=== PATIENT | female | born 1945 | race American Indian/Alaskan Native ===

== ENCOUNTER 2016-11-06 10:21 | Emergency (ER) | payer MEDICARE, OTHER ==
[2016-11-06 10:21] VITALS: PULSE 96
[2016-11-06 11:08] VITALS: RESP 18; TEMP 97.4; BMI 28.6
--- NOTE | 2016-11-06 13:36 | RAD ---
PROCEDURE: Left Ankle Radiographs. HISTORY: ankle pain s/p fall 2 days ago COMPARISON: Comparison is made to the previous study dated 06/01/2015 FINDINGS: BONES: Normal. No fracture. JOINTS: No evidence of dislocation. Mild osteoarthritic changes. SOFT TISSUES: Soft tissue swelling seen more prominent at the lateral malleolus. OTHER FINDINGS: None. IMPRESSION: No evidence of acute fracture or dislocation. Mild osteoarthritic changes. Mild soft tissue swelling more prominent at the lateral malleolus.
--- NOTE | 2016-11-06 13:37 | RAD ---
PROCEDURE: Left Foot Radiographs. HISTORY: foot pain/fall COMPARISON: None. FINDINGS: BONES: No evidence of acute fracture. Suspicious for diffuse osteopenia. Small calcaneal spur. JOINTS: Mild arthritic degenerative changes SOFT TISSUES: Normal. OTHER FINDINGS: None. IMPRESSION: No evidence of acute fracture or dislocation. Suspicious for osteopenia.
--- NOTE | 2016-11-06 14:11 | ED PDOC ---
Arrival/HPI - General Chief Complaint: Lower Extremity Problem/Injury Time Seen by Provider: 11/06/16 11:51 Historian: Patient, Family - History of Present Illness Narrative History of Present Illness (Text): 11/06/16 16:32 71-year-old female presents today with a 2 day history of left-sided ankle and foot pain. Patient states 2 days ago she was walking with her walker the walker got stuck she tripped and fell injuring the left ankle and foot. Patient states she has a history of diabetic neuropathy in the legs and always has chronic pain but she's had increased swelling and pain to the ankle and foot on the left side. Patient states she was taking Tylenol with Codeine for pain at home with some improvement. Patient states she has been able to walk on the ankle but with pain. Past Medical History - Provider Review Nursing Documentation Reviewed: Yes - Travel History Have you recently traveled outside [place] w/in the past 3 mons?: No - Infectious Disease Hx of Infectious Diseases: None - Tetanus Immunization Tetanus Immunization: Unknown - Reproductive Menopause: Yes - Cardiac Hx Cardiac Disorders: Yes (CAD) Hx Congestive Heart Failure: Yes Hx Hypertension: Yes - Pulmonary Hx Chronic Obstructive Pulmonary Disease (COPD): Yes - Neurological Hx Neurological Disorder: No - HEENT Hx HEENT Disorder: Yes (WEARS RX GLASSES) - Renal Hx Renal Failure: Yes - Endocrine/Metabolic Hx Diabetes Mellitus Type 2: Yes - Hematological/Oncological Hx Blood Disorders: Yes Hx Anemia: Yes (IRON DEFICIENCY ANEMIA) - Integumentary Hx Dermatological Disorder: No - Musculoskeletal/Rheumatological Hx Arthritis: Yes - Gastrointestinal Hx Gastrointestinal Disorders: Yes (THORACENTESIS WITH 17OO CC OF FLUID REMOVED 06-27-16) - Genitourinary/Gynecological Hx Genitourinary Disorders: Yes (HYSTERECTOMY) - Psychiatric Hx Psychophysiologic Disorder: Yes (SMOKED CIGARETTES PPD . QUIT 15 YRS AGO) Hx Anxiety: Yes Hx Substance Use: No - Surgical History Hx Cardiac Catheterization: Yes Hx Hysterectomy: Yes Hx Open Heart Surgery: Yes - Anesthesia Hx Anesthesia: Yes Hx Anesthesia Reactions: No Hx Malignant Hyperthermia: No - Suicidal Assessment Feels Threatened In Home Enviroment: No Family/Social History - Physician Review Nursing Documentation Reviewed: Yes Family/Social History: Unknown Family HX Smoking Status: Former Smoker Hx Alcohol Use: No Hx Substance Use: No Allergies/Home Meds Allergies/Adverse Reactions: Allergies shellfish Allergy (Mild, Uncoded 11/06/16 11:04) ITCHING Home Medications: Home Meds Medication Instructions Recorded Confirmed Spironolactone [Aldactone] 25 mg PO DAILY 08/17/14 11/06/16 Apixaban [Eliquis] 2.5 mg PO BID 05/05/16 11/06/16 Atorvastatin [Lipitor] 40 mg PO DAILY 05/05/16 11/06/16 Calcium Acetate [Phoslo] 1 tab PO DAILY 07/01/16 11/06/16 Folic Acid 1 mg PO DAILY 07/01/16 11/06/16 Acetaminophen/Oxycodone Hydr 1 tab PO Q6H 11/06/16 11/06/16 [Percocet 10/325 mg Tab] Magnesium Oxide [Magnesium] 400 mg PO DAILY 11/06/16 11/06/16 Review of Systems - Review of Systems Constitutional: absent: Fatigue, Fevers Respiratory: absent: SOB, Cough Cardiovascular: absent: Chest Pain, Palpitations Gastrointestinal: absent: Abdominal Pain, Diarrhea, Nausea Genitourinary Female: absent: Dysuria Musculoskeletal: Arthralgias Skin: absent: Rash, Pruritis Neurological: absent: Headache, Dizziness Physical Exam Vital Signs Reviewed: Yes Vital Signs Temp Pulse Resp BP Pulse Ox 11/06/16 14:22 60 18 115/64 94 L 11/06/16 11:00 97.4 F L 62 18 113/40 L 95 Temperature: Afebrile Blood Pressure: Normal Pulse: Regular Respiratory Rate: Normal Appearance: Positive for: Well-Appearing, Non-Toxic, Comfortable Pain Distress: None Mental Status: Positive for: Alert and Oriented X 3 - Systems Exam Head: Present: Atraumatic Neck: Present: Normal Range of Motion Cardiovascular: Present: Regular Rate and Rhythm Lower Extremity: Present: NORMAL PULSES, Tenderness (Left ankle: Positive edema and tenderness noted over both the lateral medial malleolus. No erythema. No warmth. Positive tenderness noted over the dorsal aspect of the left foot. Cap refill less than 2. Pulses intact.), Swelling, Capillary Refill < 2 s. No: Normal Inspection, CALF TENDERNESS, Normal ROM (Limited ROM of ankle with pain.) Neurological: Present: GCS=15 Skin: Present: Warm, Dry, Normal Color. No: Rashes Psychiatric: Present: Alert, Oriented x 3 Medical Decision Making ED Course and Treatment: 11/06/16 16:35 Patient nontoxic well-appearing in no distress with stable vital signs 71-year-old female with a 2 day history of ankle pain status post mechanical fall X-rays of the left foot and left ankle show no fracture as read by the radiologist Tylenol given by mouth for pain Patient placed in short leg splint. Postoperative boot given. Patient was advised to avoid ambulation on the leg. Case was discussed in depth with Dr. Mayes who will see the patient in the office tomorrow at 1pm. All results discussed in depth with the patient and family members. The patient 's daughter arranged follow-up with Dr. Mayes for tomorrow at 1 PM in the office. pt requesting rx for tylenol #3 for pain. Patient verbalizes understanding of discharge instructions and need for immediate followup. Impression: Ankle pain, foot pain tylenol #3 every 6 hours as needed for pain follow up with dr. mayes tomorrow at 11am in the office. rest, ice, elevation return if symptoms worsen,persist or if new symptoms develop. - RAD Interpretation Radiology Orders: 11/06/16 11:51 ANKLE LEFT 3 VIEWS ROUTINE [RAD] Stat FOOT LEFT 3 VIEWS ROUTINE [RAD] Stat - Medication Orders Current Medication Orders: Discontinued Medications Acetaminophen (Tylenol 325mg Tab) 650 mg PO STAT STA Stop: 11/06/16 11:52 Last Admin: 11/06/16 12:08 Dose: 650 MG [facility] Pain/Vitals Document 11/06/16 12:08 [facility] (Rec: 11/06/16 12[facility]09 [id number] Pain Reassessment Is This A Pain ReAssessment? No Procedures - Splinting Location: left ankle Hand-Made Type: fiberglass Splint: posterior short leg splint Pre-Proc Neuro Vasc Exam: normal Post-Proc Neuro Vasc Exam: normal Disposition/Present on Arrival - Present on Arrival Any Indicators Present on Arrival: Yes History of DVT/PE: No History of Uncontrolled Diabetes: Yes Urinary Catheter: No History of Decub. Ulcer: No History Surgical Site Infection Following: None - Disposition Have Diagnosis and Disposition been Completed?: Yes Diagnosis: Ankle pain, Foot pain Disposition: HOME/ ROUTINE Disposition Time: 13:12 Patient Plan: Discharge Condition: GOOD Discharge Instructions (ExitCare): Arthralgia (ED) Additional Instructions: tylenol #3 every 6 hours as needed for pain follow up with dr. mayes tomorrow at 11am in the office. rest, ice, elevation return if symptoms worsen,persist or if new symptoms develop. Prescriptions: Acetaminophen/Codeine [Tylenol/Codeine 300 MG/30 MG] 1 tab PO Q6H PRN #6 tab PRN Reason: Pain, Severe Referrals: Laurel Schultz MD [Primary Care Provider] - Follow up with primary Fabrizio Mayes DO [Staff Provider] - Follow up with primary
[2016-11-06 14:24] VITALS: BP 115/64; PULSE 60; O2SAT 94
== END 2016-11-06 14:23 | disposition home or self-care (01) ==
LOC: ED 10:21
DX: M25.572 Pain in left ankle and joints of left foot (principal); M79.672 Pain in left foot

== ENCOUNTER 2018-09-06 10:09 | Outpatient (CLI) | payer MEDICARE | END 2018-09-06 10:10 | disposition home or self-care (01) | LOC: CARDIO 10:09 | DX: I25.10 Atherosclerotic heart disease of native coronary artery without angina pectoris (principal); I10 Essential (primary) hypertension; Z95.0 Presence of cardiac pacemaker; E11.9 Type 2 diabetes mellitus without complications; R42 Dizziness and giddiness; R06.02 Shortness of breath ==

== ENCOUNTER 2018-10-18 16:44 | Inpatient (IN) | payer MEDICARE, OTHER ==
[2018-10-18 16:49] VITALS: BMI 38.9
[2018-10-18] MEDS ORDERED: Albuterol-Ipratrop 3 mg / 0.5 (3 ml) UD ONE (16:58)
--- NOTE | 2018-10-18 16:58 | ED PDOC ---
Arrival/HPI - General Chief Complaint: Shortness Of Breath Time Seen by Provider: 10/18/18 16:53 Historian: Family, EMS - History of Present Illness Narrative History of Present Illness (Text): 10/18/18 16:55 A 73 year old female, whose past medical history includes COPD and CHF, presents to the emergency department for respiratory distress from earlier today. Family reports patient has had shortness of breath for the past 2 days that progressively getting worse. Per EMS patient was found to be hypoxic on scene with a pulse ox measurement of 76. EMS reports patient responded well to supplemental oxygen and was brought to ER on CPAP. Patient was unable to provide history and review of system due to respiratory distress. PMD: Dr. Schultz, Dr. Latif Time/Duration: Other (ealier today) Symptom Onset: Gradual Symptom Course: Improving Activities at Onset: Light Context: Home Past Medical History - Provider Review Nursing Documentation Reviewed: Yes - Infectious Disease Hx of Infectious Diseases: None - Tetanus Immunization Tetanus Immunization: Unknown - Reproductive Menopause: Yes - Cardiac Hx Cardiac Disorders: Yes (CAD) Hx Congestive Heart Failure: Yes Hx Hypertension: Yes - Pulmonary Hx Chronic Obstructive Pulmonary Disease (COPD): Yes - Neurological Hx Neurological Disorder: No - HEENT Hx HEENT Disorder: Yes (WEARS RX GLASSES) - Renal Hx Renal Failure: Yes - Endocrine/Metabolic Hx Diabetes Mellitus Type 2: Yes - Hematological/Oncological Hx Blood Disorders: Yes Hx Anemia: Yes (IRON DEFICIENCY ANEMIA) - Integumentary Hx Dermatological Disorder: No - Musculoskeletal/Rheumatological Hx Arthritis: Yes - Gastrointestinal Hx Gastrointestinal Disorders: Yes (THORACENTESIS WITH 17OO CC OF FLUID REMOVED 06-27-16) - Genitourinary/Gynecological Hx Genitourinary Disorders: Yes (HYSTERECTOMY) - Psychiatric Hx Psychophysiologic Disorder: Yes (SMOKED CIGARETTES PPD . QUIT 15 YRS AGO) Hx Anxiety: Yes Hx Substance Use: No - Surgical History Hx Cardiac Catheterization: Yes Hx Hysterectomy: Yes Hx Open Heart Surgery: Yes - Anesthesia Hx Anesthesia: Yes Hx Anesthesia Reactions: No Hx Malignant Hyperthermia: No - Suicidal Assessment Feels Threatened In Home Enviroment: No Family/Social History - Physician Review Nursing Documentation Reviewed: Yes Family/Social History: No Known Family HX Smoking Status: Former Smoker Hx Alcohol Use: No Hx Substance Use: No Allergies/Home Meds Allergies/Adverse Reactions: Allergies shellfish Allergy (Mild, Uncoded 10/18/18 16:55) ITCHING Home Medications: Home Meds Medication Instructions Recorded Confirmed Spironolactone [Aldactone] 25 mg PO DAILY 08/17/14 10/18/18 Apixaban [Eliquis] 2.5 mg PO BID 05/05/16 10/18/18 Atorvastatin [Lipitor] 40 mg PO DAILY 05/05/16 10/18/18 Folic Acid 1 mg PO DAILY 07/01/16 10/18/18 Magnesium Oxide [Magnesium] 400 mg PO DAILY 11/06/16 10/18/18 Albuterol Sulfate [Proair Hfa] 0.09 mg IH DAILY 10/18/18 10/18/18 Albuterol Sulfate [Ventolin Hfa] 1 puff IH Q4 PRN 10/18/18 10/18/18 Calcitriol [Rocaltrol] 0.25 mcg PO DAILY 10/18/18 10/18/18 Ferrous Sulfate [Feosol] 325 mg PO DAILY 10/18/18 10/18/18 Pregabalin [Lyrica] 75 mg PO BID 10/18/18 10/18/18 metOLazone [Zaroxolyn] 5 mg PO DAILY 10/18/18 10/18/18 Review of Systems - Review of Systems Systems not reviewed;Unavailable: Respiratory Distress Physical Exam Vital Signs Reviewed: Yes Temperature: Febrile Blood Pressure: Hypertensive Pulse: Tachycardic Respiratory Rate: Normal Appearance: Positive for: Other (moderate respiratory distress) - Systems Exam Head: Present: Atraumatic, Normocephalic Pupils: Present: PERRL Extroacular Muscles: Present: EOMI Conjunctiva: Present: Normal Respiratory/Chest: Present: Good Air Exchange (fair air exchange bilaterally), Wheezes (diffuse bilateral expiratory wheezing), Tachypneic (tachypnei with excess muscle use) Cardiovascular: Present: Tachycardic (tachycardic but normal rhythm) Lower Extremity: Present: Edema (trace edema to bilateral lower extremities) Skin: Present: Warm, Dry, Normal Color. No: Rashes Medical Decision Making ED Course and Treatment: 10/18/18 16:55 Impression: 73 year old female presenting to the emergency room for respiratory distress. Plan: -- Type and screen -- ABG shock panel -- VBG -- Labs -- CBC -- COAGs -- Chest X-ray -- Duoneb -- Solumedrol -- Blood culture -- Urinalysis -- Reassess and disposition Prior Visits: Notes and results from previous visits were reviewed. Progress Notes: 10/18/18 18:08: patient appears much more comfortable in BIPBP, she is now able to talk underneath the mask. 10/18/18 18:[address] schultz. patient to be admitted for copd exacerbation, empiric tx for pneumonia. patient has exhibited good improvement in respiratory distress since presenting to ED. will request office technology instructor for ICU screening. 10/18/18 19:[address] henriquez, will see the patient in consultation - Critical Care Critical Care Minutes: 60 minutes - RAD Interpretation Narrative RAD Interpretations (Text): 10/18/18 19:10 Procedure: Chest X-ray Dictator: Whit Plummer Impression: Moderate interstitial edema/infection. Cardiomegaly. Median sternotomy wires. Dual lead left-sided pacemaker. Chain Tender: Radiologist - EKG Interpretation EKG Interpretation (Text): 10/18/18 17:53 1700: significant baseline artifact, undetermined rhythm at 119 bpm 10/18/18 18:52 sinus rhythm at 91 bpm, nml qrs, rbbb, no ectopy, lateral flipped t waves Interpreted by ED Physician: Yes - Scribe Statement The provider has reviewed the documentation as recorded by the Daryl Hernández All medical record entries made by the Scribe were at my direction and personally dictated by me. I have reviewed the chart and agree that the record accurately reflects my personal performance of the history, physical exam, medical decision making, and the department course for this patient. I have also personally directed, reviewed, and agree with the discharge instructions and disposition. Disposition/Present on Arrival - Present on Arrival Any Indicators Present on Arrival: No History of DVT/PE: No History of Uncontrolled Diabetes: Yes Urinary Catheter: No History of Decub. Ulcer: No History Surgical Site Infection Following: None - Disposition Have Diagnosis and Disposition been Completed?: Yes Diagnosis: Pneumonia Disposition: HOSPITALIZED Disposition Time: 18:12 Patient Plan: Admission Patient Problems: Current Active Problems Problem Status Onset Pneumonia Acute Condition: GUARDED Referrals: Laurel Schultz MD [Primary Care Provider] - Follow up with primary Forms: food.de (Bulgarian)
[2018-10-18] MEDS: Albuterol-Ipratrop 3 mg / 0.5 (3 ml) UD IH SCH ×3 (17:00→17:30)
[2018-10-18 17:05] LABS: VENOUS BLOOD GAS BASE EXCESS 4.5 mmol/L (0.0-2.0); VENOUS BLOOD GAS PO2 42 mm/Hg (30-55); VENOUS BLOOD PH 7.22 (7.32-7.43)
[2018-10-18 17:13] LABS: BASO # 0.02 K/mm3 (0.0-2.0); BASO % 0.1 % (0.0-3.0); EOS # 0.1 (0.0-0.7); EOS % 0.8 % (1.5-5.0); HEMOGLOBIN 9.4 g/dL (12.0-16.0); LYMPH # 1.6 (1.2-3.4); LYMPH % 10.6 % (22.0-35.0); MEAN CELL VOLUME 93.3 fl (80.0-105.0); MEAN CORPUSCULAR HEMOGLOBIN 27.5 pg (25.0-35.0); MEAN CORPUSCULAR HGB CONC 29.5 g/dl (31.0-37.0); MEAN PLATELET VOLUME 12.5 fl (7.0-11.0); MONO # 1.1 (0.1-0.6); MONO % 7.2 % (1.0-6.0); RBC 3.42 10^6/uL (3.5-6.1); RED CELL DISTRIBUTION WIDTH 17.4 % (11.5-14.5); WHITE BLOOD COUNT 15.5 10^3/uL (4.5-11.0)
[2018-10-18 17:23] LABS: INR 1.63; PARTIAL THROMBOPLASTIN TIME 33.6 Seconds (26.9-38.3); PROTHROMBIN TIME 18.1 SECONDS (9.4-12.5)
[2018-10-18 17:28] LABS: ARTERIAL BLOOD GAS HCO3 31.8 mmol/L (21-28); ARTERIAL BLOOD GAS O2 SAT 99.4 % (95-98); ARTERIAL BLOOD GAS PCO2 59 mm/Hg (35-45); ARTERIAL BLOOD GAS PH 7.34 (7.35-7.45); ARTERIAL BLOOD GAS TCO2 33.6 mmol.L (22-28)
[2018-10-18 17:36] LABS: URINE BILIRUBIN NEGATIVE (NEGATIVE); URINE BLOOD SMALL (NEGATIVE); URINE GLUCOSE (UA) 100 mg/dL (NEGATIVE); URINE LEUKOCYTE ESTERASE MODERATE Leu/uL (NEGATIVE); URINE PROTEIN 100 mg/dL (<30 mg/dL); URINE UROBILINOGEN 0.2 E.U./dL (<1 E.U./dL)
[2018-10-18] MEDS ORDERED: Piperacillin/Tazobact 3.375 gm 100 ML IVPB STA (17:37)
[2018-10-18 18:23] LABS: URINE APPEARANCE CLEAR (CLEAR)
[2018-10-18 18:30] LABS: URINE EPITHELIAL CELLS MANY /hpf (0-5); URINE RBC 20 - 25 /hpf (0-2)
[2018-10-18 18:44] LABS: ALB/GLOB RATIO 1.3 (1.1-1.8); CALCIUM 9.6 mg/dL (8.4-10.5)
--- NOTE | 2018-10-18 18:52 | RAD ---
HISTORY: chest pain COMPARISON: Chest x-ray performed 07/01/16 TECHNIQUE: Chest, one view. FINDINGS: Examination limited by habitus LUNGS: Moderate interstitial edema or infection. Please note that chest x-ray has limited sensitivity for the detection of pulmonary masses. PLEURA: No significant pleural effusion identified. No definite pneumothorax . CARDIOVASCULAR: Median sternotomy wires. Dual lead left-sided pacemaker. Cardiomegaly. Dense atherosclerotic calcifications of the aorta. OSSEOUS STRUCTURES: Degenerative changes. VISUALIZED UPPER ABDOMEN: Unremarkable. OTHER FINDINGS: None. IMPRESSION: Moderate interstitial edema/infection. Cardiomegaly. Median sternotomy wires. Dual lead left-sided pacemaker.
[2018-10-18 19:03] LABS: TROPONIN I 0.05 ng/mL
[2018-10-18] MEDS ORDERED: Albuterol-Ipratrop 3 mg / 0.5 (3 ml) UD IH PRN (19:35)
[2018-10-18] MEDS ORDERED: Oxycodone/Acetaminophen 5/325 mg Tab PO PRN (19:35)
--- NOTE | 2018-10-18 20:23 | CP.PCM.CON ---
<Jacinot Bob - Last Filed: 10/18/18 21:17> History of Present Illness - History of Present Illness History of Present Illness: Patient is a 71 female with a history of COPD, diastolic CHF, moderate pulmonary hypertension, moderate mitral regurgitation, modeterate tricuspid regurgitation, chronic kidney disease, CAD s/p open heart surgery, NIDDM who presents with complaints of increased shortness of breath for the past 2 days with productive cough associated with clear sputum. As per EMS patient was found to be hypoxic with o2 saturation of 76^. Patient was then placed on CPAP and latasha to the ED. In ED patient was noted to be in respiratory distress and was placed on BiPAP. Patient admits to sick contacts; daughter and niece were both sick whom patient was exposed to. 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 absent: Chest Pain - Respiratory Respiratory: Cough, Dyspnea, Wheezing - Gastrointestinal Gastrointestinal: absent: Diarrhea - Genitourinary Genitourinary: absent: Dysuria - Musculoskeletal Musculoskeletal: absent: Back Pain - Neurological Neurological: absent: Dizziness Past Patient History - Infectious Disease Hx of Infectious Diseases: None - Tetanus Immunizations Tetanus Immunization: Unknown - Past Medical History & Family History Past Medical History?: Yes - Past Social History Smoking Status: Former Smoker - CARDIAC Hx Cardiac Disorders: Yes (CAD) Hx Congestive Heart Failure: Yes Hx Hypertension: Yes - PULMONARY Hx Chronic Obstructive Pulmonary Disease (COPD): Yes - NEUROLOGICAL Hx Neurological Disorder: No - HEENT Hx HEENT Problems: Yes (WEARS RX GLASSES) - RENAL Hx Renal Failure: Yes - ENDOCRINE/METABOLIC Hx Diabetes Mellitus Type 2: Yes - HEMATOLOGICAL/ONCOLOGICAL Hx Blood Disorders: Yes Hx Anemia: Yes (IRON DEFICIENCY ANEMIA) - INTEGUMENTARY Hx Dermatological Problems: No - MUSCULOSKELETAL/RHEUMATOLOGICAL Hx Arthritis: Yes - GASTROINTESTINAL Hx Gastrointestinal Disorders: Yes (THORACENTESIS WITH 17OO CC OF FLUID REMOVED 06-27-16) - GENITOURINARY/GYNECOLOGICAL Hx Genitourinary Disorders: Yes (HYSTERECTOMY) - PSYCHIATRIC Hx Psychophysiologic Disorder: Yes (SMOKED CIGARETTES PPD . QUIT 15 YRS AGO) Hx Anxiety: Yes Hx Substance Use: No - SURGICAL HISTORY Hx Cardiac Catheterization: Yes Hx Hysterectomy: Yes Hx Open Heart Surgery: Yes - ANESTHESIA Hx Anesthesia: Yes Hx Anesthesia Reactions: No Hx Malignant Hyperthermia: No Meds Allergies/Adverse Reactions: Allergies Allergy/AdvReac Type Severity Reaction Status Date / Time shellfish Allergy Mild ITCHING Uncoded 10/18/18 16:55 - Medications Medications: Current Medications Acetaminophen (Tylenol 325mg Tab) 650 mg PO Q6H PRN PRN Reason: Fever >100.4 F Albuterol/Ipratropium (Duoneb 3 Mg/0.5 Mg (3 Ml) Ud) 3 ml IH Q2H PRN PRN Reason: Shortness of Breath Apixaban (Eliquis) 2.5 mg PO BID [facility]; Protocol Last Admin: 10/18/18 20:16 Dose: 2.5 mg Atorvastatin Calcium (Lipitor) 40 mg PO DAILY [facility] Folic Acid (Folic Acid) 1 mg PO DAILY [facility] Furosemide (Lasix) 40 mg IVP DAILY [facility] Cefepime HCl (Maxipime 1gm) 1 gm in 100 mls @ 100 mls/hr IVPB Q12 [facility]; Protocol Azithromycin (Zithromax 500mg In Ns) 500 mg in 250 mls @ 167 mls/hr IVPB DAILY [facility]; Protocol Insulin Human Regular (Humulin R High) 0 units SC ACHS [facility]; Protocol Levalbuterol HCl (Xopenex) 1.25 mg IH [id number] [facility] Lisinopril (Zestril) 20 mg PO DAILY [facility] Methylprednisolone (Solu-Medrol) 40 mg IV Q12 [facility] Metoprolol Tartrate (Lopressor) 50 mg PO BID [facility] Last Admin: 10/18/18 20:15 Dose: 50 mg Montelukast Sodium (Singulair) 10 mg PO HS [facility] Ondansetron HCl (Zofran Inj) 4 mg IVP Q6H PRN PRN Reason: Nausea/Vomiting Oxycodone/Acetaminophen (Percocet 5/325 Mg Tab) 1 tab PO Q6H PRN PRN Reason: Pain, moderate (4-7) Stop: 10/21/18 19:36 Pantoprazole Sodium (Protonix Ec Tab) 40 mg PO 0630 [facility] Pregabalin (Lyrica) 75 mg PO BID [facility] Last Admin: 10/18/18 20:16 Dose: 75 mg Sildenafil Citrate (Revatio) 20 mg PO BID [facility] Spironolactone (Aldactone) 25 mg PO DAILY [facility] Physical Exam - Head Exam Head Exam: ATRAUMATIC, NORMAL INSPECTION, NORMOCEPHALIC - Eye Exam Eye Exam: EOMI, Normal appearance - ENT Exam ENT Exam: Mucous Membranes Dry - Respiratory Exam Respiratory Exam: Wheezes - Cardiovascular Exam Cardiovascular Exam: REGULAR RHYTHM, +S1, +S2 - GI/Abdominal Exam GI & Abdominal Exam: Normal Bowel Sounds, Soft - Extremities Exam Extremities exam: Positive for: normal inspection - Neurological Exam Neurological exam: Alert, CN II-XII Intact, Oriented x3 - Psychiatric Exam Psychiatric exam: Normal Affect, Normal Mood - Skin Skin Exam: Normal Color, Warm Results - Vital Signs Recent Vital Signs: Last Vital Signs Temp 100.8 F H 10/18/18 19:08 Pulse 75 10/18/18 20:15 Resp 18 10/18/18 19:08 BP 164/57 H 10/18/18 20:15 Pulse Ox 98 10/18/18 19:08 - Labs Result Diagrams: 10/18/18 17:00 10/18/18 17:40 Labs: Laboratory Results - last 24 hr 10/18/18 10/18/18 10/18/18 16:55 17:00 17:00 WBC 15.5 H RBC 3.42 L Hgb 9.4 L Hct 31.9 L MCV 93.3 MCH 27.5 MCHC 29.5 L RDW 17.4 H Plt Count 234 MPV 12.5 H Neut % (Auto) 81.3 H Lymph % (Auto) 10.6 L [place] % (Auto) 7.2 H Eos % (Auto) 0.8 L Baso % (Auto) 0.1 Lymph # (Auto) 1.6 [place] # (Auto) 1.1 H Eos # (Auto) 0.1 Baso # (Auto) 0.02 Absolute Neuts (auto) 12.61 H PT 18.1 H INR 1.63 APTT 33.6 pCO2 pO2 42 HCO3 ABG pH ABG Total CO2 ABG O2 Saturation ABG Base Excess ABG Potassium VBG pH 7.22 L VBG pCO2 86.0 H* VBG HCO3 35.2 H VBG Total CO2 37.8 H VBG O2 Sat (Calc) 72.0 H VBG Base Excess 4.5 H VBG Potassium 6.6 H* Sodium 140.0 Chloride 103.0 Glucose 224 H Lactate 1.9 FiO2 21.0 Pressure Support Inspiratory BiPAP Blood Gas Comments Cv Crit Value Called To Jayashree branch rn Crit Value Called By Rst Blood Gas Notified Time 1701 Potassium Carbon Dioxide Anion Gap BUN Creatinine Est GFR ( Amer) Est GFR (Non-Af Amer) Random Glucose Calcium Phosphorus Magnesium Total Bilirubin AST ALT Alkaline Phosphatase Troponin I NT-Pro-B Natriuret Pep Total Protein Albumin Globulin Albumin/Globulin Ratio Arterial Blood Potassium Venous Blood Potassium 6.6 H* Urine Color Urine Appearance Urine pH Ur Specific Vega Urine Protein Urine Glucose (UA) Urine Ketones Urine Blood Urine Nitrate Urine Bilirubin Urine Urobilinogen Ur Leukocyte Esterase Urine RBC Urine WBC Ur Epithelial Cells Blood Type Blood Type Confirm Antibody Screen BBK History Checked 10/18/18 10/18/18 10/18/18 17:20 17:20 17:40 WBC RBC Hgb Hct MCV MCH MCHC RDW Plt Count MPV Neut % (Auto) Lymph % (Auto) [place] % (Auto) Eos % (Auto) Baso % (Auto) Lymph # (Auto) [place] # (Auto) Eos # (Auto) Baso # (Auto) Absolute Neuts (auto) PT INR APTT pCO2 59 H pO2 100.0 HCO3 31.8 H ABG pH 7.34 L ABG Total CO2 33.6 H ABG O2 Saturation 99.4 H ABG Base Excess 4.3 H ABG Potassium 5.0 VBG pH VBG pCO2 VBG HCO3 VBG Total CO2 VBG O2 Sat (Calc) VBG Base Excess VBG Potassium Sodium 140.0 141 Chloride 106.0 99 Glucose 200 H Lactate 0.8 FiO2 40.0 Pressure Support 7 Inspiratory BiPAP 12 Blood Gas Comments Crit Value Called To Crit Value Called By Blood Gas Notified Time Potassium 5.1 H Carbon Dioxide 33 Anion Gap 14 BUN 37 H Creatinine 2.1 H Est GFR ( Amer) 28 Est GFR (Non-Af Amer) 23 Random Glucose 207 H Calcium 9.6 Phosphorus 4.7 H Magnesium 1.9 Total Bilirubin 0.3 AST 43 H ALT 24 Alkaline Phosphatase 94 Troponin I 0.05 D NT-Pro-B Natriuret Pep 3960 H Total Protein 7.2 Albumin 4.0 Globulin 3.2 Albumin/Globulin Ratio 1.3 Arterial Blood Potassium 5.0 Venous Blood Potassium Urine Color yellow Urine Appearance Clear Urine pH 6.0 Ur Specific Vega 1.025 Urine Protein 100 H Urine Glucose (UA) 100 H Urine Ketones Negative Urine Blood Small H Urine Nitrate Negative Urine Bilirubin Negative Urine Urobilinogen 0.2 Ur Leukocyte Esterase Moderate H Urine RBC 20 - 25 H Urine WBC 10 - 15 H Ur Epithelial Cells Many H Blood Type Blood Type Confirm Antibody Screen BBK History Checked 10/18/18 10/18/18 17:50 18:20 WBC RBC Hgb Hct MCV MCH MCHC RDW Plt Count MPV Neut % (Auto) Lymph % (Auto) [place] % (Auto) Eos % (Auto) Baso % (Auto) Lymph # (Auto) [place] # (Auto) Eos # (Auto) Baso # (Auto) Absolute Neuts (auto) PT INR APTT pCO2 pO2 HCO3 ABG pH ABG Total CO2 ABG O2 Saturation ABG Base Excess ABG Potassium VBG pH VBG pCO2 VBG HCO3 VBG Total CO2 VBG O2 Sat (Calc) VBG Base Excess VBG Potassium Sodium Chloride Glucose Lactate FiO2 Pressure Support Inspiratory BiPAP Blood Gas Comments Crit Value Called To Crit Value Called By Blood Gas Notified Time Potassium Carbon Dioxide Anion Gap BUN Creatinine Est GFR ( Amer) Est GFR (Non-Af Amer) Random Glucose Calcium Phosphorus Magnesium Total Bilirubin AST ALT Alkaline Phosphatase Troponin I NT-Pro-B Natriuret Pep Total Protein Albumin Globulin Albumin/Globulin Ratio Arterial Blood Potassium Venous Blood Potassium Urine Color Urine Appearance Urine pH Ur Specific Vega Urine Protein Urine Glucose (UA) Urine Ketones Urine Blood Urine Nitrate Urine Bilirubin Urine Urobilinogen Ur Leukocyte Esterase Urine RBC Urine WBC Ur Epithelial Cells Blood Type O POSITIVE Blood Type Confirm O POSITIVE Antibody Screen Negative BBK History Checked No verified bt Assessment & Plan - Assessment and Plan (Free Text) Assessment: 71 F with history of COPD, Diastolic CHF, CKD presenting with shortness of breath and sputum production x 2 days found to be in respiratory distress requiring BiPAP. Plan: -Continue with BiPAP -Continue with duonebs, solumdrol, singulair, sildefanil -Continue with abx: Azithromycin to treat pneumonia -Proaclitonin -Maintain SpO2>90% -Continue diuresis with lasix and aldactone -Due to patient being stable on BiPAP patient does not need ICU and will be further monitored on telemetry. <Mini Juárez - Last Filed: 10/19/18 05:30> Meds - Medications Medications: Current Medications Acetaminophen (Tylenol 325mg Tab) 650 mg PO Q6H PRN PRN Reason: Fever >100.4 F Albuterol/Ipratropium (Duoneb 3 Mg/0.5 Mg (3 Ml) Ud) 3 ml IH Q2H PRN PRN Reason: Shortness of Breath Apixaban (Eliquis) 2.5 mg PO BID [facility]; Protocol Last Admin: 10/18/18 20:16 Dose: 2.5 mg Atorvastatin Calcium (Lipitor) 40 mg PO DAILY [facility] Folic Acid (Folic Acid) 1 mg PO DAILY [facility] Furosemide (Lasix) 40 mg IVP DAILY [facility] Cefepime HCl (Maxipime 1gm) 1 gm in 100 mls @ 100 mls/hr IVPB Q12 [facility]; Protocol Last Admin: 10/18/18 22:06 Dose: 100 mls/hr Azithromycin (Zithromax 500mg In Ns) 500 mg in 250 mls @ 167 mls/hr IVPB DAILY [facility]; Protocol Insulin Human Regular (Humulin R High) 0 units SC ACHS [facility]; Protocol Last Admin: 10/18/18 22:00 Dose: Not Given Levalbuterol HCl (Xopenex) 1.25 mg IH [id number] [facility] Last Admin: 10/19/18 01:07 Dose: Not Given Lisinopril (Zestril) 20 mg PO DAILY [facility] Methylprednisolone (Solu-Medrol) 40 mg IV Q12 [facility] Last Admin: 10/18/18 22:07 Dose: 40 mg Metoprolol Tartrate (Lopressor) 50 mg PO BID [facility] Last Admin: 10/18/18 20:15 Dose: 50 mg Montelukast Sodium (Singulair) 10 mg PO HS [facility] Last Admin: 10/18/18 22:07 Dose: 10 mg Ondansetron HCl (Zofran Inj) 4 mg IVP Q6H PRN PRN Reason: Nausea/Vomiting Oxycodone/Acetaminophen (Percocet 5/325 Mg Tab) 1 tab PO Q6H PRN PRN Reason: Pain, moderate (4-7) Stop: 10/21/18 19:36 Pantoprazole Sodium (Protonix Ec Tab) 40 mg PO 0630 [facility] Pregabalin (Lyrica) 75 mg PO BID [facility] Last Admin: 10/18/18 20:16 Dose: 75 mg Sildenafil Citrate (Revatio) 20 mg PO BID [facility] Spironolactone (Aldactone) 25 mg PO DAILY [facility] Results - Vital Signs Recent Vital Signs: Last Vital Signs Temp 100.8 F H 10/18/18 19:08 Pulse 80 10/19/18 02:00 Resp 20 10/19/18 00:25 BP 165/67 H 10/18/18 21:32 Pulse Ox 100 10/18/18 21:32 - Labs Result Diagrams: 10/18/18 17:00 10/18/18 17:40 Labs: Laboratory Results - last 24 hr 10/18/18 10/18/18 10/18/18 16:55 17:00 17:00 WBC 15.5 H RBC 3.42 L Hgb 9.4 L Hct 31.9 L MCV 93.3 MCH 27.5 MCHC 29.5 L RDW 17.4 H Plt Count 234 MPV 12.5 H Neut % (Auto) 81.3 H Lymph % (Auto) 10.6 L [place] % (Auto) 7.2 H Eos % (Auto) 0.8 L Baso % (Auto) 0.1 Lymph # (Auto) 1.6 [place] # (Auto) 1.1 H Eos # (Auto) 0.1 Baso # (Auto) 0.02 Absolute Neuts (auto) 12.61 H PT 18.1 H INR 1.63 APTT 33.6 pCO2 pO2 42 HCO3 ABG pH ABG Total CO2 ABG O2 Saturation ABG Base Excess ABG Potassium VBG pH 7.22 L VBG pCO2 86.0 H* VBG HCO3 35.2 H VBG Total CO2 37.8 H VBG O2 Sat (Calc) 72.0 H VBG Base Excess 4.5 H VBG Potassium 6.6 H* Sodium 140.0 Chloride 103.0 Glucose 224 H Lactate 1.9 FiO2 21.0 Pressure Support Inspiratory BiPAP Blood Gas Comments Cv Crit Value Called To Jayashree branch rn Crit Value Called By Rst Blood Gas Notified Time 1701 Potassium Carbon Dioxide Anion Gap BUN Creatinine Est GFR ( Amer) Est GFR (Non-Af Amer) Random Glucose Calcium Phosphorus Magnesium Total Bilirubin AST ALT Alkaline Phosphatase Troponin I NT-Pro-B Natriuret Pep Total Protein Albumin Globulin Albumin/Globulin Ratio Procalcitonin Arterial Blood Potassium Venous Blood Potassium 6.6 H* Urine Color Urine Appearance Urine pH Ur Specific Vega Urine Protein Urine Glucose (UA) Urine Ketones Urine Blood Urine Nitrate Urine Bilirubin Urine Urobilinogen Ur Leukocyte Esterase Urine RBC Urine WBC Ur Epithelial Cells Blood Type Blood Type Confirm Antibody Screen BBK History Checked 10/18/18 10/18/18 10/18/18 17:00 17:20 17:20 WBC RBC Hgb Hct MCV MCH MCHC RDW Plt Count MPV Neut % (Auto) Lymph % (Auto) [place] % (Auto) Eos % (Auto) Baso % (Auto) Lymph # (Auto) [place] # (Auto) Eos # (Auto) Baso # (Auto) Absolute Neuts (auto) PT INR APTT pCO2 59 H pO2 100.0 HCO3 31.8 H ABG pH 7.34 L ABG Total CO2 33.6 H ABG O2 Saturation 99.4 H ABG Base Excess 4.3 H ABG Potassium 5.0 VBG pH VBG pCO2 VBG HCO3 VBG Total CO2 VBG O2 Sat (Calc) VBG Base Excess VBG Potassium Sodium 140.0 Chloride 106.0 Glucose 200 H Lactate 0.8 FiO2 40.0 Pressure Support 7 Inspiratory BiPAP 12 Blood Gas Comments Crit Value Called To Crit Value Called By Blood Gas Notified Time Potassium Carbon Dioxide Anion Gap BUN Creatinine Est GFR ( Amer) Est GFR (Non-Af Amer) Random Glucose Calcium Phosphorus Magnesium Total Bilirubin AST ALT Alkaline Phosphatase Troponin I NT-Pro-B Natriuret Pep Total Protein Albumin Globulin Albumin/Globulin Ratio Procalcitonin 0.35 Arterial Blood Potassium 5.0 Venous Blood Potassium Urine Color yellow Urine Appearance Clear Urine pH 6.0 Ur Specific Vega 1.025 Urine Protein 100 H Urine Glucose (UA) 100 H Urine Ketones Negative Urine Blood Small H Urine Nitrate Negative Urine Bilirubin Negative Urine Urobilinogen 0.2 Ur Leukocyte Esterase Moderate H Urine RBC 20 - 25 H Urine WBC 10 - 15 H Ur Epithelial Cells Many H Blood Type Blood Type Confirm Antibody Screen BBK History Checked 10/18/18 10/18/18 10/18/18 17:40 17:50 18:20 WBC RBC Hgb Hct MCV MCH MCHC RDW Plt Count MPV Neut % (Auto) Lymph % (Auto) [place] % (Auto) Eos % (Auto) Baso % (Auto) Lymph # (Auto) [place] # (Auto) Eos # (Auto) Baso # (Auto) Absolute Neuts (auto) PT INR APTT pCO2 pO2 HCO3 ABG pH ABG Total CO2 ABG O2 Saturation ABG Base Excess ABG Potassium VBG pH VBG pCO2 VBG HCO3 VBG Total CO2 VBG O2 Sat (Calc) VBG Base Excess VBG Potassium Sodium 141 Chloride 99 Glucose Lactate FiO2 Pressure Support Inspiratory BiPAP Blood Gas Comments Crit Value Called To Crit Value Called By Blood Gas Notified Time Potassium 5.1 H Carbon Dioxide 33 Anion Gap 14 BUN 37 H Creatinine 2.1 H Est GFR ( Amer) 28 Est GFR (Non-Af Amer) 23 Random Glucose 207 H Calcium 9.6 Phosphorus 4.7 H Magnesium 1.9 Total Bilirubin 0.3 AST 43 H ALT 24 Alkaline Phosphatase 94 Troponin I 0.05 D NT-Pro-B Natriuret Pep 3960 H Total Protein 7.2 Albumin 4.0 Globulin 3.2 Albumin/Globulin Ratio 1.3 Procalcitonin Arterial Blood Potassium Venous Blood Potassium Urine Color Urine Appearance Urine pH Ur Specific Vega Urine Protein Urine Glucose (UA) Urine Ketones Urine Blood Urine Nitrate Urine Bilirubin Urine Urobilinogen Ur Leukocyte Esterase Urine RBC Urine WBC Ur Epithelial Cells Blood Type O POSITIVE Blood Type Confirm O POSITIVE Antibody Screen Negative BBK History Checked No verified bt 10/18/18 20:51 WBC RBC Hgb Hct MCV MCH MCHC RDW Plt Count MPV Neut % (Auto) Lymph % (Auto) [place] % (Auto) Eos % (Auto) Baso % (Auto) Lymph # (Auto) [place] # (Auto) Eos # (Auto) Baso # (Auto) Absolute Neuts (auto) PT INR APTT pCO2 pO2 HCO3 ABG pH ABG Total CO2 ABG O2 Saturation ABG Base Excess ABG Potassium VBG pH VBG pCO2 VBG HCO3 VBG Total CO2 VBG O2 Sat (Calc) VBG Base Excess VBG Potassium Sodium Chloride Glucose Lactate FiO2 Pressure Support Inspiratory BiPAP Blood Gas Comments Crit Value Called To Crit Value Called By Blood Gas Notified Time Potassium Carbon Dioxide Anion Gap BUN Creatinine Est GFR ( Amer) Est GFR (Non-Af Amer) Random Glucose Calcium Phosphorus Magnesium Total Bilirubin AST ALT Alkaline Phosphatase Troponin I 0.12 D NT-Pro-B Natriuret Pep Total Protein Albumin Globulin Albumin/Globulin Ratio Procalcitonin Arterial Blood Potassium Venous Blood Potassium Urine Color Urine Appearance Urine pH Ur Specific Vega Urine Protein Urine Glucose (UA) Urine Ketones Urine Blood Urine Nitrate Urine Bilirubin Urine Urobilinogen Ur Leukocyte Esterase Urine RBC Urine WBC Ur Epithelial Cells Blood Type Blood Type Confirm Antibody Screen BBK History Checked Attending/Attestation - Attestation I have personally seen and examined this patient.: Yes I have fully participated in the care of the patient.: Yes I have reviewed all pertinent clinical information: Yes
--- NOTE | 2018-10-18 21:58 | PCM.SEPTIC ---
<Jacinto Bob - Last Filed: 10/18/18 21:56> Sepsis Progress Note - Reassessment Type Date of Evaluation: 10/18/18 Time of Evaluation: 19:00 Reassessment Type: Non-invasive reassessment - Non Invasive Reassessment Were the most recent vital sign reviewed: Yes Vital Sign (Latest): Temp Pulse Resp BP Pulse Ox 100.8 F H 83 17 165/67 H 100 10/18/18 19:08 10/18/18 21:32 10/18/18 21:32 10/18/18 21:32 10/18/18 21:32 Cardiovascular: Yes: Regular Rate, Rhythm Respiratory: Yes: Wheezing Capillary Refill: Normal (Less than 2 sec) Skin: Normal Color <Mini Juárez - Last Filed: 10/19/18 05:30> Sepsis Progress Note - Non Invasive Reassessment Vital Sign (Latest): Temp Pulse Resp BP Pulse Ox 100.8 F H 80 20 165/67 H 100 10/18/18 19:08 10/19/18 02:00 10/19/18 00:25 10/18/18 21:32 10/18/18 21:32 Attending/Attestation - Attestation I have personally seen and examined this patient.: Yes I have fully participated in the care of the patient.: Yes I have reviewed all pertinent clinical information, including history, physical exam and plan: Yes
[2018-10-18] MEDS: Insulin Reg-HIGH-Coverage SC SCH (22:00)
[2018-10-18] MEDS: Cefepime 1gm in NS 100ml 1 GM/100 ML BAG IVPB SCH (22:06)
[2018-10-18] MEDS: MethylPREDNISolone 40 mg Vial IV SCH (22:07)
[2018-10-18] MEDS ORDERED: Vancomycin 1gm in NS 250ml 1 GM/250 ML BAG IVPB ONE (23:15)
[2018-10-19] MEDS: Levalbuterol 1.25 MG/3 ML Inhal Soln UD IH SCH ×6 (00:48→20:40)
--- NOTE | 2018-10-19 02:11 | HP ---
DATE OF EXAM: 10/18/2018 HISTORY OF PRESENT ILLNESS: The patient is 73 years old, known to me from office practice, was brought in because of increasing cough, congestion, fever, and shortness of breath. She was very short of breath that has been going on for last few days, but was completely short of breath this morning, so they called ambulance and she was found to be hypoxic with pulse ox of 76%, so she was given oxygen on her way to the hospital, and she was transferred to emergency room for further evaluation. The patient complained of having fever and chills. PAST MEDICAL HISTORY: She has a past medical history significant for; 1. Hypertension. 2. Congestive heart failure. 3. COPD. 4. History of pulmonary hypertension. 5. Chronic kidney disease. 6. Coronary artery disease status post open heart surgery. 7. Non-insulin dependent diabetes. 8. Diabetic neuropathy. 9. Chronic bilateral knee osteoarthritis. SOCIAL HISTORY She has a history of heavy smoking in the past and used to socially drink. ALLERGIES SHE IS ALLERGIC TO SHELLFISH. HOME MEDICATIONS: She is on Lasix at 40 mg daily, Lyrica 75 mg twice a day, Percocet 1 tablet every 6 hours p.r.n. She is on spironolactone 25 mg daily, 40 mg daily, Eliquis 2.5 mg twice a day, Zetia 20 mg twice a day, folic acid 1 mg daily, Singulair 10 mg daily, magnesium oxide 400 mg daily, lisinopril 20 mg daily, metoprolol 50 mg twice a day. REVIEW OF SYSTEMS: Significant for cough, congestion, and shortness of breath. PHYSICAL EXAMINATION GENERAL: She is awake and alert but short of breath. VITAL SIGNS: She has a temperature of 101.6, pulse 112, respirations 20, blood pressure 138/101. HEART: S1, S2 audible. LUNGS: Bilateral soft crackles in upper lung area. ABDOMEN: Soft. Obese. Nontender. No rebound. No guarding. NEUROLOGIC: The patient is awake and alert. Able to communicate. LABORATORY DATA: WBC 15.5, hemoglobin 9.4, hematocrit 31.9, platelet of 234. Chemistry; sodium 141, potassium 5.1, chloride 99, CO2 of 33, BUN 37, creatinine 2.1, blood sugar of 207. LFTs are within normal limits. . Urinalysis shows moderate leukocyte and 10 to 15 wbc's. IMPRESSION: 1. Chronic obstructive pulmonary disease exacerbation. 2. Congestive heart failure exacerbation. 3. Community-acquired pneumonia. 4. Pulmonary hypertension. 5. Coronary artery disease. 6. Noninsulin-dependent diabetes. 7. Hyperlipidemia. PLAN: We will do blood culture, urine cultures are sent. We will start her on IV steroid, IV antibiotics, and start on IV diuretics and monitor her blood sugar. We will follow up. Laurel Schultz MD
[2018-10-19] MEDS: Pantoprazole 40 mg EC Tab PO SCH (05:51)
[2018-10-19 07:33] LABS: HEMOGLOBIN 8.3 g/dL (12.0-16.0); LYMPH # 0.2 (1.2-3.4); LYMPH % 2.9 % (22.0-35.0); MEAN CELL VOLUME 93.2 fl (80.0-105.0); MEAN CORPUSCULAR HEMOGLOBIN 26.9 pg (25.0-35.0); MEAN CORPUSCULAR HGB CONC 28.8 g/dl (31.0-37.0); MONO # 0.4 (0.1-0.6); MONO % 4.4 % (1.0-6.0); PLATELET COUNT 184 10^3/uL (120.0-450.0); RBC 3.09 10^6/uL (3.5-6.1); RED CELL DISTRIBUTION WIDTH 17.2 % (11.5-14.5); WHITE BLOOD COUNT 8.4 10^3/uL (4.5-11.0)
[2018-10-19 07:51] LABS: ALB/GLOB RATIO 1.2 (1.1-1.8); ALBUMIN 4.2 g/dL (3.0-4.8); CALCIUM 9.2 mg/dL (8.4-10.5)
[2018-10-19] MEDS: Insulin Reg-HIGH-Coverage SC SCH ×4 (08:29→21:29)
[2018-10-19 09:32] LABS: BAND 1 % (0-2); LYMPHOCYTE 2 % (22.0-35.0); MONOCYTE 4 % (1.0-6.0); NEUTROPHIL 93 % (50.0-70.0); PLATELET ESTIMATE NORMAL (NORMAL)
[2018-10-19 09:33] LABS: ANISOCYTOSIS SLIGHT; HYPOCHROMIA SLIGHT; LARGE PLATELETS PRESENT
--- NOTE | 2018-10-19 10:41 | CT ---
Date of service: 10/19/2018 CT chest without IV contrast Indication: sob Technique: Contiguous axial images were obtained through the chest without intravenous contrast enhancement. Sagittal and coronal reconstructions were generated and reviewed. This CT exam was performed using 1 or more of the following dose reduction techniques: Automated exposure control, adjustment of the MAA and/or kV according to patient size, and/or use of iterative reconstruction technique. Radiation dose (DLP): 740.54 MGy-cm. Comparison: Chest x-ray performed 10/18/18, CT chest without contrast performed 06/25/16 Findings: Visualized portions of the inferior thyroid gland appear unremarkable. The unenhanced mediastinal and hilar vascular structures appear grossly unremarkable except for extensive atherosclerotic calcifications. Cardiomegaly. Dense coronary artery and mitral annulus calcifications. Median sternotomy wires. Dual lead left-sided pacemaker. Atherosclerotic calcifications the aorta. Emphysematous changes. Ground-glass and nodular opacities suspected to reflect pneumonia within the right middle and bilateral lower lobes. Pulmonary neoplasm cannot be excluded. Recommend chest CT follow-up upon completion of treatment of acute symptoms in order to assess for resolution. No pleural effusion. No pneumothorax. Small hiatal hernia. Limited visualization of the noncontrast upper abdomen: 2.2 x 2.1 cm right adrenal gland mass measures approximately 28 HU, indeterminate. Degenerative changes. Kyphosis. Osseous demineralization. Impression: Ground-glass and nodular opacities suspected to reflect pneumonia within the right middle and bilateral lower lobes. Neoplasm cannot be excluded. Recommend chest CT follow-up upon completion of treatment of acute symptoms in order to assess for complete resolution and exclude pulmonary nodule. Emphysematous changes. Cardiomegaly. Dense coronary artery and mitral annulus calcifications. The median sternotomy wires. Dual lead left-sided pacemaker. Indeterminate 2.2 x 2.1 cm right adrenal gland mass. Outpatient MRI adrenal gland protocol may be considered for further evaluation if indicated.
[2018-10-19] MEDS: Cefepime 1gm in NS 100ml 1 GM/100 ML BAG IVPB SCH ×2 (11:01→21:28)
[2018-10-19] MEDS: Azithromycin 500MG/NS 250ml 500 MG/250 ML BAG IVPB SCH (11:01)
[2018-10-19] MEDS: MethylPREDNISolone 40 mg Vial IV SCH ×2 (11:01→21:28)
[2018-10-19] MEDS: Sildenafil 20 MG TAB PO SCH ×2 (11:02→18:03)
--- NOTE | 2018-10-19 14:05 | CP.PCM.CON ---
History of Present Illness - History of Present Illness History of Present Illness: General Surgery Consult note for Dr. Shirley Patient is a 73 yr old female with PMH COPD, diastolic CHF, moderate pulmonary hypertension, moderate mitral regurgitation, modeterate tricuspid regurgitation, chronic kidney disease, CAD s/p open heart surgery, N[place]DM[place] [facility] and COPD exacerbation. Surgery has been consulted for evaluation of an umbilical hernia. patient states that hernia has been present for many years and has not ever been painful. She states that it often grows larger or appears when she is standing or straining. She states that she has always been able to push the hernia back in without any pain or difficulty. She denies any change in BM, n/v, and abdominal pain at this time. PMH:COPD, diastolic CHF, moderate pulmonary hypertension, moderate mitral regurgitation, modeterate tricuspid regurgitation, chronic kidney disease, CAD s/p open heart surgery, NIDDM PSH: Hysterectomy, CABG, Pacemaker placement All: Shellfish Social: denies ETOH, illicit drugs and tobacco PMD: Perveen Cardio: Salomon Review of Systems - Review of Systems All systems: reviewed and no additional remarkable complaints except (as per HPI) Past Patient History - Infectious Disease Hx of Infectious Diseases: None - Tetanus Immunizations Tetanus Immunization: Unknown - Past Medical History & Family History Past Medical History?: Yes - Past Social History Smoking Status: Never Smoked - CARDIAC Hx Cardiac Disorders: Yes (CAD) Hx Congestive Heart Failure: Yes Hx Hypertension: Yes Hx Pacemaker: Yes (left side) - PULMONARY Hx Respiratory Disorders: Yes Hx Bronchitis: Yes Hx Chronic Obstructive Pulmonary Disease (COPD): Yes Hx Emphysema: Yes Hx Pneumonia: Yes - NEUROLOGICAL Hx Neurological Disorder: No - HEENT Hx HEENT Problems: Yes (WEARS RX GLASSES) - RENAL Hx Chronic Kidney Disease: Yes Hx Renal Failure: Yes - ENDOCRINE/METABOLIC Hx Endocrine Disorders: Yes Hx Diabetes Mellitus Type 2: Yes - HEMATOLOGICAL/ONCOLOGICAL Hx Blood Disorders: Yes Hx Anemia: Yes (IRON DEFICIENCY ANEMIA) - INTEGUMENTARY Hx Dermatological Problems: No - MUSCULOSKELETAL/RHEUMATOLOGICAL Hx Musculoskeletal Disorders: Yes Hx Arthritis: Yes Hx Falls: Yes (2 weeks ago) - GASTROINTESTINAL Hx Gastrointestinal Disorders: Yes (THORACENTESIS WITH 17OO CC OF FLUID REMOVED 06-27-16) - GENITOURINARY/GYNECOLOGICAL Hx Genitourinary Disorders: Yes (HYSTERECTOMY) - PSYCHIATRIC Hx Psychophysiologic Disorder: Yes (SMOKED CIGARETTES PPD . QUIT 15 YRS AGO) Hx Anxiety: Yes Hx Substance Use: No - SURGICAL HISTORY Hx Surgeries: Yes Hx Cardiac Catheterization: Yes Hx Hysterectomy: Yes Hx Open Heart Surgery: Yes (CABG, pacemaker) - ANESTHESIA Hx Anesthesia: Yes Hx Anesthesia Reactions: No Hx Malignant Hyperthermia: No Meds Allergies/Adverse Reactions: Allergies Allergy/AdvReac Type Severity Reaction Status Date / Time shellfish Allergy Mild ITCHING Uncoded 10/18/18 16:55 - Medications Medications: Current Medications Acetaminophen (Tylenol 325mg Tab) 650 mg PO Q6H PRN PRN Reason: Fever >100.4 F Albuterol/Ipratropium (Duoneb 3 Mg/0.5 Mg (3 Ml) Ud) 3 ml IH Q2H PRN PRN Reason: Shortness of Breath Last Admin: 10/19/18 10:38 Dose: 3 ml Apixaban (Eliquis) 2.5 mg PO BID [facility]; Protocol Last Admin: 10/19/18 11:02 Dose: 2.5 mg Atorvastatin Calcium (Lipitor) 40 mg PO DAILY [facility] Last Admin: 10/19/18 11:02 Dose: 40 mg Folic Acid (Folic Acid) 1 mg PO DAILY [facility] Last Admin: 10/19/18 11:02 Dose: 1 mg Furosemide (Lasix) 40 mg IVP DAILY [facility] Last Admin: 10/19/18 11:01 Dose: 40 mg Cefepime HCl (Maxipime 1gm) 1 gm in 100 mls @ 100 mls/hr IVPB Q12 [facility]; Protocol Last Admin: 10/19/18 11:01 Dose: 100 mls/hr Azithromycin (Zithromax 500mg In Ns) 500 mg in 250 mls @ 167 mls/hr IVPB DAILY [facility]; Protocol Last Admin: 10/19/18 11:01 Dose: 167 mls/hr Insulin Human Regular (Humulin R High) 0 units SC ACHS [facility]; Protocol Last Admin: 10/19/18 12:22 Dose: 7 units Levalbuterol HCl (Xopenex) 1.25 mg IH [id number] [facility] Last Admin: 10/19/18 13:19 Dose: 1.25 mg Lisinopril (Zestril) 20 mg PO DAILY [facility] Last Admin: 10/19/18 11:02 Dose: 20 mg Methylprednisolone (Solu-Medrol) 40 mg IV Q12 [facility] Last Admin: 10/19/18 11:01 Dose: 40 mg Metoprolol Tartrate (Lopressor) 50 mg PO BID [facility] Last Admin: 10/19/18 11:02 Dose: 50 mg Montelukast Sodium (Singulair) 10 mg PO HS [facility] Last Admin: 10/18/18 22:07 Dose: 10 mg Ondansetron HCl (Zofran Inj) 4 mg IVP Q6H PRN PRN Reason: Nausea/Vomiting Last Admin: 10/19/18 07:55 Dose: 4 mg Oxycodone/Acetaminophen (Percocet 5/325 Mg Tab) 1 tab PO Q6H PRN PRN Reason: Pain, moderate (4-7) Stop: 10/21/18 19:36 Pantoprazole Sodium (Protonix Ec Tab) 40 mg PO 0630 [facility] Last Admin: 10/19/18 05:51 Dose: 40 mg Pregabalin (Lyrica) 75 mg PO BID [facility] Last Admin: 10/19/18 11:02 Dose: 75 mg Sildenafil Citrate (Revatio) 20 mg PO BID [facility] Last Admin: 10/19/18 11:02 Dose: 20 mg Spironolactone (Aldactone) 25 mg PO DAILY [facility] Last Admin: 10/19/18 11:02 Dose: 25 mg Physical Exam - Constitutional Appears: Well, Non-toxic, No Acute Distress - Eye Exam Eye Exam: EOMI - ENT Exam ENT Exam: Mucous Membranes Moist - Respiratory Exam Respiratory Exam: NORMAL BREATHING PATTERN - Cardiovascular Exam Cardiovascular Exam: REGULAR RHYTHM - GI/Abdominal Exam GI & Abdominal Exam: Hernia (small 2-3 cm reducible umbilical hernia), Soft. absent: Tenderness - Extremities Exam Extremities exam: Negative for: calf tenderness - Neurological Exam Neurological exam: Alert, Oriented x3 - Psychiatric Exam Psychiatric exam: Normal Affect, Normal Mood - Skin Skin Exam: Dry, Intact, Normal Color, Warm Additional comments: no skin changes over hernia site Results - Vital Signs Recent Vital Signs: Last Vital Signs Temp 97.5 F L 10/19/18 12:00 Pulse 69 10/19/18 12:00 Resp 18 10/19/18 12:00 BP 144/52 L 10/19/18 12:00 Pulse Ox 100 10/19/18 06:00 - Labs Result Diagrams: 10/19/18 07:00 10/19/18 07:00 Labs: Laboratory Results - last 24 hr 10/18/18 10/18/18 10/18/18 16:55 17:00 17:00 WBC 15.5 H RBC 3.42 L Hgb 9.4 L Hct 31.9 L MCV 93.3 MCH 27.5 MCHC 29.5 L RDW 17.4 H Plt Count 234 MPV 12.5 H Neut % (Auto) 81.3 H Lymph % (Auto) 10.6 L Kinney % (Auto) 7.2 H Eos % (Auto) 0.8 L Baso % (Auto) 0.1 Lymph # (Auto) 1.6 Kinney # (Auto) 1.1 H Eos # (Auto) 0.1 Baso # (Auto) 0.02 Absolute Neuts (auto) 12.61 H Neutrophils % (Manual) Band Neutrophils % Lymphocytes % (Manual) Monocytes % (Manual) Platelet Evaluation Large Platelets Hypochromasia Anisocytosis (manual) PT 18.1 H INR 1.63 APTT 33.6 pCO2 pO2 42 HCO3 ABG pH ABG Total CO2 ABG O2 Saturation ABG Base Excess ABG Potassium VBG pH 7.22 L VBG pCO2 86.0 H* VBG HCO3 35.2 H VBG Total CO2 37.8 H VBG O2 Sat (Calc) 72.0 H VBG Base Excess 4.5 H VBG Potassium 6.6 H* Sodium 140.0 Chloride 103.0 Glucose 224 H Lactate 1.9 FiO2 21.0 Pressure Support Inspiratory BiPAP Blood Gas Comments Cv Crit Value Called To Jayashree branch rn Crit Value Called By Rst Blood Gas Notified Time 1701 Potassium Carbon Dioxide Anion Gap BUN Creatinine Est GFR ( Amer) Est GFR (Non-Af Amer) Random Glucose Calcium Phosphorus Magnesium Total Bilirubin AST ALT Alkaline Phosphatase Troponin I NT-Pro-B Natriuret Pep Total Protein Albumin Globulin Albumin/Globulin Ratio Procalcitonin Arterial Blood Potassium Venous Blood Potassium 6.6 H* Urine Color Urine Appearance Urine pH Ur Specific [place] Urine Protein Urine Glucose (UA) Urine Ketones Urine Blood Urine Nitrate Urine Bilirubin Urine Urobilinogen Ur Leukocyte Esterase Urine RBC Urine WBC Ur Epithelial Cells Ur L.pneumophila Ag Blood Type Blood Type Confirm Antibody Screen BBK History Checked 10/18/18 10/18/18 10/18/18 17:00 17:20 17:20 WBC RBC Hgb Hct MCV MCH MCHC RDW Plt Count MPV Neut % (Auto) Lymph % (Auto) Kinney % (Auto) Eos % (Auto) Baso % (Auto) Lymph # (Auto) Kinney # (Auto) Eos # (Auto) Baso # (Auto) Absolute Neuts (auto) Neutrophils % (Manual) Band Neutrophils % Lymphocytes % (Manual) Monocytes % (Manual) Platelet Evaluation Large Platelets Hypochromasia Anisocytosis (manual) PT INR APTT pCO2 59 H pO2 100.0 HCO3 31.8 H ABG pH 7.34 L ABG Total CO2 33.6 H ABG O2 Saturation 99.4 H ABG Base Excess 4.3 H ABG Potassium 5.0 VBG pH VBG pCO2 VBG HCO3 VBG Total CO2 VBG O2 Sat (Calc) VBG Base Excess VBG Potassium Sodium 140.0 Chloride 106.0 Glucose 200 H Lactate 0.8 FiO2 40.0 Pressure Support 7 Inspiratory BiPAP 12 Blood Gas Comments Crit Value Called To Crit Value Called By Blood Gas Notified Time Potassium Carbon Dioxide Anion Gap BUN Creatinine Est GFR ( Amer) Est GFR (Non-Af Amer) Random Glucose Calcium Phosphorus Magnesium Total Bilirubin AST ALT Alkaline Phosphatase Troponin I NT-Pro-B Natriuret Pep Total Protein Albumin Globulin Albumin/Globulin Ratio Procalcitonin 0.35 Arterial Blood Potassium 5.0 Venous Blood Potassium Urine Color yellow Urine Appearance Clear Urine pH 6.0 Ur Specific [place] 1.025 Urine Protein 100 H Urine Glucose (UA) 100 H Urine Ketones Negative Urine Blood Small H Urine Nitrate Negative Urine Bilirubin Negative Urine Urobilinogen 0.2 Ur Leukocyte Esterase Moderate H Urine RBC 20 - 25 H Urine WBC 10 - 15 H Ur Epithelial Cells Many H Ur L.pneumophila Ag Blood Type Blood Type Confirm Antibody Screen BBK History Checked 10/18/18 10/18/18 10/18/18 17:40 17:50 18:20 WBC RBC Hgb Hct MCV MCH MCHC RDW Plt Count MPV Neut % (Auto) Lymph % (Auto) Kinney % (Auto) Eos % (Auto) Baso % (Auto) Lymph # (Auto) Kinney # (Auto) Eos # (Auto) Baso # (Auto) Absolute Neuts (auto) Neutrophils % (Manual) Band Neutrophils % Lymphocytes % (Manual) Monocytes % (Manual) Platelet Evaluation Large Platelets Hypochromasia Anisocytosis (manual) PT INR APTT pCO2 pO2 HCO3 ABG pH ABG Total CO2 ABG O2 Saturation ABG Base Excess ABG Potassium VBG pH VBG pCO2 VBG HCO3 VBG Total CO2 VBG O2 Sat (Calc) VBG Base Excess VBG Potassium Sodium 141 Chloride 99 Glucose Lactate FiO2 Pressure Support Inspiratory BiPAP Blood Gas Comments Crit Value Called To Crit Value Called By Blood Gas Notified Time Potassium 5.1 H Carbon Dioxide 33 Anion Gap 14 BUN 37 H Creatinine 2.1 H Est GFR ( Amer) 28 Est GFR (Non-Af Amer) 23 Random Glucose 207 H Calcium 9.6 Phosphorus 4.7 H Magnesium 1.9 Total Bilirubin 0.3 AST 43 H ALT 24 Alkaline Phosphatase 94 Troponin I 0.05 D NT-Pro-B Natriuret Pep 3960 H Total Protein 7.2 Albumin 4.0 Globulin 3.2 Albumin/Globulin Ratio 1.3 Procalcitonin Arterial Blood Potassium Venous Blood Potassium Urine Color Urine Appearance Urine pH Ur Specific [place] Urine Protein Urine Glucose (UA) Urine Ketones Urine Blood Urine Nitrate Urine Bilirubin Urine Urobilinogen Ur Leukocyte Esterase Urine RBC Urine WBC Ur Epithelial Cells Ur L.pneumophila Ag Blood Type O POSITIVE Blood Type Confirm O POSITIVE Antibody Screen Negative BBK History Checked No verified bt 10/18/18 10/19/18 10/19/18 20:51 00:09 07:00 WBC RBC Hgb Hct MCV MCH MCHC RDW Plt Count MPV Neut % (Auto) Lymph % (Auto) Kinney % (Auto) Eos % (Auto) Baso % (Auto) Lymph # (Auto) Kinney # (Auto) Eos # (Auto) Baso # (Auto) Absolute Neuts (auto) Neutrophils % (Manual) Band Neutrophils % Lymphocytes % (Manual) Monocytes % (Manual) Platelet Evaluation Large Platelets Hypochromasia Anisocytosis (manual) PT INR APTT pCO2 pO2 HCO3 ABG pH ABG Total CO2 ABG O2 Saturation ABG Base Excess ABG Potassium VBG pH VBG pCO2 VBG HCO3 VBG Total CO2 VBG O2 Sat (Calc) VBG Base Excess VBG Potassium Sodium Chloride Glucose Lactate FiO2 Pressure Support Inspiratory BiPAP Blood Gas Comments Crit Value Called To Crit Value Called By Blood Gas Notified Time Potassium Carbon Dioxide Anion Gap BUN Creatinine Est GFR ( Amer) Est GFR (Non-Af Amer) Random Glucose Calcium Phosphorus Magnesium Total Bilirubin AST ALT Alkaline Phosphatase Troponin I 0.12 D NT-Pro-B Natriuret Pep Total Protein Albumin Globulin Albumin/Globulin Ratio Procalcitonin 13.08 H Arterial Blood Potassium Venous Blood Potassium Urine Color Urine Appearance Urine pH Ur Specific [place] Urine Protein Urine Glucose (UA) Urine Ketones Urine Blood Urine Nitrate Urine Bilirubin Urine Urobilinogen Ur Leukocyte Esterase Urine RBC Urine WBC Ur Epithelial Cells Ur L.pneumophila Ag Negative Blood Type Blood Type Confirm Antibody Screen BBK History Checked 10/19/18 10/19/18 07:00 07:00 WBC 8.4 D RBC 3.09 L Hgb 8.3 L Hct 28.8 L MCV 93.2 MCH 26.9 MCHC 28.8 L RDW 17.2 H Plt Count 184 MPV Neut % (Auto) 92.7 H Lymph % (Auto) 2.9 L Kinney % (Auto) 4.4 Eos % (Auto) 0.0 L Baso % (Auto) 0.0 Lymph # (Auto) 0.2 L [place] # (Auto) 0.4 Eos # (Auto) 0.0 Baso # (Auto) 0.00 Absolute Neuts (auto) 7.76 H Neutrophils % (Manual) 93 H Band Neutrophils % 1 Lymphocytes % (Manual) 2 L Monocytes % (Manual) 4 Platelet Evaluation Normal Large Platelets Present Hypochromasia Slight Anisocytosis (manual) Slight PT INR APTT pCO2 pO2 HCO3 ABG pH ABG Total CO2 ABG O2 Saturation ABG Base Excess ABG Potassium VBG pH VBG pCO2 VBG HCO3 VBG Total CO2 VBG O2 Sat (Calc) VBG Base Excess VBG Potassium Sodium 143 Chloride 102 Glucose Lactate FiO2 Pressure Support Inspiratory BiPAP Blood Gas Comments Crit Value Called To Crit Value Called By Blood Gas Notified Time Potassium 4.9 Carbon Dioxide 35 H Anion Gap 12 BUN 45 H Creatinine 2.0 H Est GFR ( Amer) 29 Est GFR (Non-Af Amer) 24 Random Glucose 256 H Calcium 9.2 Phosphorus Magnesium Total Bilirubin 0.5 AST 39 H ALT 23 Alkaline Phosphatase 89 Troponin I NT-Pro-B Natriuret Pep Total Protein 7.5 Albumin 4.2 Globulin 3.4 Albumin/Globulin Ratio 1.2 Procalcitonin Arterial Blood Potassium Venous Blood Potassium Urine Color Urine Appearance Urine pH Ur Specific [place] Urine Protein Urine Glucose (UA) Urine Ketones Urine Blood Urine Nitrate Urine Bilirubin Urine Urobilinogen Ur Leukocyte Esterase Urine RBC Urine WBC Ur Epithelial Cells Ur L.pneumophila Ag Blood Type Blood Type Confirm Antibody Screen BBK History Checked Assessment & Plan - Assessment and Plan (Free Text) Assessment: 73 yr old female with PMH COPD, diastolic CHF, moderate pulmonary hypertension, moderate mitral regurgitation, modeterate tricuspid regurgitation, chronic kidney disease, CAD s/p open heart surgery, NIDDM presenting with asymptomatic reducible umbilical hernia Plan: -Patient will need full cardiac worup and medical clearance prior to procedure - recommend outpatient follow up for elective procedure if possible - continue treatment of COPD exacerbation and possible URI as per Primary - continue cardiology medications as per Dr. Latif - please reconsult as necessary - discussed with Dr. Fern Bradshaw, PGY 1 - Date & Time Date: 10/19/18 Time: 12:15
--- NOTE | 2018-10-19 14:41 | CON ---
DATE OF CONSULTATION: 10/19/2018 The patient is seen earlier today in room 262, bed 2. CHIEF COMPLAINT: Shortness of breath x2 days. HISTORY OF PRESENT ILLNESS: This is a 73-year-old female with a history of diastolic congestive heart failure, chronic obstructive lung disease, coronary artery disease, hypertension, diabetes, hyperparathyroidism, panic disorder, moderate pulmonary hypertension, mitral regurgitation, tricuspid regurgitation, and kidney disease, who is admitted now with chronic obstructive lung disease, and Infectious Disease consultation requested. The patient did have a fever in the emergency room. The patient is having cough, which is productive and associated with shortness of breath. No abdominal pain. No diarrhea or constipation. No dysuria or frequency. No headaches or blurred vision. REVIEW OF SYSTEMS: A 12-point review of systems is performed. PAST MEDICAL HISTORY: Significant for diastolic congestive heart failure, coronary artery disease, hypertension, diabetes, chronic obstructive lung disease, hyperparathyroidism, panic disorder, moderate pulmonary hypertension, mitral regurgitation, tricuspid regurgitation, and kidney disease. PAST SURGICAL HISTORY: Significant for coronary bypass graft, permanent pacemaker, hysterectomy, and thoracentesis. ALLERGIES: THE PATIENT IS ALLERGIC TO SHELL FISH. PHYSICAL EXAMINATION: VITAL SIGNS: The patient's temperature is 99, T-max is 100.8, respiratory rate of 20, heart rate was up to 112, blood pressure 138/100. HEENT: Examination of HEENT is unremarkable. NECK: Supple. LUNGS: Have decreased breath sounds. HEART: Normal S1, S2. ABDOMEN: Soft. LABORATORY DATA: Laboratory examination reveals a white count of 15,500, hemoglobin of 9, and platelets of 234. Chemistries revealed a BUN of 37, creatinine of 2.1. Prior to this, the creatinine was 1 on the previous admission. The urinalysis is noted with 10-15 wbc's with leukocyte esterase positive and microbiology is noted. The patient had a CT scan of the chest, which is results pending. History and physical examination of Dr. Schultz is reviewed. ASSESSMENT AND PLAN: This is a 73-year-old female admitted with severe sepsis with community-acquired pneumonia and acute kidney injury, which changed her creatinine from 1 to 2.1 with acute diastolic congestive heart failure on top of chronic congestive heart failure. The patient was given a dose of vancomycin on azithromycin and cefepime pending blood cultures, urine cultures, sputum cultures, and urine for Legionella antigen and procalcitonin. The patient is also on Solu-Medrol and initial workup in progress and MRSA screen is in progress. We will follow closely with you. Juan Miguel Malone MD
--- NOTE | 2018-10-19 14:57 | CON ---
DATE OF CONSULTATION: 10/19/2018 CARDIOLOGY CONSULTATION (FOR DR. TIWARI) HISTORY: The patient is a 73-year-old woman, who presents with acute shortness of breath. She denies chest pain. PAST MEDICAL HISTORY: The patient's past medical history includes hypertension, diabetes mellitus, obesity, is a former smoker, status post coronary bypass surgery and status post pacemaker placement in the past. She is known to have renal insufficiency. On admission, her troponins were mildly elevated including a ProBNP that was 3960. She denies angina. Her breathing is better now. SOCIAL HISTORY: The patient does not smoke now. REVIEW OF SYSTEMS: Fourteen-point review of systems is reviewed in detail. All symptoms are included above. PHYSICAL EXAMINATION: VITAL SIGNS: Blood pressure is 163/65, the heart rate is in the 90s. NECK: Negative JVD. LUNGS: Clear to auscultation. HEART: Reveals S1, S2. EXTREMITIES: No edema noted. EKG shows right bundle-branch block with frequent APCs and diffuse ST-T changes. LABORATORY DATA: Troponins have gone from 0.05 to 0.12. BUN and creatinine are 45 and 2. Hemoglobin is 8.3. IMPRESSION: 1. Acute systolic congestive heart failure. 2. Non-ST elevation myocardial infarction. 3. Renal insufficiency. 4. Diabetes mellitus. 5. Hypertension. 6. Obesity. 7. History of coronary artery bypass surgery. 8. History of pacemaker placement. PLAN: Given these findings, the patient will be anticoagulated. Lasix has been ordered. We will repeat an echocardiogram. We will discuss with Dr. Tiwari about the need for it, and discussed the risks, benefits of repeat cardiac catheterization. Khurram Kraft MD
--- NOTE | 2018-10-19 17:10 | PN ---
DATE: 10/19/2018 SUBJECTIVE: The patient is 73 years old, seen and examined, seems to be doing a little better, less cough and congestion. Complained of some periumbilical area pain. She has a ventral hernia. She states that it hurts when she coughs or sneeze. She was referred to ____ as outpatient, but she never went because her baby sister had similar situation and she of complication of ventral hernia repair, so she was scared to get evaluation even. She states that her shortness of breath is a little better than yesterday. PHYSICAL EXAMINATION: VITAL SIGNS: She is afebrile. Pulse 90, respiration 19, blood pressure 163/65. LUNGS: Bilateral expiratory rhonchi. HEART: S1 and S2 audible, irregular rate control. ABDOMEN: Soft. Nontender. Obese. Small umbilical hernia, reducible. EXTREMITIES: Bilateral legs no edema. LABORATORY DATA: WBC 8.4, hemoglobin 8.3, hematocrit 28, platelet of 184. Chemistry: Sodium 143, potassium 4.9, chloride 102, CO2 of 35, BUN 45, creatinine 2, blood sugar of 256. Her blood cultures are pending. She had CT scan of the chest done that shows ground-glass and nodular opacity, suspect it to reflect pneumonia within the right middle and bilateral lower lobes with emphysema changes. She has cardiomegaly, indeterminate 2.2 x 2.1 cm right adrenal gland mass. ASSESSMENT: 1. Right middle and bilateral lower lobe pneumonia. 2. Congestive heart failure. 3. Chronic obstructive pulmonary disease. 4. History of pulmonary hypertension. 5. Insulin-dependent diabetes. PLAN: Currently, the patient is on Aldactone. She is on Eliquis. She is on folic acid. Will continue on Lipitor. She is on metoprolol. She is on 40 mg of prednisone. She is on Zithromax and she was given a dose of vancomycin. She is on cefepime. Blood culture and urine cultures are pending. I will order for a flu test. We will cut down her steroid, monitor blood sugar. I will request consult with Dr. Shirley to evaluate for umbilical hernia. Laurel Schultz MD
[2018-10-20] MEDS: Levalbuterol 1.25 MG/3 ML Inhal Soln UD IH SCH ×4 (02:40→22:10)
[2018-10-20] MEDS: Pantoprazole 40 mg EC Tab PO SCH (05:44)
--- NOTE | 2018-10-20 07:50 | CARD ---
APPROVED REPORT Date of service: 10/18/2018 EKG Measurement Heart [id number] <Conclusion> Undetermined rhythm Right bundle branch block Anterior infarct, age undetermined Inferior injury pattern ACUTE NE Abnormal ECG
[2018-10-20] MEDS: Insulin Reg-HIGH-Coverage SC SCH ×4 (08:42→21:26)
[2018-10-20] MEDS: MethylPREDNISolone 40 mg Vial IV SCH ×2 (09:24→21:27)
[2018-10-20] MEDS: Cefepime 1gm in NS 100ml 1 GM/100 ML BAG IVPB SCH ×2 (09:25→21:26)
[2018-10-20] MEDS: Sildenafil 20 MG TAB PO SCH ×2 (09:27→17:16)
--- NOTE | 2018-10-20 13:29 | PN ---
DATE: 10/20/2018 SUBJECTIVE: The patient is seen earlier. She is awake and responsive. No fevers. OBJECTIVE: VITAL SIGNS: Her temperature has responded and she initially came with a 101.6 temperature, now temperature is 98 with a heart rate of 61 and respiratory rate of 20 with a blood pressure of 143/50. HEENT: Unremarkable. NECK: Supple. LUNGS: Have decreased breath sounds. HEART: Normal S1, S2. ABDOMEN: Soft, nontender. No organomegaly. No rebound. No guarding. No masses. LABORATORY EXAMINATION: Reveals a white count is also responded from 15,500 down to 8.4, hemoglobin of 8, platelets of 184. Chemistries reveals a creatinine is 2. Procalcitonin is 13.08. Urinalysis is noted to be significant. Urine for Legionella antigen is negative. Microbiology reveals one bottle is positive for coag-negative staph. The other blood culture is negative and the sputum culture is pending. The urine culture is pending. Currently the patient is on cefepime and the patient is also on Solu-Medrol. The patient has had received a dose of vancomycin. The patient is also on IV azithromycin. ASSESSMENT AND PLAN: This is a 73-year-old female with history of diastolic congestive heart failure, chronic obstructive lung disease, coronary artery disease, hypertension, diabetes, hyperparathyroidism, panic disorder, moderate pulmonary hypertension and mitral regurgitation, tricuspid as admitted with now the patient is admitted with; 1. Severe sepsis with a community-acquired pneumonia and acute kidney injury and with diastolic congestive heart failure on top of chronic congestive heart failure, on cefepime and azithromycin with coag-negative staph bacteremia, most consistent with contamination and negative urine Legionella antigen, elevated procalcitonin. We will discontinue the IV Zithromax and to p.o. Zithromax. The patient is somewhat improved although still feels weak. We will complete short course of antibiotics pending final culture results. Review of the EKG reveals the patient's QTC is 422. We will follow with you and check on the sputum cultures, may be able to switch to p.o. antibiotics within the next 24 hours if the patient remains afebrile. Juan Miguel Malone MD
[2018-10-20] MEDS: Azithromycin 500MG/NS 250ml 500 MG/250 ML BAG IVPB SCH (15:20)
--- NOTE | 2018-10-20 16:35 | CARD ---
APPROVED REPORT Date of service: 10/19/2018 EXAM: Two-dimensional and M-mode echocardiogram with Doppler and color Doppler. INDICATION Congestive Heart Failure 2D DIMENSIONS Left Atrium (2D)4.9 (1.6-4.0cm)IVSd1.5 (0.7-1.1cm) Aortic Root (2D)2.8 (2.0-3.7cm)LVDd4.5 (3.9-5.9cm) PWd1.4 (0.7-1.1cm)LVDs3.0 (2.5-4.0cm) FS (%) 33.3 %LVEF (%)62.1 (>50%) M-Mode DIMENSIONS Aortic Cusp Exc.1.90 (1.5-2.0cm) Aortic Valve AoV Peak Eloveanb227.0cm/Ghada Peak GR.15mmHg Mitral Valve MV E Mvsbqypo179.0cm/sMV E Peak Gr.13mmHgMV A Vogvjdrk437.0cm/s MV E Mean Gr.7mmHgE/A ratio1.0 TDI Lateral E' Peak V6.80cm/sMedial E' Peak V4.87cm/sE/Lateral E'28.7 E/Medial E'40.0 Pulmonary Valve PV Peak Clhscecq680.0cm/sPV Peak Grad.7mmHg Tricuspid Valve TR Peak Ktdsdcez145ip/sRAP [id number] Peak Gr.52mmHg OSVE20zhMn LEFT VENTRICLE The left ventricle is normal size. There is mild to moderate concentric left ventricular hypertrophy. The left ventricular function is normal.EF-55-60% There is normal LV segmental wall motion. Transmitral Doppler flow pattern is Grade III-reversible restrictive diastolic dysfunction. No left ventricle thrombus noted on this study. There is no ventricular septal defect visualized. There is no left ventricular aneurysm. There is no mass noted in the left ventricle. RIGHT VENTRICLE The right ventricle is mildly to moderately dilated. There is normal right ventricular wall thickness. Systolic function ofRV is mildly to moderately reduced. There is a pacemaker lead in the right ventricle. ATRIA The left atrium is mildly dilated. The right atrium is mildly dilated. There is a catheter/pacemaker lead seen in the right atrium. The interatrial septum is intact with no evidence for an atrial septal defect. AORTIC VALVE The aortic valve is thickened but opens well. There is trace aortic regurgitation. Aortic sclerosis Vs Mild There is no aortic valvular vegetation. MITRAL VALVE Mitral annular calcification is moderate to severe. The mitral valve is thickened but opens well. Mitral regurgitation is trace. There is mild mitral valve stenosis. There is no evidence of mitral valve prolapse. TRICUSPID VALVE The tricuspid valve leaflets are thickened , but open well. There is mild tricuspid regurgitation.RVSP-55 mmof Hg. There is mild to moderate pulmonary hypertension. There is no tricuspid valve stenosis. There is no tricuspid valve prolapse or vegetation. PULMONIC VALVE The pulmonic valve is not well visualized. GREAT VESSELS The aortic root is normal in size. The ascending aorta is normal in size. The pulmonary artery is normal. The IVC is normal in size and collapses >50% with inspiration. PERICARDIAL EFFUSION There is no pleural effusion. There is no pericardial effusion. <Conclusion> The left ventricle is normal size. There is mild to moderate concentric left ventricular hypertrophy. The left ventricular function is normal.EF-55-60% The right ventricle is mildly to moderately dilated. Systolic function of RV is mildly to moderately reduced. There is trace aortic regurgitation. Aortic sclerosis Vs Mild Mitral regurgitation is trace. There is mild mitral valve stenosis. There is mild tricuspid regurgitation.RVSP-55 mmof Hg. There is mild to moderate pulmonary hypertension. The IVC is normal in size and collapses >50% with inspiration. There is no pericardial effusion.
--- NOTE | 2018-10-20 19:39 | PN ---
DATE: 10/20/2018 SUBJECTIVE: The patient is a 73-year-old, seen and examined, looks much better than yesterday, less short of breath, and able to speak full sentence. PHYSICAL EXAMINATION: VITAL SIGNS: She is afebrile, pulse 61, respirations 18, and blood pressure 143/54. LUNGS: Bilateral fair airflow expiratory rhonchi. HEART: S1 and S2 audible. ABDOMEN: Soft and nontender. No rebound. No guarding. NEUROLOGIC: The patient is awake, alert and oriented, able to communicate. LABORATORY DATA: There is no new lab available today. Her blood culture positive for coag-negative Staphylococcus, second bottle is negative. CT scan of the chest was done that shows bilateral ground-glass nodular opacities. She has a right middle and bilateral lower lobe pneumonia. ASSESSMENT: 1. Bilateral pneumonia. 2. Chronic obstructive pulmonary disease. 3. Hypertension. 4. Hyperlipidemia. 5. Congestive heart failure. 6. Pulmonary hypertension. 7. History of chronic atrial fibrillation. PLAN: We will followup echocardiogram. Continue her on Eliquis and nebulizer treatment. She is on IV cefepime and she is on Zithromax. I will cut down her steroid since she is not actively wheezing at this point. I will request for physical therapy evaluation and I will reevaluate the patient in a.m. Laurel Schultz MD
[2018-10-21] MEDS: Levalbuterol 1.25 MG/3 ML Inhal Soln UD IH SCH ×4 (02:26→19:31)
[2018-10-21] MEDS: Pantoprazole 40 mg EC Tab PO SCH (05:29)
[2018-10-21 06:50] LABS: HEMOGLOBIN 7.9 g/dL (12.0-16.0); LYMPH # 0.4 (1.2-3.4); LYMPH % 4.8 % (22.0-35.0); MEAN CELL VOLUME 95.5 fl (80.0-105.0); MEAN CORPUSCULAR HEMOGLOBIN 27.3 pg (25.0-35.0); MEAN CORPUSCULAR HGB CONC 28.6 g/dl (31.0-37.0); MONO # 0.5 (0.1-0.6); MONO % 6.4 % (1.0-6.0); RBC 2.89 10^6/uL (3.5-6.1); RED CELL DISTRIBUTION WIDTH 16.8 % (11.5-14.5); WHITE BLOOD COUNT 7.5 10^3/uL (4.5-11.0)
[2018-10-21 06:51] LABS: INR 1.46; PROTHROMBIN TIME 16.5 SECONDS (9.4-12.5)
[2018-10-21 07:11] LABS: TROPONIN I 0.04 ng/mL
[2018-10-21 07:58] LABS: ALB/GLOB RATIO 1.2 (1.1-1.8); ALBUMIN 3.9 g/dL (3.0-4.8); CALCIUM 8.9 mg/dL (8.4-10.5)
[2018-10-21] MEDS: Insulin Reg-HIGH-Coverage SC SCH ×4 (08:12→22:40)
[2018-10-21] MEDS ORDERED: Calcium Gluconate in NS 1 GM/50 ML BAG IV ONE ×2 (08:45→19:11)
--- NOTE | 2018-10-21 09:01 | PN ---
DATE: 10/20/2018 SUBJECTIVE: The patient's breathing is better. PHYSICAL EXAMINATION: VITAL SIGNS: Blood pressure 143/54, heart rate is in the 60s. NECK: Negative JVD. LUNGS: Minimal wheezing noted. HEART: S1, S2. EXTREMITIES: Without edema. LABORATORY DATA: Hemoglobin is 8.3. Chemistries, BUN and creatinine 45 and 2 with a glucose of 256. IMPRESSION: 1. Non-ST elevation myocardial infarction. 2. Dyspnea, which is improved. 3. Obesity. 4. Coronary artery disease. 5. History of pacemaker placement. 6. History of coronary artery bypass surgery. 7. Diabetes mellitus. 8. Hypertension. PLAN: Given these findings, in the morning we will refer the case back to Dr. Latif. I will discuss with him about the risks, benefits of repeat catheterization on the patient. Khurram Kraft MD
[2018-10-21] MEDS: Cefepime 1gm in NS 100ml 1 GM/100 ML BAG IVPB SCH ×2 (09:03→23:36)
[2018-10-21] MEDS: Sildenafil 20 MG TAB PO SCH ×2 (09:06→17:02)
[2018-10-21] MEDS: MethylPREDNISolone 40 mg Vial IV SCH ×2 (09:09→22:22)
[2018-10-21 11:56] LABS: IRON 22 ug/dL (45-180)
[2018-10-21 12:05] LABS: % IRON SATURATION 7 % (20-55); TOTAL IRON BINDING CAPACITY 317 ug/dL (265-497)
--- NOTE | 2018-10-21 14:33 | PN ---
DATE: 10/21/2018 SUBJECTIVE: The patient seen earlier today. She is doing better. She states overall she is much improved. Her temperature is down. PHYSICAL EXAMINATION: VITAL SIGNS: Temperature is 98, blood pressure is 140/50, respiratory rate 18, heart rate of 78. HEENT: Unremarkable. NECK: Supple. LUNGS: Decreased breath sounds. HEART: Normal S1, S2. ABDOMEN: Soft. LABORATORY DATA: White count of 7.5, hemoglobin of 7.9. Chemistries are noted and urinalysis is reviewed. Serology, Legionella is negative. Mycoplasma is one bottle is coag-negative staph and sputum culture is pending. The patient is on cefepime, p.o. Zithromax with a procalcitonin of 13.08 from the . ASSESSMENT AND PLAN: This is a 73-year-old female with history of diastolic congestive heart failure, chronic obstructive lung disease, coronary artery disease, hypertension, diabetes, hyperparathyroidism, panic disorder, moderate pulmonary hypertension, mitral regurgitation, tricuspid regurgitation, admitted with severe sepsis with community-acquired pneumonia, acute kidney injury, diastolic congestive heart failure on top of chronic congestive heart failure with coag-negative staph bacteremia, most likely a contamination, on cefepime and Zithromax, day #4, would complete 4 to 7 days of antibiotics. Today is day #4 of 4 to 7 days of antibiotics. Juan Miguel Malone MD
[2018-10-21] MEDS ORDERED: Insulin Regular 1 UNITS/0.01 ML ML SC STA (15:14)
[2018-10-21] MEDS ORDERED: Albuterol 0.083% Inhal Sol (2.5 mg/3 mL) UD IH STA (15:15)
[2018-10-21 19:01] LABS: ALB/GLOB RATIO 1.2 (1.1-1.8); ALBUMIN 4.2 g/dL (3.0-4.8); CALCIUM 9.4 mg/dL (8.4-10.5)
--- NOTE | 2018-10-21 19:16 | PN ---
DATE: 10/21/2018 REASON FOR CONSULTATION FOLLOWUP: History of coronary artery disease, history of CABG, history of PTCA, admitted with shortness of breath status post pacemaker, paroxysmal atrial fibrillation. SUBJECTIVE: The patient denies any chest pain but complains of shortness of breath, feels better since she came in. PHYSICAL EXAMINATION: GENERAL: Not in apparent distress.. VITAL SIGNS: Temperature 98.1, heart rate 78, blood pressure 149/54, height of the patient 5 feet 3 inches, weight of patient 211, body mass index 38 kg/m2. HEENT: PERRLA. Extraocular muscles intact.. NECK: Supple. No carotid bruits. No thyromegaly. CHEST: Clear to auscultation. Few basilar crackles noted. HEART: S1, S2 regular. ABDOMEN: Soft. EXTREMITIES: Clubbing and cyanosis, negative. 1+ pedal edema noted. LABORATORY DATA: WBC 7.5, hemoglobin 7.9, hematocrit 27.6, platelets count 155. Chemistries showed sodium 141, potassium 6.5, chloride of 103, carbon dioxide 30, anion gap of 14, BUN 73, creatinine 3. Random blood sugar 303. Troponin 0.5, 0.12. Total protein 7.1, albumin 3.9, album-globulin ratio 1.2. TSH 0.07. IMPRESSION: A 73-year-old female with past medical history significant for coronary artery disease status post coronary artery bypass grafting, history of percutaneous transluminal coronary angioplasty, history of chronic obstructive pulmonary disease, obesity, history of chronic kidney disease, type 2 diabetes, hypertension, hyperlipidemia, history of paroxysmal atrial fibrillation, admitted with shortness of breath and worsening renal insufficiency. History of coronary artery bypass grafting on 06/14/2014 at [facility] ([facility] history of non-ST elevated myocardial infarction 05/2015 status post percutaneous transluminal coronary angioplasty of right coronary artery; at that time cardiac catheterization revealed patent left internal mammary artery to left anterior descending artery, patent saphenous vein graft to diagonal 1, patent patent saphenous vein graft to obtuse marginal 1, occluded patent saphenous vein graft to right coronary artery and patient underwent percutaneous transluminal coronary angioplasty of right coronary artery because patient admitted with non-ST elevated myocardial infarction on 06/13/2015. Then the patient had a repeat catheterization done in 06/2016 with patent graft, pulmonary hypertension. Then the patient had a repeat catheterization in 06/23/2016 where the patient shows patent left internal mammary artery to left anterior descending artery. At that time the cardia catheterization revealed wiyot triple vessel disease, patent left internal mammary artery to left anterior descending artery, patent saphenous vein graft to diagonal 1 and sequential to obtuse marginal 1. Patent percutaneous transluminal coronary angioplasty site in proximal right coronary artery and patent saphenous vein graft to right posterior descending artery. History of renal insufficiency, atrial fibrillation status post pacemaker, mild to moderate mitral regurgitation by echocardiogram, moderate to severe tricuspid regurgitation and pulmonary hypertension on systolic pressure 83 by echocardiogram. MEDICAL TREATMENT RECOMMENDED: Since the patient came in with acute kidney injury, shortness of breath, so far only very borderline troponin positive, I believe, the patient could have gone for catheterization, but then in view of worsening renal insufficiency that will make the patient dialysis dependent and today the troponin is 0.04, initially it was 0.05, so we will hold of cardiac catheterization until the renal function is stabilizes or the troponin trends up. So far the troponin has not trended up and the patient is asymptomatic, no chest pain, discussed with the patient and discussed with the patient's daughter who is HISTORIAN [employer] ASSISTANT, name Yudy, telephone number [phone], updated the patient's condition and plan. We will now give her Kayexalate 30 g for hyperkalemia and nephrology followup with Dr. Ca. We will follow up with you and we will do T3, T4, TSH and we will follow up. Further recommendations depend upon the hospital course. We will T3, T4 to rule out any hyper thyroidism. Continue Eliquis low dose and monitor closely renal function. We will hold spironolactone in view of worsening hyperkalemia. Avoid nephrotoxic medications and any drug that causes hyperkalemia. Continue gentle diuretics, continue metoprolol, continue atorvastatin, continue Revatio for pulmonary hypertension and monitor renal function. If it gets worse we will also hold lisinopril and switch over to hydralazine. Thank you Thank you Dr. Ca, for providing us the opportunity in taking care of the patient, we will follow with you. Sapna Latif MD
[2018-10-21 21:09] LABS: ARTERIAL BLOOD GAS HCO3 31.2 mmol/L (21-28); ARTERIAL BLOOD GAS O2 CAPACITY 12.6 mL/dl (16-24); ARTERIAL BLOOD GAS O2 CONTENT 12.6 ML/dl (15-23); ARTERIAL BLOOD GAS PCO2 68 mm/Hg (35-45); ARTERIAL BLOOD GAS PH 7.27 (7.35-7.45); ARTERIAL BLOOD GAS TCO2 33.3 mmol.L (22-28)
--- NOTE | 2018-10-21 21:09 | CP.PCM.CON ---
<KamCristian - Last Filed: 10/22/18 01:27> History of Present Illness - History of Present Illness History of Present Illness: Cristian Humphrey, PGY1 ICU Consult Note for Dr. Loya Patient is a 73 yr old female with PMH COPD, diastolic CHF, moderate pulmonary hypertension, moderate mitral regurgitation, moderate tricuspid regurgitation, chronic kidney disease, CAD s/p open heart surgery, NIDDM who was admitted [place] [facility] [place] for respiratory distress and COPD exacerbation. She initially presented hypoxic with SaO2 76%. She was placed on BiPAP. Patient was stabilized on duonebs, solumedrol, singular, and sildenafil. On presentation, she was found to be in severe sepsis with CAP. She was also placed on antibiotics for treatment of PNA. Blood cx were positive for staph bacteremia, which as per ID was most likely a contamination. UA was positive for gram negative rods and sputum was positive for yeast. She is currently on cefepime and zithromax (Day 4 of 7) for antibiotic coverage as per ID recs. Cardiology is also on consult for CHF. Nephro is on consult for worsening renal function. Surgery is on consult for umbilical hernia. ICU was consulted for evaluation of shortness of breath. Patient was examined at bedside on telemetry. She was wearing BiPAP. She is awake, alert, oriented x3. She follows commands appropriately and moves all extremities. There is no change in mental status. She was having some shortness of breath which improved with BiPAP (12/5/12/40%). She did have some burning sensation in her throat. Otherwise, denied chest pain, n/v/d, abdominal pain, fever, chills. A full 12 point ROS was conducted and unremarkable except as stated above. PMD: Perveen Cardio: Salomon PMH:COPD, diastolic CHF, moderate pulmonary hypertension, moderate mitral regurgitation, moderate tricuspid regurgitation, chronic kidney disease, CAD s/p open heart surgery, NIDDM PSH: Hysterectomy, CABG, Pacemaker placement All: Shellfish Meds: see MAR Social: denies ETOH, illicit drugs, and tobacco. Former heavy smoker. FamHx: non-contributory Review of Systems - Review of Systems All systems: reviewed and no additional remarkable complaints except (as per HPI.) Past Patient History - Infectious Disease Hx of Infectious Diseases: None - Tetanus Immunizations Tetanus Immunization: Unknown - Past Medical History & Family History Past Medical History?: Yes - Past Social History Smoking Status: Never Smoked - CARDIAC Hx Cardiac Disorders: Yes (CAD, cardiac cath, NSTEMI, CABG) Hx Congestive Heart Failure: Yes (acute systolic CHF.) Hx Hypertension: Yes - PULMONARY Hx Chronic Obstructive Pulmonary Disease (COPD): Yes - NEUROLOGICAL Hx Neurological Disorder: No - HEENT Hx HEENT Problems: Yes (WEARS RX GLASSES) - RENAL Hx Renal Failure: Yes - ENDOCRINE/METABOLIC Hx Diabetes Mellitus Type 2: Yes (diabetic neuropathy) - HEMATOLOGICAL/ONCOLOGICAL Hx Blood Disorders: Yes Hx Anemia: Yes (IRON DEFICIENCY ANEMIA) - INTEGUMENTARY Hx Dermatological Problems: No - MUSCULOSKELETAL/RHEUMATOLOGICAL Hx Arthritis: Yes (B/L knees) - GASTROINTESTINAL Hx Gastrointestinal Disorders: Yes (THORACENTESIS WITH 17OO CC OF FLUID REMOVED 06-27-16) - GENITOURINARY/GYNECOLOGICAL Hx Genitourinary Disorders: Yes (HYSTERECTOMY) - PSYCHIATRIC Hx Psychophysiologic Disorder: Yes (SMOKED CIGARETTES PPD . QUIT 15 YRS AGO) Hx Anxiety: Yes Hx Substance Use: No - SURGICAL HISTORY Hx Surgeries: Yes Hx Cardiac Catheterization: Yes Hx Hysterectomy: Yes Hx Open Heart Surgery: Yes (CABG, pacemaker) - ANESTHESIA Hx Anesthesia: Yes Hx Anesthesia Reactions: No Hx Malignant Hyperthermia: No Meds Allergies/Adverse Reactions: Allergies Allergy/AdvReac Type Severity Reaction Status Date / Time shellfish Allergy Mild ITCHING Uncoded 10/18/18 16:55 - Medications Medications: Current Medications Acetaminophen (Tylenol 325mg Tab) 650 mg PO Q6H PRN PRN Reason: Fever >100.4 F Last Admin: 10/21/18 16:47 Dose: 650 mg Albuterol/Ipratropium (Duoneb 3 Mg/0.5 Mg (3 Ml) Ud) 3 ml IH Q2H PRN PRN Reason: Shortness of Breath Last Admin: 10/19/18 10:38 Dose: 3 ml Apixaban (Eliquis) 2.5 mg PO BID [facility]; Protocol Last Admin: 10/21/18 17:07 Dose: 2.5 mg Atorvastatin Calcium (Lipitor) 40 mg PO DAILY [facility] Last Admin: 10/21/18 09:05 Dose: 40 mg Azithromycin (Zithromax) 500 mg PO DAILY [facility]; Protocol Stop: 10/26/18 10:01 Last Admin: 03/04/19 09:06 Dose: 500 mg Folic Acid (Folic Acid) 1 mg PO DAILY [facility] Last Admin: 10/21/18 09:06 Dose: 1 mg Furosemide (Lasix) 40 mg IVP DAILY [facility] Last Admin: 10/20/18 09:25 Dose: 40 mg Hydralazine HCl (Apresoline) 25 mg PO BID [facility] Last Admin: 10/21/18 17:08 Dose: 25 mg Hydralazine HCl (Apresoline) 10 mg PO QID PRN PRN Reason: for sbp.160 Cefepime HCl (Maxipime 1gm) 1 gm in 100 mls @ 100 mls/hr IVPB Q12 [facility]; Protocol Last Admin: 10/21/18 09:03 Dose: 100 mls/hr Insulin Human Regular (Humulin R High) 0 units SC ACHS [facility]; Protocol Last Admin: 10/21/18 17:06 Dose: 7 units Levalbuterol HCl (Xopenex) 1.25 mg IH [id number] [facility] Last Admin: 10/21/18 19:31 Dose: 1.25 mg Lisinopril (Zestril) 20 mg PO DAILY [facility] Last Admin: 10/21/18 09:06 Dose: 20 mg Methylprednisolone (Solu-Medrol) 20 mg IV Q12 [facility] Last Admin: 10/21/18 09:09 Dose: 20 mg Metoprolol Tartrate (Lopressor) 50 mg PO BID [facility] Last Admin: 10/21/18 17:02 Dose: 50 mg Montelukast Sodium (Singulair) 10 mg PO HS [facility] Last Admin: 10/20/18 21:27 Dose: 10 mg Ondansetron HCl (Zofran Inj) 4 mg IVP Q6H PRN PRN Reason: Nausea/Vomiting Last Admin: 10/19/18 07:55 Dose: 4 mg Pantoprazole Sodium (Protonix Inj) 40 mg IVP DAILY [facility] Pregabalin (Lyrica) 75 mg PO BID [facility] Last Admin: 10/21/18 17:07 Dose: 75 mg Sildenafil Citrate (Revatio) 20 mg PO BID [facility] Last Admin: 10/21/18 17:02 Dose: 20 mg Physical Exam - Constitutional Appears: No Acute Distress - Head Exam Head Exam: ATRAUMATIC, NORMAL INSPECTION, NORMOCEPHALIC - Eye Exam Eye Exam: EOMI, PERRL Pupil Exam: NORMAL ACCOMODATION - ENT Exam ENT Exam: Mucous Membranes Moist, Normal Exam Additional comments: BiPAP in place. - Neck Exam Neck exam: Positive for: Normal Inspection - Respiratory Exam Respiratory Exam: Clear to Auscultation Bilateral. absent: Accessory Muscle Use, Chest Wall Tenderness, Rales, Rhonchi, Wheezes, Respiratory Distress, Stridor - Cardiovascular Exam Cardiovascular Exam: REGULAR RHYTHM, +S1, +S2, Systolic Murmur (Mitral regurg and tricuspid regurg. ) - GI/Abdominal Exam GI & Abdominal Exam: Normal Bowel Sounds, Soft. absent: Guarding, Pulsatile Mass, Rebound, Tenderness Additional comments: 2cm reducible umbilical hernia. - Extremities Exam Extremities exam: Positive for: normal inspection, pedal pulses present. Negative for: calf tenderness, tenderness - Back Exam Back exam: NORMAL INSPECTION - Neurological Exam Neurological exam: Alert, CN II-XII Intact, Oriented x3 - Skin Skin Exam: Dry, Intact, Normal Color, Warm Results - Vital Signs Recent Vital Signs: Last Vital Signs Temp 98.8 F 10/21/18 17:41 Pulse 70 10/21/18 19:19 Resp 18 10/21/18 17:41 BP 194/80 H 10/21/18 20:16 Pulse Ox 97 10/21/18 06:00 - Labs Result Diagrams: 10/21/18 06:00 10/21/18 18:27 Labs: Laboratory Results - last 24 hr 10/19/18 10/21/18 10/21/18 07:00 06:00 06:00 WBC 7.5 RBC 2.89 L Hgb 7.9 L Hct 27.6 L MCV 95.5 MCH 27.3 MCHC 28.6 L RDW 16.8 H Plt Count 155 MPV 12.0 H Neut % (Auto) 88.8 H Lymph % (Auto) 4.8 L Glascock % (Auto) 6.4 H Eos % (Auto) 0.0 L Baso % (Auto) 0.0 Lymph # (Auto) 0.4 L Glascock # (Auto) 0.5 Eos # (Auto) 0.0 Baso # (Auto) 0.00 Absolute Neuts (auto) 6.64 H PT INR Sodium 141 Potassium 6.5 H* D Chloride 103 Carbon Dioxide 30 Anion Gap 14 BUN 76 H Creatinine 3.0 H Est GFR ( Amer) 18 Est GFR (Non-Af Amer) 15 Random Glucose 303 H* Hemoglobin A1c Calcium 8.9 Phosphorus 4.4 Magnesium 2.4 H Iron TIBC % Saturation Ferritin Total Bilirubin 0.5 AST 20 ALT 21 Alkaline Phosphatase 88 Lactate Dehydrogenase 540 Total Creatine Kinase 65 Troponin I 0.04 D Total Protein 7.1 Albumin 3.9 Globulin 3.3 Albumin/Globulin Ratio 1.2 Triglycerides 158 Cholesterol 115 L LDL Cholesterol Direct 50 HDL Cholesterol 38 TSH 3rd Generation Proteinase 3 (PR3) <1.0 Myeloperoxidase Ab <1.0 Blood Type Antibody Screen Crossmatch BBK History Checked 10/21/18 10/21/18 10/21/18 06:00 06:00 06:00 WBC RBC Hgb Hct MCV MCH MCHC RDW Plt Count MPV Neut % (Auto) Lymph % (Auto) Glascock % (Auto) Eos % (Auto) Baso % (Auto) Lymph # (Auto) Glascock # (Auto) Eos # (Auto) Baso # (Auto) Absolute Neuts (auto) PT 16.5 H INR 1.46 Sodium Potassium Chloride Carbon Dioxide Anion Gap BUN Creatinine Est GFR ( Amer) Est GFR (Non-Af Amer) Random Glucose Hemoglobin A1c 6.2 Calcium Phosphorus Magnesium Iron TIBC % Saturation Ferritin Total Bilirubin AST ALT Alkaline Phosphatase Lactate Dehydrogenase Total Creatine Kinase Troponin I Total Protein Albumin Globulin Albumin/Globulin Ratio Triglycerides Cholesterol LDL Cholesterol Direct HDL Cholesterol TSH 3rd Generation 0.07 L Proteinase 3 (PR3) Myeloperoxidase Ab Blood Type Antibody Screen Crossmatch BBK History Checked 10/21/18 10/21/18 10/21/18 11:26 11:26 12:00 WBC RBC Hgb Hct MCV MCH MCHC RDW Plt Count MPV Neut % (Auto) Lymph % (Auto) Glascock % (Auto) Eos % (Auto) Baso % (Auto) Lymph # (Auto) Glascock # (Auto) Eos # (Auto) Baso # (Auto) Absolute Neuts (auto) PT INR Sodium Potassium Chloride Carbon Dioxide Anion Gap BUN Creatinine Est GFR ( Amer) Est GFR (Non-Af Amer) Random Glucose Hemoglobin A1c Calcium Phosphorus Magnesium Iron 22 L TIBC 317 % Saturation 7 L Ferritin 33.1 Total Bilirubin AST ALT Alkaline Phosphatase Lactate Dehydrogenase Total Creatine Kinase Troponin I Total Protein Albumin Globulin Albumin/Globulin Ratio Triglycerides Cholesterol LDL Cholesterol Direct HDL Cholesterol TSH 3rd Generation Proteinase 3 (PR3) Myeloperoxidase Ab Blood Type O POSITIVE Antibody Screen Negative Crossmatch See Detail BBK History Checked Patient has bt 10/21/18 18:27 WBC RBC Hgb Hct MCV MCH MCHC RDW Plt Count MPV Neut % (Auto) Lymph % (Auto) Glascock % (Auto) Eos % (Auto) Baso % (Auto) Lymph # (Auto) Glascock # (Auto) Eos # (Auto) Baso # (Auto) Absolute Neuts (auto) PT INR Sodium 140 Potassium 6.0 H* Chloride 102 Carbon Dioxide 31 Anion Gap 13 BUN 80 H Creatinine 3.0 H Est GFR ( Amer) 18 Est GFR (Non-Af Amer) 15 Random Glucose 315 H* Hemoglobin A1c Calcium 9.4 Phosphorus Magnesium Iron TIBC % Saturation Ferritin Total Bilirubin 0.3 AST 18 ALT 22 Alkaline Phosphatase 99 Lactate Dehydrogenase Total Creatine Kinase Troponin I Total Protein 7.7 Albumin 4.2 Globulin 3.5 Albumin/Globulin Ratio 1.2 Triglycerides Cholesterol LDL Cholesterol Direct HDL Cholesterol TSH 3rd Generation Proteinase 3 (PR3) Myeloperoxidase Ab Blood Type Antibody Screen Crossmatch BBK History Checked Assessment & Plan - Assessment and Plan (Free Text) Assessment: Patient is a 73 yr old female with PMH COPD, diastolic CHF, moderate pulmonary hypertension, moderate mitral regurgitation, moderate tricuspid regurgitation, chronic kidney disease, CAD s/p open heart surgery, NIDDM who was admitted [place] [facility] [place] for respiratory distress and COPD exacerbation. ICU was consulted for evaluation of shortness of breath on 10/21. Plan: -Continue with BiPAP -ABG stat ordered --> still indicates hypercapnia (patient's baseline CO2 is high, 60s); adjusted IPAP and RR settings on BIPAP -will f/u repeat ABG in morning -continue to monitor patient's mental status -Switched to Protonix 40mg IVP -Maintain SaO2 > 90% -Recommend to follow up on stool occult blood test given Hgb is 7.9 (decreased from baseline), however patient is not overtly bleeding. Transfuse as needed if Hgb drops < 7.0 -Continue with current level of management and care. Vital signs are stable. Patient does not meet admission criteria to the ICU at this time. Case was discussed and reviewed with Attending Physician, Dr. Loya. <Timmy Loya - Last Filed: 10/22/18 06:44> Meds - Medications Medications: Current Medications Acetaminophen (Tylenol 325mg Tab) 650 mg PO Q6H PRN PRN Reason: Fever >100.4 F Last Admin: 10/21/18 16:47 Dose: 650 mg Albuterol/Ipratropium (Duoneb 3 Mg/0.5 Mg (3 Ml) Ud) 3 ml IH Q2H PRN PRN Reason: Shortness of Breath Last Admin: 10/19/18 10:38 Dose: 3 ml Apixaban (Eliquis) 2.5 mg PO BID [facility]; Protocol Last Admin: 10/21/18 17:07 Dose: 2.5 mg Atorvastatin Calcium (Lipitor) 40 mg PO DAILY [facility] Last Admin: 10/21/18 09:05 Dose: 40 mg Azithromycin (Zithromax) 500 mg PO DAILY [facility]; Protocol Stop: 10/26/18 10:01 Last Admin: 10/21/18 09:06 Dose: 500 mg Folic Acid (Folic Acid) 1 mg PO DAILY [facility] Last Admin: 10/21/18 09:06 Dose: 1 mg Furosemide (Lasix) 40 mg IVP DAILY [facility] Last Admin: 10/20/18 09:25 Dose: 40 mg Hydralazine HCl (Apresoline) 25 mg PO BID [facility] Last Admin: 10/21/18 17:08 Dose: 25 mg Hydralazine HCl (Apresoline) 10 mg PO QID PRN PRN Reason: for sbp.160 Last Admin: 10/22/18 00:06 Dose: 10 mg Cefepime HCl (Maxipime 1gm) 1 gm in 100 mls @ 100 mls/hr IVPB Q12 [facility]; Protocol Last Admin: 10/21/18 23:36 Dose: 100 mls/hr Insulin Human Regular (Humulin R High) 0 units SC ACHS [facility]; Protocol Last Admin: 10/21/18 22:40 Dose: Not Given Levalbuterol HCl (Xopenex) 1.25 mg IH [id number] [facility] Last Admin: 10/22/18 01:27 Dose: 1.25 mg Lisinopril (Zestril) 20 mg PO DAILY [facility] Last Admin: 10/21/18 09:06 Dose: 20 mg Methylprednisolone (Solu-Medrol) 20 mg IV Q12 [facility] Last Admin: 10/21/18 22:22 Dose: 20 mg Metoprolol Tartrate (Lopressor) 50 mg PO BID [facility] Last Admin: 10/21/18 17:02 Dose: 50 mg Montelukast Sodium (Singulair) 10 mg PO HS [facility] Last Admin: 10/21/18 22:23 Dose: 10 mg Ondansetron HCl (Zofran Inj) 4 mg IVP Q6H PRN PRN Reason: Nausea/Vomiting Last Admin: 10/19/18 07:55 Dose: 4 mg Pantoprazole Sodium (Protonix Inj) 40 mg IVP DAILY [facility] Last Admin: 10/21/18 22:23 Dose: 40 mg Pregabalin (Lyrica) 75 mg PO BID [facility] Last Admin: 10/21/18 17:07 Dose: 75 mg Sildenafil Citrate (Revatio) 20 mg PO BID [facility] Last Admin: 10/21/18 17:02 Dose: 20 mg Results - Vital Signs Recent Vital Signs: Last Vital Signs Temp 97.3 F L 10/22/18 00:01 Pulse 63 10/22/18 02:10 Resp 18 10/22/18 00:01 BP 182/81 H 10/22/18 02:10 Pulse Ox 99 10/22/18 00:01 - Labs Result Diagrams: 10/21/18 06:00 10/21/18 18:27 Labs: Laboratory Results - last 24 hr 10/19/18 10/21/18 10/21/18 07:00 06:00 06:00 WBC 7.5 RBC 2.89 L Hgb 7.9 L Hct 27.6 L MCV 95.5 MCH 27.3 MCHC 28.6 L RDW 16.8 H Plt Count 155 MPV 12.0 H Neut % (Auto) 88.8 H Lymph % (Auto) 4.8 L Glascock % (Auto) 6.4 H Eos % (Auto) 0.0 L Baso % (Auto) 0.0 Lymph # (Auto) 0.4 L Glascock # (Auto) 0.5 Eos # (Auto) 0.0 Baso # (Auto) 0.00 Absolute Neuts (auto) 6.64 H PT INR pCO2 pO2 HCO3 ABG pH ABG Total CO2 ABG O2 Saturation ABG O2 Content ABG Base Excess ABG Hemoglobin ABG Carboxyhemoglobin POC ABG HHb (Measured) ABG Methemoglobin ABG O2 Capacity Hgb O2 Saturation FiO2 Crit Value Called To Crit Value Called By Blood Gas Notified Time Sodium 141 Potassium 6.5 H* D Chloride 103 Carbon Dioxide 30 Anion Gap 14 BUN 76 H Creatinine 3.0 H Est GFR ( Amer) 18 Est GFR (Non-Af Amer) 15 Random Glucose 303 H* Hemoglobin A1c Calcium 8.9 Phosphorus 4.4 Magnesium 2.4 H Iron TIBC % Saturation Ferritin Total Bilirubin 0.5 AST 20 ALT 21 Alkaline Phosphatase 88 Lactate Dehydrogenase 540 Total Creatine Kinase 65 Troponin I 0.04 D Total Protein 7.1 Albumin 3.9 Globulin 3.3 Albumin/Globulin Ratio 1.2 Triglycerides 158 Cholesterol 115 L LDL Cholesterol Direct 50 HDL Cholesterol 38 TSH 3rd Generation Stool Occult Blood Proteinase 3 (PR3) <1.0 Myeloperoxidase Ab <1.0 Blood Type Antibody Screen Crossmatch BBK History Checked 10/21/18 10/21/18 10/21/18 06:00 06:00 06:00 WBC RBC Hgb Hct MCV MCH MCHC RDW Plt Count MPV Neut % (Auto) Lymph % (Auto) Glascock % (Auto) Eos % (Auto) Baso % (Auto) Lymph # (Auto) Glascock # (Auto) Eos # (Auto) Baso # (Auto) Absolute Neuts (auto) PT 16.5 H INR 1.46 pCO2 pO2 HCO3 ABG pH ABG Total CO2 ABG O2 Saturation ABG O2 Content ABG Base Excess ABG Hemoglobin ABG Carboxyhemoglobin POC ABG HHb (Measured) ABG Methemoglobin ABG O2 Capacity Hgb O2 Saturation FiO2 Crit Value Called To Crit Value Called By Blood Gas Notified Time Sodium Potassium Chloride Carbon Dioxide Anion Gap BUN Creatinine Est GFR ( Amer) Est GFR (Non-Af Amer) Random Glucose Hemoglobin A1c 6.2 Calcium Phosphorus Magnesium Iron TIBC % Saturation Ferritin Total Bilirubin AST ALT Alkaline Phosphatase Lactate Dehydrogenase Total Creatine Kinase Troponin I Total Protein Albumin Globulin Albumin/Globulin Ratio Triglycerides Cholesterol LDL Cholesterol Direct HDL Cholesterol TSH 3rd Generation 0.07 L Stool Occult Blood Proteinase 3 (PR3) Myeloperoxidase Ab Blood Type Antibody Screen Crossmatch BBK History Checked 10/21/18 10/21/18 10/21/18 11:26 11:26 12:00 WBC RBC Hgb Hct MCV MCH MCHC RDW Plt Count MPV Neut % (Auto) Lymph % (Auto) Glascock % (Auto) Eos % (Auto) Baso % (Auto) Lymph # (Auto) Glascock # (Auto) Eos # (Auto) Baso # (Auto) Absolute Neuts (auto) PT INR pCO2 pO2 HCO3 ABG pH ABG Total CO2 ABG O2 Saturation ABG O2 Content ABG Base Excess ABG Hemoglobin ABG Carboxyhemoglobin POC ABG HHb (Measured) ABG Methemoglobin ABG O2 Capacity Hgb O2 Saturation FiO2 Crit Value Called To Crit Value Called By Blood Gas Notified Time Sodium Potassium Chloride Carbon Dioxide Anion Gap BUN Creatinine Est GFR ( Amer) Est GFR (Non-Af Amer) Random Glucose Hemoglobin A1c Calcium Phosphorus Magnesium Iron 22 L TIBC 317 % Saturation 7 L Ferritin 33.1 Total Bilirubin AST ALT Alkaline Phosphatase Lactate Dehydrogenase Total Creatine Kinase Troponin I Total Protein Albumin Globulin Albumin/Globulin Ratio Triglycerides Cholesterol LDL Cholesterol Direct HDL Cholesterol TSH 3rd Generation Stool Occult Blood Proteinase 3 (PR3) Myeloperoxidase Ab Blood Type O POSITIVE Antibody Screen Negative Crossmatch See Detail BBK History Checked Patient has bt 10/21/18 10/21/18 10/21/18 18:27 20:43 21:00 WBC RBC Hgb Hct MCV MCH MCHC RDW Plt Count MPV Neut % (Auto) Lymph % (Auto) Glascock % (Auto) Eos % (Auto) Baso % (Auto) Lymph # (Auto) Glascock # (Auto) Eos # (Auto) Baso # (Auto) Absolute Neuts (auto) PT INR pCO2 68 H pO2 166.0 H HCO3 31.2 H ABG pH 7.27 L ABG Total CO2 33.3 H ABG O2 Saturation 100.0 H ABG O2 Content 12.6 L ABG Base Excess 3.3 H ABG Hemoglobin 9.0 L ABG Carboxyhemoglobin 2.4 H POC ABG HHb (Measured) 0 ABG Methemoglobin 1.2 ABG O2 Capacity 12.6 L Hgb O2 Saturation 96.4 FiO2 40.0 Crit Value Called To Robbie hilton rn Crit Value Called By Ana [employer] attendant Blood Gas Notified Time 2107 Sodium 140 Potassium 6.0 H* Chloride 102 Carbon Dioxide 31 Anion Gap 13 BUN 80 H Creatinine 3.0 H Est GFR ( Amer) 18 Est GFR (Non-Af Amer) 15 Random Glucose 315 H* Hemoglobin A1c Calcium 9.4 Phosphorus Magnesium Iron TIBC % Saturation Ferritin Total Bilirubin 0.3 AST 18 ALT 22 Alkaline Phosphatase 99 Lactate Dehydrogenase Total Creatine Kinase Troponin I Total Protein 7.7 Albumin 4.2 Globulin 3.5 Albumin/Globulin Ratio 1.2 Triglycerides Cholesterol LDL Cholesterol Direct HDL Cholesterol TSH 3rd Generation Stool Occult Blood Positive H Proteinase 3 (PR3) Myeloperoxidase Ab Blood Type Antibody Screen Crossmatch BBK History Checked 10/22/18 10/22/18 00:05 05:44 WBC RBC Hgb Hct MCV MCH MCHC RDW Plt Count MPV Neut % (Auto) Lymph % (Auto) Glascock % (Auto) Eos % (Auto) Baso % (Auto) Lymph # (Auto) Glascock # (Auto) Eos # (Auto) Baso # (Auto) Absolute Neuts (auto) PT INR pCO2 71 H* 75 H* pO2 163.0 H 158.0 H HCO3 31.1 H 32.9 H ABG pH 7.25 L 7.25 L ABG Total CO2 33.3 H 35.2 H ABG O2 Saturation 100.1 H 100.2 H ABG O2 Content 13.4 L 13.2 L ABG Base Excess 2.7 4.3 H ABG Hemoglobin 9.6 L 9.4 L ABG Carboxyhemoglobin 2.5 H 2.4 H POC ABG HHb (Measured) -0.1 L -0.2 L ABG Methemoglobin 1.1 0.9 ABG O2 Capacity 13.4 L 13.2 L Hgb O2 Saturation 96.5 96.9 FiO2 40.0 40.0 Crit Value Called To Robbie hilton rn Robbie hilton rn Crit Value Called By Ana [employer] attendant Ana [employer] attendant Blood Gas Notified Time 25 550 Sodium Potassium Chloride Carbon Dioxide Anion Gap BUN Creatinine Est GFR ( Amer) Est GFR (Non-Af Amer) Random Glucose Hemoglobin A1c Calcium Phosphorus Magnesium Iron TIBC % Saturation Ferritin Total Bilirubin AST ALT Alkaline Phosphatase Lactate Dehydrogenase Total Creatine Kinase Troponin I Total Protein Albumin Globulin Albumin/Globulin Ratio Triglycerides Cholesterol LDL Cholesterol Direct HDL Cholesterol TSH 3rd Generation Stool Occult Blood Proteinase 3 (PR3) Myeloperoxidase Ab Blood Type Antibody Screen Crossmatch BBK History Checked Attending/Attestation - Attestation I have personally seen and examined this patient.: Yes I have fully participated in the care of the patient.: Yes I have reviewed all pertinent clinical information: Yes Notes (Text): 10/22/18 06:43 Seen and examined with resident. Comfortable on Bipap. + FOBT. PCP to decide on continuing or stopping Eliquis. Bipap setting adjusted. At this time, pt. can be monitored on Tele.
--- NOTE | 2018-10-21 23:00 | CON ---
DATE: 10/21/2018 REASON FOR CONSULTATION: Hyperkalemia, acute kidney injury superimposed and chronic kidney disease, stage IV. HISTORY OF PRESENT ILLNESS: A 73-year-old lady known to me from outpatient followup. Patient was admitted on 10/18/2018 with complaints of shortness of breath, dyspnea on exertion. Patient was found to have decompensated congestive heart failure. Patient was treated with IV Lasix. Patient was also on DANIEL inhibitor, Aldactone. At the time of presentation, her BUN was 37, creatinine was 2.1. This morning, her potassium was 6.5, BUN was 76, and creatinine was 3.0. Hence, consultation was requested for acute kidney injury. PAST MEDICAL/SURGICAL HISTORY: Hypertension, CHF, COPD, pulmonary hypertension, CAD, history of CABG, NIDDM, diabetic neuropathy, chronic kidney disease stage IV, proteinuria, diastolic heart failure, MR, TR, and hysterectomy. FAMILY HISTORY: Hypertension. SOCIAL HISTORY: Ex-smoker. No alcohol use. No IV drug abuse. ALLERGIES; SHELLFISH. MEDICATIONS AT HOME: Lisinopril 20, Lasix 40 b.i.d., Revatio, Eliquis, Aldactone 25 daily, Lyrica 75 b.i.d., Zaroxolyn 5, and calcitriol 0.25. REVIEW OF SYSTEMS: Shortness of breath, dyspnea on exertion, decreased urine output. PHYSICAL EXAMINATION: GENERAL: An elderly lady lying in bed in [id number] respiratory distress. VITAL SIGNS: Blood pressure 149/54, heart rate 78, respiratory rate 20, temperature 98.9. HEENT: Normocephalic, atraumatic, positive pallor. NECK: Supple. No JVD. LUNGS: Bilateral equal air entry, bilateral equal expansion, bilateral rhonchi. CARDIAC: S1 and S2. Regular rate and rhythm. Positive murmur. No rub. ABDOMEN: Obese, distended, and soft. Bowel sounds present. EXTREMITIES: No lower extremity edema. INTAKE AND OUTPUT: 1600/600. LABORATORY DATA: WBC 7.5, hemoglobin 7.9, hematocrit 27.6, and platelets 155. Sodium 141, potassium 6.5, chloride 103, CO2 of 30, BUN 76, creatinine 3.0, glucose 363, A1c is 6.2, calcium 8.9, phosphorous 4.4, magnesium 2.4, iron saturation 7%, iron 22, ferritin 33, albumin 4.2. Urinalysis yellow clear, pH is 6.0, specific gravity 1.025, protein 100, glucose 100, and leukocyte esterase moderate. Urine culture gram positive kylah. Blood culture coagulase negative Staph. Sputum culture yeast. CT of the chest done on 10/18/2018 showing ground glass nodular opacity suspected to reflect pneumonia within the right middle lobe and bilateral lower lobes, emphysema, 2.2 cm right adrenal mass. CURRENT MEDICATIONS: Hydralazine 25 mg b.i.d., Eliquis 2.5 mg b.i.d, folic acid 1 mg, Lasix 40 mg t.i.d. daily put on hold today, Lipitor 40 mg, Lopressor 50 mg b.i.d. Lyrica 75 mg b.i.d., cefepime 1 g every 12, Revatio 20 mg b.i.d. Singulair, Solu-Medrol 20 mg IV every 12 hours, Tylenol, Xopenex, Zestril, Zithromax, and Zofran. ASSESSMENT: 1. Acute kidney injury, superimposed and chronic kidney disease, stage IV. 2. Hyperkalemia secondary to acute kidney injury. 3. Acute and chronic anemia, ?gastrointestinal blood loss which can explain the acute kidney injury and the hyperkalemia. 4. Oct-hzdlpeb-xwnnavnbi diabetes mellitus. 5. Congestive heart failure/cardiomyopathy/coronary artery disease/coronary artery bypass graft. 6. Bilateral pneumonia. PLAN: 1. Long discussion with the daughter and patient, will attempt to lower potassium by medical measures if it does not respond may need dialysis. 2. Patient appears to be somewhat uremic. She does have the asterixis. 3. Agree with calcium gluconate IV, insulin IV, Kayexalate, albuterol 10 mg via nebulizer. 4. Monitor BNP every 12 hours. 5. Monitor urine output. 6. Agree with holding Zestril and Aldactone. 7. Check urine eosinophils. 8. dose all antibiotics for creatinine clearance about 10 to 30 mL per minute. 9. Avoid nephrotoxins. 10. Consider GI evaluation. Thank you for the courtesy of this consultation. We will follow the patient closely with you. Doris Antunez MD [facility] # [id number]
--- NOTE | 2018-10-21 23:45 | PN ---
DATE: 10/21/2018 SUBJECTIVE: The patient is 73-year-old. Seen and examined. She was found to be very agitated this morning. She was given Xanax. When I saw the patient, she was very sleepy but arousable. She has mild shortness of breath. PHYSICAL EXAMINATION: VITAL SIGNS: She is afebrile, pulse 63, respirations 18, blood pressure 165/68. LUNGS: Bilateral diffuse decreased breath sounds. Few expiratory rhonchi. HEART: S1 and S2 audible. ABDOMEN: Soft, nontender. No rebound. No guarding. NEUROLOGIC: She is sleepy, but arousable. EXTREMITIES: Bilateral leg, no edema. LABORATORY DATA: WBC 7.5, hemoglobin 7.9, hematocrit 27.6, platelets 155. PT 16.5. INR 1.46. Chemistry, sodium 140, potassium 6, chloride 102, CO2 of 31, BUN 80, creatinine 3. Blood sugar of 315. Iron is 22. Her urine has gram-negative rods, identification to follow. She has Staphylococcus aureus and coag-negative Staph in her blood cultures. ASSESSMENT AND PLAN: 1. Chronic obstructive pulmonary disease exacerbation. 2. Congestive heart failure exacerbation. 3. Acute on chronic renal failure. 4. Hyperkalemia. PLAN: I will order for stool for Hemoccult. Get GI evaluation. Give her dose of calcium gluconate. Allowed her for one Kayexalate enema. We will follow her electrolytes in a.m. Laurel Schultz MD
[2018-10-22 00:23] LABS: ARTERIAL BLOOD GAS HCO3 31.1 mmol/L (21-28); ARTERIAL BLOOD GAS HEMOGLOBIN 9.6 g/dL (11.7-17.4); ARTERIAL BLOOD GAS O2 CAPACITY 13.4 mL/dl (16-24); ARTERIAL BLOOD GAS O2 CONTENT 13.4 ML/dl (15-23); ARTERIAL BLOOD GAS O2 SAT 100.1 % (95-98); ARTERIAL BLOOD GAS PCO2 71 mm/Hg (35-45); ARTERIAL BLOOD GAS PH 7.25 (7.35-7.45); ARTERIAL BLOOD GAS TCO2 33.3 mmol.L (22-28)
[2018-10-22] MEDS: Levalbuterol 1.25 MG/3 ML Inhal Soln UD IH SCH ×4 (01:27→19:54)
[2018-10-22 05:50] LABS: ARTERIAL BLOOD GAS HCO3 32.9 mmol/L (21-28); ARTERIAL BLOOD GAS HEMOGLOBIN 9.4 g/dL (11.7-17.4); ARTERIAL BLOOD GAS O2 CAPACITY 13.2 mL/dl (16-24); ARTERIAL BLOOD GAS O2 CONTENT 13.2 ML/dl (15-23); ARTERIAL BLOOD GAS O2 SAT 100.2 % (95-98); ARTERIAL BLOOD GAS PCO2 75 mm/Hg (35-45); ARTERIAL BLOOD GAS PH 7.25 (7.35-7.45); ARTERIAL BLOOD GAS TCO2 35.2 mmol.L (22-28)
[2018-10-22 07:21] LABS: CREATININE,RANDOM URINE 75 mg/dL
[2018-10-22] MEDS: Budesonide 0.5 mg/2 ml Inhal Susp UD IH SCH ×2 (07:41→19:54)
[2018-10-22 07:53] LABS: T3 UPTAKE 35.4 % (23.0-41.0)
--- NOTE | 2018-10-22 07:59 | CON ---
DATE OF CONSULTATION: 10/22/2018 PULMONARY CONSULTATION REASON FOR CONSULTATION: Chronic obstructive pulmonary disease. REFERRING PHYSICIAN: Dr. Schultz SOURCE OF HISTORY: History is obtained via extensive discussion with the nurse and daughter. I have also reviewed the chart at length. The patient does not appear to be an adequate historian. HISTORY OF PRESENT ILLNESS: The patient is a 73-year-old female, with past medical history significant for chronic obstructive pulmonary disease, congestive heart failure, paroxysmal atrial fibrillation, coronary artery disease, status post open heart surgery, who presented to [facility] - originally on 10/18/2018 - with a 2-day history of worsening shortness of breath at rest, dyspnea on exertion, cough, and minimal sputum production. There is no history of chest pain, coughing up of blood, or chest pain - brought on with deep respirations. The patient did present with fevers and chills. The fevers have since resolved. No history of infectious exposure. No history of night sweats, weight loss, or appetite change prior to the above events. No history of calf pains. No history of syncope or diaphoresis. No history of recent travel or trauma. REVIEW OF SYSTEMS: No history of nausea, vomiting or diarrhea. No acute urinary symptoms. No new musculoskeletal complaints. Rest of the review of systems is negative. ALLERGIES: SHELLFISH. SOCIAL HISTORY: Positive for former tobacco usage. No alcohol. FAMILY HISTORY: No inheritable diseases. MEDICATIONS: Home medications include Feosol, Rocaltrol, Zaroxolyn, Lyrica, ProAir, Ventolin, Aldactone, Lipitor, Eliquis, Revatio, Lasix, Singulair, magnesium, Lopressor, lisinopril. PHYSICAL EXAMINATION: GENERAL: The patient is not short of breath at rest this morning. She is not using accessory muscles for breathing. She is currently on BiPAP. VITAL SIGNS: Temperature is 97.3, pulse is 70, respirations 18/20, blood pressure 182/81. Oxygen saturation on BiPAP is 99%. HEENT: Normocephalic, atraumatic. No JVD. CARDIOVASCULAR: Systolic ejection murmur at the lower left sternal border. Positive S3 gallop. LUNGS: Minimal crackles at both bases. Minimal bilateral rhonchi. No wheezing. EXTREMITIES: Positive for edema. No cyanosis. No clubbing. Calves are nontender to palpation. GASTROINTESTINAL: Abdomen is soft, nontender and nondistended. Bowel sounds are positive. SKIN: No acute rash. NEUROLOGIC: Exam limited at the present time. PERTINENT LABORATORY DATA: CT scan of the chest was done on 10/18/2018 and reviewed. There is a patchy right lower lobe infiltrate noted. There are emphysematous changes also noted. There is no significant lymphadenopathy. CBC: White count 7.5K, hemoglobin 7.9, hematocrit 27.6, platelets of 155,000. Complete metabolic profile: Potassium 6, BUN 80, creatinine 3, glucose 315. Rest of the metabolic profile is within normal limits. Arterial blood gas was done on /E-02/01,40% oxygen. Results are: PH 7.25, pCO2 75, pO2 of 158. B-type natriuretic peptide 3960. Peak troponin 0.12. IMPRESSION: 1. Respiratory failure. 2. Advanced chronic obstructive pulmonary disease. 3. Right lower lobe pneumonia. 4. Congestive heart failure. 5. Rule out myocardial infarction. 6. Paroxysmal atrial fibrillation. 7. Renal insufficiency. PLAN: Again, I did discuss the case with the nurse and the patient's daughter at length. I have also reviewed the chart at length. The patient presented to [facility] - originally on 10/18/2018 - with a 2-day history of worsening pulmonary symptoms. On admission, the patient was febrile. She was thus admitted for additional evaluation. I did review the CT scan of the chest - done on 10/18/2018. On that CT scan, a patchy right lower lobe infiltrate is noted. I would continue with the antibiotic coverage as per Infectious Disease. Input by Dr. Malone is noted. Temperatures have fully resolved. The leukocytosis has also fully resolved. I have also reviewed the arterial blood gas. The arterial blood gas reveals a moderate respiratory acidosis with adequate oxygenation. BiPAP adjustments have been made. Repeat arterial blood gas has been ordered. On physical exam, only minimal bronchospasm is noted. I will continue the current nebulizer treatments and low-dose intravenous steroids for now. I will also add inhaled Pulmicort. In addition to the above, I will also order a stat repeat chest x-ray. The patient appears very guarded at this point in time. I did discuss the case with the ICU residents earlier this morning. The patient may in fact need transfer to the medical ICU. I will discuss the above with the ICU attending. I will discuss the above with the medical attending physician (Dr. Schultz). Additional pulmonary intervention will based on the above results, as well as the clinical status of the patient. Thank you very much for this pulmonary consultation. Bhupinder Chiang MD [facility]
[2018-10-22] MEDS: Insulin Reg-HIGH-Coverage SC SCH ×4 (08:29→21:23)
--- NOTE | 2018-10-22 08:45 | RAD ---
Date of service: 10/22/2018 HISTORY: follow up COMPARISON: 10/18/2018 FINDINGS: LUNGS: No active pulmonary disease. PLEURA: No significant pleural effusion identified, no pneumothorax apparent. CARDIOVASCULAR: There is atherosclerotic calcification of thoracic aortic arch. Permanent pacemaker. CABG. Normal heart size. No congestive change. OSSEOUS STRUCTURES: No significant abnormalities. VISUALIZED UPPER ABDOMEN: Normal. OTHER FINDINGS: None. IMPRESSION: No active disease.
[2018-10-22] MEDS: Cefepime 1gm in NS 100ml 1 GM/100 ML BAG IVPB SCH ×2 (09:39→21:22)
[2018-10-22] MEDS: MethylPREDNISolone 40 mg Vial IV SCH ×2 (09:39→21:22)
[2018-10-22] MEDS: Sildenafil 20 MG TAB PO SCH ×2 (09:40→18:53)
[2018-10-22 09:52] LABS: ARTERIAL BLOOD GAS HCO3 31.5 mmol/L (21-28); ARTERIAL BLOOD GAS HEMOGLOBIN 9.6 g/dL (11.7-17.4); ARTERIAL BLOOD GAS O2 CAPACITY 13.2 mL/dl (16-24); ARTERIAL BLOOD GAS O2 CONTENT 13.1 ML/dl (15-23); ARTERIAL BLOOD GAS O2 SAT 99.2 % (95-98); ARTERIAL BLOOD GAS PCO2 67 mm/Hg (35-45); ARTERIAL BLOOD GAS PH 7.28 (7.35-7.45); ARTERIAL BLOOD GAS TCO2 33.6 mmol.L (22-28)
[2018-10-22 10:43] LABS: BASO # 0.01 K/mm3 (0.0-2.0); BASO % 0.1 % (0.0-3.0); EOS # 0.1 (0.0-0.7); EOS % 0.5 % (1.5-5.0); HEMOGLOBIN 9.8 g/dL (12.0-16.0); LYMPH # 0.8 (1.2-3.4); LYMPH % 8.9 % (22.0-35.0); MEAN CELL VOLUME 93.3 fl (80.0-105.0); MEAN CORPUSCULAR HEMOGLOBIN 27.5 pg (25.0-35.0); MEAN CORPUSCULAR HGB CONC 29.4 g/dl (31.0-37.0); MONO # 0.4 (0.1-0.6); MONO % 4.5 % (1.0-6.0); RBC 3.57 10^6/uL (3.5-6.1); RED CELL DISTRIBUTION WIDTH 17.4 % (11.5-14.5)
[2018-10-22 10:46] LABS: WHITE BLOOD COUNT 9.5 10^3/uL (4.5-11.0)
[2018-10-22 11:47] LABS: PLATELET COUNT 175 10^3/uL (120.0-450.0)
--- NOTE | 2018-10-22 11:57 | CP.PCM.CON ---
History of Present Illness - History of Present Illness History of Present Illness: GI Consult note for Dr. Billie Castro, PGY-1 Pt seen/examined at bedside with attending physician. Pt's daughter at bedside, pt currently on Bipap for respiratory issues. History as per daughter. 73F w/multiple medical co-morbidities as listed below consulted for positive FOBT. Pt originally admitted for respiratory distress/COPD exacerbation, requiring Bipap. Pt evaluated and diagnosed with CAP, severe sepsis, currently on antibiotics. Pt currently without abdominal pain, N or V, changes to bowel or bladder habits. Denies ever having colonoscopy or EGD (pt previously declined scopes). Hgb 9.8 from 7.9. Iron studies with findings of iron deficiency anemia. PMH: COPD, diastolic CHF, moderate pulmonary HTN, moderate mitral regurgitation, moderate tricuspide regurgitation, CKD, CAD, DM PSH: CABG, hysterectomy, Pacemaker placement All: Shellfish SH: Denies ETOH, current tobacco (hx of) or illicit drug use PMD: Perveen Cardio: Salomon Review of Systems - Review of Systems All systems: reviewed and no additional remarkable complaints except - EENT Eyes: absent: Change in Vision Ears: absent: Dizziness Nose/Mouth/Throat: absent: Sore Throat - Cardiovascular Cardiovascular: absent: Chest Pain - Respiratory Respiratory: Dyspnea - Gastrointestinal Gastrointestinal: absent: Abdominal Pain, Nausea, Vomiting - Genitourinary Genitourinary: absent: Change in Urinary Stream - Integumentary Integumentary: absent: Bleeding Lesions - Neurological Neurological: absent: Dizziness Past Patient History - Infectious Disease Hx of Infectious Diseases: None - Tetanus Immunizations Tetanus Immunization: Unknown - Past Medical History & Family History Past Medical History?: Yes - Past Social History Smoking Status: Never Smoked - CARDIAC Hx Cardiac Disorders: Yes (CAD, cardiac cath, NSTEMI, CABG) Hx Congestive Heart Failure: Yes (acute systolic CHF.) Hx Hypertension: Yes - PULMONARY Hx Chronic Obstructive Pulmonary Disease (COPD): Yes - NEUROLOGICAL Hx Neurological Disorder: No - HEENT Hx HEENT Problems: Yes (WEARS RX GLASSES) - RENAL Hx Renal Failure: Yes - ENDOCRINE/METABOLIC Hx Diabetes Mellitus Type 2: Yes (diabetic neuropathy) - HEMATOLOGICAL/ONCOLOGICAL Hx Blood Disorders: Yes Hx Anemia: Yes (IRON DEFICIENCY ANEMIA) - INTEGUMENTARY Hx Dermatological Problems: No - MUSCULOSKELETAL/RHEUMATOLOGICAL Hx Arthritis: Yes (B/L knees) - GASTROINTESTINAL Hx Gastrointestinal Disorders: Yes (THORACENTESIS WITH 17OO CC OF FLUID REMOVED 06-27-16) - GENITOURINARY/GYNECOLOGICAL Hx Genitourinary Disorders: Yes (HYSTERECTOMY) - PSYCHIATRIC Hx Psychophysiologic Disorder: Yes (SMOKED CIGARETTES PPD . QUIT 15 YRS AGO) Hx Anxiety: Yes Hx Substance Use: No - SURGICAL HISTORY Hx Surgeries: Yes Hx Cardiac Catheterization: Yes Hx Hysterectomy: Yes Hx Open Heart Surgery: Yes (CABG, pacemaker) - ANESTHESIA Hx Anesthesia: Yes Hx Anesthesia Reactions: No Hx Malignant Hyperthermia: No Meds Allergies/Adverse Reactions: Allergies Allergy/AdvReac Type Severity Reaction Status Date / Time shellfish Allergy Mild ITCHING Uncoded 10/18/18 16:55 - Medications Medications: Current Medications Acetaminophen (Tylenol 325mg Tab) 650 mg PO Q6H PRN PRN Reason: Fever >100.4 F Last Admin: 10/21/18 16:47 Dose: 650 mg Albuterol/Ipratropium (Duoneb 3 Mg/0.5 Mg (3 Ml) Ud) 3 ml IH Q2H PRN PRN Reason: Shortness of Breath Last Admin: 10/19/18 10:38 Dose: 3 ml Apixaban (Eliquis) 2.5 mg PO BID COUNTS INCLUDE 234 BEDS AT THE [facility]; Protocol Last Admin: 10/21/18 17:07 Dose: 2.5 mg Atorvastatin Calcium (Lipitor) 40 mg PO DAILY COUNTS INCLUDE 234 BEDS AT THE [facility] Last Admin: 10/22/18 09:40 Dose: 40 mg Azithromycin (Zithromax) 500 mg PO DAILY COUNTS INCLUDE 234 BEDS AT THE [facility]; Protocol Stop: 10/26/18 10:01 Last Admin: 10/22/18 09:39 Dose: 500 mg Budesonide (Pulmicort Respules) 0.5 mg IH [id number] COUNTS INCLUDE 234 BEDS AT THE [facility] Last Admin: 10/22/18 07:41 Dose: 0.5 mg Folic Acid (Folic Acid) 1 mg PO DAILY COUNTS INCLUDE 234 BEDS AT THE [facility] Last Admin: 10/22/18 09:40 Dose: 1 mg Furosemide (Lasix) 40 mg IVP DAILY COUNTS INCLUDE 234 BEDS AT THE [facility] Last Admin: 10/20/18 09:25 Dose: 40 mg Hydralazine HCl (Apresoline) 10 mg PO QID PRN PRN Reason: for sbp.160 Last Admin: 10/22/18 00:06 Dose: 10 mg Hydralazine HCl (Apresoline) 50 mg PO BID COUNTS INCLUDE 234 BEDS AT THE [facility] Cefepime HCl (Maxipime 1gm) 1 gm in 100 mls @ 100 mls/hr IVPB Q12 COUNTS INCLUDE 234 BEDS AT THE [facility]; Protocol Last Admin: 10/22/18 09:39 Dose: 100 mls/hr Insulin Human Regular (Humulin R High) 0 units SC ACHS COUNTS INCLUDE 234 BEDS AT THE [facility]; Protocol Last Admin: 10/22/18 08:29 Dose: Not Given Levalbuterol HCl (Xopenex) 1.25 mg IH [id number] COUNTS INCLUDE 234 BEDS AT THE [facility] Last Admin: 10/22/18 07:42 Dose: 1.25 mg Methylprednisolone (Solu-Medrol) 20 mg IV Q12 COUNTS INCLUDE 234 BEDS AT THE [facility] Last Admin: 10/22/18 09:39 Dose: 20 mg Metoprolol Tartrate (Lopressor) 50 mg PO BID COUNTS INCLUDE 234 BEDS AT THE [facility] Last Admin: 10/22/18 09:40 Dose: 50 mg Montelukast Sodium (Singulair) 10 mg PO HS COUNTS INCLUDE 234 BEDS AT THE [facility] Last Admin: 10/21/18 22:23 Dose: 10 mg Ondansetron HCl (Zofran Inj) 4 mg IVP Q6H PRN PRN Reason: Nausea/Vomiting Last Admin: 10/19/18 07:55 Dose: 4 mg Pantoprazole Sodium (Protonix Inj) 40 mg IVP DAILY COUNTS INCLUDE 234 BEDS AT THE [facility] Last Admin: 10/22/18 09:39 Dose: 40 mg Pregabalin (Lyrica) 75 mg PO BID COUNTS INCLUDE 234 BEDS AT THE [facility] Last Admin: 10/22/18 09:39 Dose: 75 mg Sildenafil Citrate (Revatio) 20 mg PO BID COUNTS INCLUDE 234 BEDS AT THE [facility] Last Admin: 10/22/18 09:40 Dose: 20 mg Physical Exam - Constitutional Appears: Non-toxic, No Acute Distress - Head Exam Head Exam: ATRAUMATIC, NORMAL INSPECTION, NORMOCEPHALIC - Eye Exam Eye Exam: EOMI, Normal appearance - Respiratory Exam Respiratory Exam: Accessory Muscle Use (currently on bipap). absent: Respiratory Distress - Cardiovascular Exam Cardiovascular Exam: REGULAR RHYTHM, +S1, +S2 - GI/Abdominal Exam GI & Abdominal Exam: Soft. absent: Distended (obese), Firm, Guarding, Tenderness - Rectal Exam Rectal Exam: Deferred - Neurological Exam Neurological exam: Alert - Skin Skin Exam: Dry, Intact, Normal Color, Warm Results - Vital Signs Recent Vital Signs: Last Vital Signs Temp 97.3 F L 10/22/18 00:01 Pulse 62 10/22/18 09:55 Resp 18 10/22/18 00:01 BP 164/69 H 10/22/18 09:40 Pulse Ox 99 10/22/18 00:01 - Labs Result Diagrams: 10/22/18 10:00 10/21/18 18:27 Labs: Laboratory Results - last 24 hr 10/19/18 10/21/18 10/21/18 07:00 11:26 11:26 WBC RBC Hgb Hct MCV MCH MCHC RDW Plt Count Neut % (Auto) Lymph % (Auto) Young % (Auto) Eos % (Auto) Baso % (Auto) Lymph # (Auto) Young # (Auto) Eos # (Auto) Baso # (Auto) Absolute Neuts (auto) pCO2 pO2 HCO3 ABG pH ABG Total CO2 ABG O2 Saturation ABG O2 Content ABG Base Excess ABG Hemoglobin ABG Carboxyhemoglobin POC ABG HHb (Measured) ABG Methemoglobin ABG O2 Capacity Hgb O2 Saturation FiO2 Crit Value Called To Crit Value Called By Blood Gas Notified Time Sodium Potassium Chloride Carbon Dioxide Anion Gap BUN Creatinine Est GFR ( Amer) Est GFR (Non-Af Amer) Random Glucose Calcium Phosphorus Magnesium Iron 22 L TIBC 317 % Saturation 7 L Ferritin 33.1 Total Bilirubin AST ALT Alkaline Phosphatase NT-Pro-B Natriuret Pep Total Protein Albumin Globulin Albumin/Globulin Ratio Thyroxine (T4) T3 Uptake TSH 3rd Generation Urine Eosinophils Ur Random Creatinine Ur Random Sodium Stool Occult Blood Proteinase 3 (PR3) <1.0 Myeloperoxidase Ab <1.0 Blood Type Antibody Screen Crossmatch BBK History Checked 10/21/18 10/21/18 10/21/18 12:00 18:27 20:43 WBC RBC Hgb Hct MCV MCH MCHC RDW Plt Count Neut % (Auto) Lymph % (Auto) Young % (Auto) Eos % (Auto) Baso % (Auto) Lymph # (Auto) Young # (Auto) Eos # (Auto) Baso # (Auto) Absolute Neuts (auto) pCO2 pO2 HCO3 ABG pH ABG Total CO2 ABG O2 Saturation ABG O2 Content ABG Base Excess ABG Hemoglobin ABG Carboxyhemoglobin POC ABG HHb (Measured) ABG Methemoglobin ABG O2 Capacity Hgb O2 Saturation FiO2 Crit Value Called To Crit Value Called By Blood Gas Notified Time Sodium 140 Potassium 6.0 H* Chloride 102 Carbon Dioxide 31 Anion Gap 13 BUN 80 H Creatinine 3.0 H Est GFR ( Amer) 18 Est GFR (Non-Af Amer) 15 Random Glucose 315 H* Calcium 9.4 Phosphorus Magnesium Iron TIBC % Saturation Ferritin Total Bilirubin 0.3 AST 18 ALT 22 Alkaline Phosphatase 99 NT-Pro-B Natriuret Pep Total Protein 7.7 Albumin 4.2 Globulin 3.5 Albumin/Globulin Ratio 1.2 Thyroxine (T4) T3 Uptake TSH 3rd Generation Urine Eosinophils Ur Random Creatinine Ur Random Sodium Stool Occult Blood Positive H Proteinase 3 (PR3) Myeloperoxidase Ab Blood Type O POSITIVE Antibody Screen Negative Crossmatch See Detail BBK History Checked Patient has bt 10/21/18 10/22/18 10/22/18 21:00 00:05 05:16 WBC RBC Hgb Hct MCV MCH MCHC RDW Plt Count Neut % (Auto) Lymph % (Auto) Young % (Auto) Eos % (Auto) Baso % (Auto) Lymph # (Auto) Young # (Auto) Eos # (Auto) Baso # (Auto) Absolute Neuts (auto) pCO2 68 H 71 H* pO2 166.0 H 163.0 H HCO3 31.2 H 31.1 H ABG pH 7.27 L 7.25 L ABG Total CO2 33.3 H 33.3 H ABG O2 Saturation 100.0 H 100.1 H ABG O2 Content 12.6 L 13.4 L ABG Base Excess 3.3 H 2.7 ABG Hemoglobin 9.0 L 9.6 L ABG Carboxyhemoglobin 2.4 H 2.5 H POC ABG HHb (Measured) 0 -0.1 L ABG Methemoglobin 1.2 1.1 ABG O2 Capacity 12.6 L 13.4 L Hgb O2 Saturation 96.4 96.5 FiO2 40.0 40.0 Crit Value Called To Robbie hilton rn Robbie hilton rn Crit Value Called By Ana gamez curriculum writer Ana gamez curriculum writer Blood Gas Notified Time 2107 25 Sodium Potassium Chloride Carbon Dioxide Anion Gap BUN Creatinine Est GFR ( Amer) Est GFR (Non-Af Amer) Random Glucose Calcium Phosphorus Magnesium Iron TIBC % Saturation Ferritin Total Bilirubin AST ALT Alkaline Phosphatase NT-Pro-B Natriuret Pep Total Protein Albumin Globulin Albumin/Globulin Ratio Thyroxine (T4) T3 Uptake TSH 3rd Generation Urine Eosinophils Ur Random Creatinine 75 Ur Random Sodium 45 Stool Occult Blood Proteinase 3 (PR3) Myeloperoxidase Ab Blood Type Antibody Screen Crossmatch BBK History Checked 10/22/18 10/22/18 10/22/18 05:16 05:44 07:15 WBC RBC Hgb Hct MCV MCH MCHC RDW Plt Count Neut % (Auto) Lymph % (Auto) Young % (Auto) Eos % (Auto) Baso % (Auto) Lymph # (Auto) Young # (Auto) Eos # (Auto) Baso # (Auto) Absolute Neuts (auto) pCO2 75 H* pO2 158.0 H HCO3 32.9 H ABG pH 7.25 L ABG Total CO2 35.2 H ABG O2 Saturation 100.2 H ABG O2 Content 13.2 L ABG Base Excess 4.3 H ABG Hemoglobin 9.4 L ABG Carboxyhemoglobin 2.4 H POC ABG HHb (Measured) -0.2 L ABG Methemoglobin 0.9 ABG O2 Capacity 13.2 L Hgb O2 Saturation 96.9 FiO2 40.0 Crit Value Called To Robbie hilton rn Crit Value Called By Ana gamez curriculum writer Blood Gas Notified Time 550 Sodium Potassium Chloride Carbon Dioxide Anion Gap BUN Creatinine Est GFR ( Amer) Est GFR (Non-Af Amer) Random Glucose Calcium Phosphorus 4.5 Magnesium 2.4 H Iron TIBC % Saturation Ferritin Total Bilirubin AST ALT Alkaline Phosphatase NT-Pro-B Natriuret Pep Total Protein Albumin Globulin Albumin/Globulin Ratio Thyroxine (T4) T3 Uptake TSH 3rd Generation Urine Eosinophils Negative Ur Random Creatinine Ur Random Sodium Stool Occult Blood Proteinase 3 (PR3) Myeloperoxidase Ab Blood Type Antibody Screen Crossmatch BBK History Checked 10/22/18 10/22/18 10/22/18 07:15 08:30 10:00 WBC 9.5 D RBC 3.57 Hgb 9.8 L Hct 33.3 L MCV 93.3 MCH 27.5 MCHC 29.4 L RDW 17.4 H Plt Count 175 Neut % (Auto) 86.0 H Lymph % (Auto) 8.9 L Young % (Auto) 4.5 Eos % (Auto) 0.5 L Baso % (Auto) 0.1 Lymph # (Auto) 0.8 L Young # (Auto) 0.4 Eos # (Auto) 0.1 Baso # (Auto) 0.01 Absolute Neuts (auto) 8.16 H pCO2 67 H pO2 99.0 HCO3 31.5 H ABG pH 7.28 L ABG Total CO2 33.6 H ABG O2 Saturation 99.2 H ABG O2 Content 13.1 L ABG Base Excess 3.6 H ABG Hemoglobin 9.6 L ABG Carboxyhemoglobin 2.3 H POC ABG HHb (Measured) 0.8 ABG Methemoglobin 0.9 ABG O2 Capacity 13.2 L Hgb O2 Saturation 96.0 FiO2 30.0 Crit Value Called To Rn Crit Value Called By [id number] Blood Gas Notified Time 840 Sodium Potassium Chloride Carbon Dioxide Anion Gap BUN Creatinine Est GFR ( Amer) Est GFR (Non-Af Amer) Random Glucose Calcium Phosphorus Magnesium Iron TIBC % Saturation Ferritin Total Bilirubin AST ALT Alkaline Phosphatase NT-Pro-B Natriuret Pep Total Protein Albumin Globulin Albumin/Globulin Ratio Thyroxine (T4) 5.0 L T3 Uptake 35.4 TSH 3rd Generation 0.27 L Urine Eosinophils Ur Random Creatinine Ur Random Sodium Stool Occult Blood Proteinase 3 (PR3) Myeloperoxidase Ab Blood Type Antibody Screen Crossmatch BBK History Checked 10/22/18 10:00 WBC RBC Hgb Hct MCV MCH MCHC RDW Plt Count Neut % (Auto) Lymph % (Auto) Young % (Auto) Eos % (Auto) Baso % (Auto) Lymph # (Auto) Young # (Auto) Eos # (Auto) Baso # (Auto) Absolute Neuts (auto) pCO2 pO2 HCO3 ABG pH ABG Total CO2 ABG O2 Saturation ABG O2 Content ABG Base Excess ABG Hemoglobin ABG Carboxyhemoglobin POC ABG HHb (Measured) ABG Methemoglobin ABG O2 Capacity Hgb O2 Saturation FiO2 Crit Value Called To Crit Value Called By Blood Gas Notified Time Sodium Potassium Chloride Carbon Dioxide Anion Gap BUN Creatinine Est GFR ( Amer) Est GFR (Non-Af Amer) Random Glucose Calcium Phosphorus Magnesium Iron TIBC % Saturation Ferritin Total Bilirubin AST ALT Alkaline Phosphatase NT-Pro-B Natriuret Pep 65806 H Total Protein Albumin Globulin Albumin/Globulin Ratio Thyroxine (T4) T3 Uptake TSH 3rd Generation Urine Eosinophils Ur Random Creatinine Ur Random Sodium Stool Occult Blood Proteinase 3 (PR3) Myeloperoxidase Ab Blood Type Antibody Screen Crossmatch BBK History Checked Assessment & Plan - Assessment and Plan (Free Text) Assessment: 73F w/positive FOBT Plan: Recommend CT abdomen/pelvis with PO contrast Pt is high risk for EGD due to pulmonary HTN and other co-morbidities- will need medical optimization prior to any GI intervention Iron deficiency anemia is likely multi-factorial, recommend PPI and to hold Eliquis for at least 48 hrs prior to any GI intervention after medical optimization DW Dr. Arce - Date & Time Date: 10/22/18 Time: 10:00
[2018-10-22] MEDS ORDERED: Barium Sulfate Susp 2.1% w/v, 2.0% w/w 450 mL Bottle PO ONE (12:16)
--- NOTE | 2018-10-22 12:26 | CP.PCM.CON ---
<Selma Castro - Last Filed: 10/22/18 12:23> History of Present Illness - History of Present Illness History of Present Illness: GI consult note for Dr Billie Castro, PGY-2 Pt seen/examined at bedside with Dr. Miranda. Pt currently on Bipap- history as per daughter at bedside. 73F w/multiple medical co-morbidities as listed below consulted for positive FOBT. Pt originally admitted to hospital for respiratory ditress/COPD exacerbation, currently on Bipap. Pt found to have CAP & severe sepsis, started on Abx. Pt currently resting comfortably in bed on Bipap. Admits to SOB, fever (on admission), Denies abdominal pain, N & V, hematochezia, melena, constipation, diarrhea, changes in urinary habits. Hgb 9.8 from 7.9. PMH: COPD, diastolic CHF, moderate pulmonary hypertension, moderate mitral regurgitation, moderate tricuspid regurgitation, chronic kidney disease, CAD, DM PSH: CABG, hysterectomy, pacemaker placement All: Shellfish SH: Hx of tobacco use (not current), denies ETOH or illicit drug use FH: Non contributory PMD: Perveen Cardio: Salomon Review of Systems - Review of Systems All systems: reviewed and no additional remarkable complaints except - Constitutional Constitutional: Fever - EENT Ears: absent: Dizziness Nose/Mouth/Throat: absent: Sore Throat - Cardiovascular Cardiovascular: absent: Chest Pain - Respiratory Respiratory: Cough - Gastrointestinal Gastrointestinal: absent: Abdominal Pain, Constipation, Diarrhea, Hematemesis, Hematochezia, Melena - Genitourinary Genitourinary: absent: Change in Urinary Stream - Integumentary Integumentary: absent: Rash - Neurological Neurological: absent: Dizziness Past Patient History - Infectious Disease Hx of Infectious Diseases: None - Tetanus Immunizations Tetanus Immunization: Unknown - Past Medical History & Family History Past Medical History?: Yes - Past Social History Smoking Status: Never Smoked - CARDIAC Hx Cardiac Disorders: Yes (CAD, cardiac cath, NSTEMI, CABG) Hx Congestive Heart Failure: Yes (acute systolic CHF.) Hx Hypertension: Yes - PULMONARY Hx Chronic Obstructive Pulmonary Disease (COPD): Yes - NEUROLOGICAL Hx Neurological Disorder: No - HEENT Hx HEENT Problems: Yes (WEARS RX GLASSES) - RENAL Hx Renal Failure: Yes - ENDOCRINE/METABOLIC Hx Diabetes Mellitus Type 2: Yes (diabetic neuropathy) - HEMATOLOGICAL/ONCOLOGICAL Hx Blood Disorders: Yes Hx Anemia: Yes (IRON DEFICIENCY ANEMIA) - INTEGUMENTARY Hx Dermatological Problems: No - MUSCULOSKELETAL/RHEUMATOLOGICAL Hx Arthritis: Yes (B/L knees) - GASTROINTESTINAL Hx Gastrointestinal Disorders: Yes (THORACENTESIS WITH 17OO CC OF FLUID REMOVED 06-27-16) - GENITOURINARY/GYNECOLOGICAL Hx Genitourinary Disorders: Yes (HYSTERECTOMY) - PSYCHIATRIC Hx Psychophysiologic Disorder: Yes (SMOKED CIGARETTES PPD . QUIT 15 YRS AGO) Hx Anxiety: Yes Hx Substance Use: No - SURGICAL HISTORY Hx Surgeries: Yes Hx Cardiac Catheterization: Yes Hx Hysterectomy: Yes Hx Open Heart Surgery: Yes (CABG, pacemaker) - ANESTHESIA Hx Anesthesia: Yes Hx Anesthesia Reactions: No Hx Malignant Hyperthermia: No Meds Allergies/Adverse Reactions: Allergies Allergy/AdvReac Type Severity Reaction Status Date / Time shellfish Allergy Mild ITCHING Uncoded 10/18/18 16:55 - Medications Medications: Current Medications Acetaminophen (Tylenol 325mg Tab) 650 mg PO Q6H PRN PRN Reason: Fever >100.4 F Last Admin: 10/21/18 16:47 Dose: 650 mg Albuterol/Ipratropium (Duoneb 3 Mg/0.5 Mg (3 Ml) Ud) 3 ml IH Q2H PRN PRN Reason: Shortness of Breath Last Admin: 10/19/18 10:38 Dose: 3 ml Apixaban (Eliquis) 2.5 mg PO BID [facility]; Protocol Last Admin: 10/21/18 17:07 Dose: 2.5 mg Atorvastatin Calcium (Lipitor) 40 mg PO DAILY [facility] Last Admin: 10/22/18 09:40 Dose: 40 mg Azithromycin (Zithromax) 500 mg PO DAILY [facility]; Protocol Stop: 10/26/18 10:01 Last Admin: 10/22/18 09:39 Dose: 500 mg Budesonide (Pulmicort Respules) 0.5 mg IH [id number] [facility] Last Admin: 10/22/18 07:41 Dose: 0.5 mg Folic Acid (Folic Acid) 1 mg PO DAILY [facility] Last Admin: 10/22/18 09:40 Dose: 1 mg Furosemide (Lasix) 40 mg IVP DAILY [facility] Last Admin: 10/20/18 09:25 Dose: 40 mg Hydralazine HCl (Apresoline) 10 mg PO QID PRN PRN Reason: for sbp.160 Last Admin: 10/22/18 00:06 Dose: 10 mg Hydralazine HCl (Apresoline) 50 mg PO BID [facility] Cefepime HCl (Maxipime 1gm) 1 gm in 100 mls @ 100 mls/hr IVPB Q12 [facility]; Protocol Last Admin: 10/22/18 09:39 Dose: 100 mls/hr Insulin Human Regular (Humulin R High) 0 units SC ACHS [facility]; Protocol Last Admin: 10/22/18 08:29 Dose: Not Given Levalbuterol HCl (Xopenex) 1.25 mg IH [id number] [facility] Last Admin: 10/22/18 07:42 Dose: 1.25 mg Methylprednisolone (Solu-Medrol) 20 mg IV Q12 [facility] Last Admin: 10/22/18 09:39 Dose: 20 mg Metoprolol Tartrate (Lopressor) 50 mg PO BID [facility] Last Admin: 10/22/18 09:40 Dose: 50 mg Montelukast Sodium (Singulair) 10 mg PO HS [facility] Last Admin: 10/21/18 22:23 Dose: 10 mg Ondansetron HCl (Zofran Inj) 4 mg IVP Q6H PRN PRN Reason: Nausea/Vomiting Last Admin: 10/19/18 07:55 Dose: 4 mg Pantoprazole Sodium (Protonix Ec Tab) 40 mg PO ACB [facility] Pregabalin (Lyrica) 75 mg PO BID [facility] Last Admin: 10/22/18 09:39 Dose: 75 mg Sildenafil Citrate (Revatio) 20 mg PO BID [facility] Last Admin: 10/22/18 09:40 Dose: 20 mg Physical Exam - Constitutional Appears: Non-toxic, No Acute Distress - Head Exam Head Exam: ATRAUMATIC, NORMAL INSPECTION, NORMOCEPHALIC - Eye Exam Eye Exam: EOMI, Normal appearance - Respiratory Exam Respiratory Exam: Accessory Muscle Use (mild), NORMAL BREATHING PATTERN. absent: Respiratory Distress - Cardiovascular Exam Cardiovascular Exam: REGULAR RHYTHM, +S1, +S2 - GI/Abdominal Exam GI & Abdominal Exam: Normal Bowel Sounds, Soft. absent: Distended (obese), Firm, Guarding, Tenderness - Neurological Exam Neurological exam: Alert - Skin Skin Exam: Dry, Intact, Normal Color, Warm Results - Vital Signs Recent Vital Signs: Last Vital Signs Temp 97.5 F L 10/22/18 12:00 Pulse 88 10/22/18 12:00 Resp 20 10/22/18 12:00 BP 160/82 H 10/22/18 12:00 Pulse Ox 99 10/22/18 00:01 - Labs Result Diagrams: 10/22/18 10:00 10/21/18 18:27 Labs: Laboratory Results - last 24 hr 10/19/18 10/21/18 10/21/18 07:00 11:26 12:00 WBC RBC Hgb Hct MCV MCH MCHC RDW Plt Count Neut % (Auto) Lymph % (Auto) Holmes % (Auto) Eos % (Auto) Baso % (Auto) Lymph # (Auto) Holmes # (Auto) Eos # (Auto) Baso # (Auto) Absolute Neuts (auto) pCO2 pO2 HCO3 ABG pH ABG Total CO2 ABG O2 Saturation ABG O2 Content ABG Base Excess ABG Hemoglobin ABG Carboxyhemoglobin POC ABG HHb (Measured) ABG Methemoglobin ABG O2 Capacity Hgb O2 Saturation FiO2 Crit Value Called To Crit Value Called By Blood Gas Notified Time Sodium Potassium Chloride Carbon Dioxide Anion Gap BUN Creatinine Est GFR ( Amer) Est GFR (Non-Af Amer) Random Glucose Calcium Phosphorus Magnesium Ferritin 33.1 Total Bilirubin AST ALT Alkaline Phosphatase NT-Pro-B Natriuret Pep Total Protein Albumin Globulin Albumin/Globulin Ratio Thyroxine (T4) T3 Uptake TSH 3rd Generation Urine Eosinophils Ur Random Creatinine Ur Random Sodium Stool Occult Blood Proteinase 3 (PR3) <1.0 Myeloperoxidase Ab <1.0 Blood Type O POSITIVE Antibody Screen Negative Crossmatch See Detail BBK History Checked Patient has bt 10/21/18 10/21/18 10/21/18 18:27 20:43 21:00 WBC RBC Hgb Hct MCV MCH MCHC RDW Plt Count Neut % (Auto) Lymph % (Auto) Holmes % (Auto) Eos % (Auto) Baso % (Auto) Lymph # (Auto) Holmes # (Auto) Eos # (Auto) Baso # (Auto) Absolute Neuts (auto) pCO2 68 H pO2 166.0 H HCO3 31.2 H ABG pH 7.27 L ABG Total CO2 33.3 H ABG O2 Saturation 100.0 H ABG O2 Content 12.6 L ABG Base Excess 3.3 H ABG Hemoglobin 9.0 L ABG Carboxyhemoglobin 2.4 H POC ABG HHb (Measured) 0 ABG Methemoglobin 1.2 ABG O2 Capacity 12.6 L Hgb O2 Saturation 96.4 FiO2 40.0 Crit Value Called To Robbie hilton rn Crit Value Called By Ana gamez hydroelectric machinery mechanic Blood Gas Notified Time 210 Sodium 140 Potassium 6.0 H* Chloride 102 Carbon Dioxide 31 Anion Gap 13 BUN 80 H Creatinine 3.0 H Est GFR ( Amer) 18 Est GFR (Non-Af Amer) 15 Random Glucose 315 H* Calcium 9.4 Phosphorus Magnesium Ferritin Total Bilirubin 0.3 AST 18 ALT 22 Alkaline Phosphatase 99 NT-Pro-B Natriuret Pep Total Protein 7.7 Albumin 4.2 Globulin 3.5 Albumin/Globulin Ratio 1.2 Thyroxine (T4) T3 Uptake TSH 3rd Generation Urine Eosinophils Ur Random Creatinine Ur Random Sodium Stool Occult Blood Positive H Proteinase 3 (PR3) Myeloperoxidase Ab Blood Type Antibody Screen Crossmatch BBK History Checked 10/22/18 10/22/18 10/22/18 00:05 05:16 05:16 WBC RBC Hgb Hct MCV MCH MCHC RDW Plt Count Neut % (Auto) Lymph % (Auto) Holmes % (Auto) Eos % (Auto) Baso % (Auto) Lymph # (Auto) Holmes # (Auto) Eos # (Auto) Baso # (Auto) Absolute Neuts (auto) pCO2 71 H* pO2 163.0 H HCO3 31.1 H ABG pH 7.25 L ABG Total CO2 33.3 H ABG O2 Saturation 100.1 H ABG O2 Content 13.4 L ABG Base Excess 2.7 ABG Hemoglobin 9.6 L ABG Carboxyhemoglobin 2.5 H POC ABG HHb (Measured) -0.1 L ABG Methemoglobin 1.1 ABG O2 Capacity 13.4 L Hgb O2 Saturation 96.5 FiO2 40.0 Crit Value Called To Robbie hilton rn Crit Value Called By Ana gamez hydroelectric machinery mechanic Blood Gas Notified Time 25 Sodium Potassium Chloride Carbon Dioxide Anion Gap BUN Creatinine Est GFR ( Amer) Est GFR (Non-Af Amer) Random Glucose Calcium Phosphorus Magnesium Ferritin Total Bilirubin AST ALT Alkaline Phosphatase NT-Pro-B Natriuret Pep Total Protein Albumin Globulin Albumin/Globulin Ratio Thyroxine (T4) T3 Uptake TSH 3rd Generation Urine Eosinophils Negative Ur Random Creatinine 75 Ur Random Sodium 45 Stool Occult Blood Proteinase 3 (PR3) Myeloperoxidase Ab Blood Type Antibody Screen Crossmatch BBK History Checked 10/22/18 10/22/18 10/22/18 05:44 07:15 07:15 WBC RBC Hgb Hct MCV MCH MCHC RDW Plt Count Neut % (Auto) Lymph % (Auto) Holmes % (Auto) Eos % (Auto) Baso % (Auto) Lymph # (Auto) Holmes # (Auto) Eos # (Auto) Baso # (Auto) Absolute Neuts (auto) pCO2 75 H* pO2 158.0 H HCO3 32.9 H ABG pH 7.25 L ABG Total CO2 35.2 H ABG O2 Saturation 100.2 H ABG O2 Content 13.2 L ABG Base Excess 4.3 H ABG Hemoglobin 9.4 L ABG Carboxyhemoglobin 2.4 H POC ABG HHb (Measured) -0.2 L ABG Methemoglobin 0.9 ABG O2 Capacity 13.2 L Hgb O2 Saturation 96.9 FiO2 40.0 Crit Value Called To Robbie hilton rn Crit Value Called By Ana gamez hydroelectric machinery mechanic Blood Gas Notified Time 550 Sodium Potassium Chloride Carbon Dioxide Anion Gap BUN Creatinine Est GFR ( Amer) Est GFR (Non-Af Amer) Random Glucose Calcium Phosphorus 4.5 Magnesium 2.4 H Ferritin Total Bilirubin AST ALT Alkaline Phosphatase NT-Pro-B Natriuret Pep Total Protein Albumin Globulin Albumin/Globulin Ratio Thyroxine (T4) 5.0 L T3 Uptake 35.4 TSH 3rd Generation 0.27 L Urine Eosinophils Ur Random Creatinine Ur Random Sodium Stool Occult Blood Proteinase 3 (PR3) Myeloperoxidase Ab Blood Type Antibody Screen Crossmatch BBK History Checked 10/22/18 10/22/18 10/22/18 08:30 10:00 10:00 WBC 9.5 D RBC 3.57 Hgb 9.8 L Hct 33.3 L MCV 93.3 MCH 27.5 MCHC 29.4 L RDW 17.4 H Plt Count 175 Neut % (Auto) 86.0 H Lymph % (Auto) 8.9 L Holmes % (Auto) 4.5 Eos % (Auto) 0.5 L Baso % (Auto) 0.1 Lymph # (Auto) 0.8 L Holmes # (Auto) 0.4 Eos # (Auto) 0.1 Baso # (Auto) 0.01 Absolute Neuts (auto) 8.16 H pCO2 67 H pO2 99.0 HCO3 31.5 H ABG pH 7.28 L ABG Total CO2 33.6 H ABG O2 Saturation 99.2 H ABG O2 Content 13.1 L ABG Base Excess 3.6 H ABG Hemoglobin 9.6 L ABG Carboxyhemoglobin 2.3 H POC ABG HHb (Measured) 0.8 ABG Methemoglobin 0.9 ABG O2 Capacity 13.2 L Hgb O2 Saturation 96.0 FiO2 30.0 Crit Value Called To Rn Crit Value Called By [id number] Blood Gas Notified Time 840 Sodium Potassium Chloride Carbon Dioxide Anion Gap BUN Creatinine Est GFR ( Amer) Est GFR (Non-Af Amer) Random Glucose Calcium Phosphorus Magnesium Ferritin Total Bilirubin AST ALT Alkaline Phosphatase NT-Pro-B Natriuret Pep 83379 H Total Protein Albumin Globulin Albumin/Globulin Ratio Thyroxine (T4) T3 Uptake TSH 3rd Generation Urine Eosinophils Ur Random Creatinine Ur Random Sodium Stool Occult Blood Proteinase 3 (PR3) Myeloperoxidase Ab Blood Type Antibody Screen Crossmatch BBK History Checked Assessment & Plan - Assessment and Plan (Free Text) Assessment: 73F w/multiple medical co-morbidities consulted for postive FOBT Plan: Monitor for bleeding Recommend CT A/P w/PO contrast Pt high risk for EGD Recommend PPI Pt will need to have Eliquis held x 48 hrs prior to EGD DW Dr. Miranda - Date & Time Date: 10/22/18 Time: 09:50 <Keegan Miranda V - Last Filed: 10/22/18 20:41> Meds - Medications Medications: Current Medications Acetaminophen (Tylenol 325mg Tab) 650 mg PO Q6H PRN PRN Reason: Fever >100.4 F Last Admin: 10/21/18 16:47 Dose: 650 mg Albuterol/Ipratropium (Duoneb 3 Mg/0.5 Mg (3 Ml) Ud) 3 ml IH Q2H PRN PRN Reason: Shortness of Breath Last Admin: 10/19/18 10:38 Dose: 3 ml Apixaban (Eliquis) 2.5 mg PO BID [facility]; Protocol Last Admin: 10/21/18 17:07 Dose: 2.5 mg Atorvastatin Calcium (Lipitor) 40 mg PO DAILY [facility] Last Admin: 10/22/18 09:40 Dose: 40 mg Azithromycin (Zithromax) 500 mg PO DAILY [facility]; Protocol Stop: 10/26/18 10:01 Last Admin: 10/22/18 09:39 Dose: 500 mg Budesonide (Pulmicort Respules) 0.5 mg IH [id number] [facility] Last Admin: 10/22/18 19:54 Dose: 0.5 mg Clonidine HCl (Catapres-Tts3 0.3 Mg/24 Hr) 1 patch TD Q7D@1000 [facility] Last Admin: 10/22/18 18:58 Dose: 1 patch Folic Acid (Folic Acid) 1 mg PO DAILY [facility] Last Admin: 10/22/18 09:40 Dose: 1 mg Furosemide (Lasix) 40 mg IVP DAILY [facility] Last Admin: 10/20/18 09:25 Dose: 40 mg Hydralazine HCl (Apresoline) 10 mg PO QID PRN PRN Reason: for sbp.160 Last Admin: 10/22/18 00:06 Dose: 10 mg Hydralazine HCl (Apresoline) 50 mg PO BID [facility] Last Admin: 10/22/18 18:54 Dose: Not Given Cefepime HCl (Maxipime 1gm) 1 gm in 100 mls @ 100 mls/hr IVPB Q12 [facility]; Protocol Last Admin: 10/22/18 09:39 Dose: 100 mls/hr Insulin Human Regular (Humulin R High) 0 units SC ACHS [facility]; Protocol Last Admin: 10/22/18 18:13 Dose: 4 units Levalbuterol HCl (Xopenex) 1.25 mg IH [id number] [facility] Last Admin: 10/22/18 19:54 Dose: 1.25 mg Methylprednisolone (Solu-Medrol) 20 mg IV Q12 [facility] Last Admin: 10/22/18 09:39 Dose: 20 mg Metoprolol Tartrate (Lopressor) 50 mg PO BID [facility] Last Admin: 10/22/18 18:53 Dose: Not Given Montelukast Sodium (Singulair) 10 mg PO HS [facility] Last Admin: 10/21/18 22:23 Dose: 10 mg Ondansetron HCl (Zofran Inj) 4 mg IVP Q6H PRN PRN Reason: Nausea/Vomiting Last Admin: 10/19/18 07:55 Dose: 4 mg Pantoprazole Sodium (Protonix Ec Tab) 40 mg PO ACB [facility] Pregabalin (Lyrica) 75 mg PO BID [facility] Last Admin: 10/22/18 18:53 Dose: Not Given Sildenafil Citrate (Revatio) 20 mg PO BID [facility] Last Admin: 10/22/18 18:53 Dose: Not Given Results - Vital Signs Recent Vital Signs: Last Vital Signs Temp 98.5 F 10/22/18 17:53 Pulse 62 10/22/18 19:58 Resp 21 10/22/18 17:53 BP 197/71 H 10/22/18 18:58 Pulse Ox 99 10/22/18 00:01 - Labs Result Diagrams: 10/22/18 10:00 10/22/18 10:00 Labs: Laboratory Results - last 24 hr 10/21/18 10/21/18 10/22/18 20:43 21:00 00:05 WBC RBC Hgb Hct MCV MCH MCHC RDW Plt Count Neut % (Auto) Lymph % (Auto) Holmes % (Auto) Eos % (Auto) Baso % (Auto) Lymph # (Auto) Holmes # (Auto) Eos # (Auto) Baso # (Auto) Absolute Neuts (auto) pCO2 68 H 71 H* pO2 166.0 H 163.0 H HCO3 31.2 H 31.1 H ABG pH 7.27 L 7.25 L ABG Total CO2 33.3 H 33.3 H ABG O2 Saturation 100.0 H 100.1 H ABG O2 Content 12.6 L 13.4 L ABG Base Excess 3.3 H 2.7 ABG Hemoglobin 9.0 L 9.6 L ABG Carboxyhemoglobin 2.4 H 2.5 H POC ABG HHb (Measured) 0 -0.1 L ABG Methemoglobin 1.2 1.1 ABG O2 Capacity 12.6 L 13.4 L Hgb O2 Saturation 96.4 96.5 FiO2 40.0 40.0 Crit Value Called To Robbie hilton rn Crit Value Called By Ana gamez hydroelectric machinery mechanic Ana gamez hydroelectric machinery mechanic Blood Gas Notified Time 0 25 Sodium Potassium Chloride Carbon Dioxide Anion Gap BUN Creatinine Est GFR ( Amer) Est GFR (Non-Af Amer) Random Glucose Calcium Phosphorus Magnesium Total Bilirubin AST ALT Alkaline Phosphatase NT-Pro-B Natriuret Pep Total Protein Albumin Globulin Albumin/Globulin Ratio Thyroxine (T4) T3 Uptake TSH 3rd Generation Urine Eosinophils Ur Random Creatinine Ur Random Sodium Stool Occult Blood Positive H 10/22/18 10/22/18 10/22/18 05:16 05:16 05:44 WBC RBC Hgb Hct MCV MCH MCHC RDW Plt Count Neut % (Auto) Lymph % (Auto) Holmes % (Auto) Eos % (Auto) Baso % (Auto) Lymph # (Auto) Holmes # (Auto) Eos # (Auto) Baso # (Auto) Absolute Neuts (auto) pCO2 75 H* pO2 158.0 H HCO3 32.9 H ABG pH 7.25 L ABG Total CO2 35.2 H ABG O2 Saturation 100.2 H ABG O2 Content 13.2 L ABG Base Excess 4.3 H ABG Hemoglobin 9.4 L ABG Carboxyhemoglobin 2.4 H POC ABG HHb (Measured) -0.2 L ABG Methemoglobin 0.9 ABG O2 Capacity 13.2 L Hgb O2 Saturation 96.9 FiO2 40.0 Crit Value Called To Robbie hilton rn Crit Value Called By Ana gamez hydroelectric machinery mechanic Blood Gas Notified Time 550 Sodium Potassium Chloride Carbon Dioxide Anion Gap BUN Creatinine Est GFR ( Amer) Est GFR (Non-Af Amer) Random Glucose Calcium Phosphorus Magnesium Total Bilirubin AST ALT Alkaline Phosphatase NT-Pro-B Natriuret Pep Total Protein Albumin Globulin Albumin/Globulin Ratio Thyroxine (T4) T3 Uptake TSH 3rd Generation Urine Eosinophils Negative Ur Random Creatinine 75 Ur Random Sodium 45 Stool Occult Blood 10/22/18 10/22/18 10/22/18 07:15 07:15 08:30 WBC RBC Hgb Hct MCV MCH MCHC RDW Plt Count Neut % (Auto) Lymph % (Auto) Holmes % (Auto) Eos % (Auto) Baso % (Auto) Lymph # (Auto) Holmes # (Auto) Eos # (Auto) Baso # (Auto) Absolute Neuts (auto) pCO2 67 H pO2 99.0 HCO3 31.5 H ABG pH 7.28 L ABG Total CO2 33.6 H ABG O2 Saturation 99.2 H ABG O2 Content 13.1 L ABG Base Excess 3.6 H ABG Hemoglobin 9.6 L ABG Carboxyhemoglobin 2.3 H POC ABG HHb (Measured) 0.8 ABG Methemoglobin 0.9 ABG O2 Capacity 13.2 L Hgb O2 Saturation 96.0 FiO2 30.0 Crit Value Called To Rn Crit Value Called By [id number] Blood Gas Notified Time 840 Sodium Potassium Chloride Carbon Dioxide Anion Gap BUN Creatinine Est GFR ( Amer) Est GFR (Non-Af Amer) Random Glucose Calcium Phosphorus 4.5 Magnesium 2.4 H Total Bilirubin AST ALT Alkaline Phosphatase NT-Pro-B Natriuret Pep Total Protein Albumin Globulin Albumin/Globulin Ratio Thyroxine (T4) 5.0 L T3 Uptake 35.4 TSH 3rd Generation 0.27 L Urine Eosinophils Ur Random Creatinine Ur Random Sodium Stool Occult Blood 10/22/18 10/22/18 10/22/18 10:00 10:00 10:00 WBC 9.5 D RBC 3.57 Hgb 9.8 L Hct 33.3 L MCV 93.3 MCH 27.5 MCHC 29.4 L RDW 17.4 H Plt Count 175 Neut % (Auto) 86.0 H Lymph % (Auto) 8.9 L Holmes % (Auto) 4.5 Eos % (Auto) 0.5 L Baso % (Auto) 0.1 Lymph # (Auto) 0.8 L Holmes # (Auto) 0.4 Eos # (Auto) 0.1 Baso # (Auto) 0.01 Absolute Neuts (auto) 8.16 H pCO2 pO2 HCO3 ABG pH ABG Total CO2 ABG O2 Saturation ABG O2 Content ABG Base Excess ABG Hemoglobin ABG Carboxyhemoglobin POC ABG HHb (Measured) ABG Methemoglobin ABG O2 Capacity Hgb O2 Saturation FiO2 Crit Value Called To Crit Value Called By Blood Gas Notified Time Sodium 143 Potassium 5.7 H* Chloride 106 Carbon Dioxide 26 Anion Gap 18 BUN 84 H Creatinine 2.6 H Est GFR ( Amer) 22 Est GFR (Non-Af Amer) 18 Random Glucose 211 H Calcium 9.5 Phosphorus Magnesium Total Bilirubin 0.4 AST 21 ALT 26 Alkaline Phosphatase 76 NT-Pro-B Natriuret Pep 02537 H Total Protein 7.3 Albumin 4.1 Globulin 3.2 Albumin/Globulin Ratio 1.3 Thyroxine (T4) T3 Uptake TSH 3rd Generation Urine Eosinophils Ur Random Creatinine Ur Random Sodium Stool Occult Blood Attending/Attestation - Attestation I have personally seen and examined this patient.: Yes I have fully participated in the care of the patient.: Yes I have reviewed all pertinent clinical information: Yes Notes (Text): This is an addendum to GI progress report dictated by the GI Fellow. The patient was seen and examined earlier. Medical records, lab studies, imagings were reviewed. Last 24 hours events reviewed. Agreed with the above treatment plan as outlined in GI Fellow 's notes with the addition of the following Patient has other multiple comorbidities COPD Pulmonary arterial hypertension Coronary artery disease Patient is high risk for any endoscopy procedure/sedation Will discuss with the Dr. Schultz Patient will need a cardiopulmonary optimization, patient does have significant pulmonary arterial hypertension We will request CT abdomen pelvis with p.o. contrast Discussed with the patient's daughter who was at bedside 10/22/18 20:37
--- NOTE | 2018-10-22 14:30 | PN ---
DATE: 10/22/2018 REASON FOR CONSULTATION/FOLLOWUP: History of coronary artery disease, CABG, history of PTCA, admitted with shortness of breath, status post pacemaker, paroxysmal atrial fibrillation, worsening renal insufficiency, acute kidney injury. SUBJECTIVE: The patient is on noninvasive ventilator, on CPAP, short of breath. Daughter, Winnie, at the bedside. OBJECTIVE: GENERAL: Moderate respiratory distress, impending respiratory failure, but I told the nurse that the patient is improving on CPAP. Earlier seen by Dr. Chiang. VITAL SIGNS: Temperature afebrile, heart rate 79, blood pressure 164/69. HEENT: PERRLA. Extraocular muscles intact. NECK: Supple. No carotid bruit or thyromegaly. CHEST: Clear to auscultation. HEART: S1, S2 regular. ABDOMEN: Soft. EXTREMITIES: Clubbing and cyanosis negative. 1+ pedal edema. LABORATORY DATA: Today's lab pending, not done as of yet. IMPRESSION: A 73-year-old female with a past medical history significant for coronary artery disease status post coronary artery bypass graft in the past, status post percutaneous transluminal coronary angioplasty, history of coronary artery bypass surgery, four-vessel bypass, left internal mammary artery to left anterior descending, saphenous vein graft to obtuse marginal 1, saphenous vein graft to diagonal, saphenous vein graft to right coronary artery on 06/14/2014 at [facility], history of [id number] myocardial infarction on 05/2015 status post percutaneous transluminal angioplasty of [place] right coronary artery, history of pacemaker, admitted with acute kidney injury, shortness of breath, history of pulmonary hypertension by right heart catheterization, on Revatio; history of paroxysmal atrial fibrillation, on anticoagulation. Last pulmonary artery pressure was 83 mmHg on right ventricular systolic pressure. Yesterday, the patient had a repeat echocardiography done that showed ejection fraction of 76%, RV systolic pressure of 55 mmHg, mild mitral stenosis, trace mitral regurgitation, aortic sclerosis versus mild aortic stenosis, [id number] tricuspid regurgitation. Patient with acute kidney injury and hyperkalemia, Aldactone is on hold, lisinopril is on hold, and hydralazine was started. Today's lab is pending, ordered stat blood workup to see potassium and creatinine trend. We will increase hydralazine to 50 b.i.d. now for better control of the blood pressure. Avoid nephrotoxic medication. Follow up the lab, though the patient has a very borderline troponin most likely secondary to stress, but can go after the catheterization to the acute renal failure requiring dialysis. Continue antibiotics. The patient has right lower lobe pneumonia as well and history of chronic obstructive pulmonary disease exacerbation, history of paroxysmal atrial fibrillation, on anticoagulation; right lower lobe pneumonia; impending respiratory failure, but improving on continuous positive airway pressure. If does not improve, then move to the ICU. Follow up the result of the blood when available. We will increase hydralazine to 50 b.i.d. We will closely follow with you. So far, no plan for cardiac catheterization. The patient's troponin and kidney function is getting worse. If the kidney function trend up, may need the dialysis. Discussed with daughter Toma. We will order the blood workup for tomorrow as well. Sapna Latif MD
--- NOTE | 2018-10-22 14:57 | PN ---
DATE: 10/22/2018 SUBJECTIVE: The patient is 73-year-old, known to me from office practice, came to emergency room because of cough, congestion, spiked fever, was short of breath. So, she came to ER, however, found to have bilateral pneumonia along with COPD exacerbation and congestive heart failure. Yesterday, the patient had acute on chronic renal insufficiency because of aggressive diuresis. She was found to be anemic, was given two blood transfusions. She was given two doses of Kayexalate. Later on, she had bowel movement; however, she was found to be Hemoccult positive and also shortness of breath has got worse in the evening. evaluation was done and they recommended to treat her on telemetry with close observation. The patient was seen and examined this morning, seems to be doing little better, less shortness of breath, has BiPAP. PHYSICAL EXAMINATION: VITAL SIGNS: She is afebrile, pulse 62, respiration 25, and blood pressure 164/69. LUNGS: Bilateral diffuse decreased breath sounds, few crackles. HEART: S1 and S2 audible. ABDOMEN: Soft and nontender. No rebound. No guarding. NEUROLOGIC: She is awake and alert, able to communicate. EXTREMITIES: Moves all extremities. Bilateral leg, no edema. LABORATORY DATA: WBC 9.5, hemoglobin 9.8, hematocrit 33.3, and platelet 175. Chemistry; sodium 140, potassium 6.0, chloride 102, CO2 of 31, BUN 18, creatinine 3.0, and blood sugar 315. ASSESSMENT: 1. Bilateral pneumonia. 2. Respiratory distress and respiratory insufficiency. 3. Chronic obstructive pulmonary disease exacerbation. 4. Congestive heart failure. 5. Paroxysmal atrial fibrillation. 6. Acute on chronic renal insufficiency. 7. Anemia, stool for Hemoccult positive, status post blood transfusion. PLAN: Currently, the patient is on nebulizer treatment. She is on IV steroids. Her blood sugar is being monitored; although, she has noninsulin-dependent diabetes. hemoglobin, her liquids is on hold. We will monitor her blood sugar. Follow up CBC and CMP in a.m. Laurel Schultz MD [facility] # [id number]
[2018-10-22 16:59] LABS: ALB/GLOB RATIO 1.3 (1.1-1.8); ALBUMIN 4.1 g/dL (3.0-4.8); CALCIUM 9.5 mg/dL (8.4-10.5)
--- NOTE | 2018-10-22 18:19 | PN ---
DATE: 10/22/2018 SUBJECTIVE: The patient is in bed in no acute distress, nontoxic. OBJECTIVE: VITAL SIGNS: On exam, temperature is 97, blood pressure is 160/70, respiratory rate 16. HEENT: Unremarkable. NECK: Supple. LUNGS: Have decreased breath sounds. HEART: Normal S1, S2. ABDOMEN: Soft. LABORATORY EXAMINATION: Reveals a white count of 9.5, hemoglobin of 9, BUN of 80, creatinine of 3. BNP is noted. Microbiology is reviewed with yeast in the sputum. Pseudomonas aeruginosa in the urine. This is resistant to cefazolin only, relatively sensitive. Review of orders reveals the patient to be on cefepime and Zithromax. The patient's chest x-ray from today, no active lung disease. Dr. Chiang's consultation is reviewed. ASSESSMENT AND PLAN: A 73-year-old female with history of diastolic congestive heart failure, chronic obstructive lung disease, coronary artery disease, hypertension, diabetes, hyperparathyroidism, panic disorder, moderate pulmonary hypertension, mitral regurgitation, tricuspid regurgitation who is admitted with severe sepsis with community-acquired pneumonia, acute kidney injury, diastolic congestive heart failure on top of chronic congestive heart failure with coagulation-negative Staphylococcus bacteremia most likely a contamination, now on also with Pseudomonas in the urine, on cefepime and Zithromax day #5 with complete 4 to 7 days of antibiotics. The urine culture is noted and the patient has been on the cefepime since which would be adequate coverage also. Juan Miguel Malone MD
--- NOTE | 2018-10-22 20:14 | PN ---
DATE: 10/22/2018 SUBJECTIVE: The patient is currently seen on telemetry. She has a BiPAP mask in place. Family is in the room. Unfortunately that her labs were done this morning and SMA-7 was not requested, so there is no potassium or BUN and creatinine available from earlier today. This will be added to the blood work from the tube that was drawn early in the morning with the possibility of needing to initiate dialysis if the patient remains with refractory hyperkalemia in the setting of acute renal failure superimposed on chronic kidney disease stage IV, there will be no choice but to initiate acute dialysis. The patient's family is agreeable to this plan. MEDICATIONS: Medication list reviewed. The patient is currently on hydralazine, DuoNeb, Eliquis is on hold, folic acid, insulin, Lasix is on hold, Lipitor, Lopressor, Lyrica, Maxipime, Protonix, Pulmicort, Revatio, Singulair, Solu-Medrol, Tylenol, Xopenex, p.o. Zithromax, and Zofran. OBJECTIVE: INTAKE AND OUTPUT: Intake is 1771 and output is 1250. However, urine output from today appears to be sluggish. VITAL SIGNS: Blood pressure is 160/82, temperature 97.5, respiratory rate 20 with a pulse of 88. HEENT: Shows a BiPAP mask in place. NECK: Supple. No neck vein distention. CHEST: Bilateral rhonchi. Scattered rales. Decreased breath sounds. CARDIAC: Normal S1 and S2. Positive MR/TR, AI/. No S3. No S4. No rub. ABDOMEN: Moderately obese. Nondistended. Soft. Bowel sounds are normal. EXTREMITIES: Show no pitting edema of her lower extremity. No cyanosis or clubbing. NEUROLOGIC: Shows her hands to show no asterixis today. The patient is not communicating because she has a BiPAP mask in place. LABORATORY DATA AND IMAGING STUDIES: CBC; white blood cell count 9.5, hemoglobin 9.8 with a platelet count of 175,000. The patient has received 1 unit of packed red blood cells. Chemistries show a potassium yesterday of 6 with a BUN of 80 and a creatinine of 3. Today's labs are pending. Calcium is 9.4. Phosphorus is 4.5. Magnesium level was 2.5 and saturations were 7%. BNP was elevated at 12,200. Blood gas from today pH of 7.28 with a pO2 of 99, pCO2 of 67, and a bicarbonate of 31.5. The patient has a respiratory acidosis. Lactate level was normal. Urine eosinophil stain was negative. Fractional secretion of sodium was greater than 1%. Stools are positive for blood from yesterday. Pancreatitis from 10/19/2018 were negative. Serologies; Legionella pneumonia antigen was negative. Chest CT scan showed bilateral infiltrates consistent with pneumonia. Positive COPD changes. Positive ground glass for nodular opacities. Small hiatal hernia with a right adrenal gland mass 2 x 2 x 2 x 1 cm. Microbiology, urine cultures are positive for Pseudomonas early on. Blood cultures were positive for coag-negative Staph. Sputum was positive for yeast. ASSESSMENT: 1. Acute renal failure superimposed on chronic kidney disease stage IV. Apparently, the patient had mild asterixis yesterday, which apparently is improved. The patient has had refractory hyperkalemia. If the potassium level from today's blood work is not improved, the patient would be a candidate for acute dialysis to help lower her potassium level. Her Aldactone was discontinued. Her DANIEL inhibitor was discontinued. The patient had received Kayexalate yesterday. The patient's family member understands the need for dialysis and they would agree to this plan. 2. Acute on chronic anemia. Hemoglobin level is 9.8. She is status post 1 unit of packed red blood cells. Of note, stools are positive for blood. This also might be contributing to her hyperkalemia. Gastrointestinal has been consulted. The patient is currently high risk for any procedures. She remains on p.o. Protonix. 3. History of chronic obstructive pulmonary disease with bilateral pneumonia on CT scan and possible nodular densities of undetermined etiology. The patient remains on antibiotic therapy. She remains on inhalation therapy. The patient does have an acute respiratory acidosis secondary to CO2 retention. She remains on bilevel positive airway pressure. 4. Atherosclerotic heart disease, status post coronary artery bypass graft, currently stable. 5. Noninsulin-dependent diabetes mellitus. The patient is currently on sliding scale insulin. 6. History of pulmonary hypertension and hypertension, currently stable. 7. History of mitral regurgitation/tricuspid regurgitation with perhaps mild aortic stenosis and aortic insufficiency. The patient's ejection fraction was 62% with left ventricular hypertrophy. PLAN: 1. Discussion with her family. We might need to initiate dialysis if the potassium becomes difficult to control. If potassium level comes back elevated today, I will likely challenge her with another dose of Kayexalate. The patient's family and perhaps the patient are agreeable to a trial of dialysis, which could take place as early as tomorrow, pending the results of today's labs. 2. Agree with antibiotic therapy, should be dose adjusted for renal failure for her bilateral pneumonia. 3. Agree with complete discontinuation of DANIEL inhibition therapy and Aldactone in light of her hyperkalemia. 4. We will obtain a renal ultrasound to assess her kidney size and rule out any obstructive uropathy. There is no evidence for acute interstitial nephritis. 5. Continue to monitor hemoglobin on a daily basis. The patient may be started on iron supplements. I will avoid IV iron in light of her positive blood cultures. 6. Case discussed in detail with staff on 2R. Await results of today's lab work and make a decision about perhaps placement of a dialysis catheter for possible dialysis tomorrow. Stalin Ibanez MD [facility]
--- NOTE | 2018-10-23 00:06 | CP.PCM.PCO ---
Addendum Addendum: 10/23/18 05:49 Nurse paged because patient had SBP of 204. On examination patient was comfortable on bipap but lethargic. Per nurse she was unable to tolerate PO meds. she was given total 20mg hydralazine IVP, BP responded and SBP decreased into the 160s. However later on in the night she had another episode with SBP in the 190s. She was given hydralazine IVP.
[2018-10-23] MEDS: Levalbuterol 1.25 MG/3 ML Inhal Soln UD IH SCH ×4 (01:18→19:22)
[2018-10-23 06:43] LABS: ARTERIAL BLOOD GAS HEMOGLOBIN 10.1 g/dL (11.7-17.4); ARTERIAL BLOOD GAS O2 CAPACITY 13.9 mL/dl (16-24); ARTERIAL BLOOD GAS O2 CONTENT 13.8 ML/dl (15-23); ARTERIAL BLOOD GAS O2 SAT 99.5 % (95-98); ARTERIAL BLOOD GAS PCO2 52 mm/Hg (35-45); ARTERIAL BLOOD GAS PH 7.41 (7.35-7.45); ARTERIAL BLOOD GAS TCO2 34.6 mmol.L (22-28)
[2018-10-23 07:24] LABS: BASO # 0.01 K/mm3 (0.0-2.0); BASO % 0.1 % (0.0-3.0); EOS # 0.1 (0.0-0.7); EOS % 0.7 % (1.5-5.0); LYMPH # 1.2 (1.2-3.4); LYMPH % 12.1 % (22.0-35.0); MEAN CELL VOLUME 91.8 fl (80.0-105.0); MEAN CORPUSCULAR HEMOGLOBIN 27.2 pg (25.0-35.0); MEAN CORPUSCULAR HGB CONC 29.6 g/dl (31.0-37.0); MEAN PLATELET VOLUME 11.8 fl (7.0-11.0); MONO # 0.8 (0.1-0.6); MONO % 7.7 % (1.0-6.0); RBC 3.68 10^6/uL (3.5-6.1); RED CELL DISTRIBUTION WIDTH 17.1 % (11.5-14.5); WHITE BLOOD COUNT 10.1 10^3/uL (4.5-11.0)
[2018-10-23] MEDS: Budesonide 0.5 mg/2 ml Inhal Susp UD IH SCH ×2 (07:24→19:22)
[2018-10-23 07:36] LABS: ALB/GLOB RATIO 1.1 (1.1-1.8); ALBUMIN 4.3 g/dL (3.0-4.8); CALCIUM 10.1 mg/dL (8.4-10.5)
--- NOTE | 2018-10-23 09:09 | PN ---
DATE: 10/23/2018 PULMONARY NOTE SUBJECTIVE: The patient appears comfortable this morning. She is not short of breath at rest. She is much more awake and alert. PHYSICAL EXAMINATION VITAL SIGNS: Temperature is 98.5, pulse is 81, respiratory rate 20, blood pressure 198/87 and oxygen saturation on the BiPAP is 98%. HEENT: Normocephalic and atraumatic. No JVD. CARDIOVASCULAR: Systolic ejection murmur at the lower left sternal border. Positive S3 gallop. LUNGS: Minimal crackles at both bases. Much less/minimal rhonchi. No wheezing. EXTREMITIES: Less edema. No cyanosis. No clubbing. Calves are nontender to palpation. GI: Abdomen is soft, nontender and nondistended. Bowel sounds are positive. SKIN: No acute rash. NEUROLOGIC: Exam limited at the present time. PERTINENT LABORATORY DATA: Arterial blood gas was done this morning on BiPAP with 30% oxygen. Results are: PH 7.41, pCO2 of 52 and pO2 of 115. IMPRESSION: 1. Respiratory failure. 2. Advanced chronic obstructive pulmonary disease. 3. Right lower lobe pneumonia. 4. Congestive heart failure. 5. Rule out myocardial infarction. 6. Paroxysmal atrial fibrillation. 7. Renal insufficiency. PLAN: The patient appears comfortable this morning. She is not short of breath at rest. She is much more awake and alert. I did discuss the case with night nurse and daughter at length. The night nurse stated the patient had a good night. However, the patient's blood pressure was uncontrolled during her shift. We will await additional Cardiology input this morning. I did review the chest x-ray from yesterday. The chest x-ray was actually improved-- with decreased pulmonary vascular congestion. I have also reviewed the arterial blood gas. The arterial blood gas is significantly improved - now with normalization of the pH, as well as a significant decrease in the alveolar-arterial gradient. We will continue with the bilevel positive airway pressure for now; however, I would like to try her off the bilevel positive airway pressure during the day. On physical examination, there is certainly less bronchospasm noted. I will continue the current nebulizer treatments and low-dose intravenous steroids for now. The patient also remains on antibiotic therapy. Temperatures have fully resolved. The leukocytosis has fully resolved. Inputs by Renal and Gastroenterology are also noted. Clinical status of the patient is certainly improved - compared to a few days ago. However, she does remain guarded overall. I will discuss the above with the attending physician. Bhupinder Chiang MD [facility]
[2018-10-23] MEDS: Insulin Reg-HIGH-Coverage SC SCH ×4 (09:59→21:44)
[2018-10-23] MEDS: Cefepime 1gm in NS 100ml 1 GM/100 ML BAG IVPB SCH ×2 (10:05→21:13)
[2018-10-23] MEDS: Sildenafil 20 MG TAB PO SCH (10:05)
[2018-10-23] MEDS: Pantoprazole 40 mg EC Tab PO SCH (10:05)
[2018-10-23] MEDS: MethylPREDNISolone 40 mg Vial IV SCH ×2 (10:07→21:15)
--- NOTE | 2018-10-23 10:25 | CP.PCM.PN ---
<Dakota Yeboah - Last Filed: 10/23/18 18:09> Subjective - Date & Time of Evaluation Date of Evaluation: 10/23/18 Time of Evaluation: 10:20 - Subjective Subjective: No acute overnight events. Patient is still on BiPAP and unable to tolerate by mouth intake including oral contrast for CT scan. No obvious bleeding. Objective - Vital Signs/Intake and Output Vital Signs (last 24 hours): Temp Pulse Resp BP Pulse Ox 98.5 F 99 H 21 184/67 H 99 10/22/18 17:53 10/23/18 08:39 10/22/18 17:53 10/23/18 08:39 10/22/18 00:01 Intake and Output: 10/23/18 10/23/18 06:59 18:59 Intake Total 0 Output Total 775 Balance -775 - Medications Medications: Current Medications Acetaminophen (Tylenol 325mg Tab) 650 mg PO Q6H PRN PRN Reason: Fever >100.4 F Last Admin: 10/21/18 16:47 Dose: 650 mg Albuterol/Ipratropium (Duoneb 3 Mg/0.5 Mg (3 Ml) Ud) 3 ml IH Q2H PRN PRN Reason: Shortness of Breath Last Admin: 10/19/18 10:38 Dose: 3 ml Apixaban (Eliquis) 2.5 mg PO BID [facility]; Protocol Last Admin: 10/21/18 17:07 Dose: 2.5 mg Atorvastatin Calcium (Lipitor) 40 mg PO DAILY [facility] Last Admin: 10/23/18 10:00 Dose: Not Given Azithromycin (Zithromax) 500 mg PO DAILY [facility]; Protocol Stop: 10/26/18 10:01 Last Admin: 10/23/18 10:06 Dose: Not Given Budesonide (Pulmicort Respules) 0.5 mg IH [id number] [facility] Last Admin: 10/23/18 07:24 Dose: 0.5 mg Clonidine HCl (Catapres-Tts3 0.3 Mg/24 Hr) 1 patch TD Q7D@1000 [facility] Last Admin: 10/22/18 18:58 Dose: 1 patch Folic Acid (Folic Acid) 1 mg PO DAILY [facility] Last Admin: 10/23/18 09:59 Dose: Not Given Furosemide (Lasix) 40 mg IVP DAILY [facility] Last Admin: 10/20/18 09:25 Dose: 40 mg Hydralazine HCl (Apresoline) 50 mg PO BID [facility] Last Admin: 10/23/18 09:59 Dose: Not Given Hydralazine HCl (Apresoline) 10 mg IVP Q4 PRN PRN Reason: for SBP>160 Cefepime HCl (Maxipime 1gm) 1 gm in 100 mls @ 100 mls/hr IVPB Q12 [facility]; Protocol Last Admin: 10/23/18 10:05 Dose: 100 mls/hr Insulin Human Regular (Humulin R High) 0 units SC ACHS [facility]; Protocol Last Admin: 10/23/18 09:59 Dose: Not Given Levalbuterol HCl (Xopenex) 1.25 mg IH [id number] [facility] Last Admin: 10/23/18 07:24 Dose: 1.25 mg Methylprednisolone (Solu-Medrol) 20 mg IV Q12 [facility] Last Admin: 10/23/18 10:07 Dose: 20 mg Metoprolol Tartrate (Lopressor) 50 mg PO BID [facility] Last Admin: 10/23/18 10:00 Dose: Not Given Montelukast Sodium (Singulair) 10 mg PO HS [facility] Last Admin: 10/22/18 21:23 Dose: Not Given Ondansetron HCl (Zofran Inj) 4 mg IVP Q6H PRN PRN Reason: Nausea/Vomiting Last Admin: 10/19/18 07:55 Dose: 4 mg Pantoprazole Sodium (Protonix Ec Tab) 40 mg PO ACB [facility] Last Admin: 10/23/18 10:05 Dose: Not Given Pregabalin (Lyrica) 75 mg PO BID [facility] Last Admin: 10/23/18 10:04 Dose: Not Given Sildenafil Citrate (Revatio) 20 mg PO BID [facility] Last Admin: 10/23/18 10:05 Dose: Not Given - Labs Labs: 10/23/18 07:00 10/23/18 07:00 PT 16.5 SECONDS (9.4-12.5) H 10/21/18 06:00 INR 1.46 10/21/18 06:00 APTT 33.6 Seconds (26.9-38.3) 10/18/18 17:00 - Constitutional Appears: Non-toxic, Chronically Ill - Head Exam Head Exam: ATRAUMATIC, NORMAL INSPECTION - ENT Exam ENT Exam: Mucous Membranes Moist, Normal Exam - Respiratory Exam Respiratory Exam: Clear to Ausculation Bilateral, NORMAL BREATHING PATTERN - Cardiovascular Exam Cardiovascular Exam: REGULAR RHYTHM, +S1, +S2 - GI/Abdominal Exam GI & Abdominal Exam: Soft, Normal Bowel Sounds. absent: Tenderness - Extremities Exam Extremities Exam: Normal Inspection. absent: Pedal Edema - Neurological Exam Neurological Exam: absent: Alert, Awake - Psychiatric Exam Psychiatric exam: Depressed, Flat Affect - Skin Skin Exam: Dry, Normal Color Assessment and Plan - Assessment and Plan (Free Text) Assessment: #Suspected occult GI bleed #Pneumonia #NSTEMI #Atrial fibrillation on oral anticoagulation #Pulmonary hypertension #CAD #COPD Plan: -Continue supportive care -EGD contraindicated at this time -Recommend CT abdomen/pelvis with oral contrast when able to tolerate -Continue PPI -Continue to hold Eliquis and NSAIDs Case discussed with Dr. Miranda, see attestation. <Keegan Miranda V - Last Filed: 10/23/18 22:25> Objective - Vital Signs/Intake and Output Vital Signs (last 24 hours): Temp Pulse Resp BP Pulse Ox 98.3 F 60 18 128/45 L 100 10/23/18 18:00 10/23/18 19:50 10/23/18 18:00 10/23/18 19:00 10/23/18 19:50 Intake and Output: 10/23/18 10/24/18 18:59 06:59 Intake Total 695 100 Output Total 1000 Balance -305 100 - Medications Medications: Current Medications Acetaminophen (Tylenol 325mg Tab) 650 mg PO Q6H PRN PRN Reason: Fever >100.4 F Last Admin: 10/21/18 16:47 Dose: 650 mg Albuterol/Ipratropium (Duoneb 3 Mg/0.5 Mg (3 Ml) Ud) 3 ml IH Q2H PRN PRN Reason: Shortness of Breath Last Admin: 10/19/18 10:38 Dose: 3 ml Amlodipine Besylate (Norvasc) 10 mg PO DAILY [facility] Last Admin: 10/23/18 17:31 Dose: 10 mg Apixaban (Eliquis) 2.5 mg PO BID [facility]; Protocol Last Admin: 10/21/18 17:07 Dose: 2.5 mg Atorvastatin Calcium (Lipitor) 40 mg PO DAILY [facility] Last Admin: 10/23/18 10:00 Dose: Not Given Azithromycin (Zithromax) 500 mg PO DAILY [facility]; Protocol Stop: 10/26/18 10:01 Last Admin: 10/23/18 10:06 Dose: Not Given Budesonide (Pulmicort Respules) 0.5 mg IH [id number] [facility] Last Admin: 10/23/18 19:22 Dose: 0.5 mg Folic Acid (Folic Acid) 1 mg PO DAILY [facility] Last Admin: 10/23/18 09:59 Dose: Not Given Furosemide (Lasix) 40 mg IVP DAILY [facility] Last Admin: 10/20/18 09:25 Dose: 40 mg Heparin Sodium (Porcine) (Heparin) 5,000 units SC Q8 [facility]; Protocol Last Admin: 10/23/18 21:16 Dose: 5,000 units Hydralazine HCl (Apresoline) 50 mg PO BID [facility] Last Admin: 10/23/18 17:31 Dose: 50 mg Hydralazine HCl (Apresoline) 10 mg IVP Q4 PRN PRN Reason: SBP > 180 Cefepime HCl (Maxipime 1gm) 1 gm in 100 mls @ 100 mls/hr IVPB Q12 [facility]; Protocol Last Admin: 10/23/18 21:13 Dose: 100 mls/hr Nicardipine HCl (Cardene Iv Premix) 20 mg in 200 mls @ 50 mls/hr IV .Q4H PRN; Protocol PRN Reason: TITRATE PER MD ORDER Last Admin: 10/23/18 18:53 Dose: 5 mg/hr, 50 mls/hr Propofol (Diprivan) 1,000 mg in 100 mls @ 2.879 mls/hr IV .Q24H PRN; Protocol PRN Reason: TITRATE PER MD ORDER Last Admin: 10/23/18 21:25 Dose: 50 mcg/kg/min, 28.794 mls/hr Midazolam 100 mg/100ml in NS (Midazolam 100 Mg/100ml In Ns) 100 mg in 100 mls @ 1 mls/hr IV .Q24H PRN; Protocol PRN Reason: Sedation Last Titration: 10/23/18 16:30 Dose: 7 mg/hr, 7 mls/hr Insulin Human Regular (Humulin R High) 0 units SC ACHS [facility]; Protocol Last Admin: 10/23/18 21:44 Dose: Not Given Levalbuterol HCl (Xopenex) 1.25 mg IH [id number] [facility] Last Admin: 10/23/18 19:22 Dose: 1.25 mg Methylprednisolone (Solu-Medrol) 20 mg IV Q12 [facility] Last Admin: 10/23/18 21:15 Dose: 20 mg Metoprolol Tartrate (Lopressor) 50 mg PO BID [facility] Last Admin: 10/23/18 18:58 Dose: 50 mg Montelukast Sodium (Singulair) 10 mg PO HS [facility] Last Admin: 10/23/18 21:17 Dose: 10 mg Ondansetron HCl (Zofran Inj) 4 mg IVP Q6H PRN PRN Reason: Nausea/Vomiting Last Admin: 10/19/18 07:55 Dose: 4 mg Pantoprazole Sodium (Protonix Ec Tab) 40 mg PO ACB [facility] Last Admin: 10/23/18 10:05 Dose: Not Given Pantoprazole Sodium (Protonix Inj) 40 mg IVP Q12 [facility] Last Admin: 10/23/18 21:13 Dose: 40 mg Pregabalin (Lyrica) 75 mg PO BID [facility] Last Admin: 10/23/18 18:55 Dose: Not Given Sildenafil Citrate (Revatio) 20 mg PO BID [facility] Last Admin: 10/23/18 10:05 Dose: Not Given - Labs Labs: 10/23/18 07:00 10/23/18 07:00 PT 14.8 SECONDS (9.4-12.5) H 10/23/18 14:00 INR 1.33 10/23/18 14:00 APTT 26.6 Seconds (26.9-38.3) L 10/23/18 14:00 Attending/Attestation - Attestation I have personally seen and examined this patient.: Yes I have fully participated in the care of the patient.: Yes I have reviewed all pertinent clinical information, including history, physical exam and plan: Yes Notes (Text): This is an addendum to GI progress report dictated by the GI Fellow. The patient was seen and examined earlier. Medical records, lab studies, imagings were reviewed. Last 24 hours events reviewed. Agreed with the above treatment plan as outlined in GI Fellow 's notes with the addition of the following Previous events noted Patient is intubated on vent History of anemia, stool for occult blood positive High risk patient for any endoscopy evaluation Follow-up hemoglobin CAT abdomen and pelvis scan when patient is more stable 10/23/18 22:24
--- NOTE | 2018-10-23 11:48 | PN ---
DATE: 10/23/2018 SUBJECTIVE: The patient is in bed in no acute distress, nontoxic, was seen earlier today. PHYSICAL EXAMINATION VITAL SIGNS: On exam, temperature is 98, blood pressure is 195/80, respiratory rate of 18 and heart rate of 78. HEENT: Unremarkable. NECK: Supple. LUNGS: Have decreased breath sounds. HEART: Normal S1 and S2. ABDOMEN: Soft. LABORATORY EXAMINATION: Reveals a white count of 10,000 and hemoglobin of 10. Chemistries reveals a BUN of 76 and creatinine of 2.3. Urinalysis is noted and stool for occult blood is noted. Urine for Legionella antigen is negative. Microbiology reveals yeast in the urine. There is Pseudomonas aeruginosa in the urine and coag-negative staph in blood in one bottle. Review of orders reveals the patient is currently on cefepime which requires renewal. The patient is on Solu-Medrol. The patient is on Zithromax. communication report is reviewed. ASSESSMENT AND PLAN: This is a 73-year-old female seen earlier this morning in [facility], bed 2, who has a history of diastolic congestive heart failure and chronic obstructive lung disease, coronary artery disease, hypertension, diabetes, hyperparathyroidism, panic disorder, moderate pulmonary hypertension, mitral regurgitation, tricuspid regurgitation who was admitted on this admission with severe sepsis with community-acquired pneumonia, acute kidney injury, diastolic congestive heart failure on top of chronic congestive heart failure and a coag-negative Staphylococcus bacteremia most consistent with contamination with Pseudomonas in the urine, currently on cefepime and Zithromax. The patient had adequate antibiotic therapy and today is day #6 of 4-7 days of antibiotics. Once the blood pressure is controlled by Internal Medicine group, the patient may complete 4-7 days of antibiotics. Juan Miguel Malone MD
--- NOTE | 2018-10-23 12:11 | CP.PCM.CON ---
History of Present Illness - History of Present Illness History of Present Illness: ICU CONSULT NOTE FOR DR. RD Tovar PGY1 PMH: COPD, diastolic CHF, moderate pulmonary hypertension, moderate mitral regurgitation, moderate tricuspid regurgitation, chronic kidney disease, CAD s/p open heart surgery, NIDDM PSH: Hysterectomy, CABG, Pacemaker placement All: Shellfish Meds: see MAR Social: denies ETOH, illicit drugs, and tobacco. Former heavy smoker. FamHx: non-contributory Past Patient History - Infectious Disease Hx of Infectious Diseases: None - Tetanus Immunizations Tetanus Immunization: Unknown - Past Medical History & Family History Past Medical History?: Yes - Past Social History Smoking Status: Never Smoked - CARDIAC Hx Cardiac Disorders: Yes (CAD, cardiac cath, NSTEMI, CABG) Hx Congestive Heart Failure: Yes (acute systolic CHF.) Hx Hypertension: Yes - PULMONARY Hx Chronic Obstructive Pulmonary Disease (COPD): Yes - NEUROLOGICAL Hx Neurological Disorder: No - HEENT Hx HEENT Problems: Yes (WEARS RX GLASSES) - RENAL Hx Renal Failure: Yes - ENDOCRINE/METABOLIC Hx Diabetes Mellitus Type 2: Yes (diabetic neuropathy) - HEMATOLOGICAL/ONCOLOGICAL Hx Blood Disorders: Yes Hx Anemia: Yes (IRON DEFICIENCY ANEMIA) - INTEGUMENTARY Hx Dermatological Problems: No - MUSCULOSKELETAL/RHEUMATOLOGICAL Hx Arthritis: Yes (B/L knees) - GASTROINTESTINAL Hx Gastrointestinal Disorders: Yes (THORACENTESIS WITH 17OO CC OF FLUID REMOVED 06-27-16) - GENITOURINARY/GYNECOLOGICAL Hx Genitourinary Disorders: Yes (HYSTERECTOMY) - PSYCHIATRIC Hx Psychophysiologic Disorder: Yes (SMOKED CIGARETTES PPD . QUIT 15 YRS AGO) Hx Anxiety: Yes Hx Substance Use: No - SURGICAL HISTORY Hx Surgeries: Yes Hx Cardiac Catheterization: Yes Hx Hysterectomy: Yes Hx Open Heart Surgery: Yes (CABG, pacemaker) - ANESTHESIA Hx Anesthesia: Yes Hx Anesthesia Reactions: No Hx Malignant Hyperthermia: No Meds Allergies/Adverse Reactions: Allergies Allergy/AdvReac Type Severity Reaction Status Date / Time shellfish Allergy Mild ITCHING Uncoded 10/18/18 16:55 - Medications Medications: Current Medications Acetaminophen (Tylenol 325mg Tab) 650 mg PO Q6H PRN PRN Reason: Fever >100.4 F Last Admin: 10/21/18 16:47 Dose: 650 mg Albuterol/Ipratropium (Duoneb 3 Mg/0.5 Mg (3 Ml) Ud) 3 ml IH Q2H PRN PRN Reason: Shortness of Breath Last Admin: 10/19/18 10:38 Dose: 3 ml Amlodipine Besylate (Norvasc) 10 mg PO DAILY [facility] Apixaban (Eliquis) 2.5 mg PO BID [facility]; Protocol Last Admin: 10/21/18 17:07 Dose: 2.5 mg Atorvastatin Calcium (Lipitor) 40 mg PO DAILY [facility] Last Admin: 10/23/18 10:00 Dose: Not Given Azithromycin (Zithromax) 500 mg PO DAILY [facility]; Protocol Stop: 10/26/18 10:01 Last Admin: 10/23/18 10:06 Dose: Not Given Budesonide (Pulmicort Respules) 0.5 mg IH [id number] [facility] Last Admin: 10/23/18 07:24 Dose: 0.5 mg Folic Acid (Folic Acid) 1 mg PO DAILY [facility] Last Admin: 10/23/18 09:59 Dose: Not Given Furosemide (Lasix) 40 mg IVP DAILY [facility] Last Admin: 10/20/18 09:25 Dose: 40 mg Hydralazine HCl (Apresoline) 50 mg PO BID [facility] Last Admin: 10/23/18 09:59 Dose: Not Given Hydralazine HCl (Apresoline) 10 mg IVP Q4 [facility] Cefepime HCl (Maxipime 1gm) 1 gm in 100 mls @ 100 mls/hr IVPB Q12 [facility]; Protocol Last Admin: 10/23/18 10:05 Dose: 100 mls/hr Insulin Human Regular (Humulin R High) 0 units SC ACHS [facility]; Protocol Last Admin: 10/23/18 11:36 Dose: Not Given Levalbuterol HCl (Xopenex) 1.25 mg IH [id number] [facility] Last Admin: 10/23/18 07:24 Dose: 1.25 mg Methylprednisolone (Solu-Medrol) 20 mg IV Q12 [facility] Last Admin: 10/23/18 10:07 Dose: 20 mg Metoprolol Tartrate (Lopressor) 50 mg PO BID [facility] Last Admin: 10/23/18 10:00 Dose: Not Given Montelukast Sodium (Singulair) 10 mg PO HS [facility] Last Admin: 10/22/18 21:23 Dose: Not Given Ondansetron HCl (Zofran Inj) 4 mg IVP Q6H PRN PRN Reason: Nausea/Vomiting Last Admin: 10/19/18 07:55 Dose: 4 mg Pantoprazole Sodium (Protonix Ec Tab) 40 mg PO ACB [facility] Last Admin: 10/23/18 10:05 Dose: Not Given Pregabalin (Lyrica) 75 mg PO BID [facility] Last Admin: 10/23/18 10:04 Dose: Not Given Sildenafil Citrate (Revatio) 20 mg PO BID [facility] Last Admin: 10/23/18 10:05 Dose: Not Given Results - Vital Signs Recent Vital Signs: Last Vital Signs Temp 98.5 F 10/22/18 17:53 Pulse 99 H 10/23/18 08:39 Resp 21 10/22/18 17:53 BP 184/67 H 10/23/18 08:39 Pulse Ox 99 10/22/18 00:01 - Labs Result Diagrams: 10/23/18 07:00 10/23/18 07:00 Labs: Laboratory Results - last 24 hr 10/22/18 10/23/18 10/23/18 10:00 06:40 07:00 WBC 10.1 RBC 3.68 Hgb 10.0 L Hct 33.8 L MCV 91.8 MCH 27.2 MCHC 29.6 L RDW 17.1 H Plt Count 182 MPV 11.8 H Neut % (Auto) 79.4 H Lymph % (Auto) 12.1 L [place] % (Auto) 7.7 H Eos % (Auto) 0.7 L Baso % (Auto) 0.1 Lymph # (Auto) 1.2 [place] # (Auto) 0.8 H Eos # (Auto) 0.1 Baso # (Auto) 0.01 Absolute Neuts (auto) 7.99 H pCO2 52 H pO2 115.0 H HCO3 33.0 H ABG pH 7.41 ABG Total CO2 34.6 H ABG O2 Saturation 99.5 H ABG O2 Content 13.8 L ABG Base Excess 7.2 H ABG Hemoglobin 10.1 L ABG Carboxyhemoglobin 2.5 H POC ABG HHb (Measured) 0.5 ABG Methemoglobin 1.4 ABG O2 Capacity 13.9 L Hgb O2 Saturation 95.6 FiO2 30.0 Sodium 143 Potassium 5.7 H* Chloride 106 Carbon Dioxide 26 Anion Gap 18 BUN 84 H Creatinine 2.6 H Est GFR ( Amer) 22 Est GFR (Non-Af Amer) 18 Random Glucose 211 H Calcium 9.5 Phosphorus Magnesium Total Bilirubin 0.4 AST 21 ALT 26 Alkaline Phosphatase 76 Total Protein 7.3 Albumin 4.1 Globulin 3.2 Albumin/Globulin Ratio 1.3 10/23/18 07:00 WBC RBC Hgb Hct MCV MCH MCHC RDW Plt Count MPV Neut % (Auto) Lymph % (Auto) [place] % (Auto) Eos % (Auto) Baso % (Auto) Lymph # (Auto) [place] # (Auto) Eos # (Auto) Baso # (Auto) Absolute Neuts (auto) pCO2 pO2 HCO3 ABG pH ABG Total CO2 ABG O2 Saturation ABG O2 Content ABG Base Excess ABG Hemoglobin ABG Carboxyhemoglobin POC ABG HHb (Measured) ABG Methemoglobin ABG O2 Capacity Hgb O2 Saturation FiO2 Sodium 149 H Potassium 4.5 Chloride 109 H Carbon Dioxide 34 H Anion Gap 11 BUN 76 H Creatinine 2.3 H Est GFR ( Amer) 25 Est GFR (Non-Af Amer) 21 Random Glucose 241 H Calcium 10.1 Phosphorus 3.2 Magnesium 2.5 H Total Bilirubin 0.5 AST 27 ALT 33 Alkaline Phosphatase 85 Total Protein 8.0 Albumin 4.3 Globulin 3.7 Albumin/Globulin Ratio 1.1
[2018-10-23] MEDS: Nicardipine 20 MG/200 ML 20 MG/200 ML BAG IV PRN ×2 (12:30→18:53)
[2018-10-23] MEDS ORDERED: Etomidate 20 mg/10ml Inj IV ONE (12:58)
[2018-10-23] MEDS ORDERED: Midazolam 2 MG/2 ML VIAL ONE (12:59)
[2018-10-23] MEDS ORDERED: Propofol 10 mg/ml 1,000 MG/100 ML VIAL ONE (13:10)
--- NOTE | 2018-10-23 13:24 | RAD ---
Date of service: 10/23/2018 HISTORY: SOB COMPARISON: 10/22/2018 FINDINGS: LUNGS: No active pulmonary disease. PLEURA: No significant pleural effusion identified, no pneumothorax apparent. CARDIOVASCULAR: Aortic calcification Mild to moderate cardiomegaly moderate vascular congestion OSSEOUS STRUCTURES: Sternal wires VISUALIZED UPPER ABDOMEN: Normal. OTHER FINDINGS: Dual lead pacemaker IMPRESSION: Mild to moderate cardiomegaly moderate vascular congestion
[2018-10-23] MEDS ORDERED: Midazolam 2 MG/2 ML VIAL IVP ONE (13:27)
[2018-10-23] MEDS ORDERED: Etomidate 20 mg/10ml Inj IVP STA (13:27)
[2018-10-23] MEDS ORDERED: Propofol 10 mg/ml Inj (20 ML) IVP ONE (13:27)
[2018-10-23] MEDS: Propofol 10 mg/ml 1,000 MG/100 ML VIAL IV PRN ×3 (13:41→21:25)
--- NOTE | 2018-10-23 13:41 | PN ---
DATE: 10/23/2018 REASON FOR CONSULTATION: History of coronary artery disease, CABG, history of PTCA, admitted with shortness of breath, status post pacemaker, paroxysmal atrial fibrillation, worsening renal insufficiency, acute kidney injury, inability to take p.o. meds, hypertension. SUBJECTIVE: The patient denies any chest pain, shortness of breath or any new palpitations. Daughter is at the bedside. OBJECTIVE: GENERAL: Mild respiratory distress. VITAL SIGNS: Temperature afebrile, heart rate 99, blood pressure 184/67. HEENT: PERRLA. Extraocular muscles intact. NECK: Supple. No carotid bruit or thyromegaly. CHEST: Clear to auscultation. HEART: S1, S2. Regular. ABDOMEN: Soft. EXTREMITIES: Clubbing and cyanosis, negative. LABORATORY DATA: Blood workup, WBC 10.1, hemoglobin 10, hematocrit 33.8, platelet count 182. Chemistries shows sodium 149, potassium 4.5, chloride 109, carbon dioxide 34, anion gap of 11, BUN 76, creatinine 2.3. IMPRESSION: A 73-year-old obese female, body mass index 40 kg/m2, history of coronary artery disease, history of coronary artery bypass graft in 2013, history of stent in circle right coronary artery is occluded, admitted with respiratory insufficiency, chronic obstructive pulmonary disease exacerbation, borderline troponin positive secondary to possibly renal insufficiency, acute kidney injury, worsened renal insufficiency, hyperkalemia, respiratory insufficiency, inability to take oral medications, on intravenous. RECOMMENDATIONS: Continue Catapres patch #3, continue intravenous hydralazine. If the blood pressure is not well controlled, we will move to intensive care unit because the patient has inability to take oral medications and starts choking as per nurse taking care of the patient. Monitor renal function, renal function is trending down. Not a candidate at this time to do cardiac catheterization because we will put the patient into complete dialysis. Asymptomatic, no chest pain, history of pulmonary hypertension was on Revatio, but now we will hold because of the inability to take oral medications. We will follow with you. We will transfer to intensive care unit for intravenous antihypertensive medication. The patient has been evaluated by plasma processing centrifuge operator, but . Request again to transfer to intensive care unit. Overall, the patient's condition is critical. retirement prognosis is guarded. Discussed with the daughter who is an DRUG SAFETY ASSISTANT named Yudy, who is at the bedside. Yesterday discussed with the other daughter Winnie, who was at the bedside. Recently the patient had the pacemaker interrogation done; end-of-life is [address] Thank you Dr. Schultz for providing us the opportunity in taking care of the patient Sobeida Emerson. Sapna Latif MD
[2018-10-23 13:56] LABS: ANCA SCREEN NEGATIVE (NEGATIVE)
--- NOTE | 2018-10-23 14:00 | CP.PCM.PN ---
Subjective - Date & Time of Evaluation Date of Evaluation: 10/23/18 Time of Evaluation: 13:43 - Subjective Subjective: MICU Re-consult Note Patient is 73yo female with PMhx of severe pulm HTN, COPD on home O2, diastolic CHF, moderate pulmonary hypertension, moderate mitral regurgitation, modeterate tricuspid regurgitation, chronic kidney disease, CAD s/p open heart surgery, NIDDM admitted to telemetry with hypercapnia, PNA, resp failure requiring BIPAP. ICU re-consulted for hypertension, SBP 220s, worsening resp distress. Upon my examination patient is awake, confused, tachypenic, RR 30s, in moderate distress, subsequently intubated. Currently intubated on Propofol Family uptated of events CXR with worsening pulm congestion/edema Objective - Vital Signs/Intake and Output Vital Signs (last 24 hours): Temp Pulse Resp BP Pulse Ox 98.5 F 99 H 21 184/67 H 99 10/22/18 17:53 10/23/18 08:39 10/22/18 17:53 10/23/18 08:39 10/22/18 00:01 Intake and Output: 10/23/18 10/23/18 06:59 18:59 Intake Total 0 Output Total 775 Balance -775 - Medications Medications: Current Medications Acetaminophen (Tylenol 325mg Tab) 650 mg PO Q6H PRN PRN Reason: Fever >100.4 F Last Admin: 10/21/18 16:47 Dose: 650 mg Albuterol/Ipratropium (Duoneb 3 Mg/0.5 Mg (3 Ml) Ud) 3 ml IH Q2H PRN PRN Reason: Shortness of Breath Last Admin: 10/19/18 10:38 Dose: 3 ml Amlodipine Besylate (Norvasc) 10 mg PO DAILY [facility] Apixaban (Eliquis) 2.5 mg PO BID [facility]; Protocol Last Admin: 10/21/18 17:07 Dose: 2.5 mg Atorvastatin Calcium (Lipitor) 40 mg PO DAILY [facility] Last Admin: 10/23/18 10:00 Dose: Not Given Azithromycin (Zithromax) 500 mg PO DAILY [facility]; Protocol Stop: 10/26/18 10:01 Last Admin: 10/23/18 10:06 Dose: Not Given Budesonide (Pulmicort Respules) 0.5 mg IH [id number] [facility] Last Admin: 10/23/18 07:24 Dose: 0.5 mg Folic Acid (Folic Acid) 1 mg PO DAILY [facility] Last Admin: 10/23/18 09:59 Dose: Not Given Furosemide (Lasix) 40 mg IVP DAILY [facility] Last Admin: 10/20/18 09:25 Dose: 40 mg Hydralazine HCl (Apresoline) 50 mg PO BID [facility] Last Admin: 10/23/18 09:59 Dose: Not Given Hydralazine HCl (Apresoline) 10 mg IVP Q4 [facility] Cefepime HCl (Maxipime 1gm) 1 gm in 100 mls @ 100 mls/hr IVPB Q12 [facility]; Protocol Last Admin: 10/23/18 10:05 Dose: 100 mls/hr Nicardipine HCl (Cardene Iv Premix) 20 mg in 200 mls @ 50 mls/hr IV .Q4H PRN; Protocol PRN Reason: TITRATE PER MD ORDER Last Admin: 10/23/18 12:30 Dose: 5 mg/hr, 50 mls/hr Propofol (Diprivan) 1,000 mg in 100 mls @ 2.879 mls/hr IV .Q24H PRN; Protocol PRN Reason: TITRATE PER MD ORDER Insulin Human Regular (Humulin R High) 0 units SC ACHS [facility]; Protocol Last Admin: 10/23/18 11:36 Dose: Not Given Levalbuterol HCl (Xopenex) 1.25 mg IH [id number] [facility] Last Admin: 10/23/18 07:24 Dose: 1.25 mg Methylprednisolone (Solu-Medrol) 20 mg IV Q12 [facility] Last Admin: 10/23/18 10:07 Dose: 20 mg Metoprolol Tartrate (Lopressor) 50 mg PO BID [facility] Last Admin: 10/23/18 10:00 Dose: Not Given Montelukast Sodium (Singulair) 10 mg PO HS [facility] Last Admin: 10/22/18 21:23 Dose: Not Given Ondansetron HCl (Zofran Inj) 4 mg IVP Q6H PRN PRN Reason: Nausea/Vomiting Last Admin: 10/19/18 07:55 Dose: 4 mg Pantoprazole Sodium (Protonix Ec Tab) 40 mg PO ACB [facility] Last Admin: 10/23/18 10:05 Dose: Not Given Pregabalin (Lyrica) 75 mg PO BID [facility] Last Admin: 10/23/18 10:04 Dose: Not Given Sildenafil Citrate (Revatio) 20 mg PO BID [facility] Last Admin: 10/23/18 10:05 Dose: Not Given - Labs Labs: 10/23/18 07:00 10/23/18 07:00 PT 16.5 SECONDS (9.4-12.5) H 10/21/18 06:00 INR 1.46 10/21/18 06:00 APTT 33.6 Seconds (26.9-38.3) 10/18/18 17:00 - Constitutional Appears: In Acute Distress, Older Than Stated Age, Combative, Chronically Ill - Head Exam Head Exam: NORMAL INSPECTION - Eye Exam Eye Exam: Normal appearance - ENT Exam ENT Exam: Mucous Membranes Moist - Respiratory Exam Respiratory Exam: Accessory Muscle Use, Decreased Breath Sounds - Cardiovascular Exam Cardiovascular Exam: REGULAR RHYTHM, +S1, +S2 - GI/Abdominal Exam GI & Abdominal Exam: Soft, Normal Bowel Sounds - Extremities Exam Extremities Exam: Pedal Edema - Neurological Exam Neurological Exam: Altered - Skin Skin Exam: Normal Color, Warm Assessment and Plan - Assessment and Plan (Free Text) Assessment: 73yo female with PMHx as stated with resp failure, hypercapnia COPD on home O2 Pulm HTN, severe Hypercapnic resp failure HTN urgency CHF, acute diastolic TR/MR CAD s/p CABG NIDDM Renal failure Pulm edema Multi-organ failure - currently intubated, sedated on Propofol, difficult to sedate - BP 150/79, HR 95, O2 100% on PRVC - family notified - given Lasix 40mg IV x 1 Recommend: - cont with vent uspport, low tidal vol ventilation, duonebs PRN, daily CXR, ABG sedation vacation - broad spectrum abx, Cefepime, Vanco, Azithro, check Urine Lg, Strep, Check procal - Panculture - BP control - monitor LFTs - Lasix 40mg IV BID - cardio, pulm follow up - sedation - repeat labs, check ABG - monitor Cr - GI ppx - DVT ppx - Monitor in MICU Critical care time 45 minutes
[2018-10-23] MEDS: Midazolam 100 mg/100ml in NS 100 MG/100 ML SOL IV PRN (14:16)
--- NOTE | 2018-10-23 14:17 | PCM.PROC ---
Procedures Attestation:: I certify that I have explained the specified Operation(s) or Procedure(s), risks, benefits and reasonable alternatives to the Patient and/or other person responsible. The opportunity was given to ask questions and all questions answered - Intubation Time Out Performed: Yes Sedative: Etomidate, Versed Laryngoscope: Glidescope ET Tube Size: 7.5 ET Tube Secured at Depth: 22 ET Tube Secured Locarion: Teeth ET Tube Placement Confirmation: Visualized Passing Through Cords, Breath Sounds Equal Bilaterally, No Breath Sounds Over Epigastrum, Confirmation w/Capnometry Patient Tolerated Procedure: Well Procedure Immediate Complications: None
--- NOTE | 2018-10-23 14:28 | RAD ---
Date of service: 10/23/2018 HISTORY: Intubated. COMPARISON: Multiple serial examinations preceding the most recent study: October 23, 2018 time 12:40. FINDINGS: LUNGS: Stable pulmonary congestion. PLEURA: No significant pleural effusion identified, no pneumothorax apparent. CARDIOVASCULAR: Atherosclerotic calcifications identified primarily aortic arch. Position/ configuration of pacemaker No significant interval change compared to the prior examination(s). OSSEOUS STRUCTURES: No significant abnormalities. VISUALIZED UPPER ABDOMEN: Normal. OTHER FINDINGS: Satisfactory position recently placed endotracheal tube. Nasogastric tube tip in the proximal stomach. Optimal positioning would require advancing least 5 cm. IMPRESSION: Satisfactory position of recently placed endotracheal tube. Acceptable but suboptimal position nasogastric tube.
--- NOTE | 2018-10-23 14:31 | PN ---
DATE: 10/23/2018 SUBJECTIVE: The patient is 73-year-old, seen and examined, currently on BIPAP, seems to be doing well. She is fully awake and alert. Last night, she was found to be lethargic and having difficulty swallowing, so her oral blood pressure medication were on hold. She was given Catapres patch #3. She was given multiple doses of hydralazine, still blood pressure is high. PHYSICAL EXAMINATION: GENERAL: She is awake, alert and able to communicate. VITAL SIGNS: She is afebrile. Pulse 99, respiration 18 and blood pressure 184/67. LUNGS: Bilateral diffusely decreased breath sounds. Few crackle at bases. HEART: S1 and S2, audible. ABDOMEN: Soft and nontender. No rebound. No guarding. NEUROLOGICAL: The patient is awake,alert, oriented and able to communicate. EXTREMITIES: Bilateral legs, no edema. LABORATORY DATA: WBC 10.1, hemoglobin 10, hematocrit 33 and platelet 182. Chemistry, sodium 149, potassium 4.5, chloride 109, CO2 of 34, BUN 76, creatinine 2.3 and blood sugar 241. Stool for Hemoccult is positive. Sputum positive for yeast. Urine positive for Pseudomonas. coag negative staph. ASSESSMENT: 1. Bilateral pneumonia. 2. Chronic obstructive pulmonary disease. 3. Chronic heart failure. 4. Ssppi-er-qxyfhjk renal failure. 5. Hypertension. 6. Pulmonary hypertension. 7. Hyperlipidemia. 8. Insulin-dependant diabetes. PLAN: Currently, the patient is on nebulizer treatment. Continue on nebulizer treatment. She is on Eliquis. She is on folic acid. We will continue on Lasix 40 daily. She is on atorvastatin beta-benita. We will continue her on Protonix. Continue her on Zithromax. We will get Pulmonary evaluation, we will give her dose of Norvasc. Continue to monitor her CBC and CMP in a.m. Laurel Schultz MD
[2018-10-23 14:34] LABS: INR 1.33; PARTIAL THROMBOPLASTIN TIME 26.6 Seconds (26.9-38.3); PROTHROMBIN TIME 14.8 SECONDS (9.4-12.5)
[2018-10-23 15:56] LABS: ARTERIAL BLOOD GAS HCO3 35.6 mmol/L (21-28); ARTERIAL BLOOD GAS HEMOGLOBIN 8.9 g/dL (11.7-17.4); ARTERIAL BLOOD GAS O2 CAPACITY 12.3 mL/dl (16-24); ARTERIAL BLOOD GAS O2 CONTENT 12.3 ML/dl (15-23); ARTERIAL BLOOD GAS O2 SAT 99.7 % (95-98); ARTERIAL BLOOD GAS PCO2 69 mm/Hg (35-45); ARTERIAL BLOOD GAS PH 7.32 (7.35-7.45); ARTERIAL BLOOD GAS TCO2 37.7 mmol.L (22-28)
--- NOTE | 2018-10-23 16:22 | PN ---
DATE: 10/23/2018 SUBJECTIVE: The patient is seen lying in bed. She is awake, she is alert. She is in mild respiratory distress. She reports she is feeling a little bit better. As per the nursing staff, she has been choking and gagging on her liquids. Currently not receiving any oral medications. PHYSICAL EXAMINATION: GENERAL: Elderly lady lying in bed. VITAL SIGNS: Blood pressure 184/67, heart rate 99, respiratory rate 21, temperature 98.5. HEENT: Normocephalic, atraumatic, positive pallor. NECK: Supple, no JVD. LUNGS: Bilateral rhonchi, bilateral distant breath sounds, bilateral basilar rales. CARDIAC: S1, S2, regular rate and rhythm, positive murmur, no rub. ABDOMEN: Soft, distended, bowel sounds present. EXTREMITIES: No lower extremity edema. INTAKE/OUTPUT: 0/775? LABORATORY DATA: WBC 10, hemoglobin 10, hematocrit 34, platelets 182. Sodium 149, potassium 4.5, chloride 109, CO2 of 34, BUN 76, creatinine 2.3, glucose 241, calcium 10.1, phosphorus 3.2, magnesium 2.5, albumin 4.3. Urine eosinophils negative, urine creatinine 75, urine sodium 45. Stool occult positive. Sputum culture yeast. Urine culture Pseudomonas. Blood culture, coagulase-negative staph. CURRENT MEDICATIONS: Catapres 0.3 patch, DuoNeb, Eliquis 2.5 b.i.d. on hold, folic acid, insulin, Lasix on hold, Lipitor 40, Lopressor 50 b.i.d. not given. No p.o. meds are being given. Cefepime 1 g every 12 hours, Protonix. ASSESSMENT: 1. Acute kidney injury superimposed on chronic kidney disease stage 4, resolving acute kidney injury. Cardiorenal syndrome. Decreased cardiac output, renal hypoperfusion. 2. Hyperkalemia, resolved. 3. Hypernatremia. 4. Hyperalbuminemia, clinically consistent with dehydration. 5. Xkc-oejmark-oczlyfiht diabetes mellitus. 6. Coronary artery disease, coronary artery bypass graft, congestive heart failure, pulmonary hypertension. 7. Severe anemia, occult positive stool, gastrointestinal blood loss plus chronic anemia of chronic kidney disease. 8. Pseudomonas urinary tract infection. 9. Staphylococcus bacteremia. PLAN: 1. Continue to hold Lasix, clinically the patient appears to be intravascularly deplete. 2. Continue to hold Aldactone. 3. Monitor H&H. 4. Blood pressure is severely uncontrolled because the patient is not able to swallow any p.o. meds, continue Catapres patch. Will put her on hydralazine 10 mg IV push every 4 hours. Swallow evaluation. 5. GI followup. 6. We will discuss with Cardiology. 7. Discussed with Dr. Schultz. Doris Antunez MD
--- NOTE | 2018-10-23 18:35 | US ---
Date of service: 10/23/2018 PROCEDURE: Ultrasound of the Kidneys HISTORY: [facility]F COMPARISON: None available. TECHNIQUE: Sonogram of the kidneys. FINDINGS: RIGHT KIDNEY: Measures: 11.0 x 5.0 x 5.5 cm. Echogenic renal parenchyma. 0.8 x 0.7 x 0.9 cm midpole cyst and 2.0 x 1.5 x 1.6 cm lower pole cyst. No obstructing calculus or hydronephrosis identified. LEFT KIDNEY: Measures: 8.4 x 5.5 x 5.7 cm. Echogenic renal parenchyma. No obstructing calculus, hydronephrosis, or renal cyst identified. OTHER FINDINGS: None. IMPRESSION: Echogenic renal parenchyma may be seen in setting of medical renal disease. Right renal cysts.
[2018-10-23 21:24] LABS: INFLUENZA TYPE B AB 1:32 titer (<1:8)
--- NOTE | 2018-10-23 22:42 | CARD ---
APPROVED REPORT Date of service: 10/23/2018 EKG Measurement Heart [id number] <Conclusion> Electronic atrial pacemaker RBBB Possible Inferior infarct, age undetermined ST & T wave abnormalities diffuse Abnormal ECG
[2018-10-24] MEDS: Levalbuterol 1.25 MG/3 ML Inhal Soln UD IH SCH ×4 (01:00→20:30)
[2018-10-24] MEDS: Nicardipine 20 MG/200 ML 20 MG/200 ML BAG IV PRN ×2 (01:39→06:03)
[2018-10-24] MEDS: Propofol 10 mg/ml 1,000 MG/100 ML VIAL IV PRN ×4 (01:40→14:49)
[2018-10-24] MEDS: Midazolam 100 mg/100ml in NS 100 MG/100 ML SOL IV PRN (06:05)
[2018-10-24 06:07] LABS: ARTERIAL BLOOD GAS HCO3 33.2 mmol/L (21-28); ARTERIAL BLOOD GAS HEMOGLOBIN 9.1 g/dL (11.7-17.4); ARTERIAL BLOOD GAS O2 CAPACITY 12.7 mL/dl (16-24); ARTERIAL BLOOD GAS O2 CONTENT 12.7 ML/dl (15-23); ARTERIAL BLOOD GAS O2 SAT 99.7 % (95-98); ARTERIAL BLOOD GAS PCO2 69 mm/Hg (35-45); ARTERIAL BLOOD GAS PH 7.29 (7.35-7.45); ARTERIAL BLOOD GAS TCO2 35.3 mmol.L (22-28)
[2018-10-24 06:45] LABS: BASO # 0.01 K/mm3 (0.0-2.0); BASO % 0.1 % (0.0-3.0); EOS # 0.3 (0.0-0.7); EOS % 4.3 % (1.5-5.0); HEMOGLOBIN 9.7 g/dL (12.0-16.0); LYMPH # 0.4 (1.2-3.4); LYMPH % 5.5 % (22.0-35.0); MEAN CELL VOLUME 92.5 fl (80.0-105.0); MEAN CORPUSCULAR HEMOGLOBIN 29.1 pg (25.0-35.0); MEAN CORPUSCULAR HGB CONC 31.5 g/dl (31.0-37.0); MONO # 0.6 (0.1-0.6); MONO % 7.1 % (1.0-6.0); PLATELET COUNT 160 10^3/uL (120.0-450.0); RBC 3.33 10^6/uL (3.5-6.1); RED CELL DISTRIBUTION WIDTH 17.2 % (11.5-14.5); WHITE BLOOD COUNT 7.9 10^3/uL (4.5-11.0)
[2018-10-24 06:51] LABS: ALB/GLOB RATIO 1.1 (1.1-1.8); ALBUMIN 3.6 g/dL (3.0-4.8); CALCIUM 9.1 mg/dL (8.4-10.5)
[2018-10-24] MEDS: Budesonide 0.5 mg/2 ml Inhal Susp UD IH SCH ×2 (07:00→20:30)
--- NOTE | 2018-10-24 08:20 | CP.CCUPN ---
<Kitty Tovar - Last Filed: 10/24/18 11:38> CCU Subjective - Physician Review Subjective (Free Text): CRITICAL CARE PROGRESS NOTE Kitty Tovar PGY1 73 y/o F with PMHx of HTN, CAD s/p CABG(06/14/14) & cath (05/2015: LAI to LAD, SVG to D1, SVG to OM1, s/p PTCA of occluded RCA), paroxysmal Afib s/p PM placement on home eliquis, mild-mod pulm HTN (RVSP 55mmHg), COPD on home O2, HFpEF, CKD4, NIDDM admitted to ICU for hypercapnic respiratory failure with acute respiratory distress requiring intubation and hypertensive emergency requiring titratable nicardipine gtt Pt seen and examined at bedside this am. No acute events overnight. Pt is sedated, intubated. Unable to obtain ROS Drips: Propofol: 40 mcg/kg/min Midazolam: 5 mg/h Vent: PRVC 420/22/40%/5 CCU Objective - Vital Signs / Intake & Output Vital Signs (Last 4 hours): Vital Signs Resp Pulse Ox 10/24/18 07:04 22 100 Intake and Output (Last 8hrs): Intake & Output 10/23/18 10/24/18 10/24/18 22:59 06:59 14:59 Intake Total 847 483 Output Total 1000 Balance -153 483 Intake: IV 847 483 Left Forearm 150 Right Forearm 200 Right Hand 28 Output: Urine 1000 Urethral ([place]) 1000 - Physical Exam Head: Positive for: Atraumatic, Normocephalic Pupils: Positive for: PERRL, Pinpoint (reactive) Conjunctiva: Positive for: Normal Mouth: Positive for: Moist Mucous Membranes Neck: Negative for: JVD Respiratory/Chest: Positive for: Good Air Exchange (fair air exchange bilaterally), Other (intubated) Cardiovascular: Positive for: Tachycardic (tachycardic but normal rhythm) Abdomen: Positive for: Hernias (reducible umbilical hernia). Negative for: Distention, Peritoneal Signs Upper Extremity: Positive for: Normal Inspection, Cyanosis Lower Extremity: Positive for: Edema (trace edema to bilateral lower extremities) Skin: Positive for: Warm, Dry, Normal Color. Negative for: Rashes - Medications Active Medications: Active Medications Generic Name Dose Route Start Last Admin Trade Name Freq PRN Reason Stop Dose Admin Acetaminophen 650 mg 10/18/18 19:35 10/21/18 16:47 Tylenol 325mg Tab PO 650 mg Q6H PRN Administration Fever >100.4 F Albuterol/Ipratropium 3 ml 10/18/18 19:35 10/19/18 10:38 Duoneb 3 Mg/0.5 Mg (3 Ml) Ud IH 3 ml Q2H PRN Administration Shortness of Breath Amlodipine Besylate 10 mg 10/23/18 12:15 10/23/18 17:31 Norvasc PO 10 mg DAILY CYNDI Administration Apixaban 2.5 mg 10/18/18 19:30 10/21/18 17:07 Eliquis PO 2.5 mg BID CYNDI Administration Protocol Atorvastatin Calcium 40 mg 10/19/18 10:00 10/23/18 10:00 Lipitor PO Not Given DAILY CYNDI Azithromycin 500 mg 10/21/18 10:00 10/23/18 10:06 Zithromax PO 10/26/18 10:01 Not Given DAILY CYNDI Protocol Budesonide 0.5 mg 10/22/18 08:00 10/24/18 07:00 Pulmicort Respules IH 0.5 mg [id number] CYNDI Administration Folic Acid 1 mg 10/19/18 10:00 10/23/18 09:59 Folic Acid PO Not Given DAILY CYNDI Furosemide 40 mg 10/19/18 10:00 10/20/18 09:25 Lasix IVP 40 mg DAILY CYNDI Administration Heparin Sodium (Porcine) 5,000 units 10/23/18 14:30 10/24/18 06:03 Heparin SC 5,000 units Q8 CYNDI Administration Protocol Hydralazine HCl 50 mg 10/22/18 18:00 10/23/18 17:31 Apresoline PO 50 mg BID CYNDI Administration Hydralazine HCl 10 mg 10/23/18 17:33 Apresoline IVP Q4 PRN SBP > 180 Cefepime HCl 1 gm in 100 mls @ 100 mls/hr 10/18/18 22:00 10/23/18 21:13 Maxipime 1gm IVPB 100 mls/hr Q12 CYNDI Administration Protocol Nicardipine HCl 20 mg in 200 mls @ 50 mls/hr 10/23/18 12:16 10/24/18 06:03 Cardene Iv Premix IV 5 mg/hr .Q4H PRN 50 mls/hr TITRATE PER MD ORDER Administration Protocol 5 MG/HR Propofol 1,000 mg in 100 mls @ 2.879 mls/hr 10/23/18 13:33 10/24/18 06:03 Diprivan IV 50 mcg/kg/min .Q24H PRN 28.794 mls/hr TITRATE PER MD ORDER Administration Protocol 5 MCG/KG/MIN Midazolam 100 mg/100ml in NS 100 mg in 100 mls @ 1 mls/hr 10/23/18 14:09 10/24/18 06:05 Midazolam 100 Mg/100ml In Ns IV 7 mg/hr .Q24H PRN 7 mls/hr Sedation Administration Protocol 1 MG/HR Insulin Human Regular 0 units 10/18/18 22:00 10/23/18 21:44 Humulin R High SC Not Given ACHS CYNDI Protocol Levalbuterol HCl 1.25 mg 10/18/18 20:00 10/24/18 07:00 Xopenex IH 1.25 mg [id number] CYNDI Administration Methylprednisolone 40 mg 10/24/18 10:00 Solu-Medrol IVP Q12 CYNDI Metoprolol Tartrate 50 mg 10/18/18 19:30 10/23/18 18:58 Lopressor PO 50 mg BID CYNDI Administration Montelukast Sodium 10 mg 10/18/18 22:00 10/23/18 21:17 Singulair PO 10 mg HS CYNDI Administration Ondansetron HCl 4 mg 10/18/18 19:35 10/19/18 07:55 Zofran Inj IVP 4 mg Q6H PRN Administration Nausea/Vomiting Pantoprazole Sodium 40 mg 10/23/18 07:30 10/23/18 10:05 Protonix Ec Tab PO Not Given ACB CYNDI Pantoprazole Sodium 40 mg 10/23/18 22:00 10/23/18 21:13 Protonix Inj IVP 40 mg Q12 CYNDI Administration Pregabalin 75 mg 10/18/18 19:30 10/23/18 18:55 Lyrica PO Not Given BID CYNDI Sildenafil Citrate 20 mg 10/19/18 10:00 10/23/18 10:05 Revatio PO Not Given BID CYNDI - Patient Studies Lab Studies: Microbiology Studies 10/18/18 17:15 Blood Culture - Final Blood-Venous NO GROWTH AFTER 5 DAYS Gram Stain - Final TEST NOT PERFORMED Lab Studies 10/24/18 10/24/18 10/24/18 Range/Units 07:12 05:48 05:30 WBC (4.5-11.0) 10^3/uL RBC (3.5-6.1) 10^6/uL Hgb (12.0-16.0) g/dL Hct (36.0-48.0) % MCV (80.0-105.0) fl MCH (25.0-35.0) pg MCHC (31.0-37.0) g/dl RDW (11.5-14.5) % Plt Count (120.0-450.0) 10^3/uL Neut % (Auto) (50.0-68.0) % Lymph % (Auto) (22.0-35.0) % [place] % (Auto) (1.0-6.0) % Eos % (Auto) (1.5-5.0) % Baso % (Auto) (0.0-3.0) % Lymph # (Auto) (1.2-3.4) [place] # (Auto) (0.1-0.6) Eos # (Auto) (0.0-0.7) Baso # (Auto) (0.0-2.0) K/mm3 Absolute Neuts (auto) (1.4-6.5) PT (9.4-12.5) SECONDS INR APTT (26.9-38.3) Seconds pCO2 69 H (35-45) mm/Hg pO2 137.0 H (80-100) mm/Hg HCO3 33.2 H (21-28) mmol/L ABG pH 7.29 L (7.35-7.45) ABG Total CO2 35.3 H (22-28) mmol.L ABG O2 Saturation 99.7 H (95-98) % ABG O2 Content 12.7 L (15-23) ML/dl ABG Base Excess 5.3 H (-2.0-3.0) mmol/L ABG Hemoglobin 9.1 L (11.7-17.4) g/dL ABG Carboxyhemoglobin 2.2 H (0.5-1.5) % POC ABG HHb (Measured) 0.3 (0-5) % ABG Methemoglobin 0.8 (0.0-3.0) % ABG O2 Capacity 12.7 L (16-24) mL/dl Hgb O2 Saturation 96.7 (95.0-98.0) % FiO2 50.0 % Crit Value Called To Dr. boyd Crit Value Called By Maxim Blood Gas Notified Time 608 Sodium 145 (132-148) mmol/L Potassium 3.9 (3.6-5.0) mmol/L Chloride 106 (98-107) mmol/L Carbon Dioxide 30 (21-33) mmol/L Anion Gap 13 (10-20) BUN 68 H (7-21) mg/dL Creatinine 1.8 H (0.7-1.2) mg/dl Est GFR ( Amer) 33 Est GFR (Non-Af Amer) 27 POC Glucose (mg/dL) 217 H (65-110) mg/dL Random Glucose 232 H (70-110) mg/dL Calcium 9.1 (8.4-10.5) mg/dL Phosphorus 3.3 (2.5-4.5) mg/dL Magnesium 2.3 H (1.7-2.2) mg/dL Total Bilirubin 0.3 (0.2-1.3) mg/dL AST 19 (14-36) U/L ALT 20 (7-56) U/L Alkaline Phosphatase 65 (38-126) U/L Total Protein 6.8 (5.8-8.3) g/dL Albumin 3.6 (3.0-4.8) g/dL Globulin 3.2 gm/dL Albumin/Globulin Ratio 1.1 (1.1-1.8) Procalcitonin (0.19-0.49) NG/ML ANCA Screen (NEGATIVE) c-ANCA Titer Proteinase 3 (PR3) (<1.0) AI p-ANCA Titer Atypical p-ANCA Titer Myeloperoxidase Ab (<1.0) AI Influenza Type A Ab (<1:8) titer Influenza Type B Ab (<1:8) titer 10/24/18 10/23/18 10/23/18 Range/Units 05:30 21:05 18:14 WBC 7.9 D (4.5-11.0) 10^3/uL RBC 3.33 L (3.5-6.1) 10^6/uL Hgb 9.7 L (12.0-16.0) g/dL Hct 30.8 L (36.0-48.0) % MCV 92.5 (80.0-105.0) fl MCH 29.1 (25.0-35.0) pg MCHC 31.5 (31.0-37.0) g/dl RDW 17.2 H (11.5-14.5) % Plt Count 160 (120.0-450.0) 10^3/uL Neut % (Auto) 83.0 H (50.0-68.0) % Lymph % (Auto) 5.5 L (22.0-35.0) % [place] % (Auto) 7.1 H (1.0-6.0) % Eos % (Auto) 4.3 (1.5-5.0) % Baso % (Auto) 0.1 (0.0-3.0) % Lymph # (Auto) 0.4 L (1.2-3.4) [place] # (Auto) 0.6 (0.1-0.6) Eos # (Auto) 0.3 (0.0-0.7) Baso # (Auto) 0.01 (0.0-2.0) K/mm3 Absolute Neuts (auto) 6.52 H (1.4-6.5) PT (9.4-12.5) SECONDS INR APTT (26.9-38.3) Seconds pCO2 (35-45) mm/Hg pO2 (80-100) mm/Hg HCO3 (21-28) mmol/L ABG pH (7.35-7.45) ABG Total CO2 (22-28) mmol.L ABG O2 Saturation (95-98) % ABG O2 Content (15-23) ML/dl ABG Base Excess (-2.0-3.0) mmol/L ABG Hemoglobin (11.7-17.4) g/dL ABG Carboxyhemoglobin (0.5-1.5) % POC ABG HHb (Measured) (0-5) % ABG Methemoglobin (0.0-3.0) % ABG O2 Capacity (16-24) mL/dl Hgb O2 Saturation (95.0-98.0) % FiO2 % Crit Value Called To Crit Value Called By Blood Gas Notified Time Sodium (132-148) mmol/L Potassium (3.6-5.0) mmol/L Chloride (98-107) mmol/L Carbon Dioxide (21-33) mmol/L Anion Gap (10-20) BUN (7-21) mg/dL Creatinine (0.7-1.2) mg/dl Est GFR ( Amer) Est GFR (Non-Af Amer) POC Glucose (mg/dL) 283 H 289 H (65-110) mg/dL Random Glucose (70-110) mg/dL Calcium (8.4-10.5) mg/dL Phosphorus (2.5-4.5) mg/dL Magnesium (1.7-2.2) mg/dL Total Bilirubin (0.2-1.3) mg/dL AST (14-36) U/L ALT (7-56) U/L Alkaline Phosphatase (38-126) U/L Total Protein (5.8-8.3) g/dL Albumin (3.0-4.8) g/dL Globulin gm/dL Albumin/Globulin Ratio (1.1-1.8) Procalcitonin (0.19-0.49) NG/ML ANCA Screen (NEGATIVE) c-ANCA Titer Proteinase 3 (PR3) (<1.0) AI p-ANCA Titer Atypical p-ANCA Titer Myeloperoxidase Ab (<1.0) AI Influenza Type A Ab (<1:8) titer Influenza Type B Ab (<1:8) titer 10/23/18 10/23/18 10/23/18 Range/Units 15:45 14:00 14:00 WBC (4.5-11.0) 10^3/uL RBC (3.5-6.1) 10^6/uL Hgb (12.0-16.0) g/dL Hct (36.0-48.0) % MCV (80.0-105.0) fl MCH (25.0-35.0) pg MCHC (31.0-37.0) g/dl RDW (11.5-14.5) % Plt Count (120.0-450.0) 10^3/uL Neut % (Auto) (50.0-68.0) % Lymph % (Auto) (22.0-35.0) % [place] % (Auto) (1.0-6.0) % Eos % (Auto) (1.5-5.0) % Baso % (Auto) (0.0-3.0) % Lymph # (Auto) (1.2-3.4) [place] # (Auto) (0.1-0.6) Eos # (Auto) (0.0-0.7) Baso # (Auto) (0.0-2.0) K/mm3 Absolute Neuts (auto) (1.4-6.5) PT 14.8 H (9.4-12.5) SECONDS INR 1.33 APTT 26.6 L (26.9-38.3) Seconds pCO2 69 H (35-45) mm/Hg pO2 136.0 H (80-100) mm/Hg HCO3 35.6 H (21-28) mmol/L ABG pH 7.32 L (7.35-7.45) ABG Total CO2 37.7 H (22-28) mmol.L ABG O2 Saturation 99.7 H (95-98) % ABG O2 Content 12.3 L (15-23) ML/dl ABG Base Excess 8.0 H (-2.0-3.0) mmol/L ABG Hemoglobin 8.9 L (11.7-17.4) g/dL ABG Carboxyhemoglobin 2.4 H (0.5-1.5) % POC ABG HHb (Measured) 0.3 (0-5) % ABG Methemoglobin 1.4 (0.0-3.0) % ABG O2 Capacity 12.3 L (16-24) mL/dl Hgb O2 Saturation 96.0 (95.0-98.0) % FiO2 60.0 % Crit Value Called To Crit Value Called By García Blood Gas Notified Time 1551 Sodium (132-148) mmol/L Potassium (3.6-5.0) mmol/L Chloride (98-107) mmol/L Carbon Dioxide (21-33) mmol/L Anion Gap (10-20) BUN (7-21) mg/dL Creatinine (0.7-1.2) mg/dl Est GFR ( Amer) Est GFR (Non-Af Amer) POC Glucose (mg/dL) (65-110) mg/dL Random Glucose (70-110) mg/dL Calcium (8.4-10.5) mg/dL Phosphorus (2.5-4.5) mg/dL Magnesium (1.7-2.2) mg/dL Total Bilirubin (0.2-1.3) mg/dL AST (14-36) U/L ALT (7-56) U/L Alkaline Phosphatase (38-126) U/L Total Protein (5.8-8.3) g/dL Albumin (3.0-4.8) g/dL Globulin gm/dL Albumin/Globulin Ratio (1.1-1.8) Procalcitonin 1.88 H (0.19-0.49) NG/ML ANCA Screen (NEGATIVE) c-ANCA Titer Proteinase 3 (PR3) (<1.0) AI p-ANCA Titer Atypical p-ANCA Titer Myeloperoxidase Ab (<1.0) AI Influenza Type A Ab (<1:8) titer Influenza Type B Ab (<1:8) titer 10/19/18 10/19/18 Range/Units 07:00 07:00 WBC (4.5-11.0) 10^3/uL RBC (3.5-6.1) 10^6/uL Hgb (12.0-16.0) g/dL Hct (36.0-48.0) % MCV (80.0-105.0) fl MCH (25.0-35.0) pg MCHC (31.0-37.0) g/dl RDW (11.5-14.5) % Plt Count (120.0-450.0) 10^3/uL Neut % (Auto) (50.0-68.0) % Lymph % (Auto) (22.0-35.0) % [place] % (Auto) (1.0-6.0) % Eos % (Auto) (1.5-5.0) % Baso % (Auto) (0.0-3.0) % Lymph # (Auto) (1.2-3.4) [place] # (Auto) (0.1-0.6) Eos # (Auto) (0.0-0.7) Baso # (Auto) (0.0-2.0) K/mm3 Absolute Neuts (auto) (1.4-6.5) PT (9.4-12.5) SECONDS INR APTT (26.9-38.3) Seconds pCO2 (35-45) mm/Hg pO2 (80-100) mm/Hg HCO3 (21-28) mmol/L ABG pH (7.35-7.45) ABG Total CO2 (22-28) mmol.L ABG O2 Saturation (95-98) % ABG O2 Content (15-23) ML/dl ABG Base Excess (-2.0-3.0) mmol/L ABG Hemoglobin (11.7-17.4) g/dL ABG Carboxyhemoglobin (0.5-1.5) % POC ABG HHb (Measured) (0-5) % ABG Methemoglobin (0.0-3.0) % ABG O2 Capacity (16-24) mL/dl Hgb O2 Saturation (95.0-98.0) % FiO2 % Crit Value Called To Crit Value Called By Blood Gas Notified Time Sodium (132-148) mmol/L Potassium (3.6-5.0) mmol/L Chloride (98-107) mmol/L Carbon Dioxide (21-33) mmol/L Anion Gap (10-20) BUN (7-21) mg/dL Creatinine (0.7-1.2) mg/dl Est GFR ( Amer) Est GFR (Non-Af Amer) POC Glucose (mg/dL) (65-110) mg/dL Random Glucose (70-110) mg/dL Calcium (8.4-10.5) mg/dL Phosphorus (2.5-4.5) mg/dL Magnesium (1.7-2.2) mg/dL Total Bilirubin (0.2-1.3) mg/dL AST (14-36) U/L ALT (7-56) U/L Alkaline Phosphatase (38-126) U/L Total Protein (5.8-8.3) g/dL Albumin (3.0-4.8) g/dL Globulin gm/dL Albumin/Globulin Ratio (1.1-1.8) Procalcitonin (0.19-0.49) NG/ML ANCA Screen Negative (NEGATIVE) c-ANCA Titer TNP Proteinase 3 (PR3) <1.0 (<1.0) AI p-ANCA Titer TNP Atypical p-ANCA Titer TNP Myeloperoxidase Ab <1.0 (<1.0) AI Influenza Type A Ab 1:64 H (<1:8) titer Influenza Type B Ab 1:32 H (<1:8) titer Laboratory Results - last 24 hr 10/19/18 10/19/18 10/23/18 07:00 07:00 14:00 WBC RBC Hgb Hct MCV MCH MCHC RDW Plt Count Neut % (Auto) Lymph % (Auto) [place] % (Auto) Eos % (Auto) Baso % (Auto) Lymph # (Auto) [place] # (Auto) Eos # (Auto) Baso # (Auto) Absolute Neuts (auto) PT INR APTT pCO2 pO2 HCO3 ABG pH ABG Total CO2 ABG O2 Saturation ABG O2 Content ABG Base Excess ABG Hemoglobin ABG Carboxyhemoglobin POC ABG HHb (Measured) ABG Methemoglobin ABG O2 Capacity Hgb O2 Saturation FiO2 Crit Value Called To Crit Value Called By Blood Gas Notified Time Sodium Potassium Chloride Carbon Dioxide Anion Gap BUN Creatinine Est GFR ( Amer) Est GFR (Non-Af Amer) POC Glucose (mg/dL) Random Glucose Calcium Phosphorus Magnesium Total Bilirubin AST ALT Alkaline Phosphatase Total Protein Albumin Globulin Albumin/Globulin Ratio Procalcitonin 1.88 H ANCA Screen Negative c-ANCA Titer TNP Proteinase 3 (PR3) <1.0 p-ANCA Titer TNP Atypical p-ANCA Titer TNP Myeloperoxidase Ab <1.0 Influenza Type A Ab 1:64 H Influenza Type B Ab 1:32 H 10/23/18 10/23/18 10/23/18 14:00 15:45 18:14 WBC RBC Hgb Hct MCV MCH MCHC RDW Plt Count Neut % (Auto) Lymph % (Auto) [place] % (Auto) Eos % (Auto) Baso % (Auto) Lymph # (Auto) [place] # (Auto) Eos # (Auto) Baso # (Auto) Absolute Neuts (auto) PT 14.8 H INR 1.33 APTT 26.6 L pCO2 69 H pO2 136.0 H HCO3 35.6 H ABG pH 7.32 L ABG Total CO2 37.7 H ABG O2 Saturation 99.7 H ABG O2 Content 12.3 L ABG Base Excess 8.0 H ABG Hemoglobin 8.9 L ABG Carboxyhemoglobin 2.4 H POC ABG HHb (Measured) 0.3 ABG Methemoglobin 1.4 ABG O2 Capacity 12.3 L Hgb O2 Saturation 96.0 FiO2 60.0 Crit Value Called To Crit Value Called By García Blood Gas Notified Time 1555 Sodium Potassium Chloride Carbon Dioxide Anion Gap BUN Creatinine Est GFR ( Amer) Est GFR (Non-Af Amer) POC Glucose (mg/dL) 289 H Random Glucose Calcium Phosphorus Magnesium Total Bilirubin AST ALT Alkaline Phosphatase Total Protein Albumin Globulin Albumin/Globulin Ratio Procalcitonin ANCA Screen c-ANCA Titer Proteinase 3 (PR3) p-ANCA Titer Atypical p-ANCA Titer Myeloperoxidase Ab Influenza Type A Ab Influenza Type B Ab 10/23/18 10/24/18 10/24/18 21:05 05:30 05:30 WBC 7.9 D RBC 3.33 L Hgb 9.7 L Hct 30.8 L MCV 92.5 MCH 29.1 MCHC 31.5 RDW 17.2 H Plt Count 160 Neut % (Auto) 83.0 H Lymph % (Auto) 5.5 L [place] % (Auto) 7.1 H Eos % (Auto) 4.3 Baso % (Auto) 0.1 Lymph # (Auto) 0.4 L [place] # (Auto) 0.6 Eos # (Auto) 0.3 Baso # (Auto) 0.01 Absolute Neuts (auto) 6.52 H PT INR APTT pCO2 pO2 HCO3 ABG pH ABG Total CO2 ABG O2 Saturation ABG O2 Content ABG Base Excess ABG Hemoglobin ABG Carboxyhemoglobin POC ABG HHb (Measured) ABG Methemoglobin ABG O2 Capacity Hgb O2 Saturation FiO2 Crit Value Called To Crit Value Called By Blood Gas Notified Time Sodium 145 Potassium 3.9 Chloride 106 Carbon Dioxide 30 Anion Gap 13 BUN 68 H Creatinine 1.8 H Est GFR ( Amer) 33 Est GFR (Non-Af Amer) 27 POC Glucose (mg/dL) 283 H Random Glucose 232 H Calcium 9.1 Phosphorus 3.3 Magnesium 2.3 H Total Bilirubin 0.3 AST 19 ALT 20 Alkaline Phosphatase 65 Total Protein 6.8 Albumin 3.6 Globulin 3.2 Albumin/Globulin Ratio 1.1 Procalcitonin ANCA Screen c-ANCA Titer Proteinase 3 (PR3) p-ANCA Titer Atypical p-ANCA Titer Myeloperoxidase Ab Influenza Type A Ab Influenza Type B Ab 10/24/18 10/24/18 05:48 07:12 WBC RBC Hgb Hct MCV MCH MCHC RDW Plt Count Neut % (Auto) Lymph % (Auto) [place] % (Auto) Eos % (Auto) Baso % (Auto) Lymph # (Auto) [place] # (Auto) Eos # (Auto) Baso # (Auto) Absolute Neuts (auto) PT INR APTT pCO2 69 H pO2 137.0 H HCO3 33.2 H ABG pH 7.29 L ABG Total CO2 35.3 H ABG O2 Saturation 99.7 H ABG O2 Content 12.7 L ABG Base Excess 5.3 H ABG Hemoglobin 9.1 L ABG Carboxyhemoglobin 2.2 H POC ABG HHb (Measured) 0.3 ABG Methemoglobin 0.8 ABG O2 Capacity 12.7 L Hgb O2 Saturation 96.7 FiO2 50.0 Crit Value Called To Dr. boyd Crit Value Called By Maxim Blood Gas Notified Time 608 Sodium Potassium Chloride Carbon Dioxide Anion Gap BUN Creatinine Est GFR ( Amer) Est GFR (Non-Af Amer) POC Glucose (mg/dL) 217 H Random Glucose Calcium Phosphorus Magnesium Total Bilirubin AST ALT Alkaline Phosphatase Total Protein Albumin Globulin Albumin/Globulin Ratio Procalcitonin ANCA Screen c-ANCA Titer Proteinase 3 (PR3) p-ANCA Titer Atypical p-ANCA Titer Myeloperoxidase Ab Influenza Type A Ab Influenza Type B Ab Radiology Impressions: Radiology Impressions Renal Ultrasound 10/22/18 17:16 IMPRESSION: Echogenic renal parenchyma may be seen in setting of medical renal disease. Right renal cysts. Chest X-Ray 10/23/18 12:25 IMPRESSION: Mild to moderate cardiomegaly moderate vascular congestion Chest X-Ray 10/23/18 13:17 IMPRESSION: Satisfactory position of recently placed endotracheal tube. Acceptable but suboptimal position nasogastric tube. EKG/Cardiology Studies: Cardiology / EKG Studies 10/23/18 12:31 EKG [ELECTROCARDIOGRAM] Stat Comment: Reason For Exam: tachycardia, HTN Fingerstick Blood Sugar Results: 283 Review of Systems - Review of Systems Review of Systems: unable to obtain Critical Care Progress Note - Ventilator Checklist Head of Bed 30 Degrees: Yes Daily Sedation Vacation: Yes Daily Assessment of Readiness to Wean: Yes Daily Spontaneous Breathing Trial: Yes PUD Prophalyxis: Yes DVT Prophylaxis: Yes Oral Care with Chlorhexidine Gluconate {CHG}: Yes - Vent Settings MODE:: PRVC - Extremities/Vascular Does the Patient have a Central Venous Catheter?: No - Prophylaxis GI Prophylaxis GI: PPI - Prophylaxis DVT Prophylaxis DVT: Heparin SQ - Nutrition Nutrition: Nutrition Category Date Time Status Heart Healthy Diet [DIET] Diets 10/18/18 Breakfast Active Assessment/Plan - Assessment and Plan (Free Text) Assessment: 73 y/o F with PMHx of HTN, CAD s/p CABG(06/14/14) & cath (05/2015: LAI to LAD, SVG to D1, SVG to OM1, s/p PTCA of occluded RCA), paroxysmal Afib s/p PM placement on home eliquis, mild-mod pulm HTN (RVSP 55mmHg), COPD on home O2, HFpEF, CKD4, NIDDM admitted to ICU for hypertensive emergency complicated by ventilator dependent hypercapnic respiratory failure in the setting of cardiorenal syndrome Plan: Neuro: AMS -2/2 toxic metabolic encephalopathy in the setting of RLL pneumonia -CT head pending radiologist impression -Pt sedated/intubated with propofol/midazolam. Will attempt to wean down on pr opofol -Continue daily sedation vacation Cardiovascular: Hypertensive emergency -continue nicardipine titratable gtt. Currently not requiring gtt -continue home amlodipine, metoprolol -continue hydralazine po cyndi and IV prn per cardio recs -will consider resuming home lisinopril if HTN still uncontrolled -clonidine patch was removed upon start of nicardipine drip -lasix/spironolactone/lisinopril on hold d/t SPRING Acute on Chronic HFpEF -reduce cardiac output d/t diastolic dysfunction, causing cardiorenal syndrome -currently holding lasix/spironolactone d/t SPRING CAD s/p CABG -not a candidate for cardiac cath d/t SPRING -continue home atorvastatin, Paroxysmal Atrial Fibrillation w/ RA/RV pacemaker -continue home metoprolol for rate control, eliquis on hold per primary -pacemaker interrogation done recently, per osiris Mild-Moderate TR/MR RVSP 55mmHg with mild-mod dilation of RV. RVSF mil-mod reduced. PM in RA/RV -continue home sildenafil to reduce R sided afterload, continue antihypertensives to reduce L sided afterload Pulm: Hypercapnic Respiratory Failure -Requiring ventilator support on PRVC -Pt persistently hypercapnic today, will increase rate -continue daily ABGs -continue VAP bundle: HOB>40 degrees, GI/DVT Ppx, daily mouth care with chlorhexidine, daily sedation vacation/weaning trials RLL Pneumonia -continue azithromycin for atypical coverage, -completed course of cefepime -ID following Mild-Moderate Pulmonary Hypertension -continue home sildenafil Acute on Chronic COPD Exacerbation -budesonide IH, xopenex cyndi, continue duoneb prn & home montelukast -continue solu-medrol 40mg IVP Q12 per pulm recs -continue azithromycin, completed cefepime course GI: Abdominal Pain -OG tube in place. Pt was unable to tolerate po meds prior to intubation. Will continue administering oral medications via OGT -GI following -CT Abd/Pelvis w/ po contrast pending /Renal: SPRING on CKD4 -2/2 cardiorenal syndrome -will continue to hold lasix/spironolactone ID: RLL Pneumonia -continue po azithromycin -completed course of cefepime -procalcitonin dowtrending -ID following Heme: Normocytic Anemia -Likely 2/2 from stool occult blood. s/p 1u pRBC 10/21/18 -continue to hold eliquis/NSAIDs -continue PPI -will repeat CT Abdomen with oral contrast when more stable -GI following. No plans for endoscopy currently as there aren't signs of active bleeding Endocrine: NIDDM -continue sliding scale insulin F/E/N: -Holding fluids given cardiorenal syndrome/correct electrolytes prn/Currently NPO, will consider tube feeds if unable to extubate GI/DVT: protonix/Hep SQ Case seen, examined and discussed with attending physician, Dr. Zafar. Further recs per him Kitty Tovar PGY1 <Sarai Zafar - Last Filed: 10/24/18 17:07> CCU Objective - Vital Signs / Intake & Output Vital Signs (Last 4 hours): Vital Signs Pulse BP Pulse Ox 10/24/18 14:30 115 H 119/52 L 99 03/07/19 14:20 112 H 99 10/24/18 14:10 115 H 99 10/24/18 14:00 115 H 124/54 L 99 10/24/18 13:50 115 H 99 10/24/18 13:40 115 H 99 10/24/18 13:30 115 H 135/61 100 10/24/18 13:20 114 H 100 10/24/18 13:10 111 H 100 Intake and Output (Last 8hrs): Intake & Output 10/24/18 10/24/18 10/24/18 06:59 14:59 22:59 Intake Total 483 250 Output Total 700 Balance -217 250 Intake: IV 483 250 Output: Urine 700 Urethral ([place]) 700 - Medications Active Medications: Active Medications Generic Name Dose Route Start Last Admin Trade Name Freq PRN Reason Stop Dose Admin Acetaminophen 650 mg 10/18/18 19:35 10/21/18 16:47 Tylenol 325mg Tab PO 650 mg Q6H PRN Administration Fever >100.4 F Albuterol/Ipratropium 3 ml 10/18/18 19:35 10/19/18 10:38 Duoneb 3 Mg/0.5 Mg (3 Ml) Ud IH 3 ml Q2H PRN Administration Shortness of Breath Amlodipine Besylate 10 mg 10/23/18 12:15 10/24/18 09:44 Norvasc PO 10 mg DAILY CYNDI Administration Apixaban 2.5 mg 10/18/18 19:30 10/21/18 17:07 Eliquis PO 2.5 mg BID CYNDI Administration Protocol Atorvastatin Calcium 40 mg 10/19/18 10:00 10/24/18 09:44 Lipitor PO 40 mg DAILY CYNDI Administration Budesonide 0.5 mg 10/22/18 08:00 10/24/18 07:00 Pulmicort Respules IH 0.5 mg [id number] CYNDI Administration Folic Acid 1 mg 10/19/18 10:00 10/24/18 09:45 Folic Acid PO 1 mg DAILY CYNDI Administration Furosemide 40 mg 10/19/18 10:00 10/20/18 09:25 Lasix IVP 40 mg DAILY CYNDI Administration Heparin Sodium (Porcine) 5,000 units 10/23/18 14:30 10/24/18 13:19 Heparin SC 5,000 units Q8 CYNDI Administration Protocol Hydralazine HCl 50 mg 10/22/18 18:00 10/24/18 09:44 Apresoline PO 50 mg BID CYNDI Administration Hydralazine HCl 10 mg 10/23/18 17:33 Apresoline IVP Q4 PRN SBP > 180 Nicardipine HCl 20 mg in 200 mls @ 50 mls/hr 10/23/18 12:16 10/24/18 07:15 Cardene Iv Premix IV 0 mg/hr .Q4H PRN 0 mls/hr TITRATE PER MD ORDER Titration Protocol 5 MG/HR Propofol 1,000 mg in 100 mls @ 2.879 mls/hr 10/23/18 13:33 10/24/18 14:49 Diprivan IV 50 mcg/kg/min .Q24H PRN 28.794 mls/hr TITRATE PER MD ORDER Administration Protocol 5 MCG/KG/MIN Midazolam 100 mg/100ml in NS 100 mg in 100 mls @ 1 mls/hr 10/23/18 14:09 10/24/18 06:05 Midazolam 100 Mg/100ml In Ns IV 7 mg/hr .Q24H PRN 7 mls/hr Sedation Administration Protocol 1 MG/HR Meropenem 250 mg/ Sodium 100 mls @ 100 mls/hr 10/24/18 10:15 10/24/18 10:41 Chloride IVPB 10/31/18 10:16 100 mls/hr Q12H CYNDI Administration Protocol Insulin Human Regular 0 units 10/18/18 22:00 10/24/18 12:10 Humulin R High SC Not Given ACHS CYNDI Protocol Levalbuterol HCl 1.25 mg 10/18/18 20:00 10/24/18 13:11 Xopenex IH 1.25 mg [id number] CYNDI Administration Methylprednisolone 40 mg 10/24/18 10:00 10/24/18 09:45 Solu-Medrol IVP 40 mg Q12 CYNDI Administration Metoprolol Tartrate 50 mg 10/18/18 19:30 10/24/18 09:44 Lopressor PO 50 mg BID CYNDI Administration Montelukast Sodium 10 mg 10/18/18 22:00 10/23/18 21:17 Singulair PO 10 mg HS CYNDI Administration Ondansetron HCl 4 mg 10/18/18 19:35 10/19/18 07:55 Zofran Inj IVP 4 mg Q6H PRN Administration Nausea/Vomiting Pantoprazole Sodium 40 mg 10/23/18 07:30 10/24/18 08:27 Protonix Ec Tab PO 40 mg ACB CYNDI Administration Pregabalin 75 mg 10/18/18 19:30 10/24/18 09:45 Lyrica PO 75 mg BID CYNDI Administration Sildenafil Citrate 20 mg 10/19/18 10:00 10/24/18 09:45 Revatio PO 20 mg BID CYNDI Administration Verapamil HCl 2.5 mg 10/24/18 12:34 Verapamil Inj IVP Q6H PRN for Heart rate >120 - Patient Studies Lab Studies: Microbiology Studies 10/23/18 14:00 Blood Culture - Preliminary Blood NO GROWTH AFTER 24 HOURS 10/18/18 17:15 Blood Culture - Final Blood-Venous NO GROWTH AFTER 5 DAYS Gram Stain - Final TEST NOT PERFORMED Lab Studies 10/24/18 10/24/18 10/24/18 Range/Units 10:15 07:12 05:48 WBC (4.5-11.0) 10^3/uL RBC (3.5-6.1) 10^6/uL Hgb (12.0-16.0) g/dL Hct (36.0-48.0) % MCV (80.0-105.0) fl MCH (25.0-35.0) pg MCHC (31.0-37.0) g/dl RDW (11.5-14.5) % Plt Count (120.0-450.0) 10^3/uL Neut % (Auto) (50.0-68.0) % Lymph % (Auto) (22.0-35.0) % [place] % (Auto) (1.0-6.0) % Eos % (Auto) (1.5-5.0) % Baso % (Auto) (0.0-3.0) % Lymph # (Auto) (1.2-3.4) [place] # (Auto) (0.1-0.6) Eos # (Auto) (0.0-0.7) Baso # (Auto) (0.0-2.0) K/mm3 Absolute Neuts (auto) (1.4-6.5) pCO2 69 H (35-45) mm/Hg pO2 137.0 H (80-100) mm/Hg HCO3 33.2 H (21-28) mmol/L ABG pH 7.29 L (7.35-7.45) ABG Total CO2 35.3 H (22-28) mmol.L ABG O2 Saturation 99.7 H (95-98) % ABG O2 Content 12.7 L (15-23) ML/dl ABG Base Excess 5.3 H (-2.0-3.0) mmol/L ABG Hemoglobin 9.1 L (11.7-17.4) g/dL ABG Carboxyhemoglobin 2.2 H (0.5-1.5) % POC ABG HHb (Measured) 0.3 (0-5) % ABG Methemoglobin 0.8 (0.0-3.0) % ABG O2 Capacity 12.7 L (16-24) mL/dl Hgb O2 Saturation 96.7 (95.0-98.0) % FiO2 50.0 % Crit Value Called To Dr. boyd Crit Value Called By Maxim Blood Gas Notified Time 608 Sodium (132-148) mmol/L Potassium (3.6-5.0) mmol/L Chloride (98-107) mmol/L Carbon Dioxide (21-33) mmol/L Anion Gap (10-20) BUN (7-21) mg/dL Creatinine (0.7-1.2) mg/dl Est GFR ( Amer) Est GFR (Non-Af Amer) POC Glucose (mg/dL) 217 H (65-110) mg/dL Random Glucose (70-110) mg/dL Calcium (8.4-10.5) mg/dL Phosphorus (2.5-4.5) mg/dL Magnesium (1.7-2.2) mg/dL Total Bilirubin (0.2-1.3) mg/dL AST (14-36) U/L ALT (7-56) U/L Alkaline Phosphatase (38-126) U/L Total Protein (5.8-8.3) g/dL Albumin (3.0-4.8) g/dL Globulin gm/dL Albumin/Globulin Ratio (1.1-1.8) Procalcitonin 2.95 H (0.19-0.49) NG/ML Influenza Type A Ab (<1:8) titer Influenza Type B Ab (<1:8) titer Crossmatch 10/24/18 10/24/18 10/23/18 Range/Units 05:30 05:30 21:05 WBC 7.9 D (4.5-11.0) 10^3/uL RBC 3.33 L (3.5-6.1) 10^6/uL Hgb 9.7 L (12.0-16.0) g/dL Hct 30.8 L (36.0-48.0) % MCV 92.5 (80.0-105.0) fl MCH 29.1 (25.0-35.0) pg MCHC 31.5 (31.0-37.0) g/dl RDW 17.2 H (11.5-14.5) % Plt Count 160 (120.0-450.0) 10^3/uL Neut % (Auto) 83.0 H (50.0-68.0) % Lymph % (Auto) 5.5 L (22.0-35.0) % [place] % (Auto) 7.1 H (1.0-6.0) % Eos % (Auto) 4.3 (1.5-5.0) % Baso % (Auto) 0.1 (0.0-3.0) % Lymph # (Auto) 0.4 L (1.2-3.4) [place] # (Auto) 0.6 (0.1-0.6) Eos # (Auto) 0.3 (0.0-0.7) Baso # (Auto) 0.01 (0.0-2.0) K/mm3 Absolute Neuts (auto) 6.52 H (1.4-6.5) pCO2 (35-45) mm/Hg pO2 (80-100) mm/Hg HCO3 (21-28) mmol/L ABG pH (7.35-7.45) ABG Total CO2 (22-28) mmol.L ABG O2 Saturation (95-98) % ABG O2 Content (15-23) ML/dl ABG Base Excess (-2.0-3.0) mmol/L ABG Hemoglobin (11.7-17.4) g/dL ABG Carboxyhemoglobin (0.5-1.5) % POC ABG HHb (Measured) (0-5) % ABG Methemoglobin (0.0-3.0) % ABG O2 Capacity (16-24) mL/dl Hgb O2 Saturation (95.0-98.0) % FiO2 % Crit Value Called To Crit Value Called By Blood Gas Notified Time Sodium 145 (132-148) mmol/L Potassium 3.9 (3.6-5.0) mmol/L Chloride 106 (98-107) mmol/L Carbon Dioxide 30 (21-33) mmol/L Anion Gap 13 (10-20) BUN 68 H (7-21) mg/dL Creatinine 1.8 H (0.7-1.2) mg/dl Est GFR ( Amer) 33 Est GFR (Non-Af Amer) 27 POC Glucose (mg/dL) 283 H (65-110) mg/dL Random Glucose 232 H (70-110) mg/dL Calcium 9.1 (8.4-10.5) mg/dL Phosphorus 3.3 (2.5-4.5) mg/dL Magnesium 2.3 H (1.7-2.2) mg/dL Total Bilirubin 0.3 (0.2-1.3) mg/dL AST 19 (14-36) U/L ALT 20 (7-56) U/L Alkaline Phosphatase 65 (38-126) U/L Total Protein 6.8 (5.8-8.3) g/dL Albumin 3.6 (3.0-4.8) g/dL Globulin 3.2 gm/dL Albumin/Globulin Ratio 1.1 (1.1-1.8) Procalcitonin (0.19-0.49) NG/ML Influenza Type A Ab (<1:8) titer Influenza Type B Ab (<1:8) titer Crossmatch 10/23/18 10/23/18 10/21/18 Range/Units 18:14 14:00 12:00 WBC (4.5-11.0) 10^3/uL RBC (3.5-6.1) 10^6/uL Hgb (12.0-16.0) g/dL Hct (36.0-48.0) % MCV (80.0-105.0) fl MCH (25.0-35.0) pg MCHC (31.0-37.0) g/dl RDW (11.5-14.5) % Plt Count (120.0-450.0) 10^3/uL Neut % (Auto) (50.0-68.0) % Lymph % (Auto) (22.0-35.0) % [place] % (Auto) (1.0-6.0) % Eos % (Auto) (1.5-5.0) % Baso % (Auto) (0.0-3.0) % Lymph # (Auto) (1.2-3.4) [place] # (Auto) (0.1-0.6) Eos # (Auto) (0.0-0.7) Baso # (Auto) (0.0-2.0) K/mm3 Absolute Neuts (auto) (1.4-6.5) pCO2 (35-45) mm/Hg pO2 (80-100) mm/Hg HCO3 (21-28) mmol/L ABG pH (7.35-7.45) ABG Total CO2 (22-28) mmol.L ABG O2 Saturation (95-98) % ABG O2 Content (15-23) ML/dl ABG Base Excess (-2.0-3.0) mmol/L ABG Hemoglobin (11.7-17.4) g/dL ABG Carboxyhemoglobin (0.5-1.5) % POC ABG HHb (Measured) (0-5) % ABG Methemoglobin (0.0-3.0) % ABG O2 Capacity (16-24) mL/dl Hgb O2 Saturation (95.0-98.0) % FiO2 % Crit Value Called To Crit Value Called By Blood Gas Notified Time Sodium (132-148) mmol/L Potassium (3.6-5.0) mmol/L Chloride (98-107) mmol/L Carbon Dioxide (21-33) mmol/L Anion Gap (10-20) BUN (7-21) mg/dL Creatinine (0.7-1.2) mg/dl Est GFR ( Amer) Est GFR (Non-Af Amer) POC Glucose (mg/dL) 289 H (65-110) mg/dL Random Glucose (70-110) mg/dL Calcium (8.4-10.5) mg/dL Phosphorus (2.5-4.5) mg/dL Magnesium (1.7-2.2) mg/dL Total Bilirubin (0.2-1.3) mg/dL AST (14-36) U/L ALT (7-56) U/L Alkaline Phosphatase (38-126) U/L Total Protein (5.8-8.3) g/dL Albumin (3.0-4.8) g/dL Globulin gm/dL Albumin/Globulin Ratio (1.1-1.8) Procalcitonin 1.88 H (0.19-0.49) NG/ML Influenza Type A Ab (<1:8) titer Influenza Type B Ab (<1:8) titer Crossmatch See Detail 10/19/18 Range/Units 07:00 WBC (4.5-11.0) 10^3/uL RBC (3.5-6.1) 10^6/uL Hgb (12.0-16.0) g/dL Hct (36.0-48.0) % MCV (80.0-105.0) fl MCH (25.0-35.0) pg MCHC (31.0-37.0) g/dl RDW (11.5-14.5) % Plt Count (120.0-450.0) 10^3/uL Neut % (Auto) (50.0-68.0) % Lymph % (Auto) (22.0-35.0) % [place] % (Auto) (1.0-6.0) % Eos % (Auto) (1.5-5.0) % Baso % (Auto) (0.0-3.0) % Lymph # (Auto) (1.2-3.4) [place] # (Auto) (0.1-0.6) Eos # (Auto) (0.0-0.7) Baso # (Auto) (0.0-2.0) K/mm3 Absolute Neuts (auto) (1.4-6.5) pCO2 (35-45) mm/Hg pO2 (80-100) mm/Hg HCO3 (21-28) mmol/L ABG pH (7.35-7.45) ABG Total CO2 (22-28) mmol.L ABG O2 Saturation (95-98) % ABG O2 Content (15-23) ML/dl ABG Base Excess (-2.0-3.0) mmol/L ABG Hemoglobin (11.7-17.4) g/dL ABG Carboxyhemoglobin (0.5-1.5) % POC ABG HHb (Measured) (0-5) % ABG Methemoglobin (0.0-3.0) % ABG O2 Capacity (16-24) mL/dl Hgb O2 Saturation (95.0-98.0) % FiO2 % Crit Value Called To Crit Value Called By Blood Gas Notified Time Sodium (132-148) mmol/L Potassium (3.6-5.0) mmol/L Chloride (98-107) mmol/L Carbon Dioxide (21-33) mmol/L Anion Gap (10-20) BUN (7-21) mg/dL Creatinine (0.7-1.2) mg/dl Est GFR ( Amer) Est GFR (Non-Af Amer) POC Glucose (mg/dL) (65-110) mg/dL Random Glucose (70-110) mg/dL Calcium (8.4-10.5) mg/dL Phosphorus (2.5-4.5) mg/dL Magnesium (1.7-2.2) mg/dL Total Bilirubin (0.2-1.3) mg/dL AST (14-36) U/L ALT (7-56) U/L Alkaline Phosphatase (38-126) U/L Total Protein (5.8-8.3) g/dL Albumin (3.0-4.8) g/dL Globulin gm/dL Albumin/Globulin Ratio (1.1-1.8) Procalcitonin (0.19-0.49) NG/ML Influenza Type A Ab 1:64 H (<1:8) titer Influenza Type B Ab 1:32 H (<1:8) titer Crossmatch Laboratory Results - last 24 hr 10/19/18 10/21/18 10/23/18 07:00 12:00 14:00 WBC RBC Hgb Hct MCV MCH MCHC RDW Plt Count Neut % (Auto) Lymph % (Auto) [place] % (Auto) Eos % (Auto) Baso % (Auto) Lymph # (Auto) [place] # (Auto) Eos # (Auto) Baso # (Auto) Absolute Neuts (auto) pCO2 pO2 HCO3 ABG pH ABG Total CO2 ABG O2 Saturation ABG O2 Content ABG Base Excess ABG Hemoglobin ABG Carboxyhemoglobin POC ABG HHb (Measured) ABG Methemoglobin ABG O2 Capacity Hgb O2 Saturation FiO2 Crit Value Called To Crit Value Called By Blood Gas Notified Time Sodium Potassium Chloride Carbon Dioxide Anion Gap BUN Creatinine Est GFR ( Amer) Est GFR (Non-Af Amer) POC Glucose (mg/dL) Random Glucose Calcium Phosphorus Magnesium Total Bilirubin AST ALT Alkaline Phosphatase Total Protein Albumin Globulin Albumin/Globulin Ratio Procalcitonin 1.88 H Influenza Type A Ab 1:64 H Influenza Type B Ab 1:32 H Crossmatch See Detail 10/23/18 10/23/18 10/24/18 18:14 21:05 05:30 WBC 7.9 D RBC 3.33 L Hgb 9.7 L Hct 30.8 L MCV 92.5 MCH 29.1 MCHC 31.5 RDW 17.2 H Plt Count 160 Neut % (Auto) 83.0 H Lymph % (Auto) 5.5 L [place] % (Auto) 7.1 H Eos % (Auto) 4.3 Baso % (Auto) 0.1 Lymph # (Auto) 0.4 L [place] # (Auto) 0.6 Eos # (Auto) 0.3 Baso # (Auto) 0.01 Absolute Neuts (auto) 6.52 H pCO2 pO2 HCO3 ABG pH ABG Total CO2 ABG O2 Saturation ABG O2 Content ABG Base Excess ABG Hemoglobin ABG Carboxyhemoglobin POC ABG HHb (Measured) ABG Methemoglobin ABG O2 Capacity Hgb O2 Saturation FiO2 Crit Value Called To Crit Value Called By Blood Gas Notified Time Sodium Potassium Chloride Carbon Dioxide Anion Gap BUN Creatinine Est GFR ( Amer) Est GFR (Non-Af Amer) POC Glucose (mg/dL) 289 H 283 H Random Glucose Calcium Phosphorus Magnesium Total Bilirubin AST ALT Alkaline Phosphatase Total Protein Albumin Globulin Albumin/Globulin Ratio Procalcitonin Influenza Type A Ab Influenza Type B Ab Crossmatch 10/24/18 10/24/18 10/24/18 05:30 05:48 07:12 WBC RBC Hgb Hct MCV MCH MCHC RDW Plt Count Neut % (Auto) Lymph % (Auto) [place] % (Auto) Eos % (Auto) Baso % (Auto) Lymph # (Auto) [place] # (Auto) Eos # (Auto) Baso # (Auto) Absolute Neuts (auto) pCO2 69 H pO2 137.0 H HCO3 33.2 H ABG pH 7.29 L ABG Total CO2 35.3 H ABG O2 Saturation 99.7 H ABG O2 Content 12.7 L ABG Base Excess 5.3 H ABG Hemoglobin 9.1 L ABG Carboxyhemoglobin 2.2 H POC ABG HHb (Measured) 0.3 ABG Methemoglobin 0.8 ABG O2 Capacity 12.7 L Hgb O2 Saturation 96.7 FiO2 50.0 Crit Value Called To Dr. boyd Crit Value Called By Maxim Blood Gas Notified Time 608 Sodium 145 Potassium 3.9 Chloride 106 Carbon Dioxide 30 Anion Gap 13 BUN 68 H Creatinine 1.8 H Est GFR ( Amer) 33 Est GFR (Non-Af Amer) 27 POC Glucose (mg/dL) 217 H Random Glucose 232 H Calcium 9.1 Phosphorus 3.3 Magnesium 2.3 H Total Bilirubin 0.3 AST 19 ALT 20 Alkaline Phosphatase 65 Total Protein 6.8 Albumin 3.6 Globulin 3.2 Albumin/Globulin Ratio 1.1 Procalcitonin Influenza Type A Ab Influenza Type B Ab Crossmatch 10/24/18 10:15 WBC RBC Hgb Hct MCV MCH MCHC RDW Plt Count Neut % (Auto) Lymph % (Auto) [place] % (Auto) Eos % (Auto) Baso % (Auto) Lymph # (Auto) [place] # (Auto) Eos # (Auto) Baso # (Auto) Absolute Neuts (auto) pCO2 pO2 HCO3 ABG pH ABG Total CO2 ABG O2 Saturation ABG O2 Content ABG Base Excess ABG Hemoglobin ABG Carboxyhemoglobin POC ABG HHb (Measured) ABG Methemoglobin ABG O2 Capacity Hgb O2 Saturation FiO2 Crit Value Called To Crit Value Called By Blood Gas Notified Time Sodium Potassium Chloride Carbon Dioxide Anion Gap BUN Creatinine Est GFR ( Amer) Est GFR (Non-Af Amer) POC Glucose (mg/dL) Random Glucose Calcium Phosphorus Magnesium Total Bilirubin AST ALT Alkaline Phosphatase Total Protein Albumin Globulin Albumin/Globulin Ratio Procalcitonin 2.95 H Influenza Type A Ab Influenza Type B Ab Crossmatch Radiology Impressions: Radiology Impressions Renal Ultrasound 10/22/18 17:16 IMPRESSION: Echogenic renal parenchyma may be seen in setting of medical renal disease. Right renal cysts. Chest X-Ray 10/24/18 06:00 IMPRESSION: Stable tubes and catheters with no interval consolidation, pleural effusion or pneumothorax identified. No pulmonary vascular congestion. Abdomen/Pelvis CT 10/24/18 12:14 IMPRESSION: 1. Bilateral streaky perinephric changes are identified, greater the left and right. Consider potential left pyelonephritis/nephritis. No obstructive uropathy bilaterally or radiodense urolithiasis. 2. Left colonic diverticulosis without diverticulitis. 3. Small umbilical and left inguinal hernias containing mesenteric fat and minimal fluid. 4. Limited anterior wedge compression fracture L1, age indeterminate. Head CT 10/24/18 12:14 IMPRESSION: No acute intracranial findings EKG/Cardiology Studies: Cardiology / EKG Studies 10/24/18 11:37 EKG [ELECTROCARDIOGRAM] Stat Comment: Reason For Exam: ekg changes Does Patient Have a Pacemaker?: Yes Critical Care Progress Note - Nutrition Nutrition: Nutrition Category Date Time Status NPO Diet [DIET] Diets 10/24/18 Dinner Ordered Addendum Addendum: 10/24/18 17:07 MICU Attending Addendum Patient seen and examined with housestaff agree with resident note above with the following add/exceptions: 73 F HTN, CAD s/p CABG(06/14/14), paroxysmal Afib s/p PM placement on home eliquis, mild-mod pulm HTN (RVSP 55mmHg), COPD on home O2, HFpEF, CKD4, NIDDM admitted to ICU for hypertensive emergency complicated by ventilator dependent hypercapnic respiratory failure. Pulm exam improved today vent adjusted cont antihtn meds increase norvasc from 5 to 10mg metop 50bid hydral po 50 BID lasix 40 holding home lisinpril 20mg for now holding eliquis for now given +guaic cont revatio for phtn abx as per ID spring improiving, cont to monitor urine output rest of care as noted above Sarai Zafar MD MICU Attending
[2018-10-24] MEDS: Insulin Reg-HIGH-Coverage SC SCH ×4 (08:25→22:00)
[2018-10-24] MEDS: Pantoprazole 40 mg EC Tab PO SCH (08:27)
--- NOTE | 2018-10-24 08:27 | RAD ---
Date of service: 10/24/2018 HISTORY: intubated COMPARISON: Portable chest 10/23/2018. FINDINGS: LUNGS: Endotracheal and nasogastric tubes are not significantly changed in position with pacemaker reiterated as well. No consolidation bilaterally. PLEURA: No significant pleural effusion identified, no pneumothorax apparent. CARDIOVASCULAR: Calcific atherosclerotic changes are seen related to the thoracic aorta. Normal cardiac size. No pulmonary vascular congestion. OSSEOUS STRUCTURES: No significant abnormalities. VISUALIZED UPPER ABDOMEN: Normal. OTHER FINDINGS: None. IMPRESSION: Stable tubes and catheters with no interval consolidation, pleural effusion or pneumothorax identified. No pulmonary vascular congestion.
--- NOTE | 2018-10-24 08:36 | PN ---
DATE: 10/24/2018(630am-720am) PULMONARY NOTE SUBJECTIVE: The patient is now in the ICU. She is intubated and sedated. PHYSICAL EXAMINATION: VITAL SIGNS: Temperature is 98.3, pulse is 60, respiratory rate 20/18, blood pressure 128/45. HEENT: Normocephalic, atraumatic. No JVD. CARDIOVASCULAR: Systolic ejection murmur at the lower left sternal border. Positive S3 gallop. LUNGS: Minimal crackles at the bases. Minimal rhonchi. No wheezing. GI: Abdomen is soft, nondistended. Bowel sounds are positive. EXTREMITIES: Less edema. No cyanosis, no clubbing. SKIN: No acute rash. NEUROLOGIC: Exam limited at the present time. PERTINENT LABORATORY DATA: Chest x-ray was done this morning and reviewed. The chest x-ray this morning is slightly improved compared to the film done yesterday afternoon - with decreased pulmonary vascular congestion. Official results are pending. Arterial blood gas was done on PRVC 18, tidal volume 400, FIO2 50%, PEEP of 5. Results are: PH 7.29, PCO2 69, PO2 of 137. IMPRESSION: 1. Respiratory failure. 2. Acute congestive heart failure. 3. Advanced chronic obstructive pulmonary disease. 4. Right lower lobe pneumonia. 5. Rule out myocardial infarction. 6. Paroxysmal atrial fibrillation. 7. Renal insufficiency. PLAN: The patient is now in the ICU and intubated. She is sedated. I did discuss the case with the night nurse at length. I also discussed the case with Dr. Jones (ICU) at length yesterday. As noted previously, the patient's blood pressure was uncontrolled during the morning hours. She was then transferred to the medical ICU for intravenous treatment. Chest x-ray done yesterday afternoon showed definite worsening - with increased pulmonary vascular congestion. In addition, the arterial blood gas revealed a worsening respiratory acidosis. The patient was then intubated for airway protection and ventilation. I did review the chest x-ray from this morning. The chest x-ray is improved from yesterday afternoon - with decreased pulmonary vascular congestion. I have also reviewed the arterial blood gas. The arterial blood gas remains with a mild respiratory acidosis, but with a decrease in the alveolar-arterial gradient. On physical exam, the patient has no significant bronchospasm. I will continue the current nebulizer treatments and low-dose intravenous steroids for now. Inputs by Infectious Disease, Cardiology, and Renal are also noted. The patient is critically ill at this point in time. Her overall status/prognosis remains very guarded. I will discuss the above with the entire ICU team in the next few moments. I will also discuss the above with the attending physician later this morning. Bhupinder Chiang MD MTDD
--- NOTE | 2018-10-24 09:14 | CT ---
Date of service: 10/24/2018 PROCEDURE: CT HEAD WITHOUT CONTRAST. HISTORY: ?HTN emergency/confusion COMPARISON: 06/22/2016 TECHNIQUE: Axial computed tomography images were obtained through the head/brain without intravenous contrast. Radiation dose: Total exam DLP = 854.3 mGy-cm. This CT exam was performed using one or more of the following dose reduction techniques: Automated exposure control, adjustment of the mA and/or kV according to patient size, and/or use of iterative reconstruction technique. FINDINGS: HEMORRHAGE: No intracranial hemorrhage. BRAIN: No mass effect or edema. No atrophy or chronic microvascular ischemic changes. VENTRICLES: Unremarkable. No hydrocephalus. CALVARIUM: Unremarkable. PARANASAL SINUSES: Unremarkable as visualized. No significant inflammatory changes. MASTOID AIR CELLS: Unremarkable as visualized. No inflammatory changes. OTHER FINDINGS: None IMPRESSION: No acute intracranial findings
[2018-10-24] MEDS: Cefepime 1gm in NS 100ml 1 GM/100 ML BAG IVPB SCH (09:42)
[2018-10-24] MEDS: Sildenafil 20 MG TAB PO SCH ×2 (09:45→17:52)
[2018-10-24] MEDS: MethylPREDNISolone 40 mg Vial IVP SCH ×2 (09:45→21:59)
[2018-10-24] MEDS ORDERED: Vancomycin 1gm in NS 250ml 1 GM/250 ML BAG IVPB STA (10:04)
--- NOTE | 2018-10-24 11:06 | PN ---
DATE: 10/24/2018 SUBJECTIVE: The patient is in bed in no acute distress, nontoxic. The patient now is intubated on a ventilator, seen earlier today. PHYSICAL EXAMINATION VITAL SIGNS: On exam, temperature is 98, blood pressure is 180/70, respiratory rate of 18, heart rate of 120. HEENT: Reveals ET tube in place. NECK: Supple. LUNGS: Have decreased breath sounds. HEART: Normal S1, S2. ABDOMEN: Soft. LABORATORY DATA: Reveals a white count of 7.9, hemoglobin 9, platelets of 160. Chemistries reveals the patient has a BUN of 68, creatinine of 1.8. Procalcitonin is 1.88. Urinalysis is noted.. Urine Legionella antigen is negative. Yeast in the sputum, Pseudomonas and naris. The patient had a CAT scan of the head today. No acute findings. Had a CAT scan of the abdomen and pelvis. Dr. Robert note is reviewed. Review of orders reveals the patient to be on cefepime. ASSESSMENT AND PLAN: The patient is a 73-year-old female who was seen earlier in the ICU, now with respiratory failure intubated, now the patient with diastolic congestive heart failure, chronic obstructive lung disease, coronary artery disease, hypertension, diabetes, hyperparathyroidism, panic disorder, moderate pulmonary hypertension, mitral regurgitation, tricuspid regurgitation, admitted now with severe sepsis, community-acquired pneumonia, acute kidney injury, diastolic congestive heart failure, chronic congestive heart failure and a coagulase-negative Staphylococcus with Pseudomonas in the urine, has been treated for today is day #7 of cefepime and Zithromax. We will discontinue Zithromax and cefepime. Yesterday, the patient had respiratory failure, intubated on a ventilator. However, the patient is afebrile. We will repeat pancultures, blood, urine, sputum and yesterday, blood, urine and MRSA screen was also ordered. We will order a procalcitonin, although her renal failure of limited value. We will give a dose of vancomycin and then start the patient on meropenem, adjusted for renal disease. We will make further recommendations upon availability of initial results. Overall, prognosis is poor. We will follow with you. Juan Miguel Malone MD [facility] # [id number]
--- NOTE | 2018-10-24 11:14 | PN ---
DATE: 10/24/2018 SUBJECTIVE The patient is currently seen in CCU bed 1. The patient was transferred to the CCU yesterday because of increasing respiratory distress in the setting of COPD and pneumonia and possible CHF. The patient is currently on a ventilator, sedated. She has just come back from an abdominal and pelvic CT scan. MEDICATIONS: Medication list reviewed. The patient is currently on hydralazine, Cardene, Diprivan, DuoNeb, folic acid, subcu heparin, insulin p.r.n., Lipitor, Lopressor, Lyrica, Maxipime, midazolam, Norvasc, Protonix, Pulmicort, Revatio, Singulair, Solu-Medrol, Tylenol p.r.n., Xopenex, Zithromax, and Zofran. OBJECTIVE: INTAKE/OUTPUT: Intake is 1478, output is 1700. VITAL SIGNS: Blood pressure is 128/45, pulse is 60, respiratory rate is 22, temperature 98.6, pulse ox 100%. HEENT: Eyes are closed. The patient is intubated. NECK: No neck vein distention. CHEST: Scattered rhonchi. No rales. Decreased breath sounds at the bases. CARDIAC: Normal S1, S2. Positive MR/TR/AI/. No S3, no S4, no rub. ABDOMEN: Moderately obese. Nondistended. Soft. Bowel sounds normal. EXTREMITIES: Show no lower extremity pitting edema. No cyanosis or clubbing. LABORATORY DATA AND IMAGING: CBC today white blood cell count 7.9, hemoglobin 9.7 with a platelet count of 160,000. Blood gas from today showed a pH of 7.29 with a pCO2 of 69 and a pO2 of 137. Adjustments were made in her ventilator settings. Chemistry showed normal electrolytes. BUN down to 68 with a creatinine of 1.8. Her BUN was as high as 84, is now down to 68, on admission she was 37. Creatinine down from a high of 3 to 1.8. Her baseline creatinine is in the low 1 range. Microbiology, urines were positive for Pseudomonas, sputum was positive for yeast, and initial blood cultures were positive for coag-negative Staph. ASSESSMENT: 1. Acute renal failure, superimposed on chronic kidney disease, likely stage 3/4. Her creatinine back in 2016 was in the 1 to 1.3 range. Most recently, she has been in the low 2 range. The patient had refractory hyperkalemia on admission. Her DANIEL inhibitor was discontinued. Her Aldactone was discontinued. The patient did receive Kayexalate to lower her potassium level. There was some concern about the possibly of being due to dialysis, so we could not lower her potassium level. Now with improvement in her BUN and creatinine, her potassium level is now normal at 3.9. There is no need for any form of dialytic therapy. 2. History of chronic obstructive pulmonary disease with bilateral pneumonia. The patient has just returned from a CAT scan. She had nodular densities on her chest CT scan. The patient developed an acute respiratory acidosis secondary to CO2 retention. She was unable to tolerate bilevel positive airway pressure and was transferred down to the coronary care unit in acute respiratory distress and is currently intubated. The patient is being followed closely by Pulmonary. 3. History of acute on chronic anemia. Hemoglobin is currently stable. Stools were initially positive for blood. Gastrointestinal had been consulted. She remains on proton pump inhibitor therapy. 4. History of arteriosclerotic heart disease, status post coronary artery bypass grafting, currently stable. 5. History of non insulin-dependent diabetes mellitus, currently stable on sliding scale insulin. 6. History of pulmonary hypertension and hypertension, currently stable. 7. History of valvular heart disease, mitral regurgitation/tricuspid regurgitation with mild aortic stenosis and aortic insufficiency. The patient's ejection fraction was 62%. PLAN: 1. Reviewed report of today's chest x-ray, no evidence for pulmonary vascular congestion. 2. As discussed with CCU staff, there is no role for any dialytic therapy as her BUN and creatinine continue to fall toward baseline levels and her hyperkalemia had resolved. 3. Continue antibiotic therapy for pneumonia. 4. We will keep the patient off DANIEL inhibition and Aldactone in light of her hyperkalemia. 5. Renal ultrasound report reviewed. She has echogenic renal parenchyma, chronic medical renal disease. No evidence for hydronephrosis. 6. We will continue to monitor the patient closely in the CCU with you. 7. Continued followup with GI, Cardiology, and Infectious Disease along with Pulmonary. Greater than 35 minutes spent in the care of this patient. Stalin Ibanez MD
--- NOTE | 2018-10-24 11:40 | CT ---
Date of service: 10/24/2018 PROCEDURE: CT Abdomen and Pelvis without intravenous contrast HISTORY: Abdominal pain COMPARISON: None. TECHNIQUE: Helical CT of the abdomen and pelvis was performed without oral or intravenous contrast as per referring physician request. Coronal and sagittal reformats were generated.. Contrast dose: None Radiation dose: Total exam DLP = 1426.79 mGy-cm. This CT exam was performed using one or more of the following dose reduction techniques: Automated exposure control, adjustment of the mA and/or kV according to patient size, and/or use of iterative reconstruction technique. FINDINGS: LOWER THORAX: Cardiomegaly identified with extensive mitral annular calcifications. Pacemaker leads are seen at the right heart. No pericardial effusion. Trace bilateral pleural effusion identified bilaterally with limited subsegmental atelectasis related to compression. Nasogastric tube in situ terminating at the gastric fundus. LIVER: Unremarkable. No gross lesion or ductal dilatation. GALLBLADDER AND BILE DUCTS: Unremarkable. PANCREAS: Unremarkable. No gross lesion or ductal dilatation. SPLEEN: Unremarkable. ADRENALS: Unremarkable. No mass. KIDNEYS AND URETERS: Nonspecific streaky perinephric changes are identified bilaterally, greater the left and right sides. No obstructive uropathy bilaterally. Consider potential left-sided pyelonephritis. Clinically correlate further. VASCULATURE: Nonaneurysmal abdominal aortic calcific atherosclerotic changes are identified. BOWEL: No bowel obstruction identified. Elgh-mg-nhnwertr volume of retained fecal material scattered throughout various large-bowel segments. Left colonic diverticular change are identified without definite diverticulitis. APPENDIX: Unremarkable. Normal appendix. PERITONEUM: Small umbilical hernia containing only mesenteric fat and trace fluid.. No free fluid. No free air. Small left inguinal hernia contain only fat and a minimal amount of fluid. LYMPH NODES: Unremarkable. No enlarged lymph nodes. BLADDER: Completely decompressed by Benton catheter. Slightly irregular pericystic changes may indicate cystitis. Clinically correlate further. REPRODUCTIVE: Prior hysterectomy. BONES: Potential anterior wedge compression fracture of L1 of indeterminate age. Multilevel lumbar spondylosis appears moderate to severe. OTHER FINDINGS: None. IMPRESSION: 1. Bilateral streaky perinephric changes are identified, greater the left and right. Consider potential left pyelonephritis/nephritis. No obstructive uropathy bilaterally or radiodense urolithiasis. 2. Left colonic diverticulosis without diverticulitis. 3. Small umbilical and left inguinal hernias containing mesenteric fat and minimal fluid. 4. Limited anterior wedge compression fracture L1, age indeterminate.
--- NOTE | 2018-10-24 16:18 | PN ---
DATE: 10/24/2018 REASON FOR CONSULTATION AND FOLLOWUP: History of coronary artery disease, CABG, history of PTCA, admitted with shortness of breath, status post pacemaker, atrial fibrillation worsening renal insufficiency, worsening respiratory insufficiency, status post intubated moved to ICU. PHYSICAL EXAMINATION: GENERAL: The patient remain on vent, going for CAT scan of the head, abdomen and pelvis today. VITAL SIGNS: Temperature 100, heart rate 102, aflutter and blood pressure 114/53. HEENT: PERRLA. Extraocular muscles intact. NECK: Supple. No carotid bruit or thyromegaly. CHEST: Clear to auscultation. HEART: S1 and S2, regular. ABDOMEN: Soft. EXTREMITIES: Clubbing and cyanosis negative. LABORATORY DATA: WBC 7.9, hemoglobin 9.6, hematocrit 30.8 and platelet count 160. Chemistry shows sodium 145, potassium 3.9, chloride 106, carbon 30, anion gap of 13, BUN 68 and creatinine 1.8. IMPRESSION: A 73-year-old female with past medical history significant for coronary artery disease, status post coronary artery bypass graft, obesity body mass index elevated, history of foot body mass index 40 kg/m2, history of coronary artery bypass graft in 2013, history of stent in [place] coronary artery as right coronary artery occluded, admitted with respiratory insufficiency, chronic obstructive pulmonary disease, possible pneumonia, congestive heart failure, worsening renal insufficiency, positive troponin secondary to renal insufficiency, acute kidney injury on baseline, chronic renal insufficiency, history of proximal atrial fibrillation, hyperkalemia inability to take medications, respiratory status get worse and moved to ICU requiring intubation. Now the patient currently being intubated on now in atrial fibrillation flutter. RECOMMENDATION: We will start IV Verapamil 2.5 every 6 plan for heart rate more than 110. We will follow with you. Overall the patient condition is critical. Long-term prognosis is guarded. Continue vent management. Continue broad-spectrum antibiotic for blood pressure. The patient is started nicardipine. Now the patient has intubated and the tube so give continue metoprolol 50 twice a day and we will put 2.5 verapamil p.r.n. for heart rate more than 120. We will follow. The patient had CAT scan of the chest after she came back essentially negative, no acute finding noted. CAT scan of the abdomen and pelvis bilateral perinephric changes identified great of left than right, left colonic diverticulosis noted, a small umbilical left inguinal hernia noted. troponin bumped most likely secondary to renal insufficiency doubt this is an IA. Sapna Latif MD
--- NOTE | 2018-10-24 20:36 | PN ---
DATE: 10/24/2018 SUBJECTIVE: The patient is a 73-year-old. Seen and examined. Intubated in ICU, sedated, not in any distress. PHYSICAL EXAMINATION: VITAL SIGNS: She is afebrile. Pulse 115, respirations 16, blood pressure 124/54. LUNGS: Bilateral fair airflow. No rhonchi or crackles. HEART: S1, S2 audible. ABDOMEN: Soft and nontender. No rebound. No guarding. NEUROLOGIC: The patient is sedated. EXTREMITIES: Bilateral legs have SCDs. LABORATORY EXAM: WBC 7.9, hemoglobin 9.7, hematocrit 30.8, platelets 160. Chemistry sodium 145, potassium 3.9, chloride 106, CO2 of 30, BUN 68, creatinine 1.8, blood sugar 217. ASSESSMENT: 1. Respiratory failure. 2. On ventilator. 3. Chronic obstructive pulmonary disease. 4. Congestive heart failure. 5. Pneumonia. 6. Pulmonary hypertension. 7. Pyelonephritis. 8. Left colonic diverticulosis. 9. Umbilical hernia. PLAN: Currently, the patient is on ventilator. She is sedated on IV antibiotics. Continue nebulizer treatment. Follow up H and H. Follow up electrolytes. We will see the patient in a.m. Laurel Schultz MD
--- NOTE | 2018-10-24 22:28 | CARD ---
APPROVED REPORT Date of service: 10/24/2018 EKG Measurement Heart [id number] <Conclusion> Probably atrial flutter with 2:1 block Incomplete right bundle branch block Leftward axis Cannot exclude oldi inferior infarct ST & T wave abnormality, consider anterolateral ischemia CCR Abnormal ECG
[2018-10-25] MEDS: Levalbuterol 1.25 MG/3 ML Inhal Soln UD IH SCH ×4 (01:10→20:25)
--- NOTE | 2018-10-25 02:31 | PN ---
DATE: 10/24/2018 SUBJECTIVE: This patient still remains on the vent. PHYSICAL EXAMINATION: VITAL SIGNS: Temperature is afebrile, blood pressure 118/56, pulse 109, respirations 29, and O2 saturation 99%. End-tidal CO2 of 29. HEENT: Atraumatic and anicteric. NECK: Supple. HEART: S1 and S2 heard. LUNGS: Bilateral air entry present. ABDOMEN: Soft. There is no tenderness. Bowel sounds present. EXTREMITIES: No cyanosis. No clubbing. NEUROLOGIC: The patient is on vent, sedated. LABORATORY DATA: Hemoglobin 9.7, hematocrit 30.8, WBC 7.9, and platelet 160. Chemistry showed . The patient has anemia, stool for occult blood positive. The patient did have a CT done with no IV or p.o. contrast, found to have perinephric stranding and diverticulosis, both umbilical and also inguinal hernia. IMPRESSION: This 73-year-old patient with history of coronary artery disease, with history of pulmonary hypertension, chronic obstructive pulmonary disease, admitted with abdominal pain with official diagnosis include inflammatory bowel disease is infectious. 1. Anemia with occult blood positive. 2. History of multiple comorbidities with higher risk for any endoscopy procedure. RECOMMENDATIONS: Would recommend: 1. Followup of the CAT scan. 2. If the patient need to be on Eliquis blood thinner, he can be restarted with close followup of the hemoglobin and hematocrit. 3. We will discuss with Pulmonary and ICU team regarding the timing of endoscopic evaluation. I did speak with the patient's daughter earlier and they for conservative approach. We will discuss with the patient's family again. Thank you very much for allowing us to participate in the care of the patient. Keegan Miranda MD
[2018-10-25] MEDS: Propofol 10 mg/ml 1,000 MG/100 ML VIAL IV PRN ×2 (05:59)
[2018-10-25 06:13] LABS: BASO # 0.01 K/mm3 (0.0-2.0); BASO % 0.2 % (0.0-3.0); EOS % 0.2 % (1.5-5.0); HEMOGLOBIN 9.2 g/dL (12.0-16.0); LYMPH # 0.4 (1.2-3.4); LYMPH % 7.3 % (22.0-35.0); MEAN CORPUSCULAR HEMOGLOBIN 27.4 pg (25.0-35.0); MEAN CORPUSCULAR HGB CONC 30.9 g/dl (31.0-37.0); MONO # 0.3 (0.1-0.6); MONO % 5.8 % (1.0-6.0); PLATELET COUNT 179 10^3/uL (120.0-450.0); RBC 3.36 10^6/uL (3.5-6.1); WHITE BLOOD COUNT 5.9 10^3/uL (4.5-11.0)
[2018-10-25 06:19] LABS: MEAN CELL VOLUME 88.7 fl (80.0-105.0)
[2018-10-25 06:21] LABS: ARTERIAL BLOOD GAS HCO3 25.7 mmol/L (21-28); ARTERIAL BLOOD GAS O2 CAPACITY 12.7 mL/dl (16-24); ARTERIAL BLOOD GAS O2 CONTENT 12.7 ML/dl (15-23); ARTERIAL BLOOD GAS O2 SAT 100.1 % (95-98); ARTERIAL BLOOD GAS PCO2 33 mm/Hg (35-45); ARTERIAL BLOOD GAS TCO2 26.7 mmol.L (22-28)
[2018-10-25] MEDS: Budesonide 0.5 mg/2 ml Inhal Susp UD IH SCH ×2 (07:00→20:25)
[2018-10-25 07:20] LABS: ALB/GLOB RATIO 1.1 (1.1-1.8); ALBUMIN 3.4 g/dL (3.0-4.8); CALCIUM 9.4 mg/dL (8.4-10.5)
[2018-10-25] MEDS: Insulin Reg-HIGH-Coverage SC SCH ×4 (07:54→22:15)
--- NOTE | 2018-10-25 08:40 | CP.CCUPN ---
<GuyKitty - Last Filed: 10/25/18 11:00> CCU Subjective - Physician Review Subjective (Free Text): CRITICAL CARE PROGRESS NOTE Kitty Tovar PGY1 Pt seen and examined at bedside this am. No acute events overnight. Pt is sedated, intubated. She is opening her eyes as sedation has been turned off. Currently undergoing weaning trial on pressure support with 8/5mmHg with plan for extubation. ROS unable to be obtained. CCU Objective - Vital Signs / Intake & Output Vital Signs (Last 4 hours): Vital Signs Pulse Resp BP Pulse Ox 10/25/18 07:28 16 100 10/25/18 07:02 16 100 10/25/18 05:50 117 H 100 10/25/18 05:30 118 H 99 10/25/18 05:20 97 H 99 10/25/18 05:10 100 H 98 10/25/18 05:00 97 H 138/62 99 10/25/18 04:50 98 H 98 10/25/18 04:40 92 H 98 Intake and Output (Last 8hrs): Intake & Output 10/24/18 10/25/18 10/25/18 22:59 06:59 14:59 Intake Total 640 500 Output Total 600 600 Balance 40 -100 Intake: IV 640 500 Left Forearm 540 Right Forearm 100 Right Hand 300 Oral 0 Output: Urine 600 600 Urethral ([place]) 600 600 Other: # Bowel Movements 0 0 - Physical Exam Head: Positive for: Atraumatic, Normocephalic Pupils: Positive for: PERRL Conjunctiva: Positive for: Normal Mouth: Positive for: Moist Mucous Membranes Neck: Negative for: JVD Respiratory/Chest: Positive for: Good Air Exchange (fair air exchange bilaterally), Other (intubated) Cardiovascular: Positive for: Tachycardic (tachycardic but normal rhythm) Abdomen: Positive for: Hernias (reducible umbilical hernia). Negative for: Distention, Peritoneal Signs Upper Extremity: Positive for: Normal Inspection, Cyanosis Lower Extremity: Positive for: Edema (trace edema to bilateral lower extremities) Skin: Positive for: Warm, Dry, Normal Color. Negative for: Rashes - Medications Active Medications: Active Medications Generic Name Dose Route Start Last Admin Trade Name Freq PRN Reason Stop Dose Admin Acetaminophen 650 mg 10/18/18 19:35 10/21/18 16:47 Tylenol 325mg Tab PO 650 mg Q6H PRN Administration Fever >100.4 F Albuterol/Ipratropium 3 ml 10/18/18 19:35 10/19/18 10:38 Duoneb 3 Mg/0.5 Mg (3 Ml) Ud IH 3 ml Q2H PRN Administration Shortness of Breath Amlodipine Besylate 10 mg 10/23/18 12:15 10/24/18 09:44 Norvasc PO 10 mg DAILY CYNDI Administration Apixaban 2.5 mg 10/18/18 19:30 10/21/18 17:07 Eliquis PO 2.5 mg BID CYNDI Administration Protocol Atorvastatin Calcium 40 mg 10/19/18 10:00 10/24/18 09:44 Lipitor PO 40 mg DAILY CYNDI Administration Budesonide 0.5 mg 10/22/18 08:00 10/24/18 20:30 Pulmicort Respules IH 0.5 mg [id number] CYNDI Administration Folic Acid 1 mg 10/19/18 10:00 10/24/18 09:45 Folic Acid PO 1 mg DAILY CYNDI Administration Furosemide 40 mg 10/19/18 10:00 10/20/18 09:25 Lasix IVP 40 mg DAILY CYNDI Administration Heparin Sodium (Porcine) 5,000 units 10/23/18 14:30 10/25/18 05:59 Heparin SC 5,000 units Q8 CYNDI Administration Protocol Hydralazine HCl 50 mg 10/22/18 18:00 10/24/18 17:51 Apresoline PO 50 mg BID CYNDI Administration Hydralazine HCl 10 mg 10/23/18 17:33 Apresoline IVP Q4 PRN SBP > 180 Nicardipine HCl 20 mg in 200 mls @ 50 mls/hr 10/23/18 12:16 10/24/18 07:15 Cardene Iv Premix IV 0 mg/hr .Q4H PRN 0 mls/hr TITRATE PER MD ORDER Titration Protocol 5 MG/HR Propofol 1,000 mg in 100 mls @ 2.879 mls/hr 10/23/18 13:33 10/25/18 06:53 Diprivan IV 0 mcg/kg/min .Q24H PRN 0 mls/hr TITRATE PER MD ORDER Titration Protocol 5 MCG/KG/MIN Midazolam 100 mg/100ml in NS 100 mg in 100 mls @ 1 mls/hr 10/23/18 14:09 10/25/18 06:53 Midazolam 100 Mg/100ml In Ns IV 0 mg/hr .Q24H PRN 0 mls/hr Sedation Titration Protocol 1 MG/HR Meropenem 250 mg/ Sodium 100 mls @ 100 mls/hr 10/24/18 10:15 10/24/18 22:01 Chloride IVPB 10/31/18 10:16 100 mls/hr Q12H CYNDI Administration Protocol Potassium Chloride 10 meq in 100 mls @ 50 mls/hr 10/25/18 07:30 10/25/18 08:18 Potassium Chloride 10 Meq/100 Ml IVPB 10/25/18 11:29 50 mls/hr Q2H CYNDI Administration Insulin Human Regular 0 units 10/18/18 22:00 10/25/18 07:54 Humulin R High SC 7 units ACHS CYNDI Administration Protocol Levalbuterol HCl 1.25 mg 10/18/18 20:00 10/25/18 06:59 Xopenex IH 1.25 mg [id number] CYNDI Administration Methylprednisolone 40 mg 10/24/18 10:00 10/24/18 21:59 Solu-Medrol IVP 40 mg Q12 CYNDI Administration Metoprolol Tartrate 50 mg 10/18/18 19:30 10/24/18 17:50 Lopressor PO 50 mg BID CYNDI Administration Montelukast Sodium 10 mg 10/18/18 22:00 10/24/18 21:59 Singulair PO 10 mg HS CYNDI Administration Ondansetron HCl 4 mg 10/18/18 19:35 10/19/18 07:55 Zofran Inj IVP 4 mg Q6H PRN Administration Nausea/Vomiting Pantoprazole Sodium 40 mg 10/23/18 07:30 10/24/18 08:27 Protonix Ec Tab PO 40 mg ACB CYNDI Administration Pantoprazole Sodium 40 mg 10/25/18 10:00 Protonix Inj IVP DAILY CYNDI Pregabalin 75 mg 10/18/18 19:30 10/24/18 09:45 Lyrica PO 75 mg BID CYNDI Administration Sildenafil Citrate 20 mg 10/19/18 10:00 10/24/18 17:52 Revatio PO 20 mg BID CYNDI Administration Verapamil HCl 2.5 mg 10/24/18 12:34 Verapamil Inj IVP Q6H PRN for Heart rate >120 - Patient Studies Lab Studies: Microbiology Studies 10/23/18 14:00 Blood Culture - Preliminary Blood NO GROWTH AFTER 24 HOURS Lab Studies 10/25/18 10/25/18 10/25/18 Range/Units 07:37 06:00 05:10 WBC (4.5-11.0) 10^3/uL RBC (3.5-6.1) 10^6/uL Hgb (12.0-16.0) g/dL Hct (36.0-48.0) % MCV (80.0-105.0) fl MCH (25.0-35.0) pg MCHC (31.0-37.0) g/dl RDW (11.5-14.5) % Plt Count (120.0-450.0) 10^3/uL Neut % (Auto) (50.0-68.0) % Lymph % (Auto) (22.0-35.0) % [place] % (Auto) (1.0-6.0) % Eos % (Auto) (1.5-5.0) % Baso % (Auto) (0.0-3.0) % Lymph # (Auto) (1.2-3.4) [place] # (Auto) (0.1-0.6) Eos # (Auto) (0.0-0.7) Baso # (Auto) (0.0-2.0) K/mm3 Absolute Neuts (auto) (1.4-6.5) Differential Comment pCO2 33 L (35-45) mm/Hg pO2 191.0 H (80-100) mm/Hg HCO3 25.7 (21-28) mmol/L ABG pH 7.50 H (7.35-7.45) ABG Total CO2 26.7 (22-28) mmol.L ABG O2 Saturation 100.1 H (95-98) % ABG O2 Content 12.7 L (15-23) ML/dl ABG Base Excess 2.6 (-2.0-3.0) mmol/L ABG Hemoglobin 9.0 L (11.7-17.4) g/dL ABG Carboxyhemoglobin 2.1 H (0.5-1.5) % POC ABG HHb (Measured) -0.1 L (0-5) % ABG Methemoglobin 1.1 (0.0-3.0) % ABG O2 Capacity 12.7 L (16-24) mL/dl Hgb O2 Saturation 96.8 (95.0-98.0) % FiO2 40.0 % Sodium 149 H (132-148) mmol/L Potassium 3.5 L (3.6-5.0) mmol/L Chloride 112 H (98-107) mmol/L Carbon Dioxide 28 (21-33) mmol/L Anion Gap 12 (10-20) BUN 73 H (7-21) mg/dL Creatinine 2.1 H (0.7-1.2) mg/dl Est GFR ( Amer) 28 Est GFR (Non-Af Amer) 23 POC Glucose (mg/dL) 276 H (65-110) mg/dL Random Glucose 306 H* D (70-110) mg/dL Calcium 9.4 (8.4-10.5) mg/dL Phosphorus 2.8 (2.5-4.5) mg/dL Magnesium 2.5 H (1.7-2.2) mg/dL Total Bilirubin 0.6 (0.2-1.3) mg/dL AST 16 (14-36) U/L ALT 21 (7-56) U/L Alkaline Phosphatase 71 (38-126) U/L Total Protein 6.6 (5.8-8.3) g/dL Albumin 3.4 (3.0-4.8) g/dL Globulin 3.2 gm/dL Albumin/Globulin Ratio 1.1 (1.1-1.8) Procalcitonin (0.19-0.49) NG/ML Crossmatch 10/25/18 10/24/18 10/24/18 Range/Units 05:10 21:49 15:48 WBC 5.9 D (4.5-11.0) 10^3/uL RBC 3.36 L (3.5-6.1) 10^6/uL Hgb 9.2 L (12.0-16.0) g/dL Hct 29.8 L (36.0-48.0) % MCV 88.7 D (80.0-105.0) fl MCH 27.4 (25.0-35.0) pg MCHC 30.9 L (31.0-37.0) g/dl RDW 17.0 H (11.5-14.5) % Plt Count 179 (120.0-450.0) 10^3/uL Neut % (Auto) 86.5 H (50.0-68.0) % Lymph % (Auto) 7.3 L (22.0-35.0) % [place] % (Auto) 5.8 (1.0-6.0) % Eos % (Auto) 0.2 L (1.5-5.0) % Baso % (Auto) 0.2 (0.0-3.0) % Lymph # (Auto) 0.4 L (1.2-3.4) [place] # (Auto) 0.3 (0.1-0.6) Eos # (Auto) 0.0 (0.0-0.7) Baso # (Auto) 0.01 (0.0-2.0) K/mm3 Absolute Neuts (auto) 5.10 (1.4-6.5) Differential Comment pCO2 (35-45) mm/Hg pO2 (80-100) mm/Hg HCO3 (21-28) mmol/L ABG pH (7.35-7.45) ABG Total CO2 (22-28) mmol.L ABG O2 Saturation (95-98) % ABG O2 Content (15-23) ML/dl ABG Base Excess (-2.0-3.0) mmol/L ABG Hemoglobin (11.7-17.4) g/dL ABG Carboxyhemoglobin (0.5-1.5) % POC ABG HHb (Measured) (0-5) % ABG Methemoglobin (0.0-3.0) % ABG O2 Capacity (16-24) mL/dl Hgb O2 Saturation (95.0-98.0) % FiO2 % Sodium (132-148) mmol/L Potassium (3.6-5.0) mmol/L Chloride (98-107) mmol/L Carbon Dioxide (21-33) mmol/L Anion Gap (10-20) BUN (7-21) mg/dL Creatinine (0.7-1.2) mg/dl Est GFR ( Amer) Est GFR (Non-Af Amer) POC Glucose (mg/dL) 249 H 272 H (65-110) mg/dL Random Glucose (70-110) mg/dL Calcium (8.4-10.5) mg/dL Phosphorus (2.5-4.5) mg/dL Magnesium (1.7-2.2) mg/dL Total Bilirubin (0.2-1.3) mg/dL AST (14-36) U/L ALT (7-56) U/L Alkaline Phosphatase (38-126) U/L Total Protein (5.8-8.3) g/dL Albumin (3.0-4.8) g/dL Globulin gm/dL Albumin/Globulin Ratio (1.1-1.8) Procalcitonin (0.19-0.49) NG/ML Crossmatch 10/24/18 10/24/18 10/21/18 Range/Units 11:15 10:15 12:00 WBC (4.5-11.0) 10^3/uL RBC (3.5-6.1) 10^6/uL Hgb (12.0-16.0) g/dL Hct (36.0-48.0) % MCV (80.0-105.0) fl MCH (25.0-35.0) pg MCHC (31.0-37.0) g/dl RDW (11.5-14.5) % Plt Count (120.0-450.0) 10^3/uL Neut % (Auto) (50.0-68.0) % Lymph % (Auto) (22.0-35.0) % [place] % (Auto) (1.0-6.0) % Eos % (Auto) (1.5-5.0) % Baso % (Auto) (0.0-3.0) % Lymph # (Auto) (1.2-3.4) [place] # (Auto) (0.1-0.6) Eos # (Auto) (0.0-0.7) Baso # (Auto) (0.0-2.0) K/mm3 Absolute Neuts (auto) (1.4-6.5) Differential Comment pCO2 (35-45) mm/Hg pO2 (80-100) mm/Hg HCO3 (21-28) mmol/L ABG pH (7.35-7.45) ABG Total CO2 (22-28) mmol.L ABG O2 Saturation (95-98) % ABG O2 Content (15-23) ML/dl ABG Base Excess (-2.0-3.0) mmol/L ABG Hemoglobin (11.7-17.4) g/dL ABG Carboxyhemoglobin (0.5-1.5) % POC ABG HHb (Measured) (0-5) % ABG Methemoglobin (0.0-3.0) % ABG O2 Capacity (16-24) mL/dl Hgb O2 Saturation (95.0-98.0) % FiO2 % Sodium (132-148) mmol/L Potassium (3.6-5.0) mmol/L Chloride (98-107) mmol/L Carbon Dioxide (21-33) mmol/L Anion Gap (10-20) BUN (7-21) mg/dL Creatinine (0.7-1.2) mg/dl Est GFR ( Amer) Est GFR (Non-Af Amer) POC Glucose (mg/dL) 205 H (65-110) mg/dL Random Glucose (70-110) mg/dL Calcium (8.4-10.5) mg/dL Phosphorus (2.5-4.5) mg/dL Magnesium (1.7-2.2) mg/dL Total Bilirubin (0.2-1.3) mg/dL AST (14-36) U/L ALT (7-56) U/L Alkaline Phosphatase (38-126) U/L Total Protein (5.8-8.3) g/dL Albumin (3.0-4.8) g/dL Globulin gm/dL Albumin/Globulin Ratio (1.1-1.8) Procalcitonin 2.95 H (0.19-0.49) NG/ML Crossmatch See Detail Laboratory Results - last 24 hr 10/21/18 10/24/18 10/24/18 12:00 10:15 11:15 WBC RBC Hgb Hct MCV MCH MCHC RDW Plt Count Neut % (Auto) Lymph % (Auto) [place] % (Auto) Eos % (Auto) Baso % (Auto) Lymph # (Auto) [place] # (Auto) Eos # (Auto) Baso # (Auto) Absolute Neuts (auto) Differential Comment pCO2 pO2 HCO3 ABG pH ABG Total CO2 ABG O2 Saturation ABG O2 Content ABG Base Excess ABG Hemoglobin ABG Carboxyhemoglobin POC ABG HHb (Measured) ABG Methemoglobin ABG O2 Capacity Hgb O2 Saturation FiO2 Sodium Potassium Chloride Carbon Dioxide Anion Gap BUN Creatinine Est GFR ( Amer) Est GFR (Non-Af Amer) POC Glucose (mg/dL) 205 H Random Glucose Calcium Phosphorus Magnesium Total Bilirubin AST ALT Alkaline Phosphatase Total Protein Albumin Globulin Albumin/Globulin Ratio Procalcitonin 2.95 H Crossmatch See Detail 10/24/18 10/24/18 10/25/18 15:48 21:49 05:10 WBC 5.9 D RBC 3.36 L Hgb 9.2 L Hct 29.8 L MCV 88.7 D MCH 27.4 MCHC 30.9 L RDW 17.0 H Plt Count 179 Neut % (Auto) 86.5 H Lymph % (Auto) 7.[address] [place] % (Auto) 5.8 Eos % (Auto) 0.2 L Baso % (Auto) 0.2 Lymph # (Auto) 0.[address] [place] # (Auto) 0.3 Eos # (Auto) 0.0 Baso # (Auto) 0.01 Absolute Neuts (auto) 5.10 Differential Comment pCO2 pO2 HCO3 ABG pH ABG Total CO2 ABG O2 Saturation ABG O2 Content ABG Base Excess ABG Hemoglobin ABG Carboxyhemoglobin POC ABG HHb (Measured) ABG Methemoglobin ABG O2 Capacity Hgb O2 Saturation FiO2 Sodium Potassium Chloride Carbon Dioxide Anion Gap BUN Creatinine Est GFR ( Amer) Est GFR (Non-Af Amer) POC Glucose (mg/dL) 272 H 249 H Random Glucose Calcium Phosphorus Magnesium Total Bilirubin AST ALT Alkaline Phosphatase Total Protein Albumin Globulin Albumin/Globulin Ratio Procalcitonin Crossmatch 10/25/18 10/25/18 10/25/18 05:10 06:00 07:37 WBC RBC Hgb Hct MCV MCH MCHC RDW Plt Count Neut % (Auto) Lymph % (Auto) [place] % (Auto) Eos % (Auto) Baso % (Auto) Lymph # (Auto) [place] # (Auto) Eos # (Auto) Baso # (Auto) Absolute Neuts (auto) Differential Comment pCO2 33 L pO2 191.0 H HCO3 25.7 ABG pH 7.50 H ABG Total CO2 26.7 ABG O2 Saturation 100.1 H ABG O2 Content 12.7 L ABG Base Excess 2.6 ABG Hemoglobin 9.0 L ABG Carboxyhemoglobin 2.1 H POC ABG HHb (Measured) -0.1 L ABG Methemoglobin 1.1 ABG O2 Capacity 12.7 L Hgb O2 Saturation 96.8 FiO2 40.0 Sodium 149 H Potassium 3.5 L Chloride 112 H Carbon Dioxide 28 Anion Gap 12 BUN 73 H Creatinine 2.1 H Est GFR ( Amer) 28 Est GFR (Non-Af Amer) 23 POC Glucose (mg/dL) 276 H Random Glucose 306 H* D Calcium 9.4 Phosphorus 2.8 Magnesium 2.5 H Total Bilirubin 0.6 AST 16 ALT 21 Alkaline Phosphatase 71 Total Protein 6.6 Albumin 3.4 Globulin 3.2 Albumin/Globulin Ratio 1.1 Procalcitonin Crossmatch Radiology Impressions: Radiology Impressions Abdomen/Pelvis CT 10/24/18 12:14 IMPRESSION: 1. Bilateral streaky perinephric changes are identified, greater the left and right. Consider potential left pyelonephritis/nephritis. No obstructive uropathy bilaterally or radiodense urolithiasis. 2. Left colonic diverticulosis without diverticulitis. 3. Small umbilical and left inguinal hernias containing mesenteric fat and minimal fluid. 4. Limited anterior wedge compression fracture L1, age indeterminate. Head CT 10/24/18 12:14 IMPRESSION: No acute intracranial findings EKG/Cardiology Studies: Cardiology / EKG Studies 10/24/18 11:37 EKG [ELECTROCARDIOGRAM] Stat Comment: Reason For Exam: ekg changes Does Patient Have a Pacemaker?: Yes Fingerstick Blood Sugar Results: 276 Review of Systems - Review of Systems Review of Systems: unable to obtain Critical Care Progress Note - Nutrition Nutrition: Nutrition Category Date Time Status NPO Diet [DIET] Diets 10/24/18 Dinner Ordered Assessment/Plan - Assessment and Plan (Free Text) Assessment: 73 y/o F with PMHx of HTN, CAD s/p CABG(06/14/14) & cath (05/2015: LAI to LAD, SVG to D1, SVG to OM1, s/p PTCA of occluded RCA), paroxysmal Afib s/p PM placement on home eliquis, mild-mod pulm HTN (RVSP 55mmHg), COPD on home O2, HFpEF, CKD4, NIDDM admitted to ICU for hypertensive emergency complicated by ventilator dependent hypercapnic respiratory failure in the setting of cardiorenal syndrome Plan: Neuro: AMS -2/2 toxic metabolic encephalopathy in the setting of RLL pneumonia -CT head read as negative -Pt sedated/intubated with propofol/midazolam. Will attempt to wean down on propofol -Continue daily sedation vacation Cardiovascular: Hypertensive emergency -no longer requiring nicardipine drip -continue home amlodipine, metoprolol -continue hydralazine po cyndi and IV prn per cardio recs -continue verapamil for HR >110 -will consider resuming home lisinopril if HTN still uncontrolled -clonidine patch was removed upon start of nicardipine drip -lasix/spironolactone/lisinopril on hold d/t LEIGHA Acute on Chronic HFpEF -reduce cardiac output d/t diastolic dysfunction, causing cardiorenal syndrome -currently holding lasix/spironolactone d/t LEIGHA CAD s/p CABG -not a candidate for cardiac cath d/t LEIGHA -continue home atorvastatin, Paroxysmal Atrial Fibrillation w/ RA/RV pacemaker -continue home metoprolol for rate control, -will resume eliquis today. Will coordinate with GI team regarding endoscopy. -pacemaker interrogation done recently, per osiris Mild-Moderate TR/MR RVSP 55mmHg with mild-mod dilation of RV. RVSF mil-mod reduced. PM in RA/RV -continue home sildenafil to reduce R sided afterload, continue antihypertensives to reduce L sided afterload Pulm: Hypercapnic Respiratory Failure -Hypercapnea resolved on todays ABG. Will attempt weaning trial today -continue VAP bundle: HOB>40 degrees, GI/DVT Ppx, daily mouth care with chlorhexidine, daily sedation vacation/weaning trials RLL Pneumonia -continue meropenem per ID recs -ID following Mild-Moderate Pulmonary Hypertension -continue home sildenafil Acute on Chronic COPD Exacerbation -budesonide IH, xopenex cyndi, continue duoneb prn & home montelukast -continue solu-medrol 40mg IVP Q12 per pulm recs GI: Abdominal Pain -OG tube in place. Will continue administering oral medications via OGT -GI following -CT Abd/Pelvis reveals perinephric changes L>R. Potential pyelonephritis. Covered with meropenem -Diverticulosis seen on CT, GI following /Renal: LEIGHA on CKD4 -2/2 cardiorenal syndrome -will continue to hold lasix/spironolactone ID: RLL Pneumonia -continue meropenem -procalcitonin dowtrending -ID following Heme: Normocytic Anemia -Likely 2/2 from stool occult blood. s/p 1u pRBC 10/21/18 -continue to hold NSAIDs. Will resume eliquis per GI recs -continue PPI -will repeat CT Abdomen with oral contrast when more stable -GI following. No plans for endoscopy currently as there aren't signs of active bleeding Endocrine: NIDDM -continue sliding scale insulin F/E/N: -Holding fluids given cardiorenal syndrome. GI/DVT: protonix/SCD Dispo: Will attempt extubation today Case seen, examined and discussed with attending physician, Dr. Zafar. Further recs per him Kitty Tovar PGY1 <CharismaBilleo - Last Filed: 10/25/18 15:17> CCU Objective - Vital Signs / Intake & Output Vital Signs (Last 4 hours): Vital Signs Temp Pulse Resp BP Pulse Ox 10/25/18 14:10 70 96 10/25/18 14:00 90 181/161 H 100 10/25/18 13:50 82 98 10/25/18 13:40 77 98 10/25/18 13:30 69 146/61 100 10/25/18 13:20 71 18 100 10/25/18 13:10 72 99 10/25/18 13:00 68 134/36 L 98 10/25/18 12:50 67 98 10/25/18 12:40 67 97 10/25/18 12:30 66 120/44 L 96 10/25/18 12:20 72 97 10/25/18 12:10 77 98 10/25/18 12:00 98.4 F 93 H 18 165/61 H 98 10/25/18 11:50 76 98 10/25/18 11:40 72 99 10/25/18 11:30 81 152/63 H 98 10/25/18 11:20 78 99 Intake and Output (Last 8hrs): Intake & Output 10/25/18 10/25/18 10/25/18 06:59 14:59 22:59 Intake Total 500 Output Total 600 Balance -100 Intake: IV 500 Right Forearm 100 Right Hand 300 Oral 0 Output: Urine 600 Urethral ([place]) 600 Other: # Bowel Movements 0 - Medications Active Medications: Active Medications Generic Name Dose Route Start Last Admin Trade Name Freq PRN Reason Stop Dose Admin Acetaminophen 650 mg 10/18/18 19:35 10/21/18 16:47 Tylenol 325mg Tab PO 650 mg Q6H PRN Administration Fever >100.4 F Albuterol/Ipratropium 3 ml 10/18/18 19:35 10/19/18 10:38 Duoneb 3 Mg/0.5 Mg (3 Ml) Ud IH 3 ml Q2H PRN Administration Shortness of Breath Amlodipine Besylate 10 mg 10/23/18 12:15 10/25/18 09:01 Norvasc PO 10 mg DAILY CYNDI Administration Apixaban 2.5 mg 10/18/18 19:30 10/21/18 17:07 Eliquis PO 2.5 mg BID CYNDI Administration Protocol Atorvastatin Calcium 40 mg 10/19/18 10:00 10/25/18 09:02 Lipitor PO 40 mg DAILY CYNDI Administration Budesonide 0.5 mg 10/22/18 08:00 10/25/18 07:00 Pulmicort Respules IH 0.5 mg [id number] CYNDI Administration Folic Acid 1 mg 10/19/18 10:00 10/25/18 09:09 Folic Acid PO 1 mg DAILY CYNDI Administration Furosemide 40 mg 10/19/18 10:00 10/25/18 10:40 Lasix IVP 40 mg DAILY CYNDI Administration Hydralazine HCl 50 mg 10/22/18 18:00 10/25/18 09:06 Apresoline PO 50 mg BID CYNDI Administration Hydralazine HCl 10 mg 10/23/18 17:33 Apresoline IVP Q4 PRN SBP > 180 Nicardipine HCl 20 mg in 200 mls @ 50 mls/hr 10/23/18 12:16 10/24/18 07:15 Cardene Iv Premix IV 0 mg/hr .Q4H PRN 0 mls/hr TITRATE PER MD ORDER Titration Protocol 5 MG/HR Propofol 1,000 mg in 100 mls @ 2.879 mls/hr 10/23/18 13:33 10/25/18 06:53 Diprivan IV 0 mcg/kg/min .Q24H PRN 0 mls/hr TITRATE PER MD ORDER Titration Protocol 5 MCG/KG/MIN Midazolam 100 mg/100ml in NS 100 mg in 100 mls @ 1 mls/hr 10/23/18 14:09 10/25/18 06:53 Midazolam 100 Mg/100ml In Ns IV 0 mg/hr .Q24H PRN 0 mls/hr Sedation Titration Protocol 1 MG/HR Meropenem 250 mg/ Sodium 100 mls @ 100 mls/hr 10/24/18 10:15 10/25/18 09:39 Chloride IVPB 10/31/18 10:16 100 mls/hr Q12H CYNDI Administration Protocol Insulin Human Regular 0 units 10/18/18 22:00 10/25/18 12:05 Humulin R High SC 10 units ACHS CYNDI Administration Protocol Levalbuterol HCl 1.25 mg 10/18/18 20:00 10/25/18 13:16 Xopenex IH 1.25 mg [id number] CYNDI Administration Methylprednisolone 40 mg 10/24/18 10:00 10/25/18 09:01 Solu-Medrol IVP 40 mg Q12 CYNDI Administration Metoprolol Tartrate 50 mg 10/18/18 19:30 10/25/18 09:02 Lopressor PO 50 mg BID CYNDI Administration Montelukast Sodium 10 mg 10/18/18 22:00 10/24/18 21:59 Singulair PO 10 mg HS CYNDI Administration Ondansetron HCl 4 mg 10/18/18 19:35 10/19/18 07:55 Zofran Inj IVP 4 mg Q6H PRN Administration Nausea/Vomiting Pantoprazole Sodium 40 mg 10/25/18 10:00 10/25/18 09:01 Protonix Inj IVP 40 mg DAILY CYNDI Administration Polyethylene Glycol 17 gm 10/25/18 18:00 Miralax PO BID CYNDI Pregabalin 75 mg 10/18/18 19:30 10/24/18 09:45 Lyrica PO 75 mg BID CYNDI Administration Sildenafil Citrate 20 mg 10/19/18 10:00 10/25/18 09:02 Revatio PO 20 mg BID CYNDI Administration Verapamil HCl 2.5 mg 10/24/18 12:34 Verapamil Inj IVP Q6H PRN for Heart rate >120 - Patient Studies Lab Studies: Microbiology Studies 10/23/18 14:00 Blood Culture - Preliminary Blood NO GROWTH AFTER 48 HOURS 10/23/18 19:00 MRSA Culture (Admit) - Final Naris MRSA NOT DETECTED 10/24/18 12:06 Urine Culture - Final Urine,Catheterized No Growth (<1,000 CFU/ML) Lab Studies 10/25/18 10/25/18 10/25/18 Range/Units 11:47 07:37 06:00 WBC (4.5-11.0) 10^3/uL RBC (3.5-6.1) 10^6/uL Hgb (12.0-16.0) g/dL Hct (36.0-48.0) % MCV (80.0-105.0) fl MCH (25.0-35.0) pg MCHC (31.0-37.0) g/dl RDW (11.5-14.5) % Plt Count (120.0-450.0) 10^3/uL Neut % (Auto) (50.0-68.0) % Lymph % (Auto) (22.0-35.0) % [place] % (Auto) (1.0-6.0) % Eos % (Auto) (1.5-5.0) % Baso % (Auto) (0.0-3.0) % Lymph # (Auto) (1.2-3.4) [place] # (Auto) (0.1-0.6) Eos # (Auto) (0.0-0.7) Baso # (Auto) (0.0-2.0) K/mm3 Absolute Neuts (auto) (1.4-6.5) Differential Comment pCO2 33 L (35-45) mm/Hg pO2 191.0 H (80-100) mm/Hg HCO3 25.7 (21-28) mmol/L ABG pH 7.50 H (7.35-7.45) ABG Total CO2 26.7 (22-28) mmol.L ABG O2 Saturation 100.1 H (95-98) % ABG O2 Content 12.7 L (15-23) ML/dl ABG Base Excess 2.6 (-2.0-3.0) mmol/L ABG Hemoglobin 9.0 L (11.7-17.4) g/dL ABG Carboxyhemoglobin 2.1 H (0.5-1.5) % POC ABG HHb (Measured) -0.1 L (0-5) % ABG Methemoglobin 1.1 (0.0-3.0) % ABG O2 Capacity 12.7 L (16-24) mL/dl Hgb O2 Saturation 96.8 (95.0-98.0) % FiO2 40.0 % Sodium (132-148) mmol/L Potassium (3.6-5.0) mmol/L Chloride (98-107) mmol/L Carbon Dioxide (21-33) mmol/L Anion Gap (10-20) BUN (7-21) mg/dL Creatinine (0.7-1.2) mg/dl Est GFR ( Amer) Est GFR (Non-Af Amer) POC Glucose (mg/dL) 328 H 276 H (65-110) mg/dL Random Glucose (70-110) mg/dL Calcium (8.4-10.5) mg/dL Phosphorus (2.5-4.5) mg/dL Magnesium (1.7-2.2) mg/dL Total Bilirubin (0.2-1.3) mg/dL AST (14-36) U/L ALT (7-56) U/L Alkaline Phosphatase (38-126) U/L Total Protein (5.8-8.3) g/dL Albumin (3.0-4.8) g/dL Globulin gm/dL Albumin/Globulin Ratio (1.1-1.8) Procalcitonin (0.19-0.49) NG/ML 10/25/18 10/25/18 10/24/18 Range/Units 05:10 05:10 21:49 WBC 5.9 D (4.5-11.0) 10^3/uL RBC 3.36 L (3.5-6.1) 10^6/uL Hgb 9.2 L (12.0-16.0) g/dL Hct 29.8 L (36.0-48.0) % MCV 88.7 D (80.0-105.0) fl MCH 27.4 (25.0-35.0) pg MCHC 30.9 L (31.0-37.0) g/dl RDW 17.0 H (11.5-14.5) % Plt Count 179 (120.0-450.0) 10^3/uL Neut % (Auto) 86.5 H (50.0-68.0) % Lymph % (Auto) 7.3 L (22.0-35.0) % [place] % (Auto) 5.8 (1.0-6.0) % Eos % (Auto) 0.2 L (1.5-5.0) % Baso % (Auto) 0.2 (0.0-3.0) % Lymph # (Auto) 0.4 L (1.2-3.4) [place] # (Auto) 0.3 (0.1-0.6) Eos # (Auto) 0.0 (0.0-0.7) Baso # (Auto) 0.01 (0.0-2.0) K/mm3 Absolute Neuts (auto) 5.10 (1.4-6.5) Differential Comment pCO2 (35-45) mm/Hg pO2 (80-100) mm/Hg HCO3 (21-28) mmol/L ABG pH (7.35-7.45) ABG Total CO2 (22-28) mmol.L ABG O2 Saturation (95-98) % ABG O2 Content (15-23) ML/dl ABG Base Excess (-2.0-3.0) mmol/L ABG Hemoglobin (11.7-17.4) g/dL ABG Carboxyhemoglobin (0.5-1.5) % POC ABG HHb (Measured) (0-5) % ABG Methemoglobin (0.0-3.0) % ABG O2 Capacity (16-24) mL/dl Hgb O2 Saturation (95.0-98.0) % FiO2 % Sodium 149 H (132-148) mmol/L Potassium 3.5 L (3.6-5.0) mmol/L Chloride 112 H (98-107) mmol/L Carbon Dioxide 28 (21-33) mmol/L Anion Gap 12 (10-20) BUN 73 H (7-21) mg/dL Creatinine 2.1 H (0.7-1.2) mg/dl Est GFR ( Amer) 28 Est GFR (Non-Af Amer) 23 POC Glucose (mg/dL) 249 H (65-110) mg/dL Random Glucose 306 H* D (70-110) mg/dL Calcium 9.4 (8.4-10.5) mg/dL Phosphorus 2.8 (2.5-4.5) mg/dL Magnesium 2.5 H (1.7-2.2) mg/dL Total Bilirubin 0.6 (0.2-1.3) mg/dL AST 16 (14-36) U/L ALT 21 (7-56) U/L Alkaline Phosphatase 71 (38-126) U/L Total Protein 6.6 (5.8-8.3) g/dL Albumin 3.4 (3.0-4.8) g/dL Globulin 3.2 gm/dL Albumin/Globulin Ratio 1.1 (1.1-1.8) Procalcitonin (0.19-0.49) NG/ML 10/24/18 10/24/18 10/24/18 Range/Units 15:48 11:15 10:15 WBC (4.5-11.0) 10^3/uL RBC (3.5-6.1) 10^6/uL Hgb (12.0-16.0) g/dL Hct (36.0-48.0) % MCV (80.0-105.0) fl MCH (25.0-35.0) pg MCHC (31.0-37.0) g/dl RDW (11.5-14.5) % Plt Count (120.0-450.0) 10^3/uL Neut % (Auto) (50.0-68.0) % Lymph % (Auto) (22.0-35.0) % [place] % (Auto) (1.0-6.0) % Eos % (Auto) (1.5-5.0) % Baso % (Auto) (0.0-3.0) % Lymph # (Auto) (1.2-3.4) [place] # (Auto) (0.1-0.6) Eos # (Auto) (0.0-0.7) Baso # (Auto) (0.0-2.0) K/mm3 Absolute Neuts (auto) (1.4-6.5) Differential Comment pCO2 (35-45) mm/Hg pO2 (80-100) mm/Hg HCO3 (21-28) mmol/L ABG pH (7.35-7.45) ABG Total CO2 (22-28) mmol.L ABG O2 Saturation (95-98) % ABG O2 Content (15-23) ML/dl ABG Base Excess (-2.0-3.0) mmol/L ABG Hemoglobin (11.7-17.4) g/dL ABG Carboxyhemoglobin (0.5-1.5) % POC ABG HHb (Measured) (0-5) % ABG Methemoglobin (0.0-3.0) % ABG O2 Capacity (16-24) mL/dl Hgb O2 Saturation (95.0-98.0) % FiO2 % Sodium (132-148) mmol/L Potassium (3.6-5.0) mmol/L Chloride (98-107) mmol/L Carbon Dioxide (21-33) mmol/L Anion Gap (10-20) BUN (7-21) mg/dL Creatinine (0.7-1.2) mg/dl Est GFR ( Amer) Est GFR (Non-Af Amer) POC Glucose (mg/dL) 272 H 205 H (65-110) mg/dL Random Glucose (70-110) mg/dL Calcium (8.4-10.5) mg/dL Phosphorus (2.5-4.5) mg/dL Magnesium (1.7-2.2) mg/dL Total Bilirubin (0.2-1.3) mg/dL AST (14-36) U/L ALT (7-56) U/L Alkaline Phosphatase (38-126) U/L Total Protein (5.8-8.3) g/dL Albumin (3.0-4.8) g/dL Globulin gm/dL Albumin/Globulin Ratio (1.1-1.8) Procalcitonin 2.95 H (0.19-0.49) NG/ML Laboratory Results - last 24 hr 10/24/18 10/24/18 10/24/18 10:15 11:15 15:48 WBC RBC Hgb Hct MCV MCH MCHC RDW Plt Count Neut % (Auto) Lymph % (Auto) [place] % (Auto) Eos % (Auto) Baso % (Auto) Lymph # (Auto) [place] # (Auto) Eos # (Auto) Baso # (Auto) Absolute Neuts (auto) Differential Comment pCO2 pO2 HCO3 ABG pH ABG Total CO2 ABG O2 Saturation ABG O2 Content ABG Base Excess ABG Hemoglobin ABG Carboxyhemoglobin POC ABG HHb (Measured) ABG Methemoglobin ABG O2 Capacity Hgb O2 Saturation FiO2 Sodium Potassium Chloride Carbon Dioxide Anion Gap BUN Creatinine Est GFR ( Amer) Est GFR (Non-Af Amer) POC Glucose (mg/dL) 205 H 272 H Random Glucose Calcium Phosphorus Magnesium Total Bilirubin AST ALT Alkaline Phosphatase Total Protein Albumin Globulin Albumin/Globulin Ratio Procalcitonin 2.95 H 10/24/18 10/25/18 10/25/18 21:49 05:10 05:10 WBC 5.9 D RBC 3.36 L Hgb 9.2 L Hct 29.8 L MCV 88.7 D MCH 27.4 MCHC 30.9 L RDW 17.0 H Plt Count 179 Neut % (Auto) 86.5 H Lymph % (Auto) 7.[address] [place] % (Auto) 5.8 Eos % (Auto) 0.2 L Baso % (Auto) 0.2 Lymph # (Auto) 0.[address] [place] # (Auto) 0.3 Eos # (Auto) 0.0 Baso # (Auto) 0.01 Absolute Neuts (auto) 5.10 Differential Comment pCO2 pO2 HCO3 ABG pH ABG Total CO2 ABG O2 Saturation ABG O2 Content ABG Base Excess ABG Hemoglobin ABG Carboxyhemoglobin POC ABG HHb (Measured) ABG Methemoglobin ABG O2 Capacity Hgb O2 Saturation FiO2 Sodium 149 H Potassium 3.5 L Chloride 112 H Carbon Dioxide 28 Anion Gap 12 BUN 73 H Creatinine 2.1 H Est GFR ( Amer) 28 Est GFR (Non-Af Amer) 23 POC Glucose (mg/dL) 249 H Random Glucose 306 H* D Calcium 9.4 Phosphorus 2.8 Magnesium 2.5 H Total Bilirubin 0.6 AST 16 ALT 21 Alkaline Phosphatase 71 Total Protein 6.6 Albumin 3.4 Globulin 3.2 Albumin/Globulin Ratio 1.1 Procalcitonin 10/25/18 10/25/18 10/25/18 06:00 07:37 11:47 WBC RBC Hgb Hct MCV MCH MCHC RDW Plt Count Neut % (Auto) Lymph % (Auto) [place] % (Auto) Eos % (Auto) Baso % (Auto) Lymph # (Auto) [place] # (Auto) Eos # (Auto) Baso # (Auto) Absolute Neuts (auto) Differential Comment pCO2 33 L pO2 191.0 H HCO3 25.7 ABG pH 7.50 H ABG Total CO2 26.7 ABG O2 Saturation 100.1 H ABG O2 Content 12.7 L ABG Base Excess 2.6 ABG Hemoglobin 9.0 L ABG Carboxyhemoglobin 2.1 H POC ABG HHb (Measured) -0.1 L ABG Methemoglobin 1.1 ABG O2 Capacity 12.7 L Hgb O2 Saturation 96.8 FiO2 40.0 Sodium Potassium Chloride Carbon Dioxide Anion Gap BUN Creatinine Est GFR ( Amer) Est GFR (Non-Af Amer) POC Glucose (mg/dL) 276 H 328 H Random Glucose Calcium Phosphorus Magnesium Total Bilirubin AST ALT Alkaline Phosphatase Total Protein Albumin Globulin Albumin/Globulin Ratio Procalcitonin Radiology Impressions: Radiology Impressions Chest X-Ray 10/25/18 06:00 IMPRESSION: No active disease. Critical Care Progress Note - Nutrition Nutrition: Nutrition Category Date Time Status NPO Diet [DIET] Diets 10/24/18 Dinner Ordered Addendum Addendum: 10/25/18 15:16 MICU Attending Addendum Patient seen and examined with housestaff agree with resident note above with the following add/exceptions: 73 F HTN, CAD s/p CABG(06/14/14), paroxysmal Afib s/p PM placement on home eliquis, mild-mod pulm HTN (RVSP 55mmHg), COPD on home O2, HFpEF, CKD4, NIDDM admitted to ICU for hypertensive emergency complicated by ventilator dependent hypercapnic respiratory failure. Pulm exam stable vent adjusted weaned off sedation, awaiting for her to wake up today plan for SBT and eval for extubation cont antihtn meds; off nicardipine now on 10/24 we increased norvasc from 5 to 10mg metop 50bid hydral po 50 BID lasix 40 holding home lisinpril 20mg for now holding eliquis for now given +guaic - pending GI d/w with medical team cont revatio for phtn abx as per ID leigha - monitor urine output rest of care as noted above Sarai Zafra MD MICU Attending
--- NOTE | 2018-10-25 08:44 | PN ---
DATE: 10/25/2018([id number]) SUBJECTIVE: The patient remains in the ICU. She remains intubated and sedated. PHYSICAL EXAMINATION: VITAL SIGNS: Temperature is 99.1, pulse is 97, respiratory rate 22/22, blood pressure 138/62. HEENT: Normocephalic, atraumatic. No JVD. CARDIOVASCULAR: Systolic ejection murmur at the lower left sternal border. Positive S3 gallop. LUNGS: Minimal crackles at the bases. Much less/minimal rhonchi. No wheezing. EXTREMITIES: Minimal edema. No cyanosis, no clubbing. GASTROINTESTINAL: Abdomen is soft, nondistended. Bowel sounds are positive. SKIN: No acute rash. NEUROLOGIC: Exam limited at the present time. PERTINENT LABORATORY DATA: Chest x-ray was done this morning and reviewed. The chest x-ray shows definite improvement - with decreased pulmonary vascular congestion. There are also much less right lower lobe changes. Official results are pending. Arterial blood gas was done on PRVC 22, tidal volume 420, FIO2 40%, PEEP of 5. Results are: PH 7.50, pCO2 of 33, pO2 of 191. IMPRESSION: 1. Respiratory failure. 2. Acute congestive heart failure. 3. Advanced chronic obstructive pulmonary disease. 4. Right lower lobe pneumonia. 5. Rule out myocardial infarction. 6. Paroxysmal atrial fibrillation. 7. Renal insufficiency. PLAN: The patient remains in the ICU. She remains sedated and on the ventilator. I did discuss the case with the night nurse at length. The night nurse stated that the patient had a good night. I did review the chest x-ray from this morning. Findings are noted above. The chest x-ray shows definite improvement. Official results are pending. I have also reviewed the arterial blood gas. There is now a respiratory alkalosis with a significant decrease in the alveolar-arterial gradient. I will decrease the minute ventilation this morning. Weaning trials should be considered. On physical exam, there is much less bronchospasm noted. I will continue with the current nebulizer treatments and intravenous steroids (increased yesterday) for now. Inputs by Cardiology, Renal, Infectious Disease are also noted. Clinical status of the patient is definitely improved - compared to a few days ago. She does remain very guarded overall. I will discuss the above with the entire ICU team in the next few moments. I will also discuss the above with the attending physician later this morning. Bhupinder Chiang MD [facility]
[2018-10-25] MEDS: Pantoprazole 40 mg EC Tab PO SCH (08:45)
[2018-10-25] MEDS: MethylPREDNISolone 40 mg Vial IVP SCH ×2 (09:01→22:15)
[2018-10-25] MEDS: Sildenafil 20 MG TAB PO SCH ×2 (09:02→18:17)
--- NOTE | 2018-10-25 09:20 | RAD ---
Date of service: 10/25/2018 HISTORY: intubated COMPARISON: 10/24/2018 FINDINGS: LUNGS: No active pulmonary disease. PLEURA: No significant pleural effusion identified, no pneumothorax apparent. CARDIOVASCULAR: Aortic calcification Normal cardiac size. No pulmonary vascular congestion. OSSEOUS STRUCTURES: Sternal wires. Dual lead pacemaker VISUALIZED UPPER ABDOMEN: Normal. OTHER FINDINGS: The endotracheal tube and nasogastric tube are in satisfactory position IMPRESSION: No active disease.
[2018-10-25] MEDS ORDERED: Potassium Chloride 20 mEq/15 ml LIQ UD PO STA (09:42)
--- NOTE | 2018-10-25 10:49 | CP.PCM.PN ---
<EdiliaDakota - Last Filed: 10/25/18 17:39> Subjective - Date & Time of Evaluation Date of Evaluation: 10/25/18 Time of Evaluation: 10:46 - Subjective Subjective: patient is intubated. No acute overnight events. no obvious bleeding. She has not had a bowel movement in some time. CT scan from yesterday showed retained colonic stool. Objective - Vital Signs/Intake and Output Vital Signs (last 24 hours): Temp Pulse Resp BP Pulse Ox 99 F 80 23 145/56 L 99 10/25/18 04:15 10/25/18 09:06 10/25/18 08:41 10/25/18 09:06 10/25/18 08:41 Intake and Output: 10/25/18 10/25/18 06:59 18:59 Intake Total 500 Output Total 600 Balance -100 - Medications Medications: Current Medications Acetaminophen (Tylenol 325mg Tab) 650 mg PO Q6H PRN PRN Reason: Fever >100.4 F Last Admin: 10/21/18 16:47 Dose: 650 mg Albuterol/Ipratropium (Duoneb 3 Mg/0.5 Mg (3 Ml) Ud) 3 ml IH Q2H PRN PRN Reason: Shortness of Breath Last Admin: 10/19/18 10:38 Dose: 3 ml Amlodipine Besylate (Norvasc) 10 mg PO DAILY [facility] Last Admin: 10/25/18 09:01 Dose: 10 mg Apixaban (Eliquis) 2.5 mg PO BID [facility]; Protocol Last Admin: 10/21/18 17:07 Dose: 2.5 mg Atorvastatin Calcium (Lipitor) 40 mg PO DAILY [facility] Last Admin: 10/25/18 09:02 Dose: 40 mg Budesonide (Pulmicort Respules) 0.5 mg IH [id number] [facility] Last Admin: 10/24/18 20:30 Dose: 0.5 mg Folic Acid (Folic Acid) 1 mg PO DAILY [facility] Last Admin: 10/25/18 09:09 Dose: 1 mg Furosemide (Lasix) 40 mg IVP DAILY [facility] Last Admin: 10/20/18 09:25 Dose: 40 mg Furosemide (Lasix) 40 mg IV ONCE ONE Stop: 10/25/18 15:01 Heparin Sodium (Porcine) (Heparin) 5,000 units SC Q8 [facility]; Protocol Last Admin: 10/25/18 05:59 Dose: 5,000 units Hydralazine HCl (Apresoline) 50 mg PO BID [facility] Last Admin: 10/25/18 09:06 Dose: 50 mg Hydralazine HCl (Apresoline) 10 mg IVP Q4 PRN PRN Reason: SBP > 180 Nicardipine HCl (Cardene Iv Premix) 20 mg in 200 mls @ 50 mls/hr IV .Q4H PRN; Protocol PRN Reason: TITRATE PER MD ORDER Last Titration: 10/24/18 07:15 Dose: 0 mg/hr, 0 mls/hr Propofol (Diprivan) 1,000 mg in 100 mls @ 2.879 mls/hr IV .Q24H PRN; Protocol PRN Reason: TITRATE PER MD ORDER Last Titration: 10/25/18 06:53 Dose: 0 mcg/kg/min, 0 mls/hr Midazolam 100 mg/100ml in NS (Midazolam 100 Mg/100ml In Ns) 100 mg in 100 mls @ 1 mls/hr IV .Q24H PRN; Protocol PRN Reason: Sedation Last Titration: 10/25/18 06:53 Dose: 0 mg/hr, 0 mls/hr Meropenem 250 mg/ Sodium (Chloride) 100 mls @ 100 mls/hr IVPB Q12H [facility]; Protocol Stop: 10/31/18 10:16 Last Admin: 10/25/18 09:39 Dose: 100 mls/hr Potassium Chloride (Potassium Chloride 10 Meq/100 Ml) 10 meq in 100 mls @ 50 mls/hr IVPB Q2H [facility] Stop: 10/25/18 11:29 Last Admin: 10/25/18 10:30 Dose: 50 mls/hr Insulin Human Regular (Humulin R High) 0 units SC ACHS [facility]; Protocol Last Admin: 10/25/18 07:54 Dose: 7 units Levalbuterol HCl (Xopenex) 1.25 mg IH [id number] [facility] Last Admin: 10/25/18 06:59 Dose: 1.25 mg Methylprednisolone (Solu-Medrol) 40 mg IVP Q12 [facility] Last Admin: 10/25/18 09:01 Dose: 40 mg Metoprolol Tartrate (Lopressor) 50 mg PO BID [facility] Last Admin: 10/25/18 09:02 Dose: 50 mg Montelukast Sodium (Singulair) 10 mg PO HS [facility] Last Admin: 10/24/18 21:59 Dose: 10 mg Ondansetron HCl (Zofran Inj) 4 mg IVP Q6H PRN PRN Reason: Nausea/Vomiting Last Admin: 10/19/18 07:55 Dose: 4 mg Pantoprazole Sodium (Protonix Inj) 40 mg IVP DAILY [facility] Last Admin: 10/25/18 09:01 Dose: 40 mg Pregabalin (Lyrica) 75 mg PO BID [facility] Last Admin: 10/24/18 09:45 Dose: 75 mg Sildenafil Citrate (Revatio) 20 mg PO BID [facility] Last Admin: 10/25/18 09:02 Dose: 20 mg Verapamil HCl (Verapamil Inj) 2.5 mg IVP Q6H PRN PRN Reason: for Heart rate >120 - Labs Labs: 10/25/18 05:10 10/25/18 05:10 PT 14.8 SECONDS (9.4-12.5) H 10/23/18 14:00 INR 1.33 10/23/18 14:00 APTT 26.6 Seconds (26.9-38.3) L 10/23/18 14:00 - Constitutional Appears: No Acute Distress, Chronically Ill - Head Exam Head Exam: ATRAUMATIC, NORMAL INSPECTION - Respiratory Exam Respiratory Exam: Clear to Ausculation Bilateral, NORMAL BREATHING PATTERN Additional comments: intubated - GI/Abdominal Exam GI & Abdominal Exam: Soft, Normal Bowel Sounds. absent: Tenderness - Extremities Exam Extremities Exam: absent: Normal Inspection, Pedal Edema - Neurological Exam Neurological Exam: absent: Alert, Awake - Skin Skin Exam: Dry, Normal Color Assessment and Plan - Assessment and Plan (Free Text) Assessment: #Suspected occult GI bleed #Reported hx of PUD #Iron deficiency anemia #Pneumonia #NSTEMI #Atrial fibrillation on oral anticoagulation #Pulmonary hypertension #CAD #COPD #CKD Plan: CT reviewed. No obvious GI mass. Positive retained colonic stool. -Continue supportive/ICU care -EGD contraindicated at this time -Continue PPI -OK to start Eliquis for high risk thrombosis. We discussed risk and benefits with family, and they understand. Continue to monitor Hb. -Start bowel regimen -Consider supplementing iron IV when stable, non-septic, defer to primary. Case discussed with Dr. Miranda, see attestation. <Keegan Miranda V - Last Filed: 10/25/18 23:15> Objective - Vital Signs/Intake and Output Vital Signs (last 24 hours): Temp Pulse Resp BP Pulse Ox 99.2 F 116 H 16 138/53 L 100 10/25/18 22:00 10/25/18 22:00 10/25/18 18:00 10/25/18 18:30 10/25/18 18:50 Intake and Output: 10/25/18 10/26/18 18:59 06:59 Intake Total 900 Output Total 500 Balance 400 - Medications Medications: Current Medications Acetaminophen (Tylenol 325mg Tab) 650 mg PO Q6H PRN PRN Reason: Fever >100.4 F Last Admin: 10/21/18 16:47 Dose: 650 mg Albuterol/Ipratropium (Duoneb 3 Mg/0.5 Mg (3 Ml) Ud) 3 ml IH Q2H PRN PRN Reason: Shortness of Breath Last Admin: 10/19/18 10:38 Dose: 3 ml Amlodipine Besylate (Norvasc) 10 mg PO DAILY [facility] Last Admin: 10/25/18 09:01 Dose: 10 mg Apixaban (Eliquis) 2.5 mg PO BID [facility]; Protocol Last Admin: 10/25/18 17:10 Dose: 2.5 mg Atorvastatin Calcium (Lipitor) 40 mg PO DAILY [facility] Last Admin: 10/25/18 09:02 Dose: 40 mg Budesonide (Pulmicort Respules) 0.5 mg IH [id number] [facility] Last Admin: 10/25/18 20:25 Dose: 0.5 mg Folic Acid (Folic Acid) 1 mg PO DAILY [facility] Last Admin: 10/25/18 09:09 Dose: 1 mg Furosemide (Lasix) 40 mg IVP DAILY [facility] Last Admin: 10/25/18 10:40 Dose: 40 mg Hydralazine HCl (Apresoline) 50 mg PO BID [facility] Last Admin: 10/25/18 17:10 Dose: 50 mg Hydralazine HCl (Apresoline) 10 mg IVP Q4 PRN PRN Reason: SBP > 180 Nicardipine HCl (Cardene Iv Premix) 20 mg in 200 mls @ 50 mls/hr IV .Q4H PRN; Protocol PRN Reason: TITRATE PER MD ORDER Last Titration: 10/24/18 07:15 Dose: 0 mg/hr, 0 mls/hr Propofol (Diprivan) 1,000 mg in 100 mls @ 2.879 mls/hr IV .Q24H PRN; Protocol PRN Reason: TITRATE PER MD ORDER Last Titration: 10/25/18 06:53 Dose: 0 mcg/kg/min, 0 mls/hr Midazolam 100 mg/100ml in NS (Midazolam 100 Mg/100ml In Ns) 100 mg in 100 mls @ 1 mls/hr IV .Q24H PRN; Protocol PRN Reason: Sedation Last Titration: 10/25/18 06:53 Dose: 0 mg/hr, 0 mls/hr Meropenem 250 mg/ Sodium (Chloride) 100 mls @ 100 mls/hr IVPB Q12H [facility]; Protocol Stop: 10/31/18 10:16 Last Admin: 10/25/18 22:16 Dose: 100 mls/hr Insulin Human Regular (Humulin R High) 0 units SC ACHS [facility]; Protocol Last Admin: 10/25/18 22:15 Dose: 2 units Levalbuterol HCl (Xopenex) 1.25 mg IH [id number] [facility] Last Admin: 10/25/18 20:25 Dose: 1.25 mg Methylprednisolone (Solu-Medrol) 40 mg IVP Q12 [facility] Last Admin: 10/25/18 22:15 Dose: 40 mg Metoprolol Tartrate (Lopressor) 50 mg PO BID [facility] Last Admin: 10/25/18 17:11 Dose: 50 mg Montelukast Sodium (Singulair) 10 mg PO HS [facility] Last Admin: 10/25/18 22:16 Dose: 10 mg Ondansetron HCl (Zofran Inj) 4 mg IVP Q6H PRN PRN Reason: Nausea/Vomiting Last Admin: 10/19/18 07:55 Dose: 4 mg Pantoprazole Sodium (Protonix Inj) 40 mg IVP DAILY [facility] Last Admin: 10/25/18 09:01 Dose: 40 mg Polyethylene Glycol (Miralax) 17 gm PO BID [facility] Last Admin: 10/25/18 17:12 Dose: 17 gm Pregabalin (Lyrica) 75 mg PO BID [facility] Last Admin: 10/24/18 09:45 Dose: 75 mg Sildenafil Citrate (Revatio) 20 mg PO BID [facility] Last Admin: 10/25/18 18:17 Dose: 20 mg Verapamil HCl (Verapamil Inj) 2.5 mg IVP Q6H PRN PRN Reason: for Heart rate >120 - Labs Labs: 10/25/18 05:10 10/25/18 05:10 PT 14.8 SECONDS (9.4-12.5) H 10/23/18 14:00 INR 1.33 10/23/18 14:00 APTT 26.6 Seconds (26.9-38.3) L 10/23/18 14:00 Attending/Attestation - Attestation I have personally seen and examined this patient.: Yes I have fully participated in the care of the patient.: Yes I have reviewed all pertinent clinical information, including history, physical exam and plan: Yes Notes (Text): This is an addendum to GI progress report dictated by the GI Fellow. The patient was seen and examined earlier. Medical records, lab studies, imagings were reviewed. Last 24 hours events reviewed. Agreed with the above treatment plan as outlined in GI Fellow 's notes with the addition of the following Discussed with the patient's daughter Risk benefits and alternatives of anticoagulation explained If needed patient can be started on anticoagulation with close monitoring of hemoglobin hematocrit CT scan was reviewed 10/25/18 23:13
--- NOTE | 2018-10-25 14:51 | PN ---
DATE: 10/25/2018 REASON FOR CONSULTATION AND FOLLOWUP: History of coronary artery disease, CABG, history of PTCA, admitted with shortness of breath, status post pacemaker, atrial fibrillation, worsening renal insufficiency, worsening respiratory status, status post intubated, moved to ICU. SUBJECTIVE: The patient is currently being intubated. Daughter, Yudy, is at the bedside. OBJECTIVE: GENERAL: Not in apparent distress, sedated. VITAL SIGNS: As follows, temperature afebrile, heart rate 80, blood pressure 145/56. HEENT: PERRLA. Extraocular muscles intact. NECK: Supple. No carotid bruit or thyromegaly. CHEST: Clear to auscultation. HEART: S1, S2. Regular. ABDOMEN: Soft. EXTREMITIES: Clubbing, cyanosis negative. LABORATORY DATA: Blood workup as follows: WBC 5.9, hemoglobin 9.8, hematocrit 29.5, platelet count 179. Chemistry shows sodium 149, potassium 3.5, chloride 102, carbon dioxide 28, anion gap of 12, BUN 73 and creatinine 2.1. IMPRESSION: A 73-year-old female with past medical history significant for chronic atrial fibrillation, coronary artery disease, status post coronary artery bypass graft, status post percutaneous transluminal coronary angioplasty in the past, morbid obesity, pulmonary hypertension, history of coronary artery bypass surgery in 2013, history of knik artery percutaneous transluminal coronary angioplasty in 2014, history of pacemaker, renal insufficiency, atrial fibrillation, admitted with possible pneumonia, right lower lobe, worsening renal insufficiency, worsening renal status, status post intubated, moved to intensive care unit. Now, the patient is currently being intubated, sedated. RECOMMENDATION: Continue gentle diuretics, IV verapamil as tolerated. The patient is unable to take p.o. before intubation, now the patient has NG tube. Resume back p.o. medication. Keep negative fluid balance. Continue Lasix p.r.n. Continue broad-spectrum antibiotic for pneumonia and continue Lasix IV once a day and if needed, we will give extra dose at 3:00 p.m. Continue metoprolol. Continue deep venous thrombosis prophylaxis. When the patient gets extubated, we will resume back anticoagulation, Eliquis. Monitor renal function closely. Overall, the patient's condition is critical. Prognosis is guarded. Creatinine clearance is 23 mL an hour. Discussed with the patient's daughter, Yudy. We will follow with you. We will give 20 KCL elixir. We will give an extra dose of Lasix at 3:00 p.m. Sapna Latif MD
--- NOTE | 2018-10-25 15:58 | PN ---
DATE: 10/25/2018 SUBJECTIVE: The patient is a 73-year-old, remain intubated, sedated on vent. Opens eye on verbal command. PHYSICAL EXAMINATION: VITAL SIGNS: She is afebrile, pulse 80, respirations 18, blood pressure 153/50. LUNGS: Bilateral fair airflow. No rhonchi or crackle. HEART: S1 and S2 audible. ABDOMEN: Soft, obese, and nontender. No rebound. No guarding. NEUROLOGIC: She is sedated, on vent. EXTREMITIES: Bilateral legs . LABORATORY DATA: WBC 5.9, hemoglobin 9.2, hematocrit 29.8, and platelet 175. Chemistry; sodium 149, potassium 3.5, chloride 112, CO2 28, BUN 73, creatinine 2.1, and blood sugar of 328. Urine is growing Pseudomonas aeruginosa. CT scan of abdomen and pelvis consistent with possible pyelonephritis. ASSESSMENT: 1. Respiratory failure. 2. Chronic obstructive pulmonary disease. 3. Hypertension. 4. Pneumonia. 5. Pulmonary hypertension. 6. Coronary artery disease. 7. Anemia. 8. Acute on chronic renal failure. PLAN: Currently the patient is on hydralazine 50 mg twice a day, she is on nebulizer treatment, she is on Eliquis and continue Folic acid, she is getting Lasix 40 mg IV daily, she is on atorvastatin and metoprolol, she is getting meropenem, she is on PPI for GI prophylaxis, she is on Revatio and Singulair, we will continue that; she is on p.r.n. sedation. We will followup her CBC and electrolytes in a.m. Laurel Schultz MD
[2018-10-25] MEDS: POLYETHYLENE GLYCOL 3350 17 GM/Dose PACKET PO SCH (17:12)
--- NOTE | 2018-10-25 18:45 | PN ---
DATE: 10/25/2018 SUBJECTIVE: The patient is currently seen in CCU, Bed 1. She remains on CPAP therapy. The patient's daughter is in the room. She continues to have respiratory distress in the setting of COPD, pneumonia and possible CHF. The patient's BUN and creatinine are slightly higher today. She does remain on intermittent use of Lasix therapy to keep her euvolemic. MEDICATIONS: Medication list reviewed. The patient is currently on hydralazine, p.r.n. Cardene, Diprivan is off. DuoNeb, Eliquis, folic acid, sliding scale insulin, IV Lasix, Lipitor, Lopressor, Lyrica is on hold, meropenem, midazolam, MiraLax, Norvasc, Protonix, Pulmicort, Revatio., Singulair, Solu-Medrol, Tylenol p.r.n., p.r.n. verapamil, Xopenex and Zofran. PHYSICAL EXAMINATION: INTAKE/OUTPUT: Intake is 1390, output is 1200. VITAL SIGNS: Present blood pressure is 146/61. Temperature is 98.4. Respiratory rate is 18 with a pulse of 70. HEENT: Eyes are closed. The patient is intubated and remains on CPAP therapy. NECK: No neck vein distention. CHEST: Scattered rhonchi. No rales. Decreased breath sounds at the bases. CARDIOVASCULAR: Shows a normal S1, S2. Positive MR/TR/AI/. No S3, no S4, no rub. ABDOMEN: Moderately obese. Nondistended. Soft. Bowel sounds normal. EXTREMITIES: Show no lower extremity pitting edema. No cyanosis or clubbing. LABORATORY DATA AND IMAGING: CBC today: White blood cell count 5.9, hemoglobin stable at 9.2 with a platelet count of 179,000. Blood gas today pH 7.5 with a pCO2 of 33 and a pO2 of 191. Chemistries show sodium up to 149, potassium 3.5, chloride 112. BUN 73 with a creatinine of 2.1. Glucose is 306. Calcium 9.4, phosphorus 2.8, magnesium level 2.5. Iron saturations were 7%. Liver enzymes are normal. Influenza both type A and B were positive. Urine for Legionella pneumophila was negative. ANCA screening was negative. Stool occult blood was positive. Microbiology: Sputum culture is positive for yeast. Urine culture is positive for Pseudomonas. Blood culture is positive for coag-negative staph. ASSESSMENT: 1. Acute renal failure superimposed on chronic kidney disease stage III/IV. Her baseline creatinine is in the low to mid 1 range. Her baseline BUN on admission was 37. The patient was admitted with refractory hyperkalemia. There was some thought about the need to do dialysis but with adjustment of medications, her potassium level had improved. The patient also received Kayexalate. The patient no longer is hyperkalemic. Her BUN and creatinine remain mildly elevated with a BUN of 73 and a creatinine of 2.1. She remains on steroids. She remains on diuretic therapy. She has superimposed prerenal azotemia on top of chronic kidney disease stage III. At present, there is no need for any dialytic therapy. 2. History of chronic obstructive pulmonary disease with bilateral pneumonia. The patient had an abdominal, pelvic and chest CT scan done yesterday. She has pulmonary nodules. She has bilateral streaky perinephric changes, left greater than right with the possibility of a left pyelonephritis. No obstructive uropathy. No evidence for diverticulitis. The patient remains intubated. She is currently on continuous positive airway pressure therapy. She is off sedation. 3. History of acute on chronic anemia. Hemoglobin is currently stable at 9.2. She did initially have blood in her stool upon admission to the hospital. 4. History of atherosclerotic heart disease status post coronary artery bypass graft, currently stable. 5. History of non-insulin dependent diabetes mellitus, currently stable on sliding scale insulin. 6. History of pulmonary hypertension with valvular heart disease, currently stable with ejection fraction of 62%. PLAN: 1. We will need to accept a certain degree of prerenal azotemia as the patient remains on diuretic therapy along with steroid therapy. 2. No role for any dialysis here as her hyperkalemia had resolved. 3. Continue antibiotic therapy for pneumonia. 4. Continue antibiotic therapy for urinary tract infection. 5. Keep the patient off DANIEL inhibitors and Aldactone. 6. Possible pyelonephritis is noted on her abdominal CT scan with a urinary tract infection; again continue antibiotic therapy. 7. Continue close followup with GI, Cardiology, Infectious Disease and Pulmonary. Greater than 35 minutes was spent in the care of this patient. Stalin Ibanez MD [facility] # [id number]
--- NOTE | 2018-10-25 21:25 | PN ---
DATE: 10/25/2018 SUBJECTIVE: The patient is in bed, in no acute distress, nontoxic. Early this morning, the patient was intubated on a ventilator, appears to be comfortable. No fevers. PHYSICAL EXAMINATION: VITAL SIGNS: Temperature is 98, blood pressure 150/60, respiratory rate on the vent, and heart rate of 60. HEENT: ET tube in place. NECK: Supple. LUNGS: Have decreased breath sounds. HEART: Normal S1, S2. ABDOMEN: Soft, nontender. LABORATORY DATA: Laboratory examination reveals a white count of 5.9, hemoglobin of 9. Chemistries are noted. BUN of 73, creatinine of 2.1, glucose is 306. The patient's procalcitonin is 2.95 with a creatinine of 2.1 is noted. Urinalysis is reviewed. Stool occult blood is positive. Immunology is noted. Serology is noted. Microbiology reveals the urine cultures are negative. The blood cultures of 48 hours are negative. Review of orders reveals the patient to be on meropenem, intermittent vancomycin. The patient had a chest x-ray today which showed no active disease. The patient had a CAT scan of the abdomen and pelvis yesterday which was perinephric changes are identified, possible pyelonephritis, nephritis, left colonic diverticulosis but no diverticulitis. The patient also had a CAT scan of the head, no acute findings. Dr. Schultz's note from today is reviewed, and Dr. Zafar's progress note is also reviewed and says that the patient was admitted to the ICU because of hypertensive emergency complicated by ventilator dependent, hypercapnic respiratory failure. Dr. Chiang's note is reviewed. Dr. Chiang says the patient has right lower lobe pneumonia. ASSESSMENT AND PLAN: A 73-year-old female with obesity with a BMI of 37 who was admitted to the intensive care unit because of hypertensive emergency, was being treated in the floor, with Pseudomonas urinary tract infection, now with Pseudomonas pyelonephritis in a patient with respiratory failure, intubated on a ventilator; acute diastolic congestive heart failure, end-stage chronic obstructive lung disease, coronary artery disease, hypertension, diabetes, hyperparathyroidism, panic disorder, moderate pulmonary hypertension, mitral regurgitation, tricuspid regurgitation, was initially admitted with severe sepsis, community-acquired pneumonia, acute kidney injury, diastolic congestive heart failure on top of chronic congestive heart failure acutely, with coag-negative staph, with Pseudomonas pyelonephritis, now on day #8 of meropenem, Pseudomonas therapy. We will check on the repeat pancultures. The patient is on intermittent vancomycin for possible healthcare-associated pneumonia with an elevated procalcitonin. We will continue present regimen. Juan Miguel Malone MD
[2018-10-26 05:44] LABS: ALB/GLOB RATIO 1.1 (1.1-1.8)
[2018-10-26 05:48] LABS: BASO # 0.01 K/mm3 (0.0-2.0); BASO % 0.1 % (0.0-3.0); HEMOGLOBIN 10.1 g/dL (12.0-16.0); LYMPH # 0.8 (1.2-3.4); LYMPH % 7.5 % (22.0-35.0); MEAN CELL VOLUME 90.5 fl (80.0-105.0); MEAN CORPUSCULAR HEMOGLOBIN 27.3 pg (25.0-35.0); MEAN CORPUSCULAR HGB CONC 30.1 g/dl (31.0-37.0); MONO # 0.4 (0.1-0.6); MONO % 3.6 % (1.0-6.0); PLATELET COUNT 207 10^3/uL (120.0-450.0); RED CELL DISTRIBUTION WIDTH 17.1 % (11.5-14.5); WHITE BLOOD COUNT 10.2 10^3/uL (4.5-11.0)
[2018-10-26 06:19] LABS: ARTERIAL BLOOD GAS HCO3 27.8 mmol/L (21-28); ARTERIAL BLOOD GAS HEMOGLOBIN 10.1 g/dL (11.7-17.4); ARTERIAL BLOOD GAS O2 CONTENT 13.9 ML/dl (15-23); ARTERIAL BLOOD GAS O2 SAT 99.4 % (95-98); ARTERIAL BLOOD GAS PCO2 46 mm/Hg (35-45); ARTERIAL BLOOD GAS PH 7.39 (7.35-7.45); ARTERIAL BLOOD GAS TCO2 29.2 mmol.L (22-28)
[2018-10-26] MEDS: Budesonide 0.5 mg/2 ml Inhal Susp UD IH SCH ×2 (07:46→20:02)
[2018-10-26] MEDS: Levalbuterol 1.25 MG/3 ML Inhal Soln UD IH SCH ×4 (07:47→20:03)
[2018-10-26] MEDS: Insulin Reg-HIGH-Coverage SC SCH ×4 (08:14→21:42)
--- NOTE | 2018-10-26 08:43 | PN ---
DATE: 10/26/2018 SUBJECTIVE: The patient is in bed, in no acute distress, remains intubated on a ventilator. PHYSICAL EXAMINATION: VITAL SIGNS: Temperature is 98, blood pressure is 160/60, heart rate is 120, respiratory rate on the vent. HEENT: ET tube in place. NECK: Supple. LUNGS: Have decreased breath sounds. HEART: Normal S1, S2. ABDOMEN: Soft, nontender. LABORATORY DATA: The patient's white count is 10,000, hemoglobin of 10, platelets of 207. Creatinine is 2.8. Urinalysis is noted and the blood cultures are negative and urine culture at this point is negative. ASSESSMENT AND PLAN: This is a 73-year-old female with obesity, body mass index of 37, admitted to the intensive care unit with hypertensive emergency. The patient was being treated on the regular medical floor for Pseudomonas urinary tract infection, on cefepime, now had a new CAT scan consistent with Pseudomonas pyelonephritis in a patient with respiratory failure, intubated on a ventilator with acute diastolic congestive heart failure, end-stage chronic obstructive lung disease, coronary artery disease, hypertension, diabetes, hyperparathyroidism, panic disorder and moderate pulmonary hypertension, mitral regurgitation with tricuspid regurgitation, admitted with severe sepsis and community-acquired pneumonia, acute kidney injury with diastolic congestive heart failure, on day #3 of meropenem and intermittent vancomycin for possible healthcare-associated pneumonia and with elevated procalcitonin and day #9 of treatment, however, day #3 of meropenem therapy, initially had cefepime with adequate Pseudomonas coverage, we would complete 4 to 7 days of meropenem and follow the procalcitonin. Juan Miguel Malone MD
[2018-10-26] MEDS: diltiaZEM IVPB 100mg in NS 100 ML IV PRN ×2 (08:57→17:09)
--- NOTE | 2018-10-26 09:02 | RAD ---
Date of service: 10/26/2018 HISTORY: intubated COMPARISON: Portable chest 10/25/2018. FINDINGS: LUNGS: Endotracheal and nasogastric tubes do not appear significantly changed in position. Pacemaker reiterated. No interval airspace disease identified bilaterally. PLEURA: No significant pleural effusion identified, no pneumothorax apparent. CARDIOVASCULAR: Calcific atherosclerotic changes are seen related to the thoracic aorta. Cardiac silhouette appears stable. No pulmonary vascular congestion. OSSEOUS STRUCTURES: No significant abnormalities. VISUALIZED UPPER ABDOMEN: Normal. OTHER FINDINGS: None. IMPRESSION: No interval acute cardiopulmonary disease appreciable.
[2018-10-26] MEDS: POLYETHYLENE GLYCOL 3350 17 GM/Dose PACKET PO SCH ×2 (09:16→17:36)
[2018-10-26] MEDS: Sildenafil 20 MG TAB PO SCH ×2 (09:17→17:18)
[2018-10-26] MEDS: MethylPREDNISolone 40 mg Vial IVP SCH ×2 (09:18→21:42)
[2018-10-26] MEDS: Vitamins A & D Oint UD Foilpak TOP SCH ×2 (09:45→17:37)
--- NOTE | 2018-10-26 13:14 | PN ---
DATE: 10/26/2018 SUBJECTIVE: The patient is awake on the vent with the family at bedside. Doing very well and improving very comfortable, on ventilator, FiO2 is 30%. The patient does have some mild tachycardia. PHYSICAL EXAMINATION: VITAL SIGNS: Notes that her temperature is 99.4, her pulse is 127, respirations are 18, and BP is 155/72. SKIN: Warm and dry. HEENT: Head, atraumatic, normocephalic. Eyes, reactive to light. Ear, nose and throat seemed to be within normal limits. NECK: Supple. No JVD. No thyroid enlargement or lymph nodes. HEART: Has regular rate and rhythm. Normal S1, S2, but tachycardic. LUNGS: Revealed bilateral rhonchi. ABDOMEN: Soft. Decreased bowel sounds. GENITALIA AND RECTAL: Deferred. MUSCULOSKELETAL: No joint deformities. EXTREMITIES: Revealed positive lower extremity edema. NEUROLOGICAL: The patient is awake on the ventilator. Moving all extremities. LABORATORY DATA: Her white count is 10.2, hemoglobin is 10.1, hematocrit 33.5 with platelets of 207,000. Arterial blood gas reveals a pH of 7.50, pCO2 of 33, pO2 of 191. Sodium is 151, potassium 3.9, chloride 112, CO2 of 29 with BUN of 89, creatinine of 2.8 and a glucose of 330. Chest x-ray reveals a left lower lobe infiltrative process. This is unofficial reading. IMPRESSION: This patient has respiratory failure secondary to pneumonia and a history of chronic obstructive pulmonary disease. He is tachycardic and has hypertension, pulmonary hypertension, coronary artery disease, anemia, acute on chronic renal failure. PLAN: We will continue ventilator support and titrate and off as tolerated. We will possibly try to extubate the patient today. The patient is getting hydralazine, DuoNebs, Eliquis, insulin coverage, Lasix, Lipitor, Lopressor, meropenem, nicardipine Norvasc, propofol, Protonix, Pulmicort, Revatio, Singulair, Xopenex and Zofran p.r.n. We will continue to treat aggressively along with the other consultants and the primary care doctor. Jose D Flowers MD
--- NOTE | 2018-10-26 16:13 | PN ---
DATE: 10/26/2018 LOCATION: The patient is in the CCU 129, Bed 1. REASON FOR CONSULTATION AND FOLLOWUP: Coronary artery disease, CABG, history of PTCA, admitted with shortness of breath, status post pacemaker insertion, atrial fibrillation, worsening renal insufficiency, respiratory failure; the patient is on a respirator. SUBJECTIVE: The patient is currently on a respirator. Family is at the bedside, case discussed with them. PHYSICAL EXAMINATION: GENERAL: The patient is on a respirator. VITAL SIGNS: Blood pressure 163/74, the patient is on a respirator 26 per minute, heart rate 124, temperature 99.4. HEENT: Head is normocephalic. Eyes: Pupils normal. Conjunctivae slightly pale. NECK: JVP low, carotids equal. THORAX: AP diameter normal. LUNGS: No rales. CARDIOVASCULAR: S1 and S2. ABDOMEN: Soft, nontender. No organomegaly. EXTREMITIES: No clubbing, no cyanosis. LABORATORY DATA: WBC is 10.2, hemoglobin 10.1, hematocrit 33.5, platelets 207. Sodium 151, potassium 3.9, BUN 89, creatinine 2.8. Random sugar 303. Magnesium of 2.6, calcium and phosphorus normal. AST and ALT normal. Total protein and bilirubin normal. Chest x-ray repeated today shows clear lungs. DIAGNOSIS: Respiratory failure, on respirator; coronary artery disease; history of coronary artery bypass graft, history of angioplasty in the past, pulmonary hypertension, coronary artery bypass surgery 2013, angioplasty 2014, status post pacemaker insertion, renal insufficiency, atrial fibrillation, pneumonia, hypernatremia, probably related to dehydration. PLAN: We will stop Lasix and will start D5W. As serum sodium is high, hemoconcentration due to dehydration. was elevated, so we will give cautiously IV fluid. We will repeat labs in the morning. The patient is on hydralazine 50 mg b.i.d., Cardizem drip 5 mg per hour, Eliquis 2.5 b.i.d., atorvastatin 40 daily, metoprolol 50 b.i.d., Lyrica 75 b.i.d. The patient is on meropenem 250 mg IV every 12 hours, nicardipine 5 mg per hour drip, amlodipine 10 mg daily, Protonix 40 IV daily, Revatio 20 mg p.o. b.i.d., Singulair 10 mg h.s., methylprednisolone 40 mg IV every 12 hours, Xopenex hand nebulizer therapy. Repeat labs in the morning. We will follow with you. Sapna Saini MD
--- NOTE | 2018-10-26 17:22 | PN ---
DATE: 10/26/2018 SUBJECTIVE: The patient is 73 years old, seen and examined, lying in bed, seems to be comfortable, still on respirator. She seemed to be more alert, answers by nodding head, communicative, ____ however, she seems to be in rapid atrial fibrillation. PHYSICAL EXAMINATION: VITAL SIGNS: She is afebrile, pulse 124, respirations 20, blood pressure 163/74. LUNGS: Bilateral fair airflow. No rhonchi or crackle. HEART: S1 and S2 audible. ABDOMEN: Soft, and nontender. No rebound. No guarding. NEUROLOGIC: The patient is awake and alert. EXTREMITIES: Bilateral legs, no edema. LABORATORY DATA: WBC 10.2, hemoglobin 10, hematocrit 33.5, and platelet 207. Chemistry; sodium 151, potassium 3.9, chloride 112, CO2 of 29, BUN 89, creatinine 2.8, and blood sugar of 303. ASSESSMENT: 1. Respiratory failure. 2. Chronic obstructive pulmonary disease excerebration. 3. Congestive heart failure. 4. Pseudomonas aeruginosa urinary tract infection. 5. Pulmonary hypertension. 6. Non insulin dependent diabetes. PLAN: We will start the patient on tube feeding. We will start her on Glucerna 30 mL with water flushes and we will monitor her hemoglobin and hematocrit. We will continue vent support. Once her heart rate is under better control, plan will be made for extubation. Laurel Schultz MD
--- NOTE | 2018-10-26 17:44 | CP.PCM.PN ---
Subjective - Date & Time of Evaluation Date of Evaluation: 10/26/18 Time of Evaluation: 14:00 - Subjective Subjective: Providing nephrology coverage for Dr. Ibanez: 73 F HTN, CAD s/p CABG(06/14/14), paroxysmal Afib s/p PM placement on home eliquis, mild-mod pulm HTN (RVSP 55mmHg), COPD on home O2, HFpEF, CKD, NIDDM admitted to ICU for hypertensive emergency complicated by ventilator dependent hypercapnic respiratory failure, nephrology following for acute renal failure; Patient extubated today; is alert but not able to verbalize currently; Objective - Vital Signs/Intake and Output Vital Signs (last 24 hours): Temp Pulse Resp BP Pulse Ox 99.4 F 75 26 H 148/51 L 87 L 10/26/18 06:00 10/26/18 17:18 10/26/18 11:20 10/26/18 17:18 10/26/18 11:20 Intake and Output: 10/26/18 10/26/18 06:59 18:59 Intake Total 50 100 Output Total 800 Balance -750 100 - Medications Medications: Current Medications Acetaminophen (Tylenol 325mg Tab) 650 mg PO Q6H PRN PRN Reason: Fever >100.4 F Last Admin: 10/21/18 16:47 Dose: 650 mg Albuterol/Ipratropium (Duoneb 3 Mg/0.5 Mg (3 Ml) Ud) 3 ml IH Q2H PRN PRN Reason: Shortness of Breath Last Admin: 10/19/18 10:38 Dose: 3 ml Amlodipine Besylate (Norvasc) 10 mg PO DAILY [facility] Last Admin: 10/26/18 09:17 Dose: 10 mg Apixaban (Eliquis) 2.5 mg PO BID [facility]; Protocol Last Admin: 10/26/18 17:18 Dose: 2.5 mg Atorvastatin Calcium (Lipitor) 40 mg PO DAILY [facility] Last Admin: 10/26/18 09:16 Dose: 40 mg Budesonide (Pulmicort Respules) 0.5 mg IH [id number] [facility] Last Admin: 10/26/18 07:46 Dose: 0.5 mg Folic Acid (Folic Acid) 1 mg PO DAILY [facility] Last Admin: 10/26/18 09:16 Dose: 1 mg Hydralazine HCl (Apresoline) 50 mg PO BID [facility] Last Admin: 10/26/18 17:18 Dose: 50 mg Hydralazine HCl (Apresoline) 10 mg IVP Q4 PRN PRN Reason: SBP > 180 Last Admin: 10/26/18 05:13 Dose: 10 mg Nicardipine HCl (Cardene Iv Premix) 20 mg in 200 mls @ 50 mls/hr IV .Q4H PRN; Protocol PRN Reason: TITRATE PER MD ORDER Last Titration: 10/24/18 07:15 Dose: 0 mg/hr, 0 mls/hr Propofol (Diprivan) 1,000 mg in 100 mls @ 2.879 mls/hr IV .Q24H PRN; Protocol PRN Reason: TITRATE PER MD ORDER Last Titration: 10/25/18 06:53 Dose: 0 mcg/kg/min, 0 mls/hr Midazolam 100 mg/100ml in NS (Midazolam 100 Mg/100ml In Ns) 100 mg in 100 mls @ 1 mls/hr IV .Q24H PRN; Protocol PRN Reason: Sedation Last Titration: 10/25/18 06:53 Dose: 0 mg/hr, 0 mls/hr Meropenem 250 mg/ Sodium (Chloride) 100 mls @ 100 mls/hr IVPB Q12H [facility]; Protocol Stop: 10/31/18 10:16 Last Admin: 10/26/18 09:16 Dose: 100 mls/hr diltiaZEM IVPB 100mg in NS (Cardizem 100mg In Ns) 100 mls @ 5 mls/hr IV .Q20H PRN; Protocol PRN Reason: TITRATE PER MD ORDER Last Admin: 10/26/18 17:09 Dose: 15 mg/hr, 15 mls/hr Dextrose (Dextrose 5% In Water 1000 Ml) 1,000 mls @ 70 mls/hr IV .[id number] [facility] Last Admin: 10/26/18 12:15 Dose: 70 mls/hr Insulin Human Regular (Humulin R High) 0 units SC ACHS [facility]; Protocol Last Admin: 10/26/18 17:17 Dose: 10 units Levalbuterol HCl (Xopenex) 1.25 mg IH [id number] [facility] Last Admin: 10/26/18 13:42 Dose: 1.25 mg Methylprednisolone (Solu-Medrol) 40 mg IVP Q12 [facility] Last Admin: 10/26/18 09:18 Dose: 40 mg Metoprolol Tartrate (Lopressor) 50 mg PO BID [facility] Last Admin: 10/26/18 17:18 Dose: 50 mg Montelukast Sodium (Singulair) 10 mg PO HS [facility] Last Admin: 10/25/18 22:16 Dose: 10 mg Ondansetron HCl (Zofran Inj) 4 mg IVP Q6H PRN PRN Reason: Nausea/Vomiting Last Admin: 10/19/18 07:55 Dose: 4 mg Pantoprazole Sodium (Protonix Inj) 40 mg IVP DAILY [facility] Last Admin: 10/26/18 09:18 Dose: 40 mg Polyethylene Glycol (Miralax) 17 gm PO BID [facility] Last Admin: 10/26/18 17:36 Dose: Not Given Pregabalin (Lyrica) 75 mg PO BID [facility] Last Admin: 10/24/18 09:45 Dose: 75 mg Sildenafil Citrate (Revatio) 20 mg PO BID [facility] Last Admin: 10/26/18 17:18 Dose: 20 mg Verapamil HCl (Verapamil Inj) 2.5 mg IVP Q6H PRN PRN Reason: for Heart rate >120 Last Admin: 10/26/18 02:12 Dose: 2.5 mg Vitamin A (Vitamin A & D Oint Ud Foilpak) 1 ea TOP BID [facility] Last Admin: 10/26/18 17:37 Dose: 1 ea - Labs Labs: 10/26/18 05:00 10/26/18 05:00 PT 14.8 SECONDS (9.4-12.5) H 10/23/18 14:00 INR 1.33 10/23/18 14:00 APTT 26.6 Seconds (26.9-38.3) L 10/23/18 14:00 - Constitutional Appears: Non-toxic, No Acute Distress - Eye Exam Eye Exam: Normal appearance - Respiratory Exam Respiratory Exam: Clear to Ausculation Bilateral. absent: Respiratory Distress - Cardiovascular Exam Cardiovascular Exam: RRR, +S1, +S2 - GI/Abdominal Exam GI & Abdominal Exam: Soft. absent: Distended - Neurological Exam Neurological Exam: Alert, Awake - Psychiatric Exam Psychiatric exam: absent: Agitated - Skin Skin Exam: Warm. absent: Cyanosis Assessment and Plan (1) Acute renal failure Assessment & Plan: Worsening renal function after initially improving; does have underlying CKD with dense atherosclerotic disease and calcifications involving bilateral renal arteries on CT and is prone to hemodynamic fluctuations of renal function; has had some sudden BP drops noted; no overt nephrotoxic meds identified; has been on IV lasix 40 mg daily; possible pyelonephritis but repeat urine culture negative and patient on appropriate antibiotic coverage; otherwise stable electrolyte and volume status; no indication for initiating dialysis at this time; -avoid nephrotoxic agents; -avoid dropping BP further; Status: Acute (2) Hypertensive urgency Status: Acute (3) CHF (congestive heart failure) Status: Acute
[2018-10-27] MEDS: Levalbuterol 1.25 MG/3 ML Inhal Soln UD IH SCH ×4 (01:41→20:42)
[2018-10-27] MEDS: diltiaZEM IVPB 100mg in NS 100 ML IV PRN ×2 (04:30→15:32)
[2018-10-27 05:36] LABS: ARTERIAL BLOOD GAS HCO3 30.5 mmol/L (21-28); ARTERIAL BLOOD GAS HEMOGLOBIN 9.6 g/dL (11.7-17.4); ARTERIAL BLOOD GAS O2 CAPACITY 13.3 mL/dl (16-24); ARTERIAL BLOOD GAS O2 CONTENT 13.2 ML/dl (15-23); ARTERIAL BLOOD GAS O2 SAT 99.6 % (95-98); ARTERIAL BLOOD GAS PCO2 65 mm/Hg (35-45); ARTERIAL BLOOD GAS PH 7.28 (7.35-7.45); ARTERIAL BLOOD GAS TCO2 32.5 mmol.L (22-28)
[2018-10-27 06:24] LABS: HEMOGLOBIN 9.3 g/dL (12.0-16.0); LYMPH # 0.9 (1.2-3.4); LYMPH % 7.5 % (22.0-35.0); MEAN CELL VOLUME 92.8 fl (80.0-105.0); MEAN CORPUSCULAR HEMOGLOBIN 26.7 pg (25.0-35.0); MEAN CORPUSCULAR HGB CONC 28.8 g/dl (31.0-37.0); MONO # 0.2 (0.1-0.6); MONO % 1.8 % (1.0-6.0); PLATELET COUNT 201 10^3/uL (120.0-450.0); RBC 3.48 10^6/uL (3.5-6.1); RED CELL DISTRIBUTION WIDTH 17.4 % (11.5-14.5); WHITE BLOOD COUNT 11.4 10^3/uL (4.5-11.0)
[2018-10-27 06:51] LABS: ALB/GLOB RATIO 1.1 (1.1-1.8); ALBUMIN 4.1 g/dL (3.0-4.8); CALCIUM 9.6 mg/dL (8.4-10.5)
[2018-10-27] MEDS: Budesonide 0.5 mg/2 ml Inhal Susp UD IH SCH ×2 (07:33→20:46)
--- NOTE | 2018-10-27 08:34 | RAD ---
Date of service: 10/27/2018 HISTORY: intubated COMPARISON: Portable chest 11/05/2018 5:15 a.m.. FINDINGS: LUNGS: Endotracheal and nasogastric tubes have been removed in the interval. Pacemaker reiterated. No airspace disease appreciable bilaterally. PLEURA: No significant pleural effusion identified, no pneumothorax apparent. CARDIOVASCULAR: Calcific atherosclerotic changes are seen related to the thoracic aorta. Normal cardiac size. No pulmonary vascular congestion. OSSEOUS STRUCTURES: No significant abnormalities. VISUALIZED UPPER ABDOMEN: Normal. OTHER FINDINGS: None. IMPRESSION: Status post extubation and nasogastric tube removal. No acute airspace disease appreciated bilaterally. No pleural effusion or pneumothorax bilaterally.
[2018-10-27 08:56] LABS: LYMPHOCYTE 6 % (22.0-35.0); NEUTROPHIL 92 % (50.0-70.0)
[2018-10-27 08:57] LABS: ANISOCYTOSIS 1+; HYPOCHROMIA 1+; MONOCYTE 2 % (1.0-6.0); PLATELET ESTIMATE NORMAL (NORMAL); POLYCHROMASIA SLIGHT
[2018-10-27] MEDS: Insulin Reg-HIGH-Coverage SC SCH ×4 (09:16→22:10)
[2018-10-27] MEDS: Sildenafil 20 MG TAB PO SCH ×2 (09:17→17:40)
[2018-10-27] MEDS: POLYETHYLENE GLYCOL 3350 17 GM/Dose PACKET PO SCH ×2 (09:18→17:40)
[2018-10-27] MEDS: MethylPREDNISolone 40 mg Vial IVP SCH ×2 (09:22→21:21)
--- NOTE | 2018-10-27 09:36 | PN ---
DATE: 10/27/2018 SUBJECTIVE: The patient is awake and alert, on BIPAP and family is at bedside. The patient continues to be anxious about her respiratory status, but is stable. No complaints of increased cough or congestion and her tachycardia has been resolved. PHYSICAL EXAMINATION: VITAL SIGNS: The patient's temperature is 99.1, pulse is 70, respirations are 21 and BP is 146/52. SKIN: Warm and dry. HEENT: Head atraumatic, normocephalic. Eyes reactive to light. Ears, nose and throat seemed to be within normal limits. NECK: Supple. No JVD. No thyroid enlargement or lymph nodes. HEART: Has regular rate and rhythm. Normal S1, S2. LUNGS: Reveal decreased breath sounds at the bases. ABDOMEN: Soft, obese. Decreased bowel sounds. GENITALIA AND RECTAL: Deferred. MUSCULOSKELETAL: No joint deformities. EXTREMITIES: Reveal positive edema. NEUROLOGICALLY: She seemed to be grossly intact. LABORATORY DATA: As far as her laboratories are concerned, her white count is 14.4, hemoglobin is 9.3, hematocrit 23.3 with platelets of 201,000. Arterial blood gas reveals a pH of 7.28, pCO2 of 65, pO2 of 109. The patient's sodium is 149, potassium 4.8, chloride 111, CO2 of 28 with a BUN of 100, creatinine of 3.3 and a glucose of 398. The patient's chest x-ray reveals that there is left lower lobe pneumonia with some associated pleural effusion. This is unofficial reading. IMPRESSION: The patient has respiratory failure with hypercapnia and respiratory acidosis secondary to pneumonia and a left lower lobe as well as associated pleural effusion. The patient has a history of chronic obstructive pulmonary disease, pulmonary hypertension, coronary artery disease, anemia and chronic renal failure. PLAN: We will continue with BIPAP, continue with O2 support and aggressive pulmonary toilet. The patient is on Cardizem for cardiac rate and hydralazine, DuoNeb, Eliquis, insulin, Lasix, Lipitor, Lopressor, meropenem,nicardipine Norvasc, propofol has been discontinued, Protonix, Pulmicort, Revatio, Singulair, Xopenex and Zofran p.r.n. We will continue to treat aggressively along with the other consultants and the primary care doctor. Jose D Flowers MD
--- NOTE | 2018-10-27 09:57 | PN ---
DATE: 10/27/2018 SUBJECTIVE: The patient is in bed now extubated, comfortable and responsive. Had an uneventful night. No fevers. OBJECTIVE: VITAL SIGNS: On exam, temperature is 99, blood pressure is 140/50, respiratory rate of 19, heart rate of 67. HEENT: Unremarkable. NECK: Supple. LUNGS: Have decreased breath sounds. HEART: Normal S1, S2. ABDOMEN: Soft, nontender. LABORATORY EXAMINATION: Reveals a white count of 11,400, hemoglobin of 9. Chemistries reveals a BUN of 100, creatinine of 3.2. Urinalysis is noted. Microbiology reveals the repeat blood cultures are negative. Nasal MRSA is negative. Urine cultures are negative. Sputum cultures are pending. This morning's chest x-ray results are pending. Yesterday's chest x-ray results reveal no interval airspace disease identified bilaterally. The patient is on meropenem. ASSESSMENT AND PLAN: This is a 73-year-old female with obesity, BMI of 37, admitted to intensive care unit with hypertensive emergency, required intubation, was being treated for Pseudomonas urinary tract infection and had a CT scan which was consistent with a Pseudomonas pyelonephritis, had been on Maxipime. Since admission for the Pseudomonas in the urine, would complete 10-14 days of therapy. Today is day #4 of meropenem for healthcare-associated severe sepsis, community-acquired pneumonia and acute kidney injury and diastolic congestive heart failure. It is day #4 of meropenem, and day #10 therapy would complete 10-14 days, 4 more days of meropenem would be adequate. Juan Miguel Malone MD
[2018-10-27] MEDS: Vitamins A & D Oint UD Foilpak TOP SCH ×2 (11:09→17:40)
[2018-10-27 11:58] LABS: ARTERIAL BLOOD GAS HCO3 29.6 mmol/L (21-28); ARTERIAL BLOOD GAS HEMOGLOBIN 9.5 g/dL (11.7-17.4); ARTERIAL BLOOD GAS O2 CONTENT 12.9 ML/dl (15-23); ARTERIAL BLOOD GAS O2 SAT 99.1 % (95-98); ARTERIAL BLOOD GAS PCO2 66 mm/Hg (35-45); ARTERIAL BLOOD GAS PH 7.26 (7.35-7.45); ARTERIAL BLOOD GAS TCO2 31.6 mmol.L (22-28)
--- NOTE | 2018-10-27 13:39 | PN ---
DATE: 10/27/2018 LOCATION: The patient is in room 129, bed 1. REASON FOR CONSULTATION AND FOLLOWUP: Coronary artery disease, COPD, history of PTCA, admitted with shortness of breath, status post pacemaker insertion, atrial fibrillation, worsening renal insufficiency, respiratory failure, and hypernatremia. SUBJECTIVE: The patient was successfully extubated yesterday. The patient at present denies any chest pain; breathing is stable; and denies palpitation. PHYSICAL EXAMINATION: VITAL SIGNS: Blood pressure 146/52, respiration 21, pulse 70, and the patient is afebrile. HEENT: Head is normocephalic. Eyes; pupils normal. Conjunctivae slightly pale. NECK: JVP low; carotids equal. THORAX: AP diameter normal. LUNGS: No significant rales. CARDIOVASCULAR: S1 and S2. ABDOMEN: Soft. Bowel sounds normal. EXTREMITIES: No clubbing. No cyanosis. LABORATORY DATA: WBC 11.4, hemoglobin 9.3, hematocrit 32.3, and platelet 201. Sodium 149, potassium 4.8, BUN 100, and creatinine 3.2. Sugar 398, phosphorus 5.6, and magnesium 2.7. AST and ALT normal. Total protein and bilirubin normal. Chest x-ray repeated today; chest x-ray is clear. DIAGNOSES: Respiratory failure, status post successful extubation; coronary artery disease; history of coronary artery bypass graft surgery, done in 2013; history of angioplasty in the past, done in 2014, status post pacemaker insertion; pulmonary hypertension; renal insufficiency; atrial fibrillation; pneumonia and hypernatremia. PLAN: Hypernatremia is related to hemoconcentration, dehydration. So I started D5W last night and yesterday sodium was 151, today is 149, so it is improving. We will continue D5W. The patient is not able to swallow at this moment. The patient is on hydralazine 50 b.i.d. and diltiazem 500 mg IV drip, 5% dextrose water has been cut down to 50 mL an hour; I started yesterday 70 mL an hour, DuoNeb hand nebulizer therapy, Eliquis 2.5 b.i.d. I discontinued the Lasix yesterday, but the patient has again received the Lasix 40 today, atorvastatin 40 daily, metoprolol 50 b.i.d., Lyrica 75 mg b.i.d., meropenem 250 mg IV every 12 hours, nicardipine 20 mg and 200 mL IV fluid 5 mg per hour, amlodipine 10 mg daily, Protonix 40 IV daily, Revatio 20 mg p.o. b.i.d., Singulair 10 mg at bedtime, methylprednisolone 40 mg every 12 hours, midazolam 100 mg in 100 mL of IV fluid 1 mg per hour, Xopenex hand nebulizer therapy. We will repeat SMA-7 in the morning to followup on the sodium, BUN and creatinine; and we will follow with you. Sapna Saini MD
--- NOTE | 2018-10-27 15:59 | CP.PCM.PN ---
Subjective - Date & Time of Evaluation Date of Evaluation: 10/27/18 Time of Evaluation: 15:54 - Subjective Subjective: Providing nephrology coverage for Dr. Ibanez: 73 F HTN, CAD s/p CABG(06/14/14), paroxysmal Afib s/p PM placement on home eliquis, mild-mod pulm HTN (RVSP 55mmHg), COPD on home O2, HFpEF, CKD, NIDDM admitted to ICU for hypertensive emergency complicated by ventilator dependent hypercapnic respiratory failure, nephrology following for acute renal failure; Patient with hypercapnea, on BIPAP earlier today; failed swallow eval, unable to take PO meds; otherwise is slow to respond but verbalizing better than yesterday; Objective - Vital Signs/Intake and Output Vital Signs (last 24 hours): Temp Pulse Resp BP Pulse Ox 99.1 F 67 17 161/59 H 93 L 10/26/18 16:00 10/27/18 12:23 10/27/18 10:30 10/27/18 10:30 10/27/18 10:30 Intake and Output: 10/27/18 10/27/18 06:59 18:59 Intake Total 100 Output Total Balance 100 - Medications Medications: Current Medications Acetaminophen (Tylenol 325mg Tab) 650 mg PO Q6H PRN PRN Reason: Fever >100.4 F Last Admin: 10/21/18 16:47 Dose: 650 mg Albuterol/Ipratropium (Duoneb 3 Mg/0.5 Mg (3 Ml) Ud) 3 ml IH Q2H PRN PRN Reason: Shortness of Breath Last Admin: 10/19/18 10:38 Dose: 3 ml Amlodipine Besylate (Norvasc) 10 mg PO DAILY [facility] Last Admin: 10/27/18 09:17 Dose: Not Given Apixaban (Eliquis) 2.5 mg PO BID [facility]; Protocol Last Admin: 10/27/18 09:18 Dose: Not Given Atorvastatin Calcium (Lipitor) 40 mg PO DAILY [facility] Last Admin: 10/27/18 09:22 Dose: Not Given Budesonide (Pulmicort Respules) 0.5 mg IH [id number] [facility] Last Admin: 10/27/18 07:33 Dose: 0.5 mg Folic Acid (Folic Acid) 1 mg PO DAILY [facility] Last Admin: 03/10/19 09:18 Dose: Not Given Hydralazine HCl (Apresoline) 50 mg PO BID [facility] Last Admin: 10/27/18 09:19 Dose: Not Given Hydralazine HCl (Apresoline) 10 mg IVP Q4 PRN PRN Reason: SBP > 180 Last Admin: 10/26/18 05:13 Dose: 10 mg Nicardipine HCl (Cardene Iv Premix) 20 mg in 200 mls @ 50 mls/hr IV .Q4H PRN; Protocol PRN Reason: TITRATE PER MD ORDER Last Titration: 10/24/18 07:15 Dose: 0 mg/hr, 0 mls/hr Propofol (Diprivan) 1,000 mg in 100 mls @ 2.879 mls/hr IV .Q24H PRN; Protocol PRN Reason: TITRATE PER MD ORDER Last Titration: 10/25/18 06:53 Dose: 0 mcg/kg/min, 0 mls/hr Midazolam 100 mg/100ml in NS (Midazolam 100 Mg/100ml In Ns) 100 mg in 100 mls @ 1 mls/hr IV .Q24H PRN; Protocol PRN Reason: Sedation Last Titration: 10/25/18 06:53 Dose: 0 mg/hr, 0 mls/hr Meropenem 250 mg/ Sodium (Chloride) 100 mls @ 100 mls/hr IVPB Q12H [facility]; Protocol Stop: 10/31/18 10:16 Last Admin: 10/27/18 09:17 Dose: 100 mls/hr diltiaZEM IVPB 100mg in NS (Cardizem 100mg In Ns) 100 mls @ 5 mls/hr IV .Q20H PRN; Protocol PRN Reason: TITRATE PER MD ORDER Last Admin: 10/27/18 15:32 Dose: 10 mg/hr, 10 mls/hr Dextrose (Dextrose 5% In Water 1000 Ml) 1,000 mls @ 50 mls/hr IV .Q20H [facility] Last Admin: 10/27/18 09:18 Dose: 50 mls/hr Insulin Human Regular (Humulin R High) 0 units SC ACHS [facility]; Protocol Last Admin: 10/27/18 12:29 Dose: 12 units Levalbuterol HCl (Xopenex) 1.25 mg IH [id number] [facility] Last Admin: 10/27/18 13:32 Dose: 1.25 mg Methylprednisolone (Solu-Medrol) 40 mg IVP Q12 [facility] Last Admin: 10/27/18 09:22 Dose: 40 mg Metoprolol Tartrate (Lopressor) 50 mg PO BID [facility] Last Admin: 10/27/18 09:18 Dose: Not Given Montelukast Sodium (Singulair) 10 mg PO HS [facility] Last Admin: 10/26/18 21:43 Dose: Not Given Ondansetron HCl (Zofran Inj) 4 mg IVP Q6H PRN PRN Reason: Nausea/Vomiting Last Admin: 10/19/18 07:55 Dose: 4 mg Pantoprazole Sodium (Protonix Inj) 40 mg IVP DAILY [facility] Last Admin: 10/27/18 09:21 Dose: 40 mg Polyethylene Glycol (Miralax) 17 gm PO BID [facility] Last Admin: 10/27/18 09:18 Dose: Not Given Pregabalin (Lyrica) 75 mg PO BID [facility] Last Admin: 10/24/18 09:45 Dose: 75 mg Sildenafil Citrate (Revatio) 20 mg PO BID [facility] Last Admin: 10/27/18 09:17 Dose: Not Given Verapamil HCl (Verapamil Inj) 2.5 mg IVP Q6H PRN PRN Reason: for Heart rate >120 Last Admin: 10/26/18 02:12 Dose: 2.5 mg Vitamin A (Vitamin A & D Oint Ud Foilpak) 1 ea TOP BID [facility] Last Admin: 10/27/18 11:09 Dose: 1 ea - Labs Labs: 10/27/18 06:00 10/27/18 06:00 PT 14.8 SECONDS (9.4-12.5) H 10/23/18 14:00 INR 1.33 10/23/18 14:00 APTT 26.6 Seconds (26.9-38.3) L 10/23/18 14:00 - Constitutional Appears: Non-toxic, No Acute Distress - Eye Exam Eye Exam: Normal appearance - Respiratory Exam Respiratory Exam: absent: Respiratory Distress Additional comments: tachypneic, poor air movement; - Cardiovascular Exam Cardiovascular Exam: RRR, +S1, +S2 - GI/Abdominal Exam GI & Abdominal Exam: Soft. absent: Distended, Tenderness - Extremities Exam Additional comments: minimal proximal leg edema; - Neurological Exam Neurological Exam: Alert, Awake - Psychiatric Exam Psychiatric exam: Normal Mood. absent: Agitated - Skin Skin Exam: Warm. absent: Cyanosis Assessment and Plan (1) Acute renal failure Assessment & Plan: LEIGHA on CKD; worsening renal failure in the setting of dense atherosclerotic disease; non-oliguric though urine output is decreasing; stable electrolyte status; given dose of IV lasix 40 mg x 1 earlier today by CCM team due to concern for R basal haziness on CXR; otherwise, low FIO2 requirement (3L via NC); does have bloody sediment in [place] drainage; -Avoid precipitous drops in BP; -Repeating UA, urine protein/creatinine; -If significant pyuria, should consider AIN despite neg urine eos; -Modest hypernatremia, consider restarting D5W; -No indication for dialysis at this time; Status: Acute (2) Hypertensive urgency Assessment & Plan: Agree with hydralazine 10 mg IVP prn for SBP > 160; Status: Acute (3) CHF (congestive heart failure) Assessment & Plan: With evidence of diastolic dysfunction and pulm htn; stable O2 requirement; avoid over-diuresis in the setting of worsening renal failure; Status: Acute
--- NOTE | 2018-10-27 16:29 | PN ---
DATE: 10/27/2018 PULMONARY PROGRESS NOTE SUBJECTIVE: The patient is extubated, awake and alert in the Intensive Care Unit without BiPAP. She is doing well. She is comfortable. She states that she had a hard time sleeping last night, but she is markedly better. I have discussed her case with the head nurse and her private duty nurse, shoe stamper for get back to me later this morning. PHYSICAL EXAMINATION: VITAL SIGNS: Stable. The patient is afebrile, pulse 70, respiratory rate 20, and blood pressure 140/60. SKIN: Warm and dry. HEENT: Normocephalic, atraumatic. NECK: Supple. No jugular venous distention. No thyromegaly. No mass. HEART: Regular rhythm. S1, S2 without murmur, gallop or rub. LUNGS: Bilateral rales throughout. ABDOMEN: Soft. Bowel sounds normoactive. EXTREMITIES: Reveal no clubbing, cyanosis or edema. NEUROLOGIC: Exam reveals no focal findings. SKIN: Dry; intact LABORATORY DATA: Morning arterial blood gas is still pending. We will review when it is completed. IMPRESSION: 1. Status post respiratory failure with hypercapnia and respiratory acidosis. 2. Pneumonia. 3. Pleural effusion. 4. Chronic obstructive pulmonary disease. 5. Pulmonary hypertension. 6. Coronary artery disease. 7. Anemia. 8. Chronic renal failure. PLAN: Continue vigorous supportive care. Await a.m. blood gas. We will follow closely with you and decide on the need for further intervention. We will discuss with Dr. Flowers, shoe stamper. Raghu Bustillo MD [facility]
[2018-10-27] MEDS ORDERED: Insulin Regular 1 UNITS/0.01 ML ML SC ONE (17:26)
--- NOTE | 2018-10-28 00:01 | PN ---
DATE: 10/27/2018 SUBJECTIVE: The patient opens eyes. She is able to answer simple questions. She denies any chest pain. She has a BiPAP on. PHYSICAL EXAMINATION VITAL SIGNS: Temperature is 99.1, pulse of 78, blood pressure 163/61, and respirations 19. GENERAL: The patient is lying in bed, flat, comfortable. HEENT: No oral lesion. Anicteric sclerae. Moist mucosa. NECK: No JVD, adenopathy, or thyromegaly. CARDIOVASCULAR: S1 and S2, regular. No murmurs, rubs, or gallops. LUNGS: Clear to auscultation bilaterally. No wheeze, rales, or rhonchi. ABDOMEN: Bowel sounds are positive, soft, nontender and nondistended. EXTREMITIES: No cyanosis, clubbing or edema. LABORATORY DATA: White count of 11.4 and hemoglobin 9.3. Sodium 149 and creatinine is 3.2. ASSESSMENT: 1. Acute chronic obstructive pulmonary disease. 2. Urinary tract infection secondary to pseudomonas. 3. Pulmonary hypertension. 4. Diabetes type 2. 5. Coronary artery disease status post coronary artery bypass graft. 6. Paroxysmal atrial fibrillation. 7. Hypertension. 8. Anemia, chronic. 9. Hypernatremia. PLAN: The patient is currently comfortable. She is on hydralazine. She is on Cardizem drip. She is receiving D5W for her hypernatremia. The patient is on insulin for her diabetes. She is on Lipitor for dyslipidemia. She is on sildenafil for pulmonary hypertension. She is also on Solu-Medrol, which is causing her diabetes, she gets uncontrolled. We will place her on insulin sliding scale at a high dose. Bret Portillo MD
[2018-10-28] MEDS: Levalbuterol 1.25 MG/3 ML Inhal Soln UD IH SCH ×4 (01:55→19:41)
[2018-10-28] MEDS: diltiaZEM IVPB 100mg in NS 100 ML IV PRN (02:38)
[2018-10-28 05:46] LABS: ARTERIAL BLOOD GAS HCO3 30.8 mmol/L (21-28); ARTERIAL BLOOD GAS HEMOGLOBIN 9.9 g/dL (11.7-17.4); ARTERIAL BLOOD GAS O2 CAPACITY 13.6 mL/dl (16-24); ARTERIAL BLOOD GAS O2 CONTENT 13.6 ML/dl (15-23); ARTERIAL BLOOD GAS O2 SAT 99.7 % (95-98); ARTERIAL BLOOD GAS PCO2 67 mm/Hg (35-45); ARTERIAL BLOOD GAS PH 7.27 (7.35-7.45); ARTERIAL BLOOD GAS TCO2 32.9 mmol.L (22-28)
[2018-10-28 07:02] LABS: HEMOGLOBIN 9.5 g/dL (12.0-16.0); LYMPH # 0.7 (1.2-3.4); LYMPH % 5.9 % (22.0-35.0); MEAN CELL VOLUME 92.8 fl (80.0-105.0); MEAN CORPUSCULAR HEMOGLOBIN 26.3 pg (25.0-35.0); MEAN CORPUSCULAR HGB CONC 28.4 g/dl (31.0-37.0); MONO # 0.3 (0.1-0.6); MONO % 2.6 % (1.0-6.0); PLATELET COUNT 205 10^3/uL (120.0-450.0); RBC 3.61 10^6/uL (3.5-6.1); RED CELL DISTRIBUTION WIDTH 16.9 % (11.5-14.5); WHITE BLOOD COUNT 11.8 10^3/uL (4.5-11.0)
[2018-10-28 07:03] LABS: ALB/GLOB RATIO 1.1 (1.1-1.8); CALCIUM 9.5 mg/dL (8.4-10.5)
[2018-10-28] MEDS: Budesonide 0.5 mg/2 ml Inhal Susp UD IH SCH ×2 (07:29→19:41)
--- NOTE | 2018-10-28 08:23 | CP.CCUPN ---
<Bartolome James - Last Filed: 10/28/18 14:15> CCU Subjective - Physician Review Subjective (Free Text): Bartolome James DO. Critical Care Progress note Patient seen and examined at bedside. No acute events overnight. On BiPAP 06/04 16 30%, She reports no symptoms. CCU Objective - Vital Signs / Intake & Output Intake and Output (Last 8hrs): Intake & Output 10/27/18 10/28/18 10/28/18 22:59 06:59 14:59 Intake Total 600 100 Output Total 750 Balance -150 100 Intake: IV 100 TPN/PPN 600 Output: Urine 750 Urethral ([place]) 750 - Physical Exam Head: Positive for: Atraumatic, Normocephalic Pupils: Positive for: PERRL Extroacular Muscles: Positive for: EOMI Conjunctiva: Positive for: Normal Mouth: Positive for: Moist Mucous Membranes Neck: Negative for: JVD Respiratory/Chest: Positive for: Clear to Auscultation, Good Air Exchange (fair air exchange bilaterally), Other (intubated). Negative for: Wheezes, Rhonchi Cardiovascular: Positive for: Tachycardic (tachycardic but normal rhythm) Abdomen: Positive for: Hernias (reducible umbilical hernia). Negative for: Distention, Peritoneal Signs Upper Extremity: Positive for: Normal Inspection, Cyanosis Lower Extremity: Positive for: Edema (trace edema to bilateral lower extremities) Skin: Positive for: Warm, Dry, Normal Color. Negative for: Rashes - Medications Active Medications: Active Medications Generic Name Dose Route Start Last Admin Trade Name Freq PRN Reason Stop Dose Admin Acetaminophen 650 mg 10/18/18 19:35 10/21/18 16:47 Tylenol 325mg Tab PO 650 mg Q6H PRN Administration Fever >100.4 F Albuterol/Ipratropium 3 ml 10/18/18 19:35 10/19/18 10:38 Duoneb 3 Mg/0.5 Mg (3 Ml) Ud IH 3 ml Q2H PRN Administration Shortness of Breath Amlodipine Besylate 10 mg 10/23/18 12:15 10/27/18 09:17 Norvasc PO Not Given DAILY [facility] Apixaban 2.5 mg 10/18/18 19:30 10/27/18 18:02 Eliquis PO Not Given BID LINDA Protocol Atorvastatin Calcium 40 mg 10/19/18 10:00 10/27/18 09:22 Lipitor PO Not Given DAILY LINDA Budesonide 0.5 mg 10/22/18 08:00 10/28/18 07:29 Pulmicort Respules IH 0.5 mg [id number] LINDA Administration Folic Acid 1 mg 10/19/18 10:00 10/27/18 09:18 Folic Acid PO Not Given DAILY LINDA Hydralazine HCl 50 mg 10/22/18 18:00 10/27/18 17:40 Apresoline PO Not Given BID LINAD Hydralazine HCl 10 mg 10/23/18 17:33 10/28/18 03:09 Apresoline IVP 10 mg Q4 PRN Administration SBP > 180 Nicardipine HCl 20 mg in 200 mls @ 50 mls/hr 10/23/18 12:16 10/24/18 07:15 Cardene Iv Premix IV 0 mg/hr .Q4H PRN 0 mls/hr TITRATE PER MD ORDER Titration Protocol 5 MG/HR Propofol 1,000 mg in 100 mls @ 2.879 mls/hr 10/23/18 13:33 10/25/18 06:53 Diprivan IV 0 mcg/kg/min .Q24H PRN 0 mls/hr TITRATE PER MD ORDER Titration Protocol 5 MCG/KG/MIN Midazolam 100 mg/100ml in NS 100 mg in 100 mls @ 1 mls/hr 10/23/18 14:09 10/25/18 06:53 Midazolam 100 Mg/100ml In Ns IV 0 mg/hr .Q24H PRN 0 mls/hr Sedation Titration Protocol 1 MG/HR Meropenem 250 mg/ Sodium 100 mls @ 100 mls/hr 10/24/18 10:15 10/27/18 21:20 Chloride IVPB 10/31/18 10:16 100 mls/hr Q12H LINDA Administration Protocol diltiaZEM IVPB 100mg in NS 100 mls @ 5 mls/hr 10/26/18 07:55 10/28/18 02:38 Cardizem 100mg In Ns IV 10 mg/hr .Q20H PRN 10 mls/hr TITRATE PER MD ORDER Administration Protocol 5 MG/HR Dextrose 1,000 mls @ 50 mls/hr 10/27/18 08:08 10/27/18 22:30 Dextrose 5% In Water 1000 Ml IV 50 mls/hr .Q20H LINDA Administration Insulin Human Regular 0 units 10/27/18 22:00 10/27/18 22:10 Humulin R High SC 2 units ACHS LINDA Administration Protocol Levalbuterol HCl 1.25 mg 10/18/18 20:00 10/28/18 07:30 Xopenex IH 1.25 mg [id number] LINDA Administration Methylprednisolone 40 mg 10/24/18 10:00 10/27/18 21:21 Solu-Medrol IVP 40 mg Q12 LINDA Administration Metoprolol Tartrate 50 mg 10/18/18 19:30 10/27/18 17:40 Lopressor PO Not Given BID LINDA Montelukast Sodium 10 mg 10/18/18 22:00 10/27/18 21:10 Singulair PO Not Given HS LINDA Ondansetron HCl 4 mg 10/18/18 19:35 10/19/18 07:55 Zofran Inj IVP 4 mg Q6H PRN Administration Nausea/Vomiting Pantoprazole Sodium 40 mg 10/25/18 10:00 10/27/18 09:21 Protonix Inj IVP 40 mg DAILY LINDA Administration Polyethylene Glycol 17 gm 10/25/18 18:00 10/27/18 17:40 Miralax PO Not Given BID LINDA Pregabalin 75 mg 10/18/18 19:30 10/24/18 09:45 Lyrica PO 75 mg BID LINDA Administration Sildenafil Citrate 20 mg 10/19/18 10:00 10/27/18 17:40 Revatio PO Not Given BID LINDA Verapamil HCl 2.5 mg 10/24/18 12:34 10/26/18 02:12 Verapamil Inj IVP 2.5 mg Q6H PRN Administration for Heart rate >120 Vitamin A 1 ea 10/26/18 10:00 10/27/18 17:40 Vitamin A & D Oint Ud Foilpak TOP 1 ea BID LINDA Administration - Patient Studies Lab Studies: Microbiology Studies 10/23/18 14:00 Blood Culture - Preliminary Blood NO GROWTH AFTER 4 DAYS Lab Studies 10/28/18 10/28/18 10/28/18 Range/Units 07:59 06:30 06:30 WBC 11.8 H (4.5-11.0) 10^3/uL RBC 3.61 (3.5-6.1) 10^6/uL Hgb 9.5 L (12.0-16.0) g/dL Hct 33.5 L (36.0-48.0) % MCV 92.8 (80.0-105.0) fl MCH 26.3 (25.0-35.0) pg MCHC 28.4 L (31.0-37.0) g/dl RDW 16.9 H (11.5-14.5) % Plt Count 205 (120.0-450.0) 10^3/uL Neut % (Auto) 91.5 H (50.0-68.0) % Lymph % (Auto) 5.9 L (22.0-35.0) % [place] % (Auto) 2.6 (1.0-6.0) % Eos % (Auto) 0.0 L (1.5-5.0) % Baso % (Auto) 0.0 (0.0-3.0) % Lymph # (Auto) 0.7 L (1.2-3.4) [place] # (Auto) 0.3 (0.1-0.6) Eos # (Auto) 0.0 (0.0-0.7) Baso # (Auto) 0.00 (0.0-2.0) K/mm3 Absolute Neuts (auto) 10.77 H (1.4-6.5) Neutrophils % (Manual) (50.0-70.0) % Lymphocytes % (Manual) (22.0-35.0) % Monocytes % (Manual) (1.0-6.0) % Platelet Evaluation (NORMAL) Polychromasia Hypochromasia Anisocytosis (manual) pCO2 (35-45) mm/Hg pO2 (80-100) mm/Hg HCO3 (21-28) mmol/L ABG pH (7.35-7.45) ABG Total CO2 (22-28) mmol.L ABG O2 Saturation (95-98) % ABG O2 Content (15-23) ML/dl ABG Base Excess (-2.0-3.0) mmol/L ABG Hemoglobin (11.7-17.4) g/dL ABG Carboxyhemoglobin (0.5-1.5) % POC ABG HHb (Measured) (0-5) % ABG Methemoglobin (0.0-3.0) % ABG O2 Capacity (16-24) mL/dl Hgb O2 Saturation (95.0-98.0) % FiO2 % Crit Value Called To Crit Value Called By Blood Gas Notified Time Sodium 151 H (132-148) mmol/L Potassium 4.7 (3.6-5.0) mmol/L Chloride 111 H (98-107) mmol/L Carbon Dioxide 31 (21-33) mmol/L Anion Gap 13 (10-20) BUN 105 H (7-21) mg/dL Creatinine 3.9 H (0.7-1.2) mg/dl Est GFR ( Amer) 14 Est GFR (Non-Af Amer) 11 POC Glucose (mg/dL) 230 H (65-110) mg/dL Random Glucose 251 H (70-110) mg/dL Calcium 9.5 (8.4-10.5) mg/dL Total Bilirubin 0.4 (0.2-1.3) mg/dL AST 20 (14-36) U/L ALT 15 (7-56) U/L Alkaline Phosphatase 67 (38-126) U/L Total Protein 7.7 (5.8-8.3) g/dL Albumin 4.0 (3.0-4.8) g/dL Globulin 3.7 gm/dL Albumin/Globulin Ratio 1.1 (1.1-1.8) 10/28/18 10/27/18 10/27/18 Range/Units 05:30 21:40 17:47 WBC (4.5-11.0) 10^3/uL RBC (3.5-6.1) 10^6/uL Hgb (12.0-16.0) g/dL Hct (36.0-48.0) % MCV (80.0-105.0) fl MCH (25.0-35.0) pg MCHC (31.0-37.0) g/dl RDW (11.5-14.5) % Plt Count (120.0-450.0) 10^3/uL Neut % (Auto) (50.0-68.0) % Lymph % (Auto) (22.0-35.0) % [place] % (Auto) (1.0-6.0) % Eos % (Auto) (1.5-5.0) % Baso % (Auto) (0.0-3.0) % Lymph # (Auto) (1.2-3.4) [place] # (Auto) (0.1-0.6) Eos # (Auto) (0.0-0.7) Baso # (Auto) (0.0-2.0) K/mm3 Absolute Neuts (auto) (1.4-6.5) Neutrophils % (Manual) (50.0-70.0) % Lymphocytes % (Manual) (22.0-35.0) % Monocytes % (Manual) (1.0-6.0) % Platelet Evaluation (NORMAL) Polychromasia Hypochromasia Anisocytosis (manual) pCO2 67 H (35-45) mm/Hg pO2 119.0 H (80-100) mm/Hg HCO3 30.8 H (21-28) mmol/L ABG pH 7.27 L (7.35-7.45) ABG Total CO2 32.9 H (22-28) mmol.L ABG O2 Saturation 99.7 H (95-98) % ABG O2 Content 13.6 L (15-23) ML/dl ABG Base Excess 2.7 (-2.0-3.0) mmol/L ABG Hemoglobin 9.9 L (11.7-17.4) g/dL ABG Carboxyhemoglobin 2.6 H (0.5-1.5) % POC ABG HHb (Measured) 0.3 (0-5) % ABG Methemoglobin 1.2 (0.0-3.0) % ABG O2 Capacity 13.6 L (16-24) mL/dl Hgb O2 Saturation 96.0 (95.0-98.0) % FiO2 30.0 % Crit Value Called To Dr. henriquez Crit Value Called By Leland garcia Blood Gas Notified Time 645 Sodium (132-148) mmol/L Potassium (3.6-5.0) mmol/L Chloride (98-107) mmol/L Carbon Dioxide (21-33) mmol/L Anion Gap (10-20) BUN (7-21) mg/dL Creatinine (0.7-1.2) mg/dl Est GFR ( Amer) Est GFR (Non-Af Amer) POC Glucose (mg/dL) 305 H 423 H* (65-110) mg/dL Random Glucose (70-110) mg/dL Calcium (8.4-10.5) mg/dL Total Bilirubin (0.2-1.3) mg/dL AST (14-36) U/L ALT (7-56) U/L Alkaline Phosphatase (38-126) U/L Total Protein (5.8-8.3) g/dL Albumin (3.0-4.8) g/dL Globulin gm/dL Albumin/Globulin Ratio (1.1-1.8) 10/27/18 10/27/18 10/27/18 Range/Units 15:56 11:48 11:10 WBC (4.5-11.0) 10^3/uL RBC (3.5-6.1) 10^6/uL Hgb (12.0-16.0) g/dL Hct (36.0-48.0) % MCV (80.0-105.0) fl MCH (25.0-35.0) pg MCHC (31.0-37.0) g/dl RDW (11.5-14.5) % Plt Count (120.0-450.0) 10^3/uL Neut % (Auto) (50.0-68.0) % Lymph % (Auto) (22.0-35.0) % [place] % (Auto) (1.0-6.0) % Eos % (Auto) (1.5-5.0) % Baso % (Auto) (0.0-3.0) % Lymph # (Auto) (1.2-3.4) [place] # (Auto) (0.1-0.6) Eos # (Auto) (0.0-0.7) Baso # (Auto) (0.0-2.0) K/mm3 Absolute Neuts (auto) (1.4-6.5) Neutrophils % (Manual) (50.0-70.0) % Lymphocytes % (Manual) (22.0-35.0) % Monocytes % (Manual) (1.0-6.0) % Platelet Evaluation (NORMAL) Polychromasia Hypochromasia Anisocytosis (manual) pCO2 66 H (35-45) mm/Hg pO2 92.0 (80-100) mm/Hg HCO3 29.6 H (21-28) mmol/L ABG pH 7.26 L (7.35-7.45) ABG Total CO2 31.6 H (22-28) mmol.L ABG O2 Saturation 99.1 H (95-98) % ABG O2 Content 12.9 L (15-23) ML/dl ABG Base Excess 1.6 (-2.0-3.0) mmol/L ABG Hemoglobin 9.5 L (11.7-17.4) g/dL ABG Carboxyhemoglobin 2.6 H (0.5-1.5) % POC ABG HHb (Measured) 0.9 (0-5) % ABG Methemoglobin 1.2 (0.0-3.0) % ABG O2 Capacity 13.0 L (16-24) mL/dl Hgb O2 Saturation 95.4 (95.0-98.0) % FiO2 28.0 % Crit Value Called To Crit Value Called By García Blood Gas Notified Time 1157 Sodium (132-148) mmol/L Potassium (3.6-5.0) mmol/L Chloride (98-107) mmol/L Carbon Dioxide (21-33) mmol/L Anion Gap (10-20) BUN (7-21) mg/dL Creatinine (0.7-1.2) mg/dl Est GFR ( Amer) Est GFR (Non-Af Amer) POC Glucose (mg/dL) 444 H* 361 H (65-110) mg/dL Random Glucose (70-110) mg/dL Calcium (8.4-10.5) mg/dL Total Bilirubin (0.2-1.3) mg/dL AST (14-36) U/L ALT (7-56) U/L Alkaline Phosphatase (38-126) U/L Total Protein (5.8-8.3) g/dL Albumin (3.0-4.8) g/dL Globulin gm/dL Albumin/Globulin Ratio (1.1-1.8) 10/27/18 10/27/18 Range/Units 07:24 06:00 WBC (4.5-11.0) 10^3/uL RBC (3.5-6.1) 10^6/uL Hgb (12.0-16.0) g/dL Hct (36.0-48.0) % MCV (80.0-105.0) fl MCH (25.0-35.0) pg MCHC (31.0-37.0) g/dl RDW (11.5-14.5) % Plt Count (120.0-450.0) 10^3/uL Neut % (Auto) (50.0-68.0) % Lymph % (Auto) (22.0-35.0) % [place] % (Auto) (1.0-6.0) % Eos % (Auto) (1.5-5.0) % Baso % (Auto) (0.0-3.0) % Lymph # (Auto) (1.2-3.4) [place] # (Auto) (0.1-0.6) Eos # (Auto) (0.0-0.7) Baso # (Auto) (0.0-2.0) K/mm3 Absolute Neuts (auto) (1.4-6.5) Neutrophils % (Manual) 92 H (50.0-70.0) % Lymphocytes % (Manual) 6 L (22.0-35.0) % Monocytes % (Manual) 2 (1.0-6.0) % Platelet Evaluation Normal (NORMAL) Polychromasia Slight Hypochromasia 1+ Anisocytosis (manual) 1+ pCO2 (35-45) mm/Hg pO2 (80-100) mm/Hg HCO3 (21-28) mmol/L ABG pH (7.35-7.45) ABG Total CO2 (22-28) mmol.L ABG O2 Saturation (95-98) % ABG O2 Content (15-23) ML/dl ABG Base Excess (-2.0-3.0) mmol/L ABG Hemoglobin (11.7-17.4) g/dL ABG Carboxyhemoglobin (0.5-1.5) % POC ABG HHb (Measured) (0-5) % ABG Methemoglobin (0.0-3.0) % ABG O2 Capacity (16-24) mL/dl Hgb O2 Saturation (95.0-98.0) % FiO2 % Crit Value Called To Crit Value Called By Blood Gas Notified Time Sodium (132-148) mmol/L Potassium (3.6-5.0) mmol/L Chloride (98-107) mmol/L Carbon Dioxide (21-33) mmol/L Anion Gap (10-20) BUN (7-21) mg/dL Creatinine (0.7-1.2) mg/dl Est GFR ( Amer) Est GFR (Non-Af Amer) POC Glucose (mg/dL) 397 H (65-110) mg/dL Random Glucose (70-110) mg/dL Calcium (8.4-10.5) mg/dL Total Bilirubin (0.2-1.3) mg/dL AST (14-36) U/L ALT (7-56) U/L Alkaline Phosphatase (38-126) U/L Total Protein (5.8-8.3) g/dL Albumin (3.0-4.8) g/dL Globulin gm/dL Albumin/Globulin Ratio (1.1-1.8) Laboratory Results - last 24 hr 10/27/18 10/27/18 10/27/18 06:00 07:24 11:10 WBC RBC Hgb Hct MCV MCH MCHC RDW Plt Count Neut % (Auto) Lymph % (Auto) [place] % (Auto) Eos % (Auto) Baso % (Auto) Lymph # (Auto) [place] # (Auto) Eos # (Auto) Baso # (Auto) Absolute Neuts (auto) Neutrophils % (Manual) 92 H Lymphocytes % (Manual) 6 L Monocytes % (Manual) 2 Platelet Evaluation Normal Polychromasia Slight Hypochromasia 1+ Anisocytosis (manual) 1+ pCO2 pO2 HCO3 ABG pH ABG Total CO2 ABG O2 Saturation ABG O2 Content ABG Base Excess ABG Hemoglobin ABG Carboxyhemoglobin POC ABG HHb (Measured) ABG Methemoglobin ABG O2 Capacity Hgb O2 Saturation FiO2 Crit Value Called To Crit Value Called By Blood Gas Notified Time Sodium Potassium Chloride Carbon Dioxide Anion Gap BUN Creatinine Est GFR ( Amer) Est GFR (Non-Af Amer) POC Glucose (mg/dL) 397 H 361 H Random Glucose Calcium Total Bilirubin AST ALT Alkaline Phosphatase Total Protein Albumin Globulin Albumin/Globulin Ratio 03/10/19 03/10/19 03/10/19 11:48 15:56 17:47 WBC RBC Hgb Hct MCV MCH MCHC RDW Plt Count Neut % (Auto) Lymph % (Auto) [place] % (Auto) Eos % (Auto) Baso % (Auto) Lymph # (Auto) [place] # (Auto) Eos # (Auto) Baso # (Auto) Absolute Neuts (auto) Neutrophils % (Manual) Lymphocytes % (Manual) Monocytes % (Manual) Platelet Evaluation Polychromasia Hypochromasia Anisocytosis (manual) pCO2 66 H pO2 92.0 HCO3 29.6 H ABG pH 7.26 L ABG Total CO2 31.6 H ABG O2 Saturation 99.1 H ABG O2 Content 12.9 L ABG Base Excess 1.6 ABG Hemoglobin 9.5 L ABG Carboxyhemoglobin 2.6 H POC ABG HHb (Measured) 0.9 ABG Methemoglobin 1.2 ABG O2 Capacity 13.0 L Hgb O2 Saturation 95.4 FiO2 28.0 Crit Value Called To Crit Value Called By García Blood Gas Notified Time 1157 Sodium Potassium Chloride Carbon Dioxide Anion Gap BUN Creatinine Est GFR ( Amer) Est GFR (Non-Af Amer) POC Glucose (mg/dL) 444 H* 423 H* Random Glucose Calcium Total Bilirubin AST ALT Alkaline Phosphatase Total Protein Albumin Globulin Albumin/Globulin Ratio 10/27/18 10/28/18 10/28/18 21:40 05:30 06:30 WBC 11.8 H RBC 3.61 Hgb 9.5 L Hct 33.5 L MCV 92.8 MCH 26.3 MCHC 28.4 L RDW 16.9 H Plt Count 205 Neut % (Auto) 91.5 H Lymph % (Auto) 5.9 L [place] % (Auto) 2.6 Eos % (Auto) 0.0 L Baso % (Auto) 0.0 Lymph # (Auto) 0.7 L [place] # (Auto) 0.3 Eos # (Auto) 0.0 Baso # (Auto) 0.00 Absolute Neuts (auto) 10.77 H Neutrophils % (Manual) Lymphocytes % (Manual) Monocytes % (Manual) Platelet Evaluation Polychromasia Hypochromasia Anisocytosis (manual) pCO2 67 H pO2 119.0 H HCO3 30.8 H ABG pH 7.27 L ABG Total CO2 32.9 H ABG O2 Saturation 99.7 H ABG O2 Content 13.6 L ABG Base Excess 2.7 ABG Hemoglobin 9.9 L ABG Carboxyhemoglobin 2.6 H POC ABG HHb (Measured) 0.3 ABG Methemoglobin 1.2 ABG O2 Capacity 13.6 L Hgb O2 Saturation 96.0 FiO2 30.0 Crit Value Called To Dr. henriquez Crit Value Called By Leland garcia Blood Gas Notified Time 645 Sodium Potassium Chloride Carbon Dioxide Anion Gap BUN Creatinine Est GFR ( Amer) Est GFR (Non-Af Amer) POC Glucose (mg/dL) 305 H Random Glucose Calcium Total Bilirubin AST ALT Alkaline Phosphatase Total Protein Albumin Globulin Albumin/Globulin Ratio 10/28/18 10/28/18 06:30 07:59 WBC RBC Hgb Hct MCV MCH MCHC RDW Plt Count Neut % (Auto) Lymph % (Auto) [place] % (Auto) Eos % (Auto) Baso % (Auto) Lymph # (Auto) [place] # (Auto) Eos # (Auto) Baso # (Auto) Absolute Neuts (auto) Neutrophils % (Manual) Lymphocytes % (Manual) Monocytes % (Manual) Platelet Evaluation Polychromasia Hypochromasia Anisocytosis (manual) pCO2 pO2 HCO3 ABG pH ABG Total CO2 ABG O2 Saturation ABG O2 Content ABG Base Excess ABG Hemoglobin ABG Carboxyhemoglobin POC ABG HHb (Measured) ABG Methemoglobin ABG O2 Capacity Hgb O2 Saturation FiO2 Crit Value Called To Crit Value Called By Blood Gas Notified Time Sodium 151 H Potassium 4.7 Chloride 111 H Carbon Dioxide 31 Anion Gap 13 BUN 105 H Creatinine 3.9 H Est GFR ( Amer) 14 Est GFR (Non-Af Amer) 11 POC Glucose (mg/dL) 230 H Random Glucose 251 H Calcium 9.5 Total Bilirubin 0.4 AST 20 ALT 15 Alkaline Phosphatase 67 Total Protein 7.7 Albumin 4.0 Globulin 3.7 Albumin/Globulin Ratio 1.1 Radiology Impressions: Radiology Impressions Chest X-Ray 10/27/18 06:00 IMPRESSION: Status post extubation and nasogastric tube removal. No acute airspace disease appreciated bilaterally. No pleural effusion or pneumothorax bilaterally. Fingerstick Blood Sugar Results: 305 Critical Care Progress Note - Nutrition Nutrition: Nutrition Category Date Time Status NPO Diet [DIET] Diets 10/24/18 Dinner Ordered Assessment/Plan - Assessment and Plan (Free Text) Assessment: 73 y/o female admitted to ICU for hypertensive emergency complicated by ventilator dependent hypercapnic respiratory failure in the setting of cardiorenal syndrome Plan: Neuro: -AAOX3 -resolved AMS Cardio: -resolved hyertensive emergency -continue home amlodipine, metoprolol -continue verapamil for HR >110 -hold diuretics for diastolic dysfunction -pacemaker interrogation recently done for paroxysmal Afib Pulm: -weaned off BiPAP today -continue meropenem for RLL pneumonia -continue budesonide , xopenex, montelukast for COPD -AB119 GI: -CT Abd/Pelvis reveals perinephric changes L>R. Potential pyelonephritis -GI following Renal: -LEIGHA due to cardiorenal syndrome -hold diuretics/nehrotoxic drugs Prophylaxis: PPI SCD Diet advanced to pureed Continue ICU management Case reviewed and discussed with attending Dr Santiago <Vitaliy Santiago - Last Filed: 10/28/18 15:45> CCU Objective - Vital Signs / Intake & Output Vital Signs (Last 4 hours): Vital Signs Pulse Resp BP Pulse Ox 10/28/18 15:09 60 176/68 H 10/28/18 14:00 62 16 176/68 H 98 10/28/18 13:50 62 20 98 10/28/18 13:47 72 170/100 H 10/28/18 13:40 65 17 99 10/28/18 13:30 62 17 99 10/28/18 13:20 63 16 99 10/28/18 13:10 61 20 98 10/28/18 13:00 68 19 183/63 H 99 10/28/18 12:50 71 18 98 10/28/18 12:40 70 17 98 10/28/18 12:30 69 16 98 10/28/18 12:20 60 16 98 10/28/18 12:10 67 18 98 10/28/18 12:01 71 18 170/100 H 98 10/28/18 12:00 70 19 98 10/28/18 11:50 64 14 97 10/28/18 11:46 84 126/61 Intake and Output (Last 8hrs): Intake & Output 10/28/18 10/28/18 10/28/18 06:59 14:59 22:59 Intake Total 820 70 Output Total 400 Balance 420 70 Weight 209 lb 6.4 oz Intake: IV 650 70 Right Hand 550 Oral 0 Tube Feeding 0 TPN/PPN 0 Blood Product 0 Lipid 0 Albumin 0 Other 170 Output: Urine 400 Urethral ([place]) 400 Stool 0 Urine/Stool Mix 0 Emesis 0 Oral Regurgitation 0 Other 0 Other: # Voids Urethral ([place]) 0 # Bowel Movements 0 - Medications Active Medications: Active Medications Generic Name Dose Route Start Last Admin Trade Name Freq PRN Reason Stop Dose Admin Acetaminophen 650 mg 10/18/18 19:35 10/21/18 16:47 Tylenol 325mg Tab PO 650 mg Q6H PRN Administration Fever >100.4 F Albuterol/Ipratropium 3 ml 10/18/18 19:35 10/19/18 10:38 Duoneb 3 Mg/0.5 Mg (3 Ml) Ud IH 3 ml Q2H PRN Administration Shortness of Breath Amlodipine Besylate 10 mg 10/23/18 12:15 10/28/18 11:19 Norvasc PO 10 mg DAILY [facility] Administration Apixaban 2.5 mg 10/18/18 19:30 10/28/18 09:02 Eliquis PO Not Given BID [facility] Protocol Atorvastatin Calcium 40 mg 10/19/18 10:00 10/28/18 09:03 Lipitor PO Not Given DAILY [facility] Budesonide 0.5 mg 10/22/18 08:00 10/28/18 07:29 Pulmicort Respules IH 0.5 mg [id number] LINDA Administration Folic Acid 1 mg 10/19/18 10:00 10/28/18 09:34 Folic Acid PO Not Given DAILY [facility] Hydralazine HCl 50 mg 10/22/18 18:00 10/28/18 15:09 Apresoline PO 50 mg BID LINDA Administration Hydralazine HCl 10 mg 10/23/18 17:33 10/28/18 11:46 Apresoline IVP 10 mg Q4 PRN Administration SBP > 180 Nicardipine HCl 20 mg in 200 mls @ 50 mls/hr 10/23/18 12:16 10/24/18 07:15 Cardene Iv Premix IV 0 mg/hr .Q4H PRN 0 mls/hr TITRATE PER MD ORDER Titration Protocol 5 MG/HR Propofol 1,000 mg in 100 mls @ 2.879 mls/hr 10/23/18 13:33 10/25/18 06:53 Diprivan IV 0 mcg/kg/min .Q24H PRN 0 mls/hr TITRATE PER MD ORDER Titration Protocol 5 MCG/KG/MIN Midazolam 100 mg/100ml in NS 100 mg in 100 mls @ 1 mls/hr 10/23/18 14:09 10/25/18 06:53 Midazolam 100 Mg/100ml In Ns IV 0 mg/hr .Q24H PRN 0 mls/hr Sedation Titration Protocol 1 MG/HR Meropenem 250 mg/ Sodium 100 mls @ 100 mls/hr 10/24/18 10:15 10/28/18 09:17 Chloride IVPB 10/31/18 10:16 100 mls/hr Q12H LINDA Administration Protocol diltiaZEM IVPB 100mg in NS 100 mls @ 5 mls/hr 10/26/18 07:55 10/28/18 12:00 Cardizem 100mg In Ns IV 2.5 mg/hr .Q20H PRN 2.5 mls/hr TITRATE PER MD ORDER Titration Protocol 5 MG/HR Dextrose 1,000 mls @ 50 mls/hr 10/27/18 08:08 10/27/18 22:30 Dextrose 5% In Water 1000 Ml IV 50 mls/hr .Q20H LINDA Administration Insulin Human Regular 0 units 10/27/18 22:00 10/28/18 11:47 Humulin R High SC 7 units ACHS LINDA Administration Protocol Levalbuterol HCl 1.25 mg 10/18/18 20:00 10/28/18 13:25 Xopenex IH 1.25 mg [id number] LINDA Administration Methylprednisolone 40 mg 10/24/18 10:00 10/28/18 09:09 Solu-Medrol IVP 40 mg Q12 LINDA Administration Metoprolol Tartrate 50 mg 10/18/18 19:30 10/28/18 13:47 Lopressor PO 50 mg BID LINDA Administration Montelukast Sodium 10 mg 10/18/18 22:00 10/27/18 21:10 Singulair PO Not Given HS LINDA Ondansetron HCl 4 mg 10/18/18 19:35 10/19/18 07:55 Zofran Inj IVP 4 mg Q6H PRN Administration Nausea/Vomiting Pantoprazole Sodium 40 mg 10/25/18 10:00 10/28/18 09:10 Protonix Inj IVP 40 mg DAILY LINDA Administration Polyethylene Glycol 17 gm 10/25/18 18:00 10/28/18 09:03 Miralax PO Not Given BID LINDA Pregabalin 75 mg 10/18/18 19:30 10/24/18 09:45 Lyrica PO 75 mg BID LINDA Administration Sildenafil Citrate 20 mg 10/19/18 10:00 10/28/18 09:34 Revatio PO Not Given BID LINDA Verapamil HCl 2.5 mg 10/24/18 12:34 10/26/18 02:12 Verapamil Inj IVP 2.5 mg Q6H PRN Administration for Heart rate >120 Vitamin A 1 ea 10/26/18 10:00 10/28/18 09:18 Vitamin A & D Oint Ud Foilpak TOP 1 ea BID LINDA Administration - Patient Studies Lab Studies: Microbiology Studies 10/23/18 14:00 Blood Culture - Final Blood NO GROWTH AFTER 5 DAYS Gram Stain - Final TEST NOT PERFORMED 10/25/18 23:01 Gram Stain - Final Sputum Sputum Culture - Final NORMAL ORAL JAYLEN Lab Studies 10/28/18 10/28/18 10/28/18 Range/Units 11:06 09:50 07:59 WBC (4.5-11.0) 10^3/uL RBC (3.5-6.1) 10^6/uL Hgb (12.0-16.0) g/dL Hct (36.0-48.0) % MCV (80.0-105.0) fl MCH (25.0-35.0) pg MCHC (31.0-37.0) g/dl RDW (11.5-14.5) % Plt Count (120.0-450.0) 10^3/uL Neut % (Auto) (50.0-68.0) % Lymph % (Auto) (22.0-35.0) % [place] % (Auto) (1.0-6.0) % Eos % (Auto) (1.5-5.0) % Baso % (Auto) (0.0-3.0) % Lymph # (Auto) (1.2-3.4) [place] # (Auto) (0.1-0.6) Eos # (Auto) (0.0-0.7) Baso # (Auto) (0.0-2.0) K/mm3 Absolute Neuts (auto) (1.4-6.5) pCO2 59 H (35-45) mm/Hg pO2 97.0 (80-100) mm/Hg HCO3 31.1 H (21-28) mmol/L ABG pH 7.33 L (7.35-7.45) ABG Total CO2 32.9 H (22-28) mmol.L ABG O2 Saturation 99.6 H (95-98) % ABG O2 Content 13.4 L (15-23) ML/dl ABG Base Excess 4.1 H (-2.0-3.0) mmol/L ABG Hemoglobin 9.8 L (11.7-17.4) g/dL ABG Carboxyhemoglobin 2.6 H (0.5-1.5) % POC ABG HHb (Measured) 0.4 (0-5) % ABG Methemoglobin 1.2 (0.0-3.0) % ABG O2 Capacity 13.5 L (16-24) mL/dl Hgb O2 Saturation 95.8 (95.0-98.0) % FiO2 30.0 % Crit Value Called To Crit Value Called By Blood Gas Notified Time Sodium (132-148) mmol/L Potassium (3.6-5.0) mmol/L Chloride (98-107) mmol/L Carbon Dioxide (21-33) mmol/L Anion Gap (10-20) BUN (7-21) mg/dL Creatinine (0.7-1.2) mg/dl Est GFR ( Amer) Est GFR (Non-Af Amer) POC Glucose (mg/dL) 260 H 230 H (65-110) mg/dL Random Glucose (70-110) mg/dL Calcium (8.4-10.5) mg/dL Total Bilirubin (0.2-1.3) mg/dL AST (14-36) U/L ALT (7-56) U/L Alkaline Phosphatase (38-126) U/L Total Protein (5.8-8.3) g/dL Albumin (3.0-4.8) g/dL Globulin gm/dL Albumin/Globulin Ratio (1.1-1.8) 10/28/18 10/28/18 10/28/18 Range/Units 06:30 06:30 05:30 WBC 11.8 H (4.5-11.0) 10^3/uL RBC 3.61 (3.5-6.1) 10^6/uL Hgb 9.5 L (12.0-16.0) g/dL Hct 33.5 L (36.0-48.0) % MCV 92.8 (80.0-105.0) fl MCH 26.3 (25.0-35.0) pg MCHC 28.4 L (31.0-37.0) g/dl RDW 16.9 H (11.5-14.5) % Plt Count 205 (120.0-450.0) 10^3/uL Neut % (Auto) 91.5 H (50.0-68.0) % Lymph % (Auto) 5.9 L (22.0-35.0) % [place] % (Auto) 2.6 (1.0-6.0) % Eos % (Auto) 0.0 L (1.5-5.0) % Baso % (Auto) 0.0 (0.0-3.0) % Lymph # (Auto) 0.7 L (1.2-3.4) [place] # (Auto) 0.3 (0.1-0.6) Eos # (Auto) 0.0 (0.0-0.7) Baso # (Auto) 0.00 (0.0-2.0) K/mm3 Absolute Neuts (auto) 10.77 H (1.4-6.5) pCO2 67 H (35-45) mm/Hg pO2 119.0 H (80-100) mm/Hg HCO3 30.8 H (21-28) mmol/L ABG pH 7.27 L (7.35-7.45) ABG Total CO2 32.9 H (22-28) mmol.L ABG O2 Saturation 99.7 H (95-98) % ABG O2 Content 13.6 L (15-23) ML/dl ABG Base Excess 2.7 (-2.0-3.0) mmol/L ABG Hemoglobin 9.9 L (11.7-17.4) g/dL ABG Carboxyhemoglobin 2.6 H (0.5-1.5) % POC ABG HHb (Measured) 0.3 (0-5) % ABG Methemoglobin 1.2 (0.0-3.0) % ABG O2 Capacity 13.6 L (16-24) mL/dl Hgb O2 Saturation 96.0 (95.0-98.0) % FiO2 30.0 % Crit Value Called To Dr. henriquez Crit Value Called By Leland garcia Blood Gas Notified Time 645 Sodium 151 H (132-148) mmol/L Potassium 4.7 (3.6-5.0) mmol/L Chloride 111 H (98-107) mmol/L Carbon Dioxide 31 (21-33) mmol/L Anion Gap 13 (10-20) BUN 105 H (7-21) mg/dL Creatinine 3.9 H (0.7-1.2) mg/dl Est GFR ( Amer) 14 Est GFR (Non-Af Amer) 11 POC Glucose (mg/dL) (65-110) mg/dL Random Glucose 251 H (70-110) mg/dL Calcium 9.5 (8.4-10.5) mg/dL Total Bilirubin 0.4 (0.2-1.3) mg/dL AST 20 (14-36) U/L ALT 15 (7-56) U/L Alkaline Phosphatase 67 (38-126) U/L Total Protein 7.7 (5.8-8.3) g/dL Albumin 4.0 (3.0-4.8) g/dL Globulin 3.7 gm/dL Albumin/Globulin Ratio 1.1 (1.1-1.8) 10/27/18 10/27/18 10/27/18 Range/Units 21:40 17:47 15:56 WBC (4.5-11.0) 10^3/uL RBC (3.5-6.1) 10^6/uL Hgb (12.0-16.0) g/dL Hct (36.0-48.0) % MCV (80.0-105.0) fl MCH (25.0-35.0) pg MCHC (31.0-37.0) g/dl RDW (11.5-14.5) % Plt Count (120.0-450.0) 10^3/uL Neut % (Auto) (50.0-68.0) % Lymph % (Auto) (22.0-35.0) % [place] % (Auto) (1.0-6.0) % Eos % (Auto) (1.5-5.0) % Baso % (Auto) (0.0-3.0) % Lymph # (Auto) (1.2-3.4) [place] # (Auto) (0.1-0.6) Eos # (Auto) (0.0-0.7) Baso # (Auto) (0.0-2.0) K/mm3 Absolute Neuts (auto) (1.4-6.5) pCO2 (35-45) mm/Hg pO2 (80-100) mm/Hg HCO3 (21-28) mmol/L ABG pH (7.35-7.45) ABG Total CO2 (22-28) mmol.L ABG O2 Saturation (95-98) % ABG O2 Content (15-23) ML/dl ABG Base Excess (-2.0-3.0) mmol/L ABG Hemoglobin (11.7-17.4) g/dL ABG Carboxyhemoglobin (0.5-1.5) % POC ABG HHb (Measured) (0-5) % ABG Methemoglobin (0.0-3.0) % ABG O2 Capacity (16-24) mL/dl Hgb O2 Saturation (95.0-98.0) % FiO2 % Crit Value Called To Crit Value Called By Blood Gas Notified Time Sodium (132-148) mmol/L Potassium (3.6-5.0) mmol/L Chloride (98-107) mmol/L Carbon Dioxide (21-33) mmol/L Anion Gap (10-20) BUN (7-21) mg/dL Creatinine (0.7-1.2) mg/dl Est GFR ( Amer) Est GFR (Non-Af Amer) POC Glucose (mg/dL) 305 H 423 H* 444 H* (65-110) mg/dL Random Glucose (70-110) mg/dL Calcium (8.4-10.5) mg/dL Total Bilirubin (0.2-1.3) mg/dL AST (14-36) U/L ALT (7-56) U/L Alkaline Phosphatase (38-126) U/L Total Protein (5.8-8.3) g/dL Albumin (3.0-4.8) g/dL Globulin gm/dL Albumin/Globulin Ratio (1.1-1.8) 10/27/18 Range/Units 11:10 WBC (4.5-11.0) 10^3/uL RBC (3.5-6.1) 10^6/uL Hgb (12.0-16.0) g/dL Hct (36.0-48.0) % MCV (80.0-105.0) fl MCH (25.0-35.0) pg MCHC (31.0-37.0) g/dl RDW (11.5-14.5) % Plt Count (120.0-450.0) 10^3/uL Neut % (Auto) (50.0-68.0) % Lymph % (Auto) (22.0-35.0) % [place] % (Auto) (1.0-6.0) % Eos % (Auto) (1.5-5.0) % Baso % (Auto) (0.0-3.0) % Lymph # (Auto) (1.2-3.4) [place] # (Auto) (0.1-0.6) Eos # (Auto) (0.0-0.7) Baso # (Auto) (0.0-2.0) K/mm3 Absolute Neuts (auto) (1.4-6.5) pCO2 (35-45) mm/Hg pO2 (80-100) mm/Hg HCO3 (21-28) mmol/L ABG pH (7.35-7.45) ABG Total CO2 (22-28) mmol.L ABG O2 Saturation (95-98) % ABG O2 Content (15-23) ML/dl ABG Base Excess (-2.0-3.0) mmol/L ABG Hemoglobin (11.7-17.4) g/dL ABG Carboxyhemoglobin (0.5-1.5) % POC ABG HHb (Measured) (0-5) % ABG Methemoglobin (0.0-3.0) % ABG O2 Capacity (16-24) mL/dl Hgb O2 Saturation (95.0-98.0) % FiO2 % Crit Value Called To Crit Value Called By Blood Gas Notified Time Sodium (132-148) mmol/L Potassium (3.6-5.0) mmol/L Chloride (98-107) mmol/L Carbon Dioxide (21-33) mmol/L Anion Gap (10-20) BUN (7-21) mg/dL Creatinine (0.7-1.2) mg/dl Est GFR ( Amer) Est GFR (Non-Af Amer) POC Glucose (mg/dL) 361 H (65-110) mg/dL Random Glucose (70-110) mg/dL Calcium (8.4-10.5) mg/dL Total Bilirubin (0.2-1.3) mg/dL AST (14-36) U/L ALT (7-56) U/L Alkaline Phosphatase (38-126) U/L Total Protein (5.8-8.3) g/dL Albumin (3.0-4.8) g/dL Globulin gm/dL Albumin/Globulin Ratio (1.1-1.8) Laboratory Results - last 24 hr 10/27/18 10/27/18 10/27/18 11:10 15:56 17:47 WBC RBC Hgb Hct MCV MCH MCHC RDW Plt Count Neut % (Auto) Lymph % (Auto) [place] % (Auto) Eos % (Auto) Baso % (Auto) Lymph # (Auto) [place] # (Auto) Eos # (Auto) Baso # (Auto) Absolute Neuts (auto) pCO2 pO2 HCO3 ABG pH ABG Total CO2 ABG O2 Saturation ABG O2 Content ABG Base Excess ABG Hemoglobin ABG Carboxyhemoglobin POC ABG HHb (Measured) ABG Methemoglobin ABG O2 Capacity Hgb O2 Saturation FiO2 Crit Value Called To Crit Value Called By Blood Gas Notified Time Sodium Potassium Chloride Carbon Dioxide Anion Gap BUN Creatinine Est GFR ( Amer) Est GFR (Non-Af Amer) POC Glucose (mg/dL) 361 H 444 H* 423 H* Random Glucose Calcium Total Bilirubin AST ALT Alkaline Phosphatase Total Protein Albumin Globulin Albumin/Globulin Ratio 10/27/18 10/28/18 10/28/18 21:40 05:30 06:30 WBC 11.8 H RBC 3.61 Hgb 9.5 L Hct 33.5 L MCV 92.8 MCH 26.3 MCHC 28.4 L RDW 16.9 H Plt Count 205 Neut % (Auto) 91.5 H Lymph % (Auto) 5.9 L [place] % (Auto) 2.6 Eos % (Auto) 0.0 L Baso % (Auto) 0.0 Lymph # (Auto) 0.7 L [place] # (Auto) 0.3 Eos # (Auto) 0.0 Baso # (Auto) 0.00 Absolute Neuts (auto) 10.77 H pCO2 67 H pO2 119.0 H HCO3 30.8 H ABG pH 7.27 L ABG Total CO2 32.9 H ABG O2 Saturation 99.7 H ABG O2 Content 13.6 L ABG Base Excess 2.7 ABG Hemoglobin 9.9 L ABG Carboxyhemoglobin 2.6 H POC ABG HHb (Measured) 0.3 ABG Methemoglobin 1.2 ABG O2 Capacity 13.6 L Hgb O2 Saturation 96.0 FiO2 30.0 Crit Value Called To Dr. henriquez Crit Value Called By Leland garcia Blood Gas Notified Time 645 Sodium Potassium Chloride Carbon Dioxide Anion Gap BUN Creatinine Est GFR ( Amer) Est GFR (Non-Af Amer) POC Glucose (mg/dL) 305 H Random Glucose Calcium Total Bilirubin AST ALT Alkaline Phosphatase Total Protein Albumin Globulin Albumin/Globulin Ratio 10/28/18 10/28/18 10/28/18 06:30 07:59 09:50 WBC RBC Hgb Hct MCV MCH MCHC RDW Plt Count Neut % (Auto) Lymph % (Auto) [place] % (Auto) Eos % (Auto) Baso % (Auto) Lymph # (Auto) [place] # (Auto) Eos # (Auto) Baso # (Auto) Absolute Neuts (auto) pCO2 59 H pO2 97.0 HCO3 31.1 H ABG pH 7.33 L ABG Total CO2 32.9 H ABG O2 Saturation 99.6 H ABG O2 Content 13.4 L ABG Base Excess 4.1 H ABG Hemoglobin 9.8 L ABG Carboxyhemoglobin 2.6 H POC ABG HHb (Measured) 0.4 ABG Methemoglobin 1.2 ABG O2 Capacity 13.5 L Hgb O2 Saturation 95.8 FiO2 30.0 Crit Value Called To Crit Value Called By Blood Gas Notified Time Sodium 151 H Potassium 4.7 Chloride 111 H Carbon Dioxide 31 Anion Gap 13 BUN 105 H Creatinine 3.9 H Est GFR ( Amer) 14 Est GFR (Non-Af Amer) 11 POC Glucose (mg/dL) 230 H Random Glucose 251 H Calcium 9.5 Total Bilirubin 0.4 AST 20 ALT 15 Alkaline Phosphatase 67 Total Protein 7.7 Albumin 4.0 Globulin 3.7 Albumin/Globulin Ratio 1.1 10/28/18 11:06 WBC RBC Hgb Hct MCV MCH MCHC RDW Plt Count Neut % (Auto) Lymph % (Auto) [place] % (Auto) Eos % (Auto) Baso % (Auto) Lymph # (Auto) [place] # (Auto) Eos # (Auto) Baso # (Auto) Absolute Neuts (auto) pCO2 pO2 HCO3 ABG pH ABG Total CO2 ABG O2 Saturation ABG O2 Content ABG Base Excess ABG Hemoglobin ABG Carboxyhemoglobin POC ABG HHb (Measured) ABG Methemoglobin ABG O2 Capacity Hgb O2 Saturation FiO2 Crit Value Called To Crit Value Called By Blood Gas Notified Time Sodium Potassium Chloride Carbon Dioxide Anion Gap BUN Creatinine Est GFR ( Amer) Est GFR (Non-Af Amer) POC Glucose (mg/dL) 260 H Random Glucose Calcium Total Bilirubin AST ALT Alkaline Phosphatase Total Protein Albumin Globulin Albumin/Globulin Ratio Radiology Impressions: Radiology Impressions Chest X-Ray 10/28/18 06:00 IMPRESSION: Persistent mild but improved pulmonary venous congestive changes with suspected small bilateral effusions. Cardiomegaly. Critical Care Progress Note - Nutrition Nutrition: Nutrition Category Date Time Status Pureed [Dysphagia/Modified Consistency Diet] [DIET] Diets 10/28/18 Lunch Ordered Attending/Attestation - Attestation I have personally seen and examined this patient.: Yes I have fully participated in the care of the patient.: Yes I have reviewed all pertinent clinical information: Yes Notes (Text): 10/28/18 15:[address] Santiago note
--- NOTE | 2018-10-28 08:24 | PN ---
DATE: 10/26/2018 PULMONARY PROGRESS NOTE SUBJECTIVE: The patient remains in the intensive care unit, intubated and sedated. The entire family is at the patient's bedside. The patient was evaluated and case discussed with the family. It was made known that we will work with the laundry equipment operator on-call to attempt to wean the patient for mechanical ventilation. PHYSICAL EXAMINATION: VITAL SIGNS: Remained abnormal. The patient is significantly tachycardic with a pulse of 140. She is receiving medication for this right now. She has a low grade fever, respiratory rate is 20, blood pressure is 130/70. HEENT: Normocephalic, atraumatic. NECK: There is no jugular venous distension. CARDIOVASCULAR: Regular rhythm. S1 and S2. Gallop is auscultated. There is also a systolic ejection murmur at the lower left sternal border. LUNGS: Bilateral rales noted throughout. No wheezing was appreciated. ABDOMEN: Soft. Bowel sounds normoactive without mass, guarding, rebound or organomegaly. EXTREMITIES: Reveal trace edema. No clubbing or cyanosis. NEUROLOGIC: The patient is sedated and intubated. SKIN: Dry; intact LABORATORY DATA: Chest x-ray today shows mild improvement with pulmonary vascular congestion. IMPRESSION: 1. Tachycardia. 2. Respiratory failure. 3. Severe congestive heart failure. 4. Advanced chronic obstructive pulmonary disease. 5. Right lower lobe pneumonia. 6. Atrial fibrillation. PLAN: We had planned to try to extubate the patient as the congestive failure seems to be improved, but the patient is significantly tachycardic, receiving medication. We will defer to laundry equipment operator and carton stenciler to make sure that the patient remains hemodynamically stable prior to proceeding with further weaning of mechanical ventilation. Although the patient's pulmonary vascular congestion is somewhat improved clinically and radiographically, the patient still is in extremis. We have discussed the case with the laundry equipment operator, nurse and family. We will follow closely with you and decide on further measures once the tachycardia is alleviated. Thank you for the opportunity to care for this patient. Raghu Butsillo MD [facility]
[2018-10-28] MEDS: Insulin Reg-HIGH-Coverage SC SCH ×4 (08:25→22:44)
--- NOTE | 2018-10-28 08:57 | PN ---
DATE: 10/28/2018 SUBJECTIVE: The patient seen and examined at bedside. She appears to be comfortable arousable, but very somnolent. She is on BIPAP 18/8 with FIO2 of 30%, backup rate 16. She is breathing about 18-20 times per minute with tidal volume fluctuated between 300 and 380 mL. She is on 5 mg per hour of Cardizem drip. OBJECTIVE: VITAL SIGNS: As follows; heart rate 75, blood pressure 171/59, oxygen saturation 98%. The patient is afebrile. HEENT: Head and neck atraumatic. LUNGS: Clear to auscultation bilaterally. HEART: Irregular rate and rhythm. S1, S2 distant. ABDOMEN: Soft, nontender, nondistended. MUSCULOSKELETAL: No C/C/E. NEUROLOGIC: The patient is somnolent and was not seen moving all extremities on command. SKIN: Moist. PSYCHIATRIC: The patient is comfortable, but lethargic. LABORATORY DATA: WBC 11.8, hemoglobin 9.5 (stable), platelet count 205. Eosinophil zero. Sodium 151, potassium 4.7, chloride 111, BUN 105, creatinine 3.9, glucose 251, AST 20, ALT 15, total bilirubin 0.4. INR 1.33. ABG from today morning 7.27/67/119 on 30% FIO2. MEDICATIONS: Tylenol p.r.n., DuoNeb every 2 hours p.r.n., Norvasc, Eliquis, Lipitor, Pulmicort inhaled twice a day, Cardizem drip, D5 50 mL/hour, folic acid, hydralazine p.r.n. and twice a day standing dose, regular insulin sliding scale high protocol, Xopenex every 6 hours, meropenem, Solu-Medrol 40 mg IV every 12 hours, metoprolol 50 mg twice a day, Singulair, Cardene drip is off, Zofran p.r.n., Protonix daily, Lyrica. Chest x-ray showed bilateral increased interstitial markings. ASSESSMENT AND PLAN: This is a 73-year-old lady with hypercapnic respiratory failure secondary to chronic obstructive pulmonary disease exacerbation in the setting of right ventricular failure with pulmonary hypertension (right ventricular systolic pressure 55). However, PH may even be more severe as RV is dilated with decreased contractility, end diastolic left ventricular congestive heart failure. At present time, we will proceed with conservative fluid and oxygen management. Maintaining bilevel positive airway pressure. We will repeat ABG in a few hours. Low threshold for intubation. However, we will try to avoid it as it may potentially worsen right ventricular failure/systolic function (positive pressure ventilation may increase pulmonary artery pressure and increase right ventricular afterload). We will continue with bronchodilators, steroid taper and antibiotics at present time. We will continue with therapeutic anticoagulation, rate control. Cardiology Service on board and followup appreciated. We will continue with gastrointestinal prophylaxis. Addendum: discussed with Dr. Latif-->no cath as trop leak most likely secondary to acute on chronic kidney disease. discussed with renal service (no HD at present time). CXR improved vascular congestion. repeated ABG-->much improved ph and pc02-->patient is more alert and awake, oriented. will get off BPAP and repeat ABG to follow up. gi prophylaxis ccm time 40 min Vitaliy Santiago MD [facility]
[2018-10-28] MEDS: POLYETHYLENE GLYCOL 3350 17 GM/Dose PACKET PO SCH ×2 (09:03→18:47)
[2018-10-28] MEDS: MethylPREDNISolone 40 mg Vial IVP SCH ×2 (09:09→22:45)
[2018-10-28] MEDS: Vitamins A & D Oint UD Foilpak TOP SCH ×2 (09:18→18:50)
--- NOTE | 2018-10-28 09:25 | PN ---
DATE: 10/28/2018([id number]) PULMONARY NOTE SUBJECTIVE: The patient appears comfortable this morning. She is not short of breath at rest. PHYSICAL EXAMINATION: VITALS: Temperature is 98.3, pulse 60, respirations 16/18, blood pressure 180/73. Oxygen saturation on BiPAP is 98%. HEENT: Normocephalic, atraumatic. No JVD. CARDIOVASCULAR: Systolic ejection murmur at the lower left sternal border. Positive S3 gallop. LUNGS: Minimal crackles at the bases. Minimal rhonchi. No wheezing. EXTREMITIES: Minimal edema. No cyanosis. No clubbing. Calves are nontender to palpation. GASTROINTESTINAL: Abdomen is soft, nontender, and nondistended. Bowel sounds are positive. SKIN: No acute rash. NEUROLOGIC: Exam limited at the present time. PERTINENT LABORATORY DATA: Chest x-ray was done this morning and reviewed. Mild to moderate pulmonary vascular congestion remains. There is no significant infiltrate noted. Arterial blood gas was done on BiPAP. Results are: PH 7.27, pCO2 67, pO2 of 119. IMPRESSION: 1. Respiratory failure. 2. Acute congestive heart failure. 3. Advanced chronic obstructive pulmonary disease. 4. Right lower lobe pneumonia. 5. Rule out myocardial infarction. 6. Paroxysmal atrial fibrillation. 7. Renal insufficiency. PLAN: The patient appears comfortable this morning. She is not short of breath at rest. She is feeling better overall. I did discuss the case to night nurse at length. The night nurse stated that the patient had a good night, but does desaturate off of the BiPAP. I did review the chest x-ray from this morning. There is mild to moderate vascular congestion remaining. There are no significant infiltrates. I have also reviewed the arterial blood gas. There is now a respiratory acidosis with a mild increase in the alveolar-arterial gradient. BiPAP adjustments were made earlier this morning. I am awaiting a repeat arterial blood gas. On physical exam, there is no significant bronchospasm noted. I will continue the current nebulizer treatments and intravenous steroids for now. Inputs by Renal, Infectious Disease, and Cardiology are also noted. The patient remains on intravenous Lasix. The patient also remains on antibiotic therapy - as per Infectious Disease. Temperature has fully resolved. Clinical status of the patient is certainly improved - compared to last week. However, this patient remains very guarded overall. I did discuss the case with the daughter at length this morning. I will discuss the above with the entire ICU team in the next few moments. I will also discuss the above with the attending physician later this morning. Bhupinder Chiang MD [facility]
[2018-10-28] MEDS: Sildenafil 20 MG TAB PO SCH ×2 (09:34→18:48)
--- NOTE | 2018-10-28 09:43 | RAD ---
Date of service: 10/28/2018 HISTORY: Intubated COMPARISON: 10/27/2018 FINDINGS: Study is slightly limited due to partial obscuration of the medial lung apices by overlying facial soft tissue and mandible artifact. LUNGS: Mild persistent but improved pulmonary venous congestive changes. Small bilateral effusions are also felt present. PLEURA: As above. No pneumothorax apparent. CARDIOVASCULAR: Mild moderate aortic atherosclerotic calcification present. Cardiomegaly. Sternotomy wires and CABG clips. No change bipolar pacemaker/defibrillator. No pulmonary vascular congestion. OSSEOUS STRUCTURES: No significant abnormalities. VISUALIZED UPPER ABDOMEN: Normal. OTHER FINDINGS: None. IMPRESSION: Persistent mild but improved pulmonary venous congestive changes with suspected small bilateral effusions. Cardiomegaly.
[2018-10-28 09:58] LABS: ARTERIAL BLOOD GAS HCO3 31.1 mmol/L (21-28); ARTERIAL BLOOD GAS HEMOGLOBIN 9.8 g/dL (11.7-17.4); ARTERIAL BLOOD GAS O2 CAPACITY 13.5 mL/dl (16-24); ARTERIAL BLOOD GAS O2 CONTENT 13.4 ML/dl (15-23); ARTERIAL BLOOD GAS O2 SAT 99.6 % (95-98); ARTERIAL BLOOD GAS PCO2 59 mm/Hg (35-45); ARTERIAL BLOOD GAS PH 7.33 (7.35-7.45); ARTERIAL BLOOD GAS TCO2 32.9 mmol.L (22-28)
--- NOTE | 2018-10-28 15:04 | PN ---
DATE: 10/28/2018 REASON FOR THE CONSULTATION AND FOLLOWUP: Coronary artery disease, chronic obstructive pulmonary disease, history of percutaneous transluminal coronary angioplasty admitted due to shortness of breath status post permanent pacemaker, atrial fibrillation, worsening renal insufficiency, respiratory failure, pneumonia. SUBJECTIVE: The patient is awake and alert. on noninvasive ventilator status post extubated. Daughter is at the bedside. OBJECTIVE: . VITAL SIGNS: Temperature afebrile, heart rate 60, blood pressure 153/55. HEENT: PERRLA. Extraocular muscles intact. NECK: Supple. No carotid bruit or thyromegaly. CHEST: Clear to auscultation. HEART: S1 and S2 regular. ABDOMEN: Soft. EXTREMITIES: Clubbing, cyanosis negative. LABORATORY DATA: WBC 11.2, hemoglobin 9.5, hematocrit 33.5, platelet count 205. Chemistry showed sodium 151, potassium 4.7, chloride 111, carbon dioxide 31, anion gap of 13, BUN 105, creatinine 3.9. BNP elevated and maximum troponin 0.12. IMPRESSION: A 73-year-old female with past medical history significant for coronary artery disease status post percutaneous transluminal coronary angioplasty of [place] right coronary artery that occluded in 2014; history of permanent pacemaker admitted due to shortness of breath, worsening renal insufficiency; pneumonia; history of pulmonary hypertension; history of renal insufficiency; history of atrial fibrillation; hypernatremia. At one point, the patient was very hyperkalemic in acute kidney injury, creatinine was 3.5. RECOMMENDATION: Discussed with daughter who planned for cardiac catheterization because the patient's only minimal elevated troponin of indeterminate range. No evidence of ischemia in face of creatinine clearance probably not significant. We will continue IV fluid. Avoid nephrotoxic medication. Continue hydralazine. Continue 50 mg b.i.d. hydralazine p.r.n. Continue beta-benita. We will monitor closely. Further recommendation of the hospital course, we will follow with you. We will adjust the medication. Thank you Dr. Schultz for providing us the opportunity in taking care of the patient, Ki Vidales. Sapna Latif MD (Delete this signature block when dictator is a preceptor.) cc: MD Sly (Delete if not dictated.)
[2018-10-28 16:48] LABS: ARTERIAL BLOOD GAS HCO3 29.8 mmol/L (21-28); ARTERIAL BLOOD GAS HEMOGLOBIN 9.5 g/dL (11.7-17.4); ARTERIAL BLOOD GAS O2 CAPACITY 13.2 mL/dl (16-24); ARTERIAL BLOOD GAS O2 CONTENT 13.2 ML/dl (15-23); ARTERIAL BLOOD GAS O2 SAT 100.1 % (95-98); ARTERIAL BLOOD GAS PCO2 62 mm/Hg (35-45); ARTERIAL BLOOD GAS PH 7.29 (7.35-7.45); ARTERIAL BLOOD GAS TCO2 31.7 mmol.L (22-28)
--- NOTE | 2018-10-28 17:28 | PN ---
DATE: 10/28/2018 SUBJECTIVE: The patient is a 73-year-old seen and examined. She was extubated 2 days ago, still has shortness of breath, unable to speak full sentence. PHYSICAL EXAMINATION: VITAL SIGNS: She is afebrile. Pulse 84, respiration 20, blood pressure 126/61. LUNGS: Bilateral diffusely decreased breath sounds, occasional expiratory rhonchi. HEART: S1 and S2, audible. ABDOMEN: Soft, obese, and nontender. No rebound. No guarding. NEUROLOGIC: The patient is awake and alert and able to communicate. EXTREMITIES: Bilateral legs, no edema. LABORATORY DATA: WBC is 11.8, hemoglobin 9.5, hematocrit 33.5, and platelets 205. Chemistry; sodium 151, potassium 4.7, chloride 111, CO2 of 31, BUN 105, creatinine 3.9, and blood sugar of . Blood culture and urine cultures are negative. Urine has Pseudomonas aeruginosa. Head x-rays just done this morning shows improving pulmonary venous congestion with small bilateral effusion and cardiomegaly. ASSESSMENT: 1. Chronic obstructive pulmonary disease exacerbation. 2. Congestive heart failure. 3. Chronic atrial fibrillation,on Eliquis. 4. Hypertension. 5. Hyperlipidemia. 6. [id number] diabetes. 7. Chronic bilateral knee osteoarthritis. Currently the patient is on IV fluid. She is on Eliquis, blood sugar is being monitor. She is on meropenem. She is on MiraLax. She is on IV steroid. We will reevaluate in the a.m. Laurel Schultz MD
--- NOTE | 2018-10-28 21:58 | PN ---
DATE: 10/28/2018 SUBJECTIVE: The patient is seen in bed, in no acute distress. She is seen earlier this morning. She remains extubated, comfortable. OBJECTIVE: VITAL SIGNS: Temperature is 98, blood pressure is 176/60, respiratory rate 20, and heart rate of 62. HEENT: Unremarkable. NECK: Supple. LUNGS: Have decreased breath sounds. HEART: Normal S1 and S2. ABDOMEN: Soft. LABORATORY DATA: Reveals a white count of 11,800. Chemistries reveals a BUN of 105 and creatinine of 3.9. Urinalysis is noted and serology is reviewed. Blood cultures are noted.. Sputum cultures normal chastity. REVIEW OF ORDERS: Reveals the patient to be on meropenem. ASSESSMENT AND PLAN: This is a 73-year-old female who is with obesity with body mass index of 37, admitted to the intensive care unit hypertensive emergency, required intubation now, the patient is extubated, initially the patient had been treated for Pseudomonas urinary tract infection and pyelonephritis on Maxipime and now was completing healthcare-associated pneumonia and today is day #11 of therapy, would complete 14 days, which remains three more days of meropenem. We will follow with you. Juan Miguel Malone MD
[2018-10-29] MEDS: Levalbuterol 1.25 MG/3 ML Inhal Soln UD IH SCH ×4 (01:48→20:15)
[2018-10-29] MEDS: diltiaZEM IVPB 100mg in NS 100 ML IV PRN (01:58)
--- NOTE | 2018-10-29 02:55 | PN ---
DATE: 10/28/2018 SUBJECTIVE: The patient is seen lying in bed in the ICU. She is on BiPAP. She appears to be in [id number] respiratory distress. She was extubated two days ago. She is trying to say something but I am unable to understand. PHYSICAL EXAMINATION: GENERAL: Obese elderly lady lying in bed in the ICU. VITAL SIGNS: Blood pressure 170/100, heart rate 62, respiratory rate 24, T-max is 98.3. HEENT: Normocephalic, atraumatic, positive pallor, no icterus. NECK: Supple. No JVD. LUNGS: Bilateral rhonchi, scattered wheeze, prolonged expiration. CARDIAC: S1, S2, regular rate and rhythm, positive murmur, no rub. ABDOMEN: Obese, distended, soft, nontender, bowel sounds present. EXTREMITIES: No lower extremity edema, 1+ pitting edema of the upper extremities. INTAKE AND OUTPUT: 1520/1150. LABORATORY DATA: WBC 11.8, hemoglobin 9.5, hematocrit 34, platelets 205. Sodium 151, potassium 4.7, chloride 111, CO2 of 31, BUN 105, creatinine 3.9, glucose 251, albumin 4. Chest x-ray, persistent mild pulmonary venous congestion, small bilateral pleural effusions. CURRENT MEDICATIONS: Apresoline 50 mg b.i.d., Eliquis 2.5 mg b.i.d., folic acid 1 mg daily, Lipitor 40 mg, Lopressor 50 mg b.i.d., Lyrica 75 mg b.i.d. on hold, meropenem 250 mg every 12 hours, MiraLax 17 g b.i.d., amlodipine 10 mg, Protonix, Revatio 20 mg b.i.d., Solu-Medrol 40 mg IV every 12 hours, Tylenol, verapamil p.r.n. ASSESSMENT: 1. Acute kidney injury superimposed on chronic kidney disease stage IV, renal parameters worsening once again. The patient was admitted with creatinine of 2.1, creatinine gigi to 3, then the patient had renal recovery. Creatinine came down to 1.8, which is her baseline, kind of. Now steadily rising for the last 72 hours. 2. Hypernatremia, consistent with dehydration. 3. Hyperkalemia, resolved. 4. Hyperglycemia. 5. Leukocytosis, rising white blood cell count, secondary to steroid ? 6. Severe chronic obstructive pulmonary disease. 7. Severe pulmonary hypertension. 8. Coronary artery disease, history of coronary artery bypass graft. 9. Anemia of chronic kidney disease, ? acute component, ? gastrointestinal blood loss. PLAN: 1. Free water 250 mL every 6 hours. 2. Antibiotics as per ID recommendation, dose for creatinine clearance about 10 mL per minute. 3. Potassium is controlled. 4. Continue antibiotics as per ID recommendations. 5. Avoid nephrotoxins. 6. Monitor urine output. 7. Daily labs. 8. May have to consider renal replacement therapy. 9. Case discussed with ICU nursing staff, case discussed with Dr. Santiago at length. More than 35 minutes spent in the care of this critically ill patient. Doris Antunez MD
[2018-10-29] MEDS: Pantoprazole 40 mg EC Tab PO SCH (06:01)
[2018-10-29 06:05] LABS: ARTERIAL BLOOD GAS HCO3 28.6 mmol/L (21-28); ARTERIAL BLOOD GAS HEMOGLOBIN 9.9 g/dL (11.7-17.4); ARTERIAL BLOOD GAS O2 CAPACITY 13.6 mL/dl (16-24); ARTERIAL BLOOD GAS O2 CONTENT 13.6 ML/dl (15-23); ARTERIAL BLOOD GAS O2 SAT 99.9 % (95-98); ARTERIAL BLOOD GAS PCO2 53 mm/Hg (35-45); ARTERIAL BLOOD GAS PH 7.34 (7.35-7.45); ARTERIAL BLOOD GAS TCO2 30.2 mmol.L (22-28)
[2018-10-29 07:02] LABS: HEMOGLOBIN 10.2 g/dL (12.0-16.0); LYMPH # 0.4 (1.2-3.4); LYMPH % 4.3 % (22.0-35.0); MEAN CELL VOLUME 90.9 fl (80.0-105.0); MEAN CORPUSCULAR HEMOGLOBIN 26.5 pg (25.0-35.0); MEAN CORPUSCULAR HGB CONC 29.1 g/dl (31.0-37.0); MONO # 0.3 (0.1-0.6); MONO % 2.8 % (1.0-6.0); PLATELET COUNT 189 10^3/uL (120.0-450.0); RBC 3.85 10^6/uL (3.5-6.1); RED CELL DISTRIBUTION WIDTH 16.5 % (11.5-14.5); WHITE BLOOD COUNT 8.8 10^3/uL (4.5-11.0)
[2018-10-29] MEDS: Budesonide 0.5 mg/2 ml Inhal Susp UD IH SCH ×2 (07:16→20:15)
--- NOTE | 2018-10-29 07:32 | PN ---
DATE: 10/29/2018 PULMONARY NOTE SUBJECTIVE: The patient appears comfortable this morning. She is not short of breath at rest. She is much more awake and alert. She is conversive. PHYSICAL EXAMINATION: VITALS: Temperature is 97.7, pulse on the monitor is 105, respiratory rate 19, blood pressure 161/85. Oxygen saturation on nasal cannula is 98%. HEENT: Normocephalic, atraumatic. No JVD. CARDIOVASCULAR: Systolic ejection murmur at the lower left sternal border. Positive S3 gallop. LUNGS: Less crackles at the bases. Less rhonchi. No wheezing. EXTREMITIES: Minimal edema. No cyanosis. No clubbing. Calves are nontender to palpation. GASTROINTESTINAL: Abdomen is soft, nontender, nondistended. Bowel sounds are positive. SKIN: No acute rash. NEUROLOGIC: Exam limited at the present time. PERTINENT LABORATORY DATA: Chest x-ray was done this morning and reviewed. The chest x-ray continues to improve-- with decreased pulmonary vascular congestion. Arterial blood gas was done on nasal cannula/30% oxygen. Results are: PH 7.34, pCO2 of 53, pO2 of 116. IMPRESSION: 1. Respiratory failure. 2. Acute congestive heart failure. 3. Advanced chronic obstructive pulmonary disease. 4. Right lower lobe pneumonia. 5. Rule out myocardial infarction. 6. Paroxysmal atrial fibrillation. 7. Renal insufficiency. PLAN: The patient appears very comfortable this morning. She is not short of breath at rest. She is much more awake and alert. She is conversive this morning. I did discuss the case with the night nurse at length. The night nurse stated that the patient had a very good night. I did review the chest x-ray from this morning. The chest x-ray is certainly improved with decreased pulmonary vascular congestion. I have also reviewed the arterial blood gas. The arterial blood gas is significantly improved-- with almost complete resolution of the acidosis, and a significant decrease in the alveolar-arterial gradient. We will continue her on nasal cannula this morning and change to BiPAP as needed. On physical exam, there is certainly less bronchospasm noted. I will continue the current nebulizer treatments and low-dose intravenous steroids for now. Inputs by Cardiology and Renal are also noted. Clinical status of the patient is significantly improved - compared to last week. However, given the above, the future status/prognosis for this patient does remain guarded. I will discuss the above with the entire ICU team in the next few moments. I will discuss the above with the attending physician later this morning. Bhupinder Chiang MD [facility]
[2018-10-29 08:13] LABS: ALB/GLOB RATIO 1.1 (1.1-1.8); ALBUMIN 3.8 g/dL (3.0-4.8); CALCIUM 9.6 mg/dL (8.4-10.5)
[2018-10-29] MEDS: Insulin Reg-HIGH-Coverage SC SCH ×2 (08:39→13:14)
--- NOTE | 2018-10-29 09:28 | RAD ---
Date of service: 10/29/2018 HISTORY: f/u COMPARISON: 10/28/2018 FINDINGS: LUNGS: The lungs are well inflated. There is interval mild improved aeration in the lungs with improvement in pulmonary venous congestion and interstitial pulmonary edema. PLEURA: No pleural effusions or pneumothorax. CARDIOVASCULAR: Persistent severe cardiomegaly. Status post CABG. There are aortic atherosclerotic calcifications present. There is stable position of left-sided permanent pacing device. OSSEOUS STRUCTURES: Within normal limits for the patient's age. VISUALIZED UPPER ABDOMEN: Normal. OTHER FINDINGS: None. IMPRESSION: Interval mild improvement in pulmonary venous congestion. No other significant interval change.
--- NOTE | 2018-10-29 09:32 | CP.CCUPN ---
<JacobBartolome - Last Filed: 10/29/18 15:11> CCU Subjective - Physician Review Subjective (Free Text): Bartolome James DO. Critical Care Progress note Patient seen and examined at bedside. She was somnolent overnight. Put on CPAP overnight which was discontinued this am. She reports no SOB, CP CCU Objective - Vital Signs / Intake & Output Vital Signs (Last 4 hours): Vital Signs Pulse Resp BP Pulse Ox 10/29/18 06:00 122 H 19 161/85 H 98 10/29/18 05:50 121 H 23 94 L 10/29/18 05:40 98 Intake and Output (Last 8hrs): Intake & Output 10/28/18 10/29/18 10/29/18 22:59 06:59 14:59 Intake Total 920 2159 Output Total 400 600 Balance 520 1559 Intake: IV 700 1939 Right Hand 700 1912 Oral 220 220 Output: Urine 400 600 Urethral ([place]) 400 600 Stool 0 Urine/Stool Mix 0 Emesis 0 Oral Regurgitation 0 Other 0 Other: # Bowel Movements 0 - Physical Exam Head: Positive for: Atraumatic, Normocephalic Pupils: Positive for: PERRL Extroacular Muscles: Positive for: EOMI Conjunctiva: Positive for: Normal Mouth: Positive for: Moist Mucous Membranes Neck: Negative for: JVD Respiratory/Chest: Positive for: Clear to Auscultation, Good Air Exchange (fair air exchange bilaterally), Wheezes, Other (intubated). Negative for: Respiratory Distress, Rhonchi Cardiovascular: Positive for: Normal S1, S2, Irregular Rhythm, Tachycardic (tachycardic but normal rhythm) Abdomen: Positive for: Hernias (reducible umbilical hernia). Negative for: Dist ention, Peritoneal Signs Upper Extremity: Positive for: Normal Inspection, Cyanosis, NORMAL PULSES Lower Extremity: Positive for: Edema (trace edema to bilateral lower extremities), NORMAL PULSES. Negative for: CALF TENDERNESS, Cyanosis Neurological: Positive for: GCS=15, CN II-XII Intact, Speech Normal Skin: Positive for: Warm, Dry, Normal Color. Negative for: Rashes Psychiatric: Positive for: Alert, Oriented x 3 - Medications Active Medications: Active Medications Generic Name Dose Route Start Last Admin Trade Name Freq PRN Reason Stop Dose Admin Acetaminophen 650 mg 10/18/18 19:35 10/21/18 16:47 Tylenol 325mg Tab PO 650 mg Q6H PRN Administration Fever >100.4 F Albuterol/Ipratropium 3 ml 10/18/18 19:35 10/19/18 10:38 Duoneb 3 Mg/0.5 Mg (3 Ml) Ud IH 3 ml Q2H PRN Administration Shortness of Breath Amlodipine Besylate 10 mg 10/23/18 12:15 10/28/18 11:19 Norvasc PO 10 mg DAILY LINDA Administration Apixaban 2.5 mg 10/18/18 19:30 10/28/18 18:00 Eliquis PO Not Given BID [facility] Protocol Atorvastatin Calcium 40 mg 10/19/18 10:00 10/28/18 09:03 Lipitor PO Not Given DAILY [facility] Budesonide 0.5 mg 10/22/18 08:00 10/29/18 07:16 Pulmicort Respules IH 0.5 mg [id number] LINDA Administration Folic Acid 1 mg 10/19/18 10:00 10/28/18 09:34 Folic Acid PO Not Given DAILY [facility] Hydralazine HCl 50 mg 10/22/18 18:00 10/28/18 18:00 Apresoline PO Not Given BID LINDA Hydralazine HCl 10 mg 10/23/18 17:33 10/28/18 15:50 Apresoline IVP 10 mg Q4 PRN Administration SBP > 180 Nicardipine HCl 20 mg in 200 mls @ 50 mls/hr 10/23/18 12:16 10/24/18 07:15 Cardene Iv Premix IV 0 mg/hr .Q4H PRN 0 mls/hr TITRATE PER MD ORDER Titration Protocol 5 MG/HR Propofol 1,000 mg in 100 mls @ 2.879 mls/hr 10/23/18 13:33 10/25/18 06:53 Diprivan IV 0 mcg/kg/min .Q24H PRN 0 mls/hr TITRATE PER MD ORDER Titration Protocol 5 MCG/KG/MIN Midazolam 100 mg/100ml in NS 100 mg in 100 mls @ 1 mls/hr 10/23/18 14:09 10/25/18 06:53 Midazolam 100 Mg/100ml In Ns IV 0 mg/hr .Q24H PRN 0 mls/hr Sedation Titration Protocol 1 MG/HR Meropenem 250 mg/ Sodium 100 mls @ 100 mls/hr 10/24/18 10:15 10/28/18 22:44 Chloride IVPB 10/31/18 10:16 100 mls/hr Q12H LINDA Administration Protocol diltiaZEM IVPB 100mg in NS 100 mls @ 5 mls/hr 10/26/18 07:55 10/29/18 01:58 Cardizem 100mg In Ns IV 2.5 mg/hr .Q20H PRN 2.5 mls/hr TITRATE PER MD ORDER Administration Protocol 5 MG/HR Dextrose 1,000 mls @ 50 mls/hr 10/27/18 08:08 10/29/18 00:00 Dextrose 5% In Water 1000 Ml IV 50 mls/hr .Q20H LINDA Administration Insulin Human Regular 0 units 10/27/18 22:00 10/29/18 08:39 Humulin R High SC 12 units ACHS LINDA Administration Protocol Levalbuterol HCl 1.25 mg 10/18/18 20:00 10/29/18 07:16 Xopenex IH 1.25 mg [id number] LINDA Administration Methylprednisolone 40 mg 10/24/18 10:00 10/28/18 22:45 Solu-Medrol IVP 40 mg Q12 LINDA Administration Metoprolol Tartrate 50 mg 10/18/18 19:30 10/28/18 13:47 Lopressor PO 50 mg BID LINDA Administration Montelukast Sodium 10 mg 10/18/18 22:00 10/28/18 22:46 Singulair PO 10 mg HS LINDA Administration Ondansetron HCl 4 mg 10/18/18 19:35 10/19/18 07:55 Zofran Inj IVP 4 mg Q6H PRN Administration Nausea/Vomiting Pantoprazole Sodium 40 mg 10/29/18 06:00 10/29/18 06:01 Protonix Ec Tab PO 40 mg 0600 LINDA Administration Polyethylene Glycol 17 gm 10/25/18 18:00 10/28/18 18:47 Miralax PO Not Given BID LINDA Pregabalin 75 mg 10/18/18 19:30 10/24/18 09:45 Lyrica PO 75 mg BID LINDA Administration Sildenafil Citrate 20 mg 10/19/18 10:00 10/28/18 18:48 Revatio PO Not Given BID LINDA Verapamil HCl 2.5 mg 10/24/18 12:34 10/26/18 02:12 Verapamil Inj IVP 2.5 mg Q6H PRN Administration for Heart rate >120 Vitamin A 1 ea 10/26/18 10:00 10/28/18 18:50 Vitamin A & D Oint Ud Foilpak TOP 1 ea BID LINDA Administration - Patient Studies Lab Studies: Microbiology Studies 10/23/18 14:00 Blood Culture - Final Blood NO GROWTH AFTER 5 DAYS Gram Stain - Final TEST NOT PERFORMED 10/25/18 23:01 Gram Stain - Final Sputum Sputum Culture - Final NORMAL ORAL JAYLEN Lab Studies 10/29/18 10/29/18 10/29/18 Range/Units 07:09 05:45 05:35 WBC (4.5-11.0) 10^3/uL RBC (3.5-6.1) 10^6/uL Hgb (12.0-16.0) g/dL Hct (36.0-48.0) % MCV (80.0-105.0) fl MCH (25.0-35.0) pg MCHC (31.0-37.0) g/dl RDW (11.5-14.5) % Plt Count (120.0-450.0) 10^3/uL Neut % (Auto) (50.0-68.0) % Lymph % (Auto) (22.0-35.0) % [place] % (Auto) (1.0-6.0) % Eos % (Auto) (1.5-5.0) % Baso % (Auto) (0.0-3.0) % Lymph # (Auto) (1.2-3.4) [place] # (Auto) (0.1-0.6) Eos # (Auto) (0.0-0.7) Baso # (Auto) (0.0-2.0) K/mm3 Absolute Neuts (auto) (1.4-6.5) pCO2 53 H (35-45) mm/Hg pO2 116.0 H (80-100) mm/Hg HCO3 28.6 H (21-28) mmol/L ABG pH 7.34 L (7.35-7.45) ABG Total CO2 30.2 H (22-28) mmol.L ABG O2 Saturation 99.9 H (95-98) % ABG O2 Content 13.6 L (15-23) ML/dl ABG Base Excess 2.1 (-2.0-3.0) mmol/L ABG Hemoglobin 9.9 L (11.7-17.4) g/dL ABG Carboxyhemoglobin 2.6 H (0.5-1.5) % POC ABG HHb (Measured) 0.1 (0-5) % ABG Methemoglobin 1.0 (0.0-3.0) % ABG O2 Capacity 13.6 L (16-24) mL/dl Hgb O2 Saturation 96.3 (95.0-98.0) % FiO2 30.0 % Crit Value Called To Crit Value Called By Blood Gas Notified Time Sodium 148 (132-148) mmol/L Potassium 4.8 (3.6-5.0) mmol/L Chloride 110 H (98-107) mmol/L Carbon Dioxide 29 (21-33) mmol/L Anion Gap 14 (10-20) BUN 112 H (7-21) mg/dL Creatinine 3.2 H (0.7-1.2) mg/dl Est GFR ( Amer) 17 Est GFR (Non-Af Amer) 14 POC Glucose (mg/dL) 355 H (65-110) mg/dL Random Glucose 366 H* D (70-110) mg/dL Calcium 9.6 (8.4-10.5) mg/dL Total Bilirubin 0.5 (0.2-1.3) mg/dL AST 20 (14-36) U/L ALT 16 (7-56) U/L Alkaline Phosphatase 70 (38-126) U/L Total Protein 7.2 (5.8-8.3) g/dL Albumin 3.8 (3.0-4.8) g/dL Globulin 3.4 gm/dL Albumin/Globulin Ratio 1.1 (1.1-1.8) U Random Total Protein (21-161) mg/g creat Urine Creatinine (20-275) mg/dL Urine Microalbumin mg/dL Microalb/Creat Ratio (<30) 10/29/18 10/28/18 10/28/18 Range/Units 05:35 21:33 17:20 WBC 8.8 D (4.5-11.0) 10^3/uL RBC 3.85 (3.5-6.1) 10^6/uL Hgb 10.2 L (12.0-16.0) g/dL Hct 35.0 L (36.0-48.0) % MCV 90.9 (80.0-105.0) fl MCH 26.5 (25.0-35.0) pg MCHC 29.1 L (31.0-37.0) g/dl RDW 16.5 H (11.5-14.5) % Plt Count 189 (120.0-450.0) 10^3/uL Neut % (Auto) 92.9 H (50.0-68.0) % Lymph % (Auto) 4.3 L (22.0-35.0) % [place] % (Auto) 2.8 (1.0-6.0) % Eos % (Auto) 0.0 L (1.5-5.0) % Baso % (Auto) 0.0 (0.0-3.0) % Lymph # (Auto) 0.4 L (1.2-3.4) [place] # (Auto) 0.3 (0.1-0.6) Eos # (Auto) 0.0 (0.0-0.7) Baso # (Auto) 0.00 (0.0-2.0) K/mm3 Absolute Neuts (auto) 8.18 H (1.4-6.5) pCO2 (35-45) mm/Hg pO2 (80-100) mm/Hg HCO3 (21-28) mmol/L ABG pH (7.35-7.45) ABG Total CO2 (22-28) mmol.L ABG O2 Saturation (95-98) % ABG O2 Content (15-23) ML/dl ABG Base Excess (-2.0-3.0) mmol/L ABG Hemoglobin (11.7-17.4) g/dL ABG Carboxyhemoglobin (0.5-1.5) % POC ABG HHb (Measured) (0-5) % ABG Methemoglobin (0.0-3.0) % ABG O2 Capacity (16-24) mL/dl Hgb O2 Saturation (95.0-98.0) % FiO2 % Crit Value Called To Crit Value Called By Blood Gas Notified Time Sodium (132-148) mmol/L Potassium (3.6-5.0) mmol/L Chloride (98-107) mmol/L Carbon Dioxide (21-33) mmol/L Anion Gap (10-20) BUN (7-21) mg/dL Creatinine (0.7-1.2) mg/dl Est GFR ( Amer) Est GFR (Non-Af Amer) POC Glucose (mg/dL) 293 H 328 H (65-110) mg/dL Random Glucose (70-110) mg/dL Calcium (8.4-10.5) mg/dL Total Bilirubin (0.2-1.3) mg/dL AST (14-36) U/L ALT (7-56) U/L Alkaline Phosphatase (38-126) U/L Total Protein (5.8-8.3) g/dL Albumin (3.0-4.8) g/dL Globulin gm/dL Albumin/Globulin Ratio (1.1-1.8) U Random Total Protein (21-161) mg/g creat Urine Creatinine (20-275) mg/dL Urine Microalbumin mg/dL Microalb/Creat Ratio (<30) 10/28/18 10/28/18 10/28/18 Range/Units 16:43 11:06 09:50 WBC (4.5-11.0) 10^3/uL RBC (3.5-6.1) 10^6/uL Hgb (12.0-16.0) g/dL Hct (36.0-48.0) % MCV (80.0-105.0) fl MCH (25.0-35.0) pg MCHC (31.0-37.0) g/dl RDW (11.5-14.5) % Plt Count (120.0-450.0) 10^3/uL Neut % (Auto) (50.0-68.0) % Lymph % (Auto) (22.0-35.0) % [place] % (Auto) (1.0-6.0) % Eos % (Auto) (1.5-5.0) % Baso % (Auto) (0.0-3.0) % Lymph # (Auto) (1.2-3.4) [place] # (Auto) (0.1-0.6) Eos # (Auto) (0.0-0.7) Baso # (Auto) (0.0-2.0) K/mm3 Absolute Neuts (auto) (1.4-6.5) pCO2 62 H 59 H (35-45) mm/Hg pO2 158.0 H 97.0 (80-100) mm/Hg HCO3 29.8 H 31.1 H (21-28) mmol/L ABG pH 7.29 L 7.33 L (7.35-7.45) ABG Total CO2 31.7 H 32.9 H (22-28) mmol.L ABG O2 Saturation 100.1 H 99.6 H (95-98) % ABG O2 Content 13.2 L 13.4 L (15-23) ML/dl ABG Base Excess 2.3 4.1 H (-2.0-3.0) mmol/L ABG Hemoglobin 9.5 L 9.8 L (11.7-17.4) g/dL ABG Carboxyhemoglobin 2.4 H 2.6 H (0.5-1.5) % POC ABG HHb (Measured) -0.1 L 0.4 (0-5) % ABG Methemoglobin 1.1 1.2 (0.0-3.0) % ABG O2 Capacity 13.2 L 13.5 L (16-24) mL/dl Hgb O2 Saturation 96.5 95.8 (95.0-98.0) % FiO2 21.0 30.0 % Crit Value Called To Mercedes cobos Crit Value Called By [facility] Blood Gas Notified Time 1646 Sodium (132-148) mmol/L Potassium (3.6-5.0) mmol/L Chloride (98-107) mmol/L Carbon Dioxide (21-33) mmol/L Anion Gap (10-20) BUN (7-21) mg/dL Creatinine (0.7-1.2) mg/dl Est GFR ( Amer) Est GFR (Non-Af Amer) POC Glucose (mg/dL) 260 H (65-110) mg/dL Random Glucose (70-110) mg/dL Calcium (8.4-10.5) mg/dL Total Bilirubin (0.2-1.3) mg/dL AST (14-36) U/L ALT (7-56) U/L Alkaline Phosphatase (38-126) U/L Total Protein (5.8-8.3) g/dL Albumin (3.0-4.8) g/dL Globulin gm/dL Albumin/Globulin Ratio (1.1-1.8) U Random Total Protein (21-161) mg/g creat Urine Creatinine (20-275) mg/dL Urine Microalbumin mg/dL Microalb/Creat Ratio (<30) 10/27/18 10/27/18 Range/Units 15:45 15:45 WBC (4.5-11.0) 10^3/uL RBC (3.5-6.1) 10^6/uL Hgb (12.0-16.0) g/dL Hct (36.0-48.0) % MCV (80.0-105.0) fl MCH (25.0-35.0) pg MCHC (31.0-37.0) g/dl RDW (11.5-14.5) % Plt Count (120.0-450.0) 10^3/uL Neut % (Auto) (50.0-68.0) % Lymph % (Auto) (22.0-35.0) % [place] % (Auto) (1.0-6.0) % Eos % (Auto) (1.5-5.0) % Baso % (Auto) (0.0-3.0) % Lymph # (Auto) (1.2-3.4) [place] # (Auto) (0.1-0.6) Eos # (Auto) (0.0-0.7) Baso # (Auto) (0.0-2.0) K/mm3 Absolute Neuts (auto) (1.4-6.5) pCO2 (35-45) mm/Hg pO2 (80-100) mm/Hg HCO3 (21-28) mmol/L ABG pH (7.35-7.45) ABG Total CO2 (22-28) mmol.L ABG O2 Saturation (95-98) % ABG O2 Content (15-23) ML/dl ABG Base Excess (-2.0-3.0) mmol/L ABG Hemoglobin (11.7-17.4) g/dL ABG Carboxyhemoglobin (0.5-1.5) % POC ABG HHb (Measured) (0-5) % ABG Methemoglobin (0.0-3.0) % ABG O2 Capacity (16-24) mL/dl Hgb O2 Saturation (95.0-98.0) % FiO2 % Crit Value Called To Crit Value Called By Blood Gas Notified Time Sodium (132-148) mmol/L Potassium (3.6-5.0) mmol/L Chloride (98-107) mmol/L Carbon Dioxide (21-33) mmol/L Anion Gap (10-20) BUN (7-21) mg/dL Creatinine (0.7-1.2) mg/dl Est GFR ( Amer) Est GFR (Non-Af Amer) POC Glucose (mg/dL) (65-110) mg/dL Random Glucose (70-110) mg/dL Calcium (8.4-10.5) mg/dL Total Bilirubin (0.2-1.3) mg/dL AST (14-36) U/L ALT (7-56) U/L Alkaline Phosphatase (38-126) U/L Total Protein (5.8-8.3) g/dL Albumin (3.0-4.8) g/dL Globulin gm/dL Albumin/Globulin Ratio (1.1-1.8) U Random Total Protein 2247 H (21-161) mg/g creat Urine Creatinine 89 (20-275) mg/dL Urine Microalbumin 43.9 mg/dL Microalb/Creat Ratio 493 H (<30) Laboratory Results - last 24 hr 10/27/18 10/27/18 10/28/18 15:45 15:45 09:50 WBC RBC Hgb Hct MCV MCH MCHC RDW Plt Count Neut % (Auto) Lymph % (Auto) [place] % (Auto) Eos % (Auto) Baso % (Auto) Lymph # (Auto) [place] # (Auto) Eos # (Auto) Baso # (Auto) Absolute Neuts (auto) pCO2 59 H pO2 97.0 HCO3 31.1 H ABG pH 7.33 L ABG Total CO2 32.9 H ABG O2 Saturation 99.6 H ABG O2 Content 13.4 L ABG Base Excess 4.1 H ABG Hemoglobin 9.8 L ABG Carboxyhemoglobin 2.6 H POC ABG HHb (Measured) 0.4 ABG Methemoglobin 1.2 ABG O2 Capacity 13.5 L Hgb O2 Saturation 95.8 FiO2 30.0 Crit Value Called To Crit Value Called By Blood Gas Notified Time Sodium Potassium Chloride Carbon Dioxide Anion Gap BUN Creatinine Est GFR ( Amer) Est GFR (Non-Af Amer) POC Glucose (mg/dL) Random Glucose Calcium Total Bilirubin AST ALT Alkaline Phosphatase Total Protein Albumin Globulin Albumin/Globulin Ratio U Random Total Protein 2247 H Urine Creatinine 89 Urine Microalbumin 43.9 Microalb/Creat Ratio 493 H 10/28/18 10/28/18 10/28/18 11:06 16:43 17:20 WBC RBC Hgb Hct MCV MCH MCHC RDW Plt Count Neut % (Auto) Lymph % (Auto) [place] % (Auto) Eos % (Auto) Baso % (Auto) Lymph # (Auto) [place] # (Auto) Eos # (Auto) Baso # (Auto) Absolute Neuts (auto) pCO2 62 H pO2 158.0 H HCO3 29.8 H ABG pH 7.29 L ABG Total CO2 31.7 H ABG O2 Saturation 100.1 H ABG O2 Content 13.2 L ABG Base Excess 2.3 ABG Hemoglobin 9.5 L ABG Carboxyhemoglobin 2.4 H POC ABG HHb (Measured) -0.1 L ABG Methemoglobin 1.1 ABG O2 Capacity 13.2 L Hgb O2 Saturation 96.5 FiO2 21.0 Crit Value Called To Mercedes cobos Crit Value Called By [facility] Blood Gas Notified Time 1646 Sodium Potassium Chloride Carbon Dioxide Anion Gap BUN Creatinine Est GFR ( Amer) Est GFR (Non-Af Amer) POC Glucose (mg/dL) 260 H 328 H Random Glucose Calcium Total Bilirubin AST ALT Alkaline Phosphatase Total Protein Albumin Globulin Albumin/Globulin Ratio U Random Total Protein Urine Creatinine Urine Microalbumin Microalb/Creat Ratio 10/28/18 10/29/18 10/29/18 21:33 05:35 05:35 WBC 8.8 D RBC 3.85 Hgb 10.2 L Hct 35.0 L MCV 90.9 MCH 26.5 MCHC 29.1 L RDW 16.5 H Plt Count 189 Neut % (Auto) 92.9 H Lymph % (Auto) 4.3 L [place] % (Auto) 2.8 Eos % (Auto) 0.0 L Baso % (Auto) 0.0 Lymph # (Auto) 0.4 L [place] # (Auto) 0.3 Eos # (Auto) 0.0 Baso # (Auto) 0.00 Absolute Neuts (auto) 8.18 H pCO2 pO2 HCO3 ABG pH ABG Total CO2 ABG O2 Saturation ABG O2 Content ABG Base Excess ABG Hemoglobin ABG Carboxyhemoglobin POC ABG HHb (Measured) ABG Methemoglobin ABG O2 Capacity Hgb O2 Saturation FiO2 Crit Value Called To Crit Value Called By Blood Gas Notified Time Sodium 148 Potassium 4.8 Chloride 110 H Carbon Dioxide 29 Anion Gap 14 BUN 112 H Creatinine 3.2 H Est GFR ( Amer) 17 Est GFR (Non-Af Amer) 14 POC Glucose (mg/dL) 293 H Random Glucose 366 H* D Calcium 9.6 Total Bilirubin 0.5 AST 20 ALT 16 Alkaline Phosphatase 70 Total Protein 7.2 Albumin 3.8 Globulin 3.4 Albumin/Globulin Ratio 1.1 U Random Total Protein Urine Creatinine Urine Microalbumin Microalb/Creat Ratio 10/29/18 10/29/18 05:45 07:09 WBC RBC Hgb Hct MCV MCH MCHC RDW Plt Count Neut % (Auto) Lymph % (Auto) [place] % (Auto) Eos % (Auto) Baso % (Auto) Lymph # (Auto) [place] # (Auto) Eos # (Auto) Baso # (Auto) Absolute Neuts (auto) pCO2 53 H pO2 116.0 H HCO3 28.6 H ABG pH 7.34 L ABG Total CO2 30.2 H ABG O2 Saturation 99.9 H ABG O2 Content 13.6 L ABG Base Excess 2.1 ABG Hemoglobin 9.9 L ABG Carboxyhemoglobin 2.6 H POC ABG HHb (Measured) 0.1 ABG Methemoglobin 1.0 ABG O2 Capacity 13.6 L Hgb O2 Saturation 96.3 FiO2 30.0 Crit Value Called To Crit Value Called By Blood Gas Notified Time Sodium Potassium Chloride Carbon Dioxide Anion Gap BUN Creatinine Est GFR ( Amer) Est GFR (Non-Af Amer) POC Glucose (mg/dL) 355 H Random Glucose Calcium Total Bilirubin AST ALT Alkaline Phosphatase Total Protein Albumin Globulin Albumin/Globulin Ratio U Random Total Protein Urine Creatinine Urine Microalbumin Microalb/Creat Ratio Radiology Impressions: Radiology Impressions Chest X-Ray 10/28/18 06:00 IMPRESSION: Persistent mild but improved pulmonary venous congestive changes with suspected small bilateral effusions. Cardiomegaly. Chest X-Ray 10/29/18 06:00 IMPRESSION: Interval mild improvement in pulmonary venous congestion. No other significant interval change. Fingerstick Blood Sugar Results: 355 Review of Systems - Constitutional Constitutional: absent: Fever, Chills, Weakness - Cardiovascular Cardiovascular: Rapid Heart Rate. absent: Chest Pain, Claudication - Respiratory Respiratory: absent: Cough, Dyspnea - Gastrointestinal Gastrointestinal: absent: Abdominal Pain, Bloating - Genitourinary Genitourinary: absent: Difficulty Urinating, Dysuria - Musculoskeletal Musculoskeletal: absent: Muscle Weakness, Numbness - Integumentary Integumentary: Changing Lesions - Neurological Neurological: absent: Dizziness, Numbness, Headaches Critical Care Progress Note - Nutrition Nutrition: Nutrition Category Date Time Status Pureed [Dysphagia/Modified Consistency Diet] [DIET] Diets 10/28/18 Lunch Ordered Assessment/Plan - Assessment and Plan (Free Text) Assessment: 73 y/o female admitted to ICU for hypertensive emergency complicated by ventilator dependent hypercapnic respiratory failure in the setting of pulmonary HTN and chronic COPD Plan: Neuro: -AAOX3 -resolved AMS -maintain normthermia Cardio: -resolved hyertensive emergency -continue home amlodipine, metoprolol -continue verapamil for HR >110 -hold diuretics for diastolic dysfunction -pacemaker interrogation recently done for paroxysmal Afib -continue eliquis 2.5 mg bid Pulm: -chronic COPD and pulmonary HTN -AB.34/53/116/29 improving -clinically improving -CXR this am improving -BiPAP as needed -consevative fluid and oxygen management -continue meropenem for RLL pneumonia -continue budesonide, xopenex, montelukast for COPD GI: -CT Abd/Pelvis reveals perinephric changes L>R. Potential pyelonephritis -GI following /renal: -UCx: pseudomonas UTI -afebrile, no leukocytosis -continue meropenem Renal: -LEIGHA due to cardiorenal syndrome -hold diuretics/nehrotoxic drugs Endo: -IDDM -accucheck -BG [phone] -switch ISS to insulin drip -solu medrol tappered to 30 mg q12 Prophylaxis: PPI SCD Diet advanced to pureed Continue ICU management Case reviewed and discussed with attending Dr Santiago <Vitaliy Santiago - Last Filed: 10/29/18 16:23> CCU Objective - Vital Signs / Intake & Output Vital Signs (Last 4 hours): Vital Signs Pulse BP 10/29/18 13:13 95 H 138/60 10/29/18 13:11 95 H 138/60 Intake and Output (Last 8hrs): Intake & Output 10/29/18 10/29/18 10/29/18 06:59 14:59 22:59 Intake Total 2159 Output Total 600 Balance 1559 Intake: IV 1939 Right Hand 1912 Oral 220 Output: Urine 600 Urethral ([place]) 600 Stool 0 Urine/Stool Mix 0 Emesis 0 Oral Regurgitation 0 Other 0 Other: # Bowel Movements 0 - Medications Active Medications: Active Medications Generic Name Dose Route Start Last Admin Trade Name Freq PRN Reason Stop Dose Admin Acetaminophen 650 mg 10/18/18 19:35 10/21/18 16:47 Tylenol 325mg Tab PO 650 mg Q6H PRN Administration Fever >100.4 F Albuterol/Ipratropium 3 ml 10/18/18 19:35 10/19/18 10:38 Duoneb 3 Mg/0.5 Mg (3 Ml) Ud IH 3 ml Q2H PRN Administration Shortness of Breath Amiodarone HCl 200 mg 10/31/18 10:00 Cordarone PO DAILY LINDA Amiodarone HCl 400 mg 10/29/18 14:00 Cordarone PO 10/30/18 23:59 TID LINDA Apixaban 2.5 mg 10/18/18 19:30 10/29/18 10:27 Eliquis PO 2.5 mg BID LINDA Administration Protocol Atorvastatin Calcium 40 mg 10/19/18 10:00 10/29/18 10:29 Lipitor PO 40 mg DAILY LINDA Administration Budesonide 0.5 mg 10/22/18 08:00 10/29/18 07:16 Pulmicort Respules IH 0.5 mg [id number] LINDA Administration Folic Acid 1 mg 10/19/18 10:00 10/29/18 10:28 Folic Acid PO 1 mg DAILY LINDA Administration Hydralazine HCl 50 mg 10/22/18 18:00 10/29/18 10:25 Apresoline PO 50 mg BID LINDA Administration Hydralazine HCl 10 mg 10/23/18 17:33 10/28/18 15:50 Apresoline IVP 10 mg Q4 PRN Administration SBP > 180 Nicardipine HCl 20 mg in 200 mls @ 50 mls/hr 10/23/18 12:16 10/24/18 07:15 Cardene Iv Premix IV 0 mg/hr .Q4H PRN 0 mls/hr TITRATE PER MD ORDER Titration Protocol 5 MG/HR Midazolam 100 mg/100ml in NS 100 mg in 100 mls @ 1 mls/hr 10/23/18 14:09 10/25/18 06:53 Midazolam 100 Mg/100ml In Ns IV 0 mg/hr .Q24H PRN 0 mls/hr Sedation Titration Protocol 1 MG/HR Meropenem 250 mg/ Sodium 100 mls @ 100 mls/hr 10/24/18 10:15 10/29/18 10:31 Chloride IVPB 10/31/18 10:16 100 mls/hr Q12H LINDA Administration Protocol Insulin Human Regular 0 units 10/27/18 22:00 10/29/18 13:14 Humulin R High SC 12 units ACHS LINDA Administration Protocol Levalbuterol HCl 1.25 mg 10/18/18 20:00 10/29/18 13:23 Xopenex IH 1.25 mg [id number] LINDA Administration Methylprednisolone 30 mg 10/29/18 22:00 Solu-Medrol IVP Q12 LINDA Metoprolol Tartrate 50 mg 10/18/18 19:30 10/29/18 10:30 Lopressor PO 50 mg BID LINDA Administration Montelukast Sodium 10 mg 10/18/18 22:00 10/28/18 22:46 Singulair PO 10 mg HS LINDA Administration Ondansetron HCl 4 mg 10/18/18 19:35 10/19/18 07:55 Zofran Inj IVP 4 mg Q6H PRN Administration Nausea/Vomiting Pantoprazole Sodium 40 mg 10/29/18 06:00 10/29/18 06:01 Protonix Ec Tab PO 40 mg 0600 LINDA Administration Polyethylene Glycol 17 gm 10/25/18 18:00 10/29/18 10:34 Miralax PO 17 gm BID LINDA Administration Pregabalin 75 mg 10/18/18 19:30 10/24/18 09:45 Lyrica PO 75 mg BID LINDA Administration Sildenafil Citrate 20 mg 10/19/18 10:00 10/29/18 10:38 Revatio PO 20 mg BID LINDA Administration Verapamil HCl 2.5 mg 10/24/18 12:34 10/26/18 02:12 Verapamil Inj IVP 2.5 mg Q6H PRN Administration for Heart rate >120 Verapamil HCl 80 mg 10/29/18 14:00 Calan Tab PO TID LINDA Vitamin A 1 ea 10/26/18 10:00 10/29/18 10:40 Vitamin A & D Oint Ud Foilpak TOP 1 ea BID LINDA Administration - Patient Studies Lab Studies: Microbiology Studies 10/23/18 14:00 Blood Culture - Final Blood NO GROWTH AFTER 5 DAYS Gram Stain - Final TEST NOT PERFORMED Lab Studies 10/29/18 10/29/18 10/29/18 Range/Units 07:09 05:45 05:35 WBC (4.5-11.0) 10^3/uL RBC (3.5-6.1) 10^6/uL Hgb (12.0-16.0) g/dL Hct (36.0-48.0) % MCV (80.0-105.0) fl MCH (25.0-35.0) pg MCHC (31.0-37.0) g/dl RDW (11.5-14.5) % Plt Count (120.0-450.0) 10^3/uL Neut % (Auto) (50.0-68.0) % Lymph % (Auto) (22.0-35.0) % [place] % (Auto) (1.0-6.0) % Eos % (Auto) (1.5-5.0) % Baso % (Auto) (0.0-3.0) % Lymph # (Auto) (1.2-3.4) [place] # (Auto) (0.1-0.6) Eos # (Auto) (0.0-0.7) Baso # (Auto) (0.0-2.0) K/mm3 Absolute Neuts (auto) (1.4-6.5) pCO2 53 H (35-45) mm/Hg pO2 116.0 H (80-100) mm/Hg HCO3 28.6 H (21-28) mmol/L ABG pH 7.34 L (7.35-7.45) ABG Total CO2 30.2 H (22-28) mmol.L ABG O2 Saturation 99.9 H (95-98) % ABG O2 Content 13.6 L (15-23) ML/dl ABG Base Excess 2.1 (-2.0-3.0) mmol/L ABG Hemoglobin 9.9 L (11.7-17.4) g/dL ABG Carboxyhemoglobin 2.6 H (0.5-1.5) % POC ABG HHb (Measured) 0.1 (0-5) % ABG Methemoglobin 1.0 (0.0-3.0) % ABG O2 Capacity 13.6 L (16-24) mL/dl Hgb O2 Saturation 96.3 (95.0-98.0) % FiO2 30.0 % Crit Value Called To Crit Value Called By Blood Gas Notified Time Sodium 148 (132-148) mmol/L Potassium 4.8 (3.6-5.0) mmol/L Chloride 110 H (98-107) mmol/L Carbon Dioxide 29 (21-33) mmol/L Anion Gap 14 (10-20) BUN 112 H (7-21) mg/dL Creatinine 3.2 H (0.7-1.2) mg/dl Est GFR ( Amer) 17 Est GFR (Non-Af Amer) 14 POC Glucose (mg/dL) 355 H (65-110) mg/dL Random Glucose 366 H* D (70-110) mg/dL Calcium 9.6 (8.4-10.5) mg/dL Total Bilirubin 0.5 (0.2-1.3) mg/dL AST 20 (14-36) U/L ALT 16 (7-56) U/L Alkaline Phosphatase 70 (38-126) U/L Total Protein 7.2 (5.8-8.3) g/dL Albumin 3.8 (3.0-4.8) g/dL Globulin 3.4 gm/dL Albumin/Globulin Ratio 1.1 (1.1-1.8) U Random Total Protein (21-161) mg/g creat Urine Creatinine (20-275) mg/dL Urine Microalbumin mg/dL Microalb/Creat Ratio (<30) 10/29/18 10/28/18 10/28/18 Range/Units 05:35 21:33 17:20 WBC 8.8 D (4.5-11.0) 10^3/uL RBC 3.85 (3.5-6.1) 10^6/uL Hgb 10.2 L (12.0-16.0) g/dL Hct 35.0 L (36.0-48.0) % MCV 90.9 (80.0-105.0) fl MCH 26.5 (25.0-35.0) pg MCHC 29.1 L (31.0-37.0) g/dl RDW 16.5 H (11.5-14.5) % Plt Count 189 (120.0-450.0) 10^3/uL Neut % (Auto) 92.9 H (50.0-68.0) % Lymph % (Auto) 4.3 L (22.0-35.0) % Sanborn % (Auto) 2.8 (1.0-6.0) % Eos % (Auto) 0.0 L (1.5-5.0) % Baso % (Auto) 0.0 (0.0-3.0) % Lymph # (Auto) 0.4 L (1.2-3.4) Sanborn # (Auto) 0.3 (0.1-0.6) Eos # (Auto) 0.0 (0.0-0.7) Baso # (Auto) 0.00 (0.0-2.0) K/mm3 Absolute Neuts (auto) 8.18 H (1.4-6.5) pCO2 (35-45) mm/Hg pO2 (80-100) mm/Hg HCO3 (21-28) mmol/L ABG pH (7.35-7.45) ABG Total CO2 (22-28) mmol.L ABG O2 Saturation (95-98) % ABG O2 Content (15-23) ML/dl ABG Base Excess (-2.0-3.0) mmol/L ABG Hemoglobin (11.7-17.4) g/dL ABG Carboxyhemoglobin (0.5-1.5) % POC ABG HHb (Measured) (0-5) % ABG Methemoglobin (0.0-3.0) % ABG O2 Capacity (16-24) mL/dl Hgb O2 Saturation (95.0-98.0) % FiO2 % Crit Value Called To Crit Value Called By Blood Gas Notified Time Sodium (132-148) mmol/L Potassium (3.6-5.0) mmol/L Chloride (98-107) mmol/L Carbon Dioxide (21-33) mmol/L Anion Gap (10-20) BUN (7-21) mg/dL Creatinine (0.7-1.2) mg/dl Est GFR ( Amer) Est GFR (Non-Af Amer) POC Glucose (mg/dL) 293 H 328 H (65-110) mg/dL Random Glucose (70-110) mg/dL Calcium (8.4-10.5) mg/dL Total Bilirubin (0.2-1.3) mg/dL AST (14-36) U/L ALT (7-56) U/L Alkaline Phosphatase (38-126) U/L Total Protein (5.8-8.3) g/dL Albumin (3.0-4.8) g/dL Globulin gm/dL Albumin/Globulin Ratio (1.1-1.8) U Random Total Protein (21-161) mg/g creat Urine Creatinine (20-275) mg/dL Urine Microalbumin mg/dL Microalb/Creat Ratio (<30) 10/28/18 10/27/18 10/27/18 Range/Units 16:43 15:45 15:45 WBC (4.5-11.0) 10^3/uL RBC (3.5-6.1) 10^6/uL Hgb (12.0-16.0) g/dL Hct (36.0-48.0) % MCV (80.0-105.0) fl MCH (25.0-35.0) pg MCHC (31.0-37.0) g/dl RDW (11.5-14.5) % Plt Count (120.0-450.0) 10^3/uL Neut % (Auto) (50.0-68.0) % Lymph % (Auto) (22.0-35.0) % Sanborn % (Auto) (1.0-6.0) % Eos % (Auto) (1.5-5.0) % Baso % (Auto) (0.0-3.0) % Lymph # (Auto) (1.2-3.4) Sanborn # (Auto) (0.1-0.6) Eos # (Auto) (0.0-0.7) Baso # (Auto) (0.0-2.0) K/mm3 Absolute Neuts (auto) (1.4-6.5) pCO2 62 H (35-45) mm/Hg pO2 158.0 H (80-100) mm/Hg HCO3 29.8 H (21-28) mmol/L ABG pH 7.29 L (7.35-7.45) ABG Total CO2 31.7 H (22-28) mmol.L ABG O2 Saturation 100.1 H (95-98) % ABG O2 Content 13.2 L (15-23) ML/dl ABG Base Excess 2.3 (-2.0-3.0) mmol/L ABG Hemoglobin 9.5 L (11.7-17.4) g/dL ABG Carboxyhemoglobin 2.4 H (0.5-1.5) % POC ABG HHb (Measured) -0.1 L (0-5) % ABG Methemoglobin 1.1 (0.0-3.0) % ABG O2 Capacity 13.2 L (16-24) mL/dl Hgb O2 Saturation 96.5 (95.0-98.0) % FiO2 21.0 % Crit Value Called To Mercedes cobos Crit Value Called By [facility] Blood Gas Notified Time 1646 Sodium (132-148) mmol/L Potassium (3.6-5.0) mmol/L Chloride (98-107) mmol/L Carbon Dioxide (21-33) mmol/L Anion Gap (10-20) BUN (7-21) mg/dL Creatinine (0.7-1.2) mg/dl Est GFR ( Amer) Est GFR (Non-Af Amer) POC Glucose (mg/dL) (65-110) mg/dL Random Glucose (70-110) mg/dL Calcium (8.4-10.5) mg/dL Total Bilirubin (0.2-1.3) mg/dL AST (14-36) U/L ALT (7-56) U/L Alkaline Phosphatase (38-126) U/L Total Protein (5.8-8.3) g/dL Albumin (3.0-4.8) g/dL Globulin gm/dL Albumin/Globulin Ratio (1.1-1.8) U Random Total Protein 2247 H (21-161) mg/g creat Urine Creatinine 89 (20-275) mg/dL Urine Microalbumin 43.9 mg/dL Microalb/Creat Ratio 493 H (<30) Laboratory Results - last 24 hr 10/27/18 10/27/18 10/28/18 15:45 15:45 16:43 WBC RBC Hgb Hct MCV MCH MCHC RDW Plt Count Neut % (Auto) Lymph % (Auto) Sanborn % (Auto) Eos % (Auto) Baso % (Auto) Lymph # (Auto) Sanborn # (Auto) Eos # (Auto) Baso # (Auto) Absolute Neuts (auto) pCO2 62 H pO2 158.0 H HCO3 29.8 H ABG pH 7.29 L ABG Total CO2 31.7 H ABG O2 Saturation 100.1 H ABG O2 Content 13.2 L ABG Base Excess 2.3 ABG Hemoglobin 9.5 L ABG Carboxyhemoglobin 2.4 H POC ABG HHb (Measured) -0.1 L ABG Methemoglobin 1.1 ABG O2 Capacity 13.2 L Hgb O2 Saturation 96.5 FiO2 21.0 Crit Value Called To Mercedes cobos Crit Value Called By Atc Blood Gas Notified Time 1646 Sodium Potassium Chloride Carbon Dioxide Anion Gap BUN Creatinine Est GFR ( Amer) Est GFR (Non-Af Amer) POC Glucose (mg/dL) Random Glucose Calcium Total Bilirubin AST ALT Alkaline Phosphatase Total Protein Albumin Globulin Albumin/Globulin Ratio U Random Total Protein 2247 H Urine Creatinine 89 Urine Microalbumin 43.9 Microalb/Creat Ratio 493 H 10/28/18 10/28/18 10/29/18 17:20 21:33 05:35 WBC 8.8 D RBC 3.85 Hgb 10.2 L Hct 35.0 L MCV 90.9 MCH 26.5 MCHC 29.1 L RDW 16.5 H Plt Count 189 Neut % (Auto) 92.9 H Lymph % (Auto) 4.3 L Sanborn % (Auto) 2.8 Eos % (Auto) 0.0 L Baso % (Auto) 0.0 Lymph # (Auto) 0.4 L Sanborn # (Auto) 0.3 Eos # (Auto) 0.0 Baso # (Auto) 0.00 Absolute Neuts (auto) 8.18 H pCO2 pO2 HCO3 ABG pH ABG Total CO2 ABG O2 Saturation ABG O2 Content ABG Base Excess ABG Hemoglobin ABG Carboxyhemoglobin POC ABG HHb (Measured) ABG Methemoglobin ABG O2 Capacity Hgb O2 Saturation FiO2 Crit Value Called To Crit Value Called By Blood Gas Notified Time Sodium Potassium Chloride Carbon Dioxide Anion Gap BUN Creatinine Est GFR ( Amer) Est GFR (Non-Af Amer) POC Glucose (mg/dL) 328 H 293 H Random Glucose Calcium Total Bilirubin AST ALT Alkaline Phosphatase Total Protein Albumin Globulin Albumin/Globulin Ratio U Random Total Protein Urine Creatinine Urine Microalbumin Microalb/Creat Ratio 10/29/18 10/29/18 10/29/18 05:35 05:45 07:09 WBC RBC Hgb Hct MCV MCH MCHC RDW Plt Count Neut % (Auto) Lymph % (Auto) Sanborn % (Auto) Eos % (Auto) Baso % (Auto) Lymph # (Auto) Sanborn # (Auto) Eos # (Auto) Baso # (Auto) Absolute Neuts (auto) pCO2 53 H pO2 116.0 H HCO3 28.6 H ABG pH 7.34 L ABG Total CO2 30.2 H ABG O2 Saturation 99.9 H ABG O2 Content 13.6 L ABG Base Excess 2.1 ABG Hemoglobin 9.9 L ABG Carboxyhemoglobin 2.6 H POC ABG HHb (Measured) 0.1 ABG Methemoglobin 1.0 ABG O2 Capacity 13.6 L Hgb O2 Saturation 96.3 FiO2 30.0 Crit Value Called To Crit Value Called By Blood Gas Notified Time Sodium 148 Potassium 4.8 Chloride 110 H Carbon Dioxide 29 Anion Gap 14 BUN 112 H Creatinine 3.2 H Est GFR ( Amer) 17 Est GFR (Non-Af Amer) 14 POC Glucose (mg/dL) 355 H Random Glucose 366 H* D Calcium 9.6 Total Bilirubin 0.5 AST 20 ALT 16 Alkaline Phosphatase 70 Total Protein 7.2 Albumin 3.8 Globulin 3.4 Albumin/Globulin Ratio 1.1 U Random Total Protein Urine Creatinine Urine Microalbumin Microalb/Creat Ratio Radiology Impressions: Radiology Impressions Chest X-Ray 10/29/18 06:00 IMPRESSION: Interval mild improvement in pulmonary venous congestion. No other significant interval change. Critical Care Progress Note - Nutrition Nutrition: Nutrition Category Date Time Status Pureed [Dysphagia/Modified Consistency Diet] [DIET] Diets 10/28/18 Lunch Ordered Attending/Attestation - Attestation I have personally seen and examined this patient.: Yes I have fully participated in the care of the patient.: Yes I have reviewed all pertinent clinical information: Yes Notes (Text): 10/29/18 16:[address] Santiago note
--- NOTE | 2018-10-29 10:20 | CP.PCM.PN ---
<Mathew Vigil - Last Filed: 10/29/18 10:15> Subjective - Date & Time of Evaluation Date of Evaluation: 10/29/18 Time of Evaluation: 08:55 - Subjective Subjective: Mathew Vigil D.O. PGY-3, Internal Medicine Resident, Infectious Disease Progress Note 73 y/o female admitted to ICU for hypertensive emergency complicated by ventilator dependent hypercapnic respiratory failure in the setting of cardiorenal syndrome. Infectious disease consultation was requested for pneumonia. Patient was seen and examined at bedside. Family member present at bedside. Overall feeling better. Still somewhat fatigued but in good spirits. Objective - Vital Signs/Intake and Output Vital Signs (last 24 hours): Temp Pulse Resp BP Pulse Ox 97.7 F 122 H 19 161/85 H 98 10/29/18 05:00 10/29/18 06:00 10/29/18 06:00 10/29/18 06:00 10/29/18 06:00 Intake and Output: 10/29/18 10/29/18 06:59 18:59 Intake Total 2159 Output Total 600 Balance 1559 - Medications Medications: Current Medications Acetaminophen (Tylenol 325mg Tab) 650 mg PO Q6H PRN PRN Reason: Fever >100.4 F Last Admin: 10/21/18 16:47 Dose: 650 mg Albuterol/Ipratropium (Duoneb 3 Mg/0.5 Mg (3 Ml) Ud) 3 ml IH Q2H PRN PRN Reason: Shortness of Breath Last Admin: 10/19/18 10:38 Dose: 3 ml Amlodipine Besylate (Norvasc) 10 mg PO DAILY [facility] Last Admin: 10/28/18 11:19 Dose: 10 mg Apixaban (Eliquis) 2.5 mg PO BID [facility]; Protocol Last Admin: 10/28/18 18:00 Dose: Not Given Atorvastatin Calcium (Lipitor) 40 mg PO DAILY [facility] Last Admin: 10/28/18 09:03 Dose: Not Given Budesonide (Pulmicort Respules) 0.5 mg IH [id number] [facility] Last Admin: 10/29/18 07:16 Dose: 0.5 mg Folic Acid (Folic Acid) 1 mg PO DAILY [facility] Last Admin: 10/28/18 09:34 Dose: Not Given Hydralazine HCl (Apresoline) 50 mg PO BID [facility] Last Admin: 10/28/18 18:00 Dose: Not Given Hydralazine HCl (Apresoline) 10 mg IVP Q4 PRN PRN Reason: SBP > 180 Last Admin: 10/28/18 15:50 Dose: 10 mg Nicardipine HCl (Cardene Iv Premix) 20 mg in 200 mls @ 50 mls/hr IV .Q4H PRN; Protocol PRN Reason: TITRATE PER MD ORDER Last Titration: 10/24/18 07:15 Dose: 0 mg/hr, 0 mls/hr Midazolam 100 mg/100ml in NS (Midazolam 100 Mg/100ml In Ns) 100 mg in 100 mls @ 1 mls/hr IV .Q24H PRN; Protocol PRN Reason: Sedation Last Titration: 10/25/18 06:53 Dose: 0 mg/hr, 0 mls/hr Meropenem 250 mg/ Sodium (Chloride) 100 mls @ 100 mls/hr IVPB Q12H LINDA; Protocol Stop: 10/31/18 10:16 Last Admin: 10/28/18 22:44 Dose: 100 mls/hr diltiaZEM IVPB 100mg in NS (Cardizem 100mg In Ns) 100 mls @ 5 mls/hr IV .Q20H PRN; Protocol PRN Reason: TITRATE PER MD ORDER Last Admin: 10/29/18 01:58 Dose: 2.5 mg/hr, 2.5 mls/hr Insulin Human Regular (Humulin R High) 0 units SC ACHS LINDA; Protocol Last Admin: 10/29/18 08:39 Dose: 12 units Levalbuterol HCl (Xopenex) 1.25 mg IH [id number] LINDA Last Admin: 10/29/18 07:16 Dose: 1.25 mg Methylprednisolone (Solu-Medrol) 40 mg IVP Q12 LINDA Last Admin: 10/28/18 22:45 Dose: 40 mg Metoprolol Tartrate (Lopressor) 50 mg PO BID [facility] Last Admin: 10/28/18 13:47 Dose: 50 mg Montelukast Sodium (Singulair) 10 mg PO HS [facility] Last Admin: 10/28/18 22:46 Dose: 10 mg Ondansetron HCl (Zofran Inj) 4 mg IVP Q6H PRN PRN Reason: Nausea/Vomiting Last Admin: 10/19/18 07:55 Dose: 4 mg Pantoprazole Sodium (Protonix Ec Tab) 40 mg PO 0600 [facility] Last Admin: 10/29/18 06:01 Dose: 40 mg Polyethylene Glycol (Miralax) 17 gm PO BID [facility] Last Admin: 10/28/18 18:47 Dose: Not Given Pregabalin (Lyrica) 75 mg PO BID [facility] Last Admin: 10/24/18 09:45 Dose: 75 mg Sildenafil Citrate (Revatio) 20 mg PO BID [facility] Last Admin: 10/28/18 18:48 Dose: Not Given Verapamil HCl (Verapamil Inj) 2.5 mg IVP Q6H PRN PRN Reason: for Heart rate >120 Last Admin: 10/26/18 02:12 Dose: 2.5 mg Vitamin A (Vitamin A & D Oint Ud Foilpak) 1 ea TOP BID [facility] Last Admin: 10/28/18 18:50 Dose: 1 ea - Labs Labs: 10/29/18 05:35 10/29/18 05:35 PT 14.8 SECONDS (9.4-12.5) H 10/23/18 14:00 INR 1.33 10/23/18 14:00 APTT 26.6 Seconds (26.9-38.3) L 10/23/18 14:00 - Constitutional Appears: Non-toxic, Chronically Ill - Head Exam Head Exam: ATRAUMATIC - Eye Exam Eye Exam: EOMI - ENT Exam ENT Exam: Mucous Membranes Moist - Neck Exam Neck Exam: Normal Inspection - Cardiovascular Exam Cardiovascular Exam: Tachycardia - GI/Abdominal Exam GI & Abdominal Exam: Soft - Extremities Exam Extremities Exam: absent: Tenderness - Neurological Exam Neurological Exam: Alert, Awake - Skin Skin Exam: Dry, Warm Assessment and Plan - Assessment and Plan (Free Text) Assessment: 73 y/o female admitted to ICU for hypertensive emergency complicated by ve ntilator dependent hypercapnic respiratory failure in the setting of cardiorenal syndrome. Infectious disease consultation was requested for pneumonia. Plan: Pseudomonas UTI HAP Continue meropenem now day 12 of 14 Clinically improved Afebrile No leukocytosis Will continue to follow Patient was seen and examined and case to be discussed with attending physician Thank you for the pleasure of participating in the care of this interesting patient <Juan Miguel Malone - Last Filed: 10/29/18 12:34> Objective - Vital Signs/Intake and Output Vital Signs (last 24 hours): Temp Pulse Resp BP Pulse Ox 97.7 F 122 H 19 156/60 H 98 10/29/18 05:00 10/29/18 10:30 10/29/18 06:00 10/29/18 10:35 10/29/18 06:00 Intake and Output: 10/29/18 10/29/18 06:59 18:59 Intake Total 2159 Output Total 600 Balance 1559 - Medications Medications: Current Medications Acetaminophen (Tylenol 325mg Tab) 650 mg PO Q6H PRN PRN Reason: Fever >100.4 F Last Admin: 10/21/18 16:47 Dose: 650 mg Albuterol/Ipratropium (Duoneb 3 Mg/0.5 Mg (3 Ml) Ud) 3 ml IH Q2H PRN PRN Reason: Shortness of Breath Last Admin: 10/19/18 10:38 Dose: 3 ml Amiodarone HCl (Cordarone) 200 mg PO DAILY [facility] Amiodarone HCl (Cordarone) 400 mg PO TID [facility] Stop: 10/30/18 23:59 Apixaban (Eliquis) 2.5 mg PO BID [facility]; Protocol Last Admin: 10/29/18 10:27 Dose: 2.5 mg Atorvastatin Calcium (Lipitor) 40 mg PO DAILY [facility] Last Admin: 10/29/18 10:29 Dose: 40 mg Budesonide (Pulmicort Respules) 0.5 mg IH [id number] [facility] Last Admin: 10/29/18 07:16 Dose: 0.5 mg Digoxin (Lanoxin) 0.25 mg IVP ONCE ONE Stop: 10/29/18 15:01 Folic Acid (Folic Acid) 1 mg PO DAILY [facility] Last Admin: 10/29/18 10:28 Dose: 1 mg Hydralazine HCl (Apresoline) 50 mg PO BID [facility] Last Admin: 10/29/18 10:25 Dose: 50 mg Hydralazine HCl (Apresoline) 10 mg IVP Q4 PRN PRN Reason: SBP > 180 Last Admin: 10/28/18 15:50 Dose: 10 mg Nicardipine HCl (Cardene Iv Premix) 20 mg in 200 mls @ 50 mls/hr IV .Q4H PRN; Protocol PRN Reason: TITRATE PER MD ORDER Last Titration: 10/24/18 07:15 Dose: 0 mg/hr, 0 mls/hr Midazolam 100 mg/100ml in NS (Midazolam 100 Mg/100ml In Ns) 100 mg in 100 mls @ 1 mls/hr IV .Q24H PRN; Protocol PRN Reason: Sedation Last Titration: 10/25/18 06:53 Dose: 0 mg/hr, 0 mls/hr Meropenem 250 mg/ Sodium (Chloride) 100 mls @ 100 mls/hr IVPB Q12H LINDA; Protocol Stop: 10/31/18 10:16 Last Admin: 10/29/18 10:31 Dose: 100 mls/hr Insulin Human Regular (Humulin R High) 0 units SC ACHS [facility]; Protocol Last Admin: 10/29/18 08:39 Dose: 12 units Levalbuterol HCl (Xopenex) 1.25 mg IH [id number] [facility] Last Admin: 10/29/18 07:16 Dose: 1.25 mg Methylprednisolone (Solu-Medrol) 40 mg IVP Q12 [facility] Last Admin: 10/29/18 10:39 Dose: 40 mg Metoprolol Tartrate (Lopressor) 50 mg PO BID [facility] Last Admin: 10/29/18 10:30 Dose: 50 mg Montelukast Sodium (Singulair) 10 mg PO HS [facility] Last Admin: 10/28/18 22:46 Dose: 10 mg Ondansetron HCl (Zofran Inj) 4 mg IVP Q6H PRN PRN Reason: Nausea/Vomiting Last Admin: 10/19/18 07:55 Dose: 4 mg Pantoprazole Sodium (Protonix Ec Tab) 40 mg PO 0600 [facility] Last Admin: 10/29/18 06:01 Dose: 40 mg Polyethylene Glycol (Miralax) 17 gm PO BID [facility] Last Admin: 10/29/18 10:34 Dose: 17 gm Pregabalin (Lyrica) 75 mg PO BID [facility] Last Admin: 10/24/18 09:45 Dose: 75 mg Sildenafil Citrate (Revatio) 20 mg PO BID [facility] Last Admin: 10/29/18 10:38 Dose: 20 mg Verapamil HCl (Verapamil Inj) 2.5 mg IVP Q6H PRN PRN Reason: for Heart rate >120 Last Admin: 10/26/18 02:12 Dose: 2.5 mg Verapamil HCl (Calan Tab) 80 mg PO TID LINDA Vitamin A (Vitamin A & D Oint Ud Foilpak) 1 ea TOP BID [facility] Last Admin: 10/29/18 10:40 Dose: 1 ea - Labs Labs: 10/29/18 05:35 10/29/18 05:35 PT 14.8 SECONDS (9.4-12.5) H 10/23/18 14:00 INR 1.33 10/23/18 14:00 APTT 26.6 Seconds (26.9-38.3) L 10/23/18 14:00 Attending/Attestation - Attestation I have personally seen and examined this patient.: Yes I have fully participated in the care of the patient.: Yes I have reviewed all pertinent clinical information, including history, physical exam and plan: Yes
[2018-10-29] MEDS ORDERED: Digoxin 500 mcg/2ml (0.5 mg/2ml) Inj IVP ONE ×2 (10:32→15:00)
[2018-10-29] MEDS: POLYETHYLENE GLYCOL 3350 17 GM/Dose PACKET PO SCH ×2 (10:34→18:54)
[2018-10-29] MEDS: Sildenafil 20 MG TAB PO SCH ×2 (10:38→19:01)
[2018-10-29] MEDS: MethylPREDNISolone 40 mg Vial IVP SCH (10:39)
[2018-10-29] MEDS: Vitamins A & D Oint UD Foilpak TOP SCH ×2 (10:40→19:02)
--- NOTE | 2018-10-29 11:47 | PN ---
DATE: 10/29/2018 SUBJECTIVE: The patient seen and examined at bedside. She is much more alert, awake, more comfortable, not in respiratory or otherwise distress. She is back on Cardizem 10 mg per hour. PHYSICAL EXAMINATION: VITAL SIGNS: She does have what appears to be a flutter on the monitor with heart rate 123, however, blood pressure 161/76, oxygen saturation 98% on 2 liters nasal cannula, and respiratory rate 14. HEENT: Head and neck atraumatic. LUNGS: Clear to auscultation bilaterally. HEART: Regular rate and rhythm. S1 and S2 normal. ABDOMEN: Soft, nontender, nondistended. MUSCULOSKELETAL: No C/C/E. NEUROLOGIC: The patient moves all extremities spontaneously. SKIN: Moist. PSYCHIATRIC: The patient is alert, awake, and oriented x3. LABORATORY DATA: ABG today off BiPAP, 7.34/53/116. WBC 8.8, hemoglobin 10.2, platelet count 189. Sodium 148, potassium 4.8, chloride 110, carbon dioxide 29, BUN 112, creatinine 3.2 down from 3.9, glucose 355. MEDICATIONS: Tylenol p.r.n., DuoNeb p.r.n., Norvasc, Eliquis, Lipitor, D5 60 mL/hour, Cardizem drip, hydralazine p.r.n. and 50 mg p.o. b.i.d., regular insulin sliding scale high protocol, meropenem, Solu-Medrol, metoprolol, Lyrica, Revatio, verapamil. ASSESSMENT AND PLAN: This is a 73-year-old lady with resolved hypercapnic respiratory failure secondary to chronic obstructive pulmonary disease exacerbation in the setting of right ventricular failure. At present time, the patient is off bilevel positive airway pressure and appears to be doing much better. She is on nebulizers, steroids, and antibiotics. She is managed with conservative fluid strategy and appears to be euvolemic at the present time. She does appear to have a flutter despite Cardizem drip. Cardiology service is on board. She is also on metoprolol p.o. We will touch base with Cardiology on how to proceed best from there. The patient is on therapeutic anticoagulation with Eliquis as well. ccm time 40 min Vitaliy Santiago MD [facility]
--- NOTE | 2018-10-29 12:23 | PN ---
DATE: 10/29/2018 REASON FOR CONSULTATION AND FOLLOWUP: Coronary artery disease, COPD, history of PTCA, history of CABG, history of atrial fibrillation, history of pacemaker, admitted with worsening renal insufficiency, status post respiratory failure and pneumonia, now extubated. SUBJECTIVE: The patient is on noninvasive ventilator CPAP. Denies any chest pain, shortness of breath or any palpitation. Still atrial flutter with heart rate 122. OBJECTIVE: GENERAL: Not in apparent distress. VITAL SIGNS: Temperature afebrile. Heart rate 122 and blood pressure 161/85. HEENT: PERRLA. Extraocular muscles intact. NECK: Supple. No carotid bruit. No thyromegaly. CHEST: Clear to auscultation. HEART: S1 and S2, irregular. ABDOMEN: Soft. EXTREMITIES: Clubbing and cyanosis negative. LABORATORY DATA: WBC 8.8, hemoglobin 10.2, hematocrit 35.0 and platelet count 189. Chemistry shows sodium 148, potassium 4.1, chloride 110, carbon dioxide 29, anion gap of 14, BUN 112, creatinine 3.2 with a creatinine clearance 17 mL, total protein 7.2, albumin 3.8, albumin-globulin ratio 1.1. IMPRESSION: A 73-year-old obese female with past medical history significant for coronary artery disease, status post coronary artery bypass graft; status post percutaneous transluminal coronary angioplasty for right coronary artery occluded; history of permanent pacemaker; history of proximal atrial fibrillation; history of renal insufficiency, pneumonia; history of pulmonary hypertension; admitted with pneumonia; shortness of breath; decompensated congestive heart failure; chronic obstructive pulmonary disease, exacerbation and renal insufficiency worsening. Currently, on Cardizem for controlled heart rate. Most recent echo dated 10/19/2018, shows ejection fraction 55%-60%, right ventricle mild to moderate dilated systolic function moderately reduced, trace aortic regurgitation, aortic sclerosis versus mild aortic stenosis, trace mitral regurgitation, mild mitral valvular stenosis, mild tricuspid regurgitation, right ventricular systolic pressure 55%, mild to moderate pulmonary hypertension. The patient heart failure secondary to right-sided heart failure and renal insufficiency as well as atrial fibrillation with rapid ventricular rate. RECOMMENDATION: We will start Verapamil with 2 doses of this to slow the heart rate. Continue Eliquis and we will wean off Cardizem. Continue p.o. metoprolol and continue p.r.n. IV Verapamil, discontinue amlodipine. Sapna Latif MD
--- NOTE | 2018-10-29 14:45 | PN ---
DATE: 10/29/2018 SUBJECTIVE: The patient is 73 years old, seen and examined. She is extubated till short of breath. Her cardiac rhythm is AFib/Aflutter. Poor oral intake. PHYSICAL EXAMINATION VITAL SIGNS: She is afebrile, pulse 122, respirations 19, blood pressure 156/60. LUNGS: Bilateral diffusely decreased breath sounds. HEART: S1 and S2 audible. Regular. Tachycardia. ABDOMEN: Soft, nontender. No rebound. No guarding. NEUROLOGIC: The patient is awake and alert, able to communicate. LABORATORY DATA: WBC is 8.8, hemoglobin 10.2, hematocrit 35, platelets 189. Chemistry: Sodium 148, potassium 4.8, chloride 110, CO2 of 29, BUN 12, creatinine 3.2, blood sugar of 355. Urine growing Pseudomonas aeruginosa. Repeat cultures are negative. X-RAY CHEST: X-ray chest shows improvement in pulmonary venous congestion. ASSESSMENT 1. Chronic obstructive pulmonary disease exacerbation. 2. Congestive heart failure. 3. Atrial fibrillation/atrial flutter. 4. Poorly-controlled diabetes. 5. Pseudomonas aeruginosa urinary tract infection. 6. Pulmonary hypertension. 7. Coronary artery disease. PLAN: Currently, the patient is on nebulizer treatment. She is on IV antibiotics. She is on amiodarone 400 mg 3 times a day. She is on Eliquis. She is on statin. We will continue her on Lyrica. She is on meropenem and she is on IV steroids. Continue above treatment. Followup electrolytes. Laurel Schultz MD
--- NOTE | 2018-10-29 15:19 | PN ---
DATE: 10/29/2018 SUBJECTIVE: The patient is currently seen in CCU bed 1. Her daughter is in the room. The patient remains on nasal cannula oxygen. She did eat breakfast this morning. She was extubated over the weekend. She continues to have a slow rise in her BUN and creatinine levels. Her creatinine did stabilize today at 3.2 down from 3.9. The patient is currently off diuretic therapy. Today's chest x-ray showed improvement in her pulmonary vascular congestion. MEDICATIONS The patient's list reviewed. She remains on hydralazine, p.o. verapamil, amiodarone, DuoNeb is on hold, Eliquis, folic acid, insulin, Lanoxin, Lipitor, Lopressor, meropenem, MiraLax, Protonix, Pulmicort, Singulair, Solu-Medrol, p.r.n. IV verapamil, Xopenex, Zofran, Revatio, Singulair, IV diltiazem. OBJECTIVE: INTAKE/OUTPUT: Intake is 3152, output is 1000. VITAL SIGNS: Blood pressure is 156/60, pulse is 122 and irregular. Temperature is 97.7 with a respiratory rate of 19. HEENT: Shows her to be normocephalic, atraumatic. Conjunctivae are pale. Sclerae nonicteric. NECK: Supple. No neck vein distention. CHEST: Occasional scattered rhonchi. No rales. Decreased breath sounds at the bases. No wheezing. CARDIOVASCULAR: Shows an irregular S1, S2 with MR/TR/AI/. No S3, no S4, no rub. ABDOMEN: Moderately obese. Nondistended. Soft. Bowel sounds normal. No rebound, guarding or masses. EXTREMITIES: Show no significant lower extremity cyanosis, clubbing or edema. LABORATORY DATA AND IMAGING STUDIES: CBC, white blood cell count today 8.8, improved. Hemoglobin stable at 10.2, platelet count is 189,000. Blood gas from today pH 7.34, pCO2 of 53 with a pO2 of 116. Chemistry showed BUN of 112 with a creatinine of 3.2, chloride is 110. Glucose is 366. Calcium is 9.6. Her BUN has trended upward from 37 and is now 112. The patient does remain on IV steroids. She, however, is off diuretic therapy at this point in time. Creatinine peaked at 3.9 with perhaps extra fluid hydration and creatinine is down to 3.2. Potassium level was normal at 4.8. Influenza titers were positive. Stool occult blood was positive. Workup for vasculitis was negative. Microbiology, urine was positive for Pseudomonas. Blood cultures were positive for coag-negative staph and sputum was positive for yeast. ASSESSMENT: 1. Acute renal failure superimposed on chronic kidney disease stage III/IV. Her baseline creatinine is in the mid 1 range. Her baseline BUN is in the mid 30s. She has acute renal failure superimposed on chronic kidney disease. This is in the setting of bilateral pneumonia with respiratory failure. The patient had required intermittent diuretic therapy and steroids. It will likely be necessary to accept a mild degree of prerenal azotemia, but would like to see her BUN heading back to her baseline. At present with an improvement in her creatinine and normal potassium, there is no need for any diuretic therapy. 2. History of chronic obstructive pulmonary disease with bilateral pneumonia. The patient has pulmonary nodules. She is completing a course of antibiotic therapy for pneumonia under the guidance of Infectious Disease. 3. Status post acute respiratory failure. The patient appears to be comfortable post extubation. 4. History of chronic anemia. Hemoglobin is stable at 10.2. This is in part secondary to chronic kidney disease and in part secondary to bone marrow suppression from pneumonia. 5. History of non-insulin dependent diabetes mellitus, currently stable on sliding scale insulin. 6. History of arteriosclerotic heart disease, status post coronary artery bypass grafting, stable. 7. History of pulmonary hypertension with valvular heart disease. The patient had a previous ejection fraction of 62%. PLAN: 1. Continue to monitor the patient closely in the ICU setting. 2. Complete course of antibiotic therapy for pneumonia. 3. Complete course of antibiotic therapy for urinary tract infection. 4. Keep the patient off DANIEL inhibitors and Aldactone. 5. We will accept a mild degree of prerenal azotemia, but I would like to see an improvement in her BUN back into the double digits. Creatinine has improved from 3.9-3.2. 6. Cautious fluid hydration. 7. Continue close cardiac followup for her atrial fibrillation/flutter. 8. Discussed with the patient, the patient's family and CCU nurse. Greater than 35 minutes spent in the care of this patient. Stalin Ibanez MD [facility] # [id number]
[2018-10-29] MEDS ORDERED: Insulin Regular 100 UNITS in Sodium Chloride 0.9% 99 ML IV PRN (17:55)
[2018-10-29] MEDS ORDERED: Dextrose 50% SYRINGE Inj (50 ml) IV PRN (17:55)
[2018-10-29] MEDS ORDERED: Digoxin 500 mcg/2ml (0.5 mg/2ml) Inj ONE (19:10)
[2018-10-29 20:31] VITALS: PULSE 63
[2018-10-29] MEDS ORDERED: MethylPREDNISolone 40 mg Vial IVP SCH (22:00)
[2018-10-30] MEDS: Levalbuterol 1.25 MG/3 ML Inhal Soln UD IH SCH ×4 (01:20→20:40)
[2018-10-30 06:33] LABS: ARTERIAL BLOOD GAS HCO3 29.6 mmol/L (21-28); ARTERIAL BLOOD GAS HEMOGLOBIN 9.9 g/dL (11.7-17.4); ARTERIAL BLOOD GAS O2 CAPACITY 13.7 mL/dl (16-24); ARTERIAL BLOOD GAS O2 CONTENT 13.6 ML/dl (15-23); ARTERIAL BLOOD GAS O2 SAT 99.6 % (95-98); ARTERIAL BLOOD GAS PCO2 63 mm/Hg (35-45); ARTERIAL BLOOD GAS PH 7.28 (7.35-7.45); ARTERIAL BLOOD GAS TCO2 31.5 mmol.L (22-28)
[2018-10-30 06:48] LABS: HEMOGLOBIN 10.5 g/dL (12.0-16.0); LYMPH # 0.8 (1.2-3.4); LYMPH % 6.6 % (22.0-35.0); MEAN CELL VOLUME 91.3 fl (80.0-105.0); MEAN CORPUSCULAR HEMOGLOBIN 26.7 pg (25.0-35.0); MEAN CORPUSCULAR HGB CONC 29.2 g/dl (31.0-37.0); MONO # 0.1 (0.1-0.6); MONO % 0.8 % (1.0-6.0); PLATELET COUNT 187 10^3/uL (120.0-450.0); RBC 3.93 10^6/uL (3.5-6.1); RED CELL DISTRIBUTION WIDTH 16.3 % (11.5-14.5); WHITE BLOOD COUNT 12.6 10^3/uL (4.5-11.0)
--- NOTE | 2018-10-30 06:53 | CP.CCUPN ---
<Bartolome James - Last Filed: 10/30/18 17:12> CCU Subjective - Physician Review Subjective (Free Text): Bartolome Jacob DO. Critical Care Progress note Patient seen and examined at bedside. She is feeling better today. No acute events overnight. Was on BiPAP for few hours during the night. She reports no SOB, CP CCU Objective - Vital Signs / Intake & Output Intake and Output (Last 8hrs): Intake & Output 10/29/18 10/29/18 10/30/18 14:59 22:59 06:59 Intake Total 895 Output Total 525 Balance 370 Intake: IV 615 Right Hand 600 Oral 180 Other 100 Output: Urine 525 Urethral ([place]) 525 Stool 0 Urine/Stool Mix 0 Emesis 0 Other: # Bowel Movements 0 - Physical Exam Head: Positive for: Atraumatic, Normocephalic Pupils: Positive for: PERRL Extroacular Muscles: Positive for: EOMI Conjunctiva: Positive for: Normal Mouth: Positive for: Moist Mucous Membranes Neck: Negative for: JVD Respiratory/Chest: Positive for: Clear to Auscultation, Good Air Exchange (fair air exchange bilaterally), Wheezes, Other (intubated). Negative for: Respiratory Distress, Rhonchi Cardiovascular: Positive for: Normal S1, S2, Irregular Rhythm, Tachycardic (tachycardic but normal rhythm) Abdomen: Positive for: Hernias (reducible umbilical hernia). Negative for: Distention, Peritoneal Signs Upper Extremity: Positive for: Normal Inspection, Cyanosis, NORMAL PULSES Lower Extremity: Positive for: Edema (trace edema to bilateral lower extremities), NORMAL PULSES. Negative for: CALF TENDERNESS, Cyanosis Neurological: Positive for: GCS=15, CN II-XII Intact, Speech Normal Skin: Positive for: Warm, Dry, Normal Color. Negative for: Rashes Psychiatric: Positive for: Alert, Oriented x 3 - Medications Active Medications: Active Medications Generic Name Dose Route Start Last Admin Trade Name Freq PRN Reason Stop Dose Admin Acetaminophen 650 mg 10/18/18 19:35 10/21/18 16:47 Tylenol 325mg Tab PO 650 mg Q6H PRN Administration Fever >100.4 F Albuterol/Ipratropium 3 ml 10/18/18 19:35 10/19/18 10:38 Duoneb 3 Mg/0.5 Mg (3 Ml) Ud IH 3 ml Q2H PRN Administration Shortness of Breath Amiodarone HCl 200 mg 10/31/18 10:00 Cordarone PO DAILY LINDA Amiodarone HCl 400 mg 10/29/18 14:00 10/29/18 18:59 Cordarone PO 10/30/18 23:59 400 mg TID LINDA Administration Apixaban 2.5 mg 10/18/18 19:30 10/29/18 19:03 Eliquis PO 2.5 mg BID LINDA Administration Protocol Atorvastatin Calcium 40 mg 10/19/18 10:00 10/29/18 10:29 Lipitor PO 40 mg DAILY LINDA Administration Budesonide 0.5 mg 10/22/18 08:00 10/29/18 20:15 Pulmicort Respules IH 0.5 mg [id number] LINDA Administration Dextrose 0 ml 10/29/18 17:55 Dextrose 50% Inj IV STAT PRN Hypoglycemia Protocol Protocol Folic Acid 1 mg 10/19/18 10:00 10/29/18 10:28 Folic Acid PO 1 mg DAILY LINDA Administration Hydralazine HCl 50 mg 10/22/18 18:00 10/29/18 19:07 Apresoline PO 50 mg BID LINDA Administration Hydralazine HCl 10 mg 10/23/18 17:33 10/28/18 15:50 Apresoline IVP 10 mg Q4 PRN Administration SBP > 180 Nicardipine HCl 20 mg in 200 mls @ 50 mls/hr 10/23/18 12:16 10/24/18 07:15 Cardene Iv Premix IV 0 mg/hr .Q4H PRN 0 mls/hr TITRATE PER MD ORDER Titration Protocol 5 MG/HR Midazolam 100 mg/100ml in NS 100 mg in 100 mls @ 1 mls/hr 10/23/18 14:09 10/25/18 06:53 Midazolam 100 Mg/100ml In Ns IV 0 mg/hr .Q24H PRN 0 mls/hr Sedation Titration Protocol 1 MG/HR Meropenem 250 mg/ Sodium 100 mls @ 100 mls/hr 10/24/18 10:15 10/29/18 23:46 Chloride IVPB 10/31/18 10:16 100 mls/hr Q12H LINDA Administration Protocol Dextrose 1,000 mls @ 0 mls/hr 10/29/18 17:55 Dextrose 5% In Water 1000 Ml IV .Q0M PRN Hypoglycemia Protocol Protocol Per Protocol Insulin Human Regular 100 100 mls @ 6 mls/hr 10/29/18 17:55 10/29/18 20:37 units/ Sodium Chloride IV 5 units/hr .[id number] PRN 5 mls/hr TITRATE PER MD ORDER Titration Protocol 6 UNITS/HR Levalbuterol HCl 1.25 mg 10/18/18 20:00 10/30/18 01:20 Xopenex IH 1.25 mg [id number] LINDA Administration Methylprednisolone 30 mg 10/29/18 22:00 10/29/18 23:00 Solu-Medrol IVP 30 mg Q12 LINDA Administration Metoprolol Tartrate 50 mg 10/18/18 19:30 10/29/18 19:05 Lopressor PO 50 mg BID LINDA Administration Montelukast Sodium 10 mg 10/18/18 22:00 10/29/18 23:00 Singulair PO 10 mg HS LINDA Administration Ondansetron HCl 4 mg 10/18/18 19:35 10/19/18 07:55 Zofran Inj IVP 4 mg Q6H PRN Administration Nausea/Vomiting Pantoprazole Sodium 40 mg 10/29/18 06:00 10/29/18 06:01 Protonix Ec Tab PO 40 mg 0600 LINDA Administration Polyethylene Glycol 17 gm 10/25/18 18:00 10/29/18 18:54 Miralax PO 17 gm BID LINDA Administration Pregabalin 75 mg 10/18/18 19:30 10/24/18 09:45 Lyrica PO 75 mg BID LINDA Administration Sildenafil Citrate 20 mg 10/19/18 10:00 10/29/18 19:01 Revatio PO 20 mg BID LINDA Administration Verapamil HCl 2.5 mg 10/24/18 12:34 10/26/18 02:12 Verapamil Inj IVP 2.5 mg Q6H PRN Administration for Heart rate >120 Verapamil HCl 80 mg 10/29/18 14:00 10/29/18 18:58 Calan Tab PO 80 mg TID LINDA Administration Vitamin A 1 ea 10/26/18 10:00 10/29/18 19:02 Vitamin A & D Oint Ud Foilpak TOP 1 ea BID LINDA Administration - Patient Studies Lab Studies: Lab Studies 10/30/18 10/30/18 10/30/18 Range/Units 06:14 06:10 05:40 WBC 12.6 H D (4.5-11.0) 10^3/uL RBC 3.93 (3.5-6.1) 10^6/uL Hgb 10.5 L (12.0-16.0) g/dL Hct 35.9 L (36.0-48.0) % MCV 91.3 (80.0-105.0) fl MCH 26.7 (25.0-35.0) pg MCHC 29.2 L (31.0-37.0) g/dl RDW 16.3 H (11.5-14.5) % Plt Count 187 (120.0-450.0) 10^3/uL Neut % (Auto) 92.6 H (50.0-68.0) % Lymph % (Auto) 6.6 L (22.0-35.0) % [place] % (Auto) 0.8 L (1.0-6.0) % Eos % (Auto) 0.0 L (1.5-5.0) % Baso % (Auto) 0.0 (0.0-3.0) % Lymph # (Auto) 0.8 L (1.2-3.4) [place] # (Auto) 0.1 (0.1-0.6) Eos # (Auto) 0.0 (0.0-0.7) Baso # (Auto) 0.00 (0.0-2.0) K/mm3 Absolute Neuts (auto) 11.65 H (1.4-6.5) pCO2 63 H (35-45) mm/Hg pO2 113.0 H (80-100) mm/Hg HCO3 29.6 H (21-28) mmol/L ABG pH 7.28 L (7.35-7.45) ABG Total CO2 31.5 H (22-28) mmol.L ABG O2 Saturation 99.6 H (95-98) % ABG O2 Content 13.6 L (15-23) ML/dl ABG Base Excess 1.9 (-2.0-3.0) mmol/L ABG Hemoglobin 9.9 L (11.7-17.4) g/dL ABG Carboxyhemoglobin 2.2 H (0.5-1.5) % POC ABG HHb (Measured) 0.4 (0-5) % ABG Methemoglobin 0.8 (0.0-3.0) % ABG O2 Capacity 13.7 L (16-24) mL/dl Hgb O2 Saturation 96.6 (95.0-98.0) % FiO2 28.0 % Crit Value Called To Rhina arguelles Crit Value Called By Sixto Blood Gas Notified Time 630 Sodium (132-148) mmol/L Potassium (3.6-5.0) mmol/L Chloride (98-107) mmol/L Carbon Dioxide (21-33) mmol/L Anion Gap (10-20) BUN (7-21) mg/dL Creatinine (0.7-1.2) mg/dl Est GFR ( Amer) Est GFR (Non-Af Amer) POC Glucose (mg/dL) 140 H (65-110) mg/dL Random Glucose (70-110) mg/dL Calcium (8.4-10.5) mg/dL Total Bilirubin (0.2-1.3) mg/dL AST (14-36) U/L ALT (7-56) U/L Alkaline Phosphatase (38-126) U/L Total Protein (5.8-8.3) g/dL Albumin (3.0-4.8) g/dL Globulin gm/dL Albumin/Globulin Ratio (1.1-1.8) 10/30/18 10/30/18 10/30/18 Range/Units 05:10 03:53 02:12 WBC (4.5-11.0) 10^3/uL RBC (3.5-6.1) 10^6/uL Hgb (12.0-16.0) g/dL Hct (36.0-48.0) % MCV (80.0-105.0) fl MCH (25.0-35.0) pg MCHC (31.0-37.0) g/dl RDW (11.5-14.5) % Plt Count (120.0-450.0) 10^3/uL Neut % (Auto) (50.0-68.0) % Lymph % (Auto) (22.0-35.0) % [place] % (Auto) (1.0-6.0) % Eos % (Auto) (1.5-5.0) % Baso % (Auto) (0.0-3.0) % Lymph # (Auto) (1.2-3.4) [place] # (Auto) (0.1-0.6) Eos # (Auto) (0.0-0.7) Baso # (Auto) (0.0-2.0) K/mm3 Absolute Neuts (auto) (1.4-6.5) pCO2 (35-45) mm/Hg pO2 (80-100) mm/Hg HCO3 (21-28) mmol/L ABG pH (7.35-7.45) ABG Total CO2 (22-28) mmol.L ABG O2 Saturation (95-98) % ABG O2 Content (15-23) ML/dl ABG Base Excess (-2.0-3.0) mmol/L ABG Hemoglobin (11.7-17.4) g/dL ABG Carboxyhemoglobin (0.5-1.5) % POC ABG HHb (Measured) (0-5) % ABG Methemoglobin (0.0-3.0) % ABG O2 Capacity (16-24) mL/dl Hgb O2 Saturation (95.0-98.0) % FiO2 % Crit Value Called To Crit Value Called By Blood Gas Notified Time Sodium (132-148) mmol/L Potassium (3.6-5.0) mmol/L Chloride (98-107) mmol/L Carbon Dioxide (21-33) mmol/L Anion Gap (10-20) BUN (7-21) mg/dL Creatinine (0.7-1.2) mg/dl Est GFR ( Amer) Est GFR (Non-Af Amer) POC Glucose (mg/dL) 163 H 142 H 169 H (65-110) mg/dL Random Glucose (70-110) mg/dL Calcium (8.4-10.5) mg/dL Total Bilirubin (0.2-1.3) mg/dL AST (14-36) U/L ALT (7-56) U/L Alkaline Phosphatase (38-126) U/L Total Protein (5.8-8.3) g/dL Albumin (3.0-4.8) g/dL Globulin gm/dL Albumin/Globulin Ratio (1.1-1.8) 10/30/18 10/29/18 10/29/18 Range/Units 01:04 23:51 23:06 WBC (4.5-11.0) 10^3/uL RBC (3.5-6.1) 10^6/uL Hgb (12.0-16.0) g/dL Hct (36.0-48.0) % MCV (80.0-105.0) fl MCH (25.0-35.0) pg MCHC (31.0-37.0) g/dl RDW (11.5-14.5) % Plt Count (120.0-450.0) 10^3/uL Neut % (Auto) (50.0-68.0) % Lymph % (Auto) (22.0-35.0) % [place] % (Auto) (1.0-6.0) % Eos % (Auto) (1.5-5.0) % Baso % (Auto) (0.0-3.0) % Lymph # (Auto) (1.2-3.4) [place] # (Auto) (0.1-0.6) Eos # (Auto) (0.0-0.7) Baso # (Auto) (0.0-2.0) K/mm3 Absolute Neuts (auto) (1.4-6.5) pCO2 (35-45) mm/Hg pO2 (80-100) mm/Hg HCO3 (21-28) mmol/L ABG pH (7.35-7.45) ABG Total CO2 (22-28) mmol.L ABG O2 Saturation (95-98) % ABG O2 Content (15-23) ML/dl ABG Base Excess (-2.0-3.0) mmol/L ABG Hemoglobin (11.7-17.4) g/dL ABG Carboxyhemoglobin (0.5-1.5) % POC ABG HHb (Measured) (0-5) % ABG Methemoglobin (0.0-3.0) % ABG O2 Capacity (16-24) mL/dl Hgb O2 Saturation (95.0-98.0) % FiO2 % Crit Value Called To Crit Value Called By Blood Gas Notified Time Sodium (132-148) mmol/L Potassium (3.6-5.0) mmol/L Chloride (98-107) mmol/L Carbon Dioxide (21-33) mmol/L Anion Gap (10-20) BUN (7-21) mg/dL Creatinine (0.7-1.2) mg/dl Est GFR ( Amer) Est GFR (Non-Af Amer) POC Glucose (mg/dL) 176 H 187 H 230 H (65-110) mg/dL Random Glucose (70-110) mg/dL Calcium (8.4-10.5) mg/dL Total Bilirubin (0.2-1.3) mg/dL AST (14-36) U/L ALT (7-56) U/L Alkaline Phosphatase (38-126) U/L Total Protein (5.8-8.3) g/dL Albumin (3.0-4.8) g/dL Globulin gm/dL Albumin/Globulin Ratio (1.1-1.8) 10/29/18 10/29/18 10/29/18 Range/Units 22:06 21:06 20:09 WBC (4.5-11.0) 10^3/uL RBC (3.5-6.1) 10^6/uL Hgb (12.0-16.0) g/dL Hct (36.0-48.0) % MCV (80.0-105.0) fl MCH (25.0-35.0) pg MCHC (31.0-37.0) g/dl RDW (11.5-14.5) % Plt Count (120.0-450.0) 10^3/uL Neut % (Auto) (50.0-68.0) % Lymph % (Auto) (22.0-35.0) % [place] % (Auto) (1.0-6.0) % Eos % (Auto) (1.5-5.0) % Baso % (Auto) (0.0-3.0) % Lymph # (Auto) (1.2-3.4) [place] # (Auto) (0.1-0.6) Eos # (Auto) (0.0-0.7) Baso # (Auto) (0.0-2.0) K/mm3 Absolute Neuts (auto) (1.4-6.5) pCO2 (35-45) mm/Hg pO2 (80-100) mm/Hg HCO3 (21-28) mmol/L ABG pH (7.35-7.45) ABG Total CO2 (22-28) mmol.L ABG O2 Saturation (95-98) % ABG O2 Content (15-23) ML/dl ABG Base Excess (-2.0-3.0) mmol/L ABG Hemoglobin (11.7-17.4) g/dL ABG Carboxyhemoglobin (0.5-1.5) % POC ABG HHb (Measured) (0-5) % ABG Methemoglobin (0.0-3.0) % ABG O2 Capacity (16-24) mL/dl Hgb O2 Saturation (95.0-98.0) % FiO2 % Crit Value Called To Crit Value Called By Blood Gas Notified Time Sodium (132-148) mmol/L Potassium (3.6-5.0) mmol/L Chloride (98-107) mmol/L Carbon Dioxide (21-33) mmol/L Anion Gap (10-20) BUN (7-21) mg/dL Creatinine (0.7-1.2) mg/dl Est GFR ( Amer) Est GFR (Non-Af Amer) POC Glucose (mg/dL) 225 H 242 H 297 H (65-110) mg/dL Random Glucose (70-110) mg/dL Calcium (8.4-10.5) mg/dL Total Bilirubin (0.2-1.3) mg/dL AST (14-36) U/L ALT (7-56) U/L Alkaline Phosphatase (38-126) U/L Total Protein (5.8-8.3) g/dL Albumin (3.0-4.8) g/dL Globulin gm/dL Albumin/Globulin Ratio (1.1-1.8) 10/29/18 10/29/18 10/29/18 Range/Units 18:58 18:09 15:33 WBC (4.5-11.0) 10^3/uL RBC (3.5-6.1) 10^6/uL Hgb (12.0-16.0) g/dL Hct (36.0-48.0) % MCV (80.0-105.0) fl MCH (25.0-35.0) pg MCHC (31.0-37.0) g/dl RDW (11.5-14.5) % Plt Count (120.0-450.0) 10^3/uL Neut % (Auto) (50.0-68.0) % Lymph % (Auto) (22.0-35.0) % [place] % (Auto) (1.0-6.0) % Eos % (Auto) (1.5-5.0) % Baso % (Auto) (0.0-3.0) % Lymph # (Auto) (1.2-3.4) [place] # (Auto) (0.1-0.6) Eos # (Auto) (0.0-0.7) Baso # (Auto) (0.0-2.0) K/mm3 Absolute Neuts (auto) (1.4-6.5) pCO2 (35-45) mm/Hg pO2 (80-100) mm/Hg HCO3 (21-28) mmol/L ABG pH (7.35-7.45) ABG Total CO2 (22-28) mmol.L ABG O2 Saturation (95-98) % ABG O2 Content (15-23) ML/dl ABG Base Excess (-2.0-3.0) mmol/L ABG Hemoglobin (11.7-17.4) g/dL ABG Carboxyhemoglobin (0.5-1.5) % POC ABG HHb (Measured) (0-5) % ABG Methemoglobin (0.0-3.0) % ABG O2 Capacity (16-24) mL/dl Hgb O2 Saturation (95.0-98.0) % FiO2 % Crit Value Called To Crit Value Called By Blood Gas Notified Time Sodium (132-148) mmol/L Potassium (3.6-5.0) mmol/L Chloride (98-107) mmol/L Carbon Dioxide (21-33) mmol/L Anion Gap (10-20) BUN (7-21) mg/dL Creatinine (0.7-1.2) mg/dl Est GFR ( Amer) Est GFR (Non-Af Amer) POC Glucose (mg/dL) 316 H 344 H 345 H (65-110) mg/dL Random Glucose (70-110) mg/dL Calcium (8.4-10.5) mg/dL Total Bilirubin (0.2-1.3) mg/dL AST (14-36) U/L ALT (7-56) U/L Alkaline Phosphatase (38-126) U/L Total Protein (5.8-8.3) g/dL Albumin (3.0-4.8) g/dL Globulin gm/dL Albumin/Globulin Ratio (1.1-1.8) 10/29/18 10/29/18 10/29/18 Range/Units 11:09 07:09 05:35 WBC (4.5-11.0) 10^3/uL RBC (3.5-6.1) 10^6/uL Hgb (12.0-16.0) g/dL Hct (36.0-48.0) % MCV (80.0-105.0) fl MCH (25.0-35.0) pg MCHC (31.0-37.0) g/dl RDW (11.5-14.5) % Plt Count (120.0-450.0) 10^3/uL Neut % (Auto) (50.0-68.0) % Lymph % (Auto) (22.0-35.0) % [place] % (Auto) (1.0-6.0) % Eos % (Auto) (1.5-5.0) % Baso % (Auto) (0.0-3.0) % Lymph # (Auto) (1.2-3.4) [place] # (Auto) (0.1-0.6) Eos # (Auto) (0.0-0.7) Baso # (Auto) (0.0-2.0) K/mm3 Absolute Neuts (auto) (1.4-6.5) pCO2 (35-45) mm/Hg pO2 (80-100) mm/Hg HCO3 (21-28) mmol/L ABG pH (7.35-7.45) ABG Total CO2 (22-28) mmol.L ABG O2 Saturation (95-98) % ABG O2 Content (15-23) ML/dl ABG Base Excess (-2.0-3.0) mmol/L ABG Hemoglobin (11.7-17.4) g/dL ABG Carboxyhemoglobin (0.5-1.5) % POC ABG HHb (Measured) (0-5) % ABG Methemoglobin (0.0-3.0) % ABG O2 Capacity (16-24) mL/dl Hgb O2 Saturation (95.0-98.0) % FiO2 % Crit Value Called To Crit Value Called By Blood Gas Notified Time Sodium 148 (132-148) mmol/L Potassium 4.8 (3.6-5.0) mmol/L Chloride 110 H (98-107) mmol/L Carbon Dioxide 29 (21-33) mmol/L Anion Gap 14 (10-20) BUN 112 H (7-21) mg/dL Creatinine 3.2 H (0.7-1.2) mg/dl Est GFR ( Amer) 17 Est GFR (Non-Af Amer) 14 POC Glucose (mg/dL) 396 H 355 H (65-110) mg/dL Random Glucose 366 H* D (70-110) mg/dL Calcium 9.6 (8.4-10.5) mg/dL Total Bilirubin 0.5 (0.2-1.3) mg/dL AST 20 (14-36) U/L ALT 16 (7-56) U/L Alkaline Phosphatase 70 (38-126) U/L Total Protein 7.2 (5.8-8.3) g/dL Albumin 3.8 (3.0-4.8) g/dL Globulin 3.4 gm/dL Albumin/Globulin Ratio 1.1 (1.1-1.8) 10/29/18 Range/Units 05:35 WBC 8.8 D (4.5-11.0) 10^3/uL RBC 3.85 (3.5-6.1) 10^6/uL Hgb 10.2 L (12.0-16.0) g/dL Hct 35.0 L (36.0-48.0) % MCV 90.9 (80.0-105.0) fl MCH 26.5 (25.0-35.0) pg MCHC 29.1 L (31.0-37.0) g/dl RDW 16.5 H (11.5-14.5) % Plt Count 189 (120.0-450.0) 10^3/uL Neut % (Auto) 92.9 H (50.0-68.0) % Lymph % (Auto) 4.3 L (22.0-35.0) % [place] % (Auto) 2.8 (1.0-6.0) % Eos % (Auto) 0.0 L (1.5-5.0) % Baso % (Auto) 0.0 (0.0-3.0) % Lymph # (Auto) 0.4 L (1.2-3.4) [place] # (Auto) 0.3 (0.1-0.6) Eos # (Auto) 0.0 (0.0-0.7) Baso # (Auto) 0.00 (0.0-2.0) K/mm3 Absolute Neuts (auto) 8.18 H (1.4-6.5) pCO2 (35-45) mm/Hg pO2 (80-100) mm/Hg HCO3 (21-28) mmol/L ABG pH (7.35-7.45) ABG Total CO2 (22-28) mmol.L ABG O2 Saturation (95-98) % ABG O2 Content (15-23) ML/dl ABG Base Excess (-2.0-3.0) mmol/L ABG Hemoglobin (11.7-17.4) g/dL ABG Carboxyhemoglobin (0.5-1.5) % POC ABG HHb (Measured) (0-5) % ABG Methemoglobin (0.0-3.0) % ABG O2 Capacity (16-24) mL/dl Hgb O2 Saturation (95.0-98.0) % FiO2 % Crit Value Called To Crit Value Called By Blood Gas Notified Time Sodium (132-148) mmol/L Potassium (3.6-5.0) mmol/L Chloride (98-107) mmol/L Carbon Dioxide (21-33) mmol/L Anion Gap (10-20) BUN (7-21) mg/dL Creatinine (0.7-1.2) mg/dl Est GFR ( Amer) Est GFR (Non-Af Amer) POC Glucose (mg/dL) (65-110) mg/dL Random Glucose (70-110) mg/dL Calcium (8.4-10.5) mg/dL Total Bilirubin (0.2-1.3) mg/dL AST (14-36) U/L ALT (7-56) U/L Alkaline Phosphatase (38-126) U/L Total Protein (5.8-8.3) g/dL Albumin (3.0-4.8) g/dL Globulin gm/dL Albumin/Globulin Ratio (1.1-1.8) Laboratory Results - last 24 hr 10/29/18 10/29/18 10/29/18 05:35 05:35 07:09 WBC 8.8 D RBC 3.85 Hgb 10.2 L Hct 35.0 L MCV 90.9 MCH 26.5 MCHC 29.1 L RDW 16.5 H Plt Count 189 Neut % (Auto) 92.9 H Lymph % (Auto) 4.3 L [place] % (Auto) 2.8 Eos % (Auto) 0.0 L Baso % (Auto) 0.0 Lymph # (Auto) 0.4 L [place] # (Auto) 0.3 Eos # (Auto) 0.0 Baso # (Auto) 0.00 Absolute Neuts (auto) 8.18 H pCO2 pO2 HCO3 ABG pH ABG Total CO2 ABG O2 Saturation ABG O2 Content ABG Base Excess ABG Hemoglobin ABG Carboxyhemoglobin POC ABG HHb (Measured) ABG Methemoglobin ABG O2 Capacity Hgb O2 Saturation FiO2 Crit Value Called To Crit Value Called By Blood Gas Notified Time Sodium 148 Potassium 4.8 Chloride 110 H Carbon Dioxide 29 Anion Gap 14 BUN 112 H Creatinine 3.2 H Est GFR ( Amer) 17 Est GFR (Non-Af Amer) 14 POC Glucose (mg/dL) 355 H Random Glucose 366 H* D Calcium 9.6 Total Bilirubin 0.5 AST 20 ALT 16 Alkaline Phosphatase 70 Total Protein 7.2 Albumin 3.8 Globulin 3.4 Albumin/Globulin Ratio 1.1 10/29/18 10/29/18 10/29/18 11:09 15:33 18:09 WBC RBC Hgb Hct MCV MCH MCHC RDW Plt Count Neut % (Auto) Lymph % (Auto) [place] % (Auto) Eos % (Auto) Baso % (Auto) Lymph # (Auto) [place] # (Auto) Eos # (Auto) Baso # (Auto) Absolute Neuts (auto) pCO2 pO2 HCO3 ABG pH ABG Total CO2 ABG O2 Saturation ABG O2 Content ABG Base Excess ABG Hemoglobin ABG Carboxyhemoglobin POC ABG HHb (Measured) ABG Methemoglobin ABG O2 Capacity Hgb O2 Saturation FiO2 Crit Value Called To Crit Value Called By Blood Gas Notified Time Sodium Potassium Chloride Carbon Dioxide Anion Gap BUN Creatinine Est GFR ( Amer) Est GFR (Non-Af Amer) POC Glucose (mg/dL) 396 H 345 H 344 H Random Glucose Calcium Total Bilirubin AST ALT Alkaline Phosphatase Total Protein Albumin Globulin Albumin/Globulin Ratio 10/29/18 10/29/18 10/29/18 18:58 20:09 21:06 WBC RBC Hgb Hct MCV MCH MCHC RDW Plt Count Neut % (Auto) Lymph % (Auto) [place] % (Auto) Eos % (Auto) Baso % (Auto) Lymph # (Auto) [place] # (Auto) Eos # (Auto) Baso # (Auto) Absolute Neuts (auto) pCO2 pO2 HCO3 ABG pH ABG Total CO2 ABG O2 Saturation ABG O2 Content ABG Base Excess ABG Hemoglobin ABG Carboxyhemoglobin POC ABG HHb (Measured) ABG Methemoglobin ABG O2 Capacity Hgb O2 Saturation FiO2 Crit Value Called To Crit Value Called By Blood Gas Notified Time Sodium Potassium Chloride Carbon Dioxide Anion Gap BUN Creatinine Est GFR ( Amer) Est GFR (Non-Af Amer) POC Glucose (mg/dL) 316 H 297 H 242 H Random Glucose Calcium Total Bilirubin AST ALT Alkaline Phosphatase Total Protein Albumin Globulin Albumin/Globulin Ratio 10/29/18 10/29/18 10/29/18 22:06 23:06 23:51 WBC RBC Hgb Hct MCV MCH MCHC RDW Plt Count Neut % (Auto) Lymph % (Auto) [place] % (Auto) Eos % (Auto) Baso % (Auto) Lymph # (Auto) [place] # (Auto) Eos # (Auto) Baso # (Auto) Absolute Neuts (auto) pCO2 pO2 HCO3 ABG pH ABG Total CO2 ABG O2 Saturation ABG O2 Content ABG Base Excess ABG Hemoglobin ABG Carboxyhemoglobin POC ABG HHb (Measured) ABG Methemoglobin ABG O2 Capacity Hgb O2 Saturation FiO2 Crit Value Called To Crit Value Called By Blood Gas Notified Time Sodium Potassium Chloride Carbon Dioxide Anion Gap BUN Creatinine Est GFR ( Amer) Est GFR (Non-Af Amer) POC Glucose (mg/dL) 225 H 230 H 187 H Random Glucose Calcium Total Bilirubin AST ALT Alkaline Phosphatase Total Protein Albumin Globulin Albumin/Globulin Ratio 10/30/18 10/30/18 10/30/18 01:04 02:12 03:53 WBC RBC Hgb Hct MCV MCH MCHC RDW Plt Count Neut % (Auto) Lymph % (Auto) [place] % (Auto) Eos % (Auto) Baso % (Auto) Lymph # (Auto) [place] # (Auto) Eos # (Auto) Baso # (Auto) Absolute Neuts (auto) pCO2 pO2 HCO3 ABG pH ABG Total CO2 ABG O2 Saturation ABG O2 Content ABG Base Excess ABG Hemoglobin ABG Carboxyhemoglobin POC ABG HHb (Measured) ABG Methemoglobin ABG O2 Capacity Hgb O2 Saturation FiO2 Crit Value Called To Crit Value Called By Blood Gas Notified Time Sodium Potassium Chloride Carbon Dioxide Anion Gap BUN Creatinine Est GFR ( Amer) Est GFR (Non-Af Amer) POC Glucose (mg/dL) 176 H 169 H 142 H Random Glucose Calcium Total Bilirubin AST ALT Alkaline Phosphatase Total Protein Albumin Globulin Albumin/Globulin Ratio 10/30/18 10/30/18 10/30/18 05:10 05:40 06:10 WBC 12.6 H D RBC 3.93 Hgb 10.5 L Hct 35.9 L MCV 91.3 MCH 26.7 MCHC 29.2 L RDW 16.3 H Plt Count 187 Neut % (Auto) 92.6 H Lymph % (Auto) 6.6 L [place] % (Auto) 0.8 L Eos % (Auto) 0.0 L Baso % (Auto) 0.0 Lymph # (Auto) 0.8 L [place] # (Auto) 0.1 Eos # (Auto) 0.0 Baso # (Auto) 0.00 Absolute Neuts (auto) 11.65 H pCO2 63 H pO2 113.0 H HCO3 29.6 H ABG pH 7.28 L ABG Total CO2 31.5 H ABG O2 Saturation 99.6 H ABG O2 Content 13.6 L ABG Base Excess 1.9 ABG Hemoglobin 9.9 L ABG Carboxyhemoglobin 2.2 H POC ABG HHb (Measured) 0.4 ABG Methemoglobin 0.8 ABG O2 Capacity 13.7 L Hgb O2 Saturation 96.6 FiO2 28.0 Crit Value Called To Rhina arguelles Crit Value Called By Sixto Blood Gas Notified Time 630 Sodium Potassium Chloride Carbon Dioxide Anion Gap BUN Creatinine Est GFR ( Amer) Est GFR (Non-Af Amer) POC Glucose (mg/dL) 163 H Random Glucose Calcium Total Bilirubin AST ALT Alkaline Phosphatase Total Protein Albumin Globulin Albumin/Globulin Ratio 10/30/18 06:14 WBC RBC Hgb Hct MCV MCH MCHC RDW Plt Count Neut % (Auto) Lymph % (Auto) [place] % (Auto) Eos % (Auto) Baso % (Auto) Lymph # (Auto) [place] # (Auto) Eos # (Auto) Baso # (Auto) Absolute Neuts (auto) pCO2 pO2 HCO3 ABG pH ABG Total CO2 ABG O2 Saturation ABG O2 Content ABG Base Excess ABG Hemoglobin ABG Carboxyhemoglobin POC ABG HHb (Measured) ABG Methemoglobin ABG O2 Capacity Hgb O2 Saturation FiO2 Crit Value Called To Crit Value Called By Blood Gas Notified Time Sodium Potassium Chloride Carbon Dioxide Anion Gap BUN Creatinine Est GFR ( Amer) Est GFR (Non-Af Amer) POC Glucose (mg/dL) 140 H Random Glucose Calcium Total Bilirubin AST ALT Alkaline Phosphatase Total Protein Albumin Globulin Albumin/Globulin Ratio Radiology Impressions: Radiology Impressions Chest X-Ray 10/29/18 06:00 IMPRESSION: Interval mild improvement in pulmonary venous congestion. No other significant interval change. Fingerstick Blood Sugar Results: 344 Review of Systems - EENT Eyes: absent: Change in Vision - Cardiovascular Cardiovascular: absent: Chest Pain, Diaphoresis, Dyspnea - Respiratory Respiratory: absent: Cough, Dyspnea - Gastrointestinal Gastrointestinal: absent: Abdominal Pain, Bloating, Hematemesis - Genitourinary Genitourinary: absent: Dysuria, Flank Pain - Neurological Neurological: absent: Confusion, Dizziness, Numbness, Headaches Critical Care Progress Note - Nutrition Nutrition: Nutrition Category Date Time Status Pureed [Dysphagia/Modified Consistency Diet] [DIET] Diets 10/28/18 Lunch Ordered Assessment/Plan - Assessment and Plan (Free Text) Assessment: 73 y/o female admitted to ICU for hypertensive emergency complicated by ventilator dependent hypercapnic respiratory failure in the setting of pulmonary HTN and chronic COPD Plan: Neuro: -AAO x3 -maintain normthermia Cardio: -resolved hyertensive emergency -continue home lipitor, metoprolol -continue verapamil for HR >110 -hold diuretics for diastolic dysfunction -pacemaker interrogation recently done for paroxysmal Afib -continue eliquis 2.5 mg bid -continue amiodarone 400 TID as per cardio Pulm: -chronic COPD and pulmonary HTN -AB.28/63/113/29 improving with no A-a gradient -cntinue O2 NC 1L. use compressed air instead of O2 for neb treatment -clinically improving, asymptomatic -daily CXR showing improvement -BiPAP as needed -continue sildenafil 20 mg bid -consevative fluid and oxygen management -continue meropenem for RLL pneumonia -continue budesonide, xopenex, montelukast for COPD GI: -CT Abd/Pelvis reveals perinephric changes L>R. Potential pyelonephritis -GI following /renal: -UCx: pseudomonas UTI -afebrile, no leukocytosis -continue meropenem Renal: -LEIGHA due to cardiorenal syndrome -hold diuretics/nehrotoxic drugs Endo: -IDDM -accucheck -BG 200s today -d/c insulin drip and switch back to ISS-high -solu-medrol tappered to 20 mg q12 Prophylaxis: PPI SCD Diet: pureed Dispo: Patient is clinically stable for transfer to telemetry Case reviewed and discussed with attending Dr Santiago <Vitaliy Santiago - Last Filed: 10/30/18 18:04> CCU Objective - Vital Signs / Intake & Output Vital Signs (Last 4 hours): Vital Signs Pulse Resp BP Pulse Ox 10/30/18 17:51 60 10/30/18 17:28 60 165/62 H 10/30/18 17:25 61 165/62 H 10/30/18 16:35 60 40 H 10/30/18 16:34 62 25 H 10/30/18 16:33 61 30 H 10/30/18 16:30 60 34 H 10/30/18 16:29 62 17 10/30/18 16:28 61 21 10/30/18 16:27 61 22 10/30/18 16:26 61 24 03/13/19 16:20 61 29 H 98 10/30/18 16:10 60 17 97 10/30/18 16:00 64 18 165/62 H 99 10/30/18 15:50 60 22 99 10/30/18 15:40 60 28 H 98 10/30/18 15:30 60 21 98 10/30/18 15:20 62 52 H 96 10/30/18 15:10 61 19 96 10/30/18 15:00 60 16 140/45 L 95 10/30/18 14:50 62 20 97 10/30/18 14:40 62 22 97 10/30/18 14:34 60 150/45 L 10/30/18 14:30 60 96 10/30/18 14:20 60 25 H 98 10/30/18 14:10 61 18 97 Intake and Output (Last 8hrs): Intake & Output 10/30/18 10/30/18 10/30/18 06:59 14:59 22:59 Intake Total 26 11 590 Output Total 800 Balance 26 11 -210 Intake: IV 26 11 110 Right Hand 110 Oral 480 Output: Urine 800 Urethral ([place]) 800 Other: Voiding Method Indwelling Catheter - Medications Active Medications: Active Medications Generic Name Dose Route Start Last Admin Trade Name Freq PRN Reason Stop Dose Admin Acetaminophen 650 mg 10/18/18 19:35 10/21/18 16:47 Tylenol 325mg Tab PO 650 mg Q6H PRN Administration Fever >100.4 F Albuterol/Ipratropium 3 ml 10/18/18 19:35 10/19/18 10:38 Duoneb 3 Mg/0.5 Mg (3 Ml) Ud IH 3 ml Q2H PRN Administration Shortness of Breath Amiodarone HCl 200 mg 10/31/18 10:00 Cordarone PO DAILY LINDA Amiodarone HCl 400 mg 10/29/18 14:00 10/30/18 17:25 Cordarone PO 10/30/18 23:59 400 mg TID LINDA Administration Apixaban 2.5 mg 10/18/18 19:30 10/30/18 17:27 Eliquis PO 2.5 mg BID LINDA Administration Protocol Atorvastatin Calcium 40 mg 10/19/18 10:00 10/30/18 10:33 Lipitor PO 40 mg DAILY LINDA Administration Budesonide 0.5 mg 10/22/18 08:00 10/30/18 07:15 Pulmicort Respules IH 0.5 mg [id number] LINDA Administration Dextrose 0 ml 10/29/18 17:55 Dextrose 50% Inj IV STAT PRN Hypoglycemia Protocol Protocol Folic Acid 1 mg 10/19/18 10:00 10/30/18 09:22 Folic Acid PO 1 mg DAILY LINDA Administration Hydralazine HCl 50 mg 10/22/18 18:00 10/30/18 17:28 Apresoline PO 50 mg BID LINDA Administration Hydralazine HCl 10 mg 10/23/18 17:33 10/28/18 15:50 Apresoline IVP 10 mg Q4 PRN Administration SBP > 180 Nicardipine HCl 20 mg in 200 mls @ 50 mls/hr 10/23/18 12:16 10/24/18 07:15 Cardene Iv Premix IV 0 mg/hr .Q4H PRN 0 mls/hr TITRATE PER MD ORDER Titration Protocol 5 MG/HR Midazolam 100 mg/100ml in NS 100 mg in 100 mls @ 1 mls/hr 10/23/18 14:09 10/25/18 06:53 Midazolam 100 Mg/100ml In Ns IV 0 mg/hr .Q24H PRN 0 mls/hr Sedation Titration Protocol 1 MG/HR Meropenem 250 mg/ Sodium 100 mls @ 100 mls/hr 10/24/18 10:15 10/30/18 09:24 Chloride IVPB 10/31/18 10:16 100 mls/hr Q12H LINDA Administration Protocol Dextrose 1,000 mls @ 0 mls/hr 10/29/18 17:55 Dextrose 5% In Water 1000 Ml IV .Q0M PRN Hypoglycemia Protocol Protocol Per Protocol Insulin Human Regular 100 100 mls @ 6 mls/hr 10/29/18 17:55 10/30/18 11:00 units/ Sodium Chloride IV 3 units/hr .[id number] PRN 3 mls/hr TITRATE PER MD ORDER Titration Protocol 6 UNITS/HR Insulin Human Regular 0 units 10/30/18 16:30 10/30/18 15:30 Humulin R High SC 7 units ACHS LINDA Administration Protocol Levalbuterol HCl 1.25 mg 10/18/18 20:00 10/30/18 13:17 Xopenex IH 1.25 mg [id number] LINDA Administration Methylprednisolone 20 mg 10/30/18 08:02 10/30/18 09:20 Solu-Medrol IVP 20 mg Q12 LINDA Administration Metoprolol Tartrate 50 mg 10/18/18 19:30 10/30/18 17:25 Lopressor PO 50 mg BID LINDA Administration Montelukast Sodium 10 mg 10/18/18 22:00 10/29/18 23:00 Singulair PO 10 mg HS LINDA Administration Ondansetron HCl 4 mg 10/18/18 19:35 10/19/18 07:55 Zofran Inj IVP 4 mg Q6H PRN Administration Nausea/Vomiting Pantoprazole Sodium 40 mg 10/29/18 06:00 10/30/18 08:44 Protonix Ec Tab PO 40 mg 0600 LINDA Administration Polyethylene Glycol 17 gm 10/25/18 18:00 10/30/18 17:43 Miralax PO Not Given BID LINDA Pregabalin 75 mg 10/18/18 19:30 10/24/18 09:45 Lyrica PO 75 mg BID LINDA Administration Sildenafil Citrate 20 mg 10/19/18 10:00 10/30/18 17:44 Revatio PO 20 mg BID LINDA Administration Verapamil HCl 2.5 mg 10/24/18 12:34 10/26/18 02:12 Verapamil Inj IVP 2.5 mg Q6H PRN Administration for Heart rate >120 Verapamil HCl 240 mg 10/30/18 10:00 10/30/18 10:33 Calan Sr Tab PO 240 mg DAILY LINDA Administration Vitamin A 1 ea 10/26/18 10:00 10/30/18 17:43 Vitamin A & D Oint [facility] [place] TOP 1 ea BID LINDA Administration - Patient Studies Lab Studies: Lab Studies 10/30/18 10/30/18 10/30/18 Range/Units 14:06 12:24 11:28 WBC (4.5-11.0) 10^3/uL RBC (3.5-6.1) 10^6/uL Hgb (12.0-16.0) g/dL Hct (36.0-48.0) % MCV (80.0-105.0) fl MCH (25.0-35.0) pg MCHC (31.0-37.0) g/dl RDW (11.5-14.5) % Plt Count (120.0-450.0) 10^3/uL Neut % (Auto) (50.0-68.0) % Lymph % (Auto) (22.0-35.0) % [place] % (Auto) (1.0-6.0) % Eos % (Auto) (1.5-5.0) % Baso % (Auto) (0.0-3.0) % Lymph # (Auto) (1.2-3.4) [place] # (Auto) (0.1-0.6) Eos # (Auto) (0.0-0.7) Baso # (Auto) (0.0-2.0) K/mm3 Absolute Neuts (auto) (1.4-6.5) Differential Comment pCO2 (35-45) mm/Hg pO2 (80-100) mm/Hg HCO3 (21-28) mmol/L ABG pH (7.35-7.45) ABG Total CO2 (22-28) mmol.L ABG O2 Saturation (95-98) % ABG O2 Content (15-23) ML/dl ABG Base Excess (-2.0-3.0) mmol/L ABG Hemoglobin (11.7-17.4) g/dL ABG Carboxyhemoglobin (0.5-1.5) % POC ABG HHb (Measured) (0-5) % ABG Methemoglobin (0.0-3.0) % ABG O2 Capacity (16-24) mL/dl Hgb O2 Saturation (95.0-98.0) % FiO2 % Crit Value Called To Crit Value Called By Blood Gas Notified Time Sodium (132-148) mmol/L Potassium (3.6-5.0) mmol/L Chloride (98-107) mmol/L Carbon Dioxide (21-33) mmol/L Anion Gap (10-20) BUN (7-21) mg/dL Creatinine (0.7-1.2) mg/dl Est GFR ( Amer) Est GFR (Non-Af Amer) POC Glucose (mg/dL) 284 H 294 H 262 H (65-110) mg/dL Random Glucose (70-110) mg/dL Calcium (8.4-10.5) mg/dL Phosphorus (2.5-4.5) mg/dL Magnesium (1.7-2.2) mg/dL Total Bilirubin (0.2-1.3) mg/dL AST (14-36) U/L ALT (7-56) U/L Alkaline Phosphatase (38-126) U/L Total Protein (5.8-8.3) g/dL Albumin (3.0-4.8) g/dL Globulin gm/dL Albumin/Globulin Ratio (1.1-1.8) 10/30/18 10/30/18 10/30/18 Range/Units 09:52 09:22 08:01 WBC (4.5-11.0) 10^3/uL RBC (3.5-6.1) 10^6/uL Hgb (12.0-16.0) g/dL Hct (36.0-48.0) % MCV (80.0-105.0) fl MCH (25.0-35.0) pg MCHC (31.0-37.0) g/dl RDW (11.5-14.5) % Plt Count (120.0-450.0) 10^3/uL Neut % (Auto) (50.0-68.0) % Lymph % (Auto) (22.0-35.0) % [place] % (Auto) (1.0-6.0) % Eos % (Auto) (1.5-5.0) % Baso % (Auto) (0.0-3.0) % Lymph # (Auto) (1.2-3.4) [place] # (Auto) (0.1-0.6) Eos # (Auto) (0.0-0.7) Baso # (Auto) (0.0-2.0) K/mm3 Absolute Neuts (auto) (1.4-6.5) Differential Comment pCO2 (35-45) mm/Hg pO2 (80-100) mm/Hg HCO3 (21-28) mmol/L ABG pH (7.35-7.45) ABG Total CO2 (22-28) mmol.L ABG O2 Saturation (95-98) % ABG O2 Content (15-23) ML/dl ABG Base Excess (-2.0-3.0) mmol/L ABG Hemoglobin (11.7-17.4) g/dL ABG Carboxyhemoglobin (0.5-1.5) % POC ABG HHb (Measured) (0-5) % ABG Methemoglobin (0.0-3.0) % ABG O2 Capacity (16-24) mL/dl Hgb O2 Saturation (95.0-98.0) % FiO2 % Crit Value Called To Crit Value Called By Blood Gas Notified Time Sodium (132-148) mmol/L Potassium (3.6-5.0) mmol/L Chloride (98-107) mmol/L Carbon Dioxide (21-33) mmol/L Anion Gap (10-20) BUN (7-21) mg/dL Creatinine (0.7-1.2) mg/dl Est GFR ( Amer) Est GFR (Non-Af Amer) POC Glucose (mg/dL) 235 H 219 H 160 H (65-110) mg/dL Random Glucose (70-110) mg/dL Calcium (8.4-10.5) mg/dL Phosphorus (2.5-4.5) mg/dL Magnesium (1.7-2.2) mg/dL Total Bilirubin (0.2-1.3) mg/dL AST (14-36) U/L ALT (7-56) U/L Alkaline Phosphatase (38-126) U/L Total Protein (5.8-8.3) g/dL Albumin (3.0-4.8) g/dL Globulin gm/dL Albumin/Globulin Ratio (1.1-1.8) 10/30/18 10/30/18 10/30/18 Range/Units 07:10 06:14 06:10 WBC (4.5-11.0) 10^3/uL RBC (3.5-6.1) 10^6/uL Hgb (12.0-16.0) g/dL Hct (36.0-48.0) % MCV (80.0-105.0) fl MCH (25.0-35.0) pg MCHC (31.0-37.0) g/dl RDW (11.5-14.5) % Plt Count (120.0-450.0) 10^3/uL Neut % (Auto) (50.0-68.0) % Lymph % (Auto) (22.0-35.0) % [place] % (Auto) (1.0-6.0) % Eos % (Auto) (1.5-5.0) % Baso % (Auto) (0.0-3.0) % Lymph # (Auto) (1.2-3.4) [place] # (Auto) (0.1-0.6) Eos # (Auto) (0.0-0.7) Baso # (Auto) (0.0-2.0) K/mm3 Absolute Neuts (auto) (1.4-6.5) Differential Comment pCO2 63 H (35-45) mm/Hg pO2 113.0 H (80-100) mm/Hg HCO3 29.6 H (21-28) mmol/L ABG pH 7.28 L (7.35-7.45) ABG Total CO2 31.5 H (22-28) mmol.L ABG O2 Saturation 99.6 H (95-98) % ABG O2 Content 13.6 L (15-23) ML/dl ABG Base Excess 1.9 (-2.0-3.0) mmol/L ABG Hemoglobin 9.9 L (11.7-17.4) g/dL ABG Carboxyhemoglobin 2.2 H (0.5-1.5) % POC ABG HHb (Measured) 0.4 (0-5) % ABG Methemoglobin 0.8 (0.0-3.0) % ABG O2 Capacity 13.7 L (16-24) mL/dl Hgb O2 Saturation 96.6 (95.0-98.0) % FiO2 28.0 % Crit Value Called To Rhina arguelles Crit Value Called By Sixto Blood Gas Notified Time 630 Sodium (132-148) mmol/L Potassium (3.6-5.0) mmol/L Chloride (98-107) mmol/L Carbon Dioxide (21-33) mmol/L Anion Gap (10-20) BUN (7-21) mg/dL Creatinine (0.7-1.2) mg/dl Est GFR ( Amer) Est GFR (Non-Af Amer) POC Glucose (mg/dL) 146 H 140 H (65-110) mg/dL Random Glucose (70-110) mg/dL Calcium (8.4-10.5) mg/dL Phosphorus (2.5-4.5) mg/dL Magnesium (1.7-2.2) mg/dL Total Bilirubin (0.2-1.3) mg/dL AST (14-36) U/L ALT (7-56) U/L Alkaline Phosphatase (38-126) U/L Total Protein (5.8-8.3) g/dL Albumin (3.0-4.8) g/dL Globulin gm/dL Albumin/Globulin Ratio (1.1-1.8) 10/30/18 10/30/18 10/30/18 Range/Units 05:40 05:40 05:10 WBC 12.6 H D (4.5-11.0) 10^3/uL RBC 3.93 (3.5-6.1) 10^6/uL Hgb 10.5 L (12.0-16.0) g/dL Hct 35.9 L (36.0-48.0) % MCV 91.3 (80.0-105.0) fl MCH 26.7 (25.0-35.0) pg MCHC 29.2 L (31.0-37.0) g/dl RDW 16.3 H (11.5-14.5) % Plt Count 187 (120.0-450.0) 10^3/uL Neut % (Auto) 92.6 H (50.0-68.0) % Lymph % (Auto) 6.6 L (22.0-35.0) % [place] % (Auto) 0.8 L (1.0-6.0) % Eos % (Auto) 0.0 L (1.5-5.0) % Baso % (Auto) 0.0 (0.0-3.0) % Lymph # (Auto) 0.8 L (1.2-3.4) [place] # (Auto) 0.1 (0.1-0.6) Eos # (Auto) 0.0 (0.0-0.7) Baso # (Auto) 0.00 (0.0-2.0) K/mm3 Absolute Neuts (auto) 11.65 H (1.4-6.5) Differential Comment pCO2 (35-45) mm/Hg pO2 (80-100) mm/Hg HCO3 (21-28) mmol/L ABG pH (7.35-7.45) ABG Total CO2 (22-28) mmol.L ABG O2 Saturation (95-98) % ABG O2 Content (15-23) ML/dl ABG Base Excess (-2.0-3.0) mmol/L ABG Hemoglobin (11.7-17.4) g/dL ABG Carboxyhemoglobin (0.5-1.5) % POC ABG HHb (Measured) (0-5) % ABG Methemoglobin (0.0-3.0) % ABG O2 Capacity (16-24) mL/dl Hgb O2 Saturation (95.0-98.0) % FiO2 % Crit Value Called To Crit Value Called By Blood Gas Notified Time Sodium 149 H (132-148) mmol/L Potassium 5.4 H (3.6-5.0) mmol/L Chloride 112 H (98-107) mmol/L Carbon Dioxide 31 (21-33) mmol/L Anion Gap 12 (10-20) BUN > 120 H* (7-21) mg/dL Creatinine 3.0 H (0.7-1.2) mg/dl Est GFR ( Amer) 18 Est GFR (Non-Af Amer) 15 POC Glucose (mg/dL) 163 H (65-110) mg/dL Random Glucose 170 H (70-110) mg/dL Calcium 9.6 (8.4-10.5) mg/dL Phosphorus 4.4 (2.5-4.5) mg/dL Magnesium 2.9 H (1.7-2.2) mg/dL Total Bilirubin 0.5 (0.2-1.3) mg/dL AST 20 (14-36) U/L ALT 12 (7-56) U/L Alkaline Phosphatase 61 (38-126) U/L Total Protein 7.1 (5.8-8.3) g/dL Albumin 3.7 (3.0-4.8) g/dL Globulin 3.5 gm/dL Albumin/Globulin Ratio 1.1 (1.1-1.8) 10/30/18 10/30/18 10/30/18 Range/Units 03:53 02:12 01:04 WBC (4.5-11.0) 10^3/uL RBC (3.5-6.1) 10^6/uL Hgb (12.0-16.0) g/dL Hct (36.0-48.0) % MCV (80.0-105.0) fl MCH (25.0-35.0) pg MCHC (31.0-37.0) g/dl RDW (11.5-14.5) % Plt Count (120.0-450.0) 10^3/uL Neut % (Auto) (50.0-68.0) % Lymph % (Auto) (22.0-35.0) % [place] % (Auto) (1.0-6.0) % Eos % (Auto) (1.5-5.0) % Baso % (Auto) (0.0-3.0) % Lymph # (Auto) (1.2-3.4) [place] # (Auto) (0.1-0.6) Eos # (Auto) (0.0-0.7) Baso # (Auto) (0.0-2.0) K/mm3 Absolute Neuts (auto) (1.4-6.5) Differential Comment pCO2 (35-45) mm/Hg pO2 (80-100) mm/Hg HCO3 (21-28) mmol/L ABG pH (7.35-7.45) ABG Total CO2 (22-28) mmol.L ABG O2 Saturation (95-98) % ABG O2 Content (15-23) ML/dl ABG Base Excess (-2.0-3.0) mmol/L ABG Hemoglobin (11.7-17.4) g/dL ABG Carboxyhemoglobin (0.5-1.5) % POC ABG HHb (Measured) (0-5) % ABG Methemoglobin (0.0-3.0) % ABG O2 Capacity (16-24) mL/dl Hgb O2 Saturation (95.0-98.0) % FiO2 % Crit Value Called To Crit Value Called By Blood Gas Notified Time Sodium (132-148) mmol/L Potassium (3.6-5.0) mmol/L Chloride (98-107) mmol/L Carbon Dioxide (21-33) mmol/L Anion Gap (10-20) BUN (7-21) mg/dL Creatinine (0.7-1.2) mg/dl Est GFR ( Amer) Est GFR (Non-Af Amer) POC Glucose (mg/dL) 142 H 169 H 176 H (65-110) mg/dL Random Glucose (70-110) mg/dL Calcium (8.4-10.5) mg/dL Phosphorus (2.5-4.5) mg/dL Magnesium (1.7-2.2) mg/dL Total Bilirubin (0.2-1.3) mg/dL AST (14-36) U/L ALT (7-56) U/L Alkaline Phosphatase (38-126) U/L Total Protein (5.8-8.3) g/dL Albumin (3.0-4.8) g/dL Globulin gm/dL Albumin/Globulin Ratio (1.1-1.8) 10/29/18 10/29/18 10/29/18 Range/Units 23:51 23:06 22:06 WBC (4.5-11.0) 10^3/uL RBC (3.5-6.1) 10^6/uL Hgb (12.0-16.0) g/dL Hct (36.0-48.0) % MCV (80.0-105.0) fl MCH (25.0-35.0) pg MCHC (31.0-37.0) g/dl RDW (11.5-14.5) % Plt Count (120.0-450.0) 10^3/uL Neut % (Auto) (50.0-68.0) % Lymph % (Auto) (22.0-35.0) % [place] % (Auto) (1.0-6.0) % Eos % (Auto) (1.5-5.0) % Baso % (Auto) (0.0-3.0) % Lymph # (Auto) (1.2-3.4) [place] # (Auto) (0.1-0.6) Eos # (Auto) (0.0-0.7) Baso # (Auto) (0.0-2.0) K/mm3 Absolute Neuts (auto) (1.4-6.5) Differential Comment pCO2 (35-45) mm/Hg pO2 (80-100) mm/Hg HCO3 (21-28) mmol/L ABG pH (7.35-7.45) ABG Total CO2 (22-28) mmol.L ABG O2 Saturation (95-98) % ABG O2 Content (15-23) ML/dl ABG Base Excess (-2.0-3.0) mmol/L ABG Hemoglobin (11.7-17.4) g/dL ABG Carboxyhemoglobin (0.5-1.5) % POC ABG HHb (Measured) (0-5) % ABG Methemoglobin (0.0-3.0) % ABG O2 Capacity (16-24) mL/dl Hgb O2 Saturation (95.0-98.0) % FiO2 % Crit Value Called To Crit Value Called By Blood Gas Notified Time Sodium (132-148) mmol/L Potassium (3.6-5.0) mmol/L Chloride (98-107) mmol/L Carbon Dioxide (21-33) mmol/L Anion Gap (10-20) BUN (7-21) mg/dL Creatinine (0.7-1.2) mg/dl Est GFR ( Amer) Est GFR (Non-Af Amer) POC Glucose (mg/dL) 187 H 230 H 225 H (65-110) mg/dL Random Glucose (70-110) mg/dL Calcium (8.4-10.5) mg/dL Phosphorus (2.5-4.5) mg/dL Magnesium (1.7-2.2) mg/dL Total Bilirubin (0.2-1.3) mg/dL AST (14-36) U/L ALT (7-56) U/L Alkaline Phosphatase (38-126) U/L Total Protein (5.8-8.3) g/dL Albumin (3.0-4.8) g/dL Globulin gm/dL Albumin/Globulin Ratio (1.1-1.8) 10/29/18 10/29/18 10/29/18 Range/Units 21:06 20:09 18:58 WBC (4.5-11.0) 10^3/uL RBC (3.5-6.1) 10^6/uL Hgb (12.0-16.0) g/dL Hct (36.0-48.0) % MCV (80.0-105.0) fl MCH (25.0-35.0) pg MCHC (31.0-37.0) g/dl RDW (11.5-14.5) % Plt Count (120.0-450.0) 10^3/uL Neut % (Auto) (50.0-68.0) % Lymph % (Auto) (22.0-35.0) % [place] % (Auto) (1.0-6.0) % Eos % (Auto) (1.5-5.0) % Baso % (Auto) (0.0-3.0) % Lymph # (Auto) (1.2-3.4) [place] # (Auto) (0.1-0.6) Eos # (Auto) (0.0-0.7) Baso # (Auto) (0.0-2.0) K/mm3 Absolute Neuts (auto) (1.4-6.5) Differential Comment pCO2 (35-45) mm/Hg pO2 (80-100) mm/Hg HCO3 (21-28) mmol/L ABG pH (7.35-7.45) ABG Total CO2 (22-28) mmol.L ABG O2 Saturation (95-98) % ABG O2 Content (15-23) ML/dl ABG Base Excess (-2.0-3.0) mmol/L ABG Hemoglobin (11.7-17.4) g/dL ABG Carboxyhemoglobin (0.5-1.5) % POC ABG HHb (Measured) (0-5) % ABG Methemoglobin (0.0-3.0) % ABG O2 Capacity (16-24) mL/dl Hgb O2 Saturation (95.0-98.0) % FiO2 % Crit Value Called To Crit Value Called By Blood Gas Notified Time Sodium (132-148) mmol/L Potassium (3.6-5.0) mmol/L Chloride (98-107) mmol/L Carbon Dioxide (21-33) mmol/L Anion Gap (10-20) BUN (7-21) mg/dL Creatinine (0.7-1.2) mg/dl Est GFR ( Amer) Est GFR (Non-Af Amer) POC Glucose (mg/dL) 242 H 297 H 316 H (65-110) mg/dL Random Glucose (70-110) mg/dL Calcium (8.4-10.5) mg/dL Phosphorus (2.5-4.5) mg/dL Magnesium (1.7-2.2) mg/dL Total Bilirubin (0.2-1.3) mg/dL AST (14-36) U/L ALT (7-56) U/L Alkaline Phosphatase (38-126) U/L Total Protein (5.8-8.3) g/dL Albumin (3.0-4.8) g/dL Globulin gm/dL Albumin/Globulin Ratio (1.1-1.8) 10/29/18 10/29/18 10/29/18 Range/Units 18:09 15:33 11:09 WBC (4.5-11.0) 10^3/uL RBC (3.5-6.1) 10^6/uL Hgb (12.0-16.0) g/dL Hct (36.0-48.0) % MCV (80.0-105.0) fl MCH (25.0-35.0) pg MCHC (31.0-37.0) g/dl RDW (11.5-14.5) % Plt Count (120.0-450.0) 10^3/uL Neut % (Auto) (50.0-68.0) % Lymph % (Auto) (22.0-35.0) % [place] % (Auto) (1.0-6.0) % Eos % (Auto) (1.5-5.0) % Baso % (Auto) (0.0-3.0) % Lymph # (Auto) (1.2-3.4) [place] # (Auto) (0.1-0.6) Eos # (Auto) (0.0-0.7) Baso # (Auto) (0.0-2.0) K/mm3 Absolute Neuts (auto) (1.4-6.5) Differential Comment pCO2 (35-45) mm/Hg pO2 (80-100) mm/Hg HCO3 (21-28) mmol/L ABG pH (7.35-7.45) ABG Total CO2 (22-28) mmol.L ABG O2 Saturation (95-98) % ABG O2 Content (15-23) ML/dl ABG Base Excess (-2.0-3.0) mmol/L ABG Hemoglobin (11.7-17.4) g/dL ABG Carboxyhemoglobin (0.5-1.5) % POC ABG HHb (Measured) (0-5) % ABG Methemoglobin (0.0-3.0) % ABG O2 Capacity (16-24) mL/dl Hgb O2 Saturation (95.0-98.0) % FiO2 % Crit Value Called To Crit Value Called By Blood Gas Notified Time Sodium (132-148) mmol/L Potassium (3.6-5.0) mmol/L Chloride (98-107) mmol/L Carbon Dioxide (21-33) mmol/L Anion Gap (10-20) BUN (7-21) mg/dL Creatinine (0.7-1.2) mg/dl Est GFR ( Amer) Est GFR (Non-Af Amer) POC Glucose (mg/dL) 344 H 345 H 396 H (65-110) mg/dL Random Glucose (70-110) mg/dL Calcium (8.4-10.5) mg/dL Phosphorus (2.5-4.5) mg/dL Magnesium (1.7-2.2) mg/dL Total Bilirubin (0.2-1.3) mg/dL AST (14-36) U/L ALT (7-56) U/L Alkaline Phosphatase (38-126) U/L Total Protein (5.8-8.3) g/dL Albumin (3.0-4.8) g/dL Globulin gm/dL Albumin/Globulin Ratio (1.1-1.8) Laboratory Results - last 24 hr 10/29/18 10/29/18 10/29/18 11:09 15:33 18:09 WBC RBC Hgb Hct MCV MCH MCHC RDW Plt Count Neut % (Auto) Lymph % (Auto) [place] % (Auto) Eos % (Auto) Baso % (Auto) Lymph # (Auto) [place] # (Auto) Eos # (Auto) Baso # (Auto) Absolute Neuts (auto) Differential Comment pCO2 pO2 HCO3 ABG pH ABG Total CO2 ABG O2 Saturation ABG O2 Content ABG Base Excess ABG Hemoglobin ABG Carboxyhemoglobin POC ABG HHb (Measured) ABG Methemoglobin ABG O2 Capacity Hgb O2 Saturation FiO2 Crit Value Called To Crit Value Called By Blood Gas Notified Time Sodium Potassium Chloride Carbon Dioxide Anion Gap BUN Creatinine Est GFR ( Amer) Est GFR (Non-Af Amer) POC Glucose (mg/dL) 396 H 345 H 344 H Random Glucose Calcium Phosphorus Magnesium Total Bilirubin AST ALT Alkaline Phosphatase Total Protein Albumin Globulin Albumin/Globulin Ratio 10/29/18 10/29/18 10/29/18 18:58 20:09 21:06 WBC RBC Hgb Hct MCV MCH MCHC RDW Plt Count Neut % (Auto) Lymph % (Auto) [place] % (Auto) Eos % (Auto) Baso % (Auto) Lymph # (Auto) [place] # (Auto) Eos # (Auto) Baso # (Auto) Absolute Neuts (auto) Differential Comment pCO2 pO2 HCO3 ABG pH ABG Total CO2 ABG O2 Saturation ABG O2 Content ABG Base Excess ABG Hemoglobin ABG Carboxyhemoglobin POC ABG HHb (Measured) ABG Methemoglobin ABG O2 Capacity Hgb O2 Saturation FiO2 Crit Value Called To Crit Value Called By Blood Gas Notified Time Sodium Potassium Chloride Carbon Dioxide Anion Gap BUN Creatinine Est GFR ( Amer) Est GFR (Non-Af Amer) POC Glucose (mg/dL) 316 H 297 H 242 H Random Glucose Calcium Phosphorus Magnesium Total Bilirubin AST ALT Alkaline Phosphatase Total Protein Albumin Globulin Albumin/Globulin Ratio 10/29/18 10/29/18 10/29/18 22:06 23:06 23:51 WBC RBC Hgb Hct MCV MCH MCHC RDW Plt Count Neut % (Auto) Lymph % (Auto) [place] % (Auto) Eos % (Auto) Baso % (Auto) Lymph # (Auto) [place] # (Auto) Eos # (Auto) Baso # (Auto) Absolute Neuts (auto) Differential Comment pCO2 pO2 HCO3 ABG pH ABG Total CO2 ABG O2 Saturation ABG O2 Content ABG Base Excess ABG Hemoglobin ABG Carboxyhemoglobin POC ABG HHb (Measured) ABG Methemoglobin ABG O2 Capacity Hgb O2 Saturation FiO2 Crit Value Called To Crit Value Called By Blood Gas Notified Time Sodium Potassium Chloride Carbon Dioxide Anion Gap BUN Creatinine Est GFR ( Amer) Est GFR (Non-Af Amer) POC Glucose (mg/dL) 225 H 230 H 187 H Random Glucose Calcium Phosphorus Magnesium Total Bilirubin AST ALT Alkaline Phosphatase Total Protein Albumin Globulin Albumin/Globulin Ratio 10/30/18 10/30/18 10/30/18 01:04 02:12 03:53 WBC RBC Hgb Hct MCV MCH MCHC RDW Plt Count Neut % (Auto) Lymph % (Auto) [place] % (Auto) Eos % (Auto) Baso % (Auto) Lymph # (Auto) [place] # (Auto) Eos # (Auto) Baso # (Auto) Absolute Neuts (auto) Differential Comment pCO2 pO2 HCO3 ABG pH ABG Total CO2 ABG O2 Saturation ABG O2 Content ABG Base Excess ABG Hemoglobin ABG Carboxyhemoglobin POC ABG HHb (Measured) ABG Methemoglobin ABG O2 Capacity Hgb O2 Saturation FiO2 Crit Value Called To Crit Value Called By Blood Gas Notified Time Sodium Potassium Chloride Carbon Dioxide Anion Gap BUN Creatinine Est GFR ( Amer) Est GFR (Non-Af Amer) POC Glucose (mg/dL) 176 H 169 H 142 H Random Glucose Calcium Phosphorus Magnesium Total Bilirubin AST ALT Alkaline Phosphatase Total Protein Albumin Globulin Albumin/Globulin Ratio 10/30/18 10/30/18 10/30/18 05:10 05:40 05:40 WBC 12.6 H D RBC 3.93 Hgb 10.5 L Hct 35.9 L MCV 91.3 MCH 26.7 MCHC 29.2 L RDW 16.3 H Plt Count 187 Neut % (Auto) 92.6 H Lymph % (Auto) 6.6 L [place] % (Auto) 0.8 L Eos % (Auto) 0.0 L Baso % (Auto) 0.0 Lymph # (Auto) 0.8 L [place] # (Auto) 0.1 Eos # (Auto) 0.0 Baso # (Auto) 0.00 Absolute Neuts (auto) 11.65 H Differential Comment pCO2 pO2 HCO3 ABG pH ABG Total CO2 ABG O2 Saturation ABG O2 Content ABG Base Excess ABG Hemoglobin ABG Carboxyhemoglobin POC ABG HHb (Measured) ABG Methemoglobin ABG O2 Capacity Hgb O2 Saturation FiO2 Crit Value Called To Crit Value Called By Blood Gas Notified Time Sodium 149 H Potassium 5.4 H Chloride 112 H Carbon Dioxide 31 Anion Gap 12 BUN > 120 H* Creatinine 3.0 H Est GFR ( Amer) 18 Est GFR (Non-Af Amer) 15 POC Glucose (mg/dL) 163 H Random Glucose 170 H Calcium 9.6 Phosphorus 4.4 Magnesium 2.9 H Total Bilirubin 0.5 AST 20 ALT 12 Alkaline Phosphatase 61 Total Protein 7.1 Albumin 3.7 Globulin 3.5 Albumin/Globulin Ratio 1.1 10/30/18 10/30/18 10/30/18 06:10 06:14 07:10 WBC RBC Hgb Hct MCV MCH MCHC RDW Plt Count Neut % (Auto) Lymph % (Auto) [place] % (Auto) Eos % (Auto) Baso % (Auto) Lymph # (Auto) [place] # (Auto) Eos # (Auto) Baso # (Auto) Absolute Neuts (auto) Differential Comment pCO2 63 H pO2 113.0 H HCO3 29.6 H ABG pH 7.28 L ABG Total CO2 31.5 H ABG O2 Saturation 99.6 H ABG O2 Content 13.6 L ABG Base Excess 1.9 ABG Hemoglobin 9.9 L ABG Carboxyhemoglobin 2.2 H POC ABG HHb (Measured) 0.4 ABG Methemoglobin 0.8 ABG O2 Capacity 13.7 L Hgb O2 Saturation 96.6 FiO2 28.0 Crit Value Called To Rhina arguelles Crit Value Called By [place] Blood Gas Notified Time 630 Sodium Potassium Chloride Carbon Dioxide Anion Gap BUN Creatinine Est GFR ( Amer) Est GFR (Non-Af Amer) POC Glucose (mg/dL) 140 H 146 H Random Glucose Calcium Phosphorus Magnesium Total Bilirubin AST ALT Alkaline Phosphatase Total Protein Albumin Globulin Albumin/Globulin Ratio 10/30/18 10/30/18 10/30/18 08:01 09:22 09:52 WBC RBC Hgb Hct MCV MCH MCHC RDW Plt Count Neut % (Auto) Lymph % (Auto) [place] % (Auto) Eos % (Auto) Baso % (Auto) Lymph # (Auto) [place] # (Auto) Eos # (Auto) Baso # (Auto) Absolute Neuts (auto) Differential Comment pCO2 pO2 HCO3 ABG pH ABG Total CO2 ABG O2 Saturation ABG O2 Content ABG Base Excess ABG Hemoglobin ABG Carboxyhemoglobin POC ABG HHb (Measured) ABG Methemoglobin ABG O2 Capacity Hgb O2 Saturation FiO2 Crit Value Called To Crit Value Called By Blood Gas Notified Time Sodium Potassium Chloride Carbon Dioxide Anion Gap BUN Creatinine Est GFR ( Amer) Est GFR (Non-Af Amer) POC Glucose (mg/dL) 160 H 219 H 235 H Random Glucose Calcium Phosphorus Magnesium Total Bilirubin AST ALT Alkaline Phosphatase Total Protein Albumin Globulin Albumin/Globulin Ratio 10/30/18 10/30/18 10/30/18 11:28 12:24 14:06 WBC RBC Hgb Hct MCV MCH MCHC RDW Plt Count Neut % (Auto) Lymph % (Auto) [place] % (Auto) Eos % (Auto) Baso % (Auto) Lymph # (Auto) [place] # (Auto) Eos # (Auto) Baso # (Auto) Absolute Neuts (auto) Differential Comment pCO2 pO2 HCO3 ABG pH ABG Total CO2 ABG O2 Saturation ABG O2 Content ABG Base Excess ABG Hemoglobin ABG Carboxyhemoglobin POC ABG HHb (Measured) ABG Methemoglobin ABG O2 Capacity Hgb O2 Saturation FiO2 Crit Value Called To Crit Value Called By Blood Gas Notified Time Sodium Potassium Chloride Carbon Dioxide Anion Gap BUN Creatinine Est GFR ( Amer) Est GFR (Non-Af Amer) POC Glucose (mg/dL) 262 H 294 H 284 H Random Glucose Calcium Phosphorus Magnesium Total Bilirubin AST ALT Alkaline Phosphatase Total Protein Albumin Globulin Albumin/Globulin Ratio Radiology Impressions: Radiology Impressions Chest X-Ray 10/30/18 06:00 IMPRESSION: No active disease. Resolved pulmonary vascular congestion. EKG/Cardiology Studies: Cardiology / EKG Studies 10/30/18 09:31 EKG [ELECTROCARDIOGRAM] Stat Comment: Reason For Exam: PAF 10/31/18 07:00 ELECTROCARDIOGRAM Routine Comment: A flutter, PAF Reason For Exam: CAD PRE OP:: N Does Patient Have a Pacemaker?: No Critical Care Progress Note - Nutrition Nutrition: Nutrition Category Date Time Status Dysphagia/Modified Consistency Diet [DIET] Diets 10/30/18 Lunch Ordered Attending/Attestation - Attestation I have personally seen and examined this patient.: Yes I have fully participated in the care of the patient.: Yes I have reviewed all pertinent clinical information: Yes Notes (Text): 10/30/18 18:[address] Santiago note
[2018-10-30] MEDS: Budesonide 0.5 mg/2 ml Inhal Susp UD IH SCH ×2 (07:15→20:40)
[2018-10-30 07:16] LABS: ALB/GLOB RATIO 1.1 (1.1-1.8); ALBUMIN 3.7 g/dL (3.0-4.8); ALT/SGPT 12 U/L (7-56); AST/SGOT 20 U/L (14-36); BLOOD UREA NITROGEN > 120 mg/dL (7-21); CALCIUM 9.6 mg/dL (8.4-10.5); GFR NON-AFRICAN AMERICAN 15
[2018-10-30] MEDS ORDERED: Insulin Detemir 100 units/ml Vial (Levemir) SC STA (08:23)
--- NOTE | 2018-10-30 08:43 | PN ---
DATE: 10/30/2018(710am-800am) PULMONARY PROGRESS NOTE SUBJECTIVE: The patient appears quite comfortable this morning. She is not short of breath at rest. PHYSICAL EXAMINATION VITAL SIGNS: Temperature is 97.7, pulse 71, respirations 16/18, blood pressure 167/55, oxygen saturation on nasal cannula is 100%. HEENT: Normocephalic, atraumatic. No JVD. CARDIOVASCULAR: Systolic ejection murmur at the lower left sternal border. Positive S3 gallop. LUNGS: Minimal/less crackles at the bases. Much less rhonchi. No wheezing. GI: Soft, nontender and nondistended. Bowel sounds are positive. EXTREMITIES: Minimal edema. No cyanosis, no clubbing. Calves are nontender to palpation. SKIN: No acute rash. NEUROLOGIC: Limited at the present time. PERTINENT LABORATORY DATA: Chest x-ray was done this morning and reviewed. The chest x-ray continues to improve-- with resolution of the pulmonary vascular congestion. There is also resolution of the right lower lobe changes. Arterial blood gas was done on 2 liters nasal cannula. Results are; pH 7.28, pCO2 of 63, pO2 of 113. IMPRESSION 1. Respiratory failure. 2. Acute congestive heart failure. 3. Advanced chronic obstructive pulmonary disease. 4. Right lower lobe pneumonia. 5. Rule out myocardial infarction. 6. Paroxysmal atrial fibrillation. 7. Renal insufficiency. PLAN: The patient appears very comfortable this morning. She is not short of breath at rest. She is very awake and alert. She does state to feeling much better this morning. I did review the chest x-ray from this morning. The chest x-ray continues to improve. Findings are noted above. I have also reviewed the arterial blood gas. There is a mild respiratory acidosis on today's arterial blood gas. There is a significant decrease in the alveolar-arterial gradient. I will decrease the patient to 1 liter nasal cannula--discussed with respiratory. On physical exam,there is much less bronchospasm noted. I will continue the current nebulizer treatments and low-dose intravenous steroids for now. I would continue with the antibiotic coverage as per Infectious Disease. Input by Dr. Malone is noted. Inputs by Renal and Cardiology are also noted. Clinical status of the patient is significantly improved overall. However, given the above, the future status/prognosis for this patient does remain guarded. I will discuss the above with the entire ICU team in the next few moments. I will discuss the above with the attending physician later this morning. Bhupinder Chiang MD [facility]
[2018-10-30] MEDS: Pantoprazole 40 mg EC Tab PO SCH (08:44)
[2018-10-30] MEDS: Sildenafil 20 MG TAB PO SCH ×2 (09:20→17:44)
[2018-10-30] MEDS: MethylPREDNISolone 40 mg Vial IVP SCH ×2 (09:20→21:19)
[2018-10-30] MEDS: POLYETHYLENE GLYCOL 3350 17 GM/Dose PACKET PO SCH ×2 (09:22→17:43)
[2018-10-30] MEDS: Vitamins A & D Oint UD Foilpak TOP SCH ×2 (09:23→17:43)
[2018-10-30] MEDS: Verapamil 120 mg ER Tab PO SCH (10:33)
--- NOTE | 2018-10-30 11:48 | RAD ---
Date of service: 10/30/2018 HISTORY: Follow-up. COMPARISON: October 29, 2018. FINDINGS: LUNGS: No active pulmonary disease. PLEURA: No significant pleural effusion identified, no pneumothorax apparent. CARDIOVASCULAR: Cardiomegaly. No evidence of acute, significant cardiovascular disease. Position/ configuration of pacemaker Satisfactory. Atherosclerotic calcifications identified primarily aortic arch. OSSEOUS STRUCTURES: No significant abnormalities. VISUALIZED UPPER ABDOMEN: Normal. OTHER FINDINGS: None. IMPRESSION: No active disease. Resolved pulmonary vascular congestion.
--- NOTE | 2018-10-30 11:57 | PN ---
DATE: 10/30/2018 SUBJECTIVE: The patient is seen and examined at bedside. She is comfortable. She talks in full sentences. She is not in respiratory or otherwise distress. The daughter is at bedside, reports that she is at her baseline. OBJECTIVE: VITAL SIGNS: Heart rate 61, blood pressure 165/60, respiratory rate 14, oxygen saturation 100% on 2 liters nasal cannula. HEENT: Head and neck atraumatic. LUNGS: Clear to auscultation bilaterally. HEART: Regular rate and rhythm. S1 and S2 normal. ABDOMEN: Soft, nontender, nondistended. MUSCULOSKELETAL: No C/C/E. NEURO: The patient moves all extremities spontaneously. SKIN: Moist. PSYCH: The patient is alert, awake and oriented x3. LABORATORY DATA: WBC 12.6, hemoglobin 10.5, platelet count 187. Sodium 149, potassium 5.4, chloride 112, carbon dioxide 31, BUN more than 120, creatinine 3 down from 3.2, glucose 219. MEDICATIONS: Tylenol p.r.n., DuoNeb p.r.n., amiodarone, Eliquis, Lipitor, Pulmicort, digoxin, hydralazine, Levemir, Xopenex, meropenem, Solu-Medrol 20 mg IV every 12 hours, metoprolol, Singulair, Protonix, Lyrica, Revatio, verapamil p.r.n. ASSESSMENT AND PLAN: This is a 73-year-old lady with resolved diastolic congestive heart failure exacerbation. She appears to be euvolemic. She is alert, awake and oriented x3. Protecting airways. Her heart rate is well-controlled with beta-blockers and calcium channel blockers. Her creatinine is trending down; however, her blood urea nitrogen remains highly elevated. I will touch base with Nephrology service about that, however, it does not appear to affect her mental status and level of consciousness. Her arterial blood gas shows some carbon dioxide retention which probably warrants nighttime and intermittent bilevel positive airway pressure application. Clinically, the patient definitely looks stable for downgrading to telemetry. ccm time 40 min Vitaliy Santiago MD [facility] # [id number] MTDD
--- NOTE | 2018-10-30 12:28 | PN ---
DATE: 10/30/2018 REASON FOR CONSULTATION AND FOLLOWUP: Coronary artery disease, COPD, history of PTCA, history of CABG, history of atrial fibrillation, pacemaker, admitted with worsening renal insufficiency, status post respiratory failure and pneumonia, now successfully extubated. SUBJECTIVE: The patient is off all inotropes and IV drip, feels a lot better, weak and alert, was on CPAP. Denies any chest pain, shortness of breath, or any palpitation. OBJECTIVE: GENERAL: Not in apparent distress. VITAL SIGNS: Heart rate 61, now the patient is in normal sinus, earlier the patient is in atrial flutter, blood pressure 167/55. HEENT: PERRLA. Extraocular muscles intact. NECK: Supple. No carotid bruit. No thyromegaly. CHEST: Clear to auscultation. HEART: S1 and S2, irregular. ABDOMEN: Soft. EXTREMITIES: Clubbing and cyanosis negative. LABORATORY DATA: WBC 12.6, hemoglobin 10.5, hematocrit 35.9, and platelet count 187. Chemistry shows sodium 149, potassium 5.4, chloride 112, carbon dioxide 30, anion gap of 12, BUN 120, creatinine 3, creatinine clearance 15 mL an hour. IMPRESSION: A 73-year-old female with past medical history significant for coronary artery disease, status post coronary artery bypass surgery in 2013, status post percutaneous transluminal coronary of [place] right coronary artery, saphenous venous graft to the right coronary artery occluded; history of permanent pacemaker; history of proximal atrial fibrillation; history of renal insufficiency, admitted with pneumonia; worsening respiratory status; impending respiratory failure, moved to ICU, the patient was then intubated, now the patient successfully extubated; decompensated congestive heart failure secondary to renal insufficiency and diastolic dysfunction; chronic obstructive pulmonary disease, history of pulmonary hypertension, history of chronic kidney disease, now in acute kidney injury on chronic renal insufficiency. Recent echo dated 10/19/2018 showed ejection fraction of 55 to 60%, right ventricle mild to moderately dilated, systolic function of right ventricle moderately reduced, trace aortic regurgitation, aortic sclerosis with mild aortic stenosis, trace mitral regurgitation, mild mitral valve stenosis, mild tricuspid regurgitation, right ventricular systolic pressure of 55 mmHg, mild to moderate pulmonary hypertension, right heart failure, congestive heart failure (right-sided failure secondary to renal insufficiency as well as atrial fibrillation, rapid rate, now is rate well controlled. RECOMMENDATION: Off Cardizem drip, started on verapamil we will start today to see the dose from today and we will put hydralazine p.r.n. in addition to hydralazine 50 mg p.o. b.i.d. Continue amiodarone 200 mg p.o. t.i.d. today and then start 200 mg from tomorrow. Continue low-dose Eliquis. Dig was given to control rate. We will get EKG to assess rhythm. We will follow with you. Eventually, the patient needs long-term care including the dialysis. We will discuss with the patient's family if they agreed. We will start verapamil 240 mg ER, hold for systolic blood pressure less than or equal to 130 and heart rate less than 60. Since the patient's pacemaker is old, skipped the heart rate, but reported systolic blood pressure less than 130. Probably okay to transfer to [facility] if remained stable. Thank you Dr. Schultz to provide us opportunity in taking care of the patient, Sobeida Emerson. We will follow up with you and change verapamil to CD 240 mg today. Sapna Latif MD
--- NOTE | 2018-10-30 14:10 | PN ---
DATE: 10/30/2018 SUBJECTIVE: The patient is a 73-year-old seen and examined. Remains extubated. Currently, on nasal cannula. She is fully awake, alert, and oriented mild shortness of breath, but resting comfortably. PHYSICAL EXAMINATION VITAL SIGNS: She is afebrile, pulse 62, respirations 22, and blood pressure 159/65. LUNGS: Bilateral diffusely decreased breath sounds. HEART: S1 and S2 audible. Irregular rate control. ABDOMEN: Soft and nontender. No rebound. No guarding. NEUROLOGIC: The patient is awake and alert; able to communicate. EXTREMITIES: Bilateral legs, no edema. LABORATORY DATA: WBC is 12.6, hemoglobin 10.5, hematocrit 35.9, and platelet 187. Chemistry, sodium 149, potassium 5.4, chloride 112, CO2 of 31, BUN 120, creatinine 3.0, and blood sugar of . ASSESSMENT: 1. Chronic obstructive pulmonary disease exacerbation. 2. Status post rapid atrial fibrillation. 3. Congestive heart failure. 4. History of pulmonary hypertension. 5. Coronary artery disease, status post open heart surgery in 2013. 6. Status post right coronary artery angioplasty. 7. Bilateral pneumonia. 8. Acute to chronic renal failure. PLAN: Currently, the patient is on verapamil 240 mg daily, she is on amiodarone 200 mg daily from 10/31/2018; but currently she is on 400 mg three times a day, she is getting nebulizer treatment, she is on Eliquis, folic acid, she is on , she is on atorvastatin, she is on metoprolol and gabapentin. Continue nebulizer treatment, up to bed to chair and we will request for physical therapy evaluation. Laurel Schultz MD
[2018-10-30] MEDS: Insulin Reg-HIGH-Coverage SC SCH ×2 (15:30→21:38)
--- NOTE | 2018-10-30 15:37 | CP.PCM.PN ---
<Mathew Vigil - Last Filed: 10/30/18 15:35> Subjective - Date & Time of Evaluation Date of Evaluation: 10/30/18 Time of Evaluation: 08:50 - Subjective Subjective: Mathew Vigil D.O. PGY-3, Internal Medicine Resident, Infectious Disease Progress Note 73 year old female admitted to ICU for hypertensive emergency complicated by ventilator dependent hypercapnic respiratory failure in the setting of cardior enal syndrome. Infectious disease consultation was requested for pneumonia. Patient was seen and examined at bedside. Clinically improved. Family at bedside. No acute complaints. Objective - Vital Signs/Intake and Output Vital Signs (last 24 hours): Temp Pulse Resp BP Pulse Ox 97.7 F 60 13 150/45 L 97 10/29/18 05:00 10/30/18 14:34 10/30/18 12:10 10/30/18 14:34 10/30/18 12:10 Intake and Output: 10/30/18 10/30/18 06:59 18:59 Intake Total 53 11 Balance 53 11 - Medications Medications: Current Medications Acetaminophen (Tylenol 325mg Tab) 650 mg PO Q6H PRN PRN Reason: Fever >100.4 F Last Admin: 10/21/18 16:47 Dose: 650 mg Albuterol/Ipratropium (Duoneb 3 Mg/0.5 Mg (3 Ml) Ud) 3 ml IH Q2H PRN PRN Reason: Shortness of Breath Last Admin: 10/19/18 10:38 Dose: 3 ml Amiodarone HCl (Cordarone) 200 mg PO DAILY [facility] Amiodarone HCl (Cordarone) 400 mg PO TID [facility] Stop: 10/30/18 23:59 Last Admin: 10/30/18 14:34 Dose: 400 mg Apixaban (Eliquis) 2.5 mg PO BID [facility]; Protocol Last Admin: 10/30/18 09:20 Dose: 2.5 mg Atorvastatin Calcium (Lipitor) 40 mg PO DAILY [facility] Last Admin: 10/30/18 10:33 Dose: 40 mg Budesonide (Pulmicort Respules) 0.5 mg IH [id number] [facility] Last Admin: 10/30/18 07:15 Dose: 0.5 mg Dextrose (Dextrose 50% Inj) 0 ml IV STAT PRN; Protocol PRN Reason: Hypoglycemia Protocol Folic Acid (Folic Acid) 1 mg PO DAILY [facility] Last Admin: 10/30/18 09:22 Dose: 1 mg Hydralazine HCl (Apresoline) 50 mg PO BID [facility] Last Admin: 10/30/18 10:35 Dose: 50 mg Hydralazine HCl (Apresoline) 10 mg IVP Q4 PRN PRN Reason: SBP > 180 Last Admin: 10/28/18 15:50 Dose: 10 mg Nicardipine HCl (Cardene Iv Premix) 20 mg in 200 mls @ 50 mls/hr IV .Q4H PRN; Protocol PRN Reason: TITRATE PER MD ORDER Last Titration: 10/24/18 07:15 Dose: 0 mg/hr, 0 mls/hr Midazolam 100 mg/100ml in NS (Midazolam 100 Mg/100ml In Ns) 100 mg in 100 mls @ 1 mls/hr IV .Q24H PRN; Protocol PRN Reason: Sedation Last Titration: 10/25/18 06:53 Dose: 0 mg/hr, 0 mls/hr Meropenem 250 mg/ Sodium (Chloride) 100 mls @ 100 mls/hr IVPB Q12H [facility]; Protocol Stop: 10/31/18 10:16 Last Admin: 10/30/18 09:24 Dose: 100 mls/hr Dextrose (Dextrose 5% In Water 1000 Ml) 1,000 mls @ 0 mls/hr IV .Q0M PRN; Protocol PRN Reason: Hypoglycemia Protocol Insulin Human Regular 100 (units/ Sodium Chloride) 100 mls @ 6 mls/hr IV .[id number] PRN; Protocol PRN Reason: TITRATE PER MD ORDER Last Titration: 10/30/18 11:00 Dose: 3 units/hr, 3 mls/hr Insulin Human Regular (Humulin R High) 0 units SC ACHS [facility]; Protocol Levalbuterol HCl (Xopenex) 1.25 mg IH [id number] [facility] Last Admin: 10/30/18 13:17 Dose: 1.25 mg Methylprednisolone (Solu-Medrol) 20 mg IVP Q12 [facility] Last Admin: 10/30/18 09:20 Dose: 20 mg Metoprolol Tartrate (Lopressor) 50 mg PO BID [facility] Last Admin: 10/30/18 09:22 Dose: 50 mg Montelukast Sodium (Singulair) 10 mg PO HS [facility] Last Admin: 10/29/18 23:00 Dose: 10 mg Ondansetron HCl (Zofran Inj) 4 mg IVP Q6H PRN PRN Reason: Nausea/Vomiting Last Admin: 10/19/18 07:55 Dose: 4 mg Pantoprazole Sodium (Protonix Ec Tab) 40 mg PO 0600 [facility] Last Admin: 10/30/18 08:44 Dose: 40 mg Polyethylene Glycol (Miralax) 17 gm PO BID [facility] Last Admin: 10/30/18 09:22 Dose: 17 gm Pregabalin (Lyrica) 75 mg PO BID [facility] Last Admin: 10/24/18 09:45 Dose: 75 mg Sildenafil Citrate (Revatio) 20 mg PO BID [facility] Last Admin: 10/30/18 09:20 Dose: 20 mg Verapamil HCl (Verapamil Inj) 2.5 mg IVP Q6H PRN PRN Reason: for Heart rate >120 Last Admin: 10/26/18 02:12 Dose: 2.5 mg Verapamil HCl (Calan Sr Tab) 240 mg PO DAILY [facility] Last Admin: 10/30/18 10:33 Dose: 240 mg Vitamin A (Vitamin A & D Oint Ud Foilpak) 1 ea TOP BID [facility] Last Admin: 10/30/18 09:23 Dose: 1 ea - Labs Labs: 10/30/18 05:40 10/30/18 05:40 PT 14.8 SECONDS (9.4-12.5) H 10/23/18 14:00 INR 1.33 10/23/18 14:00 APTT 26.6 Seconds (26.9-38.3) L 10/23/18 14:00 - Constitutional Appears: Non-toxic, Chronically Ill - Head Exam Head Exam: ATRAUMATIC - Eye Exam Eye Exam: EOMI - ENT Exam ENT Exam: Mucous Membranes Moist - Neck Exam Neck Exam: Normal Inspection - Cardiovascular Exam Cardiovascular Exam: Tachycardia - GI/Abdominal Exam GI & Abdominal Exam: Soft - Extremities Exam Extremities Exam: absent: Tenderness - Neurological Exam Neurological Exam: Alert, Awake - Skin Skin Exam: Dry, Warm Assessment and Plan - Assessment and Plan (Free Text) Assessment: 73 year old female admitted to ICU for hypertensive emergency complicated by ventilator dependent hypercapnic respiratory failure in the setting of cardiorenal syndrome. Infectious disease consultation was requested for pneumon ia. Plan: Pseudomonas UTI HAP Continue meropenem now day 13 of 14 Slight bump with leukocytosis, will monitor clinically Will continue to follow Patient was seen and examined and case to be discussed with attending physician Thank you for the pleasure of participating in the care of this interesting patient <Juan Miguel Malone - Last Filed: 10/30/18 21:36> Objective - Vital Signs/Intake and Output Vital Signs (last 24 hours): Temp Pulse Resp BP Pulse Ox 97.7 F 60 40 H 165/62 H 98 10/29/18 05:00 10/30/18 17:51 10/30/18 16:35 10/30/18 17:28 10/30/18 16:20 Intake and Output: 10/30/18 10/31/18 18:59 06:59 Intake Total 601 Output Total 800 Balance -199 - Medications Medications: Current Medications Acetaminophen (Tylenol 325mg Tab) 650 mg PO Q6H PRN PRN Reason: Fever >100.4 F Last Admin: 10/21/18 16:47 Dose: 650 mg Albuterol/Ipratropium (Duoneb 3 Mg/0.5 Mg (3 Ml) Ud) 3 ml IH Q2H PRN PRN Reason: Shortness of Breath Last Admin: 10/19/18 10:38 Dose: 3 ml Amiodarone HCl (Cordarone) 200 mg PO DAILY [facility] Amiodarone HCl (Cordarone) 400 mg PO TID [facility] Stop: 10/30/18 23:59 Last Admin: 10/30/18 17:25 Dose: 400 mg Apixaban (Eliquis) 2.5 mg PO BID [facility]; Protocol Last Admin: 10/30/18 17:27 Dose: 2.5 mg Atorvastatin Calcium (Lipitor) 40 mg PO DAILY [facility] Last Admin: 10/30/18 10:33 Dose: 40 mg Budesonide (Pulmicort Respules) 0.5 mg IH [id number] [facility] Last Admin: 10/30/18 20:40 Dose: 0.5 mg Dextrose (Dextrose 50% Inj) 0 ml IV STAT PRN; Protocol PRN Reason: Hypoglycemia Protocol Folic Acid (Folic Acid) 1 mg PO DAILY [facility] Last Admin: 10/30/18 09:22 Dose: 1 mg Hydralazine HCl (Apresoline) 50 mg PO BID [facility] Last Admin: 10/30/18 17:28 Dose: 50 mg Hydralazine HCl (Apresoline) 10 mg IVP Q4 PRN PRN Reason: SBP > 180 Last Admin: 10/28/18 15:50 Dose: 10 mg Nicardipine HCl (Cardene Iv Premix) 20 mg in 200 mls @ 50 mls/hr IV .Q4H PRN; Protocol PRN Reason: TITRATE PER MD ORDER Last Titration: 10/24/18 07:15 Dose: 0 mg/hr, 0 mls/hr Midazolam 100 mg/100ml in NS (Midazolam 100 Mg/100ml In Ns) 100 mg in 100 mls @ 1 mls/hr IV .Q24H PRN; Protocol PRN Reason: Sedation Last Titration: 10/25/18 06:53 Dose: 0 mg/hr, 0 mls/hr Meropenem 250 mg/ Sodium (Chloride) 100 mls @ 100 mls/hr IVPB Q12H [facility]; Protocol Stop: 10/31/18 10:16 Last Admin: 10/30/18 09:24 Dose: 100 mls/hr Dextrose (Dextrose 5% In Water 1000 Ml) 1,000 mls @ 0 mls/hr IV .Q0M PRN; Protocol PRN Reason: Hypoglycemia Protocol Insulin Human Regular 100 (units/ Sodium Chloride) 100 mls @ 6 mls/hr IV .[id number] PRN; Protocol PRN Reason: TITRATE PER MD ORDER Last Titration: 10/30/18 11:00 Dose: 3 units/hr, 3 mls/hr Insulin Human Regular (Humulin R High) 0 units SC ACHS [facility]; Protocol Last Admin: 10/30/18 15:30 Dose: 7 units Levalbuterol HCl (Xopenex) 1.25 mg IH [id number] [facility] Last Admin: 10/30/18 20:40 Dose: 1.25 mg Methylprednisolone (Solu-Medrol) 20 mg IVP Q12 [facility] Last Admin: 10/30/18 09:20 Dose: 20 mg Metoprolol Tartrate (Lopressor) 50 mg PO BID [facility] Last Admin: 10/30/18 17:25 Dose: 50 mg Montelukast Sodium (Singulair) 10 mg PO HS [facility] Last Admin: 10/29/18 23:00 Dose: 10 mg Ondansetron HCl (Zofran Inj) 4 mg IVP Q6H PRN PRN Reason: Nausea/Vomiting Last Admin: 10/19/18 07:55 Dose: 4 mg Pantoprazole Sodium (Protonix Ec Tab) 40 mg PO 0600 [facility] Last Admin: 10/30/18 08:44 Dose: 40 mg Polyethylene Glycol (Miralax) 17 gm PO BID [facility] Last Admin: 10/30/18 17:43 Dose: Not Given Pregabalin (Lyrica) 75 mg PO BID [facility] Last Admin: 10/24/18 09:45 Dose: 75 mg Sildenafil Citrate (Revatio) 20 mg PO BID [facility] Last Admin: 10/30/18 17:44 Dose: 20 mg Verapamil HCl (Verapamil Inj) 2.5 mg IVP Q6H PRN PRN Reason: for Heart rate >120 Last Admin: 10/26/18 02:12 Dose: 2.5 mg Verapamil HCl (Calan Sr Tab) 240 mg PO DAILY [facility] Last Admin: 10/30/18 10:33 Dose: 240 mg Vitamin A (Vitamin A & D Oint Ud Foilpak) 1 ea TOP BID [facility] Last Admin: 10/30/18 17:43 Dose: 1 ea - Labs Labs: 10/30/18 05:40 10/30/18 05:40 PT 14.8 SECONDS (9.4-12.5) H 10/23/18 14:00 INR 1.33 10/23/18 14:00 APTT 26.6 Seconds (26.9-38.3) L 10/23/18 14:00 Attending/Attestation - Attestation I have personally seen and examined this patient.: Yes I have fully participated in the care of the patient.: Yes I have reviewed all pertinent clinical information, including history, physical exam and plan: Yes
--- NOTE | 2018-10-30 16:09 | CARD ---
APPROVED REPORT Date of service: 10/30/2018 EKG Measurement Heart [id number] <Conclusion> Electronic atrial pacemaker Left axis deviation Incomplete right bundle branch block Inferior infarct, age undetermined ST & T wave abnormality, consider anterolateral ischemia Abnormal ECG
[2018-10-30 20:57] LABS: HEPATITIS B SURFACE AG Negative (NEGATIVE)
[2018-10-30 21:02] LABS: HEPATITIS A IGM NEGATIVE (NEGATIVE); HEPATITIS B CORE AB NEGATIVE (NEGATIVE)
[2018-10-30 21:14] LABS: HEPATITIS C ANTIBODY NEGATIVE (NEGATIVE)
[2018-10-30 21:21] LABS: PH,URINE 5.5 (4.7-8.0); URINE BILIRUBIN NEGATIVE (NEGATIVE); URINE BLOOD LARGE (NEGATIVE); URINE GLUCOSE (UA) 250 mg/dL (NEGATIVE); URINE LEUKOCYTE ESTERASE NEGATIVE Leu/uL (NEGATIVE); URINE PROTEIN 30 mg/dL (<30 mg/dL); URINE UROBILINOGEN 0.2 E.U./dL (<1 E.U./dL)
[2018-10-30 21:22] LABS: URINE APPEARANCE SL CLOUDY (CLEAR); URINE COLOR YELLOW (YELLOW)
[2018-10-30 21:35] LABS: URINE RBC TNTC /hpf (0-2); URINE WBC 15 - 20 /hpf (0-6)
[2018-10-30 21:36] LABS: URINE AMORPHOUS SEDIMENT MODERATE /hpf; URINE BACTERIA MANY /hpf; URINE URIC ACID CRYSTALS MOD /hpf
[2018-10-30] MEDS ORDERED: Insulin Detemir 100 units/ml Vial (Levemir) SC SCH (22:00)
--- NOTE | 2018-10-30 22:09 | PN ---
DATE: 10/30/2018 SUBJECTIVE: The patient is seen lying in bed in the ICU. Daughter is at the bedside. She reports she is feeling much better, but she still appears to be in [id number] respiratory distress. Her Benton catheter was removed earlier. She is now on PureWick. There is very little urine in the container. She denies any chest pain. She does have a wet cough. PHYSICAL EXAMINATION: GENERAL: An elderly lady lying in bed in the ICU. VITAL SIGNS: Blood pressure 165/62, heart rate 60, respiratory rate 40, and temperature 97.7. HEENT: Normocephalic and atraumatic. Positive pallor. NECK: Supple. No JVD. LUNGS: Bilateral rhonchi, bilateral distant breath sounds. No rales appreciated anteriorly. CARDIAC: S1 and S2, regular rate and rhythm. Positive murmur. No rub. ABDOMEN: Obese, distended, soft, and nontender. Bowel sounds present. EXTREMITIES: No lower extremity edema. INTAKE AND OUTPUT: 590/800. LABORATORY DATA: WBC 12.6, hemoglobin 10.5, hematocrit 36, and platelets 187. Sodium 149, potassium 5.4, chloride 112, CO2 of 31, BUN greater than 120, creatinine 3.0, glucose 170, calcium 9.6, phosphorus 4.4 magnesium 2.9, and albumin 3.7. CURRENT MEDICATIONS: Apresoline 50 mg b.i.d., verapamil 240 mg daily, Cordarone 400 mg t.i.d., Eliquis 2.5 mg b.i.d., folic acid 1 mg, Lipitor 40 mg daily, Lopressor 50 mg b.i.d., Lyrica 75 mg b.i.d., meropenem 250 mg every 12 hours, MiraLax, Revatio 20 mg b.i.d., and Solu-Medrol 20 mg every 12 hours. ASSESSMENT: This is a 73-year-old lady with history of coronary artery disease, coronary artery bypass graft, percutaneous transluminal coronary angioplasty and stent of [place] right coronary artery, congestive heart failure, cardiomyopathy, paroxysmal atrial fibrillation, admitted with respiratory failure, pneumonia, acute kidney injury superimposed on chronic kidney disease stage IV, and hyperkalemia. Now, the patient has been successfully extubated, but her respiratory status is still tenuous. She has severe chronic obstructive pulmonary disease and pulmonary hypertension. Echocardiogram from 10/19 showed normal ejection fraction of 55-60%, right ventricle [id number] dilated, right ventricular ejection fraction reduced, moderate pulmonary hypertension and right heart failure. 1. Acute kidney injury superimposed on chronic disease stage IV. 2. Hyperkalemia, resolved. 3. Respiratory failure. 4. Severe right-sided heart failure. 5. Severe pulmonary hypertension. 6. Atrial fibrillation. PLAN: 1. Continue verapamil ER 240 mg for rate control. 2. Continue amiodarone 400 mg t.i.d. 3. Check 24-hour urine for protein and creatinine clearance. 4. She will likely need renal replacement therapy soon. 5. Start Venofer 200 mg IV piggyback. Case discussed with daughter at bedside, case discussed with Dr. Santiago, and case discussed with ICU nursing staff. More than 35 minutes was spent in the care of this critically ill patient. Doris Antunez MD
[2018-10-31] MEDS: Levalbuterol 1.25 MG/3 ML Inhal Soln UD IH SCH ×4 (01:50→20:14)
[2018-10-31 06:45] LABS: HEMOGLOBIN 10.9 g/dL (12.0-16.0); LYMPH # 0.7 (1.2-3.4); MEAN CELL VOLUME 89.6 fl (80.0-105.0); MEAN CORPUSCULAR HGB CONC 30.2 g/dl (31.0-37.0); MONO # 0.1 (0.1-0.6); MONO % 0.5 % (1.0-6.0); PLATELET COUNT 193 10^3/uL (120.0-450.0); RBC 4.03 10^6/uL (3.5-6.1); RED CELL DISTRIBUTION WIDTH 16.2 % (11.5-14.5); WHITE BLOOD COUNT 11.1 10^3/uL (4.5-11.0)
[2018-10-31 07:02] LABS: ARTERIAL BLOOD GAS HCO3 32.2 mmol/L (21-28); ARTERIAL BLOOD GAS HEMOGLOBIN 10.3 g/dL (11.7-17.4); ARTERIAL BLOOD GAS O2 CAPACITY 14.2 mL/dl (16-24); ARTERIAL BLOOD GAS O2 CONTENT 14.1 ML/dl (15-23); ARTERIAL BLOOD GAS O2 SAT 99.5 % (95-98); ARTERIAL BLOOD GAS PCO2 61 mm/Hg (35-45); ARTERIAL BLOOD GAS PH 7.33 (7.35-7.45); ARTERIAL BLOOD GAS TCO2 34.1 mmol.L (22-28)
[2018-10-31 07:11] LABS: ALB/GLOB RATIO 1.1 (1.1-1.8); ALBUMIN 3.7 g/dL (3.0-4.8); CALCIUM 9.7 mg/dL (8.4-10.5)
[2018-10-31 07:43] LABS: BAND 1 % (0-2); MONOCYTE 4 % (1.0-6.0); NEUTROPHIL 95 % (50.0-70.0)
[2018-10-31 07:44] LABS: LARGE PLATELETS PRESENT; PLATELET ESTIMATE NORMAL (NORMAL)
--- NOTE | 2018-10-31 07:44 | RAD ---
Date of service: 10/31/2018 HISTORY: f/u COMPARISON: Portable chest 10/30/2018. FINDINGS: LUNGS: No active pulmonary disease. PLEURA: No significant pleural effusion identified, no pneumothorax apparent. CARDIOVASCULAR: Calcific atherosclerotic changes are seen related to the thoracic aorta. Cardiomegaly appears stable. No pulmonary vascular congestion. Bipolar permanent cardiac pacemaker reiterated. OSSEOUS STRUCTURES: Venous anatomy reiterated. VISUALIZED UPPER ABDOMEN: Normal. OTHER FINDINGS: None. IMPRESSION: Stable cardiomegaly. No interval infiltrate, pleural effusion or pneumothorax. No definite pulmonary vascular congestion.
[2018-10-31] MEDS: Budesonide 0.5 mg/2 ml Inhal Susp UD IH SCH ×2 (08:36→20:10)
[2018-10-31] MEDS: Verapamil 120 mg ER Tab PO SCH (09:36)
[2018-10-31] MEDS: Pantoprazole 40 mg EC Tab PO SCH (09:40)
[2018-10-31] MEDS: POLYETHYLENE GLYCOL 3350 17 GM/Dose PACKET PO SCH ×2 (09:40→17:12)
[2018-10-31] MEDS: Sildenafil 20 MG TAB PO SCH ×2 (09:41→17:12)
[2018-10-31] MEDS: MethylPREDNISolone 40 mg Vial IVP SCH ×2 (09:41→22:00)
[2018-10-31] MEDS: Vitamins A & D Oint UD Foilpak TOP SCH ×2 (09:43→17:13)
--- NOTE | 2018-10-31 10:09 | PN ---
DATE: 10/31/2018 PULMONARY NOTE SUBJECTIVE: The patient appears very comfortable this morning. She is not short of breath at rest. She is awake and alert. PHYSICAL EXAMINATION: VITAL SIGNS: Temperature is 98.2, pulse 61, respiratory rate 18/20, blood pressure 168/104. Oxygen saturation on nasal cannula is 97%. HEENT: Normocephalic, atraumatic. No JVD. CARDIOVASCULAR: Systolic ejection murmur at the lower left sternal border. Positive S3 gallop. LUNGS: Minimal/less crackles at the bases. Very minimal/less rhonchi. No wheezing. GI: Abdomen is soft, nontender and nondistended. Bowel sounds are positive. EXTREMITIES: Mild edema. No cyanosis, no clubbing. Calves are nontender to palpation. SKIN: No acute rash. NEUROLOGIC: Exam limited at the present time. PERTINENT LABORATORY DATA: Chest x-ray was done this morning and reviewed. The chest x-ray remains significantly improved overall. There is much less pulmonary vascular congestion. The right lower lobe changes also continue to resolve. Arterial blood gas was also done on 1 liter nasal cannula. Results are: PH 7.33, pCO2 61, pO2 of 112. IMPRESSION: 1. Respiratory failure. 2. Acute congestive heart failure. 3. Advanced chronic obstructive pulmonary disease. 4. Right lower lobe pneumonia. 5. Rule out myocardial infarction. 6. Paroxysmal atrial fibrillation. 7. Renal insufficiency. PLAN: The patient appears very comfortable this morning. She is awake and alert. She is not short of breath at rest. She does state to feeling much better overall. I did discuss the case with the night nurse at length. The night nurse stated the patient is doing very well overall. I did review the chest x-ray from this morning. The chest x-ray continues to improve. Findings are noted above. I have also reviewed the arterial blood gas. The arterial blood gas also continues to improve. There is a mild respiratory acidosis noted. There is a significant decrease in the alveolar-arterial gradient. We will continue the patient on 1 liter nasal cannula during the day. She will be on BiPAP at night. On physical exam, there is significantly less bronchospasm noted. I will continue the current nebulizer treatments and low-dose intravenous steroids (decreased by the ICU team yesterday) for now. The patient remains on antibiotic therapy - as per Infectious Disease. Temperatures have resolved. The leukocytosis is resolving. Inputs by Cardiology and Renal are also noted. Clinical status of the patient has significantly improved overall. However, given the above, the future status/prognosis for this patient does remain somewhat guarded. I will discuss the above with the entire ICU team in the next few moments. I will also discuss the above with the attending physician later this morning. Bhupinder Chiang MD [facility]
--- NOTE | 2018-10-31 11:12 | CARD ---
APPROVED REPORT Date of service: 10/31/2018 EKG Measurement Heart [id number] <Conclusion> Electronic atrial pacemaker Left axis deviation Right bundle branch block Inferior infarct, age undetermined T wave abnormality, consider lateral ischemia Abnormal ECG
[2018-10-31] MEDS: Insulin Reg-HIGH-Coverage SC SCH ×4 (11:59→22:14)
--- NOTE | 2018-10-31 12:25 | CP.PCM.PN ---
<Mathew Vigil - Last Filed: 10/31/18 12:22> Subjective - Date & Time of Evaluation Date of Evaluation: 10/31/18 Time of Evaluation: 07:50 - Subjective Subjective: Mathew Vigil D.O. PGY-3, Internal Medicine Resident, Infectious Disease Progress Note 73 year old female admitted to ICU for hypertensive emergency complicated by ventilator dependent hypercapnic respiratory failure in the setting of cardior enal syndrome, hospital course complicated for pseudomonas UTI and pyelonephritis. Infectious disease consultation was requested for pneumonia. Patient was seen and examined at bedside. Daughter at bedside. Feeling well at this time. No acute complaints. Objective - Vital Signs/Intake and Output Vital Signs (last 24 hours): Temp Pulse Resp BP Pulse Ox 97.7 F 64 20 169/89 H 98 10/29/18 05:00 10/31/18 09:42 10/31/18 03:14 10/31/18 09:42 10/30/18 16:20 - Medications Medications: Current Medications Acetaminophen (Tylenol 325mg Tab) 650 mg PO Q6H PRN PRN Reason: Fever >100.4 F Last Admin: 10/21/18 16:47 Dose: 650 mg Albuterol/Ipratropium (Duoneb 3 Mg/0.5 Mg (3 Ml) Ud) 3 ml IH Q2H PRN PRN Reason: Shortness of Breath Last Admin: 10/19/18 10:38 Dose: 3 ml Amiodarone HCl (Cordarone) 200 mg PO DAILY [facility] Last Admin: 10/31/18 09:42 Dose: 200 mg Apixaban (Eliquis) 2.5 mg PO BID [facility]; Protocol Last Admin: 10/31/18 09:37 Dose: 2.5 mg Atorvastatin Calcium (Lipitor) 40 mg PO DAILY [facility] Last Admin: 10/31/18 09:36 Dose: 40 mg Budesonide (Pulmicort Respules) 0.5 mg IH [id number] [facility] Last Admin: 10/31/18 08:36 Dose: 0.5 mg Dextrose (Dextrose 50% Inj) 0 ml IV STAT PRN; Protocol PRN Reason: Hypoglycemia Protocol Folic Acid (Folic Acid) 1 mg PO DAILY [facility] Last Admin: 10/31/18 09:41 Dose: 1 mg Hydralazine HCl (Apresoline) 50 mg PO BID [facility] Last Admin: 10/31/18 09:42 Dose: 50 mg Hydralazine HCl (Apresoline) 10 mg IVP Q4 PRN PRN Reason: SBP > 180 Last Admin: 10/28/18 15:50 Dose: 10 mg Nicardipine HCl (Cardene Iv Premix) 20 mg in 200 mls @ 50 mls/hr IV .Q4H PRN; Protocol PRN Reason: TITRATE PER MD ORDER Last Titration: 10/24/18 07:15 Dose: 0 mg/hr, 0 mls/hr Midazolam 100 mg/100ml in NS (Midazolam 100 Mg/100ml In Ns) 100 mg in 100 mls @ 1 mls/hr IV .Q24H PRN; Protocol PRN Reason: Sedation Last Titration: 10/25/18 06:53 Dose: 0 mg/hr, 0 mls/hr Dextrose (Dextrose 5% In Water 1000 Ml) 1,000 mls @ 0 mls/hr IV .Q0M PRN; Protocol PRN Reason: Hypoglycemia Protocol Insulin Human Regular 100 (units/ Sodium Chloride) 100 mls @ 6 mls/hr IV .[id number] PRN; Protocol PRN Reason: TITRATE PER MD ORDER Last Titration: 10/30/18 11:00 Dose: 3 units/hr, 3 mls/hr Insulin Human Regular (Humulin R High) 0 units SC ACHS [facility]; Protocol Last Admin: 10/31/18 11:59 Dose: 10 units Levalbuterol HCl (Xopenex) 1.25 mg IH [id number] [facility] Last Admin: 10/31/18 08:36 Dose: 1.25 mg Methylprednisolone (Solu-Medrol) 20 mg IVP Q12 LINDA Last Admin: 10/31/18 09:41 Dose: 20 mg Metoprolol Tartrate (Lopressor) 50 mg PO BID LINDA Last Admin: 10/31/18 09:36 Dose: 50 mg Montelukast Sodium (Singulair) 10 mg PO HS [facility] Last Admin: 10/30/18 21:18 Dose: 10 mg Ondansetron HCl (Zofran Inj) 4 mg IVP Q6H PRN PRN Reason: Nausea/Vomiting Last Admin: 10/19/18 07:55 Dose: 4 mg Pantoprazole Sodium (Protonix Ec Tab) 40 mg PO 0600 [facility] Last Admin: 10/31/18 09:40 Dose: 40 mg Polyethylene Glycol (Miralax) 17 gm PO BID [facility] Last Admin: 10/31/18 09:40 Dose: Not Given Pregabalin (Lyrica) 75 mg PO BID [facility] Last Admin: 10/24/18 09:45 Dose: 75 mg Sildenafil Citrate (Revatio) 20 mg PO BID [facility] Last Admin: 10/31/18 09:41 Dose: 20 mg Verapamil HCl (Verapamil Inj) 2.5 mg IVP Q6H PRN PRN Reason: for Heart rate >120 Last Admin: 10/26/18 02:12 Dose: 2.5 mg Verapamil HCl (Calan Sr Tab) 240 mg PO DAILY [facility] Last Admin: 10/31/18 09:36 Dose: 240 mg Vitamin A (Vitamin A & D Oint Ud Foilpak) 1 ea TOP BID [facility] Last Admin: 10/31/18 09:43 Dose: 1 ea - Labs Labs: 10/31/18 05:30 10/31/18 05:30 PT 14.8 SECONDS (9.4-12.5) H 10/23/18 14:00 INR 1.33 10/23/18 14:00 APTT 26.6 Seconds (26.9-38.3) L 10/23/18 14:00 - Constitutional Appears: Non-toxic, Chronically Ill, pleasant elderly female - Head Exam Head Exam: ATRAUMATIC, NC - Eye Exam Eye Exam: EOMI - ENT Exam ENT Exam: Mucous Membranes Moist - Neck Exam Neck Exam: Normal Inspection - Cardiovascular Exam Cardiovascular Exam: S1, S2 - GI/Abdominal Exam GI & Abdominal Exam: Soft - Extremities Exam Extremities Exam: absent: Tenderness - Neurological Exam Neurological Exam: Alert, Awake - Skin Skin Exam: Dry, Warm Assessment and Plan - Assessment and Plan (Free Text) Assessment: 73 year old female admitted to ICU for hypertensive emergency complicated by ventilator dependent hypercapnic respiratory failure in the setting of cardiorenal syndrome, hospital course complicated for pseudomonas UTI and pyelonephritis. Infectious disease consultation was requested for pneumonia. Plan: Pseudomonas UTI and pyelonephritis HAP Continue meropenem now day 14 of 14 Repeat urine noted, appears markedly improved Will continue to follow Patient was seen and examined and case to be discussed with attending physician Thank you for the pleasure of participating in the care of this interesting patient <Juan Miguel Malone - Last Filed: 10/31/18 13:19> Objective - Vital Signs/Intake and Output Vital Signs (last 24 hours): Temp Pulse Resp BP Pulse Ox 97.7 F 65 27 H 146/50 L 96 10/29/18 05:00 10/31/18 11:50 10/31/18 11:50 10/31/18 11:00 10/31/18 11:50 - Medications Medications: Current Medications Acetaminophen (Tylenol 325mg Tab) 650 mg PO Q6H PRN PRN Reason: Fever >100.4 F Last Admin: 10/21/18 16:47 Dose: 650 mg Albuterol/Ipratropium (Duoneb 3 Mg/0.5 Mg (3 Ml) Ud) 3 ml IH Q2H PRN PRN Reason: Shortness of Breath Last Admin: 10/19/18 10:38 Dose: 3 ml Amiodarone HCl (Cordarone) 200 mg PO DAILY [facility] Last Admin: 10/31/18 09:42 Dose: 200 mg Apixaban (Eliquis) 2.5 mg PO BID [facility]; Protocol Last Admin: 10/31/18 09:37 Dose: 2.5 mg Atorvastatin Calcium (Lipitor) 40 mg PO DAILY [facility] Last Admin: 10/31/18 09:36 Dose: 40 mg Budesonide (Pulmicort Respules) 0.5 mg IH [id number] [facility] Last Admin: 10/31/18 08:36 Dose: 0.5 mg Dextrose (Dextrose 50% Inj) 0 ml IV STAT PRN; Protocol PRN Reason: Hypoglycemia Protocol Folic Acid (Folic Acid) 1 mg PO DAILY [facility] Last Admin: 10/31/18 09:41 Dose: 1 mg Hydralazine HCl (Apresoline) 50 mg PO BID [facility] Last Admin: 10/31/18 09:42 Dose: 50 mg Hydralazine HCl (Apresoline) 10 mg IVP Q4 PRN PRN Reason: SBP > 180 Last Admin: 10/28/18 15:50 Dose: 10 mg Nicardipine HCl (Cardene Iv Premix) 20 mg in 200 mls @ 50 mls/hr IV .Q4H PRN; Protocol PRN Reason: TITRATE PER MD ORDER Last Titration: 10/24/18 07:15 Dose: 0 mg/hr, 0 mls/hr Midazolam 100 mg/100ml in NS (Midazolam 100 Mg/100ml In Ns) 100 mg in 100 mls @ 1 mls/hr IV .Q24H PRN; Protocol PRN Reason: Sedation Last Titration: 10/25/18 06:53 Dose: 0 mg/hr, 0 mls/hr Dextrose (Dextrose 5% In Water 1000 Ml) 1,000 mls @ 0 mls/hr IV .Q0M PRN; Protocol PRN Reason: Hypoglycemia Protocol Insulin Human Regular 100 (units/ Sodium Chloride) 100 mls @ 6 mls/hr IV .[id number] PRN; Protocol PRN Reason: TITRATE PER MD ORDER Last Titration: 10/30/18 11:00 Dose: 3 units/hr, 3 mls/hr Insulin Human Regular (Humulin R High) 0 units SC ACHS [facility]; Protocol Last Admin: 10/31/18 11:59 Dose: 10 units Levalbuterol HCl (Xopenex) 1.25 mg IH [id number] [facility] Last Admin: 10/31/18 08:36 Dose: 1.25 mg Methylprednisolone (Solu-Medrol) 20 mg IVP Q12 [facility] Last Admin: 10/31/18 09:41 Dose: 20 mg Metoprolol Tartrate (Lopressor) 50 mg PO BID [facility] Last Admin: 10/31/18 09:36 Dose: 50 mg Montelukast Sodium (Singulair) 10 mg PO HS [facility] Last Admin: 10/30/18 21:18 Dose: 10 mg Ondansetron HCl (Zofran Inj) 4 mg IVP Q6H PRN PRN Reason: Nausea/Vomiting Last Admin: 10/19/18 07:55 Dose: 4 mg Pantoprazole Sodium (Protonix Ec Tab) 40 mg PO 0600 [facility] Last Admin: 10/31/18 09:40 Dose: 40 mg Polyethylene Glycol (Miralax) 17 gm PO BID [facility] Last Admin: 10/31/18 09:40 Dose: Not Given Pregabalin (Lyrica) 75 mg PO BID [facility] Last Admin: 10/24/18 09:45 Dose: 75 mg Sildenafil Citrate (Revatio) 20 mg PO BID [facility] Last Admin: 10/31/18 09:41 Dose: 20 mg Verapamil HCl (Verapamil Inj) 2.5 mg IVP Q6H PRN PRN Reason: for Heart rate >120 Last Admin: 10/26/18 02:12 Dose: 2.5 mg Verapamil HCl (Calan Sr Tab) 240 mg PO DAILY [facility] Last Admin: 10/31/18 09:36 Dose: 240 mg Vitamin A (Vitamin A & D Oint Ud Foilpak) 1 ea TOP BID [facility] Last Admin: 10/31/18 09:43 Dose: 1 ea - Labs Labs: 10/31/18 05:30 10/31/18 05:30 PT 14.8 SECONDS (9.4-12.5) H 10/23/18 14:00 INR 1.33 10/23/18 14:00 APTT 26.6 Seconds (26.9-38.3) L 10/23/18 14:00 Attending/Attestation - Attestation I have personally seen and examined this patient.: Yes I have fully participated in the care of the patient.: Yes I have reviewed all pertinent clinical information, including history, physical exam and plan: Yes
--- NOTE | 2018-10-31 13:20 | PN ---
DATE: 10/31/2018 SUBJECTIVE: The patient is 73 years old, seen and examined, lying in bed, seems to be comfortable. Mild shortness of breath. AFib is under control. Daughter by the bedside, eating her fruit bowl, being fed. PHYSICAL EXAMINATION VITAL SIGNS: She is afebrile, pulse 64, respirations 20, blood pressure 169/89. LUNGS: Bilateral diffuse decreased breath sounds. Occasional expiratory rhonchi. HEART: S1 and S2 audible. ABDOMEN: Soft, obese, nontender. No rebound, no guarding. NEUROLOGIC: She is awake and alert, able to communicate. LABORATORY DATA: WBC is 11.1, hemoglobin 10.9, hematocrit 36.1, platelet of 193. Chemistry: Sodium 149, potassium 5.4, chloride 112, CO2 of 31, BUN 116, creatinine 2.8, blood sugar of 314. ASSESSMENT 1. Bilateral pneumonia. 2. Pseudomonas aeruginosa pyelonephritis. 3. Congestive heart failure. 4. Pulmonary hypertension. 5. Noninsulin-dependent diabetes. 6. Deconditioning and difficulty walking. PLAN: We will continue the patient on current regimen. She is on hydralazine 50 mg twice a day, verapamil 250 mg daily, amiodarone 200 mg daily. She is on nebulizer treatment. She is on Eliquis. She is getting folic acid. She is on atorvastatin, metoprolol, and gabapentin. Currently, she is off antibiotics. The patient is currently stable from Cardiology and Pulmonary point of view. Her kidney function seems to be awaiting. Her 24-hour urinalysis was in . Laurel Schultz MD
--- NOTE | 2018-10-31 18:48 | PN ---
DATE: 10/31/2018 REASON FOR CONSULTATION AND FOLLOWUP: Coronary artery disease, COPD, history of PTCA, history of CABG, history of atrial fibrillation, pacemaker, admitted with worsening renal insufficiency, pneumonia; requiring intubation, now patient successfully extubated. SUBJECTIVE: Denies any chest pain, shortness of breath, or any palpitation. PHYSICAL EXAMINATION: GENERAL: Not in apparent distress. Much awake and alert. VITAL SIGNS: Temperature afebrile, heart rate 65, blood pressure 146/50. HEENT: PERRLA. Extraocular muscles intact. NECK: Supple. No carotid bruit. No thyromegaly. CHEST: Clear to auscultation. HEART: S1 and S2, regular. ABDOMEN: Soft. EXTREMITIES: Clubbing and cyanosis, negative. LABORATORY DATA: Blood workup WBC 11.1, hemoglobin 10.6, hematocrit 36.1, platelet count 193. Chemistries shows sodium 149, potassium 5.4, chloride 101, carbon dioxide 31, anion gap of 11, BUN 116, creatinine 2.8. IMPRESSION: A 73-year-old female with past medical history significant for coronary artery disease, coronary artery bypass graft three vessels in 2014 status post percutaneous transluminal coronary angioplasty of [place] right, graft to the right coronary artery occluded, history of chronic renal insufficiency, history of permanent pacemaker, history of paroxysmal atrial fibrillation, history of chronic kidney disease, admitted with pneumonia, worsening renal insufficiency, pulmonary hypertension, intubated, now successfully extubated rapid ventricular rate, now rate is well controlled. EKG showed ventricular-paced rhythm underlying normal sinus. RECOMMENDATIONS: Avoid nephrotoxic medication. Continue hydralazine. Continue verapamil, it is well controlled. Continue Eliquis. Monitor renal function. Okay to transfer to telemetry. Continue Revatio. Discussed with the daughter about the patient's condition . We will follow with you. Sapna Latif MD
--- NOTE | 2018-10-31 22:44 | PN ---
DATE: 10/31/2018 SUBJECTIVE: The patient is seen lying in bed in the ICU. She appears to be in moderate respiratory distress. She cannot talk in full sentences. She is somewhat confused, sluggish, demented. PHYSICAL EXAMINATION GENERAL: Obese, elderly lady lying in bed. VITAL SIGNS: Blood pressure 150/37, heart rate 60, respiratory rate 24 to 32, and temperature 98.4. HEENT: Normocephalic and atraumatic. Positive pallor. NECK: Supple. No JVD. LUNGS: Bilateral equal air entry, bilateral rhonchi, distant breath sounds. CARDIAC: S1 and S2. Regular rate and rhythm. Positive murmur. No rub. ABDOMEN: Distended, soft, and nontender. Bowel sounds present. EXTREMITIES: No lower extremity edema. INTAKE AND OUTPUT: 340/1000. LABORATORY DATA: WBC 11, hemoglobin 10.9, hematocrit 36, and platelets 193. Sodium 149, potassium 5.4, chloride 112, CO2 of 31, BUN 116, creatinine 2.8, glucose 293, calcium 9.7. Urinalysis; yellow, slightly cloudy, pH of 5.5. Specific gravity 1.020, protein 30, ketones negative. Blood large, rbc numerous to count, wbc 15 to 20. Creatinine clearance 24 mL/minute. CURRENT MEDICATIONS: Apresoline 50 b.i.d., Calan 240, Cordarone 200 daily, Eliquis 2.5 mg b.i.d., folic acid, Lipitor 40, Lopressor 50 b.i.d., Lyrica 75 on hold, Protonix, Pulmicort, Revatio, Solu-Medrol 20 every 12 hours, and Tylenol. ASSESSMENT: 1. Status post respiratory failure, now extubated. 2. Chronic obstructive pulmonary disease, pulmonary hypertension. 3. Right ventricular failure. 4. Acute kidney injury, superimposed on chronic renal disease, stage IV. 5. Hypernatremia/intravascular volume depletion. 6. Hyperkalemia. PLAN: 1. We will continue to monitor closely. Since creatinine clearance is 24, we will hold of on dialysis. 2. Continue respiratory treatment. 3. Continue Revatio. 4. Follow 2 g potassium diet. 5. Push p.o. free fluids. 6. Tenuous respiratory situation. Doris Antunez MD [facility] # [id number]
--- NOTE | 2018-11-01 00:38 | CP.PCM.PN ---
<Nilo Lazo - Last Filed: 11/01/18 00:35> Subjective - Date & Time of Evaluation Date of Evaluation: 11/01/18 Time of Evaluation: 00:35 - Subjective Subjective: House staff paged for shortness of breath. Patient seen and examined tolerating Bipap well. Does not appear to be in any acute respiratory distress. Patient sitting up comfortably in bed on bipap. Objective - Vital Signs/Intake and Output Vital Signs (last 24 hours): Temp Pulse Resp BP Pulse Ox 98.4 F 60 14 187/63 H 87 L 10/31/18 16:00 10/31/18 22:50 10/31/18 16:20 10/31/18 22:50 10/31/18 16:20 Intake and Output: 10/31/18 11/01/18 18:59 06:59 Intake Total 340 0 Output Total 1000 0 Balance -660 0 - Medications Medications: Current Medications Acetaminophen (Tylenol 325mg Tab) 650 mg PO Q6H PRN PRN Reason: Fever >100.4 F Last Admin: 10/21/18 16:47 Dose: 650 mg Acetaminophen (Tylenol 325mg Tab) 650 mg PO ONCE ONE Stop: 11/01/18 00:35 Albuterol/Ipratropium (Duoneb 3 Mg/0.5 Mg (3 Ml) Ud) 3 ml IH Q2H PRN PRN Reason: Shortness of Breath Last Admin: 10/19/18 10:38 Dose: 3 ml Amiodarone HCl (Cordarone) 200 mg PO DAILY [facility] Last Admin: 10/31/18 09:42 Dose: 200 mg Apixaban (Eliquis) 2.5 mg PO BID [facility]; Protocol Last Admin: 10/31/18 17:06 Dose: 2.5 mg Atorvastatin Calcium (Lipitor) 40 mg PO DAILY [facility] Last Admin: 10/31/18 09:36 Dose: 40 mg Budesonide (Pulmicort Respules) 0.5 mg IH [id number] [facility] Last Admin: 10/31/18 20:10 Dose: 0.5 mg Dextrose (Dextrose 50% Inj) 0 ml IV STAT PRN; Protocol PRN Reason: Hypoglycemia Protocol Folic Acid (Folic Acid) 1 mg PO DAILY [facility] Last Admin: 10/31/18 09:41 Dose: 1 mg Hydralazine HCl (Apresoline) 50 mg PO BID [facility] Last Admin: 10/31/18 17:06 Dose: 50 mg Hydralazine HCl (Apresoline) 10 mg IVP Q4 PRN PRN Reason: SBP > 180 Last Admin: 10/31/18 22:50 Dose: 10 mg Nicardipine HCl (Cardene Iv Premix) 20 mg in 200 mls @ 50 mls/hr IV .Q4H PRN; Protocol PRN Reason: TITRATE PER MD ORDER Last Titration: 10/24/18 07:15 Dose: 0 mg/hr, 0 mls/hr Midazolam 100 mg/100ml in NS (Midazolam 100 Mg/100ml In Ns) 100 mg in 100 mls @ 1 mls/hr IV .Q24H PRN; Protocol PRN Reason: Sedation Last Titration: 10/25/18 06:53 Dose: 0 mg/hr, 0 mls/hr Dextrose (Dextrose 5% In Water 1000 Ml) 1,000 mls @ 0 mls/hr IV .Q0M PRN; Protocol PRN Reason: Hypoglycemia Protocol Insulin Human Regular 100 (units/ Sodium Chloride) 100 mls @ 6 mls/hr IV .[id number] PRN; Protocol PRN Reason: TITRATE PER MD ORDER Last Titration: 10/30/18 11:00 Dose: 3 units/hr, 3 mls/hr Insulin Human Regular (Humulin R High) 0 units SC ACHS [facility]; Protocol Last Admin: 10/31/18 22:14 Dose: Not Given Levalbuterol HCl (Xopenex) 1.25 mg IH [id number] [facility] Last Admin: 10/31/18 20:14 Dose: 1.25 mg Methylprednisolone (Solu-Medrol) 20 mg IVP Q12 [facility] Last Admin: 10/31/18 09:41 Dose: 20 mg Metoprolol Tartrate (Lopressor) 50 mg PO BID [facility] Last Admin: 10/31/18 17:07 Dose: 50 mg Montelukast Sodium (Singulair) 10 mg PO HS [facility] Last Admin: 10/31/18 22:14 Dose: 10 mg Ondansetron HCl (Zofran Inj) 4 mg IVP Q6H PRN PRN Reason: Nausea/Vomiting Last Admin: 10/19/18 07:55 Dose: 4 mg Pantoprazole Sodium (Protonix Ec Tab) 40 mg PO 0600 [facility] Last Admin: 10/31/18 09:40 Dose: 40 mg Polyethylene Glycol (Miralax) 17 gm PO BID [facility] Last Admin: 10/31/18 17:12 Dose: Not Given Pregabalin (Lyrica) 75 mg PO BID [facility] Last Admin: 10/24/18 09:45 Dose: 75 mg Sildenafil Citrate (Revatio) 20 mg PO BID [facility] Last Admin: 10/31/18 17:12 Dose: 20 mg Verapamil HCl (Verapamil Inj) 2.5 mg IVP Q6H PRN PRN Reason: for Heart rate >120 Last Admin: 10/26/18 02:12 Dose: 2.5 mg Verapamil HCl (Calan Sr Tab) 240 mg PO DAILY [facility] Last Admin: 10/31/18 09:36 Dose: 240 mg Vitamin A (Vitamin A & D Oint Ud Foilpak) 1 ea TOP BID [facility] Last Admin: 10/31/18 17:13 Dose: 1 ea - Labs Labs: 10/31/18 05:30 10/31/18 17:48 PT 14.8 SECONDS (9.4-12.5) H 10/23/18 14:00 INR 1.33 10/23/18 14:00 APTT 26.6 Seconds (26.9-38.3) L 10/23/18 14:00 - Constitutional Appears: No Acute Distress - Head Exam Head Exam: ATRAUMATIC, NORMOCEPHALIC - Eye Exam Eye Exam: EOMI, PERRL - ENT Exam ENT Exam: Mucous Membranes Moist - Respiratory Exam Respiratory Exam: Clear to Ausculation Bilateral. absent: Rales, Rhonchi, Wheezes - Cardiovascular Exam Cardiovascular Exam: REGULAR RHYTHM, RRR, +S1, +S2. absent: Gallop, Rubs, Murmur - Neurological Exam Neurological Exam: Alert, Awake, Oriented x3 - Skin Skin Exam: Dry, Warm Assessment and Plan - Assessment and Plan (Free Text) Plan: Continue nightly Bipap, patient tolerating well and states SOB has improved May give duo-neb treatment PRN Informed nursing staff to notify of any changes <Mini Juárez - Last Filed: 11/13/18 21:05> Objective - Vital Signs/Intake and Output Vital Signs (last 24 hours): Temp Pulse Resp BP Pulse Ox 98 F 95 H 18 171/52 H 100 03/26/19 06:00 11/12/18 09:20 11/12/18 06:00 11/12/18 10:00 11/12/18 06:00 - Labs Labs: 11/11/18 06:45 11/11/18 08:00 PT 14.8 SECONDS (9.4-12.5) H 10/23/18 14:00 INR 1.33 10/23/18 14:00 APTT 26.6 Seconds (26.9-38.3) L 10/23/18 14:00 Attending/Attestation - Attestation I have personally seen and examined this patient.: Yes I have fully participated in the care of the patient.: Yes I have reviewed all pertinent clinical information, including history, physical exam and plan: Yes Notes (Text): 11/13/18 21:04 Patient was seen by me and medical record was reviewed. Agree with resident physician's documentation.
[2018-11-01] MEDS: Levalbuterol 1.25 MG/3 ML Inhal Soln UD IH SCH ×4 (04:24→19:27)
[2018-11-01] MEDS: Budesonide 0.5 mg/2 ml Inhal Susp UD IH SCH ×2 (07:32→19:27)
[2018-11-01] MEDS: Pantoprazole 40 mg EC Tab PO SCH (08:18)
[2018-11-01] MEDS: Insulin Reg-HIGH-Coverage SC SCH ×4 (08:19→21:17)
[2018-11-01 08:52] LABS: LYMPH # 0.7 (1.2-3.4); LYMPH % 4.4 % (22.0-35.0); MEAN CELL VOLUME 91.4 fl (80.0-105.0); MEAN CORPUSCULAR HEMOGLOBIN 26.7 pg (25.0-35.0); MEAN CORPUSCULAR HGB CONC 29.2 g/dl (31.0-37.0); MONO # 0.2 (0.1-0.6); MONO % 1.1 % (1.0-6.0); PLATELET COUNT 187 10^3/uL (120.0-450.0); RBC 3.74 10^6/uL (3.5-6.1); RED CELL DISTRIBUTION WIDTH 16.3 % (11.5-14.5); WHITE BLOOD COUNT 15.3 10^3/uL (4.5-11.0)
[2018-11-01 09:25] LABS: ALB/GLOB RATIO 1.2 (1.1-1.8); ALBUMIN 3.6 g/dL (3.0-4.8); CALCIUM 9.9 mg/dL (8.4-10.5)
--- NOTE | 2018-11-01 09:30 | PN ---
DATE: 11/01/2018 SUBJECTIVE: The patient appears comfortable this morning. She is not short of breath at rest. She is awake and alert. PHYSICAL EXAMINATION: VITAL SIGNS: Temperature 98.1, pulse 62, respirations 17, blood pressure 174/52. Oxygen saturation on nasal cannula is 98%. HEENT: Normocephalic, atraumatic. NECK: No JVD. CARDIOVASCULAR: Systolic ejection murmur at the lower left sternal border. Positive S3 gallop. LUNGS: Very minimal crackles at the bases. Very minimal/less rhonchi. No wheezing. EXTREMITIES: Mild edema. No cyanosis. No clubbing. Calves are nontender to palpation. GI: Abdomen is soft, nontender and nondistended. Bowel sounds are positive. SKIN: No acute rash. NEUROLOGIC: Exam limited at the present time. IMPRESSION: 1. Respiratory failure. 2. Acute congestive heart failure. 3. Advanced chronic obstructive pulmonary disease. 4. Right lower lobe pneumonia. 5. Rule out myocardial infarction. 6. Paroxysmal atrial fibrillation. 7. Renal insufficiency. PLAN: The patient appears very comfortable this morning. She is not short of breath at rest. She does state to feeling much better overall. I did discuss the case with the night nurse at length. The night nurse stated that the patient had a mostly uneventful night. I also discussed the case with the daughter at length. On physical exam, her bronchospasm continues to resolve. In addition, the alveolar-arterial gradient also continues to resolve. I will continue with the current nebulizer treatments and low-dose intravenous steroids for now. Inputs by Infectious Disease, Cardiology, and Renal are also noted. Clinical status of the patient is significantly improved overall. However, given the above, the future status/prognosis for this patient does remain guarded. I will discuss the above with the attending physician. Bhupinder Chiang MD MTDRichard
[2018-11-01] MEDS: Verapamil 120 mg ER Tab PO SCH (09:58)
[2018-11-01] MEDS: POLYETHYLENE GLYCOL 3350 17 GM/Dose PACKET PO SCH ×2 (09:58→17:24)
[2018-11-01] MEDS: MethylPREDNISolone 40 mg Vial IVP SCH ×2 (09:59→21:24)
[2018-11-01] MEDS: Sildenafil 20 MG TAB PO SCH ×2 (09:59→17:24)
[2018-11-01] MEDS: Vitamins A & D Oint UD Foilpak TOP SCH ×2 (10:00→18:33)
--- NOTE | 2018-11-01 10:55 | CP.PCM.PN ---
<Mathew Vigil - Last Filed: 11/01/18 10:48> Subjective - Date & Time of Evaluation Date of Evaluation: 11/01/18 Time of Evaluation: 09:35 - Subjective Subjective: Mathew Vigil D.O. PGY-3, Internal Medicine Resident, Infectious Disease Progress Note 73 year old female admitted to ICU for hypertensive emergency complicated by ventilator dependent hypercapnic respiratory failure in the setting of cardior enal syndrome, hospital course complicated for pseudomonas UTI and pyelonephritis. Infectious disease consultation was requested for pneumonia. Patient was seen and examined at bedside. Had some SOB overnight. Somewhat improved with BIPAP. Objective - Vital Signs/Intake and Output Vital Signs (last 24 hours): Temp Pulse Resp BP Pulse Ox 98.1 F 72 17 203/61 H 98 11/01/18 06:00 11/01/18 09:59 11/01/18 06:00 11/01/18 09:59 11/01/18 06:00 Intake and Output: 11/01/18 11/01/18 06:59 18:59 Intake Total 120 Output Total 620 Balance -500 - Medications Medications: Current Medications Acetaminophen (Tylenol 325mg Tab) 650 mg PO Q6H PRN PRN Reason: Fever >100.4 F Last Admin: 10/21/18 16:47 Dose: 650 mg Albuterol/Ipratropium (Duoneb 3 Mg/0.5 Mg (3 Ml) Ud) 3 ml IH Q2H PRN PRN Reason: Shortness of Breath Last Admin: 10/19/18 10:38 Dose: 3 ml Amiodarone HCl (Cordarone) 200 mg PO DAILY [facility] Last Admin: 11/01/18 09:59 Dose: 200 mg Apixaban (Eliquis) 2.5 mg PO BID [facility]; Protocol Last Admin: 11/01/18 09:59 Dose: 2.5 mg Atorvastatin Calcium (Lipitor) 40 mg PO DAILY [facility] Last Admin: 11/01/18 09:58 Dose: 40 mg Budesonide (Pulmicort Respules) 0.5 mg IH [id number] [facility] Last Admin: 11/01/18 07:32 Dose: 0.5 mg Dextrose (Dextrose 50% Inj) 0 ml IV STAT PRN; Protocol PRN Reason: Hypoglycemia Protocol Folic Acid (Folic Acid) 1 mg PO DAILY [facility] Last Admin: 11/01/18 09:59 Dose: 1 mg Hydralazine HCl (Apresoline) 50 mg PO BID [facility] Last Admin: 11/01/18 09:59 Dose: 50 mg Hydralazine HCl (Apresoline) 10 mg IVP Q4 PRN PRN Reason: SBP > 180 Last Admin: 10/31/18 22:50 Dose: 10 mg Nicardipine HCl (Cardene Iv Premix) 20 mg in 200 mls @ 50 mls/hr IV .Q4H PRN; Protocol PRN Reason: TITRATE PER MD ORDER Last Titration: 10/24/18 07:15 Dose: 0 mg/hr, 0 mls/hr Midazolam 100 mg/100ml in NS (Midazolam 100 Mg/100ml In Ns) 100 mg in 100 mls @ 1 mls/hr IV .Q24H PRN; Protocol PRN Reason: Sedation Last Titration: 10/25/18 06:53 Dose: 0 mg/hr, 0 mls/hr Dextrose (Dextrose 5% In Water 1000 Ml) 1,000 mls @ 0 mls/hr IV .Q0M PRN; Protocol PRN Reason: Hypoglycemia Protocol Insulin Human Regular 100 (units/ Sodium Chloride) 100 mls @ 6 mls/hr IV .[id number] PRN; Protocol PRN Reason: TITRATE PER MD ORDER Last Titration: 10/30/18 11:00 Dose: 3 units/hr, 3 mls/hr Insulin Human Regular (Humulin R High) 0 units SC ACHS [facility]; Protocol Last Admin: 11/01/18 08:19 Dose: 7 units Levalbuterol HCl (Xopenex) 1.25 mg IH [id number] [facility] Last Admin: 11/01/18 07:32 Dose: 1.25 mg Methylprednisolone (Solu-Medrol) 20 mg IVP Q12 [facility] Last Admin: 11/01/18 09:59 Dose: 20 mg Metoprolol Tartrate (Lopressor) 50 mg PO BID [facility] Last Admin: 11/01/18 09:58 Dose: 50 mg Montelukast Sodium (Singulair) 10 mg PO HS [facility] Last Admin: 10/31/18 22:14 Dose: 10 mg Ondansetron HCl (Zofran Inj) 4 mg IVP Q6H PRN PRN Reason: Nausea/Vomiting Last Admin: 10/19/18 07:55 Dose: 4 mg Pantoprazole Sodium (Protonix Ec Tab) 40 mg PO 0600 [facility] Last Admin: 11/01/18 08:18 Dose: 40 mg Polyethylene Glycol (Miralax) 17 gm PO BID [facility] Last Admin: 11/01/18 09:58 Dose: 17 gm Pregabalin (Lyrica) 75 mg PO BID [facility] Last Admin: 10/24/18 09:45 Dose: 75 mg Sildenafil Citrate (Revatio) 20 mg PO BID [facility] Last Admin: 11/01/18 09:59 Dose: 20 mg Verapamil HCl (Verapamil Inj) 2.5 mg IVP Q6H PRN PRN Reason: for Heart rate >120 Last Admin: 10/26/18 02:12 Dose: 2.5 mg Verapamil HCl (Calan Sr Tab) 240 mg PO DAILY [facility] Last Admin: 11/01/18 09:58 Dose: 240 mg Vitamin A (Vitamin A & D Oint Ud Foilpak) 1 ea TOP BID [facility] Last Admin: 11/01/18 10:00 Dose: 1 ea - Labs Labs: 11/01/18 08:30 11/01/18 08:30 PT 14.8 SECONDS (9.4-12.5) H 10/23/18 14:00 INR 1.33 10/23/18 14:00 APTT 26.6 Seconds (26.9-38.3) L 10/23/18 14:00 - Constitutional Appears: Non-toxic, Chronically Ill, pleasant elderly female - Head Exam Head Exam: ATRAUMATIC, NC - Eye Exam Eye Exam: EOMI - ENT Exam ENT Exam: Mucous Membranes Moist - Neck Exam Neck Exam: Normal Inspection - Cardiovascular Exam Cardiovascular Exam: S1, S2 - GI/Abdominal Exam GI & Abdominal Exam: Soft - Extremities Exam Extremities Exam: absent: Tenderness - Neurological Exam Neurological Exam: Alert, Awake - Skin Skin Exam: Dry, Warm Assessment and Plan - Assessment and Plan (Free Text) Assessment: 73 year old female admitted to ICU for hypertensive emergency complicated by ventilator dependent hypercapnic respiratory failure in the setting of cardiorenal syndrome, hospital course complicated for pseudomonas UTI and pyelonephritis. Infectious disease consultation was requested for pneumonia. Plan: Pseudomonas UTI and pyelonephritis HAP Finished 14 day course of meropenem Will monitor off abx at this time Leukocytosis likely 2/2 IV steroid use Pulmonary consultation appreciated Nephro consultation appreciated Will continue to follow Patient was seen and examined and case to be discussed with attending physician Thank you for the pleasure of participating in the care of this interesting patient <Juan Miguel Malone - Last Filed: 11/01/18 13:12> Objective - Vital Signs/Intake and Output Vital Signs (last 24 hours): Temp Pulse Resp BP Pulse Ox 98.2 F 56 L 19 149/50 L 98 11/01/18 12:00 11/01/18 13:00 11/01/18 12:00 11/01/18 12:00 11/01/18 06:00 Intake and Output: 11/01/18 11/01/18 06:59 18:59 Intake Total 120 Output Total 620 Balance -500 - Medications Medications: Current Medications Acetaminophen (Tylenol 325mg Tab) 650 mg PO Q6H PRN PRN Reason: Fever >100.4 F Last Admin: 10/21/18 16:47 Dose: 650 mg Albuterol/Ipratropium (Duoneb 3 Mg/0.5 Mg (3 Ml) Ud) 3 ml IH Q2H PRN PRN Reason: Shortness of Breath Last Admin: 10/19/18 10:38 Dose: 3 ml Alprazolam (Xanax) 0.25 mg PO BID PRN; Protocol PRN Reason: Anxiety Stop: 11/08/18 11:01 Last Admin: 11/01/18 11:06 Dose: 0.25 mg Amiodarone HCl (Cordarone) 200 mg PO DAILY [facility] Last Admin: 11/01/18 09:59 Dose: 200 mg Apixaban (Eliquis) 2.5 mg PO BID [facility]; Protocol Last Admin: 11/01/18 09:59 Dose: 2.5 mg Atorvastatin Calcium (Lipitor) 40 mg PO DAILY [facility] Last Admin: 11/01/18 09:58 Dose: 40 mg Budesonide (Pulmicort Respules) 0.5 mg IH [id number] [facility] Last Admin: 11/01/18 07:32 Dose: 0.5 mg Dextrose (Dextrose 50% Inj) 0 ml IV STAT PRN; Protocol PRN Reason: Hypoglycemia Protocol Folic Acid (Folic Acid) 1 mg PO DAILY [facility] Last Admin: 11/01/18 09:59 Dose: 1 mg Hydralazine HCl (Apresoline) 50 mg PO BID [facility] Last Admin: 11/01/18 09:59 Dose: 50 mg Hydralazine HCl (Apresoline) 10 mg IVP Q4 PRN PRN Reason: SBP > 180 Last Admin: 10/31/18 22:50 Dose: 10 mg Nicardipine HCl (Cardene Iv Premix) 20 mg in 200 mls @ 50 mls/hr IV .Q4H PRN; Protocol PRN Reason: TITRATE PER MD ORDER Last Titration: 10/24/18 07:15 Dose: 0 mg/hr, 0 mls/hr Dextrose (Dextrose 5% In Water 1000 Ml) 1,000 mls @ 0 mls/hr IV .Q0M PRN; Protocol PRN Reason: Hypoglycemia Protocol Insulin Human Regular (Humulin R High) 0 units SC ACHS [facility]; Protocol Last Admin: 11/01/18 12:09 Dose: 7 units Levalbuterol HCl (Xopenex) 1.25 mg IH [id number] [facility] Last Admin: 11/01/18 12:59 Dose: 1.25 mg Methylprednisolone (Solu-Medrol) 20 mg IVP Q12 [facility] Last Admin: 11/01/18 09:59 Dose: 20 mg Metoprolol Tartrate (Lopressor) 50 mg PO BID [facility] Last Admin: 11/01/18 09:58 Dose: 50 mg Montelukast Sodium (Singulair) 10 mg PO HS [facility] Last Admin: 10/31/18 22:14 Dose: 10 mg Ondansetron HCl (Zofran Inj) 4 mg IVP Q6H PRN PRN Reason: Nausea/Vomiting Last Admin: 10/19/18 07:55 Dose: 4 mg Pantoprazole Sodium (Protonix Ec Tab) 40 mg PO 0600 [facility] Last Admin: 11/01/18 08:18 Dose: 40 mg Polyethylene Glycol (Miralax) 17 gm PO BID [facility] Last Admin: 11/01/18 09:58 Dose: 17 gm Pregabalin (Lyrica) 75 mg PO BID [facility] Last Admin: 10/24/18 09:45 Dose: 75 mg Sildenafil Citrate (Revatio) 20 mg PO BID [facility] Last Admin: 11/01/18 09:59 Dose: 20 mg Verapamil HCl (Verapamil Inj) 2.5 mg IVP Q6H PRN PRN Reason: for Heart rate >120 Last Admin: 10/26/18 02:12 Dose: 2.5 mg Verapamil HCl (Calan Sr Tab) 240 mg PO DAILY [facility] Last Admin: 11/01/18 09:58 Dose: 240 mg Vitamin A (Vitamin A & D Oint Ud Foilpak) 1 ea TOP BID [facility] Last Admin: 11/01/18 10:00 Dose: 1 ea - Labs Labs: 11/01/18 08:30 11/01/18 08:30 PT 14.8 SECONDS (9.4-12.5) H 10/23/18 14:00 INR 1.33 10/23/18 14:00 APTT 26.6 Seconds (26.9-38.3) L 10/23/18 14:00 Attending/Attestation - Attestation I have personally seen and examined this patient.: Yes I have fully participated in the care of the patient.: Yes I have reviewed all pertinent clinical information, including history, physical exam and plan: Yes
--- NOTE | 2018-11-01 14:03 | PN ---
DATE: 11/01/2018 SUBJECTIVE: The patient is 73-year-old, seen and examined; seemed to be very restless, turning and tossing in the bed. Daughter by the bedside, seems to be anxious. PHYSICAL EXAMINATION: VITAL SIGNS: She is afebrile, pulse 56, respiration 19, and blood pressure 149/50. LUNGS: Bilateral fair airflow, but has diffusely decreased breath sounds. HEART: S1 and S2 audible. Irregular rate control. ABDOMEN: Soft, obese, and nontender. No rebound. No guarding. NEUROLOGIC: The patient is awake and alert; able to communicate. EXTREMITIES: Moves all extremities. Bilateral legs, no edema. LABORATORY DATA: WBC is 15.3, hemoglobin 10, hematocrit 34.2, and platelet of 187. Chemistry; sodium 152, potassium 5.7, chloride 115, CO2 of 28, BUN 116, creatinine 2.6, and blood sugar 303. Blood culture and urine culture, recent findings are negative. ASSESSMENT: 1. Status post respiratory failure, was successfully extubated. 2. Advanced chronic obstructive pulmonary disease. 3. Status post congestive heart failure, acute and chronic systolic. 4. Pulmonary hypertension. 5. Acute and chronic renal failure. 6. Hyperkalemia. 7. Noninsulin-dependent diabetes. 8. Bilateral knee osteoarthritis. PLAN: We will continue the patient on hydralazine and verapamil. She is on amiodarone 200 mg daily. She is on Eliquis. We will continue her on statins. She is on beta benita. She is on Revatio. We will monitor her respiratory status, taper down steroid. I will give her one dose of Kayexalate. We will follow up her electrolyte. Her dialysis is on hold her creatinine slowly coming down . Laurel Schultz MD
--- NOTE | 2018-11-01 18:36 | PN ---
DATE: 11/01/2018 SUBJECTIVE: The patient is seen lying in bed. She is on BiPAP. She was given Xanax earlier. She seemed to be resting comfortably at this time. PHYSICAL EXAMINATION GENERAL: Elderly lady lying in bed. VITAL SIGNS: Blood pressure 157/61, heart rate 60, respiratory rate 18 to 20, temperature 98.2. HEENT: Normocephalic, atraumatic, positive pallor. NECK: Supple, no JVD. CARDIOPULMONARY: Heart, S1, S2, regular rate rhythm, no murmur, no rub. LUNGS: Bilateral rhonchi, bilateral equal expansion, on BiPAP. ABDOMEN: Obese, distended, soft, nontender, bowel sounds present. EXTREMITIES: No lower extremity edema. INTAKE AND OUTPUT: [id number] LABORATORY DATA: WBC 15, hemoglobin 10, hematocrit 34, platelets 187. Sodium 152, potassium 5.7, chloride 115, CO2 of 28, BUN 116, creatinine 0.6, glucose 303, calcium 9.9. Creatinine clearance 24. CURRENT MEDICATIONS: Apresoline 50 mg b.i.d., Calan 240 mg, amiodarone 200 mg daily, Eliquis 2.5 mg b.i.d., folic acid 1 mg, Lipitor 40 mg, Lopressor 50 mg b.i.d., MiraLax 17 g b.i.d., Protonix 40 mg, Revatio 20 mg b.i.d., Singulair, Solu-Medrol, Tylenol, verapamil IV p.r.n., Xanax 0.25 mg b.i.d., Xopenex, Zofran. ASSESSMENT 1. Acute kidney injury superimposed on chronic kidney disease stage IV, renal parameters slowly improving. 2. Severe hypernatremia. 3. Hyperkalemia. 4. Chronic obstructive pulmonary disease, right heart failure, pulmonary hypertension. 5. Anemia of chronic kidney disease. 6. Leukocytosis,? secondary to steroids. PLAN 1. Since creatinine clearance is 24 ml/minute, where clinically the patient is somewhat improved, no plans for renal replacement therapy right now. 2. Kayexalate 30 g p.o. x1. 3. Continue MiraLax 17 g b.i.d. 4. A 5% dextrose at 40 mL/hour. 5. Push p.o. free water. 6. Continue respiratory treatments. 7. Monitor urine output. 8. Avoid nephrotoxins. 9. Discussed with family members. Doris Antunez MD
--- NOTE | 2018-11-01 22:21 | PN ---
DATE: 11/01/2018 REASON FOR CONSULTATION AND FOLLOWUP: Coronary artery disease, COPD, history of PTCA, history of CABG, history of atrial fibrillation, pacemaker, admitted with worsening renal insufficiency, status post respiratory failure, pneumonia, now successfully extubated to floor, worsening renal insufficiency. SUBJECTIVE: The patient denies any chest pain, shortness of breath, any palpitations. Daughter, Rk is at the bedside. OBJECTIVE GENERAL: Not in apparent distress. VITAL SIGNS: As follows: Temperature afebrile, heart rate 60, blood pressure 192/60. HEENT: PERRLA. Extraocular muscles intact. NECK: Supple. No carotid bruits or thyromegaly. CHEST: Clear to auscultation. HEART: S1, S2 regular. ABDOMEN: Soft. EXTREMITIES: Clubbing and cyanosis, negative. LABORATORY DATA: Blood workup: WBC , hemoglobin 10, hematocrit 34.2, platelet count 187. Chemistry shows sodium 152, potassium 5.7, chloride 115,carbon dioxide 28, anion gap of 14, BUN 6, creatinine 2.6, creatinine clearance 22 mL an hour. IMPRESSION: A 73-year-old female with past medical history significant for morbid obesity, history of pulmonary hypertension, history of coronary artery disease, history of coronary artery pass 2013, history of percutaneous transluminal coronary angioplasty of right coronary artery, saphenous vein graft to right coronary artery occluded, history of permanent pacemaker, history of proximal atrial fibrillation, history of chronic kidney disease, admitted with pneumonia and acute kidney injury requiring intubation, extubated successfully. On admission, the patient has very borderline troponin positive 0.04 and 0.12 in face of creatinine clearance 15 mL nonsignificant unknown. Discussed yesterday with the patient's daughter, Rk and Yudy, as well as Dr. Antunez this morning. The patient needs eventually possible dialysis depending upon the renal assessment. I doubt any component of this clinical deterioration secondary to cardiac problem because the patient had repeat echocardiogram done dated 10/19/2018, that revealed ejection fraction 55% to 60%, mild aortic stenosis versus aortic sclerosis, trace aortic regurgitation, trace mitral regurgitation, mild mitral stenosis, mild tricuspid regurgitation, right ventricular systolic pressure 55, history of pulmonary hypertension. Aggressive medical treatment. No plan for cardiac catheterization at this time because the patient has only indeterminate troponin in face of stage IV to V chronic kidney disease significant unknown. No compelling reason to do the cardiac catheterization, actually will made the patient worse and put the patient on dialysis. Discussed with the patient's family and the patient asymptomatic as of now. So, continue aggressive medical treatment. Continue verapamil 240 mg daily. Continue amiodarone to prevent going into rapid rate. Continue hydralazine. Avoid nephrotoxic medications. Continue metoprolol. Continue Revatio. The patient is already on renal dose of Eliquis. If the patient is going for placement of dialysis catheter, we will hold Eliquis, otherwise will continue. Overall, the patient condition critical. terminal computer operator prognosis guarded. Will follow with you. Though CV status is still holding, no plan for invasive cardiac workup as mentioned above. Thank you Dr. Schultz, for providing us the opportunity in taking care of the patient, Sobeida Emerson. Sapna Latif MD
--- NOTE | 2018-11-02 01:04 | CP.PCM.PN ---
Subjective - Date & Time of Evaluation Date of Evaluation: 11/02/18 Time of Evaluation: 01:02 - Subjective Subjective: Patient was seen at bedside. She complains of diffuse stomach pain. Can't describe in detail. Is on BiPAP . BP 189/64,HR 74/min.Afebrile. Denies nausea , diarrhoea. Medical record was reviewed. This 73 year old AA woman was admitted for increasing cough, congestion, fever, dyspnea, COPD exacerbation. Has PMH of : CHF COPD Pulmonary Hypertension CKD CAD NIDDM Diabetic neuropathy Chronic bilateral Osteoarthritis. Obesity-BMI 35.6 m2 Objective - Vital Signs/Intake and Output Vital Signs (last 24 hours): Temp Pulse Resp BP Pulse Ox 97.8 F 61 18 203/63 H 97 11/01/18 18:00 11/01/18 23:56 11/01/18 18:00 11/01/18 23:56 11/01/18 12:45 Intake and Output: 11/01/18 11/02/18 18:59 06:59 Intake Total 80 Balance 80 - Medications Medications: Current Medications Acetaminophen (Tylenol 325mg Tab) 650 mg PO Q6H PRN PRN Reason: Fever >100.4 F Last Admin: 10/21/18 16:47 Dose: 650 mg Albuterol/Ipratropium (Duoneb 3 Mg/0.5 Mg (3 Ml) Ud) 3 ml IH Q2H PRN PRN Reason: Shortness of Breath Last Admin: 10/19/18 10:38 Dose: 3 ml Alprazolam (Xanax) 0.25 mg PO BID PRN; Protocol PRN Reason: Anxiety Stop: 11/08/18 11:01 Last Admin: 11/01/18 11:06 Dose: 0.25 mg Amiodarone HCl (Cordarone) 200 mg PO DAILY [facility] Last Admin: 11/01/18 09:59 Dose: 200 mg Apixaban (Eliquis) 2.5 mg PO BID [facility]; Protocol Last Admin: 11/01/18 17:24 Dose: 2.5 mg Atorvastatin Calcium (Lipitor) 40 mg PO DAILY [facility] Last Admin: 11/01/18 09:58 Dose: 40 mg Budesonide (Pulmicort Respules) 0.5 mg IH [id number] [facility] Last Admin: 11/01/18 19:27 Dose: 0.5 mg Dextrose (Dextrose 50% Inj) 0 ml IV STAT PRN; Protocol PRN Reason: Hypoglycemia Protocol Folic Acid (Folic Acid) 1 mg PO DAILY [facility] Last Admin: 11/01/18 09:59 Dose: 1 mg Hydralazine HCl (Apresoline) 50 mg PO BID [facility] Last Admin: 11/01/18 18:32 Dose: Not Given Hydralazine HCl (Apresoline) 10 mg IVP Q4 PRN PRN Reason: SBP > 180 Last Admin: 11/01/18 23:56 Dose: 10 mg Nicardipine HCl (Cardene Iv Premix) 20 mg in 200 mls @ 50 mls/hr IV .Q4H PRN; Protocol PRN Reason: TITRATE PER MD ORDER Last Titration: 10/24/18 07:15 Dose: 0 mg/hr, 0 mls/hr Dextrose (Dextrose 5% In Water 1000 Ml) 1,000 mls @ 40 mls/hr IV .Q24H PRN; Protocol PRN Reason: Hypoglycemia Protocol Last Admin: 11/01/18 17:03 Dose: 40 mls/hr Insulin Human Regular (Humulin R High) 0 units SC ACHS [facility]; Protocol Last Admin: 11/01/18 21:17 Dose: Not Given Levalbuterol HCl (Xopenex) 1.25 mg IH [id number] [facility] Last Admin: 11/01/18 19:27 Dose: 1.25 mg Methylprednisolone (Solu-Medrol) 20 mg IVP Q12 [facility] Last Admin: 11/01/18 21:24 Dose: 20 mg Metoprolol Tartrate (Lopressor) 50 mg PO BID [facility] Last Admin: 11/01/18 17:24 Dose: 50 mg Montelukast Sodium (Singulair) 10 mg PO HS [facility] Last Admin: 11/01/18 21:17 Dose: Not Given Ondansetron HCl (Zofran Inj) 4 mg IVP Q6H PRN PRN Reason: Nausea/Vomiting Last Admin: 10/19/18 07:55 Dose: 4 mg Pantoprazole Sodium (Protonix Ec Tab) 40 mg PO 0600 [facility] Last Admin: 11/01/18 08:18 Dose: 40 mg Polyethylene Glycol (Miralax) 17 gm PO BID [facility] Last Admin: 11/01/18 17:24 Dose: 17 gm Pregabalin (Lyrica) 75 mg PO BID [facility] Last Admin: 10/24/18 09:45 Dose: 75 mg Sildenafil Citrate (Revatio) 20 mg PO BID [facility] Last Admin: 11/01/18 17:24 Dose: 20 mg Verapamil HCl (Verapamil Inj) 2.5 mg IVP Q6H PRN PRN Reason: for Heart rate >120 Last Admin: 10/26/18 02:12 Dose: 2.5 mg Verapamil HCl (Calan Sr Tab) 240 mg PO DAILY [facility] Last Admin: 11/01/18 09:58 Dose: 240 mg Vitamin A (Vitamin A & D Oint Ud Foilpak) 1 ea TOP BID [facility] Last Admin: 11/01/18 18:33 Dose: Not Given - Labs Labs: 11/01/18 08:30 11/01/18 08:30 PT 14.8 SECONDS (9.4-12.5) H 10/23/18 14:00 INR 1.33 10/23/18 14:00 APTT 26.6 Seconds (26.9-38.3) L 10/23/18 14:00 - Constitutional Appears: Well, No Acute Distress - Head Exam Head Exam: ATRAUMATIC, NORMAL INSPECTION, NORMOCEPHALIC Additional comments: Has BiPAP on. - Eye Exam Eye Exam: Normal appearance - ENT Exam ENT Exam: Normal External Ear Exam - Neck Exam Neck Exam: Normal Inspection - Respiratory Exam Respiratory Exam: NORMAL BREATHING PATTERN - Cardiovascular Exam Cardiovascular Exam: absent: JVD - GI/Abdominal Exam GI & Abdominal Exam: Soft, Normal Bowel Sounds. absent: Distended, Guarding, Tenderness, Organomegaly, Pulsatile Mass - Rectal Exam Rectal Exam: Deferred - Exam Additional comments: Deferred. - Extremities Exam Extremities Exam: Normal Inspection - Back Exam Back Exam: NORMAL INSPECTION - Neurological Exam Neurological Exam: Alert, Awake - Psychiatric Exam Psychiatric exam: Normal Affect, Normal Mood - Skin Skin Exam: Normal Color Assessment and Plan - Assessment and Plan (Free Text) Assessment: Hypertensive urgency Diffuse abdominal pain CHF COPD Pulmonary Hypertension CKD CAD NIDDM Diabetic neuropathy Chronic bilateral Osteoarthritis. Obesity-BMI 35.6 m2 Plan: Protonix 40 mg IV x 1. Hydralazine 10 mg IV x 1. Continue present management.
[2018-11-02] MEDS: Levalbuterol 1.25 MG/3 ML Inhal Soln UD IH SCH ×4 (01:24→21:00)
[2018-11-02] MEDS: Pantoprazole 40 mg EC Tab PO SCH (05:17)
--- NOTE | 2018-11-02 07:25 | PN ---
DATE: 11/02/2018 PULMONARY PROGRESS NOTE SUBJECTIVE: The patient appears comfortable this morning. She is not short of breath at rest. PHYSICAL EXAMINATION VITAL SIGNS: Temperature is 97.5, pulse 61, respirations 16, blood pressure 156/62. Oxygen saturation on BiPAP is 100%. HEENT: Normocephalic, atraumatic. No JVD. CARDIOVASCULAR: Systolic ejection murmur at the lower left sternal border. Positive S3 gallop. LUNGS: Minimal/less crackles at the bases. Minimal/less rhonchi. No wheezing. GI: Abdomen is soft, nontender and nondistended. Bowel sounds are positive. EXTREMITIES: Mild edema. No cyanosis, no clubbing. Calves are nontender to palpation. SKIN: No acute rash. NEUROLOGIC: Limited at the present time. IMPRESSION 1. Respiratory failure. 2. Acute congestive heart failure. 3. Advanced chronic obstructive pulmonary disease. 4. Right lower lobe pneumonia. 5. Rule out myocardial infarction. 6. Paroxysmal atrial fibrillation. 7. Renal insufficiency. PLAN: The patient appears very comfortable this morning. She is not short of breath at rest. She does state to feeling better overall. I did discuss the case with the night nurse and daughter at length. The patient had an uneventful night. On physical exam, there is no significant bronchospasm noted. In addition, there is no significant alveolar-arterial gradient. I will continue the current nebulizer treatments and low-dose intravenous steroids for now. Inputs by Cardiology, Renal, and Infectious Disease are also noted. The patient is now off of antibiotic therapy. There are no temperatures noted. Clinical status of the patient is significantly improved -- compared to the initial presentation. However, given the above, the future status/prognosis for this patient does remain guarded. I would like to see the patient out of bed if possible. I did discuss this issue with the daughter. She states that her two sisters will be here later in the morning. They will help. I will discuss the above with the attending physician. Bhupinder Chiang MD [facility]
[2018-11-02] MEDS: Budesonide 0.5 mg/2 ml Inhal Susp UD IH SCH ×2 (07:42→21:00)
[2018-11-02] MEDS: Insulin Reg-HIGH-Coverage SC SCH ×4 (07:52→22:38)
[2018-11-02] MEDS: Verapamil 120 mg ER Tab PO SCH (09:38)
[2018-11-02] MEDS: Sildenafil 20 MG TAB PO SCH ×2 (09:39→17:21)
[2018-11-02] MEDS: POLYETHYLENE GLYCOL 3350 17 GM/Dose PACKET PO SCH ×2 (09:39→17:21)
[2018-11-02] MEDS: Vitamins A & D Oint UD Foilpak TOP SCH ×2 (10:34→17:23)
[2018-11-02] MEDS: MethylPREDNISolone 40 mg Vial IVP SCH ×2 (10:34→21:27)
[2018-11-02 10:48] LABS: ALB/GLOB RATIO 1.1 (1.1-1.8); ALBUMIN 3.4 g/dL (3.0-4.8); CALCIUM 9.8 mg/dL (8.4-10.5)
--- NOTE | 2018-11-02 14:17 | PN ---
DATE: 11/02/2018 SUBJECTIVE: The patient is currently seen on telemetry. She is not responding to me. She is verbally noncommunicative. Her potassium once again is elevated today at 5.7. She does remain prerenal with a BUN of 116 and a creatinine of 2.6. Her CO2 level was 28. There was some discussion with family members about the possibility of initiating dialysis. The hope is that we can stabilize the patient without the need for renal replacement therapy. MEDICATIONS: Medication list reviewed. The patient is currently on hydralazine, Calan, amiodarone, D5W 40 an hour, DuoNeb, Eliquis, folic acid, Lipitor, Lopressor, insulin, MiraLax, Protonix, Pulmicort, Revatio, Singulair, Solu-Medrol, Tylenol, Xanax, Xopenex and Zofran p.r.n. PHYSICAL EXAMINATION: INTAKE/OUTPUT: Intake is 560, output is 500. VITAL SIGNS: Blood pressure is 156/62, temperature is 97.5, respiratory rate is 16 with a pulse ox of 100%. HEENT: Shows her to be normocephalic, atraumatic. Conjunctivae remain pale. Sclerae nonicteric. NECK: Supple. No neck vein distention. CHEST: No rales, rhonchi or wheezing with decreased breath sounds at the bases. CARDIOVASCULAR: Shows an irregular S1, S2 with MR/TR/AI/. No S3, no S4, no rub. ABDOMEN: Obese. Nondistended. Bowel sounds normal. No rebound, guarding or masses. EXTREMITIES: Show no lower extremity cyanosis, clubbing or edema. LABORATORY DATA AND IMAGING: CBC, white blood cell count from yesterday 15.3 with a hemoglobin of 10, platelet count is 187,000. Chemistries from yesterday showed a sodium of 152 with a potassium of 5.7. The patient did receive one dose of Kayexalate. BUN is 116 with a creatinine of 2.6. Glucose is 303. Repeat labs from today are pending. Microbiology, urine was positive for Pseudomonas. Blood cultures are positive for coag-negative staph from the early part of the hospitalization and her sputum was positive for yeast. ASSESSMENT: 1. Acute renal failure superimposed on chronic kidney disease stage III/IV. The patient continues to be mildly hyperkalemic. The patient would likely do well with taking a medication such as of Veltassa in the outpatient setting to keep her potassium level down. We will intermittently treat her with Kayexalate during the hospitalization. I do not think the patient would make a very good dialysis candidate. We will try and avoid the need to do dialysis unless the hyperkalemia becomes severely problematic and cannot be controlled with conservative measures. 2. History of chronic obstructive pulmonary disease with bilateral pneumonia. The patient has pulmonary nodules. She has completed a course of antibiotic therapy. 3. Status post respiratory failure status post intubation. 4. History of chronic anemia. Hemoglobin is stable at 10. This is in part secondary to chronic kidney disease probably secondary to bone marrow suppression from infection. 5. History of [id number] diabetes mellitus, currently stable on sliding scale insulin. 6. 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 7. History of pulmonary hypertension with valvular heart disease. The patient has an ejection fraction of 62%. PLAN: 1. Discussed with staff on 2R. We will repeat another set of labs today. We will avoid any medication that would elevate her potassium level such as DANIEL inhibitors, angiotensin receptor blockers or Aldactone. 2. No further antibiotics necessary. She was treated successfully for pneumonia and urinary tract infection. 3. Unfortunately, the patient's oral intake is very poor. She remains on low-dose fluid hydration. 4. If the patient is felt to not be able to pass a swallowing evaluation, perhaps evaluation for PEG tube placement as the patient cannot remain on IV fluids for the rest of her life. 5. No decision regarding dialysis for today. We will see what her labs are and see if we could treat her potassium conservatively. Stalin Ibanez MD
--- NOTE | 2018-11-02 15:25 | PN ---
DATE: 11/02/2018 SUBJECTIVE: The patient is a 73-year-old black female, seen and examined, seemed to be little agitated, does not want to eat. When she was being evaluated by speech and language therapist, she says "I don't want to eat anything because it is not going to go down." PHYSICAL EXAMINATION: VITAL SIGNS: She is afebrile, pulse 61, respirations 16, blood pressure 156/62. LUNGS: Bilateral diffusely decreased breath sounds. HEART: S1 and S2 audible. ABDOMEN: Soft, obese, nontender. No rebound. No guarding. NEUROLOGICAL: The patient is awake and alert, able to communicate. Has generalized weakness, able to move all extremities. No focal deficit. LABORATORY DATA: Chemistry; sodium 153, potassium 5.2, chloride 117, CO2 of 31, BUN 115, creatinine 2.5, blood sugar of 374. Urine cultures and blood cultures are negative. ASSESSMENT: 1. Bilateral pneumonia. 2. Coronary artery disease. 3. Status post pacemaker placement. 4. Pulmonary hypertension. 5. Chronic obstructive pulmonary disease. 6. Congestive heart failure. 7. Acute on chronic renal failure. 8. Uncontrolled diabetes. 9. Poor oral intake. PLAN: Currently, the patient is on verapamil, amiodarone, she is on 40 mL of IV fluids, she is on Eliquis. Blood sugar is being monitored. She has hypernatremia, needs p.o. fluid. She is on Protonix, Singulair. Her steroid is being tapered down. She is on DVT prophylaxis. She is on SCDs. Followup on her electrolyte and H and H. Laurel Schultz MD
--- NOTE | 2018-11-02 17:15 | PN ---
DATE: 11/02/2018 SUBJECTIVE: The patient seen earlier this morning in room 265, bed 1. No fevers. No chills. No nausea. No vomiting. PHYSICAL EXAMINATION VITAL SIGNS: Temperature is 97, blood pressure is 180/60, and respiratory rate of 18. HEENT: Examination of HEENT is unremarkable. NECK: Supple. LUNGS: Decreased breath sounds. HEART: Normal S1 and S2. ABDOMEN: Soft. LABORATORY DATA: Reveals the patient's white count of 15,300, hemoglobin of 10, and platelets of 187. Coagulation is noted. Chemistry reveals the BUN of 116, creatinine of 2.5. Urinalysis is noted. Immunology is noted and serology is reviewed. Review of orders reveals the patient to be now off antibiotics. ASSESSMENT AND PLAN: This is a 73-year-old female, who is seen earlier this morning in 265, bed 1 admitted with hypertensive emergency complicated by ventilatory dependent hypercapnic respiratory failure in setting of cardiorenal failure and hospital course complicated. The patient actually was admitted with Pseudomonas urinary tract infection and pyelonephritis, finished 14 days of Pseudomonas therapy completed by meropenem, and now off antibiotics, afebrile. The patient is at risk for developing nosocomial infection. Juan Miguel Malone MD
[2018-11-03] MEDS: Levalbuterol 1.25 MG/3 ML Inhal Soln UD IH SCH ×4 (02:55→19:31)
[2018-11-03] MEDS: Pantoprazole 40 mg EC Tab PO SCH (05:26)
[2018-11-03 07:41] LABS: HEMOGLOBIN 8.9 g/dL (12.0-16.0); MEAN CELL VOLUME 91.1 fl (80.0-105.0); MEAN CORPUSCULAR HEMOGLOBIN 26.3 pg (25.0-35.0); MEAN CORPUSCULAR HGB CONC 28.9 g/dl (31.0-37.0); PLATELET COUNT 158 10^3/uL (120.0-450.0); RBC 3.38 10^6/uL (3.5-6.1); RED CELL DISTRIBUTION WIDTH 16.5 % (11.5-14.5); WHITE BLOOD COUNT 10.8 10^3/uL (4.5-11.0)
[2018-11-03] MEDS: Budesonide 0.5 mg/2 ml Inhal Susp UD IH SCH ×2 (07:48→19:31)
[2018-11-03] MEDS: Insulin Reg-HIGH-Coverage SC SCH ×4 (08:07→22:47)
[2018-11-03 08:21] LABS: ALB/GLOB RATIO 1.1 (1.1-1.8); ALBUMIN 3.2 g/dL (3.0-4.8); CALCIUM 9.7 mg/dL (8.4-10.5)
--- NOTE | 2018-11-03 10:52 | PN ---
DATE: 11/03/2018 SUBJECTIVE: The patient is seen this morning in room 265. She is awake, which she had periods of confusion last night and had no fevers, no chills. OBJECTIVE: VITAL SIGNS: On exam, temperature is 97, blood pressure is 130/60, respiratory rate of 20, heart rate of 91. HEENT: Unremarkable. NECK: Supple. LUNGS: Have decreased breath sounds. HEART: Normal S1, S2. ABDOMEN: Soft, nontender. LABORATORY EXAMINATION: Reveals white count is down to 10.8, hemoglobin of 8, platelets of 158. Chemistries are noted, creatinine of 2.5. Urinalysis is noted. ASSESSMENT AND PLAN: This is a 73-year-old female who was seen earlier this morning, admitted with hypertensive emergency complicated by ventilator dependent hypercapnic respiratory failure in setting of cardiorenal failure and Pseudomonas urinary tract infection and pyelonephritis, has completed 14 days of Pseudomonas treatment. Currently off of antibiotics, afebrile, normal white count. The patient is at risk of developing nosocomial infections, did have a period of confusion last night. The patient is also on Solu-Medrol, Eliquis. Dr. Schultz's note is reviewed. The patient did have a CT scan of the abdomen and pelvis on 10/24/2018 which showed pyelonephritis, nonspecific perinephric stranding. Also had last chest x-ray was on 10/31/2018 which was no acute pulmonary disease.. We will follow with you. Juan Miguel Malone MD
[2018-11-03] MEDS: Verapamil 120 mg ER Tab PO SCH ×2 (11:15→18:25)
[2018-11-03] MEDS: MethylPREDNISolone 40 mg Vial IVP SCH ×2 (11:16→21:24)
[2018-11-03] MEDS: Sildenafil 20 MG TAB PO SCH ×2 (11:16→18:26)
[2018-11-03] MEDS: POLYETHYLENE GLYCOL 3350 17 GM/Dose PACKET PO SCH ×2 (11:16→18:22)
[2018-11-03] MEDS: Vitamins A & D Oint UD Foilpak TOP SCH ×2 (11:17→18:23)
--- NOTE | 2018-11-03 11:45 | PN ---
DATE: 11/03/2018 SUBJECTIVE: The patient appears comfortable this morning. She is not short of breath at rest. She is awake and alert. She does appear mildly confused. PHYSICAL EXAMINATION: VITAL SIGNS: Temperature is 97.9, pulse 85, respirations 20, blood pressure 130/63. Oxygen saturation on BiPap is 97%. HEENT: Normocephalic, atraumatic. No JVD. CARDIOVASCULAR: Systolic ejection murmur at the lower left sternal border. Positive S3 gallop. LUNGS: Minimal crackles at the bases. Minimal/less rhonchi. No wheezing. EXTREMITIES: Mild edema. No cyanosis, no clubbing. Calves are nontender to palpation. GASTROINTESTINAL: Abdomen is soft, nontender and nondistended. Bowel sounds are positive. SKIN: No acute rash. NEUROLOGIC: Exam limited at the present time. IMPRESSION: 1. Respiratory failure. 2. Acute congestive heart failure. 3. Advanced chronic obstructive pulmonary disease. 4. Right lower lobe pneumonia. 5. Rule out myocardial infarction. 6. Paroxysmal atrial fibrillation. 7. Renal insufficiency. PLAN: The patient appears very comfortable this morning. She is not short of breath at rest. She is awake and alert. She is mildly confused. I did discuss the case with the nurses at length. The nurses did inform me that the patient was confused yesterday, and she was not out of bed. We will try again this morning. On physical exam, there is no significant bronchospasm noted. In addition, there is no significant alveolar-arterial gradient. I will continue the current nebulizer treatments and low-dose intravenous steroids for now. The patient remains off antibiotic therapy. Input by Infectious Disease is noted. Repeat a.m. labs are pending. Inputs by Cardiology and Renal are also noted. Clinical status of the patient is certainly improved - compared to the earlier in the week. However, given the above, the future status/prognosis for this patient remains guarded. I will discuss the above with the attending physician this morning. Bhupinder Chiang MD [facility]
--- NOTE | 2018-11-03 13:19 | PN ---
DATE: 11/03/2018 SUBJECTIVE: The patient is currently seen restrained lying in bed on 2R. Her potassium level had improved with a dose of Kayexalate. She still remains very prerenal, her sodium levels once again rising. She only received a limited amount of hypotonic IV fluids. If agreeable, the patient should have a Dobhoff tube placed where we could give free water. There is some uncertainty with the family about what is the best way to proceed with this. My feeling is that we could keep the patient well hydrated dialysis will not even be a consideration. MEDICATIONS: Medication list reviewed. The patient is currently on hydralazine, Calan, amiodarone, DuoNeb, Eliquis, folic acid, insulin, Lopressor, Lipitor, MiraLax, Protonix, Pulmicort, Revatio, Singulair, Solu-Medrol, Tylenol p.r.n., verapamil p.r.n., Xanax, Xopenex, and Zofran. OBJECTIVE: INTAKE/OUTPUT: Intake is 480, output is 1100. VITAL SIGNS: Blood pressure is 130/63, temperature 97.9, pulse of 85, respiratory rate is 20. Oxygen saturation is 97%. HEENT: Shows her to be normocephalic, atraumatic. Conjunctivae remain pale. Sclerae nonicteric. NECK: Supple. No neck vein distention. CHEST: No rales, rhonchi, or wheezing with slight decreased breath sounds at the bases. CARDIOVASCULAR: Shows what appears to be irregular S1, S2 today. With MR/TR/AI/. No S3, no S4, no rub. ABDOMEN: Mildly obese. Nondistended. Bowel sounds normal. No rebound, guarding or masses. EXTREMITIES: Show no lower extremity cyanosis, clubbing, or edema with her lying supine in bed. LABORATORY DATA AND IMAGING STUDIES: CBC, white blood cell count 10.8, improved. Hemoglobin 8.9 lower. Platelet count is 158,000. Chemistries show sodium which is now up to 158, potassium 5.1, chloride 121, BUN 111 with a creatinine of 2.5. Glucose is 285. Calcium 9.7, phosphorus 3.9, magnesium level is 2.9. Albumin level was 3.2. Her baseline BUN is in the 30s with a baseline creatinine in the upper 1 to low 2 range. Microbiology, no recent positive cultures. ASSESSMENT: 1. Acute renal failure superimposed on chronic kidney disease stage III/IV. The patient has intermittent hyperkalemia. The patient remains volume depleted. She requires hypotonic fluids, the best fluid. We could give her would be the water through a possible Dobbhoff tube. We would need the agreement of family members prior to placing a Dobbhoff tube. I will leave this discussion up to Dr. Schultz to have with the family. In the interim, no choice other than to start her back on D5W. This will likely make her glucose control more difficult, but she is on sliding scale insulin. As explained to the nursing staff if we could hydrate this patient adequately that dialysis will likely not be a consideration and we could likely keep her potassium level in the normal range. 2. History of chronic obstructive pulmonary disease with bilateral pneumonia. The patient has pulmonary nodules. She has completed a course of antibiotic therapy. 3. Status post respiratory failure with intubation. 4. History of chronic anemia. Hemoglobin is lower at 8.9. This is secondary to chronic kidney disease secondary to infection with bone marrow suppression. The patient may receive Aranesp on an as-needed basis. 5. History of non-insulin dependent diabetes mellitus. Currently stable on sliding scale insulin. 6. History of arteriosclerotic heart disease status post Coronary artery bypass graft. 7. History of pulmonary hypertension with valvular heart disease. Ejection fraction of 62%. 8. History of recurrent hyperkalemia. As discussed in my last note, the patient may receive Kayexalate on a p.r.n. basis during hospitalization and perhaps she has a medication such as Veltassa in the outpatient setting to keep her potassium level in an acceptable range. PLAN: 1. Again waiting for agreement with family in terms of how to proceed. I think that the best option would be is placing a NG tube or Dobbhoff tube been giving the patient free water in lieu of giving her D5W which is making her glucose control more difficult. 2. Avoid any medication that would elevate her potassium or increase her BUN and creatinine. No DANIEL inhibitors, no angiotensin receptor blockers or should she received Aldactone. 3. No plans for dialysis right now, we will try and hydrate the patient. 4. Continue to monitor the patient on telemetry. Stalin Ibanez MD [facility]
--- NOTE | 2018-11-03 16:19 | PN ---
DATE: 11/03/2018 SUBJECTIVE: The patient was seen and examined. The patient has no complaints of any chest pain. No shortness of breath. No headaches. She is on a BiPAP. PHYSICAL EXAMINATION VITAL SIGNS: Temperature is 98.1, pulse rate of 85, blood pressure 186/73 and respirations 18. GENERAL: The patient is lying in bed, flat, comfortable. HEENT: No oral lesion. Anicteric sclerae. Moist mucosa. She has a BiPAP. NECK: No JVD, adenopathy, or thyromegaly. CARDIOVASCULAR: S1 and S2, regular. No murmurs, rubs, or gallops. LUNGS: Clear to auscultation bilaterally. No wheeze, rales, or rhonchi. ABDOMEN: Bowel sounds are positive, soft, nontender and nondistended. EXTREMITIES: No cyanosis, clubbing or edema. LABORATORY DATA: White count of 10.8 and hemoglobin is 8.9. Chemistry shows a sodium 158, potassium 5.1, the glucose is 285, and creatinine is 2.5. She has influenza A and B, which is positive. ANCA is negative. antibodies are negative. Hemoccult is positive. ASSESSMENT: 1. Acute kidney injury. 2. Hypokaliemia. 3. Hypernatremia. 4. Diabetes type 2. 5. Coronary disease. 6. Pacemaker. 7. Pulmonary hypertension. 8. Chronic obstructive pulmonary disease. PLAN: The patient is currently on hydralazine as needed. She is getting verapamil for hypertension. She is on amiodarone. She is receiving D5W for her hypernatremia. She is on Eliquis for her anticoagulation. She is on Lipitor for dyslipidemia. The patient is on MiraLax for constipation. She is on Protonix daily. She is on sildenafil for her pulmonary hypertension. She is going to continue with her steroid. The patient is on BiPAP. She is currently off antibiotics. She is being followed by Nephrology and Cardiology. She is going to get repeat blood work tomorrow. Her electrolytes are being managed by Nephrology. Bret Portillo MD [facility] # [id number]
[2018-11-04] MEDS: Levalbuterol 1.25 MG/3 ML Inhal Soln UD IH SCH ×4 (01:34→19:18)
[2018-11-04] MEDS: Pantoprazole 40 mg EC Tab PO SCH (05:13)
--- NOTE | 2018-11-04 07:09 | PN ---
DATE: 11/04/2018 PULMONARY PROGRESS NOTE SUBJECTIVE: The patient appears comfortable this morning. She is not short of breath at rest. PHYSICAL EXAMINATION GENERAL: She is awake and alert. VITAL SIGNS: Temperature is 98.0, pulse 71, respirations 18/20, blood pressure 175/56. Oxygen saturation on BiPAP is 96%--98%. HEENT: Normocephalic, atraumatic. No JVD. CARDIOVASCULAR: Systolic ejection murmur at the lower left sternal border. Positive S3 gallop. LUNGS: Minimal crackles at the bases. Minimal/less rhonchi. No wheezing. GI: Abdomen is soft, nontender, nondistended. Bowel sounds are positive. EXTREMITIES: Mild edema. No cyanosis, no clubbing. Calves are nontender to palpation. SKIN: No acute rash. NEUROLOGIC: Limited at the present time. IMPRESSION 1. Respiratory failure. 2. Acute congestive heart failure. 3. Advanced chronic obstructive pulmonary disease. 4. Right lower lobe pneumonia. 5. Rule out myocardial infarction. 6. Paroxysmal atrial fibrillation. 7. Renal insufficiency. PLAN: The patient appears quite comfortable this morning. She is not short of breath at rest. She is awake and alert. I did discuss the case with the night nurse at length. The night nurse stated that the patient is doing better overall. She was able to be out of bed yesterday. She also tolerated nasal cannula during the day. On physical exam, her bronchospasm continues to slowly resolve. In addition, the alveolar-arterial gradient also continues to resolve. I will continue the current nebulizer treatments and low-dose intravenous steroids for now. The patient also remains on Revatio -- for pulmonary hypertension. Inputs by Cardiology, Renal, and Infectious Disease are also noted. There are no temperatures noted. The leukocytosis has resolved. Clinical status of the patient is significantly improved overall. However, given the above, the future status/prognosis for this patient does remain guarded. I will discuss the above with the attending physician. Bhupinder Chiang MD [facility]
[2018-11-04] MEDS: Budesonide 0.5 mg/2 ml Inhal Susp UD IH SCH ×2 (07:22→19:18)
[2018-11-04 07:34] LABS: HEMOGLOBIN 9.1 g/dL (12.0-16.0); MEAN CELL VOLUME 90.9 fl (80.0-105.0); MEAN CORPUSCULAR HEMOGLOBIN 26.6 pg (25.0-35.0); MEAN CORPUSCULAR HGB CONC 29.3 g/dl (31.0-37.0); PLATELET COUNT 137 10^3/uL (120.0-450.0); RBC 3.42 10^6/uL (3.5-6.1); RED CELL DISTRIBUTION WIDTH 16.8 % (11.5-14.5); WHITE BLOOD COUNT 10.8 10^3/uL (4.5-11.0)
[2018-11-04] MEDS: Insulin Reg-HIGH-Coverage SC SCH ×4 (08:08→22:00)
[2018-11-04 08:12] LABS: ALBUMIN 3.1 g/dL (3.0-4.8); CALCIUM 9.9 mg/dL (8.4-10.5)
[2018-11-04] MEDS: MethylPREDNISolone 40 mg Vial IVP SCH ×2 (10:50→22:37)
[2018-11-04] MEDS: Sildenafil 20 MG TAB PO SCH ×3 (11:01→17:18)
[2018-11-04] MEDS: Verapamil 120 mg ER Tab PO SCH ×2 (11:01→12:06)
[2018-11-04] MEDS: POLYETHYLENE GLYCOL 3350 17 GM/Dose PACKET PO SCH ×3 (11:03→17:06)
[2018-11-04] MEDS: Vitamins A & D Oint UD Foilpak TOP SCH ×3 (11:03→17:06)
[2018-11-04] MEDS: Sucralfate 1 gm/10 ml Oral Susp UD PO ONE ×2 (11:56→12:02)
--- NOTE | 2018-11-04 13:42 | PN ---
DATE: 11/04/2018 SUBJECTIVE: The patient is seen lying in bed. She is awake. She seems somewhat confused. She is lethargic. As per the nursing staff, she would not eat any breakfast. She complains of some right upper quadrant pain. PHYSICAL EXAMINATION: GENERAL: Elderly lady lying in bed. VITAL SIGNS: Blood pressure 188/61, heart rate 63, respiratory rate 20, temperature 98. HEENT: Normocephalic, atraumatic, positive pallor. NECK: Supple, no JVD. LUNGS: Bilateral rhonchi, distant breath sounds, no rales appreciated. CARDIAC: S1 and S2, regular rate and rhythm, no murmur, no rub. ABDOMEN: Obese, distended, soft, tenderness in the right upper quadrant?. Bowel sounds present. EXTREMITIES: No lower extremity edema. Intake and output 960/1550. LABORATORY DATA: WBC 10, hemoglobin 9, hematocrit 31, platelets 137. Sodium 160, potassium 5, chloride 124, CO2 25, BUN 94, creatinine 2.3, glucose 329, calcium 9.9. CURRENT MEDICATIONS: Apresoline 50 b.i.d. Calan 240, amiodarone 200 daily, D5W at 60, DuoNeb, Eliquis 2.5 b.i.d., folic acid 1 mg, insulin, Lipitor, Lopressor 50 b.i.d., Lyrica 75 b.i.d., MiraLax 17 g b.i.d., Protonix 40, Pulmicort, Revatio, Singulair, Solu-Medrol, Tylenol, verapamil, Xopenex, Zofran. ASSESSMENT/PLAN: 1. Advanced chronic kidney disease stage IV/V, prerenal azotemia. 2. Severe hypernatremia worsening sodium levels. 3. Status post hyperkalemia. Potassium borderline today. 4. Severe chronic obstructive pulmonary disease, right heart failure, pulmonary hypertension. 5. Zlj-obpxpla-sutjyyjsu diabetes mellitus. 6. Hypertension. 7. Coronary artery disease/congestive heart failure, preserved left ventricular function. PLAN: 1. Place NG tube to allow for free water administration. 2. Continue D5W in the absence of an NG tube. 3. Follow a potassium restricted diet. 4. P.r.n. Kayexalate. 5. Continue current antihypertensive management. 6. Monitor fingersticks and continue insulin coverage. 7. Will discuss with Dr. . Doris Antunez MD
--- NOTE | 2018-11-04 13:43 | PN ---
DATE: 11/04/2018 SUBJECTIVE: The patient is a 73-year-old, seen and examined. According to daughter who is by the bedside, she complained of abdominal discomfort, complained of burning pain in the stomach, refusing to eat, refusing to take her medication. No nausea or vomiting. No diarrhea. She did have bowel movement this morning. According to nurse, she did not take her morning medications. Her blood pressure seems to be high. I am going to start her on Catapres patch. PHYSICAL EXAMINATION VITAL SIGNS: The patient is afebrile, pulse 63, respirations 18 and blood pressure 188/61. LUNGS: Bilateral diffusely decreased breath sounds. HEART: S1 and S2, audible. ABDOMEN: Soft. Slight epigastric discomfort. NEUROLOGICAL: She is awake, alert, oriented and communicative. LABORATORY DATA: WBC 10.8, hemoglobin 9.1, hematocrit 31, and platelets 137. Chemistry; sodium 160, potassium 5.0, chloride 124, CO2 of 35, BUN 94, creatinine 2.3 and blood sugar 329. ASSESSMENT: 1. Acute on chronic renal failure. 2. Status post chronic obstructive pulmonary disease exacerbation. 3. Hypertension. 4. Pulmonary hypertension. 5. History of congestive heart failure. 6. Hypernatremia, because of poor oral intake. 7. Peptic ulcer disease. 8. Non-insulin dependent diabetes. PLAN: We will continue the patient on hydralazine 50 mg twice a day, but she is not taking any oral medications. We will start her on Catapres patch, start her on Carafate, I will give her for next 24-hour and see her response. Nephrology has ordered for nasogastric tube for her to give free water, since she is becoming hypernatremic and her renal function is compromised already because of poor oral intake. We will followup her electrolyte and CBC. Laurel Schultz MD
--- NOTE | 2018-11-04 13:54 | CP.PCM.PN ---
<Mathew Vigil - Last Filed: 11/04/18 13:51> Subjective - Date & Time of Evaluation Date of Evaluation: 11/04/18 Time of Evaluation: 09:50 - Subjective Subjective: Mathew Vigil D.O. PGY-3, Internal Medicine Resident, Infectious Disease Progress Note 73 year old female admitted to ICU for hypertensive emergency complicated by ventilator dependent hypercapnic respiratory failure in the setting of cardior enal syndrome, hospital course complicated for pseudomonas UTI and pyelonephritis. Infectious disease consultation was requested for pneumonia. Patient was seen and examined at bedside. Resting comfortably off BIPAP. Had some stomach pain last night but better now. Objective - Vital Signs/Intake and Output Vital Signs (last 24 hours): Temp Pulse Resp BP Pulse Ox 98.3 F 63 20 212/61 H 96 11/04/18 12:00 11/04/18 12:00 11/04/18 12:00 11/04/18 12:00 11/04/18 06:00 Intake and Output: 11/04/18 11/04/18 06:59 18:59 Intake Total 840 Output Total 800 Balance 40 - Medications Medications: Current Medications Acetaminophen (Tylenol 325mg Tab) 650 mg PO Q6H PRN PRN Reason: Fever >100.4 F Last Admin: 10/21/18 16:47 Dose: 650 mg Albuterol/Ipratropium (Duoneb 3 Mg/0.5 Mg (3 Ml) Ud) 3 ml IH Q2H PRN PRN Reason: Shortness of Breath Last Admin: 10/19/18 10:38 Dose: 3 ml Alprazolam (Xanax) 0.25 mg PO BID PRN; Protocol PRN Reason: Anxiety Stop: 11/08/18 11:01 Last Admin: 11/03/18 18:28 Dose: 0.25 mg Amiodarone HCl (Cordarone) 200 mg PO DAILY [facility] Last Admin: 11/04/18 12:06 Dose: Not Given Apixaban (Eliquis) 2.5 mg PO BID [facility]; Protocol Last Admin: 11/04/18 12:06 Dose: Not Given Atorvastatin Calcium (Lipitor) 40 mg PO DAILY [facility] Last Admin: 11/04/18 12:07 Dose: Not Given Budesonide (Pulmicort Respules) 0.5 mg IH [id number] [facility] Last Admin: 11/04/18 07:22 Dose: 0.5 mg Clonidine HCl (Catapres-Tts2 0.2 Mg/24 Hr) 1 patch TD Q7D@1000 [facility] Last Admin: 11/04/18 12:11 Dose: 1 patch Dextrose (Dextrose 50% Inj) 0 ml IV STAT PRN; Protocol PRN Reason: Hypoglycemia Protocol Dicyclomine HCl (Bentyl) 10 mg PO TID [facility] Last Admin: 11/04/18 13:12 Dose: Not Given Folic Acid (Folic Acid) 1 mg PO DAILY [facility] Last Admin: 11/04/18 12:07 Dose: Not Given Hydralazine HCl (Apresoline) 50 mg PO BID [facility] Last Admin: 11/04/18 12:06 Dose: Not Given Hydralazine HCl (Apresoline) 10 mg IVP Q4 PRN PRN Reason: SBP > 180 Last Admin: 11/04/18 09:52 Dose: 10 mg Dextrose (Dextrose 5% In Water 1000 Ml) 1,000 mls @ 60 mls/hr IV .[id number] [facility] Last Admin: 11/04/18 02:54 Dose: 60 mls/hr Insulin Human Regular (Humulin R High) 0 units SC ACHS [facility]; Protocol Last Admin: 11/04/18 12:13 Dose: 7 units Levalbuterol HCl (Xopenex) 1.25 mg IH [id number] [facility] Last Admin: 11/04/18 13:12 Dose: 1.25 mg Methylprednisolone (Solu-Medrol) 20 mg IVP Q12 [facility] Last Admin: 11/04/18 10:50 Dose: 20 mg Metoprolol Tartrate (Lopressor) 50 mg PO BID [facility] Last Admin: 11/04/18 12:07 Dose: Not Given Montelukast Sodium (Singulair) 10 mg PO HS [facility] Last Admin: 11/03/18 21:26 Dose: Not Given Ondansetron HCl (Zofran Inj) 4 mg IVP Q6H PRN PRN Reason: Nausea/Vomiting Last Admin: 10/19/18 07:55 Dose: 4 mg Pantoprazole Sodium (Protonix Ec Tab) 40 mg PO 0600 [facility] Last Admin: 11/04/18 05:13 Dose: Not Given Polyethylene Glycol (Miralax) 17 gm PO BID [facility] Last Admin: 11/04/18 12:05 Dose: Not Given Pregabalin (Lyrica) 75 mg PO BID [facility] Last Admin: 10/24/18 09:45 Dose: 75 mg Sildenafil Citrate (Revatio) 20 mg PO BID [facility] Last Admin: 11/04/18 12:05 Dose: Not Given Sucralfate (Carafate Oral Susp) 1 gm PO 0630,1130,1630,2200 [facility] Verapamil HCl (Verapamil Inj) 2.5 mg IVP Q6H PRN PRN Reason: for Heart rate >120 Last Admin: 10/26/18 02:12 Dose: 2.5 mg Verapamil HCl (Calan Sr Tab) 240 mg PO DAILY [facility] Last Admin: 11/04/18 12:06 Dose: Not Given Vitamin A (Vitamin A & D Oint Ud Foilpak) 1 ea TOP BID [facility] Last Admin: 11/04/18 12:03 Dose: Not Given - Labs Labs: 11/04/18 07:00 11/04/18 07:00 PT 14.8 SECONDS (9.4-12.5) H 10/23/18 14:00 INR 1.33 10/23/18 14:00 APTT 26.6 Seconds (26.9-38.3) L 10/23/18 14:00 - Constitutional Appears: Non-toxic, Chronically Ill, pleasant elderly female - Head Exam Head Exam: ATRAUMATIC, NC - Eye Exam Eye Exam: EOMI - ENT Exam ENT Exam: Mucous Membranes Moist - Neck Exam Neck Exam: Normal Inspection - Cardiovascular Exam Cardiovascular Exam: S1, S2 - GI/Abdominal Exam GI & Abdominal Exam: Soft - Extremities Exam Extremities Exam: absent: Tenderness - Neurological Exam Neurological Exam: Alert, Awake - Skin Skin Exam: Dry, Warm Assessment and Plan - Assessment and Plan (Free Text) Assessment: 73 year old female admitted to ICU for hypertensive emergency complicated by ventilator dependent hypercapnic respiratory failure in the setting of cardiorenal syndrome, hospital course complicated for pseudomonas UTI and pyelonephritis. Infectious disease consultation was requested for pneumonia. Plan: Pseudomonas UTI and pyelonephritis - resolved HAP - resolved Finished 14 day course of meropenem Afebrile No leukocytosis Monitoring off abx at this time Is at increased risk for nosocomial infections Pulmonary consultation appreciated Nephro consultation appreciated Will continue to follow Patient was seen and examined and case to be discussed with attending physician Thank you for the pleasure of participating in the care of this interesting patient <FaisalJuan Miguel - Last Filed: 11/04/18 15:25> Objective - Vital Signs/Intake and Output Vital Signs (last 24 hours): Temp Pulse Resp BP Pulse Ox 98.3 F 69 20 212/61 H 96 11/04/18 12:00 11/04/18 14:00 11/04/18 12:00 11/04/18 12:00 11/04/18 06:00 Intake and Output: 11/04/18 11/04/18 06:59 18:59 Intake Total 840 Output Total 800 Balance 40 - Medications Medications: Current Medications Acetaminophen (Tylenol 325mg Tab) 650 mg PO Q6H PRN PRN Reason: Fever >100.4 F Last Admin: 10/21/18 16:47 Dose: 650 mg Albuterol/Ipratropium (Duoneb 3 Mg/0.5 Mg (3 Ml) Ud) 3 ml IH Q2H PRN PRN Reason: Shortness of Breath Last Admin: 10/19/18 10:38 Dose: 3 ml Alprazolam (Xanax) 0.25 mg PO BID PRN; Protocol PRN Reason: Anxiety Stop: 11/08/18 11:01 Last Admin: 11/03/18 18:28 Dose: 0.25 mg Amiodarone HCl (Cordarone) 200 mg PO DAILY [facility] Last Admin: 11/04/18 12:06 Dose: Not Given Apixaban (Eliquis) 2.5 mg PO BID [facility]; Protocol Last Admin: 11/04/18 12:06 Dose: Not Given Atorvastatin Calcium (Lipitor) 40 mg PO DAILY [facility] Last Admin: 11/04/18 12:07 Dose: Not Given Budesonide (Pulmicort Respules) 0.5 mg IH [id number] [facility] Last Admin: 11/04/18 07:22 Dose: 0.5 mg Clonidine HCl (Catapres-Tts3 0.3 Mg/24 Hr) 1 patch TD Q7D@1000 [facility] Dextrose (Dextrose 50% Inj) 0 ml IV STAT PRN; Protocol PRN Reason: Hypoglycemia Protocol Dicyclomine HCl (Bentyl) 10 mg PO TID [facility] Last Admin: 11/04/18 13:12 Dose: Not Given Folic Acid (Folic Acid) 1 mg PO DAILY [facility] Last Admin: 11/04/18 12:07 Dose: Not Given Hydralazine HCl (Apresoline) 50 mg PO BID [facility] Last Admin: 11/04/18 12:06 Dose: Not Given Hydralazine HCl (Apresoline) 10 mg IVP Q4 PRN PRN Reason: SBP > 180 Last Admin: 11/04/18 09:52 Dose: 10 mg Dextrose (Dextrose 5% In Water 1000 Ml) 1,000 mls @ 60 mls/hr IV .[id number] [facility] Last Admin: 11/04/18 02:54 Dose: 60 mls/hr diltiaZEM IVPB 100mg in NS (Cardizem 100mg In Ns) 100 mls @ 10 mls/hr IV .Q10H PRN; Protocol PRN Reason: TITRATE PER MD ORDER Insulin Human Regular (Humulin R High) 0 units SC ACHS [facility]; Protocol Last Admin: 11/04/18 12:13 Dose: 7 units Levalbuterol HCl (Xopenex) 1.25 mg IH [id number] [facility] Last Admin: 11/04/18 13:12 Dose: 1.25 mg Methylprednisolone (Solu-Medrol) 20 mg IVP Q12 [facility] Last Admin: 11/04/18 10:50 Dose: 20 mg Metoprolol Tartrate (Lopressor) 50 mg PO BID [facility] Last Admin: 11/04/18 12:07 Dose: Not Given Montelukast Sodium (Singulair) 10 mg PO HS [facility] Last Admin: 11/03/18 21:26 Dose: Not Given Ondansetron HCl (Zofran Inj) 4 mg IVP Q6H PRN PRN Reason: Nausea/Vomiting Last Admin: 10/19/18 07:55 Dose: 4 mg Pantoprazole Sodium (Protonix Ec Tab) 40 mg PO 0600 [facility] Last Admin: 11/04/18 05:13 Dose: Not Given Polyethylene Glycol (Miralax) 17 gm PO BID [facility] Last Admin: 11/04/18 12:05 Dose: Not Given Pregabalin (Lyrica) 75 mg PO BID [facility] Last Admin: 10/24/18 09:45 Dose: 75 mg Sildenafil Citrate (Revatio) 20 mg PO BID [facility] Last Admin: 11/04/18 12:05 Dose: Not Given Sucralfate (Carafate Oral Susp) 1 gm PO 0630,1130,1630,2200 [facility] Verapamil HCl (Verapamil Inj) 2.5 mg IVP Q6H PRN PRN Reason: for Heart rate >120 Last Admin: 10/26/18 02:12 Dose: 2.5 mg Verapamil HCl (Calan Sr Tab) 240 mg PO DAILY [facility] Last Admin: 11/04/18 12:06 Dose: Not Given Vitamin A (Vitamin A & D Oint Ud Foilpak) 1 ea TOP BID [facility] Last Admin: 11/04/18 12:03 Dose: Not Given - Labs Labs: 11/04/18 07:00 11/04/18 07:00 PT 14.8 SECONDS (9.4-12.5) H 10/23/18 14:00 INR 1.33 10/23/18 14:00 APTT 26.6 Seconds (26.9-38.3) L 10/23/18 14:00 Attending/Attestation - Attestation I have personally seen and examined this patient.: Yes I have fully participated in the care of the patient.: Yes I have reviewed all pertinent clinical information, including history, physical exam and plan: Yes
[2018-11-04] MEDS ORDERED: diltiaZEM IVPB 100mg in NS 100 ML IV PRN (14:45)
[2018-11-04] MEDS: diltiaZEM IVPB 100mg in NS 100 ML IV PRN (15:32)
[2018-11-04] MEDS: Sucralfate 1 gm/10 ml Oral Susp UD PO SCH ×2 (15:54→22:48)
--- NOTE | 2018-11-04 17:01 | PN ---
DATE: 11/04/2018 REASON FOR CONSULTATION: Coronary artery disease, COPD, history of PTCA, history of CABG, history of atrial fibrillation, pacemaker, admitted with worsening renal insufficiency, status post respiratory failure, pneumonia, intubated, now successfully extubated, and renal insufficiency. SUBJECTIVE: The patient denies any chest pain, shortness of breath, or any palpitation. OBJECTIVE: GENERAL: Not in apparent distress. VITAL SIGNS: Temperature afebrile, heart rate 66, blood pressure 188/61. HEENT: PERRLA. Extraocular muscles intact. NECK: Supple. No carotid bruits or thyromegaly. CHEST: Clear to auscultation. HEART: S1 and S2 regular. ABDOMEN: Soft. EXTREMITIES: Clubbing and cyanosis, negative. LABORATORY DATA: Blood workup as follows: WBC 10.8, hemoglobin , hematocrit 31.1, platelet count 137. Sodium 160, potassium 5.1, chloride 124, carbon dioxide 35, anion gap 6, BUN 94, creatinine 2.3. IMPRESSION: A 73-year-old female with a past medical history significant for morbid obesity, history of pulmonary hypertension, history of coronary artery disease, history of coronary artery bypass graft in 2013, history of percutaneous transluminal angioplasty of right coronary artery in 2014, has a [place] artery occluded, history of permanent pacemaker, history of paroxysmal atrial fibrillation, history of chronic kidney disease, admitted with pneumonia, acute kidney disease, worsening renal insufficiency, borderline troponin positive, history of acute kidney injury, probably not significant. The patient was initially reluctant for dialysis, discussion done, hypernatremia, discussed with the daughter if they would be agreeable for dialysis if needed. Now, the patient had hypernatremia, fluid management as per library clerk talking books. CVS status is stable. No plan for cardiac catheterization, not indicated at this time. Though borderline troponin positive, indeterminate in nature, doubted as myocardial infarction, most likely secondary to acute kidney injury. Recent echo repeated on 10/19/2018 that showed preserved left ventricular ejection fraction of 55-60%, trace aortic regurgitation, mild aortic stenosis, trace mitral regurgitation, mild mitral stenosis, mild tricuspid regurgitation with right ventricular systolic pressure of 55. RECOMMENDATIONS: Fluid management as per ID. Continue verapamil 250 mg daily, continue hydralazine, avoid nephrotoxic medications, continue clonidine patch, continue amiodarone, keep in normal sinus. Continue Eliquis 2.5 p.o. b.i.d., continue atorvastatin, continue metoprolol and sildenafil. Continue IV fluids for hypernatremia. Medical treatment from the cardiology point of view, no plan for cardiac catheterization as mentioned above. We will follow with you. Thank you Dr. Schultz for providing us the opportunity in taking care of the patient Sobeida Emerson. Sapna Latif MD
[2018-11-05] MEDS: diltiaZEM IVPB 100mg in NS 100 ML IV PRN ×3 (00:55→23:27)
[2018-11-05] MEDS: Levalbuterol 1.25 MG/3 ML Inhal Soln UD IH SCH ×4 (02:30→19:23)
[2018-11-05] MEDS: Pantoprazole 40 mg EC Tab PO SCH (06:09)
[2018-11-05] MEDS: Sucralfate 1 gm/10 ml Oral Susp UD PO SCH ×4 (06:09→21:56)
[2018-11-05 07:40] LABS: HEMOGLOBIN 9.4 g/dL (12.0-16.0); MEAN CELL VOLUME 92.5 fl (80.0-105.0); MEAN CORPUSCULAR HGB CONC 29.2 g/dl (31.0-37.0); RBC 3.48 10^6/uL (3.5-6.1); RED CELL DISTRIBUTION WIDTH 16.9 % (11.5-14.5); WHITE BLOOD COUNT 13.2 10^3/uL (4.5-11.0)
[2018-11-05] MEDS: Budesonide 0.5 mg/2 ml Inhal Susp UD IH SCH ×2 (07:53→19:23)
[2018-11-05] MEDS: Insulin Reg-HIGH-Coverage SC SCH ×4 (08:14→21:56)
[2018-11-05 08:18] LABS: ALB/GLOB RATIO 1.1 (1.1-1.8); ALBUMIN 3.4 g/dL (3.0-4.8); CALCIUM 9.6 mg/dL (8.4-10.5)
[2018-11-05] MEDS: MethylPREDNISolone 40 mg Vial IVP SCH ×2 (09:25→21:55)
[2018-11-05] MEDS: Verapamil 120 mg ER Tab PO SCH ×2 (09:26→10:20)
[2018-11-05] MEDS: Vitamins A & D Oint UD Foilpak TOP SCH ×2 (09:26→17:47)
[2018-11-05] MEDS: POLYETHYLENE GLYCOL 3350 17 GM/Dose PACKET PO SCH ×3 (09:26→17:15)
[2018-11-05] MEDS: Sildenafil 20 MG TAB PO SCH ×3 (09:26→17:15)
--- NOTE | 2018-11-05 09:48 | PN ---
DATE: 11/05/2018 PULMONARY NOTE SUBJECTIVE: The patient appears comfortable this morning. She is not short of breath at rest. PHYSICAL EXAMINATION VITAL SIGNS: Temperature is 98.2, pulse 62, respirations 19, blood pressure 180/62 and oxygen saturation on BiPAP is 97%. HEENT: Normocephalic and atraumatic. No JVD. CARDIOVASCULAR: Systolic ejection murmur at the lower left sternal border. Positive S3 gallop. LUNGS: Minimal crackles at the bases. Minimal/less rhonchi. No wheezing. EXTREMITIES: Mild edema. No cyanosis. No clubbing. Calves are nontender to palpation. GI: Abdomen is soft, nontender and nondistended. Bowel sounds are positive. SKIN: No acute rash. NEUROLOGIC: Exam limited at the present time. IMPRESSION: 1. Respiratory failure. 2. Acute congestive heart failure. 3. Advanced chronic obstructive pulmonary disease. 4. Right lower lobe pneumonia. 5. Rule out myocardial infarction. 6. Paroxysmal atrial fibrillation. 7. Renal insufficiency. PLAN: The patient appears comfortable this morning. She is not short of breath at rest. She is awake and alert. I did discuss the case with the night nurses at length. The patient was able to get out of bed yesterday, and did tolerate nasal cannula during the day. This is certainly an improvement. On physical exam, there is certainly less bronchospasm noted. In addition, the alveolar-arterial gradient is also much less. I will continue the current nebulizer treatments and low-dose intravenous steroids for now. The patient does have trouble taking some of her oral medications, so I will continue with the low-dose intravenous therapy for now. Inputs by Infectious Disease, Cardiology, and Renal are also noted. Clinical status of the patient is significantly improved overall. However, given the above, the future status/prognosis for this patient does remain guarded. I will discuss the above with the attending physician. Bhupinder Chiang MD [facility]
[2018-11-05 12:11] LABS: PLATELET COUNT 120 10^3/uL (120.0-450.0)
--- NOTE | 2018-11-05 16:18 | CP.PCM.PN ---
<Mathew Vigil - Last Filed: 11/05/18 16:17> Subjective - Date & Time of Evaluation Date of Evaluation: 11/05/18 Time of Evaluation: 09:25 - Subjective Subjective: Mathew Vigil D.O. PGY-3, Internal Medicine Resident, Infectious Disease Progress Note 73 year old female admitted to ICU for hypertensive emergency complicated by ventilator dependent hypercapnic respiratory failure in the setting of cardior enal syndrome, hospital course complicated for pseudomonas UTI and pyelonephritis. Infectious disease consultation was requested for pneumonia. Patient was seen and examined at chairside. Resting comfortably. No active complaints. Objective - Vital Signs/Intake and Output Vital Signs (last 24 hours): Temp Pulse Resp BP Pulse Ox 98.6 F 60 20 160/57 H 97 11/05/18 12:00 11/05/18 14:00 11/05/18 12:00 11/05/18 12:00 11/05/18 06:00 Intake and Output: 11/05/18 11/05/18 06:59 18:59 Intake Total 820 100 Output Total 350 Balance 470 100 - Medications Medications: Current Medications Acetaminophen (Tylenol 325mg Tab) 650 mg PO Q6H PRN PRN Reason: Fever >100.4 F Last Admin: 10/21/18 16:47 Dose: 650 mg Albuterol/Ipratropium (Duoneb 3 Mg/0.5 Mg (3 Ml) Ud) 3 ml IH Q2H PRN PRN Reason: Shortness of Breath Last Admin: 10/19/18 10:38 Dose: 3 ml Alprazolam (Xanax) 0.25 mg PO BID PRN; Protocol PRN Reason: Anxiety Stop: 11/08/18 11:01 Last Admin: 11/03/18 18:28 Dose: 0.25 mg Amiodarone HCl (Cordarone) 200 mg PO DAILY PENDING SALE TO [facility] Last Admin: 11/05/18 10:50 Dose: Not Given Apixaban (Eliquis) 2.5 mg PO BID PENDING SALE TO [facility]; Protocol Last Admin: 11/05/18 10:50 Dose: Not Given Atorvastatin Calcium (Lipitor) 40 mg PO DAILY PEND[facility] S[facility] Last Admin: 11/05/18 10:06 Dose: Not Given Budesonide (Pulmicort Respules) 0.5 mg IH [id number] PENDING SALE TO [facility] Last Admin: 11/05/18 07:53 Dose: 0.5 mg Clonidine HCl (Catapres-Tts3 0.3 Mg/24 Hr) 1 patch TD Q7D@1000 PENDING SALE TO [facility] Last Admin: 11/04/18 15:50 Dose: 1 patch Clotrimazole (Mycelex Nelia) 10 mg MT 5XD PENDING SALE TO [facility] Last Admin: 11/05/18 14:34 Dose: 10 mg Dextrose (Dextrose 50% Inj) 0 ml IV STAT PRN; Protocol PRN Reason: Hypoglycemia Protocol Dicyclomine HCl (Bentyl) 10 mg PO TID PEND[facility] S[facility] Last Admin: 11/05/18 13:03 Dose: Not Given Folic Acid (Folic Acid) 1 mg PO DAILY PENDING SALE [facility] Last Admin: 11/05/18 10:50 Dose: Not Given Hydralazine HCl (Apresoline) 50 mg PO BID PEND[facility] SALE [facility] Last Admin: 11/05/18 10:20 Dose: Not Given Hydralazine HCl (Apresoline) 10 mg IVP Q4 PRN PRN Reason: SBP > 180 Last Admin: 11/05/18 05:59 Dose: 10 mg Dextrose (Dextrose 5% In Water 1000 Ml) 1,000 mls @ 60 mls/hr IV .[id number] PENDING SALE TO [facility] Last Admin: 11/05/18 12:32 Dose: Not Given diltiaZEM IVPB 100mg in NS (Cardizem 100mg In Ns) 100 mls @ 10 mls/hr IV .Q10H PRN; Protocol PRN Reason: TITRATE PER MD ORDER Last Admin: 11/05/18 12:29 Dose: 10 mls/hr Insulin Human Regular (Humulin R High) 0 units SC ACHS PENDING SALE TO [facility]; Protocol Last Admin: 11/05/18 12:28 Dose: 12 units Levalbuterol HCl (Xopenex) 1.25 mg IH [id number] PENDING SALE [facility] Last Admin: 11/05/18 13:50 Dose: 1.25 mg Methylprednisolone (Solu-Medrol) 20 mg IVP Q12 PENDING SALE TO [facility] Last Admin: 11/05/18 09:25 Dose: 20 mg Metoprolol Tartrate (Lopressor) 50 mg PO BID PENDING S[facility] Last Admin: 11/05/18 10:50 Dose: Not Given Montelukast Sodium (Singulair) 10 mg PO HS PENDING SALE [facility] Last Admin: 11/03/18 21:26 Dose: Not Given Ondansetron HCl (Zofran Inj) 4 mg IVP Q6H PRN PRN Reason: Nausea/Vomiting Last Admin: 10/19/18 07:55 Dose: 4 mg Pantoprazole Sodium (Protonix Inj) 40 mg IVP DAILY PENDING SALE [facility] Polyethylene Glycol (Miralax) 17 gm PO BID PENDING SALE TO [facility] Last Admin: 11/05/18 10:51 Dose: Not Given Pregabalin (Lyrica) 75 mg PO BID PEND[facility] SALE [facility] Last Admin: 10/24/18 09:45 Dose: 75 mg Sildenafil Citrate (Revatio) 20 mg PO BID PENDING SALE TO [facility] Last Admin: 11/05/18 10:51 Dose: Not Given Sucralfate (Carafate Oral Susp) 1 gm PO 0630,1130,1630,2200 PENDING SALE TO [facility] Last Admin: 11/05/18 15:51 Dose: Not Given Verapamil HCl (Verapamil Inj) 2.5 mg IVP Q6H PRN PRN Reason: for Heart rate >120 Last Admin: 10/26/18 02:12 Dose: 2.5 mg Verapamil HCl (Calan Sr Tab) 240 mg PO DAILY PEND[facility] Last Admin: 11/05/18 10:20 Dose: Not Given Vitamin A (Vitamin A & D Oint Ud Foilpak) 1 ea TOP BID PENDING SALE TO [facility] Last Admin: 11/05/18 09:26 Dose: 1 ea - Labs Labs: 11/05/18 07:00 11/05/18 07:00 PT 14.8 SECONDS (9.4-12.5) H 10/23/18 14:00 INR 1.33 10/23/18 14:00 APTT 26.6 Seconds (26.9-38.3) L 10/23/18 14:00 - Constitutional Appears: Non-toxic, Chronically Ill, pleasant elderly female - Head Exam Head Exam: ATRAUMATIC, NC - Eye Exam Eye Exam: EOMI - ENT Exam ENT Exam: Mucous Membranes Moist - Neck Exam Neck Exam: Normal Inspection - Cardiovascular Exam Cardiovascular Exam: S1, S2 - GI/Abdominal Exam GI & Abdominal Exam: Soft - Extremities Exam Extremities Exam: absent: Tenderness - Neurological Exam Neurological Exam: Alert, Awake - Skin Skin Exam: Dry, Warm Assessment and Plan - Assessment and Plan (Free Text) Assessment: 73 year old female admitted to ICU for hypertensive emergency complicated by ventilator dependent hypercapnic respiratory failure in the setting of cardio renal syndrome, hospital course complicated for pseudomonas UTI and pyelonephritis. Infectious disease consultation was requested for pneumonia. Plan: Pseudomonas UTI and pyelonephritis - resolved HAP - resolved Afebrile No leukocytosis Monitoring off abx at this time At increased risk for nosocomial infections Will continue to follow Patient was seen and examined and case to be discussed with attending physician Thank you for the pleasure of participating in the care of this interesting patient <Juan Miguel Malone - Last Filed: 11/05/18 17:11> Objective - Vital Signs/Intake and Output Vital Signs (last 24 hours): Temp Pulse Resp BP Pulse Ox 98.6 F 60 20 160/57 H 97 11/05/18 12:00 11/05/18 14:00 11/05/18 12:00 11/05/18 12:00 11/05/18 06:00 Intake and Output: 11/05/18 11/05/18 06:59 18:59 Intake Total 820 100 Output Total 350 Balance 470 100 - Medications Medications: Current Medications Acetaminophen (Tylenol 325mg Tab) 650 mg PO Q6H PRN PRN Reason: Fever >100.4 F Last Admin: 10/21/18 16:47 Dose: 650 mg Albuterol/Ipratropium (Duoneb 3 Mg/0.5 Mg (3 Ml) Ud) 3 ml IH Q2H PRN PRN Reason: Shortness of Breath Last Admin: 10/19/18 10:38 Dose: 3 ml Alprazolam (Xanax) 0.25 mg PO BID PRN; Protocol PRN Reason: Anxiety Stop: 11/08/18 11:01 Last Admin: 11/03/18 18:28 Dose: 0.25 mg Amiodarone HCl (Cordarone) 200 mg PO DAILY PENDING SALE TO [facility] Last Admin: 11/05/18 10:50 Dose: Not Given Apixaban (Eliquis) 2.5 mg PO BID PENDING SALE TO [facility]; Protocol Last Admin: 11/05/18 10:50 Dose: Not Given Atorvastatin Calcium (Lipitor) 40 mg PO DAILY PENDING S[facility] Last Admin: 11/05/18 10:06 Dose: Not Given Budesonide (Pulmicort Respules) 0.5 mg IH [id number] PENDING SALE [facility] Last Admin: 11/05/18 07:53 Dose: 0.5 mg Clonidine HCl (Catapres-Tts3 0.3 Mg/24 Hr) 1 patch TD Q7D@1000 PENDING SALE [facility] Last Admin: 11/04/18 15:50 Dose: 1 patch Clotrimazole (Mycelex Nelia) 10 mg MT 5XD PENDING SALE [facility] Last Admin: 11/05/18 14:34 Dose: 10 mg Dextrose (Dextrose 50% Inj) 0 ml IV STAT PRN; Protocol PRN Reason: Hypoglycemia Protocol Dicyclomine HCl (Bentyl) 10 mg PO TID PEND[facility] Last Admin: 11/05/18 13:03 Dose: Not Given Folic Acid (Folic Acid) 1 mg PO DAILY PENDING [facility] Last Admin: 11/05/18 10:50 Dose: Not Given Hydralazine HCl (Apresoline) 50 mg PO BID PEND[facility] Last Admin: 11/05/18 10:20 Dose: Not Given Hydralazine HCl (Apresoline) 10 mg IVP Q4 PRN PRN Reason: SBP > 180 Last Admin: 11/05/18 05:59 Dose: 10 mg Dextrose (Dextrose 5% In Water 1000 Ml) 1,000 mls @ 60 mls/hr IV .[id number] PENDING SALE [facility] Last Admin: 11/05/18 12:32 Dose: Not Given diltiaZEM IVPB 100mg in NS (Cardizem 100mg In Ns) 100 mls @ 10 mls/hr IV .Q10H PRN; Protocol PRN Reason: TITRATE PER MD ORDER Last Admin: 11/05/18 12:29 Dose: 10 mls/hr Insulin Human Regular (Humulin R High) 0 units SC ACHS PENDING SALE [facility]; Protocol Last Admin: 11/05/18 12:28 Dose: 12 units Levalbuterol HCl (Xopenex) 1.25 mg IH [id number] PENDING SALE [facility] Last Admin: 11/05/18 13:50 Dose: 1.25 mg Methylprednisolone (Solu-Medrol) 20 mg IVP Q12 PENDING SALE [facility] Last Admin: 11/05/18 09:25 Dose: 20 mg Metoprolol Tartrate (Lopressor) 50 mg PO BID PENDING [facility] Last Admin: 11/05/18 10:50 Dose: Not Given Montelukast Sodium (Singulair) 10 mg PO HS PENDING SALE [facility] Last Admin: 11/03/18 21:26 Dose: Not Given Ondansetron HCl (Zofran Inj) 4 mg IVP Q6H PRN PRN Reason: Nausea/Vomiting Last Admin: 10/19/18 07:55 Dose: 4 mg Pantoprazole Sodium (Protonix Inj) 40 mg IVP DAILY PENDING [facility]ALE [facility] Polyethylene Glycol (Miralax) 17 gm PO BID PENDING [facility] Last Admin: 11/05/18 10:51 Dose: Not Given Pregabalin (Lyrica) 75 mg PO BID PEND[facility] Last Admin: 10/24/18 09:45 Dose: 75 mg Sildenafil Citrate (Revatio) 20 mg PO BID PEND[facility] Last Admin: 11/05/18 10:51 Dose: Not Given Sucralfate (Carafate Oral Susp) 1 gm PO 0630,1130,1630,2200 PENDING SALE TO [facility] Last Admin: 11/05/18 15:51 Dose: Not Given Verapamil HCl (Verapamil Inj) 2.5 mg IVP Q6H PRN PRN Reason: for Heart rate >120 Last Admin: 10/26/18 02:12 Dose: 2.5 mg Verapamil HCl (Calan Sr Tab) 240 mg PO DAILY PENDING SALE [facility] Last Admin: 11/05/18 10:20 Dose: Not Given Vitamin A (Vitamin A & D Oint Ud Foilpak) 1 ea TOP BID PENDING SALE TO [facility] Last Admin: 11/05/18 09:26 Dose: 1 ea - Labs Labs: 11/05/18 07:00 11/05/18 07:00 PT 14.8 SECONDS (9.4-12.5) H 10/23/18 14:00 INR 1.33 10/23/18 14:00 APTT 26.6 Seconds (26.9-38.3) L 10/23/18 14:00 Attending/Attestation - Attestation I have personally seen and examined this patient.: Yes I have fully participated in the care of the patient.: Yes I have reviewed all pertinent clinical information, including history, physical exam and plan: Yes
--- NOTE | 2018-11-05 16:52 | PN ---
DATE: 11/05/2018 REASON FOR CONSULTATION AND FOLLOWUP: Coronary artery disease, COPD, history of PTCA, history of CABG, history of atrial fibrillation, pacemaker admitted with worsening of renal insufficiency, is status post respiratory failure, pneumonia intubated, now successfully extubated, inability to take p.o. medications. SUBJECTIVE: The patient denies any chest pain, shortness of breath, or any palpitation. OBJECTIVE: As follows: GENERAL: Appears confused, on CPAP, and on non invasive ventilator. VITAL SIGNS: Temperature afebrile, heart rate 79, and blood pressure 138/48. HEENT: PERRLA. Extraocular muscles intact. NECK: Supple. No carotid bruits or thyromegaly. CHEST: Clear to auscultation. HEART: S1 and S2 regular. ABDOMEN: Soft. EXTREMITIES: Clubbing and cyanosis negative. LABORATORY DATA: Blood workup as follows; WBC 13.2, hemoglobin 9.2, hematocrit 32.2, and platelet count 120. Chemistry shows sodium 155, potassium 5.8, chloride 122, carbon dioxide 27, anion gap of 12, BUN 92, and creatinine 2.4, GFR estimated 24 mL an hour. IMPRESSION: A 73-year-old female with past medical history significant for obesity, coronary artery disease status post coronary artery bypass grafting in 2013, status post percutaneous transluminal coronary angioplasty of [place] right coronary artery in 2014, status post permanent pacemaker, pulmonary hypertension, history of paroxysmal atrial fibrillation admitted with respiratory distress, pneumonia bilaterally intubated, acute kidney injury, now the patient is inability to take p.o. medications. I started her on Cardizem intravenous on clonidine patch and intravenous hydralazine. The patient has hypernatremia, history of end-stage renal disease, stage IV/V kidney disease. As per sewer, she does not needs to dialysis right away, but eventually the patient dialysis. RECOMMENDATIONS: As mentioned, continue clonidine, continue Cardizem, and continue IV hydralazine and continue IV fluid for hypernatremia. Overall the patient's clinical and long-term prognosis is guarded. The patient needs definite treatment. She needs either NG tube or a PEG placement for medication. We will discuss with the family. We will follow with you. It seems the patient has elevated K, we will give some Kayexalate [place]. Thank you Dr. Schultz for providing us the opportunity in taking care of the patient, Ki Vidales. Sapna Latif MD
--- NOTE | 2018-11-05 20:13 | PN ---
DATE: 11/05/2018 SUBJECTIVE: The patient is currently seen on 2R. Discussion with her daughter who lives with her. The patient is currently receiving an enema because of constipation. Daughter states that there was an attempt to place a nasogastric tube at the bedside yesterday, but the patient fought it off. She is asking if her mother can be sedated prior to placing the Dobbhoff or nasogastric tube. The patient certainly needs hydration. So whatever it takes for the tube to be placed, I explained to her that we would try and do this. MEDICATIONS: Medication list reviewed. The patient is currently on Apresoline, Bentyl, Calan, Carafate, Catapres patch, amiodarone, D5W 60 an hour, DuoNeb is on hold, Eliquis, folic acid, insulin, Lipitor, Lopressor, Lyrica is on hold, MiraLax, Mycelex kathrin, Protonix, Pulmicort, Revatio, Singulair, Solu-Medrol, Tylenol, verapamil, vitamin A and D, Xanax, Xopenex, and Zofran p.r.n. PHYSICAL EXAMINATION: INTAKE/OUTPUT: Intake is 1640, output is 350. VITAL SIGNS: Blood pressure 160/57, temperature 98.6, respiratory rate 20 with a pulse of 60. HEENT: Shows her to be normocephalic, atraumatic. Conjunctivae are pale. Sclerae nonicteric. NECK: Supple. No neck vein distention. CHEST: No rales, rhonchi or wheezing with slight decreased breath sounds at the bases. CARDIOVASCULAR: Shows an irregular S1, S2. Positive MR/TR/AI/. No S3, no S4, no rub. ABDOMEN: Mildly obese. Nondistended. Bowel sounds normal. No rebound, guarding or masses. EXTREMITIES: Show no lower extremity cyanosis, clubbing or edema. LABORATORY DATA AND IMAGING: CBC, white blood cell count today up to 13.2 perhaps from steroids. Hemoglobin 9.4, platelet count is 120,000. Chemistries show potassium once again elevated at 5.8. Sodium was 155, chloride 122. BUN remains in the 90s at 92, creatinine 2.4. Glucose is 437. Calcium was 9.6. Her phosphorus of 3.9. Magnesium level of 2.9. Albumin level was 3.4. 24-hour urines were done that show a creatinine clearance of 24 mL per minute with 2247 mg of protein on a random total urine protein. Urine microalbumin to creatinine ratio was 493. Microbiology, all recent cultures are negative. ASSESSMENT: 1. Acute renal failure superimposed on chronic kidney disease stage III/IV. Unfortunately, the patient remains very dehydrated with renal hypoperfusion and resulting hypernatremia and hyperkalemia. Discussed with the patient's daughter who needs to get the rest of the family on board, she should have a Dobbhoff tube placed and should be receiving large amounts of hydration in order to better profuse her kidneys by increasing her blood volume. Unfortunately using D5W, it is causing difficulty with her glucose control as evidenced by her high sugars. Perhaps a second try of placing the Dobbhoff tube can be done. 2. History of chronic obstructive pulmonary disease with bilateral pneumonia. The patient has pulmonary nodules and has completed a course of antibiotic therapy. 3. Status post respiratory failure with intubation. 4. History of chronic anemia. Hemoglobin is 9.4, this is stable. The patient receives Aranesp on an as-needed basis. This is secondary to chronic kidney disease and secondary to infection with bone marrow suppression. 5. History of egn-ubraluw-eqnehzxak diabetes mellitus. Difficult to control her sugars as she remains on D5W. The patient remains on sliding scale insulin. 6. 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 7. History of pulmonary hypertension with valvular heart disease, ejection fraction of 62%. 8. History of difficult to treat refractory hyperkalemia. The patient once again received Kayexalate today. As discussed in my previous notes in the outpatient setting if necessary, she could receive a medicine such as Veltassa which taken on a regular basis will keep her potassium level in the normal range. PLAN: 1. Explained to the patient's daughter that it is important that the family all agree on a plan. 2. I would like to see a second attempt at placement of a NG/and Dobbhoff tube so the patient may receive nutrition and she also may receive large amounts of p.o. free water. 3. Avoid any medications that would increase her potassium level. No DANIEL inhibitors, no angiotensin receptor blockers and avoid potassium-sparing diuretics. 4. No plans for dialysis as I believe that we could stabilize the patient nicely with adequate oral fluid hydration. 5. Continue to monitor the patient on telemetry. Stalin Ibanez MD [facility]
--- NOTE | 2018-11-06 01:04 | PN ---
DATE: 11/05/2018 SUBJECTIVE: The patient is a 73-year-old, seen and examined, currently sitting in a recliner, refusing to eat, refusing to take medication. She seemed to be lethargic, however, open eyes on verbal command. PHYSICAL EXAMINATION: VITAL SIGNS: She is afebrile. Pulse 55, respirations 18, blood pressure 189/62. LUNGS: Bilateral fair airflow. Decreased at bases. HEART: S1 and S2 audible. Rate controlled. ABDOMEN: Soft, obese, and nontender. No rebound. No guarding. NEUROLOGIC: The patient is lethargic. EXTREMITIES: Bilateral leg; no edema. LABORATORY DATA: WBC 13.2, hemoglobin 9.4, hematocrit 32, and platelets 120. Chemistries: Sodium 155, potassium 5.8, chloride 122, CO2 of 27, BUN 92, creatinine 2.4, and blood sugar 437. ASSESSMENT: 1. Acute on chronic renal failure. 2. Poor oral intake and dehydration. 3. History of congestive heart failure. 4. Coronary artery disease, status post open heart surgery in 2013. 5. Status post pacemaker placement. 6. Chronic obstructive pulmonary disease. 7. Pulmonary hypertension. 8. Paroxysmal atrial fibrillation. 9. Bilateral pneumonia, status post intubation but currently she is extubated but has very poor oral intake. 10. Hypernatremia. 11. Oral thrush. PLAN: I spoke to the patient's daughter, Rk, for possibility of dropping Dobhoff, but she states, give her some time. She was relatively busy taking care of her handicapped grandson. She more because mom is relatively more receptive with her, and I spoke to her. Later on, she states she was able to get some yogurt and some fruit in, and she will spend more time tomorrow, and if her oral intake not improve, I will discuss other options. We will try to control her blood pressure by Catapres patch. Currently, she is on IV Cardizem. I will start her on IV Protonix. She is on IV steroid. Continue nebulizer treatment. I will start her on IV Diflucan. We will follow up her electrolyte, CBC, and CMP in a.m. Laurel Schultz MD [facility] # [id number]
[2018-11-06] MEDS: Levalbuterol 1.25 MG/3 ML Inhal Soln UD IH SCH ×4 (01:05→19:20)
[2018-11-06] MEDS: Sucralfate 1 gm/10 ml Oral Susp UD PO SCH ×2 (06:56→10:37)
[2018-11-06 07:19] LABS: HEMOGLOBIN 9.1 g/dL (12.0-16.0); MEAN CELL VOLUME 91.7 fl (80.0-105.0); MEAN CORPUSCULAR HGB CONC 29.4 g/dl (31.0-37.0); PLATELET COUNT 150 10^3/uL (120.0-450.0); RBC 3.37 10^6/uL (3.5-6.1); RED CELL DISTRIBUTION WIDTH 16.8 % (11.5-14.5)
[2018-11-06 07:59] LABS: ALB/GLOB RATIO 1.1 (1.1-1.8); ALBUMIN 3.2 g/dL (3.0-4.8); CALCIUM 9.5 mg/dL (8.4-10.5)
[2018-11-06] MEDS: Budesonide 0.5 mg/2 ml Inhal Susp UD IH SCH ×2 (08:06→19:20)
[2018-11-06] MEDS: Insulin Reg-HIGH-Coverage SC SCH ×4 (08:14→22:17)
--- NOTE | 2018-11-06 09:43 | PN ---
DATE: 11/06/2018 PULMONARY NOTE SUBJECTIVE: The patient appears quite comfortable this morning. She is awake and alert. She is not short of breath at rest. PHYSICAL EXAMINATION: VITALS: Temperature is 97.8, pulse 60, respirations 18/20, blood pressure 152/54. Oxygen saturation on BiPAP 96-97%. HEENT: Normocephalic, atraumatic. No JVD. CARDIOVASCULAR: Systolic ejection murmur at the lower left sternal border. Positive S3 gallop. LUNGS: Minimal crackles at the bases. Very minimal/less rhonchi. No wheezing. EXTREMITIES: Mild edema. No cyanosis, no clubbing. Calves are nontender to palpation. GASTROINTESTINAL: Abdomen is soft, nontender, and nondistended. Bowel sounds are positive. SKIN: No acute rash. NEUROLOGIC: Exam limited at the present time. IMPRESSION: 1. Respiratory failure. 2. Acute congestive heart failure. 3. Advanced chronic obstructive pulmonary disease. 4. Right lower lobe pneumonia. 5. Rule out myocardial infarction. 6. Paroxysmal atrial fibrillation. 7. Renal insufficiency. PLAN: The patient appears very comfortable this morning. She is not short of breath at rest. She is awake and alert. I did discuss the case with the night nurses at length. The night nurses stated that the patient is slowly improving. On physical exam, there is only minimal bronchospasm noted. In addition, the alveolar-arterial gradient is much less. The patient is not taking oral medications that well at this point in time. Thus, I will continue the current nebulizer treatments and low-dose intravenous steroids for now. Inputs by Renal, Cardiology, and Infectious Disease are also noted. Clinical status of the patient is significantly improved - compared to last week. However, given the above, the future status/prognosis for this elderly patient does remain guarded. I will discuss the above with the attending physician. Bhupinder Chiang MD [facility]
[2018-11-06] MEDS ORDERED: Fluconazole IV 200mg/100 ml NS 100 MG in Premixed IV 1 EA IVPB SCH (10:00)
[2018-11-06] MEDS ORDERED: Fluconazole IV 200mg/100 ml NS 100 ML IVPB ONE (10:35)
[2018-11-06] MEDS: MethylPREDNISolone 40 mg Vial IVP SCH ×2 (10:37→22:17)
[2018-11-06] MEDS: POLYETHYLENE GLYCOL 3350 17 GM/Dose PACKET PO SCH ×2 (10:37→17:48)
[2018-11-06] MEDS: Verapamil 120 mg ER Tab PO SCH (10:38)
[2018-11-06] MEDS: Sildenafil 20 MG TAB PO SCH ×2 (10:39→17:48)
[2018-11-06] MEDS ORDERED: Fluconazole IV 100mg/50 ml NS 50 ML IVPB SCH (10:53)
[2018-11-06] MEDS: diltiaZEM IVPB 100mg in NS 100 ML IV PRN ×2 (11:01→22:55)
[2018-11-06] MEDS: Fluconazole IV 100mg/50 ml NS 50 ML IVPB SCH (11:18)
[2018-11-06] MEDS: Vitamins A & D Oint UD Foilpak TOP SCH ×2 (11:32→18:02)
--- NOTE | 2018-11-06 12:00 | PN ---
DATE: 11/06/2018 REASON FOR CONSULTATION AND FOLLOWUP: Coronary artery disease, COPD, history of PTCA, history of CABG, history of atrial fibrillation, pacemaker, admitted with worsening renal insufficiency, respiratory failure, pneumonia, intubated, now the patient is successfully extubated, refused p.o. meds. SUBJECTIVE: Denies any chest pain, shortness of breath or any palpitations. Awake and alert. PHYSICAL EXAMINATION: VITAL SIGNS: Temperature afebrile, heart rate 60, blood pressure 152/54. HEENT: PERRLA. Extraocular muscles intact. NECK: Supple. No carotid bruits or thyromegaly. CHEST: Clear to auscultation. HEART: S1, S2. Regular. ABDOMEN: Soft. EXTREMITIES: Clubbing, cyanosis negative. LABORATORY DATA: Blood workup as follows: WBC 12, hemoglobin 9.1, hematocrit 30.9, platelet count 150. Chemistry shows sodium 156, potassium 5.6, chloride 122, carbon dioxide 31, anion gap of 9, BUN 90, creatinine 2.3. . Glucose 362. IMPRESSION: This is a 73-year-old female with past medical history significant for paroxysmal atrial fibrillation, obesity, history of coronary artery disease, history of coronary artery bypass graft in 2013 status post percutaneous transluminal coronary angioplasty 2015 of [place] right coronary artery graft, saphenous vein graft occluded, history of sick sinus syndrome status post permanent pacemaker, admitted with pneumonia, acute kidney injury, respiratory failure, intubated. The patient refused taking p.o. meds, started on Cardizem intravenous drip to control the blood pressure as well as clonidine patch and intravenous p.r.n. hydralazine. Today, potassium is 5.6. Discussed with the patient. The patient is willing to take p.o. Discussed with the duty nurse taking care. We will give 30 g of Kayexalate now. History of pulmonary hypertension, was on Revatio. Hypernatremia is also an issue. RECOMMENDATIONS: Discussed with the patient, the patient is willing to take p.o. If the patient starts to take p.o., liberalize fluid, give Kayexalate p.o., continue Eliquis, continue gentle hydration. Overall, the patient's condition is critical. Long-term prognosis is guarded. We will follow with you. Eventually the patient may need dialysis. Thank you, Dr. Schultz for providing us the opportunity in taking care of the patient, Sobeida Emerson. Sapna Latif MD
--- NOTE | 2018-11-06 14:52 | PN ---
DATE: 11/06/2018 SUBJECTIVE: The patient is 73-year-old, seen and examined. Looks much more alert. Family is at the bedside. She did eat little better today. She has been sucking on her seem to be relatively clear today. PHYSICAL EXAMINATION: GENERAL: She still has back part of the tongue and the middle of the tongue. VITAL SIGNS: She is afebrile. Pulse 61, respiration 18 and blood pressure 191/51. LUNGS: Bilateral fair airflow. No rhonchi or crackle. Decreased breath sound at bases. HEART: S1 and S2, audible. ABDOMEN: Soft, obese and nontender. No rebound. No guarding. NEUROLOGIC: She is awake, alert and able to communicate. LABORATORY DATA: WBC is 12.7, hemoglobin 9.1, hematocrit 30.9 and platelet 150. Chemistry: Sodium 156, potassium 5.6, chloride 122, CO2 of 31, BUN 19, creatinine 2.3 and blood sugar 362. ASSESSMENT: 1. Acute on chronic renal failure. 2. Pulmonary hypertension. 3. Chronic obstructive pulmonary disease, improving. 4. Congestive heart failure, improving. 5. Coronary artery disease, status post open heart surgery. 6. Anemia. PLAN: Currently, the patient is on hydralazine 50 mg every 12. Continue her on Verapamil. Discontinue her Carafate. She is on amiodarone we will continue that. She is on 60 mL of IV fluid. She was started on Diflucan since she was not taking anything orally for her oral thrush. She is on Eliquis. Blood sugar is being monitor. She was given Kayexalate and Pulmicort. She is on Revatio 20 mg twice a day we will continue that. She is on IV steroid. We will followup her CBC, CMP, and electrolyte in a.m. Out of bed to chair. Laurel Schultz MD
--- NOTE | 2018-11-06 16:01 | CP.PCM.PN ---
<Mathew Vigil - Last Filed: 11/06/18 15:59> Subjective - Date & Time of Evaluation Date of Evaluation: 11/06/18 Time of Evaluation: 09:30 - Subjective Subjective: Mathew Vigil D.O. PGY-3, Internal Medicine Resident, Infectious Disease Progress Note 73 year old female admitted to ICU for hypertensive emergency complicated by ventilator dependent hypercapnic respiratory failure in the setting of cardior enal syndrome, hospital course complicated for pseudomonas UTI and pyelonephritis. Infectious disease consultation was requested for pneumonia. Patient was seen and examined at bedside. Breathing comfortably on NC. No active complaints. Objective - Vital Signs/Intake and Output Vital Signs (last 24 hours): Temp Pulse Resp BP Pulse Ox 97.5 F L 60 20 180/65 H 97 11/06/18 12:00 11/06/18 14:00 11/06/18 12:00 11/06/18 12:00 11/06/18 09:00 Intake and Output: 11/06/18 11/06/18 06:59 18:59 Intake Total 1010 100 Balance 1010 100 - Medications Medications: Current Medications Acetaminophen (Tylenol 325mg Tab) 650 mg PO Q6H PRN PRN Reason: Fever >100.4 F Last Admin: 10/21/18 16:47 Dose: 650 mg Albuterol/Ipratropium (Duoneb 3 Mg/0.5 Mg (3 Ml) Ud) 3 ml IH Q2H PRN PRN Reason: Shortness of Breath Last Admin: 10/19/18 10:38 Dose: 3 ml Alprazolam (Xanax) 0.25 mg PO BID PRN; Protocol PRN Reason: Anxiety Stop: 11/08/18 11:01 Last Admin: 11/03/18 18:28 Dose: 0.25 mg Amiodarone HCl (Cordarone) 200 mg PO DAILY [facility] Last Admin: 11/06/18 10:38 Dose: 200 mg Apixaban (Eliquis) 2.5 mg PO BID [facility]; Protocol Last Admin: 11/06/18 10:38 Dose: 2.5 mg Atorvastatin Calcium (Lipitor) 40 mg PO DAILY [facility] Last Admin: 11/06/18 10:38 Dose: 40 mg Budesonide (Pulmicort Respules) 0.5 mg IH [id number] [facility] Last Admin: 11/06/18 08:06 Dose: 0.5 mg Clonidine HCl (Catapres-Tts3 0.3 Mg/24 Hr) 1 patch TD Q7D@1000 LINDA Last Admin: 11/04/18 15:50 Dose: 1 patch Clotrimazole (Mycelex Nelia) 10 mg MT 5XD [facility] Last Admin: 11/06/18 13:57 Dose: 10 mg Dextrose (Dextrose 50% Inj) 0 ml IV STAT PRN; Protocol PRN Reason: Hypoglycemia Protocol Folic Acid (Folic Acid) 1 mg PO DAILY [facility] Last Admin: 11/06/18 10:37 Dose: 1 mg Hydralazine HCl (Apresoline) 50 mg PO BID [facility] Last Admin: 11/06/18 11:17 Dose: Not Given Hydralazine HCl (Apresoline) 10 mg IVP Q4 PRN PRN Reason: SBP > 180 Last Admin: 11/06/18 10:21 Dose: 10 mg Dextrose (Dextrose 5% In Water 1000 Ml) 1,000 mls @ 60 mls/hr IV .[id number] [facility] Last Admin: 11/06/18 10:22 Dose: 60 mls/hr diltiaZEM IVPB 100mg in NS (Cardizem 100mg In Ns) 100 mls @ 10 mls/hr IV .Q10H PRN; Protocol PRN Reason: TITRATE PER MD ORDER Last Admin: 11/06/18 11:01 Dose: 10 mls/hr Fluconazole (Diflucan Iv 100 Mg/50 Ml Ns) 50 mls @ 100 mls/hr IVPB DAILY [facility]; Protocol Last Admin: 11/06/18 11:18 Dose: 100 mls/hr Insulin Human Regular (Humulin R High) 0 units SC ACHS [facility]; Protocol Last Admin: 11/06/18 12:09 Dose: 12 units Levalbuterol HCl (Xopenex) 1.25 mg IH [id number] [facility] Last Admin: 11/06/18 13:38 Dose: 1.25 mg Methylprednisolone (Solu-Medrol) 20 mg IVP Q12 [facility] Last Admin: 11/06/18 10:37 Dose: 20 mg Metoprolol Tartrate (Lopressor) 50 mg PO BID [facility] Last Admin: 11/06/18 10:38 Dose: 50 mg Montelukast Sodium (Singulair) 10 mg PO HS [facility] Last Admin: 11/05/18 21:56 Dose: Not Given Ondansetron HCl (Zofran Inj) 4 mg IVP Q6H PRN PRN Reason: Nausea/Vomiting Last Admin: 10/19/18 07:55 Dose: 4 mg Pantoprazole Sodium (Protonix Inj) 40 mg IVP DAILY [facility] Last Admin: 11/06/18 10:37 Dose: 40 mg Polyethylene Glycol (Miralax) 17 gm PO BID [facility] Last Admin: 11/06/18 10:37 Dose: 17 gm Pregabalin (Lyrica) 75 mg PO BID [facility] Last Admin: 10/24/18 09:45 Dose: 75 mg Sildenafil Citrate (Revatio) 20 mg PO BID [facility] Last Admin: 11/06/18 10:39 Dose: 20 mg Verapamil HCl (Verapamil Inj) 2.5 mg IVP Q6H PRN PRN Reason: for Heart rate >120 Last Admin: 10/26/18 02:12 Dose: 2.5 mg Verapamil HCl (Calan Sr Tab) 240 mg PO DAILY [facility] Last Admin: 11/06/18 10:38 Dose: 240 mg Vitamin A (Vitamin A & D Oint Ud Foilpak) 1 ea TOP BID [facility] Last Admin: 11/06/18 11:32 Dose: Not Given - Labs Labs: 11/06/18 07:00 11/06/18 07:00 PT 14.8 SECONDS (9.4-12.5) H 10/23/18 14:00 INR 1.33 10/23/18 14:00 APTT 26.6 Seconds (26.9-38.3) L 10/23/18 14:00 - Constitutional Appears: Non-toxic, Chronically Ill - Head Exam Head Exam: ATRAUMATIC, NC - Eye Exam Eye Exam: EOMI - ENT Exam ENT Exam: Mucous Membranes Moist - Neck Exam Neck Exam: Normal Inspection - Cardiovascular Exam Cardiovascular Exam: S1, S2 - GI/Abdominal Exam GI & Abdominal Exam: Soft - Extremities Exam Extremities Exam: absent: Tenderness - Neurological Exam Neurological Exam: Alert, Awake - Skin Skin Exam: Dry, Warm Assessment and Plan - Assessment and Plan (Free Text) Assessment: 73 year old female admitted to ICU for hypertensive emergency complicated by ventilator dependent hypercapnic respiratory failure in the setting of cardiorenal syndrome, hospital course complicated for pseudomonas UTI and pyelonephritis. Infectious disease consultation was requested for pneumonia. Plan: Pseudomonas UTI and pyelonephritis - resolved HAP - resolved Continue to be afebrile with no leukocytosis Monitoring off abx at this time as they are not indicated Continue to be at increased risk for nosocomial infections Will continue to follow with you Patient was seen and examined and case to be discussed with attending physician Thank you for the pleasure of participating in the care of this interesting patient <Juan Miguel Malone - Last Filed: 11/06/18 20:55> Objective - Vital Signs/Intake and Output Vital Signs (last 24 hours): Temp Pulse Resp BP Pulse Ox 97.5 F L 59 L 20 176/62 H 97 11/06/18 18:00 11/06/18 18:00 11/06/18 18:00 11/06/18 18:00 11/06/18 09:00 Intake and Output: 11/06/18 11/07/18 18:59 06:59 Intake Total 990 598 Output Total 500 Balance 990 98 - Medications Medications: Current Medications Acetaminophen (Tylenol 325mg Tab) 650 mg PO Q6H PRN PRN Reason: Fever >100.4 F Last Admin: 10/21/18 16:47 Dose: 650 mg Albuterol/Ipratropium (Duoneb 3 Mg/0.5 Mg (3 Ml) Ud) 3 ml IH Q2H PRN PRN Reason: Shortness of Breath Last Admin: 10/19/18 10:38 Dose: 3 ml Alprazolam (Xanax) 0.25 mg PO BID PRN; Protocol PRN Reason: Anxiety Stop: 11/08/18 11:01 Last Admin: 11/03/18 18:28 Dose: 0.25 mg Amiodarone HCl (Cordarone) 200 mg PO DAILY LINDA Last Admin: 11/06/18 10:38 Dose: 200 mg Apixaban (Eliquis) 2.5 mg PO BID LINDA; Protocol Last Admin: 11/06/18 17:48 Dose: 2.5 mg Atorvastatin Calcium (Lipitor) 40 mg PO DAILY [facility] Last Admin: 11/06/18 10:38 Dose: 40 mg Budesonide (Pulmicort Respules) 0.5 mg IH [id number] [facility] Last Admin: 11/06/18 19:20 Dose: 0.5 mg Clonidine HCl (Catapres-Tts3 0.3 Mg/24 Hr) 1 patch TD Q7D@1000 [facility] Last Admin: 11/04/18 15:50 Dose: 1 patch Clotrimazole (Mycelex Nelia) 10 mg MT 5XD [facility] Last Admin: 11/06/18 17:48 Dose: 10 mg Dextrose (Dextrose 50% Inj) 0 ml IV STAT PRN; Protocol PRN Reason: Hypoglycemia Protocol Folic Acid (Folic Acid) 1 mg PO DAILY [facility] Last Admin: 11/06/18 10:37 Dose: 1 mg Hydralazine HCl (Apresoline) 50 mg PO BID [facility] Last Admin: 11/06/18 17:48 Dose: 50 mg Hydralazine HCl (Apresoline) 10 mg IVP Q4 PRN PRN Reason: SBP > 180 Last Admin: 11/06/18 10:21 Dose: 10 mg Dextrose (Dextrose 5% In Water 1000 Ml) 1,000 mls @ 60 mls/hr IV .[id number] [facility] Last Admin: 11/06/18 10:22 Dose: 60 mls/hr diltiaZEM IVPB 100mg in NS (Cardizem 100mg In Ns) 100 mls @ 10 mls/hr IV .Q10H PRN; Protocol PRN Reason: TITRATE PER MD ORDER Last Admin: 11/06/18 11:01 Dose: 10 mls/hr Fluconazole (Diflucan Iv 100 Mg/50 Ml Ns) 50 mls @ 100 mls/hr IVPB DAILY [facility]; Protocol Last Admin: 11/06/18 11:18 Dose: 100 mls/hr Insulin Human Regular (Humulin R High) 0 units SC ACHS [facility]; Protocol Last Admin: 11/06/18 17:04 Dose: 12 units Levalbuterol HCl (Xopenex) 1.25 mg IH [id number] [facility] Last Admin: 11/06/18 19:20 Dose: 1.25 mg Methylprednisolone (Solu-Medrol) 20 mg IVP Q12 [facility] Last Admin: 11/06/18 10:37 Dose: 20 mg Metoprolol Tartrate (Lopressor) 50 mg PO BID [facility] Last Admin: 11/06/18 17:48 Dose: 50 mg Montelukast Sodium (Singulair) 10 mg PO HS [facility] Last Admin: 11/05/18 21:56 Dose: Not Given Ondansetron HCl (Zofran Inj) 4 mg IVP Q6H PRN PRN Reason: Nausea/Vomiting Last Admin: 10/19/18 07:55 Dose: 4 mg Pantoprazole Sodium (Protonix Inj) 40 mg IVP DAILY [facility] Last Admin: 11/06/18 10:37 Dose: 40 mg Polyethylene Glycol (Miralax) 17 gm PO BID [facility] Last Admin: 11/06/18 17:48 Dose: 17 gm Pregabalin (Lyrica) 75 mg PO BID [facility] Last Admin: 10/24/18 09:45 Dose: 75 mg Sildenafil Citrate (Revatio) 20 mg PO BID [facility] Last Admin: 11/06/18 17:48 Dose: 20 mg Verapamil HCl (Verapamil Inj) 2.5 mg IVP Q6H PRN PRN Reason: for Heart rate >120 Last Admin: 10/26/18 02:12 Dose: 2.5 mg Verapamil HCl (Calan Sr Tab) 240 mg PO DAILY [facility] Last Admin: 11/06/18 10:38 Dose: 240 mg Vitamin A (Vitamin A & D Oint Ud Foilpak) 1 ea TOP BID [facility] Last Admin: 11/06/18 18:02 Dose: Not Given - Labs Labs: 11/06/18 07:00 11/06/18 07:00 PT 14.8 SECONDS (9.4-12.5) H 10/23/18 14:00 INR 1.33 10/23/18 14:00 APTT 26.6 Seconds (26.9-38.3) L 10/23/18 14:00 Attending/Attestation - Attestation I have personally seen and examined this patient.: Yes I have fully participated in the care of the patient.: Yes I have reviewed all pertinent clinical information, including history, physical exam and plan: Yes
--- NOTE | 2018-11-06 20:15 | PN ---
DATE: 11/06/2018 SUBJECTIVE: The patient is seen sitting in chair. The patient is awake. She is alert. She is mildly tachypneic. She denies any chest pain. She denies any palpitations. PHYSICAL EXAMINATION: GENERAL: Elderly lady sitting in chair. VITAL SIGNS: Blood pressure 180/65, heart rate 60, respiratory rate 18-24, and temperature 97.5. HEENT: Normocephalic and atraumatic. Positive pallor. NECK: Supple. No JVD. LUNGS: Bilateral equal air entry, distant breath sounds. No rales appreciated. CARDIAC: S1 and S2, regular rate and rhythm. No murmur. No rub. ABDOMEN: Obese, distended, soft, and nontender. Bowel sounds present. EXTREMITIES: No lower extremity edema. INTAKE AND OUTPUT: Not charted. LABORATORY DATA: WBC 12, hemoglobin 9.1, hematocrit 30.9, and platelets 150. Sodium 156, potassium 5.6, chloride 122, CO2 of 31, BUN 90, creatinine 2.3, glucose 362, calcium 9.5, phosphorus 3.3, magnesium 2.8, and albumin 3.2. CURRENT MEDICATIONS: Apresoline 50 b.i.d., Calan 240, Cardizem 10 mg per hour, Catapres 0.3 patch, Cordarone 200, D5W at 60, fluconazole, DuoNeb, Eliquis 2.5 b.i.d., folic acid 1 mg, Lipitor 40, Lopressor 50 b.i.d., Lyrica 75 b.i.d., MiraLax 17 g, Protonix 40, Revatio 20 b.i.d., and Solu-Medrol 20 IV every 12 hours. ASSESSMENT: 1. Hypernatremia/dehydration. 2. Hyperkalemia. 3. Chronic kidney disease stage IV, resolved acute kidney injury. 4. Severe pulmonary hypertension, chronic obstructive pulmonary disease, mitral regurgitation, and tricuspid regurgitation. 5. Noninsulin-dependent diabetes mellitus. 6. Severe anemia. 7. Coronary artery disease, history of coronary artery bypass graft. PLAN: 1. Discussed with the patient importance of increasing free water intake. 2. D5W is making her sugars go up and hence the potassium is also rising. 3. Continue current antihypertensives. 4. Difficult clinical scenario since the patient needs free water, but she would not drink it, BUN and creatinine elevated because of dehydration. Doris Antunez MD
[2018-11-07] MEDS: Levalbuterol 1.25 MG/3 ML Inhal Soln UD IH SCH ×4 (01:02→19:24)
[2018-11-07 07:05] LABS: HEMOGLOBIN 10.3 g/dL (12.0-16.0); MEAN CELL VOLUME 90.3 fl (80.0-105.0); MEAN CORPUSCULAR HGB CONC 29.9 g/dl (31.0-37.0); PLATELET COUNT 129 10^3/uL (120.0-450.0); RBC 3.82 10^6/uL (3.5-6.1); RED CELL DISTRIBUTION WIDTH 16.6 % (11.5-14.5); WHITE BLOOD COUNT 11.3 10^3/uL (4.5-11.0)
[2018-11-07] MEDS: Budesonide 0.5 mg/2 ml Inhal Susp UD IH SCH ×2 (07:27→19:24)
[2018-11-07 07:32] LABS: ALB/GLOB RATIO 1.2 (1.1-1.8); ALBUMIN 3.5 g/dL (3.0-4.8); CALCIUM 9.9 mg/dL (8.4-10.5)
[2018-11-07] MEDS: Insulin Reg-HIGH-Coverage SC SCH ×4 (07:46→23:35)
--- NOTE | 2018-11-07 08:06 | PN ---
DATE: 11/07/2018 PULMONARY NOTE SUBJECTIVE: The patient appears quite comfortable this morning. She is not short of breath at rest. She is awake and alert. OBJECTIVE: VITALS: Temperature 97.4, pulse 87, respirations 18, blood pressure 184/79. Oxygen saturation on nasal cannula 98% to 100%. HEENT: Normocephalic, atraumatic. No JVD. CARDIOVASCULAR: Systolic ejection murmur at the lower left sternal border. Positive S3 gallop. LUNGS: Minimal/less crackles at the bases. No rhonchi or wheezing this morning. EXTREMITIES: Mild edema. No cyanosis, no clubbing. Calves are nontender to palpation. GASTROINTESTINAL: Abdomen is soft, nontender, and nondistended. Bowel sounds are positive. SKIN: No acute rash. NEUROLOGIC: Limited at the present time. IMPRESSION: 1. Respiratory failure. 2. Acute congestive heart failure. 3. Advanced chronic obstructive pulmonary disease. 4. Right lower lobe pneumonia. 5. Rule out myocardial infarction. 6. Paroxysmal atrial fibrillation. 7. Renal insufficiency. PLAN: The patient appears very comfortable this morning. She is not short of breath at rest. She is awake and alert. I did discuss the case with the night nurse and daughter at length. They are both of the opinion that the patient continues to improve. On physical exam, her bronchospasm continues to resolve. In addition, the oxygen saturation on nasal cannula is now 100%. I will continue the current nebulizer treatments and change to oral steroids this morning. The patient is now taking oral medication well. The patient also remains on Revatio - for the pulmonary hypertension. Inputs by Cardiology, Renal, and Infectious Disease are also noted. Clinical status of the patient is significantly improved overall. However, given the above, the future status/prognosis for this patient does remain guarded. I will discuss the above the attending physician. Bhupinder Chiang MD [facility]
[2018-11-07] MEDS: Sildenafil 20 MG TAB PO SCH ×2 (09:28→18:10)
[2018-11-07] MEDS: Verapamil 120 mg ER Tab PO SCH (09:28)
[2018-11-07] MEDS: POLYETHYLENE GLYCOL 3350 17 GM/Dose PACKET PO SCH ×3 (09:29→18:11)
[2018-11-07] MEDS: Vitamins A & D Oint UD Foilpak TOP SCH ×2 (09:29→18:10)
[2018-11-07] MEDS: Fluconazole IV 100mg/50 ml NS 50 ML IVPB SCH (10:36)
--- NOTE | 2018-11-07 10:39 | CP.PCM.PN ---
Subjective - Date & Time of Evaluation Date of Evaluation: 11/07/18 Time of Evaluation: 06:30 - Subjective Subjective: Awake, alert, no distress Reason for consultation and follow up: Cardiac evaluation of shortness of breath , respiratory failure, intubated and successfully extubated, pneumonia, history of coronary artery disease, history of CABG, PTCA, history of atrial fibrillation Seen and examined by me and Dr. Latif Objective - Vital Signs/Intake and Output Vital Signs (last 24 hours): Temp Pulse Resp BP Pulse Ox 97.4 F L 60 18 149/47 L 98 11/07/18 06:00 11/07/18 09:28 11/07/18 06:00 11/07/18 09:28 11/07/18 06:00 Intake and Output: 11/07/18 11/07/18 06:59 18:59 Intake Total 1598 Output Total 700 Balance 898 - Medications Medications: Current Medications Acetaminophen (Tylenol 325mg Tab) 650 mg PO Q6H PRN PRN Reason: Fever >100.4 F Last Admin: 10/21/18 16:47 Dose: 650 mg Albuterol/Ipratropium (Duoneb 3 Mg/0.5 Mg (3 Ml) Ud) 3 ml IH Q2H PRN PRN Reason: Shortness of Breath Last Admin: 10/19/18 10:38 Dose: 3 ml Alprazolam (Xanax) 0.25 mg PO BID PRN; Protocol PRN Reason: Anxiety Stop: 11/08/18 11:01 Last Admin: 11/03/18 18:28 Dose: 0.25 mg Amiodarone HCl (Cordarone) 200 mg PO DAILY [facility] Last Admin: 11/07/18 09:28 Dose: 200 mg Apixaban (Eliquis) 2.5 mg PO BID [facility]; Protocol Last Admin: 11/07/18 09:29 Dose: 2.5 mg Atorvastatin Calcium (Lipitor) 40 mg PO DAILY [facility] Last Admin: 11/07/18 09:28 Dose: 40 mg Budesonide (Pulmicort Respules) 0.5 mg IH [id number] [facility] Last Admin: 11/07/18 07:27 Dose: 0.5 mg Clonidine HCl (Catapres-Tts3 0.3 Mg/24 Hr) 1 patch TD Q7D@1000 [facility] Last Admin: 11/04/18 15:50 Dose: 1 patch Clotrimazole (Mycelex Nelia) 10 mg MT 5XD [facility] Last Admin: 11/07/18 09:29 Dose: 10 mg Dextrose (Dextrose 50% Inj) 0 ml IV STAT PRN; Protocol PRN Reason: Hypoglycemia Protocol Folic Acid (Folic Acid) 1 mg PO DAILY [facility] Last Admin: 11/07/18 09:27 Dose: 1 mg Hydralazine HCl (Apresoline) 50 mg PO BID [facility] Last Admin: 11/07/18 09:28 Dose: 50 mg Hydralazine HCl (Apresoline) 10 mg IVP Q4 PRN PRN Reason: SBP > 180 Last Admin: 11/07/18 06:41 Dose: 10 mg Dextrose (Dextrose 5% In Water 1000 Ml) 1,000 mls @ 60 mls/hr IV .[id number] [facility] Last Admin: 11/06/18 22:56 Dose: 60 mls/hr diltiaZEM IVPB 100mg in NS (Cardizem 100mg In Ns) 100 mls @ 10 mls/hr IV .Q10H PRN; Protocol PRN Reason: TITRATE PER MD ORDER Last Admin: 11/06/18 22:55 Dose: 10 mls/hr Fluconazole (Diflucan Iv 100 Mg/50 Ml Ns) 50 mls @ 100 mls/hr IVPB DAILY [facility]; Protocol Last Admin: 11/06/18 11:18 Dose: 100 mls/hr Insulin Human Regular (Humulin R High) 0 units SC ACHS [facility]; Protocol Last Admin: 11/07/18 07:46 Dose: 10 units Levalbuterol HCl (Xopenex) 1.25 mg IH [id number] [facility] Last Admin: 11/07/18 07:27 Dose: 1.25 mg Metoprolol Tartrate (Lopressor) 50 mg PO BID [facility] Last Admin: 11/07/18 09:28 Dose: 50 mg Montelukast Sodium (Singulair) 10 mg PO HS [facility] Last Admin: 11/06/18 22:16 Dose: 10 mg Ondansetron HCl (Zofran Inj) 4 mg IVP Q6H PRN PRN Reason: Nausea/Vomiting Last Admin: 10/19/18 07:55 Dose: 4 mg Pantoprazole Sodium (Protonix Inj) 40 mg IVP DAILY [facility] Last Admin: 11/07/18 09:27 Dose: 40 mg Polyethylene Glycol (Miralax) 17 gm PO BID [facility] Last Admin: 11/07/18 09:42 Dose: Not Given Prednisone (Prednisone Tab) 30 mg PO DAILY [facility] Last Admin: 11/07/18 09:27 Dose: 30 mg Pregabalin (Lyrica) 75 mg PO BID [facility] Last Admin: 10/24/18 09:45 Dose: 75 mg Sildenafil Citrate (Revatio) 20 mg PO BID [facility] Last Admin: 11/07/18 09:28 Dose: 20 mg Verapamil HCl (Verapamil Inj) 2.5 mg IVP Q6H PRN PRN Reason: for Heart rate >120 Last Admin: 10/26/18 02:12 Dose: 2.5 mg Verapamil HCl (Calan Sr Tab) 240 mg PO DAILY [facility] Last Admin: 11/07/18 09:28 Dose: 240 mg Vitamin A (Vitamin A & D Oint Ud Foilpak) 1 ea TOP BID [facility] Last Admin: 11/07/18 09:29 Dose: 1 ea - Labs Labs: 11/07/18 06:50 11/07/18 06:50 PT 14.8 SECONDS (9.4-12.5) H 10/23/18 14:00 INR 1.33 10/23/18 14:00 APTT 26.6 Seconds (26.9-38.3) L 10/23/18 14:00 - Constitutional Appears: Non-toxic, No Acute Distress - Head Exam Head Exam: NORMAL INSPECTION, NORMOCEPHALIC - Eye Exam Eye Exam: Normal appearance Pupil Exam: NORMAL ACCOMODATION - ENT Exam ENT Exam: Mucous Membranes Moist, Normal Exam - Respiratory Exam Respiratory Exam: Decreased Breath Sounds, Clear to Ausculation Bilateral, NORMAL BREATHING PATTERN - Cardiovascular Exam Cardiovascular Exam: REGULAR RHYTHM, +S1, +S2 - GI/Abdominal Exam GI & Abdominal Exam: Soft, Normal Bowel Sounds - Neurological Exam Neurological Exam: Alert, Awake - Psychiatric Exam Psychiatric exam: Normal Affect, Normal Mood - Skin Skin Exam: Dry, Normal Color, Warm Assessment and Plan - Assessment and Plan (Free Text) Assessment: A 73 year old female who came in to the ER due to shortness of breath requiring intubation and admitted to ICU. Successfully extubated and now transferred to telemetry. History of history of coronary artery disease, history of CABG in 2013, PTCA in 2014, history of atrial fibrillation, sisck sinus syndrome requiring PPM, history of pulmonary hypertension on Revatio. Recent Echo on 10/19/18 showed LVEF 55-60%, moderately reduced RV systolic function, trace AR/MR, mild Tr , RVSP 55 mmHg, moderate pulmonary hypertension. Cardiac status stable. Clinically improved. Physical therapy. Starts to take oral intake. will discontinue Cardizem drip. Plan: No distress, denies shortness of breath Heart rate controlled Blood pressure controlled Cardiac status stable Clinically improving On Amiodarone 200 mg daily,Eliquis 2.5 mg BID, Lipitor 40 mg daily, Catapres 0.3 mg patch daily, Hydralazine 50 mg BID, lopressor 50 mg BID, Revatio 20 mg BID, Verapamil 240 mg daily Discontinue IV Cardizem Continue current treatment Continue current medications Physical therapy Will follow up Seen and examined by me and Dr. Latif
--- NOTE | 2018-11-07 14:42 | PN ---
DATE: 11/07/2018 SUBJECTIVE: The patient is 73 years old, seen and examined, lying in bed, seems to be comfortable, seems to be more alert. Started to eat little better, but still have no energy. Eating poorly. PHYSICAL EXAMINATION VITAL SIGNS: She is afebrile, pulse 60, respiration 20, blood pressure 149/47. LUNGS: Bilateral fair airflow. No rhonchi or crackle. Posteriorly, she has decreased breath sounds, especially at bases. HEART: S1 and S2 audible. Irregular. Rate controlled. ABDOMEN: Soft. EXTREMITIES: Bilateral leg, no edema. LABORATORY DATA: WBC 11.3, hemoglobin 10.3, hematocrit 34.5, platelet of 129. Chemistry; sodium 156, potassium 4.7, chloride 119, CO2 of 33, BUN 80, creatinine 2.4, blood sugar 300. ASSESSMENT: 1. Poor oral intake. 2. Deconditioning. 3. Hypernatremia. 4. Hyperkalemia. 5. Improving blood urea nitrogen and creatinine. 6. Chronic obstructive pulmonary disease. 7. Pulmonary hypertension. 8. Congestive heart failure. 9. Oral thrush. 10. Paroxysmal atrial fibrillation. PLAN: Continue the patient on verapamil. She is on amiodarone. She is on Catapres #3. She is on 60 mL of IV fluid. Continue her on Eliquis. Followup her electrolytes. Out of bed to chair. Once her oral intake improve, we will make disposition plan. She need to go to subacute rehab. Laurel Schultz MD
--- NOTE | 2018-11-07 14:53 | CP.PCM.PN ---
<Mathew Vigil - Last Filed: 11/07/18 14:51> Subjective - Date & Time of Evaluation Date of Evaluation: 11/07/18 Time of Evaluation: 07:35 - Subjective Subjective: Mathew Vigil D.O. PGY-3, Internal Medicine Resident, Infectious Disease Progress Note 73 year old female admitted to ICU for hypertensive emergency complicated by ventilator dependent hypercapnic respiratory failure in the setting of cardior enal syndrome, hospital course complicated for pseudomonas UTI and pyelonephritis. Infectious disease consultation was requested for pneumonia. Patient was seen and examined at bedside. Having a hard time with PO intake. Not getting enough water. In no discomfort. Objective - Vital Signs/Intake and Output Vital Signs (last 24 hours): Temp Pulse Resp BP Pulse Ox 97.4 F L 60 18 149/47 L 98 11/07/18 06:00 11/07/18 10:00 11/07/18 06:00 11/07/18 09:28 11/07/18 06:00 Intake and Output: 11/07/18 11/07/18 06:59 18:59 Intake Total 1598 Output Total 700 Balance 898 - Medications Medications: Current Medications Acetaminophen (Tylenol 325mg Tab) 650 mg PO Q6H PRN PRN Reason: Fever >100.4 F Last Admin: 10/21/18 16:47 Dose: 650 mg Albuterol/Ipratropium (Duoneb 3 Mg/0.5 Mg (3 Ml) Ud) 3 ml IH Q2H PRN PRN Reason: Shortness of Breath Last Admin: 10/19/18 10:38 Dose: 3 ml Alprazolam (Xanax) 0.25 mg PO BID PRN; Protocol PRN Reason: Anxiety Stop: 11/08/18 11:01 Last Admin: 11/03/18 18:28 Dose: 0.25 mg Amiodarone HCl (Cordarone) 200 mg PO DAILY [facility] Last Admin: 11/07/18 09:28 Dose: 200 mg Apixaban (Eliquis) 2.5 mg PO BID [facility]; Protocol Last Admin: 11/07/18 09:29 Dose: 2.5 mg Atorvastatin Calcium (Lipitor) 40 mg PO DAILY [facility] Last Admin: 11/07/18 09:28 Dose: 40 mg Budesonide (Pulmicort Respules) 0.5 mg IH [id number] [facility] Last Admin: 11/07/18 07:27 Dose: 0.5 mg Clonidine HCl (Catapres-Tts3 0.3 Mg/24 Hr) 1 patch TD Q7D@1000 [facility] Last Admin: 11/04/18 15:50 Dose: 1 patch Clotrimazole (Mycelex Nelia) 10 mg MT 5XD [facility] Last Admin: 11/07/18 09:29 Dose: 10 mg Dextrose (Dextrose 50% Inj) 0 ml IV STAT PRN; Protocol PRN Reason: Hypoglycemia Protocol Folic Acid (Folic Acid) 1 mg PO DAILY [facility] Last Admin: 11/07/18 09:27 Dose: 1 mg Hydralazine HCl (Apresoline) 50 mg PO BID [facility] Last Admin: 11/07/18 09:28 Dose: 50 mg Hydralazine HCl (Apresoline) 10 mg IVP Q4 PRN PRN Reason: SBP > 180 Last Admin: 11/07/18 06:41 Dose: 10 mg Dextrose (Dextrose 5% In Water 1000 Ml) 1,000 mls @ 60 mls/hr IV .[id number] [facility] Last Admin: 11/06/18 22:56 Dose: 60 mls/hr Fluconazole (Diflucan Iv 100 Mg/50 Ml Ns) 50 mls @ 100 mls/hr IVPB DAILY [facility]; Protocol Last Admin: 11/07/18 10:36 Dose: 100 mls/hr Insulin Human Regular (Humulin R High) 0 units SC ACHS [facility]; Protocol Last Admin: 11/07/18 12:57 Dose: 10 units Levalbuterol HCl (Xopenex) 1.25 mg IH [id number] [facility] Last Admin: 11/07/18 13:10 Dose: 1.25 mg Metoprolol Tartrate (Lopressor) 50 mg PO BID [facility] Last Admin: 11/07/18 09:28 Dose: 50 mg Montelukast Sodium (Singulair) 10 mg PO HS [facility] Last Admin: 11/06/18 22:16 Dose: 10 mg Ondansetron HCl (Zofran Inj) 4 mg IVP Q6H PRN PRN Reason: Nausea/Vomiting Last Admin: 10/19/18 07:55 Dose: 4 mg Pantoprazole Sodium (Protonix Inj) 40 mg IVP DAILY [facility] Last Admin: 11/07/18 09:27 Dose: 40 mg Polyethylene Glycol (Miralax) 17 gm PO BID [facility] Last Admin: 11/07/18 09:42 Dose: Not Given Prednisone (Prednisone Tab) 30 mg PO DAILY [facility] Last Admin: 11/07/18 09:27 Dose: 30 mg Pregabalin (Lyrica) 75 mg PO BID [facility] Last Admin: 10/24/18 09:45 Dose: 75 mg Sildenafil Citrate (Revatio) 20 mg PO BID [facility] Last Admin: 11/07/18 09:28 Dose: 20 mg Verapamil HCl (Verapamil Inj) 2.5 mg IVP Q6H PRN PRN Reason: for Heart rate >120 Last Admin: 10/26/18 02:12 Dose: 2.5 mg Verapamil HCl (Calan Sr Tab) 240 mg PO DAILY [facility] Vitamin A (Vitamin A & D Oint Ud Foilpak) 1 ea TOP BID [facility] Last Admin: 11/07/18 09:29 Dose: 1 ea - Labs Labs: 11/07/18 06:50 11/07/18 06:50 PT 14.8 SECONDS (9.4-12.5) H 10/23/18 14:00 INR 1.33 10/23/18 14:00 APTT 26.6 Seconds (26.9-38.3) L 10/23/18 14:00 - Constitutional Appears: Non-toxic, Chronically Ill - Head Exam Head Exam: ATRAUMATIC, NC - Eye Exam Eye Exam: EOMI - ENT Exam ENT Exam: Mucous Membranes Moist - Neck Exam Neck Exam: Normal Inspection - Cardiovascular Exam Cardiovascular Exam: S1, S2 - GI/Abdominal Exam GI & Abdominal Exam: Soft - Extremities Exam Extremities Exam: absent: Tenderness - Neurological Exam Neurological Exam: Alert, Awake - Skin Skin Exam: Dry, Warm Assessment and Plan - Assessment and Plan (Free Text) Assessment: 73 year old female admitted to ICU for hypertensive emergency complicated by ventilator dependent hypercapnic respiratory failure in the setting of cardiorenal syndrome, hospital course complicated for pseudomonas UTI and pyelo nephritis. Infectious disease consultation was requested for pneumonia. Plan: Pseudomonas UTI and pyelonephritis - resolved HAP - resolved Afebrile No leukocytosis Monitoring off abx At increased risk for nosocomial infections Will follow with you Patient was seen and examined and case to be discussed with attending physician Thank you for the pleasure of participating in the care of this interesting patient <Juan Miguel Malone - Last Filed: 11/07/18 16:46> Objective - Vital Signs/Intake and Output Vital Signs (last 24 hours): Temp Pulse Resp BP Pulse Ox 98.4 F 60 18 160/51 H 98 11/07/18 12:00 11/07/18 14:00 11/07/18 12:00 11/07/18 12:00 11/07/18 06:00 Intake and Output: 11/07/18 11/07/18 06:59 18:59 Intake Total 1598 Output Total 700 Balance 898 - Medications Medications: Current Medications Acetaminophen (Tylenol 325mg Tab) 650 mg PO Q6H PRN PRN Reason: Fever >100.4 F Last Admin: 10/21/18 16:47 Dose: 650 mg Albuterol/Ipratropium (Duoneb 3 Mg/0.5 Mg (3 Ml) Ud) 3 ml IH Q2H PRN PRN Reason: Shortness of Breath Last Admin: 10/19/18 10:38 Dose: 3 ml Alprazolam (Xanax) 0.25 mg PO BID PRN; Protocol PRN Reason: Anxiety Stop: 11/08/18 11:01 Last Admin: 11/03/18 18:28 Dose: 0.25 mg Amiodarone HCl (Cordarone) 200 mg PO DAILY [facility] Last Admin: 11/07/18 09:28 Dose: 200 mg Apixaban (Eliquis) 2.5 mg PO BID [facility]; Protocol Last Admin: 11/07/18 09:29 Dose: 2.5 mg Atorvastatin Calcium (Lipitor) 40 mg PO DAILY [facility] Last Admin: 11/07/18 09:28 Dose: 40 mg Budesonide (Pulmicort Respules) 0.5 mg IH [id number] [facility] Last Admin: 11/07/18 07:27 Dose: 0.5 mg Clonidine HCl (Catapres-Tts3 0.3 Mg/24 Hr) 1 patch TD Q7D@1000 [facility] Last Admin: 11/04/18 15:50 Dose: 1 patch Clotrimazole (Mycelex Nelia) 10 mg MT 5XD [facility] Last Admin: 11/07/18 15:35 Dose: Not Given Dextrose (Dextrose 50% Inj) 0 ml IV STAT PRN; Protocol PRN Reason: Hypoglycemia Protocol Folic Acid (Folic Acid) 1 mg PO DAILY [facility] Last Admin: 11/07/18 09:27 Dose: 1 mg Hydralazine HCl (Apresoline) 50 mg PO BID [facility] Last Admin: 11/07/18 09:28 Dose: 50 mg Hydralazine HCl (Apresoline) 10 mg IVP Q4 PRN PRN Reason: SBP > 180 Last Admin: 11/07/18 06:41 Dose: 10 mg Dextrose (Dextrose 5% In Water 1000 Ml) 1,000 mls @ 60 mls/hr IV .[id number] [facility] Last Admin: 11/06/18 22:56 Dose: 60 mls/hr Fluconazole (Diflucan Iv 100 Mg/50 Ml Ns) 50 mls @ 100 mls/hr IVPB DAILY [facility]; Protocol Last Admin: 11/07/18 10:36 Dose: 100 mls/hr Insulin Human Regular (Humulin R High) 0 units SC ACHS [facility]; Protocol Last Admin: 11/07/18 12:57 Dose: 10 units Levalbuterol HCl (Xopenex) 1.25 mg IH [id number] [facility] Last Admin: 11/07/18 13:10 Dose: 1.25 mg Metoprolol Tartrate (Lopressor) 50 mg PO BID [facility] Last Admin: 11/07/18 09:28 Dose: 50 mg Montelukast Sodium (Singulair) 10 mg PO HS [facility] Last Admin: 11/06/18 22:16 Dose: 10 mg Ondansetron HCl (Zofran Inj) 4 mg IVP Q6H PRN PRN Reason: Nausea/Vomiting Last Admin: 10/19/18 07:55 Dose: 4 mg Pantoprazole Sodium (Protonix Inj) 40 mg IVP DAILY [facility] Last Admin: 11/07/18 09:27 Dose: 40 mg Polyethylene Glycol (Miralax) 17 gm PO BID [facility] Last Admin: 11/07/18 09:42 Dose: Not Given Prednisone (Prednisone Tab) 30 mg PO DAILY [facility] Last Admin: 11/07/18 09:27 Dose: 30 mg Pregabalin (Lyrica) 75 mg PO BID [facility] Last Admin: 10/24/18 09:45 Dose: 75 mg Sildenafil Citrate (Revatio) 20 mg PO BID [facility] Last Admin: 11/07/18 09:28 Dose: 20 mg Verapamil HCl (Verapamil Inj) 2.5 mg IVP Q6H PRN PRN Reason: for Heart rate >120 Last Admin: 10/26/18 02:12 Dose: 2.5 mg Verapamil HCl (Calan Sr Tab) 240 mg PO DAILY [facility] Vitamin A (Vitamin A & D Oint Ud Foilpak) 1 ea TOP BID [facility] Last Admin: 11/07/18 09:29 Dose: 1 ea - Labs Labs: 11/07/18 06:50 11/07/18 06:50 PT 14.8 SECONDS (9.4-12.5) H 10/23/18 14:00 INR 1.33 10/23/18 14:00 APTT 26.6 Seconds (26.9-38.3) L 10/23/18 14:00 Attending/Attestation - Attestation I have personally seen and examined this patient.: Yes I have fully participated in the care of the patient.: Yes I have reviewed all pertinent clinical information, including history, physical exam and plan: Yes
--- NOTE | 2018-11-07 19:26 | PN ---
DATE: 11/07/2018 SUBJECTIVE: The patient is seen lying in bed. She is awake. She is alert. She is comfortable. She does not appear to be in any kind of respiratory distress today. PHYSICAL EXAMINATION: GENERAL: Elderly lady sitting in bed. VITAL SIGNS: Blood pressure 160/51, heart rate 60, respiratory rate 18, and temperature 98.4. HEENT: Normocephalic and atraumatic. Positive pallor. NECK: Supple. No JVD. LUNGS: Bilateral equal air entry, bilateral equal expansion. No rales. CARDIAC: S1 and S2. Regular rate and rhythm. No murmur. No rub. ABDOMEN: Obese, distended, soft, and nontender. Bowel sounds present. EXTREMITIES: No lower extremity edema. LABORATORY DATA: WBC 11, hemoglobin 10, hematocrit 34.5, and platelets 129. Sodium 156, potassium 4.7, chloride 119, CO2 of 33, BUN 80, creatinine 2.4, glucose 300, and calcium 9.9. CURRENT MEDICATIONS: Apresoline 50 b.i.d., clonidine 0.3 patch, Cordarone 200, fluconazole 100 mg IV daily started yesterday, Eliquis 2.5 b.i.d., folic acid, insulin, Lipitor, Lopressor 50 b.i.d., Lyrica 75 b.i.d. on hold, MiraLax 17 g b.i.d., prednisone 30 daily, Protonix 40 IV daily, Pulmicort, Revatio 20 b.i.d., Xanax 0.25 b.i.d. p.r.n., and Calan 240 mg daily. ASSESSMENT: 1. Hyperkalemia, resolved. 2. Acute kidney injury superimposed on chronic kidney disease stage IV, resolving acute kidney injury. 3. Hypernatremia/dehydration. 4. Chronic obstructive pulmonary disease, right heart failure. 5. Congestive heart failure compensated. 6. History of coronary artery bypass graft. 7. Noninsulin-dependent diabetes mellitus. 8. Hypertension. 9. Severe anemia. PLAN: 1. Push p.o. free water. 2. Continue MiraLax. 3. Push p.o. intake in general. 4. Physical therapy. 5. Discussed with Dr. Latif, he suggests psychiatric evaluation for depression. Doris Antunez MD [facility] # [id number]
[2018-11-08] MEDS: Levalbuterol 1.25 MG/3 ML Inhal Soln UD IH SCH ×4 (01:36→20:31)
[2018-11-08] MEDS ORDERED: Insulin Regular 1 UNITS/0.01 ML ML SC ONE (02:27)
[2018-11-08 07:06] LABS: HEMOGLOBIN 9.5 g/dL (12.0-16.0); MEAN CELL VOLUME 90.9 fl (80.0-105.0); MEAN CORPUSCULAR HEMOGLOBIN 26.2 pg (25.0-35.0); MEAN CORPUSCULAR HGB CONC 28.8 g/dl (31.0-37.0); PLATELET COUNT 138 10^3/uL (120.0-450.0); RBC 3.63 10^6/uL (3.5-6.1); RED CELL DISTRIBUTION WIDTH 16.5 % (11.5-14.5); WHITE BLOOD COUNT 10.9 10^3/uL (4.5-11.0)
[2018-11-08 07:24] LABS: CALCIUM 9.3 mg/dL (8.4-10.5)
[2018-11-08] MEDS: Budesonide 0.5 mg/2 ml Inhal Susp UD IH SCH ×2 (07:39→20:31)
--- NOTE | 2018-11-08 07:53 | PN ---
DATE: 11/08/2018 PULMONARY PROGRESS NOTE SUBJECTIVE: The patient appears very comfortable this morning. She is not short of breath at rest. PHYSICAL EXAMINATION VITAL SIGNS: (Last noted in the computer); temperature is 97.4, pulse is 60, respirations 18/20, blood pressure 174/68. Oxygen saturation on nasal cannula is 98%. HEENT: Normocephalic, atraumatic. No JVD. CARDIOVASCULAR: Systolic ejection murmur at the lower left sternal border. Positive S3 gallop. LUNGS: Minimal/less crackles at the bases. Very minimal/less rhonchi. No wheezing. GI: Abdomen is Soft, nontender and nondistended. Bowel sounds are positive. EXTREMITIES: Mild edema. No cyanosis. No clubbing. Calves are nontender to palpation. SKIN: No acute rash. NEUROLOGIC: Limited at the present time. IMPRESSION 1. Respiratory failure. 2. Acute congestive heart failure. 3. Advanced chronic obstructive pulmonary disease. 4. Right lower lobe pneumonia. 5. Rule out myocardial infarction. 6. Paroxysmal atrial fibrillation. 7. Renal insufficiency. PLAN: The patient appears very comfortable this morning. She is not short of breath at rest. She is awake and alert. She does state to feeling much, much better overall. I did discuss the case with the night nurse at length. The night nurse stated that the patient had an uneventful night. On physical exam, there is no significant bronchospasm. In addition, there is no significant alveolar-arterial gradient. I will continue with the current nebulizer treatments and oral steroids (changed yesterday) for now. The patient also remains on Revatio - for her pulmonary hypertension. Inputs by Cardiology, Renal, and Infectious Disease are also noted. Clinical status of the patient is significantly improved overall. Again, I did discuss the case with the nurses at length. The patient is not independently ambulatory at this point in time. Thus, perhaps a stay on the Transitional Unit would be beneficial for this patient. I will discuss the above with the attending physician. Bhupinder Chiang MD [facility]
[2018-11-08] MEDS: Insulin Reg-HIGH-Coverage SC SCH ×4 (08:00→22:03)
[2018-11-08] MEDS: Verapamil 120 mg ER Tab PO SCH (10:26)
[2018-11-08] MEDS: Sildenafil 20 MG TAB PO SCH ×2 (10:28→18:22)
[2018-11-08] MEDS: Vitamins A & D Oint UD Foilpak TOP SCH ×2 (10:29→18:20)
[2018-11-08] MEDS: POLYETHYLENE GLYCOL 3350 17 GM/Dose PACKET PO SCH ×2 (10:29→17:07)
[2018-11-08] MEDS: Fluconazole IV 100mg/50 ml NS 50 ML IVPB SCH (10:31)
--- NOTE | 2018-11-08 10:57 | PN ---
DATE: 11/08/2018 REASON FOR CONSULTATION: Coronary artery disease, COPD, history of PTCA, history of CABG, history of atrial fibrillation, pacemaker, admitted with worsening renal insufficiency, respiratory failure, pneumonia, intubated, now successfully extubated, refused p.o. medications, appears to be depressed. OBJECTIVE GENERAL: Not in apparent distress, but appears distressed. Denies any chest pain, shortness of breath or any palpitation. Started eating yesterday, had a breakfast and lunch and dinner as well. VITAL SIGNS: Temperature afebrile, heart rate 60, blood pressure 160/60. HEENT: PERRLA. Extraocular muscles intact. NECK: Supple. No carotid bruits or thyromegaly. CHEST: Clear to auscultation. HEART: S1 and S2 regular. ABDOMEN: Soft. EXTREMITIES: Clubbing, cyanosis negative. LABORATORY DATA: Blood workup as follows; WBC 10.9, hemoglobin 9.1, hematocrit 33.0, platelet count 138. Chemistry shows sodium 153, potassium 4.0, chloride 117, carbon dioxide 73, anion gap of 7, BUN 17, creatinine 2.5. IMPRESSION: A 73-year-old female with past medical history significant for paroxysmal atrial fibrillation, obesity, history of coronary artery disease, history of coronary artery bypass graft in 2013, status post percutaneous transluminal angioplasty in 2014 of right [place] coronary artery as graft to the saphenous vein occluded. Recently admitted with shortness of breath, pneumonia, bilateral, intubated, respiratory failure, appears depressed, stopped taking p.o. Now the patient is agreeable to change to IV medications, now started taking p.o. so yesterday changed to p.o. medications. Discussed with Dr. Antunez and I will discuss with Dr. Schultz. The patient needs psychiatric evaluation, may get benefit from psychiatric evaluation for depression. We will also discuss with the patient's family. Previous status is stable. No invasive cardiac workup is planned at this time. We will follow closely and ask Dr. Schultz for psychiatric evaluation referral. Interim continue Eliquis, continue hydralazine 50 mg p.o. b.i.d., we decreased because of blood pressure was decreasing and gave hydralazine 10 mg p.o., Clonidine, verapamil, Eliquis and metoprolol 50 mg p.o. b.i.d. Consider my include followup renal function, sildenafil also started. Monitor blood pressure closely and monitor renal function. Still the patient is hypernatremic, but is improving, improved from 156 to 153. Increase p.o. as tolerated, liberalize p.o. Sapna Latif MD
--- NOTE | 2018-11-08 14:22 | CP.PCM.PN ---
<Mathew Vigil - Last Filed: 11/08/18 14:20> Subjective - Date & Time of Evaluation Date of Evaluation: 11/08/18 Time of Evaluation: 08:50 - Subjective Subjective: Mathew Vigil D.O. PGY-3, Internal Medicine Resident, Infectious Disease Progress Note 73 year old female admitted to ICU for hypertensive emergency complicated by ventilator dependent hypercapnic respiratory failure in the setting of cardior enal syndrome, hospital course complicated for pseudomonas UTI and pyelonephritis. Infectious disease consultation was requested for pneumonia. Patient was seen and examined at bedside. Clinically unchanged. Still difficulty with PO intake. Objective - Vital Signs/Intake and Output Vital Signs (last 24 hours): Temp Pulse Resp BP Pulse Ox 97.2 F L 60 19 128/77 98 11/08/18 12:00 11/08/18 12:00 11/08/18 12:00 11/08/18 12:00 11/07/18 06:00 Intake and Output: 11/08/18 11/08/18 06:59 18:59 Intake Total 1524 Balance 1524 - Medications Medications: Current Medications Acetaminophen (Tylenol 325mg Tab) 650 mg PO Q6H PRN PRN Reason: Fever >100.4 F Last Admin: 10/21/18 16:47 Dose: 650 mg Albuterol/Ipratropium (Duoneb 3 Mg/0.5 Mg (3 Ml) Ud) 3 ml IH Q2H PRN PRN Reason: Shortness of Breath Last Admin: 10/19/18 10:38 Dose: 3 ml Amiodarone HCl (Cordarone) 200 mg PO DAILY [facility] Last Admin: 11/08/18 10:27 Dose: 200 mg Apixaban (Eliquis) 2.5 mg PO BID [facility]; Protocol Last Admin: 11/08/18 10:25 Dose: 2.5 mg Atorvastatin Calcium (Lipitor) 40 mg PO DAILY [facility] Last Admin: 11/08/18 10:36 Dose: 40 mg Budesonide (Pulmicort Respules) 0.5 mg IH [id number] [facility] Last Admin: 11/08/18 07:39 Dose: 0.5 mg Clonidine HCl (Catapres-Tts3 0.3 Mg/24 Hr) 1 patch TD Q7D@1000 [facility] Last Admin: 11/04/18 15:50 Dose: 1 patch Clotrimazole (Mycelex Nelia) 10 mg MT 5XD [facility] Last Admin: 11/08/18 13:26 Dose: 10 mg Dextrose (Dextrose 50% Inj) 0 ml IV STAT PRN; Protocol PRN Reason: Hypoglycemia Protocol Folic Acid (Folic Acid) 1 mg PO DAILY [facility] Last Admin: 11/08/18 10:28 Dose: 1 mg Hydralazine HCl (Apresoline) 50 mg PO BID [facility] Last Admin: 11/08/18 10:35 Dose: 50 mg Hydralazine HCl (Apresoline) 10 mg IVP Q4 PRN PRN Reason: SBP > 180 Last Admin: 11/08/18 01:13 Dose: 10 mg Dextrose (Dextrose 5% In Water 1000 Ml) 1,000 mls @ 60 mls/hr IV .[id number] [facility] Last Admin: 11/08/18 12:39 Dose: 60 mls/hr Fluconazole (Diflucan Iv 100 Mg/50 Ml Ns) 50 mls @ 100 mls/hr IVPB DAILY [facility]; Protocol Last Admin: 11/08/18 10:31 Dose: 100 mls/hr Insulin Human Regular (Humulin R High) 0 units SC ACHS [facility]; Protocol Last Admin: 11/08/18 12:39 Dose: 4 units Levalbuterol HCl (Xopenex) 1.25 mg IH [id number] [facility] Last Admin: 11/08/18 13:22 Dose: 1.25 mg Metoprolol Tartrate (Lopressor) 50 mg PO BID [facility] Last Admin: 11/08/18 10:29 Dose: 50 mg Montelukast Sodium (Singulair) 10 mg PO HS [facility] Last Admin: 11/07/18 22:07 Dose: 10 mg Ondansetron HCl (Zofran Inj) 4 mg IVP Q6H PRN PRN Reason: Nausea/Vomiting Last Admin: 10/19/18 07:55 Dose: 4 mg Pantoprazole Sodium (Protonix Inj) 40 mg IVP DAILY [facility] Last Admin: 11/08/18 10:27 Dose: 40 mg Polyethylene Glycol (Miralax) 17 gm PO BID [facility] Last Admin: 11/08/18 10:29 Dose: 17 gm Prednisone (Prednisone Tab) 30 mg PO DAILY [facility] Last Admin: 11/08/18 10:27 Dose: 30 mg Pregabalin (Lyrica) 75 mg PO BID [facility] Last Admin: 10/24/18 09:45 Dose: 75 mg Sildenafil Citrate (Revatio) 20 mg PO BID [facility] Last Admin: 11/08/18 10:28 Dose: 20 mg Verapamil HCl (Verapamil Inj) 2.5 mg IVP Q6H PRN PRN Reason: for Heart rate >120 Last Admin: 10/26/18 02:12 Dose: 2.5 mg Verapamil HCl (Calan Sr Tab) 240 mg PO DAILY [facility] Last Admin: 11/08/18 10:26 Dose: 240 mg Vitamin A (Vitamin A & D Oint Ud Foilpak) 1 ea TOP BID [facility] Last Admin: 11/08/18 10:29 Dose: 1 ea - Labs Labs: 11/08/18 06:45 11/08/18 06:45 PT 14.8 SECONDS (9.4-12.5) H 10/23/18 14:00 INR 1.33 10/23/18 14:00 APTT 26.6 Seconds (26.9-38.3) L 10/23/18 14:00 - Constitutional Appears: Non-toxic, Chronically Ill - Head Exam Head Exam: ATRAUMATIC, NC - Eye Exam Eye Exam: EOMI, no icterus - ENT Exam ENT Exam: Mucous Membranes Moist - Neck Exam Neck Exam: Normal Inspection - Cardiovascular Exam Cardiovascular Exam: S1, S2 - GI/Abdominal Exam GI & Abdominal Exam: Soft - Extremities Exam Extremities Exam: absent: Tenderness - Neurological Exam Neurological Exam: Alert, Awake - Skin Skin Exam: Dry, Warm Assessment and Plan - Assessment and Plan (Free Text) Assessment: 73 year old female admitted to ICU for hypertensive emergency complicated by ventilator dependent hypercapnic respiratory failure in the setting of cardiore nal syndrome, hospital course complicated for pseudomonas UTI and pyelonephritis. Infectious disease consultation was requested for pneumonia. Plan: seudomonas UTI and pyelonephritis - resolved HAP - resolved At increased risk for nosocomial infections Has been afebrile with no leukocytosis Monitoring off abx at this time Will follow with you Patient was seen and examined and case to be discussed with attending physician Thank you for the pleasure of participating in the care of this interesting patient <Juan Miguel Malone - Last Filed: 11/08/18 19:22> Objective - Vital Signs/Intake and Output Vital Signs (last 24 hours): Temp Pulse Resp BP Pulse Ox 97.2 F L 86 20 146/54 L 98 11/08/18 17:28 11/08/18 18:18 11/08/18 17:28 11/08/18 18:18 11/07/18 06:00 Intake and Output: 11/08/18 11/09/18 18:59 06:59 Intake Total 440 Balance 440 - Medications Medications: Current Medications Acetaminophen (Tylenol 325mg Tab) 650 mg PO Q6H PRN PRN Reason: Fever >100.4 F Last Admin: 10/21/18 16:47 Dose: 650 mg Albuterol/Ipratropium (Duoneb 3 Mg/0.5 Mg (3 Ml) Ud) 3 ml IH Q2H PRN PRN Reason: Shortness of Breath Last Admin: 10/19/18 10:38 Dose: 3 ml Amiodarone HCl (Cordarone) 200 mg PO DAILY [facility] Last Admin: 11/08/18 10:27 Dose: 200 mg Apixaban (Eliquis) 2.5 mg PO BID [facility]; Protocol Last Admin: 11/08/18 18:17 Dose: 2.5 mg Atorvastatin Calcium (Lipitor) 40 mg PO DAILY [facility] Last Admin: 11/08/18 10:36 Dose: 40 mg Budesonide (Pulmicort Respules) 0.5 mg IH [id number] [facility] Last Admin: 11/08/18 07:39 Dose: 0.5 mg Clonidine HCl (Catapres-Tts3 0.3 Mg/24 Hr) 1 patch TD Q7D@1000 [facility] Last Admin: 11/04/18 15:50 Dose: 1 patch Clotrimazole (Mycelex Nelia) 10 mg MT 5XD [facility] Last Admin: 11/08/18 18:14 Dose: 10 mg Dextrose (Dextrose 50% Inj) 0 ml IV STAT PRN; Protocol PRN Reason: Hypoglycemia Protocol Folic Acid (Folic Acid) 1 mg PO DAILY [facility] Last Admin: 11/08/18 10:28 Dose: 1 mg Hydralazine HCl (Apresoline) 50 mg PO BID [facility] Last Admin: 11/08/18 18:14 Dose: 50 mg Hydralazine HCl (Apresoline) 10 mg IVP Q4 PRN PRN Reason: SBP > 180 Last Admin: 11/08/18 01:13 Dose: 10 mg Fluconazole (Diflucan Iv 100 Mg/50 Ml Ns) 50 mls @ 100 mls/hr IVPB DAILY [facility]; Protocol Last Admin: 11/08/18 10:31 Dose: 100 mls/hr Insulin Human Regular (Humulin R High) 0 units SC ACHS [facility]; Protocol Last Admin: 11/08/18 17:06 Dose: Not Given Levalbuterol HCl (Xopenex) 1.25 mg IH [id number] [facility] Last Admin: 11/08/18 13:22 Dose: 1.25 mg Metoprolol Tartrate (Lopressor) 50 mg PO BID [facility] Last Admin: 11/08/18 18:18 Dose: 50 mg Montelukast Sodium (Singulair) 10 mg PO HS [facility] Last Admin: 11/07/18 22:07 Dose: 10 mg Ondansetron HCl (Zofran Inj) 4 mg IVP Q6H PRN PRN Reason: Nausea/Vomiting Last Admin: 10/19/18 07:55 Dose: 4 mg Pantoprazole Sodium (Protonix Inj) 40 mg IVP DAILY [facility] Last Admin: 11/08/18 10:27 Dose: 40 mg Polyethylene Glycol (Miralax) 17 gm PO BID [facility] Last Admin: 11/08/18 17:07 Dose: Not Given Prednisone (Prednisone Tab) 30 mg PO DAILY [facility] Last Admin: 11/08/18 10:27 Dose: 30 mg Pregabalin (Lyrica) 75 mg PO BID [facility] Last Admin: 10/24/18 09:45 Dose: 75 mg Sildenafil Citrate (Revatio) 20 mg PO BID [facility] Last Admin: 11/08/18 18:22 Dose: 20 mg Verapamil HCl (Verapamil Inj) 2.5 mg IVP Q6H PRN PRN Reason: for Heart rate >120 Last Admin: 10/26/18 02:12 Dose: 2.5 mg Verapamil HCl (Calan Sr Tab) 240 mg PO DAILY [facility] Last Admin: 11/08/18 10:26 Dose: 240 mg Vitamin A (Vitamin A & D Oint Ud Foilpak) 1 ea TOP BID [facility] Last Admin: 11/08/18 18:20 Dose: 1 ea - Labs Labs: 11/08/18 06:45 11/08/18 06:45 PT 14.8 SECONDS (9.4-12.5) H 10/23/18 14:00 INR 1.33 10/23/18 14:00 APTT 26.6 Seconds (26.9-38.3) L 10/23/18 14:00 Attending/Attestation - Attestation I have personally seen and examined this patient.: Yes I have fully participated in the care of the patient.: Yes I have reviewed all pertinent clinical information, including history, physical exam and plan: Yes
--- NOTE | 2018-11-08 14:58 | PN ---
DATE: 11/08/2018 SUBJECTIVE: The patient is 73-year-old, seen and examined, sitting in chair, seems to be much more alert today. According to daughter, she ate a little bit better, sipping the water and anxiously wants to go home. She states she feel a lot better when she goes home. PHYSICAL EXAMINATION: VITAL SIGNS: She is afebrile, pulse 60, respiration 20, and blood pressure 172/66. LUNGS: Bilateral diffusely decreased breath sounds. HEART: S1 and S2 audible. ABDOMEN: Soft, obese, and nontender. No rebound. No guarding. NEUROLOGIC: The patient is awake and alert; able to communicate. LABORATORY DATA: WBC 10.9, hemoglobin 9.5, hematocrit 33, and platelet 138. Chemistry; sodium 153, potassium 4.1, chloride 117, CO2 of 33, BUN 76, creatinine 2.5, and blood sugar of 306. ASSESSMENT: 1. Chronic obstructive pulmonary disease exacerbation. 2. Congestive heart failure. 3. Acute and chronic kidney failure. 4. Insulin-dependent diabetes. 5. Hypernatremia. 6. Anemia. PLAN: I spoke to the patient. She promised she is going to be eating and drinking more. We will encourage ambulation. Monitor electrolyte. Monitor CBC. We will follow up the patient in a.m. Laurel Schultz MD
--- NOTE | 2018-11-08 20:33 | PN ---
DATE: 11/08/2018 SUBJECTIVE: The patient is seen sitting in a chair. She is awake, she is alert. She is comfortable. She reports that she is drinking more water.. She wants to go home. PHYSICAL EXAMINATION: GENERAL: Elderly lady sitting in chair. VITAL SIGNS: Blood pressure 128/77, heart rate 60, respiratory rate 18, temperature 97.2. HEENT: Normocephalic, atraumatic, positive pallor. NECK: Supple, no JVD. LUNGS: Bilateral equal air entry, bilateral equal expansion, no rales. CARDIAC: S1, S2, regular rate and rhythm, no murmur, no rub. ABDOMEN: Obese, distended, soft, nontender, bowel sounds present. EXTREMITIES: No lower extremity edema. LABORATORY DATA: WBC 10.9, hemoglobin 9.5, hematocrit 33, platelets 138. Sodium 153, potassium 4.1, chloride 117, CO2 of 33, BUN 76, creatinine 2.5, glucose 306. INTAKE/OUTPUT: 2354/not charted. CURRENT MEDICATIONS: Apresoline 50 b.i.d., verapamil 240 b.i.d., Catapres 0.3 patch, Cordarone 200 daily, fluconazole 50 IV daily, DuoNeb, Eliquis 2.5 b.i.d., folic acid, insulin, Lipitor 40, Lopressor 50 b.i.d., Lyrica on hold, MiraLax, Mycelex, prednisone 30 daily, Protonix 40 IV daily, Revatio 20 b.i.d., Singulair, Tylenol, Xopenex. ASSESSMENT: 1. Acute kidney injury, slowly resolving. 2. Chronic kidney disease stage IV. 3. Hypernatremia, slowly improving. 4. Hyperkalemia, resolved. 5. [id number]-[id number] diabetes mellitus. 6. Severe chronic obstructive pulmonary disease, right heart failure, pulmonary hypertension. 7. Coronary artery disease, coronary artery bypass graft. 8. Anemia of chronic disease. 9. Anxiety. PLAN: 1. Discontinue IV fluids. 2. Push p.o. fluids. 3. Continue to monitor fingersticks and continue insulin coverage. 4. Avoid nephrotoxins. 5. Close outpatient followup will be required. Doris Antunez MD [facility] # [id number]
[2018-11-09] MEDS: Levalbuterol 1.25 MG/3 ML Inhal Soln UD IH SCH ×4 (02:56→19:22)
[2018-11-09] MEDS: Pantoprazole 40 mg EC Tab PO SCH (05:24)
[2018-11-09] MEDS: Budesonide 0.5 mg/2 ml Inhal Susp UD IH SCH ×2 (07:32→19:22)
--- NOTE | 2018-11-09 07:36 | CP.PCM.PN ---
Subjective - Date & Time of Evaluation Date of Evaluation: 11/09/18 Time of Evaluation: 06:25 - Subjective Subjective: Lying in bed, Awake, alert, no distress, feels okay Reason for consultation and follow up: Cardiac evaluation of shortness of breath , respiratory failure, intubated and successfully extubated, pneumonia, history of coronary artery disease, history of CABG, PTCA, history of atrial fibrillation, worsening renal insufficiency Seen and examined by me and Dr. Latif Objective - Vital Signs/Intake and Output Vital Signs (last 24 hours): Temp Pulse Resp BP Pulse Ox 98.0 F 60 19 142/62 98 11/09/18 06:00 11/09/18 06:00 11/09/18 06:00 11/09/18 06:00 11/07/18 06:00 Intake and Output: 11/09/18 11/09/18 06:59 18:59 Intake Total 860 Output Total 302 Balance 558 - Medications Medications: Current Medications Acetaminophen (Tylenol 325mg Tab) 650 mg PO Q6H PRN PRN Reason: Fever >100.4 F Last Admin: 10/21/18 16:47 Dose: 650 mg Albuterol/Ipratropium (Duoneb 3 Mg/0.5 Mg (3 Ml) Ud) 3 ml IH Q2H PRN PRN Reason: Shortness of Breath Last Admin: 10/19/18 10:38 Dose: 3 ml Amiodarone HCl (Cordarone) 200 mg PO DAILY [facility] Last Admin: 11/08/18 10:27 Dose: 200 mg Apixaban (Eliquis) 2.5 mg PO BID [facility]; Protocol Last Admin: 11/08/18 18:17 Dose: 2.5 mg Atorvastatin Calcium (Lipitor) 40 mg PO DAILY [facility] Last Admin: 11/08/18 10:36 Dose: 40 mg Budesonide (Pulmicort Respules) 0.5 mg IH [id number] [facility] Last Admin: 11/09/18 07:32 Dose: 0.5 mg Clonidine HCl (Catapres-Tts3 0.3 Mg/24 Hr) 1 patch TD Q7D@1000 [facility] Last Admin: 11/04/18 15:50 Dose: 1 patch Clotrimazole (Mycelex Nelia) 10 mg MT 5XD [facility] Last Admin: 11/09/18 05:24 Dose: 10 mg Dextrose (Dextrose 50% Inj) 0 ml IV STAT PRN; Protocol PRN Reason: Hypoglycemia Protocol Folic Acid (Folic Acid) 1 mg PO DAILY [facility] Last Admin: 11/08/18 10:28 Dose: 1 mg Hydralazine HCl (Apresoline) 50 mg PO BID [facility] Last Admin: 11/08/18 18:14 Dose: 50 mg Hydralazine HCl (Apresoline) 10 mg IVP Q4 PRN PRN Reason: SBP > 180 Last Admin: 11/08/18 01:13 Dose: 10 mg Fluconazole (Diflucan Iv 100 Mg/50 Ml Ns) 50 mls @ 100 mls/hr IVPB DAILY [facility]; Protocol Last Admin: 11/08/18 10:31 Dose: 100 mls/hr Insulin Human Regular (Humulin R High) 0 units SC ACHS [facility]; Protocol Last Admin: 11/08/18 22:03 Dose: Not Given Levalbuterol HCl (Xopenex) 1.25 mg IH [id number] [facility] Last Admin: 11/09/18 07:32 Dose: 1.25 mg Metoprolol Tartrate (Lopressor) 50 mg PO BID [facility] Last Admin: 11/08/18 18:18 Dose: 50 mg Montelukast Sodium (Singulair) 10 mg PO HS [facility] Last Admin: 11/08/18 21:16 Dose: 10 mg Ondansetron HCl (Zofran Inj) 4 mg IVP Q6H PRN PRN Reason: Nausea/Vomiting Last Admin: 10/19/18 07:55 Dose: 4 mg Pantoprazole Sodium (Protonix Ec Tab) 40 mg PO 0600 [facility] Last Admin: 11/09/18 05:24 Dose: 40 mg Polyethylene Glycol (Miralax) 17 gm PO BID [facility] Last Admin: 11/08/18 17:07 Dose: Not Given Prednisone (Prednisone Tab) 30 mg PO DAILY [facility] Last Admin: 11/08/18 10:27 Dose: 30 mg Pregabalin (Lyrica) 75 mg PO BID [facility] Last Admin: 10/24/18 09:45 Dose: 75 mg Sildenafil Citrate (Revatio) 20 mg PO BID [facility] Last Admin: 11/08/18 18:22 Dose: 20 mg Verapamil HCl (Verapamil Inj) 2.5 mg IVP Q6H PRN PRN Reason: for Heart rate >120 Last Admin: 10/26/18 02:12 Dose: 2.5 mg Verapamil HCl (Calan Sr Tab) 240 mg PO DAILY [facility] Last Admin: 11/08/18 10:26 Dose: 240 mg Vitamin A (Vitamin A & D Oint Ud Foilpak) 1 ea TOP BID [facility] Last Admin: 11/08/18 18:20 Dose: 1 ea - Labs Labs: 11/08/18 06:45 11/08/18 06:45 PT 14.8 SECONDS (9.4-12.5) H 10/23/18 14:00 INR 1.33 10/23/18 14:00 APTT 26.6 Seconds (26.9-38.3) L 10/23/18 14:00 - Constitutional Appears: Non-toxic, No Acute Distress - Head Exam Head Exam: NORMAL INSPECTION, NORMOCEPHALIC - Eye Exam Eye Exam: Normal appearance Pupil Exam: NORMAL ACCOMODATION - ENT Exam ENT Exam: Mucous Membranes Moist, Normal Exam - Respiratory Exam Respiratory Exam: Decreased Breath Sounds, Clear to Ausculation Bilateral, NORMAL BREATHING PATTERN - Cardiovascular Exam Cardiovascular Exam: +S1, +S2 Additional comments: V pacing PPM - GI/Abdominal Exam GI & Abdominal Exam: Soft, Normal Bowel Sounds - Neurological Exam Neurological Exam: Alert, Awake, Oriented x3 - Psychiatric Exam Psychiatric exam: Normal Affect, Normal Mood - Skin Skin Exam: Dry, Normal Color, Warm Assessment and Plan - Assessment and Plan (Free Text) Assessment: A 73 year old female who came in to the ER due to shortness of breath requiring intubation and admitted to ICU. Successfully extubated and now transferred to telemetry. History of history of coronary artery disease, history of CABG in 2013, PTCA in 2014, history of atrial fibrillation, sisck sinus syndrome requiring PPM, history of pulmonary hypertension on Revatio. Recent Echo on 10/19/18 showed LVEF 55-60%, moderately reduced RV systolic function, trace AR/MR, mild Tr , RVSP 55 mmHg, moderate pulmonary hypertension. Starts to take oral intake. Seem depressed. May benefit from psych evaluation. Cardiac status stable. Clinically improved. Physical therapy. Sodium level treading down. Plan: Feels okay No distress, denies shortness of breath Heart rate controlled Blood pressure controlled Cardiac status stable Clinically improving On Amiodarone 200 mg daily,Eliquis 2.5 mg BID, Lipitor 40 mg daily, Catapres 0.3 mg patch daily, Hydralazine 50 mg BID, lopressor 50 mg BID, Revatio 20 mg BID, Verapamil 240 mg daily Continue current treatment Continue current medications Psych evaluation Physical therapy Discharge planning Will follow up Seen and examined by me and Dr. Latif
[2018-11-09 08:09] LABS: HEMOGLOBIN 9.8 g/dL (12.0-16.0); MEAN CELL VOLUME 93.9 fl (80.0-105.0); MEAN CORPUSCULAR HEMOGLOBIN 27.1 pg (25.0-35.0); MEAN CORPUSCULAR HGB CONC 28.8 g/dl (31.0-37.0); PLATELET COUNT 115 10^3/uL (120.0-450.0); RBC 3.62 10^6/uL (3.5-6.1); RED CELL DISTRIBUTION WIDTH 16.4 % (11.5-14.5); WHITE BLOOD COUNT 10.4 10^3/uL (4.5-11.0)
[2018-11-09] MEDS: Insulin Reg-HIGH-Coverage SC SCH ×4 (08:44→21:51)
[2018-11-09 09:05] LABS: ALB/GLOB RATIO 0.9 (1.1-1.8); ALBUMIN 2.8 g/dL (3.0-4.8); CALCIUM 9.1 mg/dL (8.4-10.5)
[2018-11-09] MEDS: POLYETHYLENE GLYCOL 3350 17 GM/Dose PACKET PO SCH ×2 (09:58→17:11)
[2018-11-09] MEDS: Vitamins A & D Oint UD Foilpak TOP SCH ×2 (09:58→17:11)
[2018-11-09] MEDS: Verapamil 120 mg ER Tab PO SCH (09:59)
[2018-11-09] MEDS: Sildenafil 20 MG TAB PO SCH ×2 (10:01→17:11)
[2018-11-09] MEDS: Fluconazole IV 100mg/50 ml NS 50 ML IVPB SCH (10:01)
--- NOTE | 2018-11-09 13:31 | PN ---
DATE: 11/09/2018 SUBJECTIVE: The patient is seen and examined at bedside. She is currently receiving inhalation treatment with DuoNeb and she is on oral prednisone. She is also receiving budesonide as an inhalant steroid and she is on sildenafil for pulmonary hypertension as well as montelukast for allergic rhinitis and asthma. PHYSICAL EXAMINATION: GENERAL: She is awake, alert, in no acute distress. VITAL SIGNS: Temperature is 98, pulse 60, respirations 20, on nasal cannula, and blood pressure is 140/60. HEAD: Normocephalic and atraumatic. NECK: Supple with no jugular vein distention. CARDIOVASCULAR: S1 and S2. No S3. Regular. PULMONARY: Diminished breath sounds at both long bases with few rhonchi. No wheezing. GASTROINTESTINAL: Soft, nontender. There is no organomegaly. EXTREMITIES: Mild edema. No cyanosis. SKIN: No acute skin rash. NEUROLOGIC: Limited at the present time. LABORATORY DATA: Reviewed today. Her sodium is elevated at 152, chloride elevated at 115, potassium is normal at 4.2, her creatinine is elevated at 2.6. WBC is 10.4 and hemoglobin of 9.8. ASSESSMENT: 1. Respiratory failure, acute on chronic. 2. Congestive heart failure. 3. Advanced chronic obstructive pulmonary disease. 4. Right lower lobe pneumonia, clinically improving. 5. Pulmonary hypertension. 6. Renal insufficiency. PLAN: The patient remains very ill with multiple comorbidities; however, her shortness of breath has improved slightly. She is benefiting from BiPAP at night. Her laboratory data which was reviewed reveals mild anemia, normal white count, moderate renal insufficiency. All those issues are being addressed by primary and consultants. We will continue with nebulizer treatment and diminished steroids. Max Olivier MD
--- NOTE | 2018-11-09 23:28 | PN ---
DATE: 11/09/2018 SUBJECTIVE: The patient is in bed in no acute distress, nontoxic. OBJECTIVE: VITAL SIGNS: On exam, temperature is 98, blood pressure is 120/60, respiratory rate of 18. HEENT: Unremarkable. NECK: Supple. LUNGS: Have decreased breath sounds. HEART: Normal S1, S2. ABDOMEN: Soft. LABORATORY EXAMINATION: Reveals a white count of 10,000, hemoglobin of 9, BUN of 79, creatinine of 2.6. Microbiology reveals the cultures are negative. The repeat urine cultures were negative. Review of orders reveals the patient to be on prednisone and off of antibiotics. ASSESSMENT AND PLAN: This is a 73-year-old female who was initially admitted to intensive care unit with hypertensive emergency, complicated by ventilator-dependent hypercapnic respiratory failure and cardiorenal syndrome, complicated. The patient initially admitted with Pseudomonas urinary tract infection with pyelonephritis with Pseudomonas pyelonephritis and completed the antibiotic therapy and had developed healthcare-associated pneumonia, which also resolved and currently off of antibiotics, afebrile. We will follow with you. Juan Miguel Malone MD
[2018-11-10] MEDS: Levalbuterol 1.25 MG/3 ML Inhal Soln UD IH SCH ×4 (01:39→19:40)
[2018-11-10] MEDS: Pantoprazole 40 mg EC Tab PO SCH (06:29)
--- NOTE | 2018-11-10 06:54 | CP.PCM.PN ---
Subjective - Date & Time of Evaluation Date of Evaluation: 11/10/18 Time of Evaluation: 06:20 - Subjective Subjective: Lying in bed, Awake, alert, no distress, watching TV Reason for consultation and follow up: Cardiac evaluation of shortness of breath , respiratory failure, intubated and successfully extubated, pneumonia, history of coronary artery disease, history of CABG, PTCA, history of atrial fibrillation, worsening renal insufficiency Seen and examined by me and Dr. Latif Objective - Vital Signs/Intake and Output Vital Signs (last 24 hours): Temp Pulse Resp BP Pulse Ox 97.6 F 18 L 59 H 151/63 H 99 11/09/18 22:49 11/10/18 01:40 11/09/18 22:49 11/09/18 22:49 11/09/18 22:49 Intake and Output: 11/09/18 11/10/18 18:59 06:59 Intake Total 50 Balance 50 - Medications Medications: Current Medications Acetaminophen (Tylenol 325mg Tab) 650 mg PO Q6H PRN PRN Reason: Fever >100.4 F Last Admin: 10/21/18 16:47 Dose: 650 mg Albuterol/Ipratropium (Duoneb 3 Mg/0.5 Mg (3 Ml) Ud) 3 ml IH Q2H PRN PRN Reason: Shortness of Breath Last Admin: 10/19/18 10:38 Dose: 3 ml Amiodarone HCl (Cordarone) 200 mg PO DAILY [facility] Last Admin: 11/09/18 10:01 Dose: 200 mg Apixaban (Eliquis) 2.5 mg PO BID [facility]; Protocol Last Admin: 11/09/18 17:10 Dose: 2.5 mg Atorvastatin Calcium (Lipitor) 40 mg PO DAILY [facility] Last Admin: 11/09/18 09:59 Dose: 40 mg Budesonide (Pulmicort Respules) 0.5 mg IH [id number] [facility] Last Admin: 11/09/18 19:22 Dose: 0.5 mg Clonidine HCl (Catapres-Tts3 0.3 Mg/24 Hr) 1 patch TD Q7D@1000 [facility] Last Admin: 11/04/18 15:50 Dose: 1 patch Clotrimazole (Mycelex Nelia) 10 mg MT 5XD [facility] Last Admin: 11/09/18 17:10 Dose: 10 mg Clotrimazole (Mycelex Nelia) 10 mg MT 5XD [facility] Last Admin: 11/09/18 21:41 Dose: 10 mg Dextrose (Dextrose 50% Inj) 0 ml IV STAT PRN; Protocol PRN Reason: Hypoglycemia Protocol Folic Acid (Folic Acid) 1 mg PO DAILY [facility] Last Admin: 11/09/18 09:59 Dose: 1 mg Hydralazine HCl (Apresoline) 50 mg PO BID [facility] Last Admin: 11/09/18 17:10 Dose: 50 mg Hydralazine HCl (Apresoline) 10 mg IVP Q4 PRN PRN Reason: SBP > 180 Last Admin: 11/08/18 01:13 Dose: 10 mg Insulin Human Regular (Humulin R High) 0 units SC [facility]; Protocol Last Admin: 11/09/18 21:51 Dose: Not Given Levalbuterol HCl (Xopenex) 1.25 mg IH [id number] [facility] Last Admin: 11/10/18 01:39 Dose: 1.25 mg Metoprolol Tartrate (Lopressor) 50 mg PO BID [facility] Last Admin: 11/09/18 17:10 Dose: 50 mg Montelukast Sodium (Singulair) 10 mg PO HS [facility] Last Admin: 11/09/18 21:41 Dose: 10 mg Ondansetron HCl (Zofran Inj) 4 mg IVP Q6H PRN PRN Reason: Nausea/Vomiting Last Admin: 10/19/18 07:55 Dose: 4 mg Pantoprazole Sodium (Protonix Ec Tab) 40 mg PO 0600 [facility] Last Admin: 11/10/18 06:29 Dose: 40 mg Prednisone (Prednisone Tab) 30 mg PO DAILY [facility] Last Admin: 11/09/18 09:59 Dose: 30 mg Pregabalin (Lyrica) 75 mg PO BID [facility] Last Admin: 10/24/18 09:45 Dose: 75 mg Sildenafil Citrate (Revatio) 20 mg PO BID [facility] Last Admin: 11/09/18 17:11 Dose: 20 mg Verapamil HCl (Verapamil Inj) 2.5 mg IVP Q6H PRN PRN Reason: for Heart rate >120 Last Admin: 10/26/18 02:12 Dose: 2.5 mg Verapamil HCl (Calan Sr Tab) 240 mg PO DAILY [facility] Last Admin: 11/09/18 09:59 Dose: 240 mg Vitamin A (Vitamin A & D Oint Ud Foilpak) 1 ea TOP BID [facility] Last Admin: 11/09/18 17:11 Dose: 1 ea - Labs Labs: 11/09/18 07:00 11/09/18 07:00 PT 14.8 SECONDS (9.4-12.5) H 10/23/18 14:00 INR 1.33 10/23/18 14:00 APTT 26.6 Seconds (26.9-38.3) L 10/23/18 14:00 - Constitutional Appears: Non-toxic, No Acute Distress - Head Exam Head Exam: NORMAL INSPECTION, NORMOCEPHALIC - Eye Exam Eye Exam: Normal appearance Pupil Exam: NORMAL ACCOMODATION - ENT Exam ENT Exam: Mucous Membranes Moist, Normal Exam - Respiratory Exam Respiratory Exam: Decreased Breath Sounds, Clear to Ausculation Bilateral, NORMAL BREATHING PATTERN - Cardiovascular Exam Cardiovascular Exam: +S1, +S2 - GI/Abdominal Exam GI & Abdominal Exam: Soft, Normal Bowel Sounds - Neurological Exam Neurological Exam: Alert, Awake, Oriented x3 - Psychiatric Exam Psychiatric exam: Normal Affect, Normal Mood - Skin Skin Exam: Dry, Normal Color, Warm Assessment and Plan - Assessment and Plan (Free Text) Assessment: A 73 year old female who came in to the ER due to shortness of breath requiring intubation and admitted to ICU. Successfully extubated and now transferred to telemetry. History of history of coronary artery disease, history of CABG in 2013, PTCA in 2014, history of atrial fibrillation, sick sinus syndrome requiring PPM, history of pulmonary hypertension on Revatio. Recent Echo on 10/19/18 showed LVEF 55-60%, moderately reduced RV systolic function, trace AR/MR, mild TR , RVSP 55 mmHg, moderate pulmonary hypertension. Admitted for respiratory failure, pneumonia, worsening renal insufficency, pneumonia. Cardiac status stable. Clinically improved. Improved oral intake. Physical therapy. Discharge planning. Plan: Wanted to go home No distress, denies shortness of breath Heart rate controlled Blood pressure controlled Cardiac status stable On Amiodarone 200 mg daily,Eliquis 2.5 mg BID, Lipitor 40 mg daily, Catapres 0.3 mg patch daily, Hydralazine 50 mg BID, lopressor 50 mg BID, Revatio 20 mg BID, Verapamil 240 mg daily Continue current treatment Continue current medications Improved oral intake Psych evaluation Physical therapy Discharge planning Will follow up Seen and examined by me and Dr. Latif
[2018-11-10] MEDS: Budesonide 0.5 mg/2 ml Inhal Susp UD IH SCH ×2 (07:13→19:40)
[2018-11-10 07:41] LABS: HEMOGLOBIN 9.7 g/dL (12.0-16.0); MEAN CELL VOLUME 92.8 fl (80.0-105.0); MEAN CORPUSCULAR HEMOGLOBIN 26.9 pg (25.0-35.0); PLATELET COUNT 109 10^3/uL (120.0-450.0); RBC 3.61 10^6/uL (3.5-6.1); RED CELL DISTRIBUTION WIDTH 16.4 % (11.5-14.5); WHITE BLOOD COUNT 8.6 10^3/uL (4.5-11.0)
[2018-11-10 07:59] LABS: ALBUMIN 3.1 g/dL (3.0-4.8); CALCIUM 9.5 mg/dL (8.4-10.5)
[2018-11-10] MEDS: Insulin Reg-HIGH-Coverage SC SCH ×4 (08:00→21:42)
[2018-11-10] MEDS: Verapamil 120 mg ER Tab PO SCH (09:55)
[2018-11-10] MEDS: Vitamins A & D Oint UD Foilpak TOP SCH (09:59)
[2018-11-10] MEDS: Sildenafil 20 MG TAB PO SCH ×2 (09:59→18:36)
--- NOTE | 2018-11-10 11:32 | PN ---
DATE: 11/10/2018 SUBJECTIVE: The patient is in bed, in no acute distress, nontoxic. PHYSICAL EXAMINATION: VITAL SIGNS: Temperature is 97, blood pressure is 170/60, respiratory rate of 20. HEENT: Unremarkable. NECK: Supple. LUNGS: Have decreased breath sounds. HEART: Normal S1, S2. ABDOMEN: Soft, nontender. LABORATORY DATA: Laboratory examination reveals the patient has a white count of 8.6 and chemistries are noted and creatinine is 2.5. Review of orders reveals the patient is off of antibiotics. ASSESSMENT AND PLAN: This is a 73-year-old female, admitted to the intensive care unit with hypertensive emergency complicated by ventilator-dependent hypercapnic respiratory failure and cardiorenal failure complicated initially with Pseudomonas urinary tract infection and Pseudomonas pyelonephritis, was treated with 14 days of antibiotics and the patient developed healthcare-associated pneumonia which is also resolved, currently off of antibiotics, afebrile. The patient is at risk for developing nosocomial infections. Juan Miguel Malone MD
--- NOTE | 2018-11-10 12:42 | PN ---
DATE: 11/10/2018 PULMONARY PROGRESS NOTE SUBJECTIVE: The patient was seen and examined at bedside. She is receiving inhalation therapy with budesonide and levalbuterol. She has also moderate dose of prednisone 30 mg daily. PHYSICAL EXAMINATION: VITAL SIGNS: Her temperature is 98.4, pulse 62, respirations 20, pulse oximetry is 96 on nasal cannula and blood pressure is 170/62. HEENT: Head normocephalic and atraumatic. NECK: Supple with no jugular vein distention. CARDIOVASCULAR: S1, S2, no S3, regular. PULMONARY: Diminished breath sounds at both lung bases with few rhonchi and no wheezing. GASTROINTESTINAL: Soft and nontender. No organomegaly. EXTREMITIES: 1+ pedal edema. No cyanosis. SKIN: No acute skin rash. NEUROLOGIC: Limited at present time. ADDITIONAL DATA: Reviewed. Her serum sodium is 153 elevated, chloride elevated at 116, BUN is markedly elevated at 80 and creatinine is 2.5. Blood sugar is 175. WBC is 8.6, hemoglobin of 9.7. ASSESSMENT: 1. Respiratory failure, acute on chronic. 2. Congestive heart failure. 3. Advanced chronic obstructive pulmonary disease. 4. Right lower lobe pneumonia, clinically resolving. 5. Pulmonary hypertension. 6. Renal insufficiency. PLAN: The patient's condition remains guarded, but stable. She is going on BiPAP at night. Her breath sounds are slightly improved at both lung bases. We will continue inhalation therapy with levalbuterol and budesonide. She is also on sildenafil for pulmonary hypertension. However, I suspect that most of the pulmonary hypertension is secondary. Steroids can be reduced. We will follow closely. Max Olivier MD
--- NOTE | 2018-11-10 13:32 | PN ---
DATE: 11/10/2018 SUBJECTIVE: The patient is seen sitting in bed. She is awake. She alert. She is comfortable. She reports feeling better. PHYSICAL EXAMINATION GENERAL: Elderly lady sitting in bed. VITAL SIGNS: Blood pressure 168/72, heart rate 62, respiratory rate 20 and temperature 97.3. HEENT: Normocephalic, atraumatic, positive pallor. NECK: Supple, no JVD. LUNGS: Bilateral equal entry, bilateral equal expansion, no rales. CARDIAC: S1 and S2, regular rate and rhythm, no murmur, no rub. ABDOMEN: Obese, distended, soft, nontender, bowel sounds present. EXTREMITIES: No lower extremity edema. LABORATORY DATA: WBC 8.6, hemoglobin 9.7, hematocrit 34, and platelets 109. Sodium 153, potassium 3.8, chloride 116, CO2 of 35, BUN 80, creatinine 2.5, glucose 175 and calcium 9.5. CURRENT MEDICATIONS: Apresoline 50 b.i.d., verapamil 240, Catapres 0.3 patch, Cordarone 200, Eliquis 2.5 b.i.d., folic acid, insulin, Lipitor 40, Lopressor 50 b.i.d., Lyrica on hold, Mycelex, prednisone 30, Revatio 20 b.i.d. and Singulair 10. ASSESSMENT: 1. Resolved acute kidney injury, stable chronic kidney disease stage IV, mild prerenal azotemia. 2. Hypernatremia. 3. Hyperkalemia, resolved. 4. Chronic obstructive pulmonary disease/right heart failure/pulmonary hypertension. 5. Coronary artery disease, history of coronary artery bypass graft. 6. Non insulin-dependent diabetes mellitus. 7. ?Depression. PLAN: 1. Push p.o. fluids. 2. Avoid nephrotoxins. 3. Continue current antihypertensives. 4. Discharge planning. Doris Antunez MD
--- NOTE | 2018-11-10 19:14 | PN ---
DATE: 11/10/2018 SUBJECTIVE: The patient is 73 years old, seen and examined. Looks much more awake and alert, ate a little better. Has mild shortness of breath even at rest. PHYSICAL EXAMINATION: VITAL SIGNS: She is afebrile, pulse 62, respirations 20, blood pressure 117/68. LUNGS: Bilateral fair air flow. No rhonchi or crackle. HEART: S1 and S2 audible. ABDOMEN: Soft, nontender, no rebound, no guarding. NEUROLOGIC: The patient is awake and alert; has generalized weakness. LABORATORY DATA: WBC 8.6, hemoglobin 9.7, hematocrit 33.5, platelets 409. Chemistry: Sodium 153, potassium 3.8, chloride 116, CO2 of 35. BUN 80, creatinine 2.5, and blood sugar of 259. ASSESSMENT: 1. Status post bilateral pneumonia, improving. 2. Congestive heart failure. 3. Chronic obstructive pulmonary disease. 4. Pulmonary hypertension. 5. Pseudomonas urinary tract infection. 6. Oral thrush. 7. Acute on chronic renal failure. 8. Insulin dependent diabetes. 9. Chronic atrial fibrillation. PLAN: Currently the patient is on Catapres patch. She is on amiodarone, she is on Eliquis. She has finished her course of antibiotics. Will cut down her steroids to 20 mg daily and will reevaluate in the morning and make disposition plan. The patient's family does not want to take her to subacute rehab. The state they would rather have physical therapy at home. Follow up her CBC and CMP in the morning. Laurel Schultz MD
[2018-11-11] MEDS: Levalbuterol 1.25 MG/3 ML Inhal Soln UD IH SCH ×4 (01:13→19:53)
[2018-11-11] MEDS: Pantoprazole 40 mg EC Tab PO SCH (06:21)
[2018-11-11 07:17] LABS: EOS # 0.1 (0.0-0.7); EOS % 1.3 % (1.5-5.0); HEMOGLOBIN 9.8 g/dL (12.0-16.0); LYMPH # 0.3 (1.2-3.4); LYMPH % 3.6 % (22.0-35.0); MEAN CELL VOLUME 91.6 fl (80.0-105.0); MEAN CORPUSCULAR HEMOGLOBIN 26.6 pg (25.0-35.0); MEAN CORPUSCULAR HGB CONC 29.1 g/dl (31.0-37.0); MONO # 0.4 (0.1-0.6); PLATELET COUNT 109 10^3/uL (120.0-450.0); RBC 3.68 10^6/uL (3.5-6.1); RED CELL DISTRIBUTION WIDTH 16.6 % (11.5-14.5); WHITE BLOOD COUNT 7.5 10^3/uL (4.5-11.0)
[2018-11-11] MEDS: Budesonide 0.5 mg/2 ml Inhal Susp UD IH SCH ×2 (07:34→19:53)
--- NOTE | 2018-11-11 07:36 | CP.PCM.PN ---
Subjective - Date & Time of Evaluation Date of Evaluation: 11/11/18 Time of Evaluation: 06:40 - Subjective Subjective: Awake, alert, no distress Reason for consultation and follow up: Cardiac evaluation of shortness of breath , respiratory failure, intubated and successfully extubated, pneumonia, history of coronary artery disease, history of CABG, PTCA, history of atrial fibrillation, worsening renal insufficiency Seen and examined by me and Dr. Latif Objective - Vital Signs/Intake and Output Vital Signs (last 24 hours): Temp Pulse Resp BP Pulse Ox 97.5 F L 60 20 160/55 H 93 L 11/11/18 06:00 11/11/18 06:00 11/11/18 06:00 11/11/18 06:00 11/11/18 06:00 Intake and Output: 11/11/18 11/11/18 06:59 18:59 Intake Total 480 Balance 480 - Medications Medications: Current Medications Acetaminophen (Tylenol 325mg Tab) 650 mg PO Q6H PRN PRN Reason: Fever >100.4 F Last Admin: 11/10/18 13:19 Dose: 650 mg Albuterol/Ipratropium (Duoneb 3 Mg/0.5 Mg (3 Ml) Ud) 3 ml IH Q2H PRN PRN Reason: Shortness of Breath Last Admin: 10/19/18 10:38 Dose: 3 ml Amiodarone HCl (Cordarone) 200 mg PO DAILY [facility] Last Admin: 11/10/18 09:55 Dose: 200 mg Apixaban (Eliquis) 2.5 mg PO BID [facility]; Protocol Last Admin: 11/10/18 18:34 Dose: 2.5 mg Atorvastatin Calcium (Lipitor) 40 mg PO DAILY [facility] Last Admin: 11/10/18 09:56 Dose: 40 mg Budesonide (Pulmicort Respules) 0.5 mg IH [id number] [facility] Last Admin: 11/10/18 19:40 Dose: 0.5 mg Clonidine HCl (Catapres-Tts3 0.3 Mg/24 Hr) 1 patch TD Q7D@1000 [facility] Last Admin: 11/04/18 15:50 Dose: 1 patch Clotrimazole (Mycelex Nelia) 10 mg MT 5XD [facility] Last Admin: 11/10/18 18:36 Dose: Not Given Clotrimazole (Mycelex Nelia) 10 mg MT 5XD [facility] Last Admin: 11/10/18 21:43 Dose: 10 mg Dextrose (Dextrose 50% Inj) 0 ml IV STAT PRN; Protocol PRN Reason: Hypoglycemia Protocol Folic Acid (Folic Acid) 1 mg PO DAILY [facility] Last Admin: 11/10/18 09:57 Dose: 1 mg Hydralazine HCl (Apresoline) 50 mg PO BID [facility] Last Admin: 11/10/18 18:40 Dose: 50 mg Hydralazine HCl (Apresoline) 10 mg IVP Q4 PRN PRN Reason: SBP > 180 Last Admin: 11/08/18 01:13 Dose: 10 mg Insulin Human Regular (Humulin R High) 0 units SC [facility]; Protocol Last Admin: 11/10/18 21:42 Dose: Not Given Levalbuterol HCl (Xopenex) 1.25 mg IH [id number] [facility] Last Admin: 11/11/18 01:13 Dose: 1.25 mg Metoprolol Tartrate (Lopressor) 50 mg PO BID [facility] Last Admin: 11/10/18 18:35 Dose: 50 mg Montelukast Sodium (Singulair) 10 mg PO HS [facility] Last Admin: 11/10/18 21:43 Dose: 10 mg Ondansetron HCl (Zofran Inj) 4 mg IVP Q6H PRN PRN Reason: Nausea/Vomiting Last Admin: 10/19/18 07:55 Dose: 4 mg Pantoprazole Sodium (Protonix Ec Tab) 40 mg PO 0600 [facility] Last Admin: 11/11/18 06:21 Dose: 40 mg Prednisone (Prednisone Tab) 20 mg PO DAILY [facility] Pregabalin (Lyrica) 75 mg PO BID [facility] Last Admin: 10/24/18 09:45 Dose: 75 mg Sildenafil Citrate (Revatio) 20 mg PO BID [facility] Last Admin: 11/10/18 18:36 Dose: 20 mg Verapamil HCl (Verapamil Inj) 2.5 mg IVP Q6H PRN PRN Reason: for Heart rate >120 Last Admin: 10/26/18 02:12 Dose: 2.5 mg Verapamil HCl (Calan Sr Tab) 240 mg PO DAILY [facility] Last Admin: 11/10/18 09:55 Dose: 240 mg - Labs Labs: 11/11/18 06:45 11/10/18 07:00 PT 14.8 SECONDS (9.4-12.5) H 10/23/18 14:00 INR 1.33 10/23/18 14:00 APTT 26.6 Seconds (26.9-38.3) L 10/23/18 14:00 - Constitutional Appears: Non-toxic, No Acute Distress - Head Exam Head Exam: NORMAL INSPECTION, NORMOCEPHALIC - Eye Exam Eye Exam: Normal appearance Pupil Exam: NORMAL ACCOMODATION - ENT Exam ENT Exam: Mucous Membranes Moist, Normal Exam - Respiratory Exam Respiratory Exam: Decreased Breath Sounds, Clear to Ausculation Bilateral, NORMAL BREATHING PATTERN - Cardiovascular Exam Cardiovascular Exam: +S1, +S2 - GI/Abdominal Exam GI & Abdominal Exam: Soft, Normal Bowel Sounds - Extremities Exam Extremities Exam: Full ROM, Normal Capillary Refill - Neurological Exam Neurological Exam: Alert, Awake, Oriented x3 - Psychiatric Exam Psychiatric exam: Normal Affect, Normal Mood - Skin Skin Exam: Dry, Normal Color, Warm Assessment and Plan - Assessment and Plan (Free Text) Assessment: A 73 year old female who came in to the ER due to shortness of breath requiring intubation and admitted to ICU. Successfully extubated and now transferred to telemetry. History of history of coronary artery disease, history of CABG in 2013, PTCA in 2014, history of atrial fibrillation, sick sinus syndrome requiring PPM, history of pulmonary hypertension on Revatio. Recent Echo on 10/19/18 showed LVEF 55-60%, moderately reduced RV systolic function, trace AR/MR, mild TR , RVSP 55 mmHg, moderate pulmonary hypertension. Admitted for respiratory failure, pneumonia, worsening renal insufficency, pneumonia.Clinically improved, Cardiac status stable. Improved oral intake. Physical therapy. Discharge planning, recommended rehab but family refusing and wanted to go home. Plan: No distress, feels okay Heart rate controlled Blood pressure controlled Cardiac status stable On Amiodarone 200 mg daily,Eliquis 2.5 mg BID, Lipitor 40 mg daily, Catapres 0.3 mg patch daily, Hydralazine 50 mg BID, lopressor 50 mg BID, Revatio 20 mg BID, Verapamil 240 mg daily Continue current treatment Continue current medications Physical therapy Discharge planning Will follow up Seen and examined by me and Dr. Latif
[2018-11-11 08:17] LABS: LYMPHOCYTE 4 % (22.0-35.0); MONOCYTE 5 % (1.0-6.0); NEUTROPHIL 91 % (50.0-70.0)
--- NOTE | 2018-11-11 08:30 | PN ---
DATE: 11/11/2018 SUBJECTIVE: The patient appears very comfortable this morning. She is not short of breath at rest. PHYSICAL EXAMINATION: VITAL SIGNS (Last noted in the computer): Temperature 97.2, pulse 60, respirations 18, blood pressure 173/78. Oxygen saturation on nasal cannula is 100%. HEENT: Normocephalic, atraumatic. No JVD. CARDIOVASCULAR: Systolic ejection murmur at the lower left sternal border. Questionable S3 gallop. LUNGS: Very minimal/less crackles at the bases. Otherwise, clear. EXTREMITIES: Less edema. No cyanosis. No clubbing. Calves are nontender to palpation. GASTROINTESTINAL: Abdomen is soft, nontender and nondistended. Bowel sounds are positive. SKIN: No acute rash. NEUROLOGIC: Exam limited at the present time. IMPRESSION: 1. Respiratory failure. 2. Acute congestive heart failure. 3. Advanced chronic obstructive pulmonary disease. 4. Right lower lobe pneumonia. 5. Rule out myocardial infarction. 6. Paroxysmal atrial fibrillation. 7. Renal insufficiency. PLAN: The patient appears very comfortable this morning. She is not short of breath at rest. She does state to feeling much better overall. I did discuss the case with the night nurse at length. The night nurse stated the patient had a very good night. On physical exam, the patient's bronchospasm continues to resolve. In addition, the alveolar-arterial gradient also continues to resolve. I will continue with the current nebulizer treatments and low-dose oral steroids (decreased yesterday) for now. The patient also remains on Revatio - for her pulmonary hypertension. The patient will also continue with BiPAP at night and oxygen via nasal cannula during the day. Inputs by Renal and Cardiology are also noted. Clinical status of the patient is significantly improved overall. However, given the above, the future status/prognosis for this patient does remain guarded. I will discuss the above with the attending physician. Bhupinder Chiang MD [facility]
[2018-11-11 08:39] LABS: ALBUMIN 3.3 g/dL (3.0-4.8); CALCIUM 9.6 mg/dL (8.4-10.5)
--- NOTE | 2018-11-11 08:43 | PN ---
DATE: 11/09/2018 SUBJECTIVE: The patient is a 73-year-old, seen and examined. Doing lot better. Much more awake, alert, oriented, communicative. Answering appropriately. Mild shortness of breath. She is eating fair, drinking fluids. She seems to be a lot better as compared to when she came in. PHYSICAL EXAMINATION: VITAL SIGNS: She is afebrile, pulse 60, respirations 20, blood pressure 136/64. LUNGS: Bilateral fair airflow but has diffusely decreased breath sounds because of COPD and active brachial rhonchi. HEART: S1 and S2 audible. ABDOMEN: Soft, obese, nontender. No rebound, no guarding. NEUROLOGICAL: She is awake and alert. Able to communicate well. EXTREMITIES: Bilateral legs no edema. LABORATORY DATA: WBC is 10.4, hemoglobin 9.8, hematocrit 34, platelets 115. Chemistries: Sodium 152, potassium 4.2, chloride 115, CO2 of 30, BUN 79, creatinine 2.6, blood sugar of 253. ASSESSMENT: 1. Status post chronic obstructive pulmonary disease exacerbation, status post respiratory failure, was on ventilator, was successfully extubated. 2. Congestive heart failure, resolved. 3. Pulmonary hypertension. 4. Hyponatremia, improving. 5. Hyperkalemia resolved. 6. Non-insulin dependent diabetes. 7. Coronary artery disease, status post open heart surgery. 8. Poor oral intake. 9. Oral thrush. 10. Chronic anemia. PLAN: We will encourage p.o. fluid. Daughter by the bedside. She seems to be cooperating now. The patient currently is on hydralazine and verapamil. She is on Catapres patch #3, amiodarone 200 daily. Discontinue her Diflucan since her oral thrush seems to be improving. We will just keep her on Mycelex Nelia. Continue her on Lyrica. Her steroids have been switched to p.o. We will continue her on Revatio. We will follow up her electrolytes, CBC, and CMP in a.m. Laurel Schultz MD
[2018-11-11] MEDS: Insulin Reg-HIGH-Coverage SC SCH ×4 (09:05→21:48)
[2018-11-11] MEDS: Verapamil 120 mg ER Tab PO SCH (09:06)
[2018-11-11] MEDS: Sildenafil 20 MG TAB PO SCH ×2 (09:11→17:36)
[2018-11-11] MEDS ORDERED: Darbepoetin Alfa 60 mcg/ml Inj SC ONE (13:26)
[2018-11-11 13:57] LABS: IRON 84 ug/dL (45-180)
[2018-11-11 14:06] LABS: % IRON SATURATION 41 % (20-55); TOTAL IRON BINDING CAPACITY 207 ug/dL (265-497)
--- NOTE | 2018-11-11 18:40 | PN ---
DATE: 11/11/2018 SUBJECTIVE: The patient is seen sitting in bed. She is awake. She is alert. She is comfortable. PHYSICAL EXAMINATION: GENERAL: Elderly lady sitting in chair. VITAL SIGNS: Blood pressure , heart rate 60, respiratory rate 20, and temperature 97.5. HEENT: Normocephalic, atraumatic, positive pallor. NECK: Supple, no JVD. LUNGS: Bilateral equal air entry, bilateral equal expansion. CARDIAC: S1 and S2, regular rate and rhythm, no murmur, no rub. ABDOMEN: Obese, distended, soft, nontender, bowel sounds present. EXTREMITIES: No lower extremity edema. LABORATORY DATA: WBC 7.5, hemoglobin 9.8, hematocrit 34, and platelets 109. Sodium 155, potassium 4, chloride 118, CO2 of 34, BUN 77, creatinine 2.4, glucose 157, calcium 9.6, and albumin 3.3. CURRENT MEDICATIONS: Apresoline 50 b.i.d., Calan 240, Catapres 0.3, Cordarone 200, Eliquis 2.5 b.i.d., Lipitor 40, Lopressor 50 b.i.d., and Revatio 20 b.i.d. ASSESSMENT: 1. Acute kidney injury superimposed on chronic kidney disease stage 4, resolved acute kidney injury, creatinine at baseline now. 2. Hyponatremia, dehydration. 3. Hyperkalemia, resolved. 4. Chronic obstructive pulmonary disease, right heart failure, pulmonary hypertension. 5. Coronary artery disease, history of coronary artery bypass graft. 6. [id number] diabetes mellitus. 7. Hypertension. PLAN: 1. Push p.o. fluids. 2. Continue current antihypertensives. 3. Avoid nephrotoxins. 4. Repeat iron stores. 5. Aranesp 60 mcg subcu today. 6. Will likely need BELINDA as outpatient. Doris Antunez MD
--- NOTE | 2018-11-11 22:16 | PN ---
DATE: 11/11/2018 SUBJECTIVE: The patient is seen in bed, in no acute distress, and nontoxic. PHYSICAL EXAMINATION: VITAL SIGNS: Temperature is 97, blood pressure is 160/70, and respiratory rate is 16. HEENT: Unremarkable. NECK: Supple. LUNGS: Decreased breath sounds. HEART: Normal S1 and S2. ABDOMEN: Soft. LABORATORY DATA: Reveals white count of 7.5 and hemoglobin 9. Chemistry reveals creatinine of 2.4. REVIEW OF ORDERS: Reveals the patient is off of antibiotics. ASSESSMENT AND PLAN: A 73-year-old female seen earlier today in room 561, bed 1, admitted to the intensive care with hypertensive emergency complicated by ventilatory-dependent hypercapnic respiratory failure and cardiorenal failure complicated also with Pseudomonas urinary tract infection and pyelonephritis, completed 14 days of antibiotics. Currently now is off of antibiotics, afebrile, and the patient is at risk for developing nosocomial infection. Review of orders reveal the patient is on p.o. prednisone. Dr. Schultz's note is reviewed. Dr. Chiang's note is also reviewed. Dr. Latif's addendum is reviewed. Dr. Antunez's progress note is reviewed. We will follow with you. Juan Miguel Malone MD
[2018-11-11 23:12] VITALS: RESP 18; O2SAT 100
[2018-11-12] MEDS: Levalbuterol 1.25 MG/3 ML Inhal Soln UD IH SCH ×2 (02:00→07:12)
--- NOTE | 2018-11-12 03:08 | DS ---
HISTORY OF PRESENT ILLNESS: The patient is a 73-year-old black female who came to the emergency room on 10/18/2018, with increasing cough, congestion, and shortness of breath. She was found to have bilateral pneumonia. She has congestive heart failure. She developed respiratory distress, was intubated and was successfully extubated. Her recovery was very slow. She developed thrush. Her oral intake was very poor; however, she responded to Diflucan and has been on IV antibiotic and nebulizer treatment. Blood sugar was closely monitored. Other sales and service consultant including applications packager Dr. Chiang and senior treasury analyst Dr. Latif and Infectious Disease, Dr. Malone has been following. She was recommended to go to subacute rehab, but her family and herself wanted to go home, so she is being discharged home today. PHYSICAL EXAMINATION: GENERAL: She is awake and alert, able to communicate. VITAL SIGNS: She is afebrile, pulse 76, respirations 20, and blood pressure 164/76. LUNGS: Bilateral diffuse decreased breath sounds. HEART: S1 and S2 audible. Irregular rate control. ABDOMEN: Soft, obese, and nontender. No rebound. No guarding. NEUROLOGIC: She is awake and alert, able to communicate. EXTREMITIES: Bilateral leg, +1 edema. LABORATORY DATA: WBC is 7.5, hemoglobin 9.8, hematocrit 33.7, and platelets 109. Chemistry; sodium 155, potassium 4.0, chloride 118, CO2 of 34, BUN 77, creatinine 2.4, and blood sugar of 302. Flu test was positive. ASSESSMENT: 1. Chronic obstructive pulmonary disease exacerbation. 2. Bilateral pneumonia. 3. Carbon dioxide retention. 4. Congestive heart failure. 5. Chronic atrial fibrillation. 6. Insulin-dependent diabetes. 7. Hyperlipidemia. 8. [id number] renal failure. DISCHARGE PLAN: The patient is being discharged home today. She is going to be discharged on ferrous sulfate 325 mg daily. She is on Zaroxolyn 5 mg daily. She is on Lyrica 75 mg twice a day. She is on spironolactone 25 mg daily, atorvastatin 40 mg daily, Eliquis 2.5 mg daily, Revatio 20 mg twice a day, Lasix 40 mg daily, folic acid 1 mg daily, Singulair 10 mg daily, magnesium oxide 400 daily, lisinopril 20 mg daily, and metoprolol 50 mg twice a day. The patient has combination of pulmonary hypertension and advanced COPD with CO2 retention and oxygen dependent. The patient requires Trelegy and she also needs noninvasive ventilation because of her chronic respiratory failure and severe COPD. Her noninvasive ventilation is AVAPS mode at home and battery backup if there is any interruption since she cannot afford to have interruption in therapy that is extremely important to ensure her nighttime and daytime use to maintain her CO2 within normal range and pulse ox above 92% to 93%. This plan was discussed with the patient. Bilevel with backup rate has been tried, and the patient was still experiencing elevated CO2, so it is important to set up noninvasive ventilation machine. The patient will be followed by myself and Dr. Chiang and Dr. Latif as outpatient. Laurel Schultz MD
[2018-11-12] MEDS: Pantoprazole 40 mg EC Tab PO SCH (05:07)
--- NOTE | 2018-11-12 06:47 | CP.PCM.PN ---
Subjective - Date & Time of Evaluation Date of Evaluation: 11/12/18 Time of Evaluation: 06:20 - Subjective Subjective: Awake, alert, no distress, wanted to go home Reason for consultation and follow up: Cardiac evaluation of shortness of breath , respiratory failure, intubated and successfully extubated, pneumonia, history of coronary artery disease, history of CABG, PTCA, history of atrial fibrillation, worsening renal insufficiency Seen and examined by me and Dr. Latif Objective - Vital Signs/Intake and Output Vital Signs (last 24 hours): Temp Pulse Resp BP Pulse Ox 98.4 F 74 18 185/69 H 100 11/11/18 23:11 11/12/18 05:58 11/11/18 23:11 11/12/18 05:58 11/11/18 23:11 Intake and Output: 11/11/18 11/12/18 18:59 06:59 Intake Total 480 540 Balance 480 540 - Medications Medications: Current Medications Acetaminophen (Tylenol 325mg Tab) 650 mg PO Q6H PRN PRN Reason: Fever >100.4 F Last Admin: 11/10/18 13:19 Dose: 650 mg Albuterol/Ipratropium (Duoneb 3 Mg/0.5 Mg (3 Ml) Ud) 3 ml IH Q2H PRN PRN Reason: Shortness of Breath Last Admin: 10/19/18 10:38 Dose: 3 ml Amiodarone HCl (Cordarone) 200 mg PO DAILY [facility] Last Admin: 11/11/18 09:07 Dose: 200 mg Apixaban (Eliquis) 2.5 mg PO BID [facility]; Protocol Last Admin: 11/11/18 17:36 Dose: 2.5 mg Atorvastatin Calcium (Lipitor) 40 mg PO DAILY [facility] Last Admin: 11/11/18 09:11 Dose: 40 mg Budesonide (Pulmicort Respules) 0.5 mg IH [id number] [facility] Last Admin: 11/11/18 19:53 Dose: 0.5 mg Clonidine HCl (Catapres-Tts3 0.3 Mg/24 Hr) 1 patch TD Q7D@1000 [facility] Last Admin: 11/11/18 13:32 Dose: 1 patch Clotrimazole (Mycelex Nelia) 10 mg MT 5XD [facility] Last Admin: 11/12/18 05:08 Dose: 10 mg Dextrose (Dextrose 50% Inj) 0 ml IV STAT PRN; Protocol PRN Reason: Hypoglycemia Protocol Folic Acid (Folic Acid) 1 mg PO DAILY [facility] Last Admin: 11/11/18 09:11 Dose: 1 mg Hydralazine HCl (Apresoline) 50 mg PO BID [facility] Last Admin: 11/11/18 17:40 Dose: 50 mg Hydralazine HCl (Apresoline) 10 mg IVP Q4 PRN PRN Reason: SBP > 180 Last Admin: 11/08/18 01:13 Dose: 10 mg Insulin Human Regular (Humulin R High) 0 units SC [facility]; Protocol Last Admin: 11/11/18 21:48 Dose: Not Given Levalbuterol HCl (Xopenex) 1.25 mg IH [id number] [facility] Last Admin: 11/12/18 02:00 Dose: 1.25 mg Metoprolol Tartrate (Lopressor) 50 mg PO BID [facility] Last Admin: 11/11/18 17:39 Dose: 50 mg Montelukast Sodium (Singulair) 10 mg PO HS [facility] Last Admin: 11/11/18 21:51 Dose: 10 mg Ondansetron HCl (Zofran Inj) 4 mg IVP Q6H PRN PRN Reason: Nausea/Vomiting Last Admin: 10/19/18 07:55 Dose: 4 mg Pantoprazole Sodium (Protonix Ec Tab) 40 mg PO 0600 [facility] Last Admin: 11/12/18 05:07 Dose: 40 mg Prednisone (Prednisone Tab) 20 mg PO DAILY [facility] Last Admin: 11/11/18 09:07 Dose: 20 mg Pregabalin (Lyrica) 75 mg PO BID [facility] Last Admin: 10/24/18 09:45 Dose: 75 mg Sildenafil Citrate (Revatio) 20 mg PO BID [facility] Last Admin: 11/11/18 17:36 Dose: 20 mg Verapamil HCl (Verapamil Inj) 2.5 mg IVP Q6H PRN PRN Reason: for Heart rate >120 Last Admin: 10/26/18 02:12 Dose: 2.5 mg Verapamil HCl (Calan Sr Tab) 240 mg PO DAILY [facility] Last Admin: 11/11/18 09:06 Dose: 240 mg - Labs Labs: 11/11/18 06:45 11/11/18 08:00 PT 14.8 SECONDS (9.4-12.5) H 10/23/18 14:00 INR 1.33 10/23/18 14:00 APTT 26.6 Seconds (26.9-38.3) L 10/23/18 14:00 - Constitutional Appears: Non-toxic, No Acute Distress - Head Exam Head Exam: NORMAL INSPECTION, NORMOCEPHALIC - Eye Exam Eye Exam: Normal appearance Pupil Exam: NORMAL ACCOMODATION - ENT Exam ENT Exam: Mucous Membranes Moist, Normal Exam - Respiratory Exam Respiratory Exam: Decreased Breath Sounds, Clear to Ausculation Bilateral, NORMAL BREATHING PATTERN - Cardiovascular Exam Cardiovascular Exam: +S1, +S2 - GI/Abdominal Exam GI & Abdominal Exam: Soft, Normal Bowel Sounds - Neurological Exam Neurological Exam: Alert, Awake, Oriented x3 - Psychiatric Exam Psychiatric exam: Normal Affect, Normal Mood - Skin Skin Exam: Dry, Normal Color, Warm Assessment and Plan - Assessment and Plan (Free Text) Assessment: A 73 year old female who came in to the ER due to shortness of breath requiring intubation and admitted to ICU. Successfully extubated and now transferred to telemetry. History of history of coronary artery disease, history of CABG in 2013, PTCA in 2014, history of atrial fibrillation, sick sinus syndrome requiring PPM, history of pulmonary hypertension on Revatio. Recent Echo on 10/19/18 showed LVEF 55-60%, moderately reduced RV systolic function, trace AR/MR, mild TR , RVSP 55 mmHg, moderate pulmonary hypertension. Admitted for respiratory failure, pneumonia, worsening renal insufficency, pneumonia.Cardiac status stable. Physical therapy. Discharge planning (Home).Clinically improved. Plan: Awaiting discharge home today No distress, feels okay Heart rate controlled Blood pressure controlled Cardiac status stable On Amiodarone 200 mg daily,Eliquis 2.5 mg BID, Lipitor 40 mg daily, Catapres 0.3 mg patch daily, Hydralazine 50 mg BID, lopressor 50 mg BID, Revatio 20 mg BID, Verapamil 240 mg daily Continue current treatment Continue current medications Physical therapy Follow up up in office 2-3 weeks Seen and examined by me and Dr. Latif
[2018-11-12 07:03] VITALS: TEMP 98
[2018-11-12] MEDS: Budesonide 0.5 mg/2 ml Inhal Susp UD IH SCH (07:15)
--- NOTE | 2018-11-12 07:41 | PN ---
DATE: 11/12/2018 PULMONARY PROGRESS NOTE SUBJECTIVE: The patient appears very comfortable this morning. She is not short of breath at rest. PHYSICAL EXAMINATION VITAL SIGNS: Temperature is 98.4, pulse is 74, respirations 18, blood pressure 185/69. Oxygen saturation on nasal cannula is 100%. HEENT: Normocephalic, atraumatic. No JVD. CARDIOVASCULAR: Systolic ejection murmur at the lower left sternal border. Questionable S3 gallop. LUNGS: Clear bilaterally this morning. GASTROINTESTINAL: Abdomen is soft, nontender and nondistended. Bowel sounds are positive. EXTREMITIES: Less edema. No cyanosis, no clubbing. Calves are nontender to palpation. SKIN: No acute rash. NEUROLOGIC: Limited at the present time. IMPRESSION 1. Respiratory failure. 2. Acute congestive heart failure. 3. Advanced chronic obstructive pulmonary disease. 4. Right lower lobe pneumonia. 5. Rule out myocardial infarction. 6. Paroxysmal atrial fibrillation. 7. Renal insufficiency. PLAN: The patient appears very comfortable this morning. She is not short of breath at rest. She does state to feeling much, much better overall. I did discuss the case with the night nurse at length. The night nurse stated the patient had a very good night. On physical exam, the patient's bronchospasm has primarily resolved. In addition, the oxygen saturation on nasal cannula is now 100%. I will continue with the current nebulizer treatments and low-dose oral steroids for now. The patient also remains on Revatio - for her pulmonary hypertension. Inputs by Renal and Cardiology are also noted. The patient is for discharge in the near future. The patient does require a trilogy noninvasive ventilator at night. She has severe chronic respiratory failure due to her severe chronic obstructive pulmonary disease. The patient will require trilogy noninvasive ventilation in the AVAPS mode at home, and battery backup, as there cannot be any interruption in the therapy. This is to ensure nighttime and daytime use to maintain the pCO2 levels within a normal range. Plan has been discussed with the patient and family. Bilevel positive airway pressure with backup rate has been tried, and the patient did still experience elevated CO2 levels. Clinical status of the patient is significantly improved overall. However, given the above, the future status/prognosis for this patient remains very guarded. I will discuss the above with the attending physician. Hopefully, the patient will follow up with me in the office--post discharge. Bhupinder Chiang MD [facility]
[2018-11-12] MEDS: Insulin Reg-HIGH-Coverage SC SCH (08:15)
[2018-11-12] MEDS: Sildenafil 20 MG TAB PO SCH (09:18)
[2018-11-12] MEDS: Verapamil 120 mg ER Tab PO SCH (09:19)
[2018-11-12 09:34] VITALS: PULSE 95
[2018-11-12 10:54] VITALS: BP 171/52
--- NOTE | 2018-11-12 17:02 | PN ---
DATE: 11/12/2018 SUBJECTIVE: The patient is in preparation to leave the hospital after a long hospital stay. Her oral intake appears to have improved. She still remains mildly hypernatremic, but her potassium level was normalized. Her BUN and creatinine have stabilized with a BUN in the 70s and a creatinine in the low to mid two range, which is close to her baseline levels. MEDICATIONS: Medication list reviewed. The patient is currently on hydralazine, verapamil, clonidine patch, amiodarone, Eliquis, folic acid, sliding scale insulin, Lipitor, Lopressor, Mycelex kathrin, prednisone on tapering dose, Protonix, Pulmicort, Revatio, Singulair, Tylenol p.r.n. verapamil p.r.n., Xopenex, and Zofran p.r.n. PHYSICAL EXAMINATION: INTAKE/OUTPUT: Intake is 1000, output is not charted. VITAL SIGNS: Blood pressure 171/52, pulse of 95, temperature is 98 with a respiratory rate of 18, pulse ox 100%. HEENT: Shows her be normocephalic, atraumatic. Conjunctivae are pale. Sclerae are nonicteric. NECK: Supple. No neck vein distention. CHEST: Clear to auscultation and percussion with slight decreased breath sounds at the bases. No rales, rhonchi or wheezing. CARDIOVASCULAR: Shows an irregular S1, S2. Positive MR/TR/AI/. No S3, no S4, no rub. ABDOMEN: Soft. Mildly obese. Nondistended. No rebound, guarding, no masses. EXTREMITIES: Show no lower extremity cyanosis, clubbing or edema. LABORATORY DATA AND IMAGING: CBC, white blood cell count 7.5, hemoglobin of 9.8 with a platelet count of 109,000. Chemistries show a sodium of 155, CO2 of 34 with a chloride of 118. BUN is stable at 77. Creatinine stable at 2.4. Glucose is 157 with repeat 215 and again 302. Iron saturations are 41%. Liver enzymes are normal. Albumin remains stable at 3.3. Microbiology from early on during the hospitalization showed yeast in her sputum, urine was positive for Pseudomonas and initial blood cultures are positive for coag-negative staph. All recent cultures have been negative. ASSESSMENT: 1. Acute renal failure superimposed on chronic kidney disease. For the most part, this has resolved. The patient has chronic kidney disease stage IV. The trick here is to keep the patient well hydrated when she leaves the hospital. The patient avoided placement of a Dobbhoff tube. She needs to drink large amounts of water to normalize her sodium and chloride levels. She should also remain on a low-potassium diet. 2. History of chronic obstructive pulmonary disease, status post bilateral pneumonia with pulmonary nodules. The patient completed a course of antibiotic therapy. 3. Status post respiratory failure with intubation. 4. History of chronic anemia. Hemoglobin is stable at 9.8. Iron saturations are okay. In all likelihood, she will not receive Aranesp in the outpatient setting. 5. History of [id number] diabetes mellitus, the patient to be discharged home on insulin therapy. 6. 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 7. History of pulmonary hypertension with valvular heart disease, ejection fraction is 62%. 8. History of hyperkalemia. Cautioned the patient's family to avoid giving her high-potassium containing foods. Should the patient continue to have challenges maintaining her potassium in a normal range, perhaps using a medication such as Veltassa 8.4 g can be taken on a regular basis. PLAN: 1. The plan is outlined above. 2. The patient should have followup labs done in the outpatient setting in 1-2 weeks. 3. Would avoid giving her any angiotensin receptor blockers or DANIEL inhibitors in light of her advanced chronic kidney disease stage IV and her tendency to her hyperkalemia. 4. No formal renal followup in the outpatient setting unless her situation dramatically deteriorates. Stalin Ibanez MD
--- NOTE | 2018-11-12 21:52 | PN ---
DATE: 11/12/2018 SUBJECTIVE: The patient is seen earlier this morning in room 561, bed 1. No fevers. No chills. No nausea. No vomiting. PHYSICAL EXAMINATION: VITAL SIGNS: Temperature 98, blood pressure 112/70, and respiratory rate 18. HEENT: Unremarkable. NECK: Supple. LUNGS: Decreased breath sounds. HEART: Normal S1 and S2. ABDOMEN: Soft. LABORATORY DATA: Reveals a white count of 7.5, hemoglobin of 9, BUN of 72, and creatinine of 2.4. ASSESSMENT AND PLAN: This is a 73-year-old female who was seen earlier this morning in room 561, initially was admitted to the intensive care unit for hypertensive emergency, complicated by ventilatory dependent hypercapnic respiratory failure and cardiorenal failure complicated by Pseudomonas urinary tract infection and pyelonephritis. She completed 14 days of antibiotics. Currently, off of antibiotics. Juan Miguel Malone MD
--- NOTE | 2018-11-13 02:05 | DS ---
HISTORY OF PRESENT ILLNESS: The patient is a 73-year-old, who was admitted on 10/18/2018, with increasing cough, congestion, shortness of breath. She was found to be hypoxic, tachycardic. X-ray of the chest shows bilateral pneumonia. Her respiratory status got worse. She was intubated and was successfully extubated, remained on antibiotic and IV steroid. Blood sugar was monitored. She developed thrush with poor oral intake. She was treated with nystatin and , she improved, so steroid is being slowly tapered down. Noninvasive BiPAP has been arranged and the patient is discharged home today. For further details see the discharge summary dictated on 11/11/2018. DISCHARGE MEDICATIONS: Ferrous sulfate 325 mg daily, metolazone 5 mg daily, Lyrica 75 mg twice a day. She is on Ventolin HFA, spironolactone 25 mg daily, atorvastatin 40 mg daily, Eliquis 2.5 mg twice a day, Revatio 20 mg twice a day, Lasix 40 mg daily, folic acid 1 mg daily, Singulair 10 mg daily, lisinopril 20 mg daily, metoprolol 50 mg twice a day and Percocet prescription was also given. DISCHARGE PLAN: We will followup in office. Laurel Schultz MD
== END 2018-11-12 11:45 | disposition home health service (06) | DRG 871 ==
LOC: ED 16:44 → ERH 18:13 → 2RNO 21:36 → CCU 10-23 12:17 → 2RNO 10-31 18:13 → 5RNO 11-09 12:19
PROVIDERS: ADMIT Internal Medicine; ATTEND Internal Medicine
PROC: 5A09457 Assistance with Respiratory Ventilation, 24-96 Consecutive Hours, Continuous Positive Airway Pressure (ICD-10-PCS; 2018-10-18)
PROC: 30233N1 Transfusion of Nonautologous Red Blood Cells into Peripheral Vein, Percutaneous Approach (ICD-10-PCS; 2018-10-21)
PROC: 5A1945Z Respiratory Ventilation, 24-96 Consecutive Hours (ICD-10-PCS; principal; 2018-10-23)
PROC: 0BH17EZ Insertion of Endotracheal Airway into Trachea, Via Natural or Artificial Opening (ICD-10-PCS; 2018-10-23)
PROC: 3E0F7GC Introduction of Other Therapeutic Substance into Respiratory Tract, Via Natural or Artificial Opening (ICD-10-PCS; 2018-10-23)
PROC: 5A09557 Assistance with Respiratory Ventilation, Greater than 96 Consecutive Hours, Continuous Positive Airway Pressure (ICD-10-PCS; 2018-11-04)
DX: A41.1 Sepsis due to other specified staphylococcus (principal); J18.1 Lobar pneumonia, unspecified organism; G92 Toxic encephalopathy; I50.43 Acute on chronic combined systolic (congestive) and diastolic (congestive) heart failure; J96.22 Acute and chronic respiratory failure with hypercapnia; J96.21 Acute and chronic respiratory failure with hypoxia; J44.1 Chronic obstructive pulmonary disease with (acute) exacerbation; N18.4 Chronic kidney disease, stage 4 (severe); I13.0 Hypertensive heart and chronic kidney disease with heart failure and stage 1 through stage 4 chronic kidney disease, or unspecified chronic kidney disease; J44.0 Chronic obstructive pulmonary disease with (acute) lower respiratory infection; N17.9 Acute kidney failure, unspecified; I42.9 Cardiomyopathy, unspecified; E87.2 Acidosis; I16.1 Hypertensive emergency; M48.56XA Collapsed vertebra, not elsewhere classified, lumbar region, initial encounter for fracture; N12 Tubulo-interstitial nephritis, not specified as acute or chronic; E87.0 Hyperosmolality and hypernatremia; B37.0 Candidal stomatitis; I48.92 Unspecified atrial flutter; R65.20 Severe sepsis without septic shock; E11.40 Type 2 diabetes mellitus with diabetic neuropathy, unspecified; I25.10 Atherosclerotic heart disease of native coronary artery without angina pectoris; E78.5 Hyperlipidemia, unspecified; E11.22 Type 2 diabetes mellitus with diabetic chronic kidney disease; E87.5 Hyperkalemia; I27.21 Secondary pulmonary arterial hypertension; I08.1 Rheumatic disorders of both mitral and tricuspid valves; I48.0 Paroxysmal atrial fibrillation; D63.1 Anemia in chronic kidney disease; B96.5 Pseudomonas (aeruginosa) (mallei) (pseudomallei) as the cause of diseases classified elsewhere; I50.82 Biventricular heart failure; M17.0 Bilateral primary osteoarthritis of knee; E11.65 Type 2 diabetes mellitus with hyperglycemia; I48.2 Chronic atrial fibrillation; E66.9 Obesity, unspecified; K42.9 Umbilical hernia without obstruction or gangrene; R19.5 Other fecal abnormalities; E86.0 Dehydration; K57.30 Diverticulosis of large intestine without perforation or abscess without bleeding; D50.9 Iron deficiency anemia, unspecified; K59.00 Constipation, unspecified; F41.0 Panic disorder [episodic paroxysmal anxiety]; K40.90 Unilateral inguinal hernia, without obstruction or gangrene, not specified as recurrent; Z99.81 Dependence on supplemental oxygen; Z68.37 Body mass index [BMI] 37.0-37.9, adult; N28.1 Cyst of kidney, acquired; I25.2 Old myocardial infarction; Z79.4 Long term (current) use of insulin; Z79.899 Other long term (current) drug therapy; Z79.01 Long term (current) use of anticoagulants; Z95.1 Presence of aortocoronary bypass graft; Z95.0 Presence of cardiac pacemaker; Z95.5 Presence of coronary angioplasty implant and graft; Z87.891 Personal history of nicotine dependence; Z91.013 Allergy to seafood

== ENCOUNTER 2018-12-21 17:52 | Inpatient (IN) | payer MEDICARE, OTHER ==
[2018-12-21 17:52] VITALS: PULSE 63; BMI 38.9
[2018-12-21 19:20] LABS: BASO # 0.04 K/mm3 (0.0-2.0); BASO % 0.6 % (0.0-3.0); EOS # 0.2 (0.0-0.7); EOS % 2.8 % (1.5-5.0); LYMPH # 1.1 (1.2-3.4); MEAN CELL VOLUME 98.3 fl (80.0-105.0); MEAN CORPUSCULAR HEMOGLOBIN 28.5 pg (25.0-35.0); MONO # 1.3 (0.1-0.6); MONO % 19.4 % (1.0-6.0); PLATELET COUNT 275 10^3/uL (120.0-450.0); RBC 2.35 10^6/uL (3.5-6.1); RED CELL DISTRIBUTION WIDTH 28.5 % (11.5-14.5); WHITE BLOOD COUNT 6.7 10^3/uL (4.5-11.0)
[2018-12-21 19:24] LABS: INR 2.19; PARTIAL THROMBOPLASTIN TIME 32.4 Seconds (26.9-38.3); PROTHROMBIN TIME 24.3 SECONDS (9.4-12.5)
--- NOTE | 2018-12-21 19:24 | ED PDOC ---
Arrival/HPI - General Chief Complaint: Abnormal Labs Historian: Patient, Family - History of Present Illness Narrative History of Present Illness (Text): 12/21/18 19:22 A 73 year old female, whose past medical history includes COPD and CHF, presents to the emergency room for sent by her doctor for evaluation of a low blood count earlier today. Patient states she has been experiencing associated leg and thigh swelling bilaterally over the past 2 days. Patient notes she is currently on two blood thinners, one of them being eliquis. Patient states she is also experiencing shortness of breath and dyspnea on exertion with some chest discomfort. Patient's family notes patient has a history of hemorrhoids and had significant bleeding this past Sunday after going to the bathroom that has been resolved with no other episodes of bleeding. Patient denies any urinary output changes, fevers, or any other complaints. Hammerer Tab: Dr. Latif Time/Duration: < week (2 days) Symptom Onset: Gradual Symptom Course: Unchanged Activities at Onset: Light Context: Home Past Medical History - Provider Review Nursing Documentation Reviewed: Yes - Infectious Disease Hx of Infectious Diseases: None - Tetanus Immunization Tetanus Immunization: Unknown - Reproductive Menopause: Yes - Cardiac Hx Cardiac Disorders: Yes Hx Congestive Heart Failure: Yes Hx Pacemaker: Yes - Pulmonary Hx Chronic Obstructive Pulmonary Disease (COPD): Yes - Neurological Hx Neurological Disorder: No - HEENT Hx HEENT Disorder: Yes (WEARS RX GLASSES) - Renal Hx Renal Failure: Yes - Endocrine/Metabolic Hx Diabetes Mellitus Type 2: Yes - Hematological/Oncological Hx Blood Disorders: Yes Hx Anemia: Yes (IRON DEFICIENCY ANEMIA) - Integumentary Hx Dermatological Disorder: No - Musculoskeletal/Rheumatological Hx Arthritis: Yes (B/L knees) - Gastrointestinal Hx Gastrointestinal Disorders: Yes (THORACENTESIS WITH 17OO CC OF FLUID REMOVED 06-27-16) - Genitourinary/Gynecological Hx Genitourinary Disorders: Yes (HYSTERECTOMY) - Psychiatric Hx Psychophysiologic Disorder: Yes (SMOKED CIGARETTES PPD . QUIT 15 YRS AGO) Hx Anxiety: Yes Hx Substance Use: No - Surgical History Hx Cardiac Catheterization: Yes Hx Hysterectomy: Yes Hx Open Heart Surgery: Yes (CABG, pacemaker) - Anesthesia Hx Anesthesia: Yes Hx Anesthesia Reactions: No Hx Malignant Hyperthermia: No - Suicidal Assessment Feels Threatened In Home Enviroment: No Family/Social History - Physician Review Nursing Documentation Reviewed: Yes Family/Social History: Unknown Family HX Smoking Status: Never Smoked Hx Alcohol Use: No Hx Substance Use: No Allergies/Home Meds Allergies/Adverse Reactions: Allergies shellfish Allergy (Mild, Uncoded 10/18/18 16:55) ITCHING Home Medications: Home Meds Medication Instructions Recorded Confirmed Spironolactone [Aldactone] 25 mg PO DAILY 08/17/14 10/18/18 Apixaban [Eliquis] 2.5 mg PO BID 05/05/16 10/18/18 Atorvastatin [Lipitor] 40 mg PO DAILY 05/05/16 10/18/18 Folic Acid 1 mg PO DAILY 07/01/16 10/18/18 Magnesium Oxide [Magnesium] 400 mg PO DAILY 11/06/16 10/18/18 Albuterol Sulfate [Proair Hfa] 0.09 mg IH DAILY 10/18/18 10/18/18 Albuterol Sulfate [Ventolin Hfa] 1 puff IH Q4 PRN 10/18/18 10/18/18 Calcitriol [Rocaltrol] 0.25 mcg PO DAILY 10/18/18 10/18/18 Ferrous Sulfate [Feosol] 325 mg PO DAILY 10/18/18 10/18/18 Pregabalin [Lyrica] 75 mg PO BID 10/18/18 10/18/18 metOLazone [Zaroxolyn] 5 mg PO DAILY 10/18/18 10/18/18 Review of Systems - Review of Systems Constitutional: Fatigue. absent: Fevers Eyes: absent: Vision Changes, Eye Pain ENT: absent: Hearing Changes Respiratory: SOB (with chest discomfort) Cardiovascular: Edema, JOHNSON. absent: Calf Pain Gastrointestinal: absent: Abdominal Pain, Diarrhea, Nausea, Hematemesis Genitourinary Female: absent: Urine Output Changes Musculoskeletal: Other (bilateral leg and thigh swelling) Skin: absent: Rash Neurological: absent: Headache, Dizziness, Focal Weakness Endocrine: absent: Polyuria Hemo/Lymphatic: Easy Bleeding Psychiatric: absent: Depression Physical Exam - Physical Exam Narrative Physical Exam (Text): 12/21/18 19:22 Head: Atraumatic. Normocephalic. Eyes: PERRL. EOMI. Conjunctivae are pale. ENT: Mucous membranes are moist and intact. Oropharynx is clear and symmetric. Neck: Supple. Full ROM. Positive JVD. No lymphadenopathy. Cardiovascular: Tachycardic. Systolic murmur. Distal pulses intact. Pulmonary/Chest: Tachypneic. Wheezes with rales bilaterally. No accessory musce l usage. On nasal cannula. Abdominal: Soft but distended. There is no tenderness. No rebound, guarding, or rigidity. No organomegaly. Good bowel sounds. Back: No CVA tenderness. Rectal: refused by patient, although patient describes rectal bleeding three days ago, none since, no dark stools reported Extremities: Bilateral lower extremity edema extending to thighs. No erythema. Skin: Skin is warm and dry. No petechiae. No purpura. Neurological: Alert, awake, and oriented to person, place, time, and situation. Normal speech. Motor and sensory exam intact. Psychiatric: Good eye contact. Normal interaction, affect, and behavior. 12/21/18 20:37 Vital Signs Reviewed: Yes Vital Signs Temp Pulse Resp BP Pulse Ox 12/21/18 18:22 98.1 F 105 H 20 152/88 H 100 12/21/18 18:15 98.2 F 94 H 18 159/65 H 88 L Temperature: Afebrile Blood Pressure: Hypertensive Pulse: Tachycardic Respiratory Rate: Normal Pain Distress: Mild Mental Status: Positive for: Alert and Oriented X 3 Finger Stick Blood Glucose: 278 Medical Decision Making ED Course and Treatment: 12/21/18 19:22 Impression: 73 year old female presenting to the emergency room for evaluation of a low blood count. Plan: -- Packed cells leuko reduced -- Type and screen -- VBG -- EKG -- Cardiac ISO -- CMP -- BNP -- Chest X-ray -- Urinalysis -- Reassess and disposition Prior Visits: Notes and results from previous visits were reviewed. Progress Notes: Patient noted to be anemic, possible gi bleeding described patient initially refuses rectal exam. She has history of copd, cardiac disease with renal insufficiency. ICU consultation requested. Patient currently on blood thinner. No melena or gross bleeding noted in ED. She reports increased edema and dyspnea with exertion. Duonebs ordered. Blood transfusion ordered. Consent obtained after risks/indications/benefits reviewed with patient. Case d/w Dr. Schultz. Insulation Inspector accepts patient to ICU. 12/21/18 20:39 - Critical Care Critical Care Minutes: 30 minutes - RAD Interpretation Radiology Orders: 12/21/18 18:49 CHEST PORTABLE [RAD] Stat - EKG Interpretation EKG Interpretation (Text): 12/21/18 20:41 EKG sinus tachycardia rate of 111 with left axis deviation, right bundle branch block, lateral st abnormality Interpreted by ED Physician: Yes Type: 12 lead EKG - Scribe Statement The provider has reviewed the documentation as recorded by the Daryl Hernández All medical record entries made by the Daryl were at my direction and personally dictated by me. I have reviewed the chart and agree that the record accurately reflects my personal performance of the history, physical exam, medical decision making, and the department course for this patient. I have also personally directed, reviewed, and agree with the discharge instructions and disposition. Disposition/Present on Arrival - Present on Arrival Any Indicators Present on Arrival: Yes History of DVT/PE: No History of Uncontrolled Diabetes: No Urinary Catheter: Yes (ER) History of Decub. Ulcer: No History Surgical Site Infection Following: None - Disposition Have Diagnosis and Disposition been Completed?: Yes Diagnosis: Chest pain, Congestive heart failure, Anemia, Renal insufficiency, COPD (chronic obstructive pulmonary disease), Edema Disposition: HOSPITALIZED Disposition Time: 20:36 Patient Plan: Admission, ICU Patient Problems: Current Active Problems Problem Status Onset Anemia Acute CHF (congestive heart failure) Acute COPD (chronic obstructive pulmonary disease) Acute Chest pain Acute Edema Acute Renal insufficiency Acute Condition: CRITICAL
[2018-12-21 19:35] LABS: HEMOGLOBIN 6.7 g/dL (12.0-16.0)
[2018-12-21 19:40] LABS: VENOUS BLOOD GAS BASE EXCESS 13.2 mmol/L (0.0-2.0); VENOUS BLOOD GAS PO2 32 mm/Hg (30-55); VENOUS BLOOD PH 7.56 (7.32-7.43)
[2018-12-21 19:47] LABS: ALB/GLOB RATIO 1.1 (1.1-1.8); ALBUMIN 3.7 g/dL (3.0-4.8); CALCIUM 9.2 mg/dL (8.4-10.5)
[2018-12-21 20:06] LABS: TROPONIN I 0.03 ng/mL
--- NOTE | 2018-12-21 20:22 | CP.PCM.CON ---
<HanselHood prabhakar - Last Filed: 12/21/18 22:30> History of Present Illness - History of Present Illness History of Present Illness: Hood Hamm PGY2 ICU Consult Note for Dr. Loya Reason for consult: symptomatic anemia and CHF exacerbation Ms. Emerson is a 73 yr old female with a PMH of COPD on home O2, Afib on Eliquis, diastolic CHF, moderate pulmonary hypertension, moderate mitral regurgitation, moderate tricuspid regurgitation, chronic kidney disease stage I/II, CAD s/p open heart surgery and pacemaker placement, NIDDM who was presents to the ED with shortness of breath and acute drop in Hgb. Patient has recent admissions for COPD exacerbation and respiratory distress requiring intubation. The patient states that she has been short of breath and progressively having worsening swelling in her legs. 3 days ago, she had a BM following by bright red blood per rectum, which the patient and her daughter (Christiane, who is bedside) attribute to her picking at her hemorrhoids. Patient states that since then, she has not had any blood BM's or repeated episodes of BRBPR. She denies any recent fevers/chills, nausea/vomiting, diarrhea or chest pain. Her shortness of breath is not relieved by her breathing treatments at home. A full 12 point ROS was conducted and unremarkable except as stated above. PMD: [place] Cardio: Salomon PMH:COPD, diastolic CHF, moderate pulmonary hypertension, moderate mitral regurgitation, moderate tricuspid regurgitation, chronic kidney disease, CAD s/p open heart surgery, NIDDM PSH: Hysterectomy, CABG, Pacemaker placement All: Shellfish Meds: see MAR Social: denies ETOH, illicit drugs, and tobacco. Former heavy smoker. Lives w/ daughter (Winnie). Patient's daughter is a [employer] employee (PCP) FamHx: non-contributory Review of Systems - Review of Systems All systems: reviewed and no additional remarkable complaints except (as per HPI) Past Patient History - Infectious Disease Hx of Infectious Diseases: None - Tetanus Immunizations Tetanus Immunization: Unknown - Past Medical History & Family History Past Medical History?: Yes - Past Social History Smoking Status: Never Smoked - CARDIAC Hx Cardiac Disorders: Yes Hx Congestive Heart Failure: Yes Hx Pacemaker: Yes - PULMONARY Hx Chronic Obstructive Pulmonary Disease (COPD): Yes - NEUROLOGICAL Hx Neurological Disorder: No - HEENT Hx HEENT Problems: Yes (WEARS RX GLASSES) - RENAL Hx Renal Failure: Yes - ENDOCRINE/METABOLIC Hx Diabetes Mellitus Type 2: Yes - HEMATOLOGICAL/ONCOLOGICAL Hx Blood Disorders: Yes Hx Anemia: Yes (IRON DEFICIENCY ANEMIA) - INTEGUMENTARY Hx Dermatological Problems: No - MUSCULOSKELETAL/RHEUMATOLOGICAL Hx Arthritis: Yes (B/L knees) - GASTROINTESTINAL Hx Gastrointestinal Disorders: Yes (THORACENTESIS WITH 17OO CC OF FLUID REMOVED 06-27-16) - GENITOURINARY/GYNECOLOGICAL Hx Genitourinary Disorders: Yes (HYSTERECTOMY) - PSYCHIATRIC Hx Psychophysiologic Disorder: Yes (SMOKED CIGARETTES PPD . QUIT 15 YRS AGO) Hx Anxiety: Yes Hx Substance Use: No - SURGICAL HISTORY Hx Cardiac Catheterization: Yes Hx Hysterectomy: Yes Hx Open Heart Surgery: Yes (CABG, pacemaker) - ANESTHESIA Hx Anesthesia: Yes Hx Anesthesia Reactions: No Hx Malignant Hyperthermia: No Meds Allergies/Adverse Reactions: Allergies Allergy/AdvReac Type Severity Reaction Status Date / Time shellfish Allergy Mild ITCHING Uncoded 10/18/18 16:55 Physical Exam - Constitutional Appears: Well, Non-toxic, No Acute Distress - Head Exam Head Exam: ATRAUMATIC, NORMAL INSPECTION - Eye Exam Eye Exam: Normal appearance, PERRL Additional comments: conjunctival pallor - ENT Exam ENT Exam: Mucous Membranes Moist, Normal Exam - Neck Exam Neck exam: Positive for: Full Rom, Normal Inspection - Respiratory Exam Respiratory Exam: Rales, Wheezes. absent: Respiratory Distress - Cardiovascular Exam Cardiovascular Exam: Irregular Rhythm, +S1, +S2 - GI/Abdominal Exam GI & Abdominal Exam: Soft. absent: Tenderness - Rectal Exam Rectal Exam: Deferred - Extremities Exam Extremities exam: Positive for: pedal edema (2+ up to knees b/l), pedal pulses present - Neurological Exam Neurological exam: Alert, Oriented x3 - Skin Skin Exam: Normal Color, Warm Results - Vital Signs Recent Vital Signs: Last Vital Signs Temp 98.1 F 12/21/18 18:22 Pulse 105 H 12/21/18 18:22 Resp 20 12/21/18 18:22 BP 152/88 H 12/21/18 18:22 Pulse Ox 100 12/21/18 18:22 - Labs Result Diagrams: 12/21/18 19:10 12/21/18 19:10 Labs: Laboratory Results - last 24 hr 12/21/18 12/21/18 12/21/18 18:58 19:10 19:10 WBC RBC Hgb Hct MCV MCH MCHC RDW Plt Count Neut % (Auto) Lymph % (Auto) [place] % (Auto) Eos % (Auto) Baso % (Auto) Lymph # (Auto) [place] # (Auto) Eos # (Auto) Baso # (Auto) Absolute Neuts (auto) PT INR APTT pO2 32 VBG pH 7.56 H VBG pCO2 41.0 VBG HCO3 36.7 H VBG Total CO2 38.0 H VBG O2 Sat (Calc) 66.7 H VBG Base Excess 13.2 H VBG Potassium 4.3 Sodium 140.0 Chloride 103.0 Glucose 224 H Lactate 1.7 FiO2 21.0 BUN 43 H Creatinine 2.1 H Est GFR ( Amer) 28 Est GFR (Non-Af Amer) 23 POC Glucose (mg/dL) 278 H Random Glucose 226 H Calcium 9.2 Total Bilirubin 0.7 Total Creatine Kinase 151 Troponin I 0.03 D NT-Pro-B Natriuret Pep 5690 H Total Protein 7.1 Albumin 3.7 Globulin 3.4 Albumin/Globulin Ratio 1.1 Venous Blood Potassium 4.3 12/21/18 12/21/18 19:10 19:10 WBC 6.7 RBC 2.35 L Hgb 6.7 L* D Hct 23.1 L MCV 98.3 D MCH 28.5 MCHC 29.0 L RDW 28.5 H Plt Count 275 Neut % (Auto) 60.2 Lymph % (Auto) 17.0 L [place] % (Auto) 19.4 H Eos % (Auto) 2.8 Baso % (Auto) 0.6 Lymph # (Auto) 1.1 L [place] # (Auto) 1.3 H Eos # (Auto) 0.2 Baso # (Auto) 0.04 Absolute Neuts (auto) 4.04 PT 24.3 H INR 2.19 APTT 32.4 pO2 VBG pH VBG pCO2 VBG HCO3 VBG Total CO2 VBG O2 Sat (Calc) VBG Base Excess VBG Potassium Sodium Chloride Glucose Lactate FiO2 BUN Creatinine Est GFR ( Amer) Est GFR (Non-Af Amer) POC Glucose (mg/dL) Random Glucose Calcium Total Bilirubin Total Creatine Kinase Troponin I NT-Pro-B Natriuret Pep Total Protein Albumin Globulin Albumin/Globulin Ratio Venous Blood Potassium Assessment & Plan - Assessment and Plan (Free Text) Assessment: 73 yr old female with a PMH of COPD on home O2, Afib on Eliquis, diastolic CHF, moderate pulmonary hypertension, moderate mitral regurgitation, moderate tricuspid regurgitation, chronic kidney disease stage I/II, CAD s/p open heart surgery and pacemaker placement, NIDDM who was presents to the ED with shortness of breath and acute drop in Hgb. Patient appears to be in CHF exacerbation. Plan: Neuro - at baseline - monitor for changes Cardio - Lasix 20mg IVP STAT, and again after each unit of pRBC - cont diuresis w/ caution of renal function - Cardio consulted, recs appreciated - Last Echo from 10/2018 reviewed Pulm - duoneb cyndi and prn - maintain SaO2>90 - O2 2L NC cont - BiPAP HS - cont Singular and Revatio home doses GI - GI ppx - CLD till Hgb stabilizes Renal - insert millard to monitor I/O - cont diuresis w/ Lasix while monitoring renal function - cont home Aldactone Heme - anemia workup ordered to evaluate etiology - will transfuse 2 units; patient was consented - will trend CBC - admit to ICU for monitoring ID - no signs of infection - maintain normothermia Endo - ISS - accuchecks ACHS DVT ppx: SCDs, holding eliquis and other anticoagulation at this time till Hgb stabilizes GI ppx: protonix Case was reviewed with Dr. Loya <Timmy Loya - Last Filed: 12/22/18 18:38> Meds - Medications Medications: Current Medications Albuterol/Ipratropium (Duoneb 3 Mg/0.5 Mg (3 Ml) Ud) 3 ml IH [id number] CYNDI Last Admin: 12/22/18 16:57 Dose: 3 ml Albuterol/Ipratropium (Duoneb 3 Mg/0.5 Mg (3 Ml) Ud) 3 ml IH Q2H PRN PRN Reason: Shortness of Breath Last Admin: 12/22/18 12:09 Dose: 3 ml Atorvastatin Calcium (Lipitor) 40 mg PO HS CYNDI Dextrose (Dextrose 50% Inj) 0 ml IV STAT PRN; Protocol PRN Reason: Hypoglycemia Protocol Folic Acid (Folic Acid) 1 mg PO DAILY CYNDI Last Admin: 12/22/18 09:47 Dose: 1 mg Furosemide (Lasix) 40 mg IV BID CYNDI Dextrose (Dextrose 5% In Water 1000 Ml) 1,000 mls @ 0 mls/hr IV .Q0M PRN; Protocol PRN Reason: Hypoglycemia Protocol Insulin Human Lispro (Humalog Med) 0 units [facility]; Protocol Last Admin: 12/22/18 13:00 Dose: 5 u Insulin Human Lispro (Humalog Med) 0 units [place] [facility]; Protocol Lisinopril (Zestril) 20 mg PO DAILY [facility] Last Admin: 12/22/18 09:45 Dose: 20 mg Metoprolol Tartrate (Lopressor) 50 mg PO BID [facility] Last Admin: 12/22/18 09:46 Dose: 50 mg Montelukast Sodium (Singulair) 10 mg PO HS [facility] Last Admin: 12/21/18 22:31 Dose: 10 mg Oxycodone/Acetaminophen (Percocet 5/325 Mg Tab) 1 tab PO TID [facility] Stop: 12/25/18 10:01 Last Admin: 12/22/18 15:14 Dose: Not Given Pantoprazole Sodium (Protonix Inj) 40 mg IVP Q12 [facility] Last Admin: 12/22/18 15:24 Dose: 40 mg Pregabalin (Lyrica) 75 mg PO BID [facility] Last Admin: 12/22/18 09:46 Dose: 75 mg Sildenafil Citrate (Revatio) 20 mg PO Q12 [facility] Last Admin: 12/22/18 09:47 Dose: 20 mg Results - Vital Signs Recent Vital Signs: Last Vital Signs Temp 98.3 F 12/22/18 01:36 Pulse 67 12/22/18 16:00 Resp 17 12/22/18 16:00 BP 145/54 L 12/22/18 16:00 Pulse Ox 99 12/22/18 16:00 - Labs Result Diagrams: 12/22/18 17:00 12/22/18 06:00 Labs: Laboratory Results - last 24 hr 12/21/18 12/21/18 12/21/18 18:58 19:00 19:10 WBC RBC Hgb Hct MCV MCH MCHC RDW Plt Count Neut % (Auto) Lymph % (Auto) [place] % (Auto) Eos % (Auto) Baso % (Auto) Lymph # (Auto) [place] # (Auto) Eos # (Auto) Baso # (Auto) Absolute Neuts (auto) PT INR APTT pCO2 pO2 32 HCO3 ABG pH ABG Total CO2 ABG O2 Saturation ABG Base Excess ABG Potassium VBG pH 7.56 H VBG pCO2 41.0 VBG HCO3 36.7 H VBG Total CO2 38.0 H VBG O2 Sat (Calc) 66.7 H VBG Base Excess 13.2 H VBG Potassium 4.3 Sodium 140.0 Chloride 103.0 Glucose 224 H Lactate 1.7 FiO2 21.0 Crit Value Called To Crit Value Called By Blood Gas Notified Time Potassium Carbon Dioxide Anion Gap BUN Creatinine Est GFR ( Amer) Est GFR (Non-Af Amer) POC Glucose (mg/dL) 278 H Random Glucose Calcium Phosphorus Magnesium Iron TIBC % Saturation Ferritin Total Bilirubin AST ALT Alkaline Phosphatase Lactate Dehydrogenase Total Creatine Kinase Troponin I NT-Pro-B Natriuret Pep Total Protein Albumin Globulin Albumin/Globulin Ratio Vitamin B12 Folate Arterial Blood Potassium Venous Blood Potassium 4.3 Blood Type O POSITIVE Antibody Screen Negative Crossmatch See Detail BBK History Checked Patient has bt 12/21/18 12/21/18 12/21/18 19:10 19:10 19:10 WBC 6.7 RBC 2.35 L Hgb 6.7 L* D Hct 23.1 L MCV 98.3 D MCH 28.5 MCHC 29.0 L RDW 28.5 H Plt Count 275 Neut % (Auto) 60.2 Lymph % (Auto) 17.0 L [place] % (Auto) 19.4 H Eos % (Auto) 2.8 Baso % (Auto) 0.6 Lymph # (Auto) 1.1 L [place] # (Auto) 1.3 H Eos # (Auto) 0.2 Baso # (Auto) 0.04 Absolute Neuts (auto) 4.04 PT 24.3 H INR 2.19 APTT 32.4 pCO2 pO2 HCO3 ABG pH ABG Total CO2 ABG O2 Saturation ABG Base Excess ABG Potassium VBG pH VBG pCO2 VBG HCO3 VBG Total CO2 VBG O2 Sat (Calc) VBG Base Excess VBG Potassium Sodium 141 Chloride 97 L Glucose Lactate FiO2 Crit Value Called To Crit Value Called By Blood Gas Notified Time Potassium 4.3 Carbon Dioxide 36 H Anion Gap 12 BUN 43 H Creatinine 2.1 H Est GFR ( Amer) 28 Est GFR (Non-Af Amer) 23 POC Glucose (mg/dL) Random Glucose 226 H Calcium 9.2 Phosphorus Magnesium Iron TIBC % Saturation Ferritin Total Bilirubin 0.7 AST 104 H D ALT 191 H Alkaline Phosphatase 91 Lactate Dehydrogenase 1265 H Total Creatine Kinase 151 Troponin I 0.03 D NT-Pro-B Natriuret Pep 5690 H Total Protein 7.1 Albumin 3.7 Globulin 3.4 Albumin/Globulin Ratio 1.1 Vitamin B12 Folate Arterial Blood Potassium Venous Blood Potassium Blood Type Antibody Screen Crossmatch BBK History Checked 12/21/18 12/21/18 12/22/18 22:00 22:58 06:00 WBC RBC Hgb Hct MCV MCH MCHC RDW Plt Count Neut % (Auto) Lymph % (Auto) [place] % (Auto) Eos % (Auto) Baso % (Auto) Lymph # (Auto) [place] # (Auto) Eos # (Auto) Baso # (Auto) Absolute Neuts (auto) PT INR APTT pCO2 pO2 HCO3 ABG pH ABG Total CO2 ABG O2 Saturation ABG Base Excess ABG Potassium VBG pH VBG pCO2 VBG HCO3 VBG Total CO2 VBG O2 Sat (Calc) VBG Base Excess VBG Potassium Sodium 140 Chloride 100 Glucose Lactate FiO2 Crit Value Called To Crit Value Called By Blood Gas Notified Time Potassium 4.7 Carbon Dioxide 35 H Anion Gap 10 BUN 42 H Creatinine 2.1 H Est GFR ( Amer) 28 Est GFR (Non-Af Amer) 23 POC Glucose (mg/dL) 246 H Random Glucose 201 H Calcium 8.8 Phosphorus 4.5 Magnesium 1.8 Iron 43 L TIBC 362 % Saturation 12 L Ferritin 36.1 Total Bilirubin 0.6 AST 75 H D ALT 160 H Alkaline Phosphatase 70 Lactate Dehydrogenase Total Creatine Kinase Troponin I NT-Pro-B Natriuret Pep Total Protein 6.3 Albumin 3.3 Globulin 3.1 Albumin/Globulin Ratio 1.1 Vitamin B12 692 Folate > 20.0 Arterial Blood Potassium Venous Blood Potassium Blood Type Antibody Screen Crossmatch BBK History Checked 12/22/18 12/22/18 12/22/18 06:00 07:17 17:00 WBC 5.2 D 6.9 D RBC 2.61 L 2.60 L Hgb 7.7 L 7.6 L Hct 25.4 L 25.0 L MCV 97.3 96.2 MCH 29.5 29.2 MCHC 30.3 L 30.4 L RDW 24.0 H 24.0 H Plt Count 179 189 Neut % (Auto) 64.0 Lymph % (Auto) 13.8 L [place] % (Auto) 16.3 H Eos % (Auto) 5.5 H Baso % (Auto) 0.4 Lymph # (Auto) 1.0 L [place] # (Auto) 1.1 H Eos # (Auto) 0.4 Baso # (Auto) 0.03 Absolute Neuts (auto) 4.38 PT INR APTT pCO2 pO2 HCO3 ABG pH ABG Total CO2 ABG O2 Saturation ABG Base Excess ABG Potassium VBG pH VBG pCO2 VBG HCO3 VBG Total CO2 VBG O2 Sat (Calc) VBG Base Excess VBG Potassium Sodium Chloride Glucose Lactate FiO2 Crit Value Called To Crit Value Called By Blood Gas Notified Time Potassium Carbon Dioxide Anion Gap BUN Creatinine Est GFR ( Amer) Est GFR (Non-Af Amer) POC Glucose (mg/dL) 195 H Random Glucose Calcium Phosphorus Magnesium Iron TIBC % Saturation Ferritin Total Bilirubin AST ALT Alkaline Phosphatase Lactate Dehydrogenase Total Creatine Kinase Troponin I NT-Pro-B Natriuret Pep Total Protein Albumin Globulin Albumin/Globulin Ratio Vitamin B12 Folate Arterial Blood Potassium Venous Blood Potassium Blood Type Antibody Screen Crossmatch BBK History Checked 12/22/18 17:40 WBC RBC Hgb Hct MCV MCH MCHC RDW Plt Count Neut % (Auto) Lymph % (Auto) [place] % (Auto) Eos % (Auto) Baso % (Auto) Lymph # (Auto) [place] # (Auto) Eos # (Auto) Baso # (Auto) Absolute Neuts (auto) PT INR APTT pCO2 85 H* pO2 25.0 L* HCO3 39.9 H ABG pH 7.28 L ABG Total CO2 42.5 H ABG O2 Saturation 35.6 L ABG Base Excess 9.6 H ABG Potassium 4.8 VBG pH VBG pCO2 VBG HCO3 VBG Total CO2 VBG O2 Sat (Calc) VBG Base Excess VBG Potassium Sodium 144.0 Chloride 105.0 Glucose 215 H Lactate 1.5 FiO2 28.0 Crit Value Called To bin Delcid Crit Value Called By García Blood Gas Notified Time 1748 Potassium Carbon Dioxide Anion Gap BUN Creatinine Est GFR ( Amer) Est GFR (Non-Af Amer) POC Glucose (mg/dL) Random Glucose Calcium Phosphorus Magnesium Iron TIBC % Saturation Ferritin Total Bilirubin AST ALT Alkaline Phosphatase Lactate Dehydrogenase Total Creatine Kinase Troponin I NT-Pro-B Natriuret Pep Total Protein Albumin Globulin Albumin/Globulin Ratio Vitamin B12 Folate Arterial Blood Potassium 4.8 Venous Blood Potassium Blood Type Antibody Screen Crossmatch BBK History Checked Attending/Attestation - Attestation I have personally seen and examined this patient.: Yes I have fully participated in the care of the patient.: Yes I have reviewed all pertinent clinical information: Yes Notes (Text): 12/22/18 18:38 Seen and examined. Discussed with resident. A&P as above. ? GIB 2/2 hemorrhoids. CHF. CKD. Cardiology and GI on consult.
[2018-12-21] MEDS ORDERED: Dextrose 50% SYRINGE Inj (50 ml) IV PRN (22:04)
[2018-12-21 23:26] LABS: TOTAL IRON BINDING CAPACITY 362 ug/dL (265-497)
[2018-12-21] MEDS: Sildenafil 20 MG TAB PO SCH (23:40)
[2018-12-21 23:44] LABS: % IRON SATURATION 12 % (20-55); IRON 43 ug/dL (45-180)
[2018-12-22] MEDS: Albuterol-Ipratrop 3 mg / 0.5 (3 ml) UD IH SCH ×4 (01:06→20:30)
--- NOTE | 2018-12-22 04:50 | HP ---
DATE OF EXAM: 12/21/2018 HISTORY OF PRESENT ILLNESS: The patient is 73 years old, who was seen in the office two days ago for a followup after she had a prolonged hospitalization for congestive heart failure and pneumonia. She had blood work done, received blood work today, has hemoglobin in office of 6.6, so she was advised to come to emergency room for blood transfusion. The patient does complain of feeling fatigued, tired and short of breath. No history of fever or chills. No rectal bleeding, no hemoptysis, no hematemesis the patient states since she was discharged; however, intake is . No chest pain. PAST MEDICAL HISTORY: Significant for; 1. Chronic AFib. 2. Coronary artery disease. 3. Pulmonary hypertension. 4. COPD. 5. Chronic kidney disease. 6. Noninsulin-dependent diabetes. 7. Diabetic neuropathy. 8. Chronic bilateral knee osteoarthritis. SOCIAL HISTORY: She has a history of heavy smoking in the past, but quit. She used to socially drink. She is single, lives with her daughter who is very supportive. ALLERGIES SHE IS ALLERGIC TO SHELLFISH. HOME MEDICATIONS: She is on Lasix 40 mg twice a day, spironolactone 25 mg daily, Revatio 20 mg twice a day, Singulair 10 mg daily, folic acid 1 mg daily, Lipitor 40 mg daily, Eliquis 2.5 mg twice a day, metolazone 5 mg every other day, Lyrica 75 mg twice a day, metoprolol 50 mg twice a day, lisinopril 20 mg daily, ferrous sulfate and nebulizer treatment. PHYSICAL EXAMINATION GENERAL: Seems clear, mild shortness of breath. VITAL SIGNS: She is afebrile. Pulse 60, respirations 16, blood pressure 136/62. LUNGS: Bilateral fair airflow, decreased at bases. HEART: S1 and S2 audible. Irregular rate controlled. ABDOMEN: Soft. Nontender. No rebound. No guarding. NEUROLOGIC: She is awake and alert, able to communicate. LABORATORY DATA: WBC 6.7, hemoglobin 6.7, hematocrit 23.1, platelet 275. PT 11.53, INR 2.11. Chemistry; sodium 141, potassium 4.3, chloride 97, CO2 of 26, BUN 43, creatinine 2.1, blood sugar of 226. AST 140, ALT 191, LDH is 1265. ASSESSMENT: 1. Symptomatic anemia. 2. Congestive heart failure. 3. History of chronic obstructive pulmonary disease. 4. Pulmonary hypertension. 5. Noninsulin-dependent diabetes. PLAN: This patient will be admitted in ICU. We will give 2 packs RBC's, get GI consult. We will keep her on diuretics, resume her usual medications. We will follow up CBC and CMP in the a.m. Laurel Schultz MD
[2018-12-22] MEDS ORDERED: Pantoprazole 40 mg EC Tab PO SCH (06:00)
[2018-12-22 06:46] LABS: ALB/GLOB RATIO 1.1 (1.1-1.8); ALBUMIN 3.3 g/dL (3.0-4.8); ALT/SGPT 160 U/L (7-56); AST/SGOT 75 U/L (14-36); BLOOD UREA NITROGEN 42 mg/dL (7-21); CALCIUM 8.8 mg/dL (8.4-10.5); GFR NON-AFRICAN AMERICAN 23
[2018-12-22 07:02] LABS: HEMOGLOBIN 7.7 g/dL (12.0-16.0); MEAN CELL VOLUME 97.3 fl (80.0-105.0); MEAN CORPUSCULAR HEMOGLOBIN 29.5 pg (25.0-35.0); MEAN CORPUSCULAR HGB CONC 30.3 g/dl (31.0-37.0); PLATELET COUNT 179 10^3/uL (120.0-450.0); RBC 2.61 10^6/uL (3.5-6.1); WHITE BLOOD COUNT 5.2 10^3/uL (4.5-11.0)
[2018-12-22] MEDS ORDERED: Insulin Lispro (humaLOG) MEDIUM Coverage SC SCH (07:30)
[2018-12-22] MEDS: Insulin Lispro (humaLOG) MEDIUM Coverage SC SCH ×4 (09:00→21:53)
[2018-12-22] MEDS: Oxycodone/Acetaminophen 5/325 mg Tab PO SCH ×5 (09:46→20:12)
[2018-12-22] MEDS: Sildenafil 20 MG TAB PO SCH ×2 (09:47→21:09)
--- NOTE | 2018-12-22 10:49 | CARD ---
APPROVED REPORT Date of service: 12/21/2018 EKG Measurement Heart [id number] <Conclusion> Sinus tachycardia with occasional premature atrial complexes Left axis deviation Right bundle branch block Inferior infarct, age undetermined ST abnormality, consider lateral ischemia Abnormal ECG
--- NOTE | 2018-12-22 11:12 | CP.CCUPN ---
<Maxi Bain - Last Filed: 12/22/18 11:57> CCU Subjective - Physician Review Events Since Last Encounter (Free Text): 12/22/18 11:09 no acute events overnight Subjective (Free Text): 12/22/18 11:10 pt seen and examined this morning, NAD, denies chest pain CCU Objective - Vital Signs / Intake & Output Vital Signs (Last 4 hours): Vital Signs Pulse Resp BP Pulse Ox 12/22/18 09:51 101 H 18 191/74 H 90 L 12/22/18 09:50 103 H 21 88 L 12/22/18 09:46 98 H 160/84 H 12/22/18 09:45 98 H 160/84 H 12/22/18 09:40 87 18 94 L 12/22/18 09:30 77 19 95 12/22/18 09:20 88 17 95 12/22/18 09:10 90 18 95 12/22/18 09:00 93 H 23 93 L 12/22/18 08:50 89 95 12/22/18 08:40 87 17 96 12/22/18 08:30 94 H 21 92 L 12/22/18 08:20 89 25 H 97 12/22/18 08:10 60 17 100 12/22/18 08:00 76 17 160/84 H 97 12/22/18 07:50 66 19 97 12/22/18 07:40 68 19 98 12/22/18 07:30 77 17 97 12/22/18 07:20 79 19 96 12/22/18 07:10 76 16 98 Intake and Output (Last 8hrs): Intake & Output 12/21/18 12/22/18 12/22/18 22:59 06:59 14:59 Intake Total 0 1125 Output Total 800 Balance 0 325 Weight 212 lb Intake: Oral 250 Blood Product 0 875 Apheresis Rbc Cp2d As3 Lr 0 275 1st Unit [id number] Output: Urine 800 Urethral (Millard) 800 Other: Voiding Method Indwelling Catheter - Physical Exam Physical Exam Limitations: Negative for: Altered Mental Status Head: Positive for: Atraumatic, Normocephalic Pupils: Positive for: PERRL Extroacular Muscles: Positive for: EOMI Conjunctiva: Positive for: Normal Mouth: Positive for: Moist Mucous Membranes Neck: Positive for: Normal Range of Motion Respiratory/Chest: Positive for: Clear to Auscultation, Good Air Exchange, Respiratory Distress. Negative for: Accessory Muscle Use, Wheezes, Decreased Breath Sounds Cardiovascular: Positive for: Regular Rate and Rhythm, Normal S1, S2 Abdomen: Negative for: Tenderness, Distention Neurological: Positive for: GCS=15, CN II-XII Intact, Speech Normal Skin: Positive for: Warm, Dry, Rashes Psychiatric: Positive for: Alert, Oriented x 3 - Medications Active Medications: Active Medications Generic Name Dose Route Start Last Admin Trade Name Freq PRN Reason Stop Dose Admin Albuterol/Ipratropium 3 ml 12/22/18 02:00 12/22/18 08:00 Duoneb 3 Mg/0.5 Mg (3 Ml) Ud IH 3 ml [id number] LINDA Administration Albuterol/Ipratropium 3 ml 12/21/18 20:25 Duoneb 3 Mg/0.5 Mg (3 Ml) Ud IH Q2H PRN Shortness of Breath Atorvastatin Calcium 40 mg 12/22/18 22:00 Lipitor PO HS LINDA Dextrose 0 ml 12/21/18 22:04 Dextrose 50% Inj IV STAT PRN Hypoglycemia Protocol Protocol Folic Acid 1 mg 12/22/18 10:00 12/22/18 09:47 Folic Acid PO 1 mg DAILY LINDA Administration Furosemide 20 mg 12/22/18 10:00 12/22/18 09:45 Lasix IVP 20 mg Q12 LINDA Administration Dextrose 1,000 mls @ 0 mls/hr 12/21/18 22:04 Dextrose 5% In Water 1000 Ml IV .Q0M PRN Hypoglycemia Protocol Protocol Per Protocol Insulin Human Lispro 0 units 12/22/18 07:30 12/22/18 09:00 Humalog Med SC 1 u ACHS LINDA Administration Protocol Insulin Human Lispro 0 units 12/22/18 07:30 Humalog Med SC ACHS LINDA Protocol Lisinopril 20 mg 12/22/18 10:00 12/22/18 09:45 Zestril PO 20 mg DAILY LINDA Administration Metoprolol Tartrate 50 mg 12/22/18 10:00 12/22/18 09:46 Lopressor PO 50 mg BID LINDA Administration Montelukast Sodium 10 mg 12/21/18 22:00 12/21/18 22:31 Singulair PO 10 mg HS LINDA Administration Oxycodone/Acetaminophen 1 tab 12/22/18 10:00 12/22/18 09:56 Percocet 5/325 Mg Tab PO 12/25/18 10:01 Not Given TID LINDA Pantoprazole Sodium 40 mg 12/22/18 06:00 12/22/18 05:08 Protonix Ec Tab PO 40 mg 0600 LINDA Administration Pregabalin 75 mg 12/21/18 23:45 12/22/18 09:46 Lyrica PO 75 mg BID LINDA Administration Sildenafil Citrate 20 mg 12/21/18 22:00 12/22/18 09:47 Revatio PO 20 mg Q12 LINDA Administration - Patient Studies Lab Studies: Lab Studies 12/22/18 12/22/18 12/22/18 Range/Units 07:17 06:00 06:00 WBC 5.2 D (4.5-11.0) 10^3/uL RBC 2.61 L (3.5-6.1) 10^6/uL Hgb 7.7 L (12.0-16.0) g/dL Hct 25.4 L (36.0-48.0) % MCV 97.3 (80.0-105.0) fl MCH 29.5 (25.0-35.0) pg MCHC 30.3 L (31.0-37.0) g/dl RDW 24.0 H (11.5-14.5) % Plt Count 179 (120.0-450.0) 10^3/uL Neut % (Auto) (50.0-68.0) % Lymph % (Auto) (22.0-35.0) % [place] % (Auto) (1.0-6.0) % Eos % (Auto) (1.5-5.0) % Baso % (Auto) (0.0-3.0) % Lymph # (Auto) (1.2-3.4) [place] # (Auto) (0.1-0.6) Eos # (Auto) (0.0-0.7) Baso # (Auto) (0.0-2.0) K/mm3 Absolute Neuts (auto) (1.4-6.5) PT (9.4-12.5) SECONDS INR APTT (26.9-38.3) Seconds pO2 (30-55) mm/Hg VBG pH (7.32-7.43) VBG pCO2 (40-60) VBG HCO3 (21-28) mmol/l VBG Total CO2 (22-28) mmol.L VBG O2 Sat (Calc) (40-65) % VBG Base Excess (0.0-2.0) mmol/L VBG Potassium (3.6-5.2) mmol/L Sodium 140 (132-148) mmol/L Chloride 100 (98-107) mmol/L Glucose (65-105) mg/dl Lactate (0.7-2.1) mmol/L FiO2 % Potassium 4.7 (3.6-5.0) mmol/L Carbon Dioxide 35 H (21-33) mmol/L Anion Gap 10 (10-20) BUN 42 H (7-21) mg/dL Creatinine 2.1 H (0.7-1.2) mg/dl Est GFR ( Amer) 28 Est GFR (Non-Af Amer) 23 POC Glucose (mg/dL) 195 H (65-110) mg/dL Random Glucose 201 H (70-110) mg/dL Calcium 8.8 (8.4-10.5) mg/dL Phosphorus 4.5 (2.5-4.5) mg/dL Magnesium 1.8 (1.7-2.2) mg/dL Iron (45-180) ug/dL TIBC (265-497) ug/dL % Saturation (20-55) % Total Bilirubin 0.6 (0.2-1.3) mg/dL AST 75 H D (14-36) U/L ALT 160 H (7-56) U/L Alkaline Phosphatase 70 (38-126) U/L Lactate Dehydrogenase (333-699) U/L Total Creatine Kinase (35-230) U/L Troponin I ng/mL NT-Pro-B Natriuret Pep (0-450) pg/mL Total Protein 6.3 (5.8-8.3) g/dL Albumin 3.3 (3.0-4.8) g/dL Globulin 3.1 gm/dL Albumin/Globulin Ratio 1.1 (1.1-1.8) Venous Blood Potassium (3.6-5.2) mmol/L Blood Type Antibody Screen Crossmatch BBK History Checked 12/21/18 12/21/18 12/21/18 Range/Units 22:58 22:00 19:10 WBC (4.5-11.0) 10^3/uL RBC (3.5-6.1) 10^6/uL Hgb (12.0-16.0) g/dL Hct (36.0-48.0) % MCV (80.0-105.0) fl MCH (25.0-35.0) pg MCHC (31.0-37.0) g/dl RDW (11.5-14.5) % Plt Count (120.0-450.0) 10^3/uL Neut % (Auto) (50.0-68.0) % Lymph % (Auto) (22.0-35.0) % [place] % (Auto) (1.0-6.0) % Eos % (Auto) (1.5-5.0) % Baso % (Auto) (0.0-3.0) % Lymph # (Auto) (1.2-3.4) [place] # (Auto) (0.1-0.6) Eos # (Auto) (0.0-0.7) Baso # (Auto) (0.0-2.0) K/mm3 Absolute Neuts (auto) (1.4-6.5) PT 24.3 H (9.4-12.5) SECONDS INR 2.19 APTT 32.4 (26.9-38.3) Seconds pO2 (30-55) mm/Hg VBG pH (7.32-7.43) VBG pCO2 (40-60) VBG HCO3 (21-28) mmol/l VBG Total CO2 (22-28) mmol.L VBG O2 Sat (Calc) (40-65) % VBG Base Excess (0.0-2.0) mmol/L VBG Potassium (3.6-5.2) mmol/L Sodium (132-148) mmol/L Chloride (98-107) mmol/L Glucose (65-105) mg/dl Lactate (0.7-2.1) mmol/L FiO2 % Potassium (3.6-5.0) mmol/L Carbon Dioxide (21-33) mmol/L Anion Gap (10-20) BUN (7-21) mg/dL Creatinine (0.7-1.2) mg/dl Est GFR ( Amer) Est GFR (Non-Af Amer) POC Glucose (mg/dL) 246 H (65-110) mg/dL Random Glucose (70-110) mg/dL Calcium (8.4-10.5) mg/dL Phosphorus (2.5-4.5) mg/dL Magnesium (1.7-2.2) mg/dL Iron 43 L (45-180) ug/dL TIBC 362 (265-497) ug/dL % Saturation 12 L (20-55) % Total Bilirubin (0.2-1.3) mg/dL AST (14-36) U/L ALT (7-56) U/L Alkaline Phosphatase (38-126) U/L Lactate Dehydrogenase (333-699) U/L Total Creatine Kinase (35-230) U/L Troponin I ng/mL NT-Pro-B Natriuret Pep (0-450) pg/mL Total Protein (5.8-8.3) g/dL Albumin (3.0-4.8) g/dL Globulin gm/dL Albumin/Globulin Ratio (1.1-1.8) Venous Blood Potassium (3.6-5.2) mmol/L Blood Type Antibody Screen Crossmatch BBK History Checked 12/21/18 12/21/18 12/21/18 Range/Units 19:10 19:10 19:10 WBC 6.7 (4.5-11.0) 10^3/uL RBC 2.35 L (3.5-6.1) 10^6/uL Hgb 6.7 L* D (12.0-16.0) g/dL Hct 23.1 L (36.0-48.0) % MCV 98.3 D (80.0-105.0) fl MCH 28.5 (25.0-35.0) pg MCHC 29.0 L (31.0-37.0) g/dl RDW 28.5 H (11.5-14.5) % Plt Count 275 (120.0-450.0) 10^3/uL Neut % (Auto) 60.2 (50.0-68.0) % Lymph % (Auto) 17.0 L (22.0-35.0) % [place] % (Auto) 19.4 H (1.0-6.0) % Eos % (Auto) 2.8 (1.5-5.0) % Baso % (Auto) 0.6 (0.0-3.0) % Lymph # (Auto) 1.1 L (1.2-3.4) [place] # (Auto) 1.3 H (0.1-0.6) Eos # (Auto) 0.2 (0.0-0.7) Baso # (Auto) 0.04 (0.0-2.0) K/mm3 Absolute Neuts (auto) 4.04 (1.4-6.5) PT (9.4-12.5) SECONDS INR APTT (26.9-38.3) Seconds pO2 32 (30-55) mm/Hg VBG pH 7.56 H (7.32-7.43) VBG pCO2 41.0 (40-60) VBG HCO3 36.7 H (21-28) mmol/l VBG Total CO2 38.0 H (22-28) mmol.L VBG O2 Sat (Calc) 66.7 H (40-65) % VBG Base Excess 13.2 H (0.0-2.0) mmol/L VBG Potassium 4.3 (3.6-5.2) mmol/L Sodium 141 140.0 (132-148) mmol/L Chloride 97 L 103.0 (98-107) mmol/L Glucose 224 H (65-105) mg/dl Lactate 1.7 (0.7-2.1) mmol/L FiO2 21.0 % Potassium 4.3 (3.6-5.0) mmol/L Carbon Dioxide 36 H (21-33) mmol/L Anion Gap 12 (10-20) BUN 43 H (7-21) mg/dL Creatinine 2.1 H (0.7-1.2) mg/dl Est GFR ( Amer) 28 Est GFR (Non-Af Amer) 23 POC Glucose (mg/dL) (65-110) mg/dL Random Glucose 226 H (70-110) mg/dL Calcium 9.2 (8.4-10.5) mg/dL Phosphorus (2.5-4.5) mg/dL Magnesium (1.7-2.2) mg/dL Iron (45-180) ug/dL TIBC (265-497) ug/dL % Saturation (20-55) % Total Bilirubin 0.7 (0.2-1.3) mg/dL AST 104 H D (14-36) U/L ALT 191 H (7-56) U/L Alkaline Phosphatase 91 (38-126) U/L Lactate Dehydrogenase 1265 H (333-699) U/L Total Creatine Kinase 151 (35-230) U/L Troponin I 0.03 D ng/mL NT-Pro-B Natriuret Pep 5690 H (0-450) pg/mL Total Protein 7.1 (5.8-8.3) g/dL Albumin 3.7 (3.0-4.8) g/dL Globulin 3.4 gm/dL Albumin/Globulin Ratio 1.1 (1.1-1.8) Venous Blood Potassium 4.3 (3.6-5.2) mmol/L Blood Type Antibody Screen Crossmatch BBK History Checked 12/21/18 12/21/18 Range/Units 19:00 18:58 WBC (4.5-11.0) 10^3/uL RBC (3.5-6.1) 10^6/uL Hgb (12.0-16.0) g/dL Hct (36.0-48.0) % MCV (80.0-105.0) fl MCH (25.0-35.0) pg MCHC (31.0-37.0) g/dl RDW (11.5-14.5) % Plt Count (120.0-450.0) 10^3/uL Neut % (Auto) (50.0-68.0) % Lymph % (Auto) (22.0-35.0) % [place] % (Auto) (1.0-6.0) % Eos % (Auto) (1.5-5.0) % Baso % (Auto) (0.0-3.0) % Lymph # (Auto) (1.2-3.4) [place] # (Auto) (0.1-0.6) Eos # (Auto) (0.0-0.7) Baso # (Auto) (0.0-2.0) K/mm3 Absolute Neuts (auto) (1.4-6.5) PT (9.4-12.5) SECONDS INR APTT (26.9-38.3) Seconds pO2 (30-55) mm/Hg VBG pH (7.32-7.43) VBG pCO2 (40-60) VBG HCO3 (21-28) mmol/l VBG Total CO2 (22-28) mmol.L VBG O2 Sat (Calc) (40-65) % VBG Base Excess (0.0-2.0) mmol/L VBG Potassium (3.6-5.2) mmol/L Sodium (132-148) mmol/L Chloride (98-107) mmol/L Glucose (65-105) mg/dl Lactate (0.7-2.1) mmol/L FiO2 % Potassium (3.6-5.0) mmol/L Carbon Dioxide (21-33) mmol/L Anion Gap (10-20) BUN (7-21) mg/dL Creatinine (0.7-1.2) mg/dl Est GFR ( Amer) Est GFR (Non-Af Amer) POC Glucose (mg/dL) 278 H (65-110) mg/dL Random Glucose (70-110) mg/dL Calcium (8.4-10.5) mg/dL Phosphorus (2.5-4.5) mg/dL Magnesium (1.7-2.2) mg/dL Iron (45-180) ug/dL TIBC (265-497) ug/dL % Saturation (20-55) % Total Bilirubin (0.2-1.3) mg/dL AST (14-36) U/L ALT (7-56) U/L Alkaline Phosphatase (38-126) U/L Lactate Dehydrogenase (333-699) U/L Total Creatine Kinase (35-230) U/L Troponin I ng/mL NT-Pro-B Natriuret Pep (0-450) pg/mL Total Protein (5.8-8.3) g/dL Albumin (3.0-4.8) g/dL Globulin gm/dL Albumin/Globulin Ratio (1.1-1.8) Venous Blood Potassium (3.6-5.2) mmol/L Blood Type O POSITIVE Antibody Screen Negative Crossmatch See Detail BBK History Checked Patient has bt Laboratory Results - last 24 hr 12/21/18 12/21/18 12/21/18 18:58 19:00 19:10 WBC RBC Hgb Hct MCV MCH MCHC RDW Plt Count Neut % (Auto) Lymph % (Auto) [place] % (Auto) Eos % (Auto) Baso % (Auto) Lymph # (Auto) [place] # (Auto) Eos # (Auto) Baso # (Auto) Absolute Neuts (auto) PT INR APTT pO2 32 VBG pH 7.56 H VBG pCO2 41.0 VBG HCO3 36.7 H VBG Total CO2 38.0 H VBG O2 Sat (Calc) 66.7 H VBG Base Excess 13.2 H VBG Potassium 4.3 Sodium 140.0 Chloride 103.0 Glucose 224 H Lactate 1.7 FiO2 21.0 Potassium Carbon Dioxide Anion Gap BUN Creatinine Est GFR ( Amer) Est GFR (Non-Af Amer) POC Glucose (mg/dL) 278 H Random Glucose Calcium Phosphorus Magnesium Iron TIBC % Saturation Total Bilirubin AST ALT Alkaline Phosphatase Lactate Dehydrogenase Total Creatine Kinase Troponin I NT-Pro-B Natriuret Pep Total Protein Albumin Globulin Albumin/Globulin Ratio Venous Blood Potassium 4.3 Blood Type O POSITIVE Antibody Screen Negative Crossmatch See Detail BBK History Checked Patient has bt 12/21/18 12/21/18 12/21/18 19:10 19:10 19:10 WBC 6.7 RBC 2.35 L Hgb 6.7 L* D Hct 23.1 L MCV 98.3 D MCH 28.5 MCHC 29.0 L RDW 28.5 H Plt Count 275 Neut % (Auto) 60.2 Lymph % (Auto) 17.0 L [place] % (Auto) 19.4 H Eos % (Auto) 2.8 Baso % (Auto) 0.6 Lymph # (Auto) 1.1 L [place] # (Auto) 1.3 H Eos # (Auto) 0.2 Baso # (Auto) 0.04 Absolute Neuts (auto) 4.04 PT 24.3 H INR 2.19 APTT 32.4 pO2 VBG pH VBG pCO2 VBG HCO3 VBG Total CO2 VBG O2 Sat (Calc) VBG Base Excess VBG Potassium Sodium 141 Chloride 97 L Glucose Lactate FiO2 Potassium 4.3 Carbon Dioxide 36 H Anion Gap 12 BUN 43 H Creatinine 2.1 H Est GFR ( Amer) 28 Est GFR (Non-Af Amer) 23 POC Glucose (mg/dL) Random Glucose 226 H Calcium 9.2 Phosphorus Magnesium Iron TIBC % Saturation Total Bilirubin 0.7 AST 104 H D ALT 191 H Alkaline Phosphatase 91 Lactate Dehydrogenase 1265 H Total Creatine Kinase 151 Troponin I 0.03 D NT-Pro-B Natriuret Pep 5690 H Total Protein 7.1 Albumin 3.7 Globulin 3.4 Albumin/Globulin Ratio 1.1 Venous Blood Potassium Blood Type Antibody Screen Crossmatch BBK History Checked 12/21/18 12/21/18 12/22/18 22:00 22:58 06:00 WBC RBC Hgb Hct MCV MCH MCHC RDW Plt Count Neut % (Auto) Lymph % (Auto) [place] % (Auto) Eos % (Auto) Baso % (Auto) Lymph # (Auto) [place] # (Auto) Eos # (Auto) Baso # (Auto) Absolute Neuts (auto) PT INR APTT pO2 VBG pH VBG pCO2 VBG HCO3 VBG Total CO2 VBG O2 Sat (Calc) VBG Base Excess VBG Potassium Sodium 140 Chloride 100 Glucose Lactate FiO2 Potassium 4.7 Carbon Dioxide 35 H Anion Gap 10 BUN 42 H Creatinine 2.1 H Est GFR ( Amer) 28 Est GFR (Non-Af Amer) 23 POC Glucose (mg/dL) 246 H Random Glucose 201 H Calcium 8.8 Phosphorus 4.5 Magnesium 1.8 Iron 43 L TIBC 362 % Saturation 12 L Total Bilirubin 0.6 AST 75 H D ALT 160 H Alkaline Phosphatase 70 Lactate Dehydrogenase Total Creatine Kinase Troponin I NT-Pro-B Natriuret Pep Total Protein 6.3 Albumin 3.3 Globulin 3.1 Albumin/Globulin Ratio 1.1 Venous Blood Potassium Blood Type Antibody Screen Crossmatch BBK History Checked 12/22/18 12/22/18 06:00 07:17 WBC 5.2 D RBC 2.61 L Hgb 7.7 L Hct 25.4 L MCV 97.3 MCH 29.5 MCHC 30.3 L RDW 24.0 H Plt Count 179 Neut % (Auto) Lymph % (Auto) [place] % (Auto) Eos % (Auto) Baso % (Auto) Lymph # (Auto) [place] # (Auto) Eos # (Auto) Baso # (Auto) Absolute Neuts (auto) PT INR APTT pO2 VBG pH VBG pCO2 VBG HCO3 VBG Total CO2 VBG O2 Sat (Calc) VBG Base Excess VBG Potassium Sodium Chloride Glucose Lactate FiO2 Potassium Carbon Dioxide Anion Gap BUN Creatinine Est GFR ( Amer) Est GFR (Non-Af Amer) POC Glucose (mg/dL) 195 H Random Glucose Calcium Phosphorus Magnesium Iron TIBC % Saturation Total Bilirubin AST ALT Alkaline Phosphatase Lactate Dehydrogenase Total Creatine Kinase Troponin I NT-Pro-B Natriuret Pep Total Protein Albumin Globulin Albumin/Globulin Ratio Venous Blood Potassium Blood Type Antibody Screen Crossmatch BBK History Checked EKG/Cardiology Studies: Cardiology / EKG Studies 12/21/18 18:48 EKG [ELECTROCARDIOGRAM] Stat Comment: Reason For Exam: weakness Fingerstick Blood Sugar Results: 195 Critical Care Progress Note - Nutrition Nutrition: Nutrition Category Date Time Status Liquid Diet [DIET] Diets 12/21/18 Dinner Ordered Assessment/Plan - Assessment and Plan (Free Text) Assessment: Pt is a 73 yo female with a PMH of COPD/ home O2, Afib/ Eliquis, diastolic CHF, pulm HTN, CKD stage I/II, CAD s/p open heart surgery and pacemaker placement, DM who presented to the ED complaining of SOB and acute drop in Hgb while at her primary care physician's office Plan: Neuro - monitor neuro status Cardio - Lasix 20mg - Cardio consulted, recs appreciated Pulm - duonebs - maintain O2>90 - O2 NC cont - BiPAP HS - Singular and Revatio home doses GI - protonix Nephro/ - insert millard to monitor I/O - cont diuresis w/ Lasix while monitoring renal function - cont home Aldactone Heme/ Onc - will transfuse PRN - will trend CBC ID - no signs of infection - maintain normothermia Endo - ISS - accuchecks ACHS Dispo: pt to be transferred to tele today Pt seen, examined, assessment and plan discussed with Dr Jack Bain PGY1 - Date & Time Date: 12/22/18 Time: 11:13 <Vitaliy Santiago - Last Filed: 12/22/18 16:51> CCU Objective - Vital Signs / Intake & Output Vital Signs (Last 4 hours): Vital Signs Pulse Resp BP Pulse Ox 12/22/18 16:00 67 17 145/54 L 99 12/22/18 15:50 68 15 100 12/22/18 15:40 66 14 99 12/22/18 15:30 64 12 99 12/22/18 15:20 63 13 100 12/22/18 15:10 62 18 100 12/22/18 15:00 133/51 L 12/22/18 14:59 62 13 100 12/22/18 14:50 60 19 100 12/22/18 14:40 65 12 100 12/22/18 14:30 63 15 100 12/22/18 14:20 62 14 99 12/22/18 14:10 61 13 98 12/22/18 14:00 129/54 L 12/22/18 13:59 59 L 12 98 12/22/18 13:50 66 12 99 12/22/18 13:40 68 15 99 12/22/18 13:30 63 13 98 12/22/18 13:20 61 13 98 12/22/18 13:10 72 17 98 12/22/18 13:00 76 19 172/64 H 97 Intake and Output (Last 8hrs): Intake & Output 12/22/18 12/22/18 12/22/18 06:59 14:59 22:59 Intake Total 1125 Output Total 800 Balance 325 Intake: Oral 250 Blood Product 875 Apheresis Rbc Cp2d As3 Lr 275 1st Unit [id number] Output: Urine 800 Urethral (Millard) 800 Other: Voiding Method Indwelling Catheter - Medications Active Medications: Active Medications Generic Name Dose Route Start Last Admin Trade Name Freq PRN Reason Stop Dose Admin Albuterol/Ipratropium 3 ml 12/22/18 02:00 12/22/18 08:00 Duoneb 3 Mg/0.5 Mg (3 Ml) Ud IH 3 ml [id number] LINDA Administration Albuterol/Ipratropium 3 ml 12/21/18 20:25 12/22/18 12:09 Duoneb 3 Mg/0.5 Mg (3 Ml) Ud IH 3 ml Q2H PRN Administration Shortness of Breath Atorvastatin Calcium 40 mg 12/22/18 22:00 Lipitor PO HS LINDA Dextrose 0 ml 12/21/18 22:04 Dextrose 50% Inj IV STAT PRN Hypoglycemia Protocol Protocol Folic Acid 1 mg 12/22/18 10:00 12/22/18 09:47 Folic Acid PO 1 mg DAILY LINDA Administration Furosemide 20 mg 12/22/18 10:00 12/22/18 09:45 Lasix IVP 20 mg Q12 LINDA Administration Dextrose 1,000 mls @ 0 mls/hr 12/21/18 22:04 Dextrose 5% In Water 1000 Ml IV .Q0M PRN Hypoglycemia Protocol Protocol Per Protocol Insulin Human Lispro 0 units 12/22/18 07:30 12/22/18 13:00 Humalog Med SC 5 u ACHS LINDA Administration Protocol Insulin Human Lispro 0 units 12/22/18 07:30 Humalog Med SC ACHS LINDA Protocol Lisinopril 20 mg 12/22/18 10:00 12/22/18 09:45 Zestril PO 20 mg DAILY LINDA Administration Metoprolol Tartrate 50 mg 12/22/18 10:00 12/22/18 09:46 Lopressor PO 50 mg BID LINDA Administration Montelukast Sodium 10 mg 12/21/18 22:00 12/21/18 22:31 Singulair PO 10 mg HS LINDA Administration Oxycodone/Acetaminophen 1 tab 12/22/18 10:00 12/22/18 15:14 Percocet 5/325 Mg Tab PO 12/25/18 10:01 Not Given TID LINDA Pantoprazole Sodium 40 mg 12/22/18 11:45 12/22/18 15:24 Protonix Inj IVP 40 mg Q12 LINDA Administration Pregabalin 75 mg 12/21/18 23:45 12/22/18 09:46 Lyrica PO 75 mg BID LINDA Administration Sildenafil Citrate 20 mg 12/21/18 22:00 12/22/18 09:47 Revatio PO 20 mg Q12 LINDA Administration - Patient Studies Lab Studies: Lab Studies 12/22/18 12/22/18 12/22/18 Range/Units 07:17 06:00 06:00 WBC 5.2 D (4.5-11.0) 10^3/uL RBC 2.61 L (3.5-6.1) 10^6/uL Hgb 7.7 L (12.0-16.0) g/dL Hct 25.4 L (36.0-48.0) % MCV 97.3 (80.0-105.0) fl MCH 29.5 (25.0-35.0) pg MCHC 30.3 L (31.0-37.0) g/dl RDW 24.0 H (11.5-14.5) % Plt Count 179 (120.0-450.0) 10^3/uL Neut % (Auto) (50.0-68.0) % Lymph % (Auto) (22.0-35.0) % [place] % (Auto) (1.0-6.0) % Eos % (Auto) (1.5-5.0) % Baso % (Auto) (0.0-3.0) % Lymph # (Auto) (1.2-3.4) [place] # (Auto) (0.1-0.6) Eos # (Auto) (0.0-0.7) Baso # (Auto) (0.0-2.0) K/mm3 Absolute Neuts (auto) (1.4-6.5) PT (9.4-12.5) SECONDS INR APTT (26.9-38.3) Seconds pO2 (30-55) mm/Hg VBG pH (7.32-7.43) VBG pCO2 (40-60) VBG HCO3 (21-28) mmol/l VBG Total CO2 (22-28) mmol.L VBG O2 Sat (Calc) (40-65) % VBG Base Excess (0.0-2.0) mmol/L VBG Potassium (3.6-5.2) mmol/L Sodium 140 (132-148) mmol/L Chloride 100 (98-107) mmol/L Glucose (65-105) mg/dl Lactate (0.7-2.1) mmol/L FiO2 % Potassium 4.7 (3.6-5.0) mmol/L Carbon Dioxide 35 H (21-33) mmol/L Anion Gap 10 (10-20) BUN 42 H (7-21) mg/dL Creatinine 2.1 H (0.7-1.2) mg/dl Est GFR ( Amer) 28 Est GFR (Non-Af Amer) 23 POC Glucose (mg/dL) 195 H (65-110) mg/dL Random Glucose 201 H (70-110) mg/dL Calcium 8.8 (8.4-10.5) mg/dL Phosphorus 4.5 (2.5-4.5) mg/dL Magnesium 1.8 (1.7-2.2) mg/dL Iron (45-180) ug/dL TIBC (265-497) ug/dL % Saturation (20-55) % Ferritin 36.1 ng/mL Total Bilirubin 0.6 (0.2-1.3) mg/dL AST 75 H D (14-36) U/L ALT 160 H (7-56) U/L Alkaline Phosphatase 70 (38-126) U/L Lactate Dehydrogenase (333-699) U/L Total Creatine Kinase (35-230) U/L Troponin I ng/mL NT-Pro-B Natriuret Pep (0-450) pg/mL Total Protein 6.3 (5.8-8.3) g/dL Albumin 3.3 (3.0-4.8) g/dL Globulin 3.1 gm/dL Albumin/Globulin Ratio 1.1 (1.1-1.8) Vitamin B12 692 (239-931) pg/mL Folate > 20.0 ng/mL Venous Blood Potassium (3.6-5.2) mmol/L Blood Type Antibody Screen Crossmatch BBK History Checked 12/21/18 12/21/18 12/21/18 Range/Units 22:58 22:00 19:10 WBC (4.5-11.0) 10^3/uL RBC (3.5-6.1) 10^6/uL Hgb (12.0-16.0) g/dL Hct (36.0-48.0) % MCV (80.0-105.0) fl MCH (25.0-35.0) pg MCHC (31.0-37.0) g/dl RDW (11.5-14.5) % Plt Count (120.0-450.0) 10^3/uL Neut % (Auto) (50.0-68.0) % Lymph % (Auto) (22.0-35.0) % [place] % (Auto) (1.0-6.0) % Eos % (Auto) (1.5-5.0) % Baso % (Auto) (0.0-3.0) % Lymph # (Auto) (1.2-3.4) [place] # (Auto) (0.1-0.6) Eos # (Auto) (0.0-0.7) Baso # (Auto) (0.0-2.0) K/mm3 Absolute Neuts (auto) (1.4-6.5) PT 24.3 H (9.4-12.5) SECONDS INR 2.19 APTT 32.4 (26.9-38.3) Seconds pO2 (30-55) mm/Hg VBG pH (7.32-7.43) VBG pCO2 (40-60) VBG HCO3 (21-28) mmol/l VBG Total CO2 (22-28) mmol.L VBG O2 Sat (Calc) (40-65) % VBG Base Excess (0.0-2.0) mmol/L VBG Potassium (3.6-5.2) mmol/L Sodium (132-148) mmol/L Chloride (98-107) mmol/L Glucose (65-105) mg/dl Lactate (0.7-2.1) mmol/L FiO2 % Potassium (3.6-5.0) mmol/L Carbon Dioxide (21-33) mmol/L Anion Gap (10-20) BUN (7-21) mg/dL Creatinine (0.7-1.2) mg/dl Est GFR ( Amer) Est GFR (Non-Af Amer) POC Glucose (mg/dL) 246 H (65-110) mg/dL Random Glucose (70-110) mg/dL Calcium (8.4-10.5) mg/dL Phosphorus (2.5-4.5) mg/dL Magnesium (1.7-2.2) mg/dL Iron 43 L (45-180) ug/dL TIBC 362 (265-497) ug/dL % Saturation 12 L (20-55) % Ferritin ng/mL Total Bilirubin (0.2-1.3) mg/dL AST (14-36) U/L ALT (7-56) U/L Alkaline Phosphatase (38-126) U/L Lactate Dehydrogenase (333-699) U/L Total Creatine Kinase (35-230) U/L Troponin I ng/mL NT-Pro-B Natriuret Pep (0-450) pg/mL Total Protein (5.8-8.3) g/dL Albumin (3.0-4.8) g/dL Globulin gm/dL Albumin/Globulin Ratio (1.1-1.8) Vitamin B12 (239-931) pg/mL Folate ng/mL Venous Blood Potassium (3.6-5.2) mmol/L Blood Type Antibody Screen Crossmatch BBK History Checked 12/21/18 12/21/18 12/21/18 Range/Units 19:10 19:10 19:10 WBC 6.7 (4.5-11.0) 10^3/uL RBC 2.35 L (3.5-6.1) 10^6/uL Hgb 6.7 L* D (12.0-16.0) g/dL Hct 23.1 L (36.0-48.0) % MCV 98.3 D (80.0-105.0) fl MCH 28.5 (25.0-35.0) pg MCHC 29.0 L (31.0-37.0) g/dl RDW 28.5 H (11.5-14.5) % Plt Count 275 (120.0-450.0) 10^3/uL Neut % (Auto) 60.2 (50.0-68.0) % Lymph % (Auto) 17.0 L (22.0-35.0) % [place] % (Auto) 19.4 H (1.0-6.0) % Eos % (Auto) 2.8 (1.5-5.0) % Baso % (Auto) 0.6 (0.0-3.0) % Lymph # (Auto) 1.1 L (1.2-3.4) [place] # (Auto) 1.3 H (0.1-0.6) Eos # (Auto) 0.2 (0.0-0.7) Baso # (Auto) 0.04 (0.0-2.0) K/mm3 Absolute Neuts (auto) 4.04 (1.4-6.5) PT (9.4-12.5) SECONDS INR APTT (26.9-38.3) Seconds pO2 32 (30-55) mm/Hg VBG pH 7.56 H (7.32-7.43) VBG pCO2 41.0 (40-60) VBG HCO3 36.7 H (21-28) mmol/l VBG Total CO2 38.0 H (22-28) mmol.L VBG O2 Sat (Calc) 66.7 H (40-65) % VBG Base Excess 13.2 H (0.0-2.0) mmol/L VBG Potassium 4.3 (3.6-5.2) mmol/L Sodium 141 140.0 (132-148) mmol/L Chloride 97 L 103.0 (98-107) mmol/L Glucose 224 H (65-105) mg/dl Lactate 1.7 (0.7-2.1) mmol/L FiO2 21.0 % Potassium 4.3 (3.6-5.0) mmol/L Carbon Dioxide 36 H (21-33) mmol/L Anion Gap 12 (10-20) BUN 43 H (7-21) mg/dL Creatinine 2.1 H (0.7-1.2) mg/dl Est GFR ( Amer) 28 Est GFR (Non-Af Amer) 23 POC Glucose (mg/dL) (65-110) mg/dL Random Glucose 226 H (70-110) mg/dL Calcium 9.2 (8.4-10.5) mg/dL Phosphorus (2.5-4.5) mg/dL Magnesium (1.7-2.2) mg/dL Iron (45-180) ug/dL TIBC (265-497) ug/dL % Saturation (20-55) % Ferritin ng/mL Total Bilirubin 0.7 (0.2-1.3) mg/dL AST 104 H D (14-36) U/L ALT 191 H (7-56) U/L Alkaline Phosphatase 91 (38-126) U/L Lactate Dehydrogenase 1265 H (333-699) U/L Total Creatine Kinase 151 (35-230) U/L Troponin I 0.03 D ng/mL NT-Pro-B Natriuret Pep 5690 H (0-450) pg/mL Total Protein 7.1 (5.8-8.3) g/dL Albumin 3.7 (3.0-4.8) g/dL Globulin 3.4 gm/dL Albumin/Globulin Ratio 1.1 (1.1-1.8) Vitamin B12 (239-931) pg/mL Folate ng/mL Venous Blood Potassium 4.3 (3.6-5.2) mmol/L Blood Type Antibody Screen Crossmatch BBK History Checked 12/21/18 12/21/18 Range/Units 19:00 18:58 WBC (4.5-11.0) 10^3/uL RBC (3.5-6.1) 10^6/uL Hgb (12.0-16.0) g/dL Hct (36.0-48.0) % MCV (80.0-105.0) fl MCH (25.0-35.0) pg MCHC (31.0-37.0) g/dl RDW (11.5-14.5) % Plt Count (120.0-450.0) 10^3/uL Neut % (Auto) (50.0-68.0) % Lymph % (Auto) (22.0-35.0) % [place] % (Auto) (1.0-6.0) % Eos % (Auto) (1.5-5.0) % Baso % (Auto) (0.0-3.0) % Lymph # (Auto) (1.2-3.4) [place] # (Auto) (0.1-0.6) Eos # (Auto) (0.0-0.7) Baso # (Auto) (0.0-2.0) K/mm3 Absolute Neuts (auto) (1.4-6.5) PT (9.4-12.5) SECONDS INR APTT (26.9-38.3) Seconds pO2 (30-55) mm/Hg VBG pH (7.32-7.43) VBG pCO2 (40-60) VBG HCO3 (21-28) mmol/l VBG Total CO2 (22-28) mmol.L VBG O2 Sat (Calc) (40-65) % VBG Base Excess (0.0-2.0) mmol/L VBG Potassium (3.6-5.2) mmol/L Sodium (132-148) mmol/L Chloride (98-107) mmol/L Glucose (65-105) mg/dl Lactate (0.7-2.1) mmol/L FiO2 % Potassium (3.6-5.0) mmol/L Carbon Dioxide (21-33) mmol/L Anion Gap (10-20) BUN (7-21) mg/dL Creatinine (0.7-1.2) mg/dl Est GFR ( Amer) Est GFR (Non-Af Amer) POC Glucose (mg/dL) 278 H (65-110) mg/dL Random Glucose (70-110) mg/dL Calcium (8.4-10.5) mg/dL Phosphorus (2.5-4.5) mg/dL Magnesium (1.7-2.2) mg/dL Iron (45-180) ug/dL TIBC (265-497) ug/dL % Saturation (20-55) % Ferritin ng/mL Total Bilirubin (0.2-1.3) mg/dL AST (14-36) U/L ALT (7-56) U/L Alkaline Phosphatase (38-126) U/L Lactate Dehydrogenase (333-699) U/L Total Creatine Kinase (35-230) U/L Troponin I ng/mL NT-Pro-B Natriuret Pep (0-450) pg/mL Total Protein (5.8-8.3) g/dL Albumin (3.0-4.8) g/dL Globulin gm/dL Albumin/Globulin Ratio (1.1-1.8) Vitamin B12 (239-931) pg/mL Folate ng/mL Venous Blood Potassium (3.6-5.2) mmol/L Blood Type O POSITIVE Antibody Screen Negative Crossmatch See Detail BBK History Checked Patient has bt Laboratory Results - last 24 hr 12/21/18 12/21/18 12/21/18 18:58 19:00 19:10 WBC RBC Hgb Hct MCV MCH MCHC RDW Plt Count Neut % (Auto) Lymph % (Auto) [place] % (Auto) Eos % (Auto) Baso % (Auto) Lymph # (Auto) [place] # (Auto) Eos # (Auto) Baso # (Auto) Absolute Neuts (auto) PT INR APTT pO2 32 VBG pH 7.56 H VBG pCO2 41.0 VBG HCO3 36.7 H VBG Total CO2 38.0 H VBG O2 Sat (Calc) 66.7 H VBG Base Excess 13.2 H VBG Potassium 4.3 Sodium 140.0 Chloride 103.0 Glucose 224 H Lactate 1.7 FiO2 21.0 Potassium Carbon Dioxide Anion Gap BUN Creatinine Est GFR ( Amer) Est GFR (Non-Af Amer) POC Glucose (mg/dL) 278 H Random Glucose Calcium Phosphorus Magnesium Iron TIBC % Saturation Ferritin Total Bilirubin AST ALT Alkaline Phosphatase Lactate Dehydrogenase Total Creatine Kinase Troponin I NT-Pro-B Natriuret Pep Total Protein Albumin Globulin Albumin/Globulin Ratio Vitamin B12 Folate Venous Blood Potassium 4.3 Blood Type O POSITIVE Antibody Screen Negative Crossmatch See Detail BBK History Checked Patient has bt 12/21/18 12/21/18 12/21/18 19:10 19:10 19:10 WBC 6.7 RBC 2.35 L Hgb 6.7 L* D Hct 23.1 L MCV 98.3 D MCH 28.5 MCHC 29.0 L RDW 28.5 H Plt Count 275 Neut % (Auto) 60.2 Lymph % (Auto) 17.0 L [place] % (Auto) 19.4 H Eos % (Auto) 2.8 Baso % (Auto) 0.6 Lymph # (Auto) 1.1 L [place] # (Auto) 1.3 H Eos # (Auto) 0.2 Baso # (Auto) 0.04 Absolute Neuts (auto) 4.04 PT 24.3 H INR 2.19 APTT 32.4 pO2 VBG pH VBG pCO2 VBG HCO3 VBG Total CO2 VBG O2 Sat (Calc) VBG Base Excess VBG Potassium Sodium 141 Chloride 97 L Glucose Lactate FiO2 Potassium 4.3 Carbon Dioxide 36 H Anion Gap 12 BUN 43 H Creatinine 2.1 H Est GFR ( Amer) 28 Est GFR (Non-Af Amer) 23 POC Glucose (mg/dL) Random Glucose 226 H Calcium 9.2 Phosphorus Magnesium Iron TIBC % Saturation Ferritin Total Bilirubin 0.7 AST 104 H D ALT 191 H Alkaline Phosphatase 91 Lactate Dehydrogenase 1265 H Total Creatine Kinase 151 Troponin I 0.03 D NT-Pro-B Natriuret Pep 5690 H Total Protein 7.1 Albumin 3.7 Globulin 3.4 Albumin/Globulin Ratio 1.1 Vitamin B12 Folate Venous Blood Potassium Blood Type Antibody Screen Crossmatch BBK History Checked 12/21/18 12/21/18 12/22/18 22:00 22:58 06:00 WBC RBC Hgb Hct MCV MCH MCHC RDW Plt Count Neut % (Auto) Lymph % (Auto) [place] % (Auto) Eos % (Auto) Baso % (Auto) Lymph # (Auto) [place] # (Auto) Eos # (Auto) Baso # (Auto) Absolute Neuts (auto) PT INR APTT pO2 VBG pH VBG pCO2 VBG HCO3 VBG Total CO2 VBG O2 Sat (Calc) VBG Base Excess VBG Potassium Sodium 140 Chloride 100 Glucose Lactate FiO2 Potassium 4.7 Carbon Dioxide 35 H Anion Gap 10 BUN 42 H Creatinine 2.1 H Est GFR ( Amer) 28 Est GFR (Non-Af Amer) 23 POC Glucose (mg/dL) 246 H Random Glucose 201 H Calcium 8.8 Phosphorus 4.5 Magnesium 1.8 Iron 43 L TIBC 362 % Saturation 12 L Ferritin 36.1 Total Bilirubin 0.6 AST 75 H D ALT 160 H Alkaline Phosphatase 70 Lactate Dehydrogenase Total Creatine Kinase Troponin I NT-Pro-B Natriuret Pep Total Protein 6.3 Albumin 3.3 Globulin 3.1 Albumin/Globulin Ratio 1.1 Vitamin B12 692 Folate > 20.0 Venous Blood Potassium Blood Type Antibody Screen Crossmatch BBK History Checked 12/22/18 12/22/18 06:00 07:17 WBC 5.2 D RBC 2.61 L Hgb 7.7 L Hct 25.4 L MCV 97.3 MCH 29.5 MCHC 30.3 L RDW 24.0 H Plt Count 179 Neut % (Auto) Lymph % (Auto) [place] % (Auto) Eos % (Auto) Baso % (Auto) Lymph # (Auto) [place] # (Auto) Eos # (Auto) Baso # (Auto) Absolute Neuts (auto) PT INR APTT pO2 VBG pH VBG pCO2 VBG HCO3 VBG Total CO2 VBG O2 Sat (Calc) VBG Base Excess VBG Potassium Sodium Chloride Glucose Lactate FiO2 Potassium Carbon Dioxide Anion Gap BUN Creatinine Est GFR ( Amer) Est GFR (Non-Af Amer) POC Glucose (mg/dL) 195 H Random Glucose Calcium Phosphorus Magnesium Iron TIBC % Saturation Ferritin Total Bilirubin AST ALT Alkaline Phosphatase Lactate Dehydrogenase Total Creatine Kinase Troponin I NT-Pro-B Natriuret Pep Total Protein Albumin Globulin Albumin/Globulin Ratio Vitamin B12 Folate Venous Blood Potassium Blood Type Antibody Screen Crossmatch BBK History Checked Radiology Impressions: Radiology Impressions Chest X-Ray 12/21/18 18:49 IMPRESSION: No active disease. No significant interval change compared to the prior examination(s). EKG/Cardiology Studies: Cardiology / EKG Studies 12/21/18 18:48 EKG [ELECTROCARDIOGRAM] Stat Comment: Reason For Exam: weakness Critical Care Progress Note - Nutrition Nutrition: Nutrition Category Date Time Status Liquid Diet [DIET] Diets 12/21/18 Dinner Ordered Attending/Attestation - Attestation I have personally seen and examined this patient.: Yes I have fully participated in the care of the patient.: Yes I have reviewed all pertinent clinical information: Yes Notes (Text): 12/22/18 16:[address] Santiago note
--- NOTE | 2018-12-22 11:41 | CP.PCM.CON ---
<Sahara Ryan - Last Filed: 12/22/18 11:43> History of Present Illness - History of Present Illness History of Present Illness: GI Fellow PGY5 Consult Note Ms. Emerson is a 73 yr old female with a PMH of COPD on home O2, Afib on Eliquis, diastolic CHF, moderate pulmonary hypertension, moderate mitral regurgitation, moderate tricuspid regurgitation, chronic kidney disease stage I/II, CAD s/p open heart surgery and pacemaker placement, NIDDM who was sent to the ED by PCP with shortness of breath and acute drop in Hgb. Patient reports 3 days ago, she had bright red blood per rectum. Denies melena or hematemesis. Patient states that since then, she has not had any bloody BM or repeated episodes of BRBPR. She denies any recent fevers/chills, nausea/vomiting, diarrhea or chest pain. Her shortness of breath is not relieved by her breathing treatments at home. Pt's Hgb was 6.7 from 9.8 in 10/2018. ROS: A 12pt ROS of negative except as above. PMH:COPD, diastolic CHF, moderate pulmonary hypertension, moderate mitral regurgitation, moderate tricuspid regurgitation, chronic kidney disease, CAD s/p open heart surgery, NIDDM PSH: Hysterectomy, CABG, Pacemaker placement Social: denies ETOH, illicit drugs, and tobacco. Former heavy smoker FamHx: Denies colon cancer Past Patient History - Infectious Disease Hx of Infectious Diseases: None - Tetanus Immunizations Tetanus Immunization: Unknown - Past Medical History & Family History Past Medical History?: Yes - Past Social History Smoking Status: Never Smoked - CARDIAC Hx Cardiac Disorders: Yes Hx Congestive Heart Failure: Yes Hx Pacemaker: Yes - PULMONARY Hx Respiratory Disorders: Yes Hx Chronic Obstructive Pulmonary Disease (COPD): Yes - NEUROLOGICAL Hx Neurological Disorder: No - HEENT Hx HEENT Problems: Yes (WEARS RX GLASSES) - RENAL Hx Chronic Kidney Disease: Yes Hx Renal Failure: Yes - ENDOCRINE/METABOLIC Hx Endocrine Disorders: Yes Hx Diabetes Mellitus Type 2: Yes - HEMATOLOGICAL/ONCOLOGICAL Hx Blood Disorders: Yes Hx Anemia: Yes (IRON DEFICIENCY ANEMIA) - INTEGUMENTARY Hx Dermatological Problems: No - MUSCULOSKELETAL/RHEUMATOLOGICAL Hx Musculoskeletal Disorders: Yes Hx Arthritis: Yes (B/L knees) Hx Falls: No - GASTROINTESTINAL Hx Gastrointestinal Disorders: Yes (THORACENTESIS WITH 17OO CC OF FLUID REMOVED 06-27-16) - GENITOURINARY/GYNECOLOGICAL Hx Genitourinary Disorders: Yes (HYSTERECTOMY) - PSYCHIATRIC Hx Psychophysiologic Disorder: Yes (SMOKED CIGARETTES PPD . QUIT 15 YRS AGO) Hx Anxiety: Yes Hx Substance Use: No - SURGICAL HISTORY Hx Surgeries: Yes Hx Cardiac Catheterization: Yes Hx Hysterectomy: Yes Hx Open Heart Surgery: Yes (CABG, pacemaker) - ANESTHESIA Hx Anesthesia: Yes Hx Anesthesia Reactions: No Hx Malignant Hyperthermia: No Meds Allergies/Adverse Reactions: Allergies Allergy/AdvReac Type Severity Reaction Status Date / Time shellfish Allergy Mild ITCHING Uncoded 10/18/18 16:55 - Medications Medications: Current Medications Albuterol/Ipratropium (Duoneb 3 Mg/0.5 Mg (3 Ml) Ud) 3 ml IH [id number] [facility] Last Admin: 12/22/18 08:00 Dose: 3 ml Albuterol/Ipratropium (Duoneb 3 Mg/0.5 Mg (3 Ml) Ud) 3 ml IH Q2H PRN PRN Reason: Shortness of Breath Atorvastatin Calcium (Lipitor) 40 mg PO HS [facility] Dextrose (Dextrose 50% Inj) 0 ml IV STAT PRN; Protocol PRN Reason: Hypoglycemia Protocol Folic Acid (Folic Acid) 1 mg PO DAILY [facility] Last Admin: 12/22/18 09:47 Dose: 1 mg Furosemide (Lasix) 20 mg IVP Q12 [facility] Last Admin: 12/22/18 09:45 Dose: 20 mg Dextrose (Dextrose 5% In Water 1000 Ml) 1,000 mls @ 0 mls/hr IV .Q0M PRN; Protocol PRN Reason: Hypoglycemia Protocol Insulin Human Lispro (Humalog Med) 0 units [facility]; Protocol Last Admin: 12/22/18 09:00 Dose: 1 u Insulin Human Lispro (Humalog Med) 0 units [facility]; Protocol Lisinopril (Zestril) 20 mg PO DAILY [facility] Last Admin: 12/22/18 09:45 Dose: 20 mg Metoprolol Tartrate (Lopressor) 50 mg PO BID [facility] Last Admin: 12/22/18 09:46 Dose: 50 mg Montelukast Sodium (Singulair) 10 mg PO HS [facility] Last Admin: 12/21/18 22:31 Dose: 10 mg Oxycodone/Acetaminophen (Percocet 5/325 Mg Tab) 1 tab PO TID [facility] Stop: 12/25/18 10:01 Last Admin: 12/22/18 09:56 Dose: Not Given Pantoprazole Sodium (Protonix Inj) 40 mg IVP Q12 [facility] Pregabalin (Lyrica) 75 mg PO BID [facility] Last Admin: 12/22/18 09:46 Dose: 75 mg Sildenafil Citrate (Revatio) 20 mg PO Q12 [facility] Last Admin: 12/22/18 09:47 Dose: 20 mg Physical Exam - Constitutional Appears: Non-toxic, No Acute Distress - Head Exam Head Exam: ATRAUMATIC, NORMAL INSPECTION, NORMOCEPHALIC - Eye Exam Eye Exam: EOMI, Normal appearance, PERRL Pupil Exam: PERRL - ENT Exam ENT Exam: Mucous Membranes Moist, Normal Exam - Neck Exam Neck exam: Positive for: Normal Inspection - Respiratory Exam Respiratory Exam: Clear to Auscultation Bilateral, NORMAL BREATHING PATTERN - Cardiovascular Exam Cardiovascular Exam: Irregular Rhythm, +S1, +S2 - GI/Abdominal Exam GI & Abdominal Exam: Normal Bowel Sounds, Soft. absent: Distended, Tenderness - Rectal Exam Additional comments: Pt refused - Extremities Exam Extremities exam: Positive for: full ROM, normal inspection - Neurological Exam Neurological exam: Alert, Oriented x3 - Psychiatric Exam Psychiatric exam: Normal Affect, Normal Mood - Skin Skin Exam: Dry, Intact, Normal Color, Warm Results - Vital Signs Recent Vital Signs: Last Vital Signs Temp 98.3 F 12/22/18 01:36 Pulse 101 H 12/22/18 09:51 Resp 18 12/22/18 09:51 BP 191/74 H 12/22/18 09:51 Pulse Ox 90 L 12/22/18 09:51 - Labs Result Diagrams: 12/22/18 06:00 12/22/18 06:00 Labs: Laboratory Results - last 24 hr 12/21/18 12/21/18 12/21/18 18:58 19:00 19:10 WBC RBC Hgb Hct MCV MCH MCHC RDW Plt Count Neut % (Auto) Lymph % (Auto) [place] % (Auto) Eos % (Auto) Baso % (Auto) Lymph # (Auto) [place] # (Auto) Eos # (Auto) Baso # (Auto) Absolute Neuts (auto) PT INR APTT pO2 32 VBG pH 7.56 H VBG pCO2 41.0 VBG HCO3 36.7 H VBG Total CO2 38.0 H VBG O2 Sat (Calc) 66.7 H VBG Base Excess 13.2 H VBG Potassium 4.3 Sodium 140.0 Chloride 103.0 Glucose 224 H Lactate 1.7 FiO2 21.0 Potassium Carbon Dioxide Anion Gap BUN Creatinine Est GFR ( Amer) Est GFR (Non-Af Amer) POC Glucose (mg/dL) 278 H Random Glucose Calcium Phosphorus Magnesium Iron TIBC % Saturation Total Bilirubin AST ALT Alkaline Phosphatase Lactate Dehydrogenase Total Creatine Kinase Troponin I NT-Pro-B Natriuret Pep Total Protein Albumin Globulin Albumin/Globulin Ratio Venous Blood Potassium 4.3 Blood Type O POSITIVE Antibody Screen Negative Crossmatch See Detail BBK History Checked Patient has bt 12/21/18 12/21/18 12/21/18 19:10 19:10 19:10 WBC 6.7 RBC 2.35 L Hgb 6.7 L* D Hct 23.1 L MCV 98.3 D MCH 28.5 MCHC 29.0 L RDW 28.5 H Plt Count 275 Neut % (Auto) 60.2 Lymph % (Auto) 17.0 L [place] % (Auto) 19.4 H Eos % (Auto) 2.8 Baso % (Auto) 0.6 Lymph # (Auto) 1.1 L [place] # (Auto) 1.3 H Eos # (Auto) 0.2 Baso # (Auto) 0.04 Absolute Neuts (auto) 4.04 PT 24.3 H INR 2.19 APTT 32.4 pO2 VBG pH VBG pCO2 VBG HCO3 VBG Total CO2 VBG O2 Sat (Calc) VBG Base Excess VBG Potassium Sodium 141 Chloride 97 L Glucose Lactate FiO2 Potassium 4.3 Carbon Dioxide 36 H Anion Gap 12 BUN 43 H Creatinine 2.1 H Est GFR ( Amer) 28 Est GFR (Non-Af Amer) 23 POC Glucose (mg/dL) Random Glucose 226 H Calcium 9.2 Phosphorus Magnesium Iron TIBC % Saturation Total Bilirubin 0.7 AST 104 H D ALT 191 H Alkaline Phosphatase 91 Lactate Dehydrogenase 1265 H Total Creatine Kinase 151 Troponin I 0.03 D NT-Pro-B Natriuret Pep 5690 H Total Protein 7.1 Albumin 3.7 Globulin 3.4 Albumin/Globulin Ratio 1.1 Venous Blood Potassium Blood Type Antibody Screen Crossmatch BBK History Checked 12/21/18 12/21/1819 22:00 22:58 06:00 WBC RBC Hgb Hct MCV MCH MCHC RDW Plt Count Neut % (Auto) Lymph % (Auto) [place] % (Auto) Eos % (Auto) Baso % (Auto) Lymph # (Auto) [place] # (Auto) Eos # (Auto) Baso # (Auto) Absolute Neuts (auto) PT INR APTT pO2 VBG pH VBG pCO2 VBG HCO3 VBG Total CO2 VBG O2 Sat (Calc) VBG Base Excess VBG Potassium Sodium 140 Chloride 100 Glucose Lactate FiO2 Potassium 4.7 Carbon Dioxide 35 H Anion Gap 10 BUN 42 H Creatinine 2.1 H Est GFR ( Amer) 28 Est GFR (Non-Af Amer) 23 POC Glucose (mg/dL) 246 H Random Glucose 201 H Calcium 8.8 Phosphorus 4.5 Magnesium 1.8 Iron 43 L TIBC 362 % Saturation 12 L Total Bilirubin 0.6 AST 75 H D ALT 160 H Alkaline Phosphatase 70 Lactate Dehydrogenase Total Creatine Kinase Troponin I NT-Pro-B Natriuret Pep Total Protein 6.3 Albumin 3.3 Globulin 3.1 Albumin/Globulin Ratio 1.1 Venous Blood Potassium Blood Type Antibody Screen Crossmatch BBK History Checked 12/22/18 12/22/18 06:00 07:17 WBC 5.2 D RBC 2.61 L Hgb 7.7 L Hct 25.4 L MCV 97.3 MCH 29.5 MCHC 30.3 L RDW 24.0 H Plt Count 179 Neut % (Auto) Lymph % (Auto) [place] % (Auto) Eos % (Auto) Baso % (Auto) Lymph # (Auto) [place] # (Auto) Eos # (Auto) Baso # (Auto) Absolute Neuts (auto) PT INR APTT pO2 VBG pH VBG pCO2 VBG HCO3 VBG Total CO2 VBG O2 Sat (Calc) VBG Base Excess VBG Potassium Sodium Chloride Glucose Lactate FiO2 Potassium Carbon Dioxide Anion Gap BUN Creatinine Est GFR ( Amer) Est GFR (Non-Af Amer) POC Glucose (mg/dL) 195 H Random Glucose Calcium Phosphorus Magnesium Iron TIBC % Saturation Total Bilirubin AST ALT Alkaline Phosphatase Lactate Dehydrogenase Total Creatine Kinase Troponin I NT-Pro-B Natriuret Pep Total Protein Albumin Globulin Albumin/Globulin Ratio Venous Blood Potassium Blood Type Antibody Screen Crossmatch BBK History Checked Assessment & Plan - Assessment and Plan (Free Text) Assessment: 1. Acute Anemia 2. COPD 3. CHF 4. Afib on OAC 5. CAD s/p CABG/PPM -Pt with acute drop in Hgb from 11/05 -Pt transfused 3U PRBCs and did not respond appropriately -PPI BID -Clear liquid diet -Discussed with patient about rectal exam and pt refused, also discussed with patient about potential EGD/Colonoscopy and patient refusing all procedures and just want medical management with blood transfusions -Will continue to follow <Keegan Miranda V - Last Filed: 12/22/18 16:44> Meds - Medications Medications: Current Medications Albuterol/Ipratropium (Duoneb 3 Mg/0.5 Mg (3 Ml) Ud) 3 ml IH [id number] [facility] Last Admin: 12/22/18 08:00 Dose: 3 ml Albuterol/Ipratropium (Duoneb 3 Mg/0.5 Mg (3 Ml) Ud) 3 ml IH Q2H PRN PRN Reason: Shortness of Breath Last Admin: 12/22/18 12:09 Dose: 3 ml Atorvastatin Calcium (Lipitor) 40 mg PO [facility] Dextrose (Dextrose 50% Inj) 0 ml IV STAT PRN; Protocol PRN Reason: Hypoglycemia Protocol Folic Acid (Folic Acid) 1 mg PO DAILY [facility] Last Admin: 12/22/18 09:47 Dose: 1 mg Furosemide (Lasix) 20 mg IVP Q12 [facility] Last Admin: 12/22/18 09:45 Dose: 20 mg Dextrose (Dextrose 5% In Water 1000 Ml) 1,000 mls @ 0 mls/hr IV .Q0M PRN; Protocol PRN Reason: Hypoglycemia Protocol Insulin Human Lispro (Humalog Med) 0 units [facility]; Protocol Last Admin: 12/22/18 13:00 Dose: 5 u Insulin Human Lispro (Humalog Med) 0 units [facility]; Protocol Lisinopril (Zestril) 20 mg PO DAILY [facility] Last Admin: 12/22/18 09:45 Dose: 20 mg Metoprolol Tartrate (Lopressor) 50 mg PO BID [facility] Last Admin: 12/22/18 09:46 Dose: 50 mg Montelukast Sodium (Singulair) 10 mg PO HS [facility] Last Admin: 12/21/18 22:31 Dose: 10 mg Oxycodone/Acetaminophen (Percocet 5/325 Mg Tab) 1 tab PO TID [facility] Stop: 12/25/18 10:01 Last Admin: 12/22/18 15:14 Dose: Not Given Pantoprazole Sodium (Protonix Inj) 40 mg IVP Q12 [facility] Last Admin: 12/22/18 15:24 Dose: 40 mg Pregabalin (Lyrica) 75 mg PO BID [facility] Last Admin: 12/22/18 09:46 Dose: 75 mg Sildenafil Citrate (Revatio) 20 mg PO Q12 [facility] Last Admin: 12/22/18 09:47 Dose: 20 mg Results - Vital Signs Recent Vital Signs: Last Vital Signs Temp 98.3 F 12/22/18 01:36 Pulse 67 12/22/18 16:00 Resp 17 12/22/18 16:00 BP 145/54 L 12/22/18 16:00 Pulse Ox 99 12/22/18 16:00 - Labs Result Diagrams: 12/22/18 06:00 12/22/18 06:00 Labs: Laboratory Results - last 24 hr 12/21/18 12/21/18 12/21/18 18:58 19:00 19:10 WBC RBC Hgb Hct MCV MCH MCHC RDW Plt Count Neut % (Auto) Lymph % (Auto) [place] % (Auto) Eos % (Auto) Baso % (Auto) Lymph # (Auto) [place] # (Auto) Eos # (Auto) Baso # (Auto) Absolute Neuts (auto) PT INR APTT pO2 32 VBG pH 7.56 H VBG pCO2 41.0 VBG HCO3 36.7 H VBG Total CO2 38.0 H VBG O2 Sat (Calc) 66.7 H VBG Base Excess 13.2 H VBG Potassium 4.3 Sodium 140.0 Chloride 103.0 Glucose 224 H Lactate 1.7 FiO2 21.0 Potassium Carbon Dioxide Anion Gap BUN Creatinine Est GFR ( Amer) Est GFR (Non-Af Amer) POC Glucose (mg/dL) 278 H Random Glucose Calcium Phosphorus Magnesium Iron TIBC % Saturation Ferritin Total Bilirubin AST ALT Alkaline Phosphatase Lactate Dehydrogenase Total Creatine Kinase Troponin I NT-Pro-B Natriuret Pep Total Protein Albumin Globulin Albumin/Globulin Ratio Vitamin B12 Folate Venous Blood Potassium 4.3 Blood Type O POSITIVE Antibody Screen Negative Crossmatch See Detail BBK History Checked Patient has bt 12/21/18 12/21/18 12/21/18 19:10 19:10 19:10 WBC 6.7 RBC 2.35 L Hgb 6.7 L* D Hct 23.1 L MCV 98.3 D MCH 28.5 MCHC 29.0 L RDW 28.5 H Plt Count 275 Neut % (Auto) 60.2 Lymph % (Auto) 17.0 L [place] % (Auto) 19.4 H Eos % (Auto) 2.8 Baso % (Auto) 0.6 Lymph # (Auto) 1.1 L [place] # (Auto) 1.3 H Eos # (Auto) 0.2 Baso # (Auto) 0.04 Absolute Neuts (auto) 4.04 PT 24.3 H INR 2.19 APTT 32.4 pO2 VBG pH VBG pCO2 VBG HCO3 VBG Total CO2 VBG O2 Sat (Calc) VBG Base Excess VBG Potassium Sodium 141 Chloride 97 L Glucose Lactate FiO2 Potassium 4.3 Carbon Dioxide 36 H Anion Gap 12 BUN 43 H Creatinine 2.1 H Est GFR ( Amer) 28 Est GFR (Non-Af Amer) 23 POC Glucose (mg/dL) Random Glucose 226 H Calcium 9.2 Phosphorus Magnesium Iron TIBC % Saturation Ferritin Total Bilirubin 0.7 AST 104 H D ALT 191 H Alkaline Phosphatase 91 Lactate Dehydrogenase 1265 H Total Creatine Kinase 151 Troponin I 0.03 D NT-Pro-B Natriuret Pep 5690 H Total Protein 7.1 Albumin 3.7 Globulin 3.4 Albumin/Globulin Ratio 1.1 Vitamin B12 Folate Venous Blood Potassium Blood Type Antibody Screen Crossmatch BBK History Checked 12/21/18 12/21/18 12/22/18 22:00 22:58 06:00 WBC RBC Hgb Hct MCV MCH MCHC RDW Plt Count Neut % (Auto) Lymph % (Auto) [place] % (Auto) Eos % (Auto) Baso % (Auto) Lymph # (Auto) [place] # (Auto) Eos # (Auto) Baso # (Auto) Absolute Neuts (auto) PT INR APTT pO2 VBG pH VBG pCO2 VBG HCO3 VBG Total CO2 VBG O2 Sat (Calc) VBG Base Excess VBG Potassium Sodium 140 Chloride 100 Glucose Lactate FiO2 Potassium 4.7 Carbon Dioxide 35 H Anion Gap 10 BUN 42 H Creatinine 2.1 H Est GFR ( Amer) 28 Est GFR (Non-Af Amer) 23 POC Glucose (mg/dL) 246 H Random Glucose 201 H Calcium 8.8 Phosphorus 4.5 Magnesium 1.8 Iron 43 L TIBC 362 % Saturation 12 L Ferritin 36.1 Total Bilirubin 0.6 AST 75 H D ALT 160 H Alkaline Phosphatase 70 Lactate Dehydrogenase Total Creatine Kinase Troponin I NT-Pro-B Natriuret Pep Total Protein 6.3 Albumin 3.3 Globulin 3.1 Albumin/Globulin Ratio 1.1 Vitamin B12 692 Folate > 20.0 Venous Blood Potassium Blood Type Antibody Screen Crossmatch BBK History Checked 12/22/18 12/22/18 06:00 07:17 WBC 5.2 D RBC 2.61 L Hgb 7.7 L Hct 25.4 L MCV 97.3 MCH 29.5 MCHC 30.3 L RDW 24.0 H Plt Count 179 Neut % (Auto) Lymph % (Auto) [place] % (Auto) Eos % (Auto) Baso % (Auto) Lymph # (Auto) [place] # (Auto) Eos # (Auto) Baso # (Auto) Absolute Neuts (auto) PT INR APTT pO2 VBG pH VBG pCO2 VBG HCO3 VBG Total CO2 VBG O2 Sat (Calc) VBG Base Excess VBG Potassium Sodium Chloride Glucose Lactate FiO2 Potassium Carbon Dioxide Anion Gap BUN Creatinine Est GFR ( Amer) Est GFR (Non-Af Amer) POC Glucose (mg/dL) 195 H Random Glucose Calcium Phosphorus Magnesium Iron TIBC % Saturation Ferritin Total Bilirubin AST ALT Alkaline Phosphatase Lactate Dehydrogenase Total Creatine Kinase Troponin I NT-Pro-B Natriuret Pep Total Protein Albumin Globulin Albumin/Globulin Ratio Vitamin B12 Folate Venous Blood Potassium Blood Type Antibody Screen Crossmatch BBK History Checked Attending/Attestation - Attestation I have personally seen and examined this patient.: Yes I have fully participated in the care of the patient.: Yes I have reviewed all pertinent clinical information: Yes Notes (Text): This patient was seen and evaluated along with the GI fellow earlier today. This is an addendum to the consultation noted dictated by the fellow. Discussed with the staff in the ICU. Patient is admitted with a symptomatic severe anemia with a hemoglobin of 6.7. Transfused. Episode of rectal bleeding 3 days before. History of anemia significant drop from the last admission. Patient has been on Coumadin for chronic A. fib. Iron studies done earlier showed a transient saturation around the 12%. Anemia is probably multifactorial with a component of iron deficiency plus chronic kidney disease. Multiple comorbidities which include a COPD CHF pulmonary hypertension chronic A. fib diabetes mellitus neuropathy chronic kidney disease We will request CT of the abdomen and pelvis with p.o. contrast to further evaluate. Follow-up of the hemoglobin hematocrit. PPI Patient is now refusing endoscopy and colonoscopy evaluation Discussed with Dr. Schultz earlier 12/22/18 16:43
--- NOTE | 2018-12-22 11:48 | RAD ---
Date of service: 12/21/2018 HISTORY: Shortness of breath. COMPARISON: 10/31/2018. FINDINGS: LUNGS: No active pulmonary disease. PLEURA: No significant pleural effusion identified, no pneumothorax apparent. CARDIOVASCULAR: No atherosclerotic calcification present No radiographic findings to suggest acute or significant cardiovascular disease. Incidental Finding(s): Postoperative changes related to sternotomy. Position/ configuration of pacemaker OSSEOUS STRUCTURES: No significant abnormalities. VISUALIZED UPPER ABDOMEN: Normal. OTHER FINDINGS: None. IMPRESSION: No active disease. No significant interval change compared to the prior examination(s).
[2018-12-22] MEDS: Albuterol-Ipratrop 3 mg / 0.5 (3 ml) UD IH PRN (12:09)
[2018-12-22 12:29] LABS: FERRITIN 36.1 ng/mL
[2018-12-22 12:59] LABS: FOLATE > 20.0 ng/mL
[2018-12-22] MEDS ORDERED: Barium Sulfate Susp 2.1% w/v, 2.0% w/w 450 mL Bottle PO ONE (13:33)
--- NOTE | 2018-12-22 15:11 | CON ---
DATE OF CONSULTATION: 12/22/2018 HISTORY OF PRESENT ILLNESS: This is a 73-year-old lady with history of COPD, right ventricular failure, pulmonary hypertension secondary to left ventricular diastolic dysfunction and COPD, chronic atrial fibrillation, who presented to [facility] for hemoglobin of 6.6. She also reports some tiredness and fatigue over the course of last week. She does report some shortness of breath as well. However, no wheezing, no chest pain, no fever, no chills, no sweats, no nausea, no vomiting, and no diarrhea. She did have some bright red blood per rectum during her last hospitalization; however, did not have any signs of bleeding over the last week. PAST MEDICAL HISTORY: Atrial fibrillation, coronary artery disease, pulmonary hypertension, COPD, chronic kidney disease, diabetes mellitus type 2 with diabetic neuropathy, and chronic bilateral knee osteoarthritis. SOCIAL HISTORY: The patient is ex-smoker. She quit many years ago though. She used to drink alcohol socially. No illicit drug abuse. ALLERGIES: NKDA. HOWEVER, SHE IS ALLERGIC TO SHELLFISH. HOME MEDICATIONS: Lasix, spironolactone, Revatio, Singulair, folic acid, Lipitor, Eliquis, metolazone, Lyrica, metoprolol, lisinopril, ferrous sulfate, and nebulizer treatment. FAMILY HISTORY: Noncontributory. REVIEW OF SYSTEMS: Review of 12-organ systems other than mentioned in history of present illness is negative. PHYSICAL EXAMINATION: VITAL SIGNS: Blood pressure 140/64, heart rate 71, respiratory rate 17, oxygen saturation 97% on room air. The patient did receive 2 units of PRBC, to which she responded by increasing her hemoglobin level to 7.7 from 6.7. She is off BiPAP, and she is not in respiratory or otherwise distress. She did put out about 800 mL of urine overnight. She, however, had positive 325 mL over the last 24 hours. HEENT: ENT: Head and neck atraumatic. LUNGS: Clear to auscultation bilaterally. HEART: Regular rate and rhythm. S1 and S2 normal. ABDOMEN: Soft, nontender, nondistended. MUSCULOSKELETAL: No C/C/E. NEURO: The patient moves all extremities spontaneously. SKIN: Moist. PSYCH: The patient is alert, awake and oriented, not in respiratory or otherwise distress. LABORATORY DATA: Hemoglobin 7.7, WBC 5.2, platelet count 179. Sodium 140, potassium 4.7, chloride 100, carbon dioxide 35, BUN 42, creatinine 2.1 (stable), glucose 195, AST 75, ALT 160, total bilirubin 0.6, proBNP 5619, INR 2.19. ABG yesterday showed pH 7.56, lactic acid 1.7. HOSPITAL MEDICATIONS: Include DuoNeb every 6 hours, Lipitor, folic acid, Lasix 20 mg IV every 12 hours, regular insulin sliding scale medium protocol, lisinopril (by primary medical doctor), metoprolol, oxycodone, Protonix, Lyrica, and Revatio. Chest x-ray showed some bilateral vascular congestion, no distinct infiltrate. EKG showed no specific ischemic changes. ASSESSMENT AND PLAN: This is a 73-year-old lady with some cardiovascular and cardiopulmonary risk factors including chronic obstructive pulmonary disease, right ventricular failure, pulmonary hypertension due to diastolic left ventricular dysfunction and pulmonary disease, who presented with low hemoglobin level without signs of overt bleeding in the setting of iatrogenic coagulopathy. As the patient is hemodynamically and respiratory owen stable without massive bleeding and does not have any signs of supply/ demand, mismatch ischemia, I will defer to Cardiology and GI Service as to whether to reverse coagulopathy and timing thereof. Meanwhile, I would maintain hemoglobin level more than 7, and I would recommend that to be a threshold for the PRBC transfusion. I would avoid liberal transfusion in this patient with pulmonary hypertension and right ventricular failure. I would continue with conservative fluid management and fairly aggressive diuresis. I would be careful with pulmonary vasodilators as in the setting of left ventricular diastolic dysfunction they may worsen pulmonary vascular congestion. I would hold Revatio for now. At the present time, however, the patient is alert, awake, and oriented. No chest pain, hemodynamically and respiratory owen stable, doing very well off BiPAP, does not require noninvasive positive pressure ventilation for acute ventilatory support, however would benefit from nightly Bipap application for chronic c02 retention. I would recommend GI consult and Cardiology consult. No need for ICU monitoring at the present time. Okay to downgrade to telemetry. Please re-consult ICU if clinical situation changes including, but not limited to hypotension, respiratory distress, hypoxemia, inability to protect airways, and massive bleeding. ccm time 40 min Vitaliy Santiago MD [facility]
[2018-12-22 17:22] LABS: BASO # 0.03 K/mm3 (0.0-2.0); BASO % 0.4 % (0.0-3.0); EOS # 0.4 (0.0-0.7); EOS % 5.5 % (1.5-5.0); HEMOGLOBIN 7.6 g/dL (12.0-16.0); LYMPH % 13.8 % (22.0-35.0); MEAN CELL VOLUME 96.2 fl (80.0-105.0); MEAN CORPUSCULAR HEMOGLOBIN 29.2 pg (25.0-35.0); MEAN CORPUSCULAR HGB CONC 30.4 g/dl (31.0-37.0); MONO # 1.1 (0.1-0.6); MONO % 16.3 % (1.0-6.0); PLATELET COUNT 189 10^3/uL (120.0-450.0); WHITE BLOOD COUNT 6.9 10^3/uL (4.5-11.0)
--- NOTE | 2018-12-22 17:44 | CT ---
Date of service: 12/22/2018 PROCEDURE: CT Abdomen and Pelvis without intravenous contrast HISTORY: R/O retroperitoneal bleed Prior hysterectomy. COMPARISON: 10/24/2018. CT abdomen and pelvis. TECHNIQUE: Unenhanced. Neither IV nor oral contrast administered Radiation dose: Total exam DLP = 1016.70 mGy-cm. This CT exam was performed using one or more of the following dose reduction techniques: Automated exposure control, adjustment of the mA and/or kV according to patient size, and/or use of iterative reconstruction technique. FINDINGS: LOWER THORAX: Trace bilateral pleural effusions. Incompletely visualized cardiomegaly. Multi chamber enlargement, dense calcification mitral valve. LIVER: Unremarkable. No gross lesion or ductal dilatation. GALLBLADDER AND BILE DUCTS: Unremarkable. PANCREAS: Unremarkable. No gross lesion or ductal dilatation. SPLEEN: Unremarkable. ADRENALS: Unremarkable. No mass. KIDNEYS AND URETERS: Unremarkable. No hydronephrosis. No solid mass. VASCULATURE: Atherosclerotic calcification and mural plaque present. Findings are seen throughout the aorta BOWEL: Unremarkable. No obstruction. No gross mural thickening. APPENDIX: No abnormalities to suggest acute appendicitis. No right lower quadrant inflammatory processes identified. PERITONEUM: Unremarkable. No free fluid. No free air. LYMPH NODES: Unremarkable. No enlarged lymph nodes. BLADDER: Bladder wall thickening disproportionate to that expected in a decompressed urinary bladder. Benton catheter is in place. REPRODUCTIVE: Unremarkable. BONES: No acute fracture. OTHER FINDINGS: Periumbilical fat containing hernia. Progressive right flank cutaneous edema and subcutaneous anasarca. Dependent changes are also seen posteriorly at and beyond the midline. IMPRESSION: Evidence of cystitis a new finding compared to the prior study. Right flank edema. Dependent anasarca. No evidence of retroperitoneal or intraperitoneal hemorrhage/hematoma. Additional benign and/or incidental findings described above.
[2018-12-22 17:50] LABS: ARTERIAL BLOOD GAS HCO3 39.9 mmol/L (21-28); ARTERIAL BLOOD GAS O2 SAT 35.6 % (95-98); ARTERIAL BLOOD GAS PCO2 85 mm/Hg (35-45); ARTERIAL BLOOD GAS PH 7.28 (7.35-7.45); ARTERIAL BLOOD GAS TCO2 42.5 mmol.L (22-28)
--- NOTE | 2018-12-23 00:30 | PN ---
DATE: 12/22/2018 SUBJECTIVE: The patient is a 73-year-old who came after she was found to have low hemoglobin in office, received two blood transfusions. No active bleeding noted. No history of black stool. Complaining of shortness of breath. PHYSICAL EXAMINATION: VITAL SIGNS: She is afebrile, pulse 101, respirations 22, blood pressure 138/61. LUNGS: Bilateral fair airflow in the lung region; however, she has decreased breath sounds at the bases. HEART: S1 and S2 audible, rate controlled. ABDOMEN: Soft, nontender. No rebound, no guarding. NEUROLOGIC: She is awake and alert, able to communicate. LABORATORY DATA: WBC 6.9, hemoglobin 7.6, hematocrit 75, platelets of 181. PT 24.3, INR 2.19. Chemistry: Sodium 140, potassium 4.7, chloride 100, CO2 of 35, BUN 42, creatinine 2.1, blood sugar 195. AST 75, ALT 160. She had CT scan of the abdomen and pelvis done that showed cystitis, a new finding compared to previous study. Had chronic edema, dependent, anasarca. ASSESSMENT AND PLAN: 1. Symptomatic anemia, etiology unclear. 2. Congestive heart failure. 3. Coronary artery disease, status post angioplasty. 4. Pulmonary hypertension. 5. Chronic obstructive pulmonary disease. PLAN: Her anemia seems to be multifactorial including acute chronic kidney disease, chronic afib, on anticoagulant. We will give her one more blood transfusion, give her extra dose of Lasix. We will follow up her CBC and CMP in a.m. Will continue on clear liquid. She was offered to have endoscopy, colonoscopy which she refused. We will reach out to the family if they can talk to her; however, the patient is fully awake and alert and able to make her decisions. Laurel Schultz MD
--- NOTE | 2018-12-23 00:40 | CON ---
DATE: 12/22/2018 LOCATION: The patient is in CCU 129, bed 2. REASON FOR CONSULTATION: Severe anemia, coronary artery disease, history of CHF, COPD, and atrial fibrillation. HISTORY OF PRESENT ILLNESS: Patient was admitted with the history that she was feeling very weak, fatigue, tired, and shortness of breath on minimal exertion. Dr. Schultz did the blood work and was found to have a hemoglobin of 6.6. So, patient was admitted to the hospital. Denies chest pain, but off and on, she complains of shortness of breath. Patient is a known case of coronary artery disease. Patient had coronary artery bypass surgery on 06/11/2013 at [facility] where she was transferred from [facility] after acute MO. Patient has history of CHF, atrial fibrillation, COPD, sleep apnea, renal dysfunction, had pacemaker insertion. Patient off and on gets leg edema also. Patient's bypass which was done on 06/11/2013, was 4-vessel bypass LAI to LAD, saphenous vein graft, right coronary artery, saphenous vein graft to junction to diagonal 1 and obtuse marginal 1. Then, patient had a cath on 05/29/2014 and found to have saphenous vein graft to RCA was totally occluded. So, patient had angioplasty stent insertion in the king salmon RCA. At that time, ejection fraction was 65%. EDP was 18 to 20. Patient had echo on 09/06/2018, which showed LV size normal, mild LV ejection fraction normal 55% to 60%. Patient's systolic function of RV was mild to moderately reduced and patient was found to have [id number] pulmonary hypertension with RVSP of 67. Moderate tricuspid regurgitation. There were also aortic sclerosis /mild aortic stenosis. Mitral regurgitation was [id number] and mild mitral stenosis with mitral valve area of 1.9 cm2. PAST MEDICAL HISTORY: As mentioned before; coronary artery disease, CABG, right coronary artery angioplasty stent insertion, pulmonary hypertension, COPD, history of CHF, atrial fibrillation, diabetes mellitus, hypertension, renal dysfunction, chronic bilateral knee osteoarthritis, diabetic neuropathy. PERSONAL HISTORY: Patient used to smoke but she says stopped 17 years ago. Denies drinking. ALLERGIES: PATIENT IS ALLERGIC TO SHELLFISH. HOME MEDICATIONS: Patient was on Lasix 40 twice a day, spironolactone 25 daily, Revatio 20 mg twice a day, Singulair 10 mg daily, folic acid 1 mg daily, Lipitor 40 daily, Eliquis 2.5 mg twice a day, metolazone 5 mg every other day, Lyrica 75 mg twice a day, metoprolol 50 mg twice a day, lisinopril 20 mg daily, ferrous sulfate, and nebulizer treatment therapy. REVIEW OF SYSTEMS: All the systems reviewed, positive mentioned in the history others are negatives. PHYSICAL EXAMINATION VITAL SIGNS: Blood pressure 145/54, respirations 17, pulse 67, patient is afebrile. HEENT: Head is normocephalic. Eyes, pupils normal. Conjunctive pale. NECK: JVP low; carotids equal. THORAX: AP diameter normal. LUNGS: No significant rales. Few expiratory wheezing sounds. CARDIOVASCULAR: S1 and S2. ABDOMEN: No organomegaly. Bowel sounds normal. EXTREMITIES: Slight edema present, otherwise no clubbing, no cyanosis. LABORATORY DATA: WBC 5.2, hemoglobin initial 6.7 yesterday, today being more than 7.7; hematocrit 25.4; and platelets 179. Sodium 140, potassium 4.7, BUN 42, creatinine 2.1. Random sugar 195. Calcium, phosphorous, and magnesium normal. AST 75. ALT 160. Total protein and albumin normal. NT-proB natriuretic peptide 5690. Troponin negative. Chest x-ray, poor inspiration, however, vascular marking seem to be slightly prominent. EKG shows sinus tachycardia with PAC, left axis deviation, right bundle-branch block, possible old inferior infarct, SVT abnormality. DIAGNOSES: Severe anemia, congestive heart failure. Patient's right ventricular diastolic dysfunction, [id number] reduced and there is oskyliqv-mq-nnwwby pulmonary hypertension, but there is an element of right heart failure, chronic obstructive lung disease, noninsulin-dependent diabetes mellitus, atrial fibrillation, pacemaker, coronary artery disease, history of coronary artery bypass graft, history of stent insertion, king salmon right coronary artery disease, renal dysfunction, arthritis, history of hypertension, sleep apnea. PLAN: Blood transfusions. Patient already received Lasix 40 IV and then another 20 IV was given. Now, the patient is getting 20 IV every 12 hours, atorvastatin 40 p.o. daily, metoprolol 50 b.i.d., Lyrica 75 b.i.d., Protonix 40 every 12 hours, Revatio 20 mg every 12 hours, Singulair 10 mg daily, lisinopril 20 daily. Patient's Eliquis is on hold because of severe anemia. For the time being, we will increase Lasix to 40 IV b.i.d. and we will repeat chest x-ray in the morning and we will follow with you and follow up labs will be also followed. Sapna Saini MD
[2018-12-23] MEDS: Albuterol-Ipratrop 3 mg / 0.5 (3 ml) UD IH SCH ×5 (02:15→23:15)
[2018-12-23 06:25] LABS: BASO # 0.02 K/mm3 (0.0-2.0); BASO % 0.3 % (0.0-3.0); EOS # 0.4 (0.0-0.7); EOS % 5.8 % (1.5-5.0); HEMOGLOBIN 7.4 g/dL (12.0-16.0); LYMPH # 1.1 (1.2-3.4); LYMPH % 17.3 % (22.0-35.0); MEAN CELL VOLUME 96.6 fl (80.0-105.0); MEAN CORPUSCULAR HEMOGLOBIN 27.8 pg (25.0-35.0); MEAN CORPUSCULAR HGB CONC 28.8 g/dl (31.0-37.0); MONO # 0.9 (0.1-0.6); MONO % 13.9 % (1.0-6.0); RBC 2.66 10^6/uL (3.5-6.1); RED CELL DISTRIBUTION WIDTH 23.9 % (11.5-14.5); WHITE BLOOD COUNT 6.6 10^3/uL (4.5-11.0)
[2018-12-23 06:35] LABS: ALBUMIN 2.8 g/dL (3.0-4.8); CALCIUM 8.3 mg/dL (8.4-10.5)
--- NOTE | 2018-12-23 07:41 | CP.PCM.PN ---
<Leonides Benitez - Last Filed: 12/23/18 19:02> Subjective - Date & Time of Evaluation Date of Evaluation: 12/23/18 Time of Evaluation: 07:33 - Subjective Subjective: Leonides Benitez- Internal Medicine Resident- Progress Note on Behalf of Dr. Miranda Subjective: Patient seen and examined at bedside. No acute overnight events. States shortness of breath has improved relative to baseline. Admits to tolerating diet. Denies abdominal pain, n/v, diarrhea, and constipation. 12 point ROS negative except as indicated in the HPI Physical Examination: - Constitutional Appears: Non-toxic, No Acute Distress - Head Exam Head Exam: ATRAUMATIC, NORMAL INSPECTION, NORMOCEPHALIC - Eye Exam Eye Exam: EOMI, Normal appearance, PERRL - ENT Exam ENT Exam: Mucous Membranes Moist, Normal Exam - Neck Exam Neck exam: Positive for: Normal Inspection - Respiratory Exam Respiratory Exam: Clear to Auscultation Bilateral, NORMAL BREATHING PATTERN - Cardiovascular Exam Cardiovascular Exam: Irregular Rhythm, +S1, +S2 - GI/Abdominal Exam GI & Abdominal Exam: Normal Bowel Sounds, Soft. absent: Distended, Tenderness - Rectal Exam Additional comments: Pt refused - Extremities Exam Extremities exam: Positive for: full ROM, normal inspection - Neurological Exam Neurological exam: Alert, Oriented x3 - Psychiatric Exam Psychiatric exam: Normal Affect, Normal Mood - Skin Skin Exam: Dry, Intact, Normal Color, Warm Assessment and Plan: Ms. Emerson is a 73 yr old female with a PMH of COPD on home O2, Afib on Eliquis, diastolic CHF, moderate pulmonary hypertension, moderate mitral regurgitation, moderate tricuspid regurgitation, chronic kidney disease stage I/II, CAD s/p open heart surgery and pacemaker placement, NIDDM who was sent to the ED by PCP with shortness of breath and acute drop in Hgb. Anemia Elevated LFTs COPD HF Afib on OAC CAD s/p CABG/PPM -H&H stable 7.4 s/p 2 units total on 12/21 and 12/22 -Pt transfused 2U PRBCs and did not respond appropriately -continue protonix 40mg IV q12h -continue carb consistent diet -SHERIDAN, antimitochondrial, and anti-smooth muscle antibody ordered and pending -recommend abdominal ultrasound duplex -patient education provided on need for EGD/Colonoscopy. Patient continues to refuse all procedures at this time Patient seen, case discussed with, and plan approved by attending physician, Dr. Miranda. Objective - Vital Signs/Intake and Output Vital Signs (last 24 hours): Temp Pulse Resp BP Pulse Ox 98.5 F 60 12 122/46 L 98 12/23/18 00:49 12/23/18 06:00 12/23/18 06:00 12/23/18 05:00 12/23/18 06:00 Intake and Output: 12/23/18 12/23/18 06:59 18:59 Intake Total 350 Output Total 1500 Balance -1150 - Medications Medications: Current Medications Acetaminophen (Tylenol 325mg Tab) 650 mg PO Q6H PRN PRN Reason: Pain, Mild (1-3) Albuterol/Ipratropium (Duoneb 3 Mg/0.5 Mg (3 Ml) Ud) 3 ml IH [id number] [facility], [facility] Last Admin: 12/23/18 02:15 Dose: 3 ml Albuterol/Ipratropium (Duoneb 3 Mg/0.5 Mg (3 Ml) Ud) 3 ml IH Q2H PRN PRN Reason: Shortness of Breath Last Admin: 12/22/18 12:09 Dose: 3 ml Atorvastatin Calcium (Lipitor) 40 mg PO HS [facility] Last Admin: 12/22/18 21:09 Dose: 40 mg Dextrose (Dextrose 50% Inj) 0 ml IV STAT PRN; Protocol PRN Reason: Hypoglycemia Protocol Folic Acid (Folic Acid) 1 mg PO DAILY [facility] Last Admin: 12/22/18 09:47 Dose: 1 mg Furosemide (Lasix) 40 mg IV BID [facility] Last Admin: 12/22/18 19:35 Dose: Not Given Dextrose (Dextrose 5% In Water 1000 Ml) 1,000 mls @ 0 mls/hr IV .Q0M PRN; Protocol PRN Reason: Hypoglycemia Protocol Insulin Human Lispro (Humalog Med) 0 units SC ACHS [facility]; Protocol Last Admin: 12/22/18 21:53 Dose: Not Given Lisinopril (Zestril) 20 mg PO DAILY [facility] Last Admin: 12/22/18 09:45 Dose: 20 mg Metoprolol Tartrate (Lopressor) 50 mg PO BID [facility] Last Admin: 12/22/18 19:41 Dose: 50 mg Montelukast Sodium (Singulair) 10 mg PO HS [facility] Last Admin: 12/22/18 21:10 Dose: 10 mg Oxycodone/Acetaminophen (Percocet 5/325 Mg Tab) 1 tab PO TID [facility] Stop: 12/25/18 10:01 Last Admin: 12/22/18 20:12 Dose: 1 tab Pantoprazole Sodium (Protonix Inj) 40 mg IVP Q12 [facility] Last Admin: 12/22/18 21:09 Dose: 40 mg Pregabalin (Lyrica) 75 mg PO BID [facility] Last Admin: 12/22/18 19:42 Dose: 75 mg Sildenafil Citrate (Revatio) 20 mg PO Q12 [facility] Last Admin: 12/22/18 21:09 Dose: 20 mg - Labs Labs: 12/23/18 05:18 12/23/18 05:18 PT 24.3 SECONDS (9.4-12.5) H 12/21/18 19:10 INR 2.19 12/21/18 19:10 APTT 32.4 Seconds (26.9-38.3) 12/21/18 19:10 <Keegan Miranda V - Last Filed: 12/23/18 20:01> Objective - Vital Signs/Intake and Output Vital Signs (last 24 hours): Temp Pulse Resp BP Pulse Ox 98.2 F 85 16 148/60 90 L 12/23/18 16:26 12/23/18 19:20 12/23/18 19:20 12/23/18 19:00 12/23/18 19:20 Intake and Output: 12/23/18 12/24/18 18:59 06:59 Intake Total 300 Balance 300 - Medications Medications: Current Medications Acetaminophen (Tylenol 325mg Tab) 650 mg PO Q6H PRN PRN Reason: Pain, Mild (1-3) Last Admin: 12/23/18 10:32 Dose: 650 mg Albuterol/Ipratropium (Duoneb 3 Mg/0.5 Mg (3 Ml) Ud) 3 ml IH Q2H PRN PRN Reason: Shortness of Breath Last Admin: 12/23/18 12:41 Dose: 3 ml Albuterol/Ipratropium (Duoneb 3 Mg/0.5 Mg (3 Ml) Ud) 3 ml IH [id number] [facility] Last Admin: 05/06/19 17:06 Dose: 3 ml Atorvastatin Calcium (Lipitor) 40 mg PO HS [facility] Last Admin: 12/22/18 21:09 Dose: 40 mg Budesonide (Pulmicort Respules) 0.5 mg IH [id number] [facility] Dextrose (Dextrose 50% Inj) 0 ml IV STAT PRN; Protocol PRN Reason: Hypoglycemia Protocol Folic Acid (Folic Acid) 1 mg PO DAILY [facility] Last Admin: 12/23/18 09:59 Dose: 1 mg Furosemide (Lasix) 40 mg IV BID [facility] Last Admin: 12/23/18 18:59 Dose: 40 mg Dextrose (Dextrose 5% In Water 1000 Ml) 1,000 mls @ 0 mls/hr IV .Q0M PRN; Protocol PRN Reason: Hypoglycemia Protocol Azithromycin (Zithromax 500mg In Ns) 500 mg in 250 mls @ 167 mls/hr IVPB DAILY [facility]; Protocol Last Admin: 12/23/18 16:21 Dose: 167 mls/hr Ceftriaxone Sodium (Rocephin 1 Gram Ivpb) 1 gm in 100 mls @ 100 mls/hr IVPB DAILY [facility]; Protocol Last Admin: 12/23/18 16:16 Dose: 100 mls/hr Insulin Human Lispro (Humalog Med) 0 units SC ACHS [facility]; Protocol Last Admin: 12/23/18 19:01 Dose: 8 u Lisinopril (Zestril) 20 mg PO DAILY [facility] Last Admin: 12/23/18 09:59 Dose: 20 mg Methylprednisolone (Solu-Medrol) 40 mg IVP Q8H [facility] Last Admin: 12/23/18 19:03 Dose: Not Given Metoprolol Tartrate (Lopressor) 50 mg PO BID [facility] Last Admin: 12/23/18 19:00 Dose: 50 mg Montelukast Sodium (Singulair) 10 mg PO HS [facility] Last Admin: 12/22/18 21:10 Dose: 10 mg Oxycodone/Acetaminophen (Percocet 5/325 Mg Tab) 1 tab PO Q8H PRN PRN Reason: Pain, severe (8-10) Stop: 12/25/18 15:08 Pantoprazole Sodium (Protonix Inj) 40 mg IVP Q12 [facility] Last Admin: 12/23/18 09:52 Dose: 40 mg Pregabalin (Lyrica) 75 mg PO BID [facility] Last Admin: 12/23/18 19:01 Dose: 75 mg - Labs Labs: 12/23/18 05:18 12/23/18 05:18 PT 24.3 SECONDS (9.4-12.5) H 12/21/18 19:10 INR 2.19 12/21/18 19:10 APTT 32.4 Seconds (26.9-38.3) 12/21/18 19:10 Attending/Attestation - Attestation I have personally seen and examined this patient.: Yes I have fully participated in the care of the patient.: Yes I have reviewed all pertinent clinical information, including history, physical exam and plan: Yes Notes (Text): This is an addendum to the GI progress note dictated by the resident. The patient was seen and evaluated earlier today along with the resident. Patient refused to CT scan History of pulmonary hypertension A. fib valvular heart disease coronary artery disease CHF high risk for thromboembolic event patient was on Eliquis patient has significant drop in hemoglobin admitted with a hemoglobin of 6.7. One episode of bright red blood per rectum before. Patient refusing endoscopy or colonoscopy evaluation. She also refused CT scan. Abnormal LFTs probably related to the hepatic congestion patient has significant pulmonary hypertension hepatic congestion from right-sided pressure could be the cause. Hepatitis profile was negative. However we will get a baseline ultrasound scan which has been ordered. Follow-up LFTs. Follow-up hemoglobin hematocrit. Discussed with ICU staff 12/23/18 19:58
[2018-12-23 08:32] LABS: ARTERIAL BLOOD GAS HCO3 38.7 mmol/L (21-28); ARTERIAL BLOOD GAS O2 CAPACITY 10.9 mL/dl (16-24); ARTERIAL BLOOD GAS O2 CONTENT 10.6 ML/dl (15-23); ARTERIAL BLOOD GAS O2 SAT 97.3 % (95-98); ARTERIAL BLOOD GAS PCO2 64 mm/Hg (35-45); ARTERIAL BLOOD GAS PH 7.39 (7.35-7.45); ARTERIAL BLOOD GAS TCO2 40.7 mmol.L (22-28)
[2018-12-23] MEDS: Insulin Lispro (humaLOG) MEDIUM Coverage SC SCH ×4 (09:48→21:49)
[2018-12-23] MEDS: Sildenafil 20 MG TAB PO SCH (09:58)
[2018-12-23] MEDS: Albuterol-Ipratrop 3 mg / 0.5 (3 ml) UD IH PRN (12:41)
[2018-12-23] MEDS: Oxycodone/Acetaminophen 5/325 mg Tab PO SCH (13:00)
[2018-12-23] MEDS ORDERED: MethylPREDNISolone 40 mg Vial IM STA (13:24)
--- NOTE | 2018-12-23 13:44 | RAD ---
Date of service: 12/23/2018 HISTORY: r/o Pulmonary edema, CHF COMPARISON: 12/22/2019 TECHNIQUE: 1 view obtained. FINDINGS: LUNGS: No active pulmonary disease. PLEURA: No significant pleural effusion identified, no pneumothorax apparent. CARDIOVASCULAR: There is atherosclerotic calcification the thoracic aorta. Normal heart size. Permanent pacemaker. Sternotomy wires. CABG. No pulmonary vascular congestion. OSSEOUS STRUCTURES: No significant abnormalities. VISUALIZED UPPER ABDOMEN: Normal. OTHER FINDINGS: None. IMPRESSION: No active disease.
[2018-12-23] MEDS ORDERED: Levalbuterol 1.25 MG/3 ML Inhal Soln UD IH SCH (14:00)
--- NOTE | 2018-12-23 14:44 | CP.CCUPN ---
CCU Objective - Vital Signs / Intake & Output Vital Signs (Last 4 hours): Vital Signs Temp Pulse Resp BP Pulse Ox 12/23/18 14:05 98.5 F 98 H 21 158/65 H 12/23/18 13:47 98.6 F 80 18 149/89 12/23/18 11:50 90 21 88 L 12/23/18 11:40 98 H 32 H 90 L 12/23/18 11:30 84 23 94 L 12/23/18 11:20 75 16 96 12/23/18 11:10 74 17 96 12/23/18 11:00 86 18 93 L 12/23/18 10:50 90 19 99 Intake and Output (Last 8hrs): Intake & Output 12/22/18 12/23/18 12/23/18 22:59 06:59 14:59 Intake Total 900 350 0 Output Total 1000 1500 Balance -100 -1150 0 Intake: Oral 900 350 Blood Product 0 Red Blood Cells Cpd As1 0 Lr Unit [id number] Output: Urine 1000 1500 Urethral ([place]) 1000 1500 Other: # Bowel Movements 0 - Physical Exam Head: Positive for: Atraumatic, Normocephalic Pupils: Positive for: PERRL Extroacular Muscles: Positive for: EOMI Conjunctiva: Positive for: Normal Mouth: Positive for: Moist Mucous Membranes Neck: Positive for: Normal Range of Motion Respiratory/Chest: Positive for: Clear to Auscultation, Good Air Exchange, Respiratory Distress. Negative for: Accessory Muscle Use, Wheezes, Decreased Breath Sounds Cardiovascular: Positive for: Regular Rate and Rhythm, Normal S1, S2 Abdomen: Negative for: Tenderness, Distention Neurological: Positive for: GCS=15, CN II-XII Intact, Speech Normal Skin: Positive for: Warm, Dry, Rashes Psychiatric: Positive for: Alert, Oriented x 3 - Medications Active Medications: Active Medications Generic Name Dose Route Start Last Admin Trade Name Freq PRN Reason Stop Dose Admin Acetaminophen 650 mg 12/22/18 19:50 12/23/18 10:32 Tylenol 325mg Tab PO 650 mg Q6H PRN Administration Pain, Mild (1-3) Albuterol/Ipratropium 3 ml 12/21/18 20:25 12/23/18 12:41 Duoneb 3 Mg/0.5 Mg (3 Ml) Ud IH 3 ml Q2H PRN Administration Shortness of Breath Albuterol/Ipratropium 3 ml 12/23/18 15:30 Duoneb 3 Mg/0.5 Mg (3 Ml) Ud IH [id number] LINDA Atorvastatin Calcium 40 mg 12/22/18 22:00 12/22/18 21:09 Lipitor PO 40 mg HS LINDA Administration Budesonide 0.5 mg 12/23/18 20:00 Pulmicort Respules IH [id number] LINDA Dextrose 0 ml 12/21/18 22:04 Dextrose 50% Inj IV STAT PRN Hypoglycemia Protocol Protocol Folic Acid 1 mg 12/22/18 10:00 12/23/18 09:59 Folic Acid PO 1 mg DAILY LINDA Administration Furosemide 40 mg 12/22/18 18:00 12/23/18 09:51 Lasix IV 40 mg BID LINDA Administration Furosemide 40 mg 12/23/18 16:00 Lasix IV 12/23/18 16:01 ONCE ONE Dextrose 1,000 mls @ 0 mls/hr 12/21/18 22:04 Dextrose 5% In Water 1000 Ml IV .Q0M PRN Hypoglycemia Protocol Protocol Per Protocol Azithromycin 500 mg in 250 mls @ 167 mls/hr 12/23/18 14:45 Zithromax 500mg In Ns IVPB DAILY [facility] Protocol Ceftriaxone Sodium 1 gm in 100 mls @ 100 mls/hr 12/23/18 14:45 Rocephin 1 Gram Ivpb IVPB DAILY [facility] Protocol Insulin Human Lispro 0 units 12/22/18 07:30 12/23/18 09:48 Humalog Med SC 3 u ACHS LINDA Administration Protocol Levalbuterol HCl 1.25 mg 12/23/18 14:00 Xopenex IH [id number] [facility] Lisinopril 20 mg 12/22/18 10:00 12/23/18 09:59 Zestril PO 20 mg DAILY LINDA Administration Methylprednisolone 40 mg 12/23/18 14:45 Solu-Medrol IVP Q8H [facility] Metoprolol Tartrate 50 mg 12/22/18 10:00 12/23/18 09:58 Lopressor PO 50 mg BID LINDA Administration Montelukast Sodium 10 mg 12/21/18 22:00 12/22/18 21:10 Singulair PO 10 mg HS LINDA Administration Oxycodone/Acetaminophen 1 tab 12/22/18 10:00 12/23/18 13:00 Percocet 5/325 Mg Tab PO 12/25/18 10:01 1 tab TID LINDA Administration Pantoprazole Sodium 40 mg 12/22/18 11:45 12/23/18 09:52 Protonix Inj IVP 40 mg Q12 LINDA Administration Pregabalin 75 mg 12/21/18 23:45 12/23/18 09:58 Lyrica PO 75 mg BID LINDA Administration - Patient Studies Lab Studies: Microbiology Studies 12/21/18 23:10 MRSA Culture (Admit) - Final Nose MRSA NOT DETECTED Lab Studies 12/23/18 12/23/18 12/23/18 Range/Units 08:20 07:17 05:18 WBC (4.5-11.0) 10^3/uL RBC (3.5-6.1) 10^6/uL Hgb (12.0-16.0) g/dL Hct (36.0-48.0) % MCV (80.0-105.0) fl MCH (25.0-35.0) pg MCHC (31.0-37.0) g/dl RDW (11.5-14.5) % Plt Count (120.0-450.0) 10^3/uL MPV (7.0-11.0) fl Neut % (Auto) (50.0-68.0) % Lymph % (Auto) (22.0-35.0) % [place] % (Auto) (1.0-6.0) % Eos % (Auto) (1.5-5.0) % Baso % (Auto) (0.0-3.0) % Lymph # (Auto) (1.2-3.4) [place] # (Auto) (0.1-0.6) Eos # (Auto) (0.0-0.7) Baso # (Auto) (0.0-2.0) K/mm3 Absolute Neuts (auto) (1.4-6.5) pCO2 64 H (35-45) mm/Hg pO2 77.0 L (80-100) mm/Hg HCO3 38.7 H (21-28) mmol/L ABG pH 7.39 (7.35-7.45) ABG Total CO2 40.7 H (22-28) mmol.L ABG O2 Saturation 97.3 (95-98) % ABG O2 Content 10.6 L (15-23) ML/dl ABG Base Excess 12.2 H (-2.0-3.0) mmol/L ABG Hemoglobin 8.0 L (11.7-17.4) g/dL ABG Carboxyhemoglobin 3.0 H (0.5-1.5) % POC ABG HHb (Measured) 2.6 (0-5) % ABG Methemoglobin 1.6 (0.0-3.0) % ABG O2 Capacity 10.9 L (16-24) mL/dl ABG Potassium (3.6-5.2) mmol/L Hgb O2 Saturation 92.7 L (95.0-98.0) % Sodium 142 (132-148) mmol/L Chloride 101 (98-107) mmol/L Glucose (65-105) mg/dl Lactate (0.7-2.1) mmol/L FiO2 28.0 % Blood Gas Comments Pco2=64 Crit Value Called To steffany Haley Crit Value Called By García Blood Gas Notified Time 830 Potassium 4.6 (3.6-5.0) mmol/L Carbon Dioxide 36 H (21-33) mmol/L Anion Gap 10 (10-20) BUN 41 H (7-21) mg/dL Creatinine 2.3 H (0.7-1.2) mg/dl Est GFR ( Amer) 25 Est GFR (Non-Af Amer) 21 POC Glucose (mg/dL) 206 H (65-110) mg/dL Random Glucose 194 H (70-110) mg/dL Calcium 8.3 L (8.4-10.5) mg/dL Total Bilirubin 0.5 (0.2-1.3) mg/dL AST 34 (14-36) U/L ALT 117 H (7-56) U/L Alkaline Phosphatase 76 (38-126) U/L Total Protein 5.6 L (5.8-8.3) g/dL Albumin 2.8 L (3.0-4.8) g/dL Globulin 2.8 gm/dL Albumin/Globulin Ratio 1.0 L (1.1-1.8) Arterial Blood Potassium (3.6-5.2) mmol/L Blood Type Antibody Screen Crossmatch BBK History Checked 12/23/18 12/22/18 12/22/18 Range/Units 05:18 21:25 17:40 WBC 6.6 (4.5-11.0) 10^3/uL RBC 2.66 L (3.5-6.1) 10^6/uL Hgb 7.4 L (12.0-16.0) g/dL Hct 25.7 L (36.0-48.0) % MCV 96.6 (80.0-105.0) fl MCH 27.8 (25.0-35.0) pg MCHC 28.8 L (31.0-37.0) g/dl RDW 23.9 H (11.5-14.5) % Plt Count 198 (120.0-450.0) 10^3/uL MPV (7.0-11.0) fl Neut % (Auto) 62.7 (50.0-68.0) % Lymph % (Auto) 17.3 L (22.0-35.0) % [place] % (Auto) 13.9 H (1.0-6.0) % Eos % (Auto) 5.8 H (1.5-5.0) % Baso % (Auto) 0.3 (0.0-3.0) % Lymph # (Auto) 1.1 L (1.2-3.4) [place] # (Auto) 0.9 H (0.1-0.6) Eos # (Auto) 0.4 (0.0-0.7) Baso # (Auto) 0.02 (0.0-2.0) K/mm3 Absolute Neuts (auto) 4.11 (1.4-6.5) pCO2 85 H* (35-45) mm/Hg pO2 25.0 L* (80-100) mm/Hg HCO3 39.9 H (21-28) mmol/L ABG pH 7.28 L (7.35-7.45) ABG Total CO2 42.5 H (22-28) mmol.L ABG O2 Saturation 35.6 L (95-98) % ABG O2 Content (15-23) ML/dl ABG Base Excess 9.6 H (-2.0-3.0) mmol/L ABG Hemoglobin (11.7-17.4) g/dL ABG Carboxyhemoglobin (0.5-1.5) % POC ABG HHb (Measured) (0-5) % ABG Methemoglobin (0.0-3.0) % ABG O2 Capacity (16-24) mL/dl ABG Potassium 4.8 (3.6-5.2) mmol/L Hgb O2 Saturation (95.0-98.0) % Sodium 144.0 (132-148) mmol/L Chloride 105.0 (98-107) mmol/L Glucose 215 H (65-105) mg/dl Lactate 1.5 (0.7-2.1) mmol/L FiO2 28.0 % Blood Gas Comments Crit Value Called To bin Delcid Crit Value Called By García Blood Gas Notified Time 1748 Potassium (3.6-5.0) mmol/L Carbon Dioxide (21-33) mmol/L Anion Gap (10-20) BUN (7-21) mg/dL Creatinine (0.7-1.2) mg/dl Est GFR ( Amer) Est GFR (Non-Af Amer) POC Glucose (mg/dL) 200 H (65-110) mg/dL Random Glucose (70-110) mg/dL Calcium (8.4-10.5) mg/dL Total Bilirubin (0.2-1.3) mg/dL AST (14-36) U/L ALT (7-56) U/L Alkaline Phosphatase (38-126) U/L Total Protein (5.8-8.3) g/dL Albumin (3.0-4.8) g/dL Globulin gm/dL Albumin/Globulin Ratio (1.1-1.8) Arterial Blood Potassium 4.8 (3.6-5.2) mmol/L Blood Type Antibody Screen Crossmatch BBK History Checked 12/22/18 12/22/18 12/22/18 Range/Units 17:00 16:09 11:07 WBC 6.9 D (4.5-11.0) 10^3/uL RBC 2.60 L (3.5-6.1) 10^6/uL Hgb 7.6 L (12.0-16.0) g/dL Hct 25.0 L (36.0-48.0) % MCV 96.2 (80.0-105.0) fl MCH 29.2 (25.0-35.0) pg MCHC 30.4 L (31.0-37.0) g/dl RDW 24.0 H (11.5-14.5) % Plt Count 189 (120.0-450.0) 10^3/uL MPV (7.0-11.0) fl Neut % (Auto) 64.0 (50.0-68.0) % Lymph % (Auto) 13.8 L (22.0-35.0) % [place] % (Auto) 16.3 H (1.0-6.0) % Eos % (Auto) 5.5 H (1.5-5.0) % Baso % (Auto) 0.4 (0.0-3.0) % Lymph # (Auto) 1.0 L (1.2-3.4) [place] # (Auto) 1.1 H (0.1-0.6) Eos # (Auto) 0.4 (0.0-0.7) Baso # (Auto) 0.03 (0.0-2.0) K/mm3 Absolute Neuts (auto) 4.38 (1.4-6.5) pCO2 (35-45) mm/Hg pO2 (80-100) mm/Hg HCO3 (21-28) mmol/L ABG pH (7.35-7.45) ABG Total CO2 (22-28) mmol.L ABG O2 Saturation (95-98) % ABG O2 Content (15-23) ML/dl ABG Base Excess (-2.0-3.0) mmol/L ABG Hemoglobin (11.7-17.4) g/dL ABG Carboxyhemoglobin (0.5-1.5) % POC ABG HHb (Measured) (0-5) % ABG Methemoglobin (0.0-3.0) % ABG O2 Capacity (16-24) mL/dl ABG Potassium (3.6-5.2) mmol/L Hgb O2 Saturation (95.0-98.0) % Sodium (132-148) mmol/L Chloride (98-107) mmol/L Glucose (65-105) mg/dl Lactate (0.7-2.1) mmol/L FiO2 % Blood Gas Comments Crit Value Called To Crit Value Called By Blood Gas Notified Time Potassium (3.6-5.0) mmol/L Carbon Dioxide (21-33) mmol/L Anion Gap (10-20) BUN (7-21) mg/dL Creatinine (0.7-1.2) mg/dl Est GFR ( Amer) Est GFR (Non-Af Amer) POC Glucose (mg/dL) 286 H 281 H (65-110) mg/dL Random Glucose (70-110) mg/dL Calcium (8.4-10.5) mg/dL Total Bilirubin (0.2-1.3) mg/dL AST (14-36) U/L ALT (7-56) U/L Alkaline Phosphatase (38-126) U/L Total Protein (5.8-8.3) g/dL Albumin (3.0-4.8) g/dL Globulin gm/dL Albumin/Globulin Ratio (1.1-1.8) Arterial Blood Potassium (3.6-5.2) mmol/L Blood Type Antibody Screen Crossmatch BBK History Checked 12/21/18 Range/Units 19:00 WBC (4.5-11.0) 10^3/uL RBC (3.5-6.1) 10^6/uL Hgb (12.0-16.0) g/dL Hct (36.0-48.0) % MCV (80.0-105.0) fl MCH (25.0-35.0) pg MCHC (31.0-37.0) g/dl RDW (11.5-14.5) % Plt Count (120.0-450.0) 10^3/uL MPV (7.0-11.0) fl Neut % (Auto) (50.0-68.0) % Lymph % (Auto) (22.0-35.0) % [place] % (Auto) (1.0-6.0) % Eos % (Auto) (1.5-5.0) % Baso % (Auto) (0.0-3.0) % Lymph # (Auto) (1.2-3.4) [place] # (Auto) (0.1-0.6) Eos # (Auto) (0.0-0.7) Baso # (Auto) (0.0-2.0) K/mm3 Absolute Neuts (auto) (1.4-6.5) pCO2 (35-45) mm/Hg pO2 (80-100) mm/Hg HCO3 (21-28) mmol/L ABG pH (7.35-7.45) ABG Total CO2 (22-28) mmol.L ABG O2 Saturation (95-98) % ABG O2 Content (15-23) ML/dl ABG Base Excess (-2.0-3.0) mmol/L ABG Hemoglobin (11.7-17.4) g/dL ABG Carboxyhemoglobin (0.5-1.5) % POC ABG HHb (Measured) (0-5) % ABG Methemoglobin (0.0-3.0) % ABG O2 Capacity (16-24) mL/dl ABG Potassium (3.6-5.2) mmol/L Hgb O2 Saturation (95.0-98.0) % Sodium (132-148) mmol/L Chloride (98-107) mmol/L Glucose (65-105) mg/dl Lactate (0.7-2.1) mmol/L FiO2 % Blood Gas Comments Crit Value Called To Crit Value Called By Blood Gas Notified Time Potassium (3.6-5.0) mmol/L Carbon Dioxide (21-33) mmol/L Anion Gap (10-20) BUN (7-21) mg/dL Creatinine (0.7-1.2) mg/dl Est GFR ( Amer) Est GFR (Non-Af Amer) POC Glucose (mg/dL) (65-110) mg/dL Random Glucose (70-110) mg/dL Calcium (8.4-10.5) mg/dL Total Bilirubin (0.2-1.3) mg/dL AST (14-36) U/L ALT (7-56) U/L Alkaline Phosphatase (38-126) U/L Total Protein (5.8-8.3) g/dL Albumin (3.0-4.8) g/dL Globulin gm/dL Albumin/Globulin Ratio (1.1-1.8) Arterial Blood Potassium (3.6-5.2) mmol/L Blood Type O POSITIVE Antibody Screen Negative Crossmatch See Detail BBK History Checked Patient has bt Laboratory Results - last 24 hr 12/21/18 12/22/18 12/22/18 19:00 11:07 16:09 WBC RBC Hgb Hct MCV MCH MCHC RDW Plt Count MPV Neut % (Auto) Lymph % (Auto) [place] % (Auto) Eos % (Auto) Baso % (Auto) Lymph # (Auto) [place] # (Auto) Eos # (Auto) Baso # (Auto) Absolute Neuts (auto) pCO2 pO2 HCO3 ABG pH ABG Total CO2 ABG O2 Saturation ABG O2 Content ABG Base Excess ABG Hemoglobin ABG Carboxyhemoglobin POC ABG HHb (Measured) ABG Methemoglobin ABG O2 Capacity ABG Potassium Hgb O2 Saturation Sodium Chloride Glucose Lactate FiO2 Blood Gas Comments Crit Value Called To Crit Value Called By Blood Gas Notified Time Potassium Carbon Dioxide Anion Gap BUN Creatinine Est GFR ( Amer) Est GFR (Non-Af Amer) POC Glucose (mg/dL) 281 H 286 H Random Glucose Calcium Total Bilirubin AST ALT Alkaline Phosphatase Total Protein Albumin Globulin Albumin/Globulin Ratio Arterial Blood Potassium Blood Type O POSITIVE Antibody Screen Negative Crossmatch See Detail BBK History Checked Patient has bt 12/22/18 12/22/18 12/22/18 17:00 17:40 21:25 WBC 6.9 D RBC 2.60 L Hgb 7.6 L Hct 25.0 L MCV 96.2 MCH 29.2 MCHC 30.4 L RDW 24.0 H Plt Count 189 MPV Neut % (Auto) 64.0 Lymph % (Auto) 13.8 L [place] % (Auto) 16.3 H Eos % (Auto) 5.5 H Baso % (Auto) 0.4 Lymph # (Auto) 1.0 L [place] # (Auto) 1.1 H Eos # (Auto) 0.4 Baso # (Auto) 0.03 Absolute Neuts (auto) 4.38 pCO2 85 H* pO2 25.0 L* HCO3 39.9 H ABG pH 7.28 L ABG Total CO2 42.5 H ABG O2 Saturation 35.6 L ABG O2 Content ABG Base Excess 9.6 H ABG Hemoglobin ABG Carboxyhemoglobin POC ABG HHb (Measured) ABG Methemoglobin ABG O2 Capacity ABG Potassium 4.8 Hgb O2 Saturation Sodium 144.0 Chloride 105.0 Glucose 215 H Lactate 1.5 FiO2 28.0 Blood Gas Comments Crit Value Called To bin Delcid Crit Value Called By García Blood Gas Notified Time 1748 Potassium Carbon Dioxide Anion Gap BUN Creatinine Est GFR ( Amer) Est GFR (Non-Af Amer) POC Glucose (mg/dL) 200 H Random Glucose Calcium Total Bilirubin AST ALT Alkaline Phosphatase Total Protein Albumin Globulin Albumin/Globulin Ratio Arterial Blood Potassium 4.8 Blood Type Antibody Screen Crossmatch BBK History Checked 12/23/18 12/23/18 12/23/18 05:18 05:18 07:17 WBC 6.6 RBC 2.66 L Hgb 7.4 L Hct 25.7 L MCV 96.6 MCH 27.8 MCHC 28.8 L RDW 23.9 H Plt Count 198 MPV Neut % (Auto) 62.7 Lymph % (Auto) 17.3 L [place] % (Auto) 13.9 H Eos % (Auto) 5.8 H Baso % (Auto) 0.3 Lymph # (Auto) 1.1 L [place] # (Auto) 0.9 H Eos # (Auto) 0.4 Baso # (Auto) 0.02 Absolute Neuts (auto) 4.11 pCO2 pO2 HCO3 ABG pH ABG Total CO2 ABG O2 Saturation ABG O2 Content ABG Base Excess ABG Hemoglobin ABG Carboxyhemoglobin POC ABG HHb (Measured) ABG Methemoglobin ABG O2 Capacity ABG Potassium Hgb O2 Saturation Sodium 142 Chloride 101 Glucose Lactate FiO2 Blood Gas Comments Crit Value Called To Crit Value Called By Blood Gas Notified Time Potassium 4.6 Carbon Dioxide 36 H Anion Gap 10 BUN 41 H Creatinine 2.3 H Est GFR ( Amer) 25 Est GFR (Non-Af Amer) 21 POC Glucose (mg/dL) 206 H Random Glucose 194 H Calcium 8.3 L Total Bilirubin 0.5 AST 34 ALT 117 H Alkaline Phosphatase 76 Total Protein 5.6 L Albumin 2.8 L Globulin 2.8 Albumin/Globulin Ratio 1.0 L Arterial Blood Potassium Blood Type Antibody Screen Crossmatch BBK History Checked 12/23/18 08:20 WBC RBC Hgb Hct MCV MCH MCHC RDW Plt Count MPV Neut % (Auto) Lymph % (Auto) [place] % (Auto) Eos % (Auto) Baso % (Auto) Lymph # (Auto) [place] # (Auto) Eos # (Auto) Baso # (Auto) Absolute Neuts (auto) pCO2 64 H pO2 77.0 L HCO3 38.7 H ABG pH 7.39 ABG Total CO2 40.7 H ABG O2 Saturation 97.3 ABG O2 Content 10.6 L ABG Base Excess 12.2 H ABG Hemoglobin 8.0 L ABG Carboxyhemoglobin 3.0 H POC ABG HHb (Measured) 2.6 ABG Methemoglobin 1.6 ABG O2 Capacity 10.9 L ABG Potassium Hgb O2 Saturation 92.7 L Sodium Chloride Glucose Lactate FiO2 28.0 Blood Gas Comments Pco2=64 Crit Value Called To steffany Haley Crit Value Called By García Blood Gas Notified Time 830 Potassium Carbon Dioxide Anion Gap BUN Creatinine Est GFR ( Amer) Est GFR (Non-Af Amer) POC Glucose (mg/dL) Random Glucose Calcium Total Bilirubin AST ALT Alkaline Phosphatase Total Protein Albumin Globulin Albumin/Globulin Ratio Arterial Blood Potassium Blood Type Antibody Screen Crossmatch BBK History Checked Radiology Impressions: Radiology Impressions Abdomen/Pelvis CT 12/22/18 16:08 IMPRESSION: Evidence of cystitis a new finding compared to the prior study. Right flank edema. Dependent anasarca. No evidence of retroperitoneal or intraperitoneal hemorrhage/hematoma. Additional benign and/or incidental findings described above. Chest X-Ray 12/23/18 13:23 IMPRESSION: No active disease. Fingerstick Blood Sugar Results: 200 Critical Care Progress Note - Nutrition Nutrition: Nutrition Category Date Time Status Consistent Carbohydrate [DIET] Diets 12/22/18 Dinner Ordered Addendum Addendum: 12/23/18 14:42 MICU Attending Patient transferred out of ICU yesterday 12/22 order cancelled this afternoon due to concern for SOB by primary team after re-evaluating the patient, she is stable on her baseline home 2L oxygen she feel better normotensive not requiring non-invasive PPV at this time does not require ICU level care Transfer to sanket Zafar MD MICU Attending
[2018-12-23] MEDS ORDERED: Oxycodone/Acetaminophen 5/325 mg Tab PO PRN (15:07)
[2018-12-23] MEDS: cefTRIAXone 1 gm 1 GM/100 ML BAG IVPB SCH (16:16)
[2018-12-23] MEDS: Azithromycin 500MG/NS 250ml 500 MG/250 ML BAG IVPB SCH (16:21)
--- NOTE | 2018-12-23 17:24 | PN ---
DATE: 12/23/2018 SUBJECTIVE: The patient is 73-year-old, seen and examined. Fully awake, alert and oriented. Complaint of some feeling of heaviness in both legs and shortness of breath has improved. PHYSICAL EXAMINATION: VITAL SIGNS: The patient is afebrile. Pulse 90, respirations 21 and blood pressure 161/56. LUNGS: Bilateral decreased breath sounds. HEART: S1 and S2, audible. ABDOMEN: Soft and nontender. No rebound. No guarding. NEUROLOGIC: The patient is awake, alert and able to communicate. EXTREMITIES: Bilateral leg no edema. LABORATORY EXAMINATION: WBC 6.6, hemoglobin 7.4, hematocrit 25.7, platelet 198. Chemistry; sodium 142, potassium 4.6, chloride 101, CO2 of 26, BUN 41, creatinine 2.3 and blood sugar of 206. ASSESSMENT: 1. Symptomatic anemia. 2. Chronic obstructive pulmonary disease. 3. Congestive heart failure. 4. Noninsulin-dependant diabetes. PLAN: The patient's diet has been advanced, she is refusing endoscopy and colonoscopy. The patient is still anemic. We will give one blood transfusion. She will be transferred to telemetry later on Today. Laurel Schultz MD
--- NOTE | 2018-12-23 17:52 | PN ---
DATE: 12/23/2018 REASON FOR CONSULTATION AND FOLLOWUP: Cardiac evaluation, history of coronary artery disease, history of CABG, history of PTCA, history of pulmonary hypertension, history of atrial fibrillation status post pacemaker, admitted with generalized witnessed seizure and anemia. SUBJECTIVE: Denies any chest pain. Denies any shortness or breath. Denies any palpitation. OBJECTIVE GENERAL: Not in apparent distress, wanting to go home. VITAL SIGNS: Examination as follows: Temperature afebrile, heart rate 90, blood pressure 116/50. HEENT: PERRLA. Extraocular muscles intact. NECK: Supple. No carotid bruits or thyromegaly. CHEST: Clear to auscultation. HEART: S1 and S2 regular. ABDOMEN: Soft. EXTREMITIES: Clubbing, cyanosis negative. LABORATORY DATA: Blood workup as follows; WBC 76, hemoglobin 7.2, hematocrit 25.7, and platelet count 198. Chemistry shows sodium 147, potassium 4.6, chloride 101, carbon dioxide 36, anion gap of 10, BUN 41, creatinine 2.3, total protein 5.6, albumin 2.8, and albumin-globulin ratio 1. IMPRESSION: A 73-year-old female with past medical history significant for coronary artery disease, status post coronary artery bypass surgery on 06/11/[address] [facility], history of angioplasty, history of atrial fibrillation, status post sick sinus syndrome, status post permanent pacemaker. Last catheterization revealed the patient had 4-vessel bypass, left internal mammary artery to left anterior descending, saphenous vein graft to the right coronary artery, saphenous vein graft to the diagonal 1 and obtuse marginal 1. Last catheterization on 05/29/2014 with coronary artery bypass surgery on 06/14/2013, to the right coronary artery was totally occluded. The patient underwent angioplasty of [place] right coronary artery, ejection fraction of 65%. The patient had also right heart catheterization at that time as well. The patient had ejection fraction of 65% . Last echo on last admission, 09/06/2018, showed normal left ventricular ejection fraction of 55-60%, right ventricular systolic pressure 67 mmHg, moderate tricuspid regurgitation, mild aortic stenosis, mitral regurgitation [id number], valve area 1.9 cm from mitral valve mild stenosis, admitted with severe anemia, history of packed red blood cell transfusion 6.7, today is 7.4. History of pulmonary hypertension, history of atrial fibrillation on anticoagulation, history of Eliquis 2.5 also and the patient was on Revatio for pulmonary hypertension. RECOMMENDATION: We will give 2 units of blood for her history of renal insufficiency. Discussed with the nursing staff taking care of the patient and told the patient that the patient may need 2 units of blood. We will follow with you. Sapna Latif MD
[2018-12-23] MEDS: MethylPREDNISolone 40 mg Vial IVP SCH ×2 (19:03→21:57)
[2018-12-23] MEDS: Budesonide 0.5 mg/2 ml Inhal Susp UD IH SCH (19:59)
--- NOTE | 2018-12-23 20:01 | PN ---
DATE: 12/23/2018 SUBJECTIVE: The patient is seen and examined at bedside. She is comfortable. She had an episode of wheezing, however, it is resolved with an extra dose of DuoNeb and one dose of IV steroids. At the present time the patient is alert, awake and oriented x3, talks full sentences, not in respiratory or otherwise distress. PHYSICAL EXAMINATION VITAL SIGNS: Temperature 98.5, heart rate 98, blood pressure 158/65, respiratory rate 21, oxygen saturation 92% on 2 liters nasal cannula. HEENT: Head and neck atraumatic. LUNGS: Clear to auscultation bilaterally. Slightly decreased breath sounds bilaterally. HEART: Irregular rate and rhythm. S1, S2 normal. ABDOMEN: Soft, nontender and nondistended. MUSCULOSKELETAL: There is a trace to 1+ bilateral pedal and ankle edema. NEUROLOGIC: The patient moves all extremities spontaneously. SKIN: Moist. PSYCHIATRIC: The patient is alert, awake and oriented x3. LABORATORY DATA WBC is 6.6, hemoglobin 7.4, platelet count 198. Sodium 142, potassium 4.6, chloride 101, carbon dioxide 36, BUN 41, creatinine 2.3 up from 2.1, glucose 206. AST 34, ALT 117, total bilirubin 0.5, proBNP 2 days ago [id number], (so we will order another proBNP to follow up on quality of diuresis). INR 2.19. ABG is 7.39, pCO2 of 64, pO2 of 77 on 2 liters nasal cannula. Chest x-ray showed some vascular congestion but no distinct infiltrates. MEDICATIONS: I started the patient on a steroid taper, antibiotics, and increased frequency of DuoNeb to every 4 hours. Tylenol p.r.n., DuoNeb p.r.n. and DuoNeb every 4 hours on a standing basis. Lipitor, Pulmicort nebulizer, folic acid, Lasix 40 mg IV b.i.d., regular insulin sliding scale medium protocol, Xopenex every 6 hours, which will be stopped, lisinopril, Solu-Medrol 40 mg IV every 8 hours, metoprolol 50 mg p.o. b.i.d., Singulair, Percocet, Protonix, Lyrica, ceftriaxone, and azithromycin. ASSESSMENT AND PLAN: This is a 73-year-old lady who presented with some low hemoglobin level. The CT scan of the abdomen and pelvis was done yesterday and showed some evidence of cystitis, which appears to be new finding compared with prior study, a right flank edema but no signs of hemorrhage or hematoma. This is a 73-year-old lady who presented to [facility] with nonspecific complaints including failure to thrive, fatigue, some shortness of breath, which was initially attributed to her anemia with hemoglobin 6.7. Her CT of the abdomen and pelvis did not reveal any signs of acute hemorrhage. She did require intermittent blood transfusion and it appears that her hemoglobin was fairly stable since yesterday (7.6 to 7.4). She did have episode of some wheezing which along with the initial complaint of shortness of breath may be attributed to chronic obstructive pulmonary disease exacerbation. I will start the patient on a steroid taper, bronchodilators. I will start the patient on ceftriaxone and azithromycin. The ceftriaxone would also cover potential urinary tract infection (cystitis was observed on the CT scan of the abdomen and pelvis) as well as potential respiratory pathogens that might cause chronic obstructive pulmonary disease exacerbation. Recent data suggests that azithromycin started at the time of chronic obstructive pulmonary disease exacerbation may also improve some chronic obstructive pulmonary disease related outcome on a longer term basis. I will stop the azithromycin as well. Of note, the patient does have a right ventricular failure and pulmonary hypertension most likely related to combination of left ventricular diastolic dysfunction as well as chronic obstructive pulmonary disease. I will stop her out of concern for worsening of pulmonary edema related to pulmonary vasodilators therapy in the setting of left ventricular diastolic dysfunction. I would continue with diuretics which may improved right ventricular function as well as her renal function if there is a component of cardiorenal syndrome. I agree with aggressive attempts to control the patient's heart rate. The patient is on metoprolol. The patient would need nightly BiPAP application for her chronic CO2 retention. We will continue with gastrointestinal prophylaxis. I will defer decision about restarting her therapeutic anticoagulation and timing thereof to Cardiology service. At present time, however, the patient is at her baseline in terms of respiratory status. She is hemodynamically stable. She is not in respiratory or otherwise distress. She is on 2 liters nasal cannula to maintain her oxygen saturation at more than 92%. That is pretty much the same amount of oxygen supplementation that she uses at home. Vitaliy Santiago MD
[2018-12-23] MEDS ORDERED: Metoprolol 1 mg/ml Inj IVP ONE (23:48)
--- NOTE | 2018-12-24 02:16 | CP.PCM.PN ---
Subjective - Date & Time of Evaluation Date of Evaluation: 12/24/18 Time of Evaluation: 02:15 - Subjective Subjective: Patient was seen at bedside. I was asked to co-sign order for Metoprolol 5 mg IV . It was ordered because patient's systolic blood pressure was between 185-191. Patient is asymptomatic. This 73 year old woman was admitted from MD's office with Hgb level fo 6.6, complains of fatigue, tiredness and sob. She has PMH of chronic atrial fibrillation, CAD, Pulmonary HTN, COPD, CKD, NIDDM Diabetic neuropathy, Chronic bilateral knee arthritis. Objective - Vital Signs/Intake and Output Vital Signs (last 24 hours): Temp Pulse Resp BP Pulse Ox 97.7 F 61 9 L 178/69 H 99 12/24/18 00:07 12/24/18 00:20 12/24/18 00:20 12/24/18 00:07 12/24/18 00:20 Intake and Output: 12/23/18 12/24/18 18:59 06:59 Intake Total 1750 380 Output Total 1400 Balance 350 380 - Medications Medications: Current Medications Acetaminophen (Tylenol 325mg Tab) 650 mg PO Q6H PRN PRN Reason: Pain, Mild (1-3) Last Admin: 12/23/18 10:32 Dose: 650 mg Albuterol/Ipratropium (Duoneb 3 Mg/0.5 Mg (3 Ml) Ud) 3 ml IH Q2H PRN PRN Reason: Shortness of Breath Last Admin: 12/23/18 12:41 Dose: 3 ml Albuterol/Ipratropium (Duoneb 3 Mg/0.5 Mg (3 Ml) Ud) 3 ml IH [id number] [facility] Last Admin: 12/23/18 23:15 Dose: 3 ml Atorvastatin Calcium (Lipitor) 40 mg PO HS [facility] Last Admin: 12/23/18 21:16 Dose: 40 mg Budesonide (Pulmicort Respules) 0.5 mg IH [id number] [facility] Last Admin: 12/23/18 19:59 Dose: 0.5 mg Dextrose (Dextrose 50% Inj) 0 ml IV STAT PRN; Protocol PRN Reason: Hypoglycemia Protocol Folic Acid (Folic Acid) 1 mg PO DAILY [facility] Last Admin: 12/23/18 09:59 Dose: 1 mg Furosemide (Lasix) 40 mg IV BID [facility] Last Admin: 12/23/18 18:59 Dose: 40 mg Dextrose (Dextrose 5% In Water 1000 Ml) 1,000 mls @ 0 mls/hr IV .Q0M PRN; Protocol PRN Reason: Hypoglycemia Protocol Azithromycin (Zithromax 500mg In Ns) 500 mg in 250 mls @ 167 mls/hr IVPB DAILY [facility]; Protocol Last Admin: 12/23/18 16:21 Dose: 167 mls/hr Ceftriaxone Sodium (Rocephin 1 Gram Ivpb) 1 gm in 100 mls @ 100 mls/hr IVPB DAILY [facility]; Protocol Last Admin: 12/23/18 16:16 Dose: 100 mls/hr Insulin Human Lispro (Humalog Med) 0 units SC ACHS [facility]; Protocol Last Admin: 12/23/18 21:49 Dose: 2 u Lisinopril (Zestril) 20 mg PO DAILY [facility] Last Admin: 12/23/18 09:59 Dose: 20 mg Methylprednisolone (Solu-Medrol) 40 mg IVP Q8H [facility] Last Admin: 12/23/18 21:57 Dose: 40 mg Metoprolol Tartrate (Lopressor) 50 mg PO BID [facility] Last Admin: 12/23/18 19:00 Dose: 50 mg Montelukast Sodium (Singulair) 10 mg PO HS [facility] Last Admin: 12/23/18 21:16 Dose: 10 mg Oxycodone/Acetaminophen (Percocet 5/325 Mg Tab) 1 tab PO Q8H PRN PRN Reason: Pain, severe (8-10) Stop: 12/25/18 15:08 Last Admin: 12/23/18 21:36 Dose: 1 tab Pantoprazole Sodium (Protonix Inj) 40 mg IVP Q12 [facility] Last Admin: 12/23/18 21:16 Dose: 40 mg Pregabalin (Lyrica) 75 mg PO BID [facility] Last Admin: 12/23/18 19:01 Dose: 75 mg - Labs Labs: 12/23/18 05:18 12/23/18 05:18 PT 24.3 SECONDS (9.4-12.5) H 12/21/18 19:10 INR 2.19 12/21/18 19:10 APTT 32.4 Seconds (26.9-38.3) 12/21/18 19:10 - Constitutional Appears: Well, No Acute Distress - Head Exam Head Exam: ATRAUMATIC, NORMAL INSPECTION, NORMOCEPHALIC - Eye Exam Eye Exam: Normal appearance - ENT Exam ENT Exam: Normal External Ear Exam - Neck Exam Neck Exam: Normal Inspection - Respiratory Exam Respiratory Exam: NORMAL BREATHING PATTERN - Cardiovascular Exam Cardiovascular Exam: absent: JVD - GI/Abdominal Exam GI & Abdominal Exam: absent: Distended - Rectal Exam Rectal Exam: Deferred - Exam Additional comments: Deferred. - Extremities Exam Extremities Exam: Normal Inspection - Back Exam Back Exam: NORMAL INSPECTION - Neurological Exam Neurological Exam: Alert, Awake, Oriented x3 - Psychiatric Exam Psychiatric exam: Normal Affect, Normal Mood - Skin Skin Exam: Normal Color Assessment and Plan - Assessment and Plan (Free Text) Assessment: Elevated blood pressure reading. Chronic atrial fibrillation. Pulmonary HTN. CAD COPD CKD NIDDM Diabetic neuropathy. Plan: Metoprolol 5 mg IV x 1. Continue present management .
[2018-12-24] MEDS: Albuterol-Ipratrop 3 mg / 0.5 (3 ml) UD IH SCH ×5 (04:48→21:03)
[2018-12-24] MEDS: MethylPREDNISolone 40 mg Vial IVP SCH ×2 (05:45→13:35)
[2018-12-24] MEDS: Budesonide 0.5 mg/2 ml Inhal Susp UD IH SCH ×2 (07:24→21:02)
[2018-12-24 07:30] LABS: LYMPH # 0.3 (1.2-3.4); LYMPH % 3.4 % (22.0-35.0); MEAN CELL VOLUME 93.4 fl (80.0-105.0); MEAN CORPUSCULAR HEMOGLOBIN 27.5 pg (25.0-35.0); MEAN CORPUSCULAR HGB CONC 29.5 g/dl (31.0-37.0); MONO # 0.2 (0.1-0.6); MONO % 2.4 % (1.0-6.0); PLATELET COUNT 220 10^3/uL (120.0-450.0); RBC 4.07 10^6/uL (3.5-6.1); RED CELL DISTRIBUTION WIDTH 22.5 % (11.5-14.5); WHITE BLOOD COUNT 8.5 10^3/uL (4.5-11.0)
[2018-12-24 07:33] LABS: HEMOGLOBIN 11.2 g/dL (12.0-16.0)
[2018-12-24 07:56] LABS: ALB/GLOB RATIO 1.1 (1.1-1.8); ALBUMIN 3.9 g/dL (3.0-4.8); CALCIUM 9.5 mg/dL (8.4-10.5)
[2018-12-24 08:09] LABS: LYMPHOCYTE 6 % (22.0-35.0); MONOCYTE 5 % (1.0-6.0); NEUTROPHIL 89 % (50.0-70.0)
[2018-12-24 08:11] LABS: ANISOCYTOSIS 1+; LARGE PLATELETS PRESENT; MICROCYTOSIS 2+; PLATELET ESTIMATE NORMAL (NORMAL); POIKILOCYTOSIS 1+
[2018-12-24] MEDS: Insulin Lispro (humaLOG) MEDIUM Coverage SC SCH ×4 (09:01→22:20)
--- NOTE | 2018-12-24 10:44 | US ---
Date of service: 12/24/2018 HISTORY: abnormal LFT COMPARISON: 10/23/2018 renal ultrasound. TECHNIQUE: Sonographic evaluation of the abdomen. FINDINGS: LIVER: Measures 18.2 cm. Patent portal and hepatic venous systems. Hepatopedal blood flow. Fatty infiltration manifest ultrasonographically as increased echogenicity of the liver parenchyma. No mass. No intrahepatic bile duct dilatation. GALLBLADDER: Unremarkable. No gallstones. COMMON BILE DUCT: Measures 6.0 mm. No stones. No dilatation. PANCREAS: Unremarkable as visualized. No mass. No ductal dilatation. RIGHT KIDNEY: Measures 5.5 x 11.4cm. Normal echogenicity. No calculus, mass, or hydronephrosis.Incidental finding(s): Lower pole cyst 1.9 x 2 cm. LEFT KIDNEY: Measures 5 3 x 10.6cm. Normal echogenicity. No calculus, mass, or hydronephrosis. SPLEEN: Normal in size and contour. No mass. AORTA: No aneurysmal dilatation. IVC: Unremarkable. OTHER FINDINGS: None. IMPRESSION: Hepatomegaly/hepatic steatosis. Otherwise unremarkable study.
[2018-12-24] MEDS: Azithromycin 500MG/NS 250ml 500 MG/250 ML BAG IVPB SCH (11:46)
[2018-12-24] MEDS: cefTRIAXone 1 gm 1 GM/100 ML BAG IVPB SCH (11:47)
[2018-12-24] MEDS ORDERED: NIFEdipine 30 mg ER Tab PO STA (11:53)
--- NOTE | 2018-12-24 12:45 | CP.PCM.PN ---
<VanessasimiJose boykin - Last Filed: 12/24/18 12:47> Subjective - Date & Time of Evaluation Date of Evaluation: 12/24/18 Time of Evaluation: 08:00 - Subjective Subjective: PGY6 GI Fellow Progress Note Patient seen and examined bedside this morning. The patient states that she is feeling well and has no new complaints. She denies any rectal bleeding or melanotic stool. No events overnight. 12 system ROS performed and negative except where stated Objective - Vital Signs/Intake and Output Vital Signs (last 24 hours): Temp Pulse Resp BP Pulse Ox 97.5 F L 62 18 195/94 H 99 12/24/18 12:33 12/24/18 12:33 12/24/18 12:33 12/24/18 12:33 12/24/18 00:20 Intake and Output: 12/24/18 12/24/18 06:59 18:59 Intake Total 380 Output Total 200 Balance 180 - Medications Medications: Current Medications Acetaminophen (Tylenol 325mg Tab) 650 mg PO Q6H PRN PRN Reason: Pain, Mild (1-3) Last Admin: 12/23/18 10:32 Dose: 650 mg Albuterol/Ipratropium (Duoneb 3 Mg/0.5 Mg (3 Ml) Ud) 3 ml IH Q2H PRN PRN Reason: Shortness of Breath Last Admin: 12/23/18 12:41 Dose: 3 ml Albuterol/Ipratropium (Duoneb 3 Mg/0.5 Mg (3 Ml) Ud) 3 ml IH [id number] [facility] Last Admin: 12/24/18 11:11 Dose: 3 ml Apixaban (Eliquis) 2.5 mg PO BID [facility]; Protocol Atorvastatin Calcium (Lipitor) 40 mg PO HS [facility] Last Admin: 12/23/18 21:16 Dose: 40 mg Budesonide (Pulmicort Respules) 0.5 mg IH [id number] [facility] Last Admin: 12/24/18 07:24 Dose: 0.5 mg Dextrose (Dextrose 50% Inj) 0 ml IV STAT PRN; Protocol PRN Reason: Hypoglycemia Protocol Folic Acid (Folic Acid) 1 mg PO DAILY [facility] Last Admin: 12/24/18 11:33 Dose: 1 mg Furosemide (Lasix) 40 mg IV BID [facility] Stop: 12/24/18 23:59 Last Admin: 12/24/18 11:34 Dose: 40 mg Furosemide (Lasix) 40 mg PO 0800,1400 [facility] Dextrose (Dextrose 5% In Water 1000 Ml) 1,000 mls @ 0 mls/hr IV .Q0M PRN; Protocol PRN Reason: Hypoglycemia Protocol Azithromycin (Zithromax 500mg In Ns) 500 mg in 250 mls @ 167 mls/hr IVPB DAILY [facility]; Protocol Last Admin: 12/24/18 11:46 Dose: 167 mls/hr Ceftriaxone Sodium (Rocephin 1 Gram Ivpb) 1 gm in 100 mls @ 100 mls/hr IVPB DAILY [facility]; Protocol Last Admin: 12/24/18 11:47 Dose: 100 mls/hr Insulin Human Lispro (Humalog Med) 0 units SC ACHS [facility]; Protocol Last Admin: 12/24/18 09:01 Dose: 5 u Lisinopril (Zestril) 20 mg PO DAILY [facility] Last Admin: 12/24/18 11:36 Dose: 20 mg Methylprednisolone (Solu-Medrol) 20 mg IVP Q12H [facility] Metoprolol Tartrate (Lopressor) 50 mg PO BID [facility] Last Admin: 12/24/18 11:32 Dose: 50 mg Montelukast Sodium (Singulair) 10 mg PO HS [facility] Last Admin: 12/23/18 21:16 Dose: 10 mg Nifedipine (Procardia Xl) 30 mg PO DAILY [facility] Oxycodone/Acetaminophen (Percocet 5/325 Mg Tab) 1 tab PO Q8H PRN PRN Reason: Pain, severe (8-10) Stop: 12/25/18 15:08 Last Admin: 12/23/18 21:36 Dose: 1 tab Pantoprazole Sodium (Protonix Inj) 40 mg IVP Q12 [facility] Last Admin: 12/24/18 11:35 Dose: 40 mg Pregabalin (Lyrica) 75 mg PO BID [facility] Last Admin: 12/24/18 11:33 Dose: 75 mg Sodium Polystyrene Sulfonate (Kayexalate) 15 gm PO ONCE ONE Stop: 12/24/18 13:01 - Labs Labs: 12/24/18 07:00 12/24/18 12:15 PT 24.3 SECONDS (9.4-12.5) H 12/21/18 19:10 INR 2.19 12/21/18 19:10 APTT 32.4 Seconds (26.9-38.3) 12/21/18 19:10 - Constitutional Appears: Non-toxic, No Acute Distress - Eye Exam Eye Exam: EOMI, PERRL - ENT Exam ENT Exam: Mucous Membranes Moist - Respiratory Exam Respiratory Exam: Clear to Ausculation Bilateral. absent: Rales, Rhonchi, Wheezes - Cardiovascular Exam Cardiovascular Exam: RRR, +S1, +S2 - GI/Abdominal Exam GI & Abdominal Exam: Soft, Normal Bowel Sounds. absent: Distended, Firm, Guarding, Rigid, Tenderness, Organomegaly - Extremities Exam Extremities Exam: Normal Inspection. absent: Pedal Edema - Neurological Exam Neurological Exam: Alert, Awake, Oriented x3 - Psychiatric Exam Psychiatric exam: Normal Affect, Normal Mood - Skin Skin Exam: Dry, Warm Assessment and Plan - Assessment and Plan (Free Text) Assessment: Patient is a 73yo female with PMHx significant for COPD, Atrial fibrillation on Eliquis, Diastolic CHF, pulmonary hypertension, MR and TR, CKD, CAD who presented with anemia and dyspnea -Anemia, cannot rule out acute blood loss suspected -Elevated LFTs -COPD -Atrial fibrillation on Eliquis -CHF -CAD Plan: -Despite thorough education and explanation patient adamantly refusing any endoscopic interventions; patient understands risks of not proceeding if indeed gastrointestinal bleeding is the etiology of her anemia - this included explanation of worsening cardiac and pulmonary function due to added strain on these organs in the setting of anemia; patient understands and continues to refuse further intervention -Recommend medical management of her ongoing issues and risk/benefit on the part of the patient's primary team regarding resumption of antiplatelet/anticoagulants -Diet as tolerated -Autoimmune work up regarding LFTs pending -Hepatitis serologies unremarkable (October 2018) -U/S reviewed with noted steatosis - elevated LFTs possibly a result of NAFLD <Keegan Miranda V - Last Filed: 12/25/18 20:57> Objective - Vital Signs/Intake and Output Vital Signs (last 24 hours): Temp Pulse Resp BP Pulse Ox 98.2 F 62 20 152/78 H 100 12/24/18 23:58 12/25/18 02:00 12/24/18 23:58 12/24/18 23:58 12/24/18 23:58 Intake and Output: 12/24/18 12/25/18 18:59 06:59 Intake Total 360 120 Output Total 300 200 Balance 60 -80 - Medications Medications: Current Medications Acetaminophen (Tylenol 325mg Tab) 650 mg PO Q6H PRN PRN Reason: Pain, Mild (1-3) Last Admin: 12/23/18 10:32 Dose: 650 mg Albuterol/Ipratropium (Duoneb 3 Mg/0.5 Mg (3 Ml) Ud) 3 ml IH Q2H PRN PRN Reason: Shortness of Breath Last Admin: 12/23/18 12:41 Dose: 3 ml Albuterol/Ipratropium (Duoneb 3 Mg/0.5 Mg (3 Ml) Ud) 3 ml IH [id number] [facility] Last Admin: 12/25/18 04:50 Dose: 3 ml Apixaban (Eliquis) 2.5 mg PO BID [facility]; Protocol Last Admin: 12/24/18 17:31 Dose: 2.5 mg Atorvastatin Calcium (Lipitor) 40 mg PO HS [facility] Last Admin: 12/24/18 22:21 Dose: 40 mg Azithromycin (Zithromax) 500 mg PO DAILY [facility] Budesonide (Pulmicort Respules) 0.5 mg IH [id number] [facility] Last Admin: 12/24/18 21:02 Dose: 0.5 mg Cefpodoxime Proxetil (Vantin) 200 mg PO DAILY [facility] Dextrose (Dextrose 50% Inj) 0 ml IV STAT PRN; Protocol PRN Reason: Hypoglycemia Protocol Folic Acid (Folic Acid) 1 mg PO DAILY [facility] Last Admin: 12/24/18 11:33 Dose: 1 mg Furosemide (Lasix) 40 mg PO 0800,1400 [facility] Dextrose (Dextrose 5% In Water 1000 Ml) 1,000 mls @ 0 mls/hr IV .Q0M PRN; Protocol PRN Reason: Hypoglycemia Protocol Insulin Human Lispro (Humalog Med) 0 units SC ACHS [facility]; Protocol Last Admin: 12/24/18 22:20 Dose: 2 u Lisinopril (Zestril) 20 mg PO DAILY [facility] Last Admin: 12/24/18 11:36 Dose: 20 mg Methylprednisolone (Solu-Medrol) 20 mg IVP Q12H [facility] Last Admin: 12/25/18 05:23 Dose: 20 mg Metoprolol Tartrate (Lopressor) 50 mg PO BID [facility] Last Admin: 12/24/18 17:31 Dose: 50 mg Montelukast Sodium (Singulair) 10 mg PO HS [facility] Last Admin: 12/24/18 22:21 Dose: 10 mg Nifedipine (Procardia Xl) 30 mg PO DAILY [facility] Oxycodone/Acetaminophen (Percocet 5/325 Mg Tab) 1 tab PO Q8H PRN PRN Reason: Pain, severe (8-10) Stop: 12/25/18 15:08 Last Admin: 12/23/18 21:36 Dose: 1 tab Pantoprazole Sodium (Protonix Inj) 40 mg IVP Q12 [facility] Last Admin: 12/24/18 22:20 Dose: 40 mg Pregabalin (Lyrica) 75 mg PO BID [facility] Last Admin: 12/24/18 17:31 Dose: 75 mg - Labs Labs: 12/24/18 07:00 12/24/18 12:15 PT 24.3 SECONDS (9.4-12.5) H 12/21/18 19:10 INR 2.19 12/21/18 19:10 APTT 32.4 Seconds (26.9-38.3) 12/21/18 19:10 Attending/Attestation - Attestation I have personally seen and examined this patient.: Yes I have fully participated in the care of the patient.: Yes I have reviewed all pertinent clinical information, including history, physical exam and plan: Yes Notes (Text): Patient was seen and evaluated along with the fellow earlier. This is an addendum to the GI progress report dictated by the fellow. Once again we had a detailed discussion with the patient regarding work-up. Patient was refusing CAT scan no endoscopy or colonoscopy. History of chronic A. fib pulmonary hypertension coronary artery disease high risk patient for thromboembolic event. The patient was placed on Eliquis and noticed have significant drop in blood count . Patient is also high risk for endoscopy evaluation. 12/25/18 06:19 12/25/18 20:55
--- NOTE | 2018-12-24 14:24 | CP.PCM.PN ---
Subjective - Date & Time of Evaluation Date of Evaluation: 12/24/18 Time of Evaluation: 14:21 - Subjective Subjective: Patient seen and examined. Reports ankle pain. Denies resp complaints. Tolerated BIPAP last night. Objective - Vital Signs/Intake and Output Vital Signs (last 24 hours): Temp Pulse Resp BP Pulse Ox 97.5 F L 62 18 195/94 H 99 12/24/18 12:33 12/24/18 12:33 12/24/18 12:33 12/24/18 12:33 12/24/18 00:20 Intake and Output: 12/24/18 12/24/18 06:59 18:59 Intake Total 380 Output Total 200 Balance 180 - Medications Medications: Current Medications Acetaminophen (Tylenol 325mg Tab) 650 mg PO Q6H PRN PRN Reason: Pain, Mild (1-3) Last Admin: 12/23/18 10:32 Dose: 650 mg Albuterol/Ipratropium (Duoneb 3 Mg/0.5 Mg (3 Ml) Ud) 3 ml IH Q2H PRN PRN Reason: Shortness of Breath Last Admin: 12/23/18 12:41 Dose: 3 ml Albuterol/Ipratropium (Duoneb 3 Mg/0.5 Mg (3 Ml) Ud) 3 ml IH [id number] [facility] Last Admin: 12/24/18 11:11 Dose: 3 ml Apixaban (Eliquis) 2.5 mg PO BID [facility]; Protocol Atorvastatin Calcium (Lipitor) 40 mg PO HS [facility] Last Admin: 12/23/18 21:16 Dose: 40 mg Azithromycin (Zithromax) 500 mg PO DAILY [facility] Budesonide (Pulmicort Respules) 0.5 mg IH [id number] [facility] Last Admin: 12/24/18 07:24 Dose: 0.5 mg Cefpodoxime Proxetil (Vantin) 200 mg PO DAILY [facility] Dextrose (Dextrose 50% Inj) 0 ml IV STAT PRN; Protocol PRN Reason: Hypoglycemia Protocol Folic Acid (Folic Acid) 1 mg PO DAILY [facility] Last Admin: 12/24/18 11:33 Dose: 1 mg Furosemide (Lasix) 40 mg IV BID [facility] Stop: 12/24/18 23:59 Last Admin: 12/24/18 11:34 Dose: 40 mg Furosemide (Lasix) 40 mg PO 0800,1400 [facility] Dextrose (Dextrose 5% In Water 1000 Ml) 1,000 mls @ 0 mls/hr IV .Q0M PRN; Protocol PRN Reason: Hypoglycemia Protocol Insulin Human Lispro (Humalog Med) 0 units SC ACHS [facility]; Protocol Last Admin: 12/24/18 09:01 Dose: 5 u Lisinopril (Zestril) 20 mg PO DAILY [facility] Last Admin: 12/24/18 11:36 Dose: 20 mg Methylprednisolone (Solu-Medrol) 20 mg IVP Q12H [facility] Metoprolol Tartrate (Lopressor) 50 mg PO BID [facility] Last Admin: 12/24/18 11:32 Dose: 50 mg Montelukast Sodium (Singulair) 10 mg PO HS [facility] Last Admin: 12/23/18 21:16 Dose: 10 mg Nifedipine (Procardia Xl) 30 mg PO DAILY [facility] Oxycodone/Acetaminophen (Percocet 5/325 Mg Tab) 1 tab PO Q8H PRN PRN Reason: Pain, severe (8-10) Stop: 12/25/18 15:08 Last Admin: 12/23/18 21:36 Dose: 1 tab Pantoprazole Sodium (Protonix Inj) 40 mg IVP Q12 [facility] Last Admin: 12/24/18 11:35 Dose: 40 mg Pregabalin (Lyrica) 75 mg PO BID [facility] Last Admin: 12/24/18 11:33 Dose: 75 mg - Labs Labs: 12/24/18 07:00 12/24/18 12:15 PT 24.3 SECONDS (9.4-12.5) H 12/21/18 19:10 INR 2.19 12/21/18 19:10 APTT 32.4 Seconds (26.9-38.3) 12/21/18 19:10 - Constitutional Appears: Non-toxic, No Acute Distress - Head Exam Head Exam: NORMAL INSPECTION - Eye Exam Eye Exam: Normal appearance - ENT Exam ENT Exam: Mucous Membranes Moist - Respiratory Exam Respiratory Exam: Clear to Ausculation Bilateral, NORMAL BREATHING PATTERN - Cardiovascular Exam Cardiovascular Exam: REGULAR RHYTHM, +S1, +S2 - GI/Abdominal Exam GI & Abdominal Exam: Soft, Normal Bowel Sounds - Extremities Exam Extremities Exam: Full ROM, Normal Inspection - Neurological Exam Neurological Exam: Alert, Awake, Oriented x3 - Psychiatric Exam Psychiatric exam: Normal Mood - Skin Skin Exam: Normal Color, Warm Assessment and Plan - Assessment and Plan (Free Text) Assessment: 73yo female with PMHx of COPD, CHARLES, with COPD exacerbation, anemia COPD exacerbation - currently afebrile, HD stable comfortable in NAD Recommend: - supp o2 as needed, duonebs PRN, goal sat 90% - Rocephin, Azithro - Solumedrol 20mg IV BID - BIPAP QHS - Pulmicort - DVT ppx, ELiquis - Stable
--- NOTE | 2018-12-24 16:02 | PN ---
DATE: 12/24/2018 SUBJECTIVE: The patient is 73-year-old, seen and examined. Has mild shortness of breath. Eating and tolerating. No chest pain. No shortness of breath. PHYSICAL EXAMINATION: VITAL SIGNS: She is afebrile. Pulse 60, respiration 18 and blood pressure 170/67. LUNGS: Bilateral soft crackle at bases. HEART: S1 and S2, audible. ABDOMEN: Soft, obese and nontender. No rebound. No guarding. NEUROLOGIC: The patient is awake, alert and able to communicate. EXTREMITIES: Bilateral leg +1 edema. LABORATORY DATA: WBC 8.5, hemoglobin 11.2, hematocrit 38 and platelet of 220. Chemistry: Sodium 143, potassium 5.4, chloride 99, CO2 of 34, BUN 48, creatinine 2.3, blood sugar of 289 and 284. She had x-ray of chest done that shows no active disease. She has abdominal ultrasound done that shows hepatomegaly and fatty liver, otherwise unremarkable. ASSESSMENT: 1. Symptomatic anemia, etiology unclear. The patient is refusing endoscopy and colonoscopy. CT scan was unremarkable. 2. Chronic atrial fibrillator. 3. Congestive heart failure. 4. Pulmonary hypertension. 5. Chronic kidney disease. PLAN: The patient is currently on Lasix 40 mg twice a day. We will start her back on Eliquis. Continue her on Protonix. Currently, she is on prednisone. I will cut down the dose since her lungs are clear. We will restart her on Eliquis and getting out of bed to chair and physical therapy. Followup her electrolyte. We will followup the patient in a.m. Laurel Schultz MD
--- NOTE | 2018-12-24 17:53 | PN ---
DATE: 12/24/2018 REASON FOR CONSULTATION AND FOLLOWUP: Cardiac evaluation, history of coronary artery disease, history of CABG, history of PTCA, history pulmonary hypertension, history of atrial fibrillation, status post pacemaker, admitted with generalized weakness and anemia ("yesterday's progress note typo mentioned generalized witnessed seizure, which is not correct"). SUBJECTIVE: The patient denies any chest pain, shortness or breath or any palpitation. PHYSICAL EXAMINATION: GENERAL: Not in apparent distress. VITAL SIGNS: Temperature afebrile, heart rate 60, blood pressure 149/70. HEENT: PERRLA. Extraocular muscles intact. NECK: Supple. No carotid bruits. No thyromegaly. CHEST: Clear to auscultation. HEART: S1 and S2 regular. ABDOMEN: Soft. EXTREMITIES: Clubbing, cyanosis negative. LABORATORY DATA: Blood workup as follows. WBC 8.5, hemoglobin 11.2, hematocrit 38, platelet count 220. Chemistries show sodium 142, potassium 4.6, chloride 101, carbon dioxide of 36, anion gap of 10, BUN 41 and creatinine 2.3. IMPRESSION: A 73-year-old female with a past medical history significant for coronary artery disease status post coronary artery bypass surgery on 06/11/2013 at [facility], history of angioplasty of right coronary artery, history of angioplasty, history of atrial fibrillation status post sick sinus syndrome, status post permanent pacemaker. Last catheterization revealed patent four-vessel bypass, left internal mammary artery to left anterior descending artery, saphenous vein graft to right coronary artery, saphenous vein graft to the diagonal and obtuse marginal . Last catheterization with coronary artery bypass surgery at 06/14/2013. History of percutaneous transluminal coronary angioplasty in the past. Last echo on admission 09/06/2018 shows normal left ventricular ejection fraction 55 to 60%. Right ventricular systolic pressure is moderate tricuspid regurgitation, mild aortic stenosis, mild mitral to mild to moderate tricuspid regurgitation. Mild to moderate mitral stenosis, mitral valve 11.9 cm2. History of severe anemia, admitted with generalized weakness with hemoglobin 6.7 status post four units of blood; now hemoglobin is 11 today. The patient was on Eliquis and Revatio for pulmonary hypertension. Eliquis for atrial fibrillation is on hold because of anemia (yesterday in the progress note in the beginning mentioned generalized witnessed seizure, which is a typo). The patient did not have a generalized witnessed seizure but the patient had generalized weakness on admission. History of angioplasty of [place] right graft to the right coronary artery occluded. History of chronic renal insufficiency and history of pulmonary hypertension. RECOMMENDATION: Continue Lasix. Will change to p.o. and possible discharge planning. H and H remain stable and no further episode of bleeding noted. Consider restarting Eliquis. Follow up stool guaiac; we will send stool guaiac if not sent yet. We will send today and tomorrow as well. We will repeat potassium tomorrow for hyperkalemia. In phase of renal insufficiency, we will hold lisinopril because of renal insufficiency as well as hyperkalemia and start nifedipine. Possibly the hyperkalemia is also secondary to steroids. We will repeat the lab tomorrow. If the renal insufficiency gets worse, we will consider holding lisinopril, otherwise will add on Nifedipine. Start 30 mg stat now. Thank you Dr. Schultz for providing us the opportunity in taking care of this patient, Sobeida Emerson. Sapna Latif MD
[2018-12-25] MEDS: Albuterol-Ipratrop 3 mg / 0.5 (3 ml) UD IH SCH ×6 (04:50→23:10)
[2018-12-25] MEDS: MethylPREDNISolone 40 mg Vial IVP SCH ×2 (05:23→12:31)
[2018-12-25 07:12] LABS: ALB/GLOB RATIO 1.2 (1.1-1.8); ALBUMIN 3.4 g/dL (3.0-4.8); CALCIUM 8.7 mg/dL (8.4-10.5)
[2018-12-25 07:18] LABS: BASO # 0.03 K/mm3 (0.0-2.0); BASO % 0.3 % (0.0-3.0); EOS # 0.1 (0.0-0.7); EOS % 1.3 % (1.5-5.0); HEMOGLOBIN 9.8 g/dL (12.0-16.0); MEAN CELL VOLUME 94.6 fl (80.0-105.0); MEAN CORPUSCULAR HEMOGLOBIN 28.1 pg (25.0-35.0); MEAN CORPUSCULAR HGB CONC 29.7 g/dl (31.0-37.0); MONO # 0.7 (0.1-0.6); MONO % 7.2 % (1.0-6.0); PLATELET COUNT 199 10^3/uL (120.0-450.0); RBC 3.49 10^6/uL (3.5-6.1); RED CELL DISTRIBUTION WIDTH 21.9 % (11.5-14.5); WHITE BLOOD COUNT 9.5 10^3/uL (4.5-11.0)
[2018-12-25] MEDS: Budesonide 0.5 mg/2 ml Inhal Susp UD IH SCH ×2 (07:46→19:19)
[2018-12-25] MEDS: Insulin Lispro (humaLOG) MEDIUM Coverage SC SCH ×4 (09:12→23:28)
[2018-12-25] MEDS: Cefpodoxime (Vantin) 200 mg Tab PO SCH (09:13)
[2018-12-25] MEDS ORDERED: NIFEdipine 30 mg ER Tab PO SCH (10:00)
[2018-12-25] MEDS: Albuterol-Ipratrop 3 mg / 0.5 (3 ml) UD IH PRN (10:03)
[2018-12-25] MEDS: NIFEdipine 60 mg ER Tab PO SCH (10:36)
--- NOTE | 2018-12-25 14:08 | PN ---
DATE: 12/25/2018 SUBJECTIVE: The patient is 73-year-old, seen and examined. Seems to be doing much better. Sitting in chair. Still has shortness of breath. PHYSICAL EXAMINATION: VITAL SIGNS: She is afebrile. Pulse 70, respiration 22 and blood pressure 155/69. LUNGS: Bilateral diffusely increased breath sounds. HEART: S1 and S2, audible. ABDOMEN: Soft, obese and nontender. No rebound. No guarding. NEUROLOGIC: The patient is awake, alert and able to communicate. LABORATORY DATA: WBC 9.5, hemoglobin 9.8, hematocrit 33 and platelet 199. Chemistry: Sodium 140, potassium 5.0, chloride 99, CO2 of 34, BUN 61, creatinine 2.6 and blood sugar 405. She has abdominal sonogram done that shows hepatic acidosis, otherwise unremarkable. ASSESSMENT: 1. Status post symptomatic anemia. 2. History of congestive heart failure, acute on chronic systolic. 3. Chronic obstructive pulmonary disease. I had discussion with daughter who she lives with. She states that a day prior to coming to the hospital, her mom had bowel movement, she wiped her rectal area that have started to bleed, did not tell anybody, but when she came in the room she end up cleaning lot of blood that she lost. The patient has been refusing endoscopy and colonoscopy, to look in to the source of blood loss. Her CT scan is unremarkable. PLAN: We will discontinue telemetry. Continue nebulizer treatment, she has been restarted on Eliquis. I will continue her IV steroids. She has been changed it to Vantin and Zithromax. We will followup her CBC and CMP. If she remains stable, discharge plan for the morning. Laurel Schultz MD
--- NOTE | 2018-12-25 14:17 | PN ---
DATE: 12/25/2018 REASON FOR CONSULTATION: Followup cardiac evaluation, history of coronary artery disease, history of CABG, history of PTCA, history of pulmonary hypertension, history of atrial fibrillation, status post pacemaker, admitted with generalized weakness, severe anemia status post four units of packed RBC. SUBJECTIVE: The patient feels a lot better. The patient wants to go home. Denies any chest pain, shortness or breath, or any palpitation. Lying flat on the bed. Not in apparent distress. PHYSICAL EXAMINATION: As follows: VITAL SIGNS: Temperature afebrile, heart rate 75, blood pressure 136/76. HEENT: PERRLA. Extraocular muscles intact. NECK: Supple. No carotid bruits. No thyromegaly. CHEST: Clear to auscultation. HEART: S1 and S2, regular. ABDOMEN: Soft. EXTREMITIES: Clubbing, cyanosis negative. LABORATORY DATA: WBC 9.5, hemoglobin 9.8, hematocrit 33, platelet count 199. Chemistries show sodium 140, potassium 5, chloride 99, carbon dioxide 34, anion gap of 12, BUN 61, creatinine 2.6. IMPRESSION: A 73-year-old female with past medical history significant for sick sinus syndrome, chronic atrial fibrillation, status post pacemaker, was on anticoagulation; history of coronary artery disease, coronary artery bypass graft on 06/11/2013; four-vessel bypass, left internal mammary artery to left anterior descending artery, saphenous vein graft to right coronary artery, saphenous vein graft to obtuse marginal 1 and obtuse marginal 2, who had cardiac catheterization done recently and then intervention of right coronary artery, as saphenous vein graft to right coronary artery was occluded. Admitted with generalized weakness, hemoglobin on admitting was 6.7 status post four units of red blood cells, yesterday hemoglobin was 11 which is probably possibly elevated, today is 9.8. Rule out gastrointestinal bleed, history of mild mitral stenosis, valve area 1.9 sq cm, [id number] mitral stenosis, history of pulmonary hypertension, mild aortic stenosis, [id number] tricuspid regurgitation. Admitted with anemia. The patient was on Eliquis and Revatio for pulmonary hypertension. Admitted with generalized weakness, found to be severe anemic status post four units of red blood cells. RECOMMENDATIONS: Continue gentle Lasix. Followup stool guaiac sent yesterday. We will repeat again stool guaiac. Started nifedipine and is not actively bleeding. We will resume back Eliquis, resume back p.o. Lasix. Continue metoprolol 50 mg b.i.d. Continue nifedipine. If requires more, we will give 60 mg nifedipine. Monitor closely the blood pressure and we will follow with you. If the kidney function gets worse, consider holding DANIEL inhibitors. We will discontinue telemetry and repeat the blood workup in the morning. The patient needs very close followup. We will repeat stool for guaiac test today again. Creatinine jumped today to 2.6, so we will hold lisinopril and increase nifedipine to 60 mg. We will discontinue lisinopril because of the worsening renal insufficiency. We will discuss with Dr. Schultz. We will put the holding parameters, hold nifedipine XL 60 mg for systolic blood pressure less than or equal to 130. DISCHARGE PLANNING: Also, the patient has hyperkalemia and worsening renal insufficiency, so we will stop lisinopril and continue nifedipine. We will send another stool sample for guaiac occult blood to rule out gastrointestinal bleed. Thank you Dr. Schultz for providing us the opportunity in taking care of this patient, Ki Vidales. Sapna Latif MD
[2018-12-26] MEDS: MethylPREDNISolone 40 mg Vial IVP SCH (00:18)
[2018-12-26] MEDS: Albuterol-Ipratrop 3 mg / 0.5 (3 ml) UD IH SCH ×3 (03:08→11:40)
[2018-12-26 06:57] LABS: HEMOGLOBIN 9.7 g/dL (12.0-16.0); LYMPH # 0.6 (1.2-3.4); LYMPH % 6.7 % (22.0-35.0); MONO # 0.3 (0.1-0.6); MONO % 4.1 % (1.0-6.0); PLATELET COUNT 197 10^3/uL (120.0-450.0); RBC 3.59 10^6/uL (3.5-6.1); WHITE BLOOD COUNT 8.3 10^3/uL (4.5-11.0)
--- NOTE | 2018-12-26 07:05 | CP.PCM.PN ---
Subjective - Date & Time of Evaluation Date of Evaluation: 12/26/18 Time of Evaluation: 06:42 - Subjective Subjective: Awake, alert, no distress Reason for consultation and follow up: Cardiac evaluation and follow up; history of coronary artery disease post CABG, post stents, pulmonary hypertension, atrial fibrillation, PPM Seen and examined by me and Dr. Latif Objective - Vital Signs/Intake and Output Vital Signs (last 24 hours): Temp Pulse Resp BP Pulse Ox 98.1 F 77 20 170/76 H 99 12/25/18 23:00 12/25/18 23:11 12/25/18 23:00 12/25/18 23:00 12/25/18 23:00 Intake and Output: 12/25/18 12/26/18 18:59 06:59 Intake Total 849 660 Output Total 925 Balance 849 -265 - Medications Medications: Current Medications Acetaminophen (Tylenol 325mg Tab) 650 mg PO Q6H PRN PRN Reason: Pain, Mild (1-3) Last Admin: 12/23/18 10:32 Dose: 650 mg Albuterol/Ipratropium (Duoneb 3 Mg/0.5 Mg (3 Ml) Ud) 3 ml IH Q2H PRN PRN Reason: Shortness of Breath Last Admin: 12/25/18 10:03 Dose: 3 ml Albuterol/Ipratropium (Duoneb 3 Mg/0.5 Mg (3 Ml) Ud) 3 ml IH [id number] [facility] Last Admin: 12/26/18 03:08 Dose: 3 ml Apixaban (Eliquis) 2.5 mg PO BID [facility]; Protocol Last Admin: 12/25/18 17:12 Dose: 2.5 mg Atorvastatin Calcium (Lipitor) 40 mg PO HS [facility] Last Admin: 12/25/18 21:54 Dose: 40 mg Azithromycin (Zithromax) 500 mg PO DAILY [facility] Last Admin: 12/25/18 09:13 Dose: 500 mg Budesonide (Pulmicort Respules) 0.5 mg IH [id number] [facility] Last Admin: 12/25/18 19:19 Dose: 0.5 mg Cefpodoxime Proxetil (Vantin) 200 mg PO DAILY [facility] Last Admin: 12/25/18 09:13 Dose: 200 mg Dextrose (Dextrose 50% Inj) 0 ml IV STAT PRN; Protocol PRN Reason: Hypoglycemia Protocol Folic Acid (Folic Acid) 1 mg PO DAILY [facility] Last Admin: 12/25/18 09:13 Dose: 1 mg Furosemide (Lasix) 40 mg PO 0800,1400 [facility] Last Admin: 12/25/18 14:40 Dose: 40 mg Dextrose (Dextrose 5% In Water 1000 Ml) 1,000 mls @ 0 mls/hr IV .Q0M PRN; Protocol PRN Reason: Hypoglycemia Protocol Insulin Human Lispro (Humalog Med) 0 units SC ACHS [facility]; Protocol Last Admin: 12/25/18 23:28 Dose: 2 u Lisinopril (Zestril) 20 mg PO DAILY [facility] Last Admin: 12/25/18 09:13 Dose: 20 mg Methylprednisolone (Solu-Medrol) 20 mg IVP Q12H [facility] Last Admin: 12/26/18 00:18 Dose: 20 mg Metoprolol Tartrate (Lopressor) 50 mg PO BID [facility] Last Admin: 12/25/18 17:11 Dose: 50 mg Montelukast Sodium (Singulair) 10 mg PO HS [facility] Last Admin: 12/25/18 21:55 Dose: 10 mg Nifedipine (Procardia Xl) 60 mg PO DAILY [facility] Last Admin: 12/25/18 10:36 Dose: 60 mg Pantoprazole Sodium (Protonix Inj) 40 mg IVP Q12 [facility] Last Admin: 12/25/18 21:55 Dose: 40 mg Pregabalin (Lyrica) 75 mg PO BID [facility] Last Admin: 12/25/18 17:11 Dose: 75 mg - Labs Labs: 12/25/18 06:20 12/25/18 06:20 PT 24.3 SECONDS (9.4-12.5) H 12/21/18 19:10 INR 2.19 12/21/18 19:10 APTT 32.4 Seconds (26.9-38.3) 12/21/18 19:10 - Constitutional Appears: Non-toxic, No Acute Distress - Head Exam Head Exam: NORMAL INSPECTION, NORMOCEPHALIC - Eye Exam Eye Exam: Normal appearance Pupil Exam: NORMAL ACCOMODATION - ENT Exam ENT Exam: Mucous Membranes Moist, Normal Exam - Respiratory Exam Respiratory Exam: Decreased Breath Sounds, Clear to Ausculation Bilateral, NORMAL BREATHING PATTERN - Cardiovascular Exam Cardiovascular Exam: +S1, +S2 Additional comments: PPM - GI/Abdominal Exam GI & Abdominal Exam: Soft, Normal Bowel Sounds - Extremities Exam Extremities Exam: Full ROM, Normal Capillary Refill - Neurological Exam Neurological Exam: Alert, Awake, Oriented x3 - Psychiatric Exam Psychiatric exam: Normal Affect, Normal Mood - Skin Skin Exam: Dry, Normal Color, Warm Assessment and Plan - Assessment and Plan (Free Text) Assessment: A 73 year old obese female who came in to the ER due to generalized weakness. In ER, found to have 6.7 of hemoglobin. Post transfusion of 4 units PRBC. History of coronary artery disease, post CABG in 05/2013, post stents/PTCA, permanent pacemaker for sick sinus syndrome, chronic atrial fibrillation (on Eliquis), COPD,CHF,diabetes,iron deficiency anemia,arthritis,anxiety, renal insufficiency. Cardiac cath done on 06/23/2016 showed [place] 3 vessel coronary disease, Patent LAI to LAD,Patent SCG to D1 but Y sequential to OM1 in not functioning well, patent SVG to RPDA,Patent stent in proximal RCA, LVEF 45%, isc hemic cardiomyopathy, mild to moderate MR by echo, moderate to severe TR with severe pulmonary hypertension, put on Revatio. Echo done on 10/19/18 showed mild to moderate concentric LVH, LVEF 55-60%,trace aortic regurgitation,trace MR, mild tricuspid TR, RVSP 55 mmHg, mild to moderate pulmonary hypertension. Admitted for anemia. GI on consult. Hemoglobin stable. Refusing EGD/colonoscopy. She wanted to go home. Discharge planning. Plan: No distress, wanted to go home Heart rate stable Blood pressure stable Cardiac status stable On Eliquis 2.5 mg BID, Lipitor 40 mg daily, Lasix 40 mg BID, Solumedrol 20 mg every 12 hours Procardia 60 mg daily Discontinue Lisinopril due to renal insufficiency Closely follow up renal function and H/H Continue current treatment Continue current medications GI On consult, refusing EGD/colonoscopy Will follow up Plan and treatment discussed with Dr. Latif
[2018-12-26] MEDS: Insulin Lispro (humaLOG) MEDIUM Coverage SC SCH ×2 (07:11→12:58)
[2018-12-26 07:34] LABS: CALCIUM 8.7 mg/dL (8.4-10.5)
[2018-12-26] MEDS: Budesonide 0.5 mg/2 ml Inhal Susp UD IH SCH (07:46)
[2018-12-26 08:24] VITALS: BP 170/71; PULSE 60; RESP 19; TEMP 98.2; O2SAT 100
[2018-12-26] MEDS: Cefpodoxime (Vantin) 200 mg Tab PO SCH (09:49)
[2018-12-26] MEDS: NIFEdipine 60 mg ER Tab PO SCH (09:49)
--- NOTE | 2018-12-27 03:32 | DS ---
HISTORY OF PRESENT ILLNESS: The patient is a 73-year-old who was seen in my office 2 days prior to coming to the ER on 12/22/2018. She found to have hemoglobin of 6.6. She was complaining of feeling very weak, demented, lightheaded according to her daughter. She had constipated stool and end up having lot of rectal bleeding but she never told any body; however, she was found later on in the bathroom. However, the patient was admitted in ICU, she was given 2 blood transfusion under cover Lasix but following day, her hemoglobin was still 7.4. She was given another third blood transfusion. GI consult was done. The patient refused to go for endoscopy and colonoscopy because of increase comorbidities. The patient had CT scan of the abdomen and pelvis done that was found to be unremarkable. She did well. She was monitored closely and got nebulizer treatment. Her blood sugar was closely monitored, did well, anxious to go home. Today, she was seen and examined. PHYSICAL EXAMINATION: VITAL SIGNS: She is afebrile, pulse 60, respirations 19, blood pressure 170/71. LUNGS: Bilateral fair airflow. No rhonchi or crackle. HEART: S1, S2 audible. ABDOMEN: Soft, obese, nontender. No rebound. No guarding. NEUROLOGIC: The patient is awake and alert, able to communicate. LABORATORY EXAMINATION: WBC 8.3, hemoglobin 9.7, hematocrit 33.4, platelet 197. PT 24.3, INR 2.19. Chemistry: Sodium 139, potassium 5.5, chloride 98, CO2 of 35, BUN 70, creatinine 2.2, blood sugar 374. ASSESSMENT: 1. Status post symptomatic anemia, status post blood transfusion, etiology unclear. 2. Chronic atrial fibrillation. 3. Pulmonary hypertension. 4. Chronic obstructive pulmonary disease. 5. Coronary artery disease. 6. Acute on chronic anemia. 7. Acute on chronic renal failure. 8. Insulin-dependent diabetes. PLAN: The patient is being discharged home today. She will resume all her medication as prior to admission. She will only get prednisone 20 daily for 5 more days. She will go back to her Eliquis 2.5 twice a day, atorvastatin 40 mg daily, folic acid 1 mg daily, lisinopril 20 mg daily, she is on metoprolol 50 twice a day, Lyrica 75 twice a day, Singulair 10 mg daily, Revatio 20 mg twice a day, Aldactone and metolazone intermittently needs her leg were swollen. Follow the patient in office in 2 weeks. Laurel Schultz MD
== END 2018-12-26 14:08 | disposition home or self-care (01) | DRG 393 ==
LOC: ED 17:52 → ERH 20:33 → CCU 22:55 → 2RNO 12-24 00:31 → 5RNO 12-25 14:13
PROVIDERS: ADMIT Internal Medicine; ATTEND Internal Medicine
PROC: 30233N1 Transfusion of Nonautologous Red Blood Cells into Peripheral Vein, Percutaneous Approach (ICD-10-PCS; principal; 2018-12-21)
PROC: 5A09457 Assistance with Respiratory Ventilation, 24-96 Consecutive Hours, Continuous Positive Airway Pressure (ICD-10-PCS; 2018-12-22)
PROC: 3E0F7GC Introduction of Other Therapeutic Substance into Respiratory Tract, Via Natural or Artificial Opening (ICD-10-PCS; 2018-12-22)
DX: K64.9 Unspecified hemorrhoids (principal); I50.33 Acute on chronic diastolic (congestive) heart failure; D62 Acute posthemorrhagic anemia; J44.1 Chronic obstructive pulmonary disease with (acute) exacerbation; I13.0 Hypertensive heart and chronic kidney disease with heart failure and stage 1 through stage 4 chronic kidney disease, or unspecified chronic kidney disease; E87.2 Acidosis; D50.9 Iron deficiency anemia, unspecified; I48.2 Chronic atrial fibrillation; I27.29 Other secondary pulmonary hypertension; I25.10 Atherosclerotic heart disease of native coronary artery without angina pectoris; E11.22 Type 2 diabetes mellitus with diabetic chronic kidney disease; E11.40 Type 2 diabetes mellitus with diabetic neuropathy, unspecified; N30.90 Cystitis, unspecified without hematuria; D63.1 Anemia in chronic kidney disease; N18.2 Chronic kidney disease, stage 2 (mild); K76.1 Chronic passive congestion of liver; R62.7 Adult failure to thrive; M17.0 Bilateral primary osteoarthritis of knee; G47.33 Obstructive sleep apnea (adult) (pediatric); I08.3 Combined rheumatic disorders of mitral, aortic and tricuspid valves; Z99.81 Dependence on supplemental oxygen; Z79.01 Long term (current) use of anticoagulants; Z79.84 Long term (current) use of oral hypoglycemic drugs; E66.9 Obesity, unspecified; Z68.36 Body mass index [BMI] 36.0-36.9, adult; Z79.4 Long term (current) use of insulin; Z95.1 Presence of aortocoronary bypass graft; Z95.0 Presence of cardiac pacemaker; Z95.5 Presence of coronary angioplasty implant and graft; Z87.891 Personal history of nicotine dependence; Z91.013 Allergy to seafood